=== PATIENT | male | born 1950 | race Two or more races ===

== ENCOUNTER 2020-08-13 15:10 | Inpatient (IN) | payer MEDICARE, OTHER ==
[2020-08-13] MEDS ORDERED: ONDANSETRON 4 MG/2 ML VIAL IVP STA (15:32)
[2020-08-13] MEDS ORDERED: MORPHINE SULFATE 4 MG/ML SYRINGE IV STA (15:32)
[2020-08-13] MEDS ORDERED: SODIUM CHLORIDE 0.9% 500 ML 500 ML IV STA (15:32)
[2020-08-13] MEDS ORDERED: LABETALOL 5 MG/ML VIAL MDV IVP STA ×2 (15:38→17:25)
--- NOTE | 2020-08-13 15:39 | ED ---
General Adult HPI - General Chief complaint: Weakness Stated complaint: WEAKNESS Time Seen by Provider: 08/13/20 15:15 Source: patient, EMS Mode of arrival: EMS Limitations: no limitations - History of Present Illness Initial comments: Patient presents to the ED by ambulance for evaluation. Patient reports that he has felt generally weak and somewhat dyspneic for the past week or so. Patient states that he been nauseated and has had multiple bouts of emesis today. Patient states that he was helped to the ground a couple of times today secondary to his weakness, but he denies sustaining any injuries. Patient admits to having a diffuse headache since this morning. Patient also admits to having an episode of chest pain at about 9 AM this morning, which he states resolved after a couple of minutes. Patient denies having any chest pain curren tly. Patient also admits to having urinary frequency today. Patient denies fever or chills, head injury, sudden onset of headache, LOC/syncope, neck pain or stiffness, focal numbness/weakness/neuro deficit, visual changes, speech difficulty, neck/back/extremity pain, cough or cold symptoms, palpitations, abdominal pain, diarrhea or constipation (patient states that he had a normal bowel movement earlier today), hematemesis/melena/bloody stools, dysuria, hematuria, leg or calf swelling or pain, or any other symptoms or complaints. Patient's blood glucose was 289 per EMS. Patient states that he does not have a primary care doctor, and he states that he does not see doctors. - Related Data Home Medications Medication Instructions Recorded Confirmed No Known Home Medications 08/13/20 08/13/20 Allergies Allergy/AdvReac Type Severity Reaction Status Date / Time No Known Allergies Allergy Verified 08/13/20 17:13 Review of Systems ROS Statement: Those systems with pertinent positive or pertinent negative responses have been documented in the HPI. ROS Other: All systems not noted in ROS Statement are negative. Past Medical History Past Medical History: No Reported History History of Any Multi-Drug Resistant Organisms: None Reported Past Surgical History: No Surgical Hx Reported Past Psychological History: No Psychological Hx Reported Smoking Status: Current every day smoker Past Alcohol Use History: None Reported Past Drug Use History: Marijuana General Exam Limitations: no limitations General appearance: alert, in no apparent distress Head exam: Present: atraumatic, normocephalic Eye exam: Present: normal appearance, PERRL, EOMI ENT exam: Present: mucous membranes moist Neck exam: Present: other (Trachea is in midline). Absent: tenderness, meningismus Respiratory exam: Present: normal lung sounds bilaterally. Absent: respiratory distress, wheezes, rales, rhonchi, stridor, chest wall tenderness Cardiovascular Exam: Present: normal rhythm, tachycardia, normal heart sounds, other (Normal radial pulses bilaterally) GI/Abdominal exam: Present: soft, normal bowel sounds. Absent: distended, tenderness, guarding Extremities exam: Present: full ROM, other (Pelvis is stable and nontender; negative Homans sign bilaterally). Absent: tenderness, pedal edema, calf tenderness Back exam: Absent: tenderness, CVA tenderness (R), CVA tenderness (L) Neurological exam: Present: alert, oriented X3, CN II-XII intact. Absent: motor sensory deficit Psychiatric exam: Present: normal affect, normal mood Skin exam: Present: warm, dry, intact, normal color Course Vital Signs 08/13/20 08/13/20 08/13/20 15:12 15:54 15:59 Temperature 97.7 F Pulse Rate 103 H 90 Respiratory 18 18 Rate Blood Pressure 233/136 236/155 189/119 O2 Sat by Pulse 97 97 Oximetry 08/13/20 08/13/20 08/13/20 16:22 17:12 17:52 Temperature 98.2 F Pulse Rate 78 81 Respiratory 18 18 Rate Blood Pressure 176/110 211/133 219/139 O2 Sat by Pulse 96 97 Oximetry 08/13/20 08/13/20 18:01 18:17 Temperature 98.2 F Pulse Rate 80 Respiratory 18 Rate Blood Pressure 192/117 162/104 O2 Sat by Pulse 96 Oximetry - Reevaluation(s) Reevaluation #1: 08/13/20 17:30 Case, H&P, test results and ED management thus far were discussed with Dr. Vanegas. He accepts hospital admission. He recommends starting the patient on a Cardene IV drip for blood pressure management. He recommends against heparin anticoagulation at this time. He has no further recommendations at this time. 08/13/20 17:53 Patient denies development of any new symptoms while in the ED. Patient continues to deny having any chest pain while in the ED. Patient has not had any vomiting while in the ED. Patient remains alert and breathing comfortably. Patient is aware of his test results, and he agrees with hospital admission this time. 08/13/20 18:07 Case and ED management were discussed with Dr. Melton (commercial trailer truck driver). He is aware that the patient will be admitted to the ICU. 08/13/20 18:22 Patient's blood pressure has now improved to 162/104. EKG Findings - EKG Comments: EKG Findings:: Sinus tachycardia, ventricular rate of 104 bpm, no ectopy, normal [place] and QRS intervals, QTc interval of 518 ms, normal axis, LVH, nonspecific ST abnormality Medical Decision Making - Medical Decision Making I suspect the patient's symptoms are likely secondary to hypertensive urgency. Patient's troponin is minimally elevated, but he denies having any chest pain since this morning, and his EKG is nonspecific. Patient's head CT shows no acute intracranial abnormality. Patient's CT angiography chest is negative for PE. Patient is afebrile and has no evidence of infection. Patient has been started on a Cardene IV drip for blood pressure management. Dr. Vanegas has seen the patient in the ED and has accepted hospital admission. Patient will be admitted to the ICU given that he is on a Cardene IV drip. Dr. Melton (commercial trailer truck driver) was notified. - Lab Data Result diagrams: 08/13/20 15:44 08/13/20 15:44 Lab Results 08/13/20 08/13/20 08/13/20 Range/Units 15:44 15:44 15:44 WBC 14.5 H (3.8-10.6) k/uL RBC 5.33 (4.30-5.90) m/uL Hgb 17.7 H (13.0-17.5) gm/dL Hct 46.7 (39.0-53.0) % MCV 87.6 (80.0-100.0) fL MCH 33.3 (25.0-35.0) pg MCHC 38.0 H (31.0-37.0) g/dL RDW 13.4 (11.5-15.5) % Plt Count 233 (150-450) k/uL MPV 7.7 Neutrophils % 91 % Lymphocytes % 5 % Monocytes % 3 % Eosinophils % 1 % Basophils % 0 % Neutrophils # 13.3 H (1.3-7.7) k/uL Lymphocytes # 0.7 L (1.0-4.8) k/uL Monocytes # 0.4 (0-1.0) k/uL Eosinophils # 0.1 (0-0.7) k/uL Basophils # 0.0 (0-0.2) k/uL PT 10.6 (9.0-12.0) sec INR 1.0 (<1.2) APTT 22.1 (22.0-30.0) sec D-Dimer 1.45 H (<0.60) mg/L FEU Sodium (137-145) mmol/L Potassium (3.5-5.1) mmol/L Chloride (98-107) mmol/L Carbon Dioxide (22-30) mmol/L Anion Gap mmol/L BUN (9-20) mg/dL Creatinine (0.66-1.25) mg/dL Est GFR (CKD-EPI)AfAm (>60 ml/min/1.73 sqM) Est GFR (CKD-EPI)NonAf (>60 ml/min/1.73 sqM) Glucose (74-99) mg/dL Lactic Ac Sepsis Rflx Plasma Lactic Acid Andrea (0.7-2.0) mmol/L Calcium (8.4-10.2) mg/dL Magnesium (1.6-2.3) mg/dL Total Bilirubin (0.2-1.3) mg/dL AST (17-59) U/L ALT (4-49) U/L Alkaline Phosphatase (38-126) U/L Creatine Kinase (55-170) U/L Troponin I (0.000-0.034) ng/mL NT-Pro-B Natriuret Pep pg/mL Total Protein (6.3-8.2) g/dL Albumin (3.5-5.0) g/dL Urine Color Light Yellow Urine Appearance Clear (Clear) Urine pH 7.5 (5.0-8.0) Ur Specific Garland 1.016 (1.001-1.035) Urine Protein 3+ H (Negative) Urine Glucose (UA) 4+ H (Negative) Urine Ketones Trace H (Negative) Urine Blood Large H (Negative) Urine Nitrite Negative (Negative) Urine Bilirubin Negative (Negative) Urine Urobilinogen <2.0 (<2.0) mg/dL Ur Leukocyte Esterase Negative (Negative) Urine RBC 5 (0-5) /hpf Urine WBC 1 (0-5) /hpf Ur Squamous Epith Cells <1 (0-4) /hpf Hyaline Casts 1 (0-2) /lpf Urine Mucus Rare H (None) /hpf Coronavirus (PCR) (Not Detectd) 08/13/20 08/13/20 08/13/20 Range/Units 15:44 15:44 15:44 WBC (3.8-10.6) k/uL RBC (4.30-5.90) m/uL Hgb (13.0-17.5) gm/dL Hct (39.0-53.0) % MCV (80.0-100.0) fL MCH (25.0-35.0) pg MCHC (31.0-37.0) g/dL RDW (11.5-15.5) % Plt Count (150-450) k/uL MPV Neutrophils % % Lymphocytes % % Monocytes % % Eosinophils % % Basophils % % Neutrophils # (1.3-7.7) k/uL Lymphocytes # (1.0-4.8) k/uL Monocytes # (0-1.0) k/uL Eosinophils # (0-0.7) k/uL Basophils # (0-0.2) k/uL PT (9.0-12.0) sec INR (<1.2) APTT (22.0-30.0) sec D-Dimer (<0.60) mg/L FEU Sodium 137 (137-145) mmol/L Potassium 3.9 (3.5-5.1) mmol/L Chloride 101 (98-107) mmol/L Carbon Dioxide 19 L (22-30) mmol/L Anion Gap 17 mmol/L BUN 17 (9-20) mg/dL Creatinine 1.50 H (0.66-1.25) mg/dL Est GFR (CKD-EPI)AfAm 54 (>60 ml/min/1.73 sqM) Est GFR (CKD-EPI)NonAf 47 (>60 ml/min/1.73 sqM) Glucose 308 H (74-99) mg/dL Lactic Ac Sepsis Rflx Plasma Lactic Acid Andrea 4.8 H* (0.7-2.0) mmol/L Calcium 9.5 (8.4-10.2) mg/dL Magnesium 1.6 (1.6-2.3) mg/dL Total Bilirubin 1.4 H (0.2-1.3) mg/dL AST 41 (17-59) U/L ALT 44 (4-49) U/L Alkaline Phosphatase 130 H (38-126) U/L Creatine Kinase 227 H (55-170) U/L Troponin I 0.105 H* (0.000-0.034) ng/mL NT-Pro-B Natriuret Pep pg/mL Total Protein 9.0 H (6.3-8.2) g/dL Albumin 5.0 (3.5-5.0) g/dL Urine Color Urine Appearance (Clear) Urine pH (5.0-8.0) Ur Specific [place] (1.001-1.035) Urine Protein (Negative) Urine Glucose (UA) (Negative) Urine Ketones (Negative) Urine Blood (Negative) Urine Nitrite (Negative) Urine Bilirubin (Negative) Urine Urobilinogen (<2.0) mg/dL Ur Leukocyte Esterase (Negative) Urine RBC (0-5) /hpf Urine WBC (0-5) /hpf Ur Squamous Epith Cells (0-4) /hpf Hyaline Casts (0-2) /lpf Urine Mucus (None) /hpf Coronavirus (PCR) (Not Detectd) 08/13/20 08/13/20 08/13/20 Range/Units 15:44 15:44 16:14 WBC (3.8-10.6) k/uL RBC (4.30-5.90) m/uL Hgb (13.0-17.5) gm/dL Hct (39.0-53.0) % MCV (80.0-100.0) fL MCH (25.0-35.0) pg MCHC (31.0-37.0) g/dL RDW (11.5-15.5) % Plt Count (150-450) k/uL MPV Neutrophils % % Lymphocytes % % Monocytes % % Eosinophils % % Basophils % % Neutrophils # (1.3-7.7) k/uL Lymphocytes # (1.0-4.8) k/uL Monocytes # (0-1.0) k/uL Eosinophils # (0-0.7) k/uL Basophils # (0-0.2) k/uL PT (9.0-12.0) sec INR (<1.2) APTT (22.0-30.0) sec D-Dimer (<0.60) mg/L FEU Sodium (137-145) mmol/L Potassium (3.5-5.1) mmol/L Chloride (98-107) mmol/L Carbon Dioxide (22-30) mmol/L Anion Gap mmol/L BUN (9-20) mg/dL Creatinine (0.66-1.25) mg/dL Est GFR (CKD-EPI)AfAm (>60 ml/min/1.73 sqM) Est GFR (CKD-EPI)NonAf (>60 ml/min/1.73 sqM) Glucose (74-99) mg/dL Lactic Ac Sepsis Rflx Y Plasma Lactic Acid Andrea (0.7-2.0) mmol/L Calcium (8.4-10.2) mg/dL Magnesium (1.6-2.3) mg/dL Total Bilirubin (0.2-1.3) mg/dL AST (17-59) U/L ALT (4-49) U/L Alkaline Phosphatase (38-126) U/L Creatine Kinase (55-170) U/L Troponin I (0.000-0.034) ng/mL NT-Pro-B Natriuret Pep 9110 pg/mL Total Protein (6.3-8.2) g/dL Albumin (3.5-5.0) g/dL Urine Color Urine Appearance (Clear) Urine pH (5.0-8.0) Ur Specific [place] (1.001-1.035) Urine Protein (Negative) Urine Glucose (UA) (Negative) Urine Ketones (Negative) Urine Blood (Negative) Urine Nitrite (Negative) Urine Bilirubin (Negative) Urine Urobilinogen (<2.0) mg/dL Ur Leukocyte Esterase (Negative) Urine RBC (0-5) /hpf Urine WBC (0-5) /hpf Ur Squamous Epith Cells (0-4) /hpf Hyaline Casts (0-2) /lpf Urine Mucus (None) /hpf Coronavirus (PCR) Not Detected (Not Detectd) - Radiology Data Radiology results: report reviewed (Noncontrast head CT: No acute intracranial abnormality, old left lacunar infarct; chest x-ray: No acute process; CT angiography chest: No acute PE, trace bilateral pleural effusions with minimal atelectasis) Critical Care Time Critical Care Time: Yes Total Critical Care Time: 50 (Hypertensive urgency) Disposition Clinical Impression: Generalized weakness, Vomiting, Dyspnea, Headache, Hypertension, Chest pain, Elevated troponin, Hypertensive urgency Disposition: ADMITTED IP TO THIS [facility] Condition: Stable Is patient prescribed a controlled substance at d/c from ED?: No Referrals: None,Stated [Primary Care Provider] - 1-2 days Time of Disposition: 17:35
[2020-08-13 15:54] LABS: Basophils % (A) 0 %; Eosinophils # (A) 0.1 k/uL (0-0.7); Eosinophils % (A) 1 %; HCT 46.7 % (39.0-53.0); HGB 17.7 gm/dL (13.0-17.5); Lymphocytes # (A) 0.7 k/uL (1.0-4.8); Lymphocytes % (A) 5 %; MCH 33.3 pg (25.0-35.0); MCV 87.6 fL (80.0-100.0); Mean Platelet Volume 7.7; Monocytes # (A) 0.4 k/uL (0-1.0); Monocytes % (A) 3 %; Neutrophils # (A) 13.3 k/uL (1.3-7.7); Neutrophils % (A) 91 %; Platelet Count 233 k/uL (150-450); RBC 5.33 m/uL (4.30-5.90); RDW 13.4 % (11.5-15.5); WBC 14.5 k/uL (3.8-10.6)
[2020-08-13 16:04] LABS: Calcium 9.5 mg/dL (8.4-10.2); Magnesium 1.6 mg/dL (1.6-2.3); Potassium 3.9 mmol/L (3.5-5.1); Total Bilirubin 1.4 mg/dL (0.2-1.3)
[2020-08-13 16:11] LABS: Partial Thromboplastin Time 22.1 sec (22.0-30.0); Prothrombin Time 10.6 sec (9.0-12.0)
[2020-08-13 16:18] LABS: D-Dimer 1.45 mg/L FEU (<0.60)
--- NOTE | 2020-08-13 16:20 | CT ---
EXAMINATION TYPE: CT brain wo con DATE OF EXAM: 08/13/2020 COMPARISON: None available. HISTORY: Weakness, headache and vomiting. CT DLP: 1125.4 mGycm Automated exposure control for dose reduction was used. FINDINGS: There is no acute intracranial hemorrhage, midline shift or hydrocephalus. There is old left lacunar infarct. Otherwise the white matter is grossly preserved. The paranasal sinuses and mastoid air cells are adequately aerated. The calvarium is intact. IMPRESSION: NO ACUTE INTRACRANIAL ABNORMALITY. OLD LEFT LACUNAR INFARCT.
--- NOTE | 2020-08-13 16:23 | XR ---
EXAMINATION TYPE: XR chest 1V portable DATE OF EXAM: 08/13/2020 COMPARISON: NONE HISTORY: Weakness. TECHNIQUE: Single frontal view of the chest is obtained. FINDINGS: There is no focal air space opacity, pleural effusion, or pneumothorax seen. The cardiac silhouette size is borderline enlarged. The osseous structures are intact. IMPRESSION: No acute process.
[2020-08-13] MEDS ORDERED: SODIUM CHLORIDE 0.9% 500 ML 500 ML IV ONE (16:25)
[2020-08-13 16:36] LABS: Appearance,Urine Clear (Clear); Bilirubin,Urine Negative (Negative); Blood,Urine Large (Negative); Color,Urine Light Yellow; Glucose,Urine (UA) 4+ (Negative); Hyaline Casts,Urine 1 /lpf (0-2); Ketones,Urine Trace (Negative); Leukocyte Esterase,Urine Negative (Negative); Mucus,Urine Rare /hpf; Nitrite,Urine Negative (Negative); PH, Urine 7.5 (5.0-8.0); Protein,Urine 3+ (Negative); RBC,Urine 5 /hpf (0-5); Specific Gravity,Urine 1.016 (1.001-1.035); Squamous Epithelial Cell,Urine <1 /hpf (0-4); Urobilinogen,Urine <2.0 mg/dL (<2.0); WBC,Urine 1 /hpf (0-5)
--- NOTE | 2020-08-13 16:57 | CT ---
EXAMINATION TYPE: CT chest angio for PE DATE OF EXAM: 08/13/2020 COMPARISON: Same-day radiograph. HISTORY: elevated d-dimer CT DLP: 525.1 mGycm Automated exposure control for dose reduction was used. CONTRAST: CT Chest for pulmonary embolism performed with with IV Contrast, patient injected with 80cc mL of Iso sierra 370. FINDINGS: LUNGS: There are trace bilateral pleural effusions with adjacent atelectasis. There is mild to modera te centrilobular emphysema. No significant infiltrate, consolidation, pleural effusion or pneumothora x. No suspicious pulmonary nodules. MEDIASTINUM: There is satisfactory enhancement of the pulmonary artery and its branches, there is no CT evidence for pulmonary embolism. There are no greater than 1 cm hilar or mediastinal lymph nodes. No pericardial effusion is seen. OTHER: No additional significant abnormality is seen. IMPRESSION: No acute PE. Trace bilateral pleural effusions with minimal atelectasis.
[2020-08-13] MEDS ORDERED: ASPIRIN 81 MG PO STA (17:25)
[2020-08-13] MEDS: niCARdipine 20 MG in SODIUM CHLORIDE 0.9% 192 ML IV SCH ×2 (17:49→22:22)
[2020-08-13] MEDS ORDERED: NALOXONE 0.4 MG/ML 1 ML VIAL IV PRN (18:43)
[2020-08-13] MEDS ORDERED: IPRATROPIUM-ALBUTEROL 3 ML NEB INHALATION PRN (18:43)
[2020-08-13] MEDS ORDERED: ACETAMINOPHEN TAB 325 MG TAB PO PRN (18:43)
[2020-08-13] MEDS ORDERED: MORPHINE SULFATE 2 MG/ML SYRINGE IV PRN (18:43)
--- NOTE | 2020-08-13 18:50 | P.HPIM ---
History of Present Illness H&P Date: 08/13/20 Chief Complaint: dyspnea, weakness 69 year old man with obesity I, active smoker, who does not see doctors regularly, presented with LE weakness, intermittent chest pain, and dyspnea. Patient is with his who supplements history. They tell me that for the last week, he has developed increased shortness of breath requiring inhalers and updrafts from his 's supply. He also noted episodes of nausea and vomiting, mostly dry heaves. He became so weak that he started to require help to go to the bathroom, and reports he has been urinating more frequently. ROS is positive for pressure like chest pain, dyspnea, LE swelling, nausea, vomiting, headache. Negative for fevers, chills, sick contacts, abd pain, dysuria, dyschezia, loss of appetite, diarrhea, constipation, numbness of extremities. In the ER, patient is noted to be hypertensive to 236/155, 103, afebrile. Labs demonstrate leukocytosis to 14.5, Hgb 17.7. D-Dimer is 1.45. BMP is remarkable for Cr 1.5, LA 4.8, glucose 308. UA shows 3+ protein, 4+ glucose, large blood, 5 RBCs. BNP was elevated to 9110, Troponin was elevated to .105. CXR did not show acute cardiopulmonary pathology. EKG demonstrates sinus tachycardia, LVH, diffuse ST depressions. Review of Systems All Systems reviewed and pertinent positives and negatives noted in HPI, all other symptoms are negative Past Medical History Past Medical History: No Reported History History of Any Multi-Drug Resistant Organisms: None Reported Past Surgical History: No Surgical Hx Reported Past Psychological History: No Psychological Hx Reported Smoking Status: Current every day smoker Past Alcohol Use History: None Reported Past Drug Use History: Marijuana Medications and Allergies Home Medications Medication Instructions Recorded Confirmed Type No Known Home Medications 08/13/20 08/13/20 History Allergies Allergy/AdvReac Type Severity Reaction Status Date / Time No Known Allergies Allergy Verified 08/13/20 17:13 Physical Exam Osteopathic Statement: *. No significant issues noted on an osteopathic structural exam other than those noted in the History and Physical/Consult. Vitals: Vital Signs Temp Pulse Resp BP Pulse Ox 08/13/20 18:01 192/117 08/13/20 17:52 81 18 219/139 97 08/13/20 17:12 98.2 F 78 18 211/133 96 08/13/20 16:22 176/110 08/13/20 15:59 189/119 08/13/20 15:54 90 18 236/155 97 08/13/20 15:12 97.7 F 103 H 18 233/136 97 Intake and Output 08/13/20 08/13/20 08/13/20 06:59 14:59 22:59 Other: Weight 90.718 kg Gen: awake, alert HEENT: normocephalic, atraumatic, good hearing acuity, moist mucous membranes Resp: good air exchange, breathing comfortably with no accessory muscle use, diminished air exchange, posterior crackles CVS: good distal perfusion x 4, RRR, +S4, no murmurs GI: soft, NTTP, ND : no SPT, no CVAT, waldron catheter not present MSK: 2+ pitting edema, no clubbing Neuro: non-focal, moving all extremities Psych: cooperative, euthymic mood Results CBC & Chem 7: 08/13/20 15:44 08/13/20 15:44 Labs: Abnormal Lab Results - Last 24 Hours (Table) 08/13/20 08/13/20 08/13/20 Range/Units 15:44 15:44 15:44 WBC 14.5 H (3.8-10.6) k/uL Hgb 17.7 H (13.0-17.5) gm/dL MCHC 38.0 H (31.0-37.0) g/dL Neutrophils # 13.3 H (1.3-7.7) k/uL Lymphocytes # 0.7 L (1.0-4.8) k/uL D-Dimer 1.45 H (<0.60) mg/L FEU Carbon Dioxide (22-30) mmol/L Creatinine (0.66-1.25) mg/dL Glucose (74-99) mg/dL Plasma Lactic Acid Andrea (0.7-2.0) mmol/L Total Bilirubin (0.2-1.3) mg/dL Alkaline Phosphatase (38-126) U/L Creatine Kinase (55-170) U/L Troponin I (0.000-0.034) ng/mL Total Protein (6.3-8.2) g/dL Urine Protein 3+ H (Negative) Urine Glucose (UA) 4+ H (Negative) Urine Ketones Trace H (Negative) Urine Blood Large H (Negative) Urine Mucus Rare H (None) /hpf 08/13/20 08/13/20 08/13/20 Range/Units 15:44 15:44 15:44 WBC (3.8-10.6) k/uL Hgb (13.0-17.5) gm/dL MCHC (31.0-37.0) g/dL Neutrophils # (1.3-7.7) k/uL Lymphocytes # (1.0-4.8) k/uL D-Dimer (<0.60) mg/L FEU Carbon Dioxide 19 L (22-30) mmol/L Creatinine 1.50 H (0.66-1.25) mg/dL Glucose 308 H (74-99) mg/dL Plasma Lactic Acid Andrea 4.8 H* (0.7-2.0) mmol/L Total Bilirubin 1.4 H (0.2-1.3) mg/dL Alkaline Phosphatase 130 H (38-126) U/L Creatine Kinase 227 H (55-170) U/L Troponin I 0.105 H* (0.000-0.034) ng/mL Total Protein 9.0 H (6.3-8.2) g/dL Urine Protein (Negative) Urine Glucose (UA) (Negative) Urine Ketones (Negative) Urine Blood (Negative) Urine Mucus (None) /hpf Assessment and Plan Assessment: 1. Hypertensive Emergency 2. Elevated Troponin secondary to #1 3. VANIA 4. Acute Heart Failure Exacerbation, unspecified 5. Hyperglycemia 6. Obesity I 7. Nicotine Abuse 69 year old man with obesity, nicotine abuse, who doesnt follow with a doctor presented with dyspnea, weakness, and intermittent chest pain and nausea and was found to have multiple metabolic abnormalities with concern for acute kidney failure and heart failure exacerbation in background of hypertensive emergency. Plan: - admit to telemetry, ICU - trend troponins - EKG PRN for chest pain - pulmonary consult for ICU management - Cardene gtt with goal SBP 160-180 for next 8 hours, then can add oral BP meds and off-titrate gtt - f/u UA microscopy - I/Os, daily weights - lasix 20mg IV daily - echo, pending - A1c pending, aspart low dose SSI - Lipid panel, pending - TSH/FT4, pending - weight loss counseling outpatient - nicotine patch if requested Full Code DVT PPx: heparin 5000U SQ
[2020-08-13 19:00] LABS: Glucose,Whole Blood 246 mg/dL (75-99)
[2020-08-13 20:35] LABS: Appearance,Urine Cloudy (Clear); Bacteria,Urine Rare /hpf; Bilirubin,Urine Negative (Negative); Blood,Urine Moderate (Negative); Color,Urine Light Yellow; Glucose,Urine (UA) 3+ (Negative); Ketones,Urine Negative (Negative); Leukocyte Esterase,Urine Trace (Negative); Mucus,Urine Rare /hpf; Nitrite,Urine Negative (Negative); PH, Urine 5.5 (5.0-8.0); Protein,Urine 2+ (Negative); RBC,Urine 13 /hpf (0-5); Squamous Epithelial Cell,Urine 3 /hpf (0-4); Urobilinogen,Urine <2.0 mg/dL (<2.0); WBC,Urine 9 /hpf (0-5)
[2020-08-13] MEDS: FUROSEMIDE 10 MG/ML 2 ML VIAL IV SCH (20:38)
[2020-08-13 20:55] LABS: Glucose,Whole Blood 228 mg/dL (75-99)
[2020-08-13] MEDS: INSULIN ASPART (NovoLOG) 100 UNIT/ML VIAL SQ SCH (22:21)
[2020-08-14] MEDS: HEPARIN SODIUM,PORCINE 5,000 UNIT/ML 1 ML VIAL SQ SCH ×3 (01:30→17:17)
[2020-08-14] MEDS: niCARdipine 20 MG in SODIUM CHLORIDE 0.9% 192 ML IV SCH ×4 (01:45→17:14)
[2020-08-14] MEDS ORDERED: ONDANSETRON 4 MG/2 ML VIAL IVP PRN (03:25)
[2020-08-14 04:22] LABS: Basophils % (A) 0 %; Eosinophils % (A) 0 %; HCT 47.2 % (39.0-53.0); HGB 16.6 gm/dL (13.0-17.5); Lymphocytes # (A) 1.3 k/uL (1.0-4.8); Lymphocytes % (A) 8 %; MCH 31.2 pg (25.0-35.0); MCHC 35.3 g/dL (31.0-37.0); MCV 88.5 fL (80.0-100.0); Mean Platelet Volume 7.4; Monocytes # (A) 0.8 k/uL (0-1.0); Monocytes % (A) 5 %; Neutrophils # (A) 15.3 k/uL (1.3-7.7); Neutrophils % (A) 87 %; Platelet Count 219 k/uL (150-450); RBC 5.33 m/uL (4.30-5.90); WBC 17.6 k/uL (3.8-10.6)
[2020-08-14 04:28] LABS: Albumin 4.3 g/dL (3.5-5.0); Calcium 9.3 mg/dL (8.4-10.2); Magnesium 1.6 mg/dL (1.6-2.3); Potassium 3.5 mmol/L (3.5-5.1); Total Bilirubin 0.8 mg/dL (0.2-1.3); Total Protein 7.8 g/dL (6.3-8.2)
[2020-08-14] MEDS: POTASSIUM CHLORIDE ER 20 MEQ TAB.ER PO SCH ×2 (06:48→08:31)
[2020-08-14] MEDS: MAGNESIUM SULFATE-D5W PMX 1 GM in DEXTROSE/WATER 1 100ML.BAG IVPB SCH ×2 (06:48→08:31)
[2020-08-14 07:05] LABS: Glucose,Whole Blood 176 mg/dL (75-99)
[2020-08-14] MEDS: INSULIN ASPART (NovoLOG) 100 UNIT/ML VIAL SQ SCH ×4 (07:06→22:16)
[2020-08-14] MEDS ORDERED: INSULIN ASPART (NovoLOG) 100 UNIT/ML VIAL SQ SCH (07:30)
--- NOTE | 2020-08-14 07:40 | XR ---
EXAMINATION TYPE: XR chest 1V portable DATE OF EXAM: 08/14/2020 COMPARISON: 08/13/2020 HISTORY: Shortness of breath TECHNIQUE: Single frontal view of the chest is obtained. FINDINGS: Diffuse or special findings with basilar consolidation and small effusion. Heart is promin ent. No pneumothorax. Osseous structures stable. Arthropathy of the shoulders. IMPRESSION: Diffuse interstitial pattern with bilateral infiltrate and pleural effusion correlate fo r CHF versus interstitial pneumonia.
[2020-08-14] MEDS: FUROSEMIDE 10 MG/ML 2 ML VIAL IV SCH (08:31)
[2020-08-14] MEDS ORDERED: METOPROLOL TARTRATE 25 MG TAB PO SCH (09:00)
[2020-08-14] MEDS ORDERED: amLODIPine 5 MG TAB PO SCH (09:00)
--- NOTE | 2020-08-14 11:00 | CT ---
EXAMINATION TYPE: CT brain wo con DATE OF EXAM: 08/14/2020 COMPARISON: 08/13/2020 HISTORY: falling frequently headache and weakness CT DLP: 1158.4 mGycm Automated exposure control for dose reduction was used. FINDINGS: Mild to moderate generalized degenerative change. Faint low-attenuation white matter bilaterally. Low attenuation left basal ganglia compatible with remote lacunar infarct. No acute hemorrhage or mass effect. No midline shift. Calvarium intact. Orbits are symmetric. Sinuses are clear. Changes of chronic left mastoiditis noted. IMPRESSION: DEGENERATIVE AND REMOTE ISCHEMIC CHANGE.
[2020-08-14 11:15] LABS: Glucose,Whole Blood 169 mg/dL (75-99)
--- NOTE | 2020-08-14 12:08 | P.CNPUL ---
History of Present Illness Consult date: 08/14/20 Requesting physician: Paulino Vanegas Reason for consult: other (Hypertensive emergency) Chief complaint: Weakness and shortness of breath for the past week History of present illness: This is a 69-year-old white male, no previous documented medical history, patient has not been seen by any physician for many years. Patient is on no medications. His was concerned because the patient has been generally weak and somewhat short of breath for the last 1 week. Patient had episodes of na usea and vomiting the day of admission. Patient has also been complaining of intermittent episodes of headaches. And he had 1 episode of chest pain a few hours before he arrived to the ER and it resolved on its own within a few minutes. He also had frequent urinations. Had no fever no chills, no cough, no wheezing. No syncopal episodes. No blurred vision. No dizziness. No melena no hematemesis. No bloody stools. Patient was brought into the ER by EMS because of the concern raised by his regarding his symptoms. And his blood sugar in the ambulance was 289. Blood pressure in the ER was 236/155. His BNP was 9110, and his troponin was a bit elevated. Chest x-ray showed no evidence of acute cardiopulmonary process. EKG was abnormal showing diffuse ST depressions. Considering his hypertensive emergency presentation, and multiple symptoms, patient was admitted to the ICU overnight, and he was placed on Cardene drip. Patient is yet to be seen by cardiology on consultation for his elevated troponin. I did recommend starting the patient on beta blockers and calcium channel blockers, and we'll try to discontinue Cardene sometime later today. CBC showed leukocytosis. WBC count 17.6. Otherwise the CBC was normal. BUN was noted to be 20 creatinine 1.82, consistent with acute kidney injury. No base line creatinine available. Troponin was 0.127, follow-up troponin was 0.126. Review of Systems Constitutional: Denies weight loss, denies fever chills denies any constitutional symptoms. HEENT: Negative. Pulmonary: Minimal shortness of breath prior to presentation, presently asymptomatic, denies shortness of breath denies chest pain, denies any cough or wheezing. Cardiac: As noted in HPI. GI: Negative. Genitourinary: Negative. Musculoskeletal: Weakness for the last 1 week. Endocrine: Frequent urination, polydipsia, no heat or cold intolerance. Hematologic: No clotting bleeding or bruising Psychiatric: No symptoms of active depression. Neurologic: Headache and intermittent episodes of weakness and falling according to his . Skin: No rash Past Medical History Past Medical History: No Reported History History of Any Multi-Drug Resistant Organisms: None Reported Past Surgical History: No Surgical Hx Reported Past Anesthesia/Blood Transfusion Reactions: No Reported Reaction Smoking Status: Current every day smoker, Heavy tobacco smoker - Past Family History Father Family Medical History: Diabetes Mellitus, Myocardial Infarction ([place]) Additional Family Medical History / Comment(s): Had leg amputation Mother History Unknown: Yes Family Medical History: No Reported History Sister(s) Family Medical History: Diabetes Mellitus Additional Family Medical History / Comment(s): 1 sister had arm amputated due to diabetes Medications and Allergies Home Medications Medication Instructions Recorded Confirmed Type No Known Home Medications 08/13/20 08/13/20 History Allergies Allergy/AdvReac Type Severity Reaction Status Date / Time No Known Allergies Allergy Verified 08/13/20 17:13 Physical Exam Vitals: Vital Signs Temp Pulse Resp BP Pulse Ox 08/14/20 11:00 87 23 154/97 94 L 08/14/20 10:30 166/104 08/14/20 10:15 91 18 159/102 94 L 08/14/20 10:00 92 18 169/104 95 08/14/20 09:45 94 21 169/106 95 08/14/20 09:30 96 14 94 L 08/14/20 09:15 98 23 171/107 95 08/14/20 09:00 94 17 160/102 95 08/14/20 08:45 98 16 158/118 94 L 08/14/20 08:30 99 14 136/95 93 L 08/14/20 08:15 93 19 132/91 94 L 08/14/20 08:00 99.1 F 93 18 136/95 94 L 08/14/20 07:45 95 28 H 153/101 95 08/14/20 07:30 93 21 158/96 94 L 08/14/20 07:22 98 08/14/20 07:00 99 15 169/103 95 08/14/20 06:45 94 18 162/94 93 L 08/14/20 06:30 94 17 157/100 93 L 08/14/20 06:15 95 21 159/92 94 L 08/14/20 06:00 92 17 151/98 93 L 08/14/20 05:45 94 16 159/98 93 L 08/14/20 05:30 92 17 163/98 95 08/14/20 05:15 92 20 164/95 94 L 08/14/20 05:00 92 20 157/104 95 08/14/20 04:45 89 14 148/94 94 L 08/14/20 04:30 87 18 145/91 94 L 08/14/20 04:15 87 17 145/93 94 L 08/14/20 04:00 98.5 F 92 17 147/101 93 L 08/14/20 03:45 113 H 22 92 L 08/14/20 03:30 96 15 155/98 94 L 08/14/20 03:15 96 19 148/90 95 08/14/20 03:00 93 19 157/97 94 L 08/14/20 02:45 94 17 154/95 94 L 08/14/20 02:30 91 16 159/101 94 L 08/14/20 02:15 90 19 150/95 93 L 08/14/20 02:00 90 17 142/92 94 L 08/14/20 01:45 92 18 161/100 94 L 08/14/20 01:30 93 18 160/99 95 08/14/20 01:15 88 17 150/91 94 L 08/14/20 01:00 86 14 140/91 94 L 08/14/20 00:45 87 16 146/123 95 08/14/20 00:30 81 12 145/87 93 L 08/14/20 00:15 89 12 140/94 94 L 08/14/20 00:00 98.3 F 86 15 142/87 95 08/13/20 23:45 85 15 144/87 95 08/13/20 23:30 86 14 146/89 95 08/13/20 23:15 87 16 180/106 96 08/13/20 23:00 87 20 138/88 93 L 08/13/20 22:45 86 17 149/91 93 L 08/13/20 22:30 91 20 157/100 93 L 08/13/20 22:15 87 13 151/96 94 L 08/13/20 22:00 87 20 146/99 94 L 08/13/20 21:45 89 22 167/105 94 L 08/13/20 21:30 97 16 153/92 94 L 08/13/20 21:15 81 17 157/99 94 L 08/13/20 21:00 84 20 149/99 94 L 08/13/20 20:45 85 18 160/102 95 08/13/20 20:30 82 16 164/103 95 08/13/20 20:15 81 17 150/93 95 08/13/20 20:00 98.2 F 83 17 158/96 96 08/13/20 19:45 89 19 124/87 96 08/13/20 19:30 80 16 136/92 94 L 08/13/20 19:20 79 17 94 L 08/13/20 19:10 82 14 155/95 94 L 08/13/20 19:00 81 14 175/100 95 08/13/20 18:52 84 14 08/13/20 18:41 156/97 08/13/20 18:27 79 18 166/99 97 08/13/20 18:17 98.2 F 80 18 162/104 96 08/13/20 18:01 192/117 08/13/20 17:52 81 18 219/139 97 08/13/20 17:12 98.2 F 78 18 211/133 96 08/13/20 16:22 176/110 08/13/20 15:59 189/119 08/13/20 15:54 90 18 236/155 97 08/13/20 15:12 97.7 F 103 H 18 233/136 97 Intake and Output 08/13/20 08/14/20 08/14/20 22:59 06:59 14:59 Intake Total 646.000 869.167 353.667 Output Total 550 1210 585 Balance 96.000 -340.833 -231.333 Intake: IV 120 0.9 20 Magnesium Sulfate-D5w Pmx 100 1 gm In Dextrose/Water 1 100ml.bag @ 100 mls/hr IVPB Q1H [facility]CI[facility]O Rx#: [id number] Intake, IV Titration 196.000 369.167 133.667 Amount niCARdipine 20 mg In 196.000 369.167 133.667 Sodium Chloride 0.9% 192 ml @ 5 MG/HR 50 mls/hr IV .Q4H [facility]CI[facility]O Rx#:[id number] Oral 450 500 100 Output: Urine 550 710 585 Emesis 500 Other: Voiding Method Urinal Urinal Urinal # Voids 0 0 0 Weight 96 kg 98.5 kg Physical Exam: Revealed 69-year-old white male in no distress. Head: Atraumatic, normocephalic. HEENT:[Neck is supple.] [No neck masses.] [No thyromegaly.] [No JVD.] Chest: [Clear throughout, no crackles, no rhonchi, no wheezes.] Cardiac Exam: [Normal S1 and S2, no S3 gallop, no murmur.] Abdomen: [Soft, nontender, no megaly, no rebound, no guarding, normal bowel sounds.] Extremities: [No clubbing, no edema, no cyanosis.] Neurological Exam: [No focal neurologic deficit.] Alert and oriented 3. Psychiatric: Normal mood, affect and normal mental status examination. Skin: No rashes. Musculoskeletal: No limitation in range of motion and no deformities. Results - Laboratory Findings CBC and BMP: 08/14/20 03:52 08/14/20 03:52 PT/INR, D-dimer PT 10.6 sec (9.0-12.0) 08/13/20 15:44 INR 1.0 (<1.2) 08/13/20 15:44 D-Dimer 1.45 mg/L FEU (<0.60) H 08/13/20 15:44 Abnormal lab findings: Abnormal Labs 08/13/20 08/13/20 08/13/20 15:44 15:44 15:44 WBC 14.5 H Hgb 17.7 H MCHC 38.0 H Neutrophils # 13.3 H Lymphocytes # 0.7 L D-Dimer 1.45 H Carbon Dioxide Creatinine Glucose POC Glucose (mg/dL) Plasma Lactic Acid Andrea Total Bilirubin Alkaline Phosphatase Creatine Kinase Troponin I Total Protein Triglycerides Cholesterol LDL Cholesterol, Calc Urine Protein 3+ H Urine Glucose (UA) 4+ H Urine Ketones Trace H Urine Blood Large H Ur Leukocyte Esterase Urine RBC Urine WBC Urine Bacteria Urine Mucus Rare H 08/13/20 08/13/20 08/13/20 15:44 15:44 15:44 WBC Hgb MCHC Neutrophils # Lymphocytes # D-Dimer Carbon Dioxide 19 L Creatinine 1.50 H Glucose 308 H POC Glucose (mg/dL) Plasma Lactic Acid Andrea 4.8 H* Total Bilirubin 1.4 H Alkaline Phosphatase 130 H Creatine Kinase 227 H Troponin I 0.105 H* Total Protein 9.0 H Triglycerides Cholesterol LDL Cholesterol, Calc Urine Protein Urine Glucose (UA) Urine Ketones Urine Blood Ur Leukocyte Esterase Urine RBC Urine WBC Urine Bacteria Urine Mucus 08/13/20 08/13/20 08/13/20 18:25 18:25 18:59 WBC Hgb MCHC Neutrophils # Lymphocytes # D-Dimer Carbon Dioxide Creatinine Glucose POC Glucose (mg/dL) 246 H Plasma Lactic Acid Andrea 2.7 H* Total Bilirubin Alkaline Phosphatase Creatine Kinase Troponin I 0.123 H* Total Protein Triglycerides Cholesterol LDL Cholesterol, Calc Urine Protein Urine Glucose (UA) Urine Ketones Urine Blood Ur Leukocyte Esterase Urine RBC Urine WBC Urine Bacteria Urine Mucus 08/13/20 08/13/20 08/13/20 20:15 20:46 21:20 WBC Hgb MCHC Neutrophils # Lymphocytes # D-Dimer Carbon Dioxide Creatinine Glucose POC Glucose (mg/dL) 228 H Plasma Lactic Acid Andrea Total Bilirubin Alkaline Phosphatase Creatine Kinase Troponin I 0.127 H* Total Protein Triglycerides Cholesterol LDL Cholesterol, Calc Urine Protein 2+ H Urine Glucose (UA) 3+ H Urine Ketones Urine Blood Moderate H Ur Leukocyte Esterase Trace H Urine RBC 13 H Urine WBC 9 H Urine Bacteria Rare H Urine Mucus Rare H 08/14/20 08/14/20 08/14/20 03:52 03:52 03:52 WBC 17.6 H Hgb MCHC Neutrophils # 15.3 H Lymphocytes # D-Dimer Carbon Dioxide Creatinine 1.82 H Glucose 178 H POC Glucose (mg/dL) Plasma Lactic Acid Andrea Total Bilirubin Alkaline Phosphatase Creatine Kinase Troponin I 0.126 H* Total Protein Triglycerides 161 H Cholesterol 260 H LDL Cholesterol, Calc 176 H Urine Protein Urine Glucose (UA) Urine Ketones Urine Blood Ur Leukocyte Esterase Urine RBC Urine WBC Urine Bacteria Urine Mucus 08/14/20 08/14/20 07:03 11:13 WBC Hgb MCHC Neutrophils # Lymphocytes # D-Dimer Carbon Dioxide Creatinine Glucose POC Glucose (mg/dL) 176 H 169 H Plasma Lactic Acid Andrea Total Bilirubin Alkaline Phosphatase Creatine Kinase Troponin I Total Protein Triglycerides Cholesterol LDL Cholesterol, Calc Urine Protein Urine Glucose (UA) Urine Ketones Urine Blood Ur Leukocyte Esterase Urine RBC Urine WBC Urine Bacteria Urine Mucus - Diagnostic Findings Chest x-ray: image reviewed (Chest x-ray this morning showed evidence of mild interstitial edema.) CT scan - chest: image reviewed (Chest x-ray on admission showed no evidence of active disease. Follow-up chest x-ray this morning is suggestive of mild interstitial edema.), other Additional studies: Brain CT is unremarkable. Assessment and Plan Assessment: Impression: Acute hypertensive emergency. Acute diastolic congestive heart failure secondary to hypertensive emergency. Acute kidney injury secondary to hypertensive emergency. Type 2 diabetes is strongly suspected. Nicotine dependence syndrome. Suspect non-ST elevation myocardial infarction. Recommendation: Continue present supportive care measures in the ICU. Start patient on oral blood pressure medications and titrate Cardene down until discontinued. Cardiology to see the patient on consultation. Gentle diuresis would be recommended at this point considering the patient is developing mild interstitial edema. Echocardiogram is pending. Nicotine patch is recommended. Continue GI and DVT prophylaxis. We'll start the patient on metoprolol and on amlodipine. We'll continue to follow closely while in the ICU. Time with Patient: Greater than 30
[2020-08-14] MEDS: ASPIRIN 81 MG PO SCH (12:18)
[2020-08-14] MEDS ORDERED: hydrALAZINE HCL 25 MG TAB PO PRN (12:43)
[2020-08-14] MEDS ORDERED: ISOSORBIDE MONONITRATE ER 30 MG TAB.ER.24H PO SCH (12:45)
--- NOTE | 2020-08-14 12:57 | P.PN ---
Subjective Progress Note Date: 08/14/20 No new complaints. Pt reports resolution of nausea, vomiting, headache, chest pain, and improvement in dyspnea. Still reports LE weakness. Objective - Vital Signs Vital signs: Vital Signs Temp 99.8 F H 08/14/20 12:00 Pulse 78 08/14/20 12:15 Resp 19 08/14/20 12:15 BP 139/103 08/14/20 12:15 Pulse Ox 94 L 08/14/20 12:15 Intake & Output 08/13/20 08/14/20 08/14/20 18:59 06:59 18:59 Intake Total 1515.167 432.834 Output Total 1760 585 Balance -244.833 -152.166 Weight 90.718 kg 98.5 kg Intake: IV 130 0.9 30 Magnesium Sulfate-D5w Pmx 100 1 gm In Dextrose/Water 1 100ml.bag @ 100 mls/hr IVPB Q1H [facility] Rx#: [id number] Intake, IV Titration 565.167 202.834 Amount niCARdipine 20 mg In 565.167 202.834 Sodium Chloride 0.9% 192 ml @ 5 MG/HR 50 mls/hr IV .Q4H [facility] Rx#:[id number] Oral 950 100 Output: Urine 1260 585 Emesis 500 Other: Voiding Method Urinal Urinal # Voids 0 0 - Exam Gen: awake, alert HEENT: normocephalic, atraumatic, good hearing acuity, moist mucous membranes Resp: good air exchange, breathing comfortably with no accessory muscle use, diminished air exchange, posterior crackles CVS: good distal perfusion x 4, RRR, +S4, no murmurs GI: soft, NTTP, ND : no SPT, no CVAT, waldron catheter not present MSK: trace pitting edema, no clubbing Neuro: non-focal, moving all extremities Psych: cooperative, euthymic mood - Labs CBC & Chem 7: 08/14/20 03:52 08/14/20 03:52 Labs: Abnormal Lab Results - Last 24 Hours (Table) 08/13/20 08/13/20 08/13/20 Range/Units 15:44 15:44 15:44 WBC 14.5 H (3.8-10.6) k/uL Hgb 17.7 H (13.0-17.5) gm/dL MCHC 38.0 H (31.0-37.0) g/dL Neutrophils # 13.3 H (1.3-7.7) k/uL Lymphocytes # 0.7 L (1.0-4.8) k/uL D-Dimer 1.45 H (<0.60) mg/L FEU Carbon Dioxide (22-30) mmol/L Creatinine (0.66-1.25) mg/dL Glucose (74-99) mg/dL POC Glucose (mg/dL) (75-99) mg/dL Plasma Lactic Acid Andrea (0.7-2.0) mmol/L Total Bilirubin (0.2-1.3) mg/dL Alkaline Phosphatase (38-126) U/L Creatine Kinase (55-170) U/L Troponin I (0.000-0.034) ng/mL Total Protein (6.3-8.2) g/dL Triglycerides (<150) mg/dL Cholesterol (<200) mg/dL LDL Cholesterol, Calc (0-99) mg/dL Urine Protein 3+ H (Negative) Urine Glucose (UA) 4+ H (Negative) Urine Ketones Trace H (Negative) Urine Blood Large H (Negative) Ur Leukocyte Esterase (Negative) Urine RBC (0-5) /hpf Urine WBC (0-5) /hpf Urine Bacteria (None) /hpf Urine Mucus Rare H (None) /hpf 08/13/20 08/13/20 08/13/20 Range/Units 15:44 15:44 15:44 WBC (3.8-10.6) k/uL Hgb (13.0-17.5) gm/dL MCHC (31.0-37.0) g/dL Neutrophils # (1.3-7.7) k/uL Lymphocytes # (1.0-4.8) k/uL D-Dimer (<0.60) mg/L FEU Carbon Dioxide 19 L (22-30) mmol/L Creatinine 1.50 H (0.66-1.25) mg/dL Glucose 308 H (74-99) mg/dL POC Glucose (mg/dL) (75-99) mg/dL Plasma Lactic Acid Andrea 4.8 H* (0.7-2.0) mmol/L Total Bilirubin 1.4 H (0.2-1.3) mg/dL Alkaline Phosphatase 130 H (38-126) U/L Creatine Kinase 227 H (55-170) U/L Troponin I 0.105 H* (0.000-0.034) ng/mL Total Protein 9.0 H (6.3-8.2) g/dL Triglycerides (<150) mg/dL Cholesterol (<200) mg/dL LDL Cholesterol, Calc (0-99) mg/dL Urine Protein (Negative) Urine Glucose (UA) (Negative) Urine Ketones (Negative) Urine Blood (Negative) Ur Leukocyte Esterase (Negative) Urine RBC (0-5) /hpf Urine WBC (0-5) /hpf Urine Bacteria (None) /hpf Urine Mucus (None) /hpf 08/13/20 08/13/20 08/13/20 Range/Units 18:25 18:25 18:59 WBC (3.8-10.6) k/uL Hgb (13.0-17.5) gm/dL MCHC (31.0-37.0) g/dL Neutrophils # (1.3-7.7) k/uL Lymphocytes # (1.0-4.8) k/uL D-Dimer (<0.60) mg/L FEU Carbon Dioxide (22-30) mmol/L Creatinine (0.66-1.25) mg/dL Glucose (74-99) mg/dL POC Glucose (mg/dL) 246 H (75-99) mg/dL Plasma Lactic Acid Andrea 2.7 H* (0.7-2.0) mmol/L Total Bilirubin (0.2-1.3) mg/dL Alkaline Phosphatase (38-126) U/L Creatine Kinase (55-170) U/L Troponin I 0.123 H* (0.000-0.034) ng/mL Total Protein (6.3-8.2) g/dL Triglycerides (<150) mg/dL Cholesterol (<200) mg/dL LDL Cholesterol, Calc (0-99) mg/dL Urine Protein (Negative) Urine Glucose (UA) (Negative) Urine Ketones (Negative) Urine Blood (Negative) Ur Leukocyte Esterase (Negative) Urine RBC (0-5) /hpf Urine WBC (0-5) /hpf Urine Bacteria (None) /hpf Urine Mucus (None) /hpf 08/13/20 08/13/20 08/13/20 Range/Units 20:15 20:46 21:20 WBC (3.8-10.6) k/uL Hgb (13.0-17.5) gm/dL MCHC (31.0-37.0) g/dL Neutrophils # (1.3-7.7) k/uL Lymphocytes # (1.0-4.8) k/uL D-Dimer (<0.60) mg/L FEU Carbon Dioxide (22-30) mmol/L Creatinine (0.66-1.25) mg/dL Glucose (74-99) mg/dL POC Glucose (mg/dL) 228 H (75-99) mg/dL Plasma Lactic Acid Andrea (0.7-2.0) mmol/L Total Bilirubin (0.2-1.3) mg/dL Alkaline Phosphatase (38-126) U/L Creatine Kinase (55-170) U/L Troponin I 0.127 H* (0.000-0.034) ng/mL Total Protein (6.3-8.2) g/dL Triglycerides (<150) mg/dL Cholesterol (<200) mg/dL LDL Cholesterol, Calc (0-99) mg/dL Urine Protein 2+ H (Negative) Urine Glucose (UA) 3+ H (Negative) Urine Ketones (Negative) Urine Blood Moderate H (Negative) Ur Leukocyte Esterase Trace H (Negative) Urine RBC 13 H (0-5) /hpf Urine WBC 9 H (0-5) /hpf Urine Bacteria Rare H (None) /hpf Urine Mucus Rare H (None) /hpf 08/14/20 08/14/20 08/14/20 Range/Units 03:52 03:52 03:52 WBC 17.6 H (3.8-10.6) k/uL Hgb (13.0-17.5) gm/dL MCHC (31.0-37.0) g/dL Neutrophils # 15.3 H (1.3-7.7) k/uL Lymphocytes # (1.0-4.8) k/uL D-Dimer (<0.60) mg/L FEU Carbon Dioxide (22-30) mmol/L Creatinine 1.82 H (0.66-1.25) mg/dL Glucose 178 H (74-99) mg/dL POC Glucose (mg/dL) (75-99) mg/dL Plasma Lactic Acid Andrea (0.7-2.0) mmol/L Total Bilirubin (0.2-1.3) mg/dL Alkaline Phosphatase (38-126) U/L Creatine Kinase (55-170) U/L Troponin I 0.126 H* (0.000-0.034) ng/mL Total Protein (6.3-8.2) g/dL Triglycerides 161 H (<150) mg/dL Cholesterol 260 H (<200) mg/dL LDL Cholesterol, Calc 176 H (0-99) mg/dL Urine Protein (Negative) Urine Glucose (UA) (Negative) Urine Ketones (Negative) Urine Blood (Negative) Ur Leukocyte Esterase (Negative) Urine RBC (0-5) /hpf Urine WBC (0-5) /hpf Urine Bacteria (None) /hpf Urine Mucus (None) /hpf 08/14/20 08/14/20 Range/Units 07:03 11:13 WBC (3.8-10.6) k/uL Hgb (13.0-17.5) gm/dL MCHC (31.0-37.0) g/dL Neutrophils # (1.3-7.7) k/uL Lymphocytes # (1.0-4.8) k/uL D-Dimer (<0.60) mg/L FEU Carbon Dioxide (22-30) mmol/L Creatinine (0.66-1.25) mg/dL Glucose (74-99) mg/dL POC Glucose (mg/dL) 176 H 169 H (75-99) mg/dL Plasma Lactic Acid Andrea (0.7-2.0) mmol/L Total Bilirubin (0.2-1.3) mg/dL Alkaline Phosphatase (38-126) U/L Creatine Kinase (55-170) U/L Troponin I (0.000-0.034) ng/mL Total Protein (6.3-8.2) g/dL Triglycerides (<150) mg/dL Cholesterol (<200) mg/dL LDL Cholesterol, Calc (0-99) mg/dL Urine Protein (Negative) Urine Glucose (UA) (Negative) Urine Ketones (Negative) Urine Blood (Negative) Ur Leukocyte Esterase (Negative) Urine RBC (0-5) /hpf Urine WBC (0-5) /hpf Urine Bacteria (None) /hpf Urine Mucus (None) /hpf Assessment and Plan Assessment: 1. Hypertensive Emergency 2. Elevated Troponin secondary to #1 3. VANIA 4. Acute Heart Failure Exacerbation, unspecified 5. Hyperglycemia 6. Obesity I 7. Nicotine Abuse 69 year old man with obesity, nicotine abuse, who doesnt follow with a doctor presented with dyspnea, weakness, and intermittent chest pain and nausea and was found to have multiple metabolic abnormalities with concern for acute kidney failure and heart failure exacerbation in background of hypertensive emergency. Plan: - admit to telemetry, ICU - trend troponins - EKG PRN for chest pain - pulmonary consult for ICU management - cardiology consult, pending - Cardene gtt, wean as tolerated - amlodipine 5mg + metoprolol 25mg BID + imdur 30mg daily - hydralazine 25mg QID PRN for BP > 150/95 - I/Os, daily weights - lasix 20mg IV daily - echo, pending - A1c pending - aspart low dose SSI - Lipid panel = LDL 176, HDL 52 - started ASA 81mg daily - started atorvastatin 40mg qHS - TSH = 1.62 - f/u UA microscopy = 1 hyaline casts, 13 RBCs, 9 WBCs - weight loss counseling outpatient - nicotine patch if requested Full Code DVT PPx: heparin 5000U SQ
[2020-08-14] MEDS ORDERED: METOPROLOL TARTRATE 25 MG TAB PO STA (13:21)
[2020-08-14] MEDS ORDERED: amLODIPine 5 MG TAB PO STA (13:22)
--- NOTE | 2020-08-14 13:58 | US ---
EXAMINATION TYPE: US venous doppler duplex LE BI DATE OF EXAM: 08/14/2020 1:37 PM COMPARISON: NONE CLINICAL HISTORY: r/o DVT. Pulmonary embolism SIDE PERFORMED: Bilateral TECHNIQUE: The lower extremity deep venous system is examined utilizing real time linear array sonog joana with graded compression, doppler sonography and color-flow sonography. VESSELS IMAGED: Common Femoral Vein Deep Femoral Vein Greater Saphenous Vein * Femoral Vein Popliteal Vein Small Saphenous Vein * Proximal Calf Veins (* superficial vessels) Right Leg: Negative for DVT Left Leg: Negative for DVT IMPRESSION: No evidence of bilateral lower extremity DVT.
[2020-08-14] MEDS: NICOTINE 21MG/24HR PATCH TRANSDERM SCH (14:57)
[2020-08-14 15:29] LABS: Hemoglobin A1C 6.2 % (4.0-6.0)
[2020-08-14 17:04] LABS: Glucose,Whole Blood 176 mg/dL (75-99)
--- NOTE | 2020-08-14 18:23 | CONS ---
WHITNEY Silver is a 69-year-old gentleman with no significant past medical history who has never seen a physician, came into hospital with symptoms of lower extremity weakness, intermittent chest pain and shortness of breath. He had severely elevated blood pressures with systolic of 236 and diastolic of 155 and had evidence of renal insufficiency and there was 3+ proteinuria. The troponin was mildly elevated and BNP was elevated. EKG showed sinus tachycardia with changes of left ventricular hypertrophy. Cardiology has been consulted because of elevated troponin. At the time of my evaluation, patient appears comfortable at rest. Chest pain has resolved. Blood pressure is better controlled on nicardipine drip. The plan at this stage is to put him on amlodipine 10 mg daily, increase the dose of metoprolol to 50 b.i.d., taper and stop the IV medication and start hydralazine if necessary. I will obtain a 2D echo tomorrow to assess his LV function. The patient had elevated D-dimer and went on to have a CT scan of the chest that was negative for pulmonary embolism. BNP is elevated at 11,800. The cholesterol was 260 with an LDL of 176. TSH was normal. The patient has hypertensive heart disease and hypertensive emergency. The troponin elevation is related to severe uncontrolled hypertension. The BNP elevation is also probably related to the same. The patient could have acute diastolic heart failure. I expect him to get better once the blood pressures are better controlled. PAST MEDICAL HISTORY: Negative for hypertension, diabetes, dyslipidemia. MEDICATIONS: None. ALLERGIES: None. FAMILY HISTORY: Negative for premature coronary artery disease. SOCIAL HISTORY: Negative for current smoking, ETOH abuse or drug abuse. REVIEW OF SYSTEMS: HEENT: Unremarkable. CARDIAC: As described above. RESPIRATORY: Negative. GI: Negative. : Negative. ALLERGY/IMMUNOLOGY: Negative. SKIN: Negative. MUSCULOSKELETAL: Significant for arthritis. PSYCHOSOCIAL: Negative. ENDOCRINE: Negative. CONSTITUTIONAL: Negative. ONCOLOGICAL: Negative. Rest of the system review is not relevant. EXAM: Heart rate is 78 beats per minute, blood pressure is 145/97, respiratory rate is 18. Chest exam reveals good air entry bilaterally. Heart exam reveals first and second heart sounds. An S4 is heard. Abdomen is soft, nontender. Examination of the extremities did not reveal any edema. Peripheral pulses are felt. LABS: Show a hemoglobin of 16.6, platelet count is 219, potassium is 3.5, creatinine is elevated at 1.8. Troponins are elevated. ASSESSMENT: 1. Severe uncontrolled hypertension with hypertensive urgency. 2. Acute renal insufficiency, probably related to severe uncontrolled hypertension. 3. Elevated troponin related to hypertensive heart disease. 4. Acute diastolic heart failure. PLAN: I will obtain a 2D echo, optimize his blood pressure control and if he remains asymptomatic after discharge I will consider an outpatient stress test on him. [id number] / IJN: [id number] /
[2020-08-14 20:50] LABS: Glucose,Whole Blood 155 mg/dL (75-99)
[2020-08-14] MEDS: ATORVASTATIN 40 MG TAB PO SCH (22:14)
[2020-08-14] MEDS: METOPROLOL TARTRATE 50 MG TAB PO SCH (22:14)
[2020-08-15] MEDS: HEPARIN SODIUM,PORCINE 5,000 UNIT/ML 1 ML VIAL SQ SCH ×3 (00:32→17:48)
[2020-08-15 03:59] LABS: Basophils % (A) 0 %; Eosinophils # (A) 0.1 k/uL (0-0.7); Eosinophils % (A) 1 %; HCT 40.7 % (39.0-53.0); HGB 13.7 gm/dL (13.0-17.5); Lymphocytes # (A) 3.1 k/uL (1.0-4.8); Lymphocytes % (A) 21 %; MCH 29.7 pg (25.0-35.0); MCHC 33.7 g/dL (31.0-37.0); MCV 87.9 fL (80.0-100.0); Monocytes # (A) 0.8 k/uL (0-1.0); Monocytes % (A) 5 %; Neutrophils # (A) 10.5 k/uL (1.3-7.7); Neutrophils % (A) 72 %; Platelet Count 224 k/uL (150-450); RBC 4.63 m/uL (4.30-5.90); RDW 13.6 % (11.5-15.5); WBC 14.6 k/uL (3.8-10.6)
[2020-08-15 04:18] LABS: Calcium 8.9 mg/dL (8.4-10.2); Potassium 3.4 mmol/L (3.5-5.1)
[2020-08-15 07:00] LABS: Glucose,Whole Blood 151 mg/dL (75-99)
[2020-08-15] MEDS: INSULIN ASPART (NovoLOG) 100 UNIT/ML VIAL SQ SCH ×4 (07:12→21:04)
--- NOTE | 2020-08-15 08:31 | P.PN ---
Subjective Progress Note Date: 08/15/20 Principal diagnosis: Hypertension urgency This is a pleasant 69-year-old gentleman with no significant past medical history who was admitted to the hospital initially with a change in mental status and uncontrolled blood pressure. The patient was seen today August 152020. Unfortunately the pressure continues to be not well-controlled on the current medical regimen including Norvasc at 10 mg by mouth daily and isosorbide mononitrate 30 mg by mouth daily. He is also on metoprolol but the heart rate has been in the 60s. I'm going to increase the dose of isosorbide mononitrate to 60 mg by mouth daily and also add hydralazine at 25 mg by mouth 3 times a day to the current medical regimen. His urine output has been marginal and I advise obtaining a nephrology consult. He is also on Lasix at 20 mg by mouth daily. On examination he does have a systolic murmur and an echocardiogram is in process to be done Objective - Vital Signs Vital signs: Vital Signs Temp 97.5 F L 08/15/20 04:00 Pulse 75 08/15/20 07:00 Resp 14 08/15/20 07:00 BP 141/89 08/15/20 07:00 Pulse Ox 95 08/15/20 07:00 Intake & Output 08/14/20 08/15/20 08/15/20 18:59 06:59 18:59 Intake Total 555.834 440 Output Total 985 350 100 Balance -429.166 90 -100 Weight 96.6 kg Intake: IV 190 40 0.9 90 40 Magnesium Sulfate-D5w Pmx 100 1 gm In Dextrose/Water 1 100ml.bag @ 100 mls/hr IVPB Q1H [facility] Rx#: [id number] Intake, IV Titration 265.834 Amount niCARdipine 20 mg In 265.834 Sodium Chloride 0.9% 192 ml @ 5 MG/HR 50 mls/hr IV .Q4H [facility] Rx#:[id number] Oral 100 400 Output: Urine 985 350 100 Other: Voiding Method Urinal Urinal # Voids 0 0 - Constitutional General appearance: Present: no acute distress - Respiratory Respiratory: bilateral: diminished - Cardiovascular Rhythm: regular Heart sounds: normal: S1, S2 Abnormal Heart Sounds: Present: systolic murmur - Labs CBC & Chem 7: 08/15/20 03:33 08/15/20 03:33 Labs: Abnormal Lab Results - Last 24 Hours (Table) 08/14/20 08/14/20 08/14/20 Range/Units 03:52 11:13 17:03 WBC (3.8-10.6) k/uL Neutrophils # (1.3-7.7) k/uL Sodium (137-145) mmol/L Potassium (3.5-5.1) mmol/L BUN (9-20) mg/dL Creatinine (0.66-1.25) mg/dL Glucose (74-99) mg/dL POC Glucose (mg/dL) 169 H 176 H (75-99) mg/dL Hemoglobin A1c 6.2 H (4.0-6.0) % 08/14/20 08/15/20 08/15/20 Range/Units 20:48 03:33 03:33 WBC 14.6 H (3.8-10.6) k/uL Neutrophils # 10.5 H (1.3-7.7) k/uL Sodium 134 L (137-145) mmol/L Potassium 3.4 L (3.5-5.1) mmol/L BUN 26 H (9-20) mg/dL Creatinine 1.95 H (0.66-1.25) mg/dL Glucose 129 H (74-99) mg/dL POC Glucose (mg/dL) 155 H (75-99) mg/dL Hemoglobin A1c (4.0-6.0) % 08/15/20 Range/Units 06:59 WBC (3.8-10.6) k/uL Neutrophils # (1.3-7.7) k/uL Sodium (137-145) mmol/L Potassium (3.5-5.1) mmol/L BUN (9-20) mg/dL Creatinine (0.66-1.25) mg/dL Glucose (74-99) mg/dL POC Glucose (mg/dL) 151 H (75-99) mg/dL Hemoglobin A1c (4.0-6.0) % Microbiology - Last 24 Hours (Table) 08/13/20 16:38 Blood Culture - Preliminary Blood No Growth after 24 hours 08/13/20 16:38 Blood Culture - Preliminary Blood No Growth after 24 hours Assessment and Plan Assessment: Assessment #1 hypertension urgency #2 chronic renal failure #3 mildly increased troponin #4 multiple comorbid condition Plan #1 increase the dose of isosorbide mononitrate #2 start the patient on hydralazine by mouth #3 continue metoprolol and continue Lasix #4 consider switching the patient from metoprolol to Coreg if the pressure continues to be not well-controlled #5 follow-up on the echocardiogram
[2020-08-15] MEDS: FUROSEMIDE 10 MG/ML 2 ML VIAL IV SCH (08:41)
[2020-08-15] MEDS: ASPIRIN 81 MG PO SCH (08:42)
[2020-08-15] MEDS: METOPROLOL TARTRATE 50 MG TAB PO SCH ×2 (08:42→21:03)
[2020-08-15] MEDS: amLODIPine 10 MG TAB PO SCH (08:42)
[2020-08-15] MEDS: hydrALAZINE HCL 25 MG TAB PO SCH ×3 (08:42→21:03)
[2020-08-15] MEDS: ISOSORBIDE MONONITRATE ER 60 MG TAB.ER.24H PO SCH (08:42)
[2020-08-15] MEDS: NICOTINE 21MG/24HR PATCH TRANSDERM SCH (08:42)
--- NOTE | 2020-08-15 09:02 | XR ---
EXAMINATION TYPE: XR chest 1V portable DATE OF EXAM: 08/15/2020 COMPARISON: 08/14/2020 HISTORY: Pain FINDINGS: There are bilateral pleural effusions with cardiomegaly and bibasilar infiltrate. There is a diffuse interstitial pattern. Arthropathy of the shoulders. IMPRESSION: 1. Correlate for CHF otherwise consider pneumonia
[2020-08-15] MEDS ORDERED: FUROSEMIDE 10 MG/ML 10 ML VIAL IV STA (09:53)
[2020-08-15] MEDS ORDERED: FUROSEMIDE 10 MG/ML 4 ML VIAL IV STA (09:55)
--- NOTE | 2020-08-15 10:16 | P.PN ---
Subjective Progress Note Date: 08/15/20 No new complaints. Chest pain, headache, nausea, dyspnea have resolved. Improving strength. Objective - Vital Signs Vital signs: Vital Signs Temp 97.5 F L 08/15/20 04:00 Pulse 76 08/15/20 09:00 Resp 21 08/15/20 09:00 BP 162/102 08/15/20 09:00 Pulse Ox 95 08/15/20 09:00 Intake & Output 08/14/20 08/15/20 08/15/20 18:59 06:59 18:59 Intake Total 555.834 440 500 Output Total 985 350 200 Balance -429.166 90 300 Weight 96.6 kg Intake: IV 190 40 0.9 90 40 Magnesium Sulfate-D5w Pmx 100 1 gm In Dextrose/Water 1 100ml.bag @ 100 mls/hr IVPB Q1H [facility] Rx#: [id number] Intake, IV Titration 265.834 Amount niCARdipine 20 mg In 265.834 Sodium Chloride 0.9% 192 ml @ 5 MG/HR 50 mls/hr IV .Q4H [facility] Rx#:[id number] Oral 100 400 500 Output: Urine 985 350 200 Other: Voiding Method Urinal Urinal # Voids 0 0 - Exam Gen: awake, alert HEENT: normocephalic, atraumatic, good hearing acuity, moist mucous membranes Resp: good air exchange, breathing comfortably with no accessory muscle use, diminished air exchange, posterior crackles CVS: good distal perfusion x 4, RRR, +S4, no murmurs GI: soft, NTTP, ND : no SPT, no CVAT, waldron catheter not present MSK: trace pitting edema, no clubbing Neuro: non-focal, moving all extremities Psych: cooperative, euthymic mood - Labs CBC & Chem 7: 08/15/20 03:33 08/15/20 03:33 Labs: Abnormal Lab Results - Last 24 Hours (Table) 08/14/20 08/14/20 08/14/20 Range/Units 03:52 11:13 17:03 WBC (3.8-10.6) k/uL Neutrophils # (1.3-7.7) k/uL Sodium (137-145) mmol/L Potassium (3.5-5.1) mmol/L BUN (9-20) mg/dL Creatinine (0.66-1.25) mg/dL Glucose (74-99) mg/dL POC Glucose (mg/dL) 169 H 176 H (75-99) mg/dL Hemoglobin A1c 6.2 H (4.0-6.0) % 08/14/20 08/15/20 08/15/20 Range/Units 20:48 03:33 03:33 WBC 14.6 H (3.8-10.6) k/uL Neutrophils # 10.5 H (1.3-7.7) k/uL Sodium 134 L (137-145) mmol/L Potassium 3.4 L (3.5-5.1) mmol/L BUN 26 H (9-20) mg/dL Creatinine 1.95 H (0.66-1.25) mg/dL Glucose 129 H (74-99) mg/dL POC Glucose (mg/dL) 155 H (75-99) mg/dL Hemoglobin A1c (4.0-6.0) % 08/15/20 Range/Units 06:59 WBC (3.8-10.6) k/uL Neutrophils # (1.3-7.7) k/uL Sodium (137-145) mmol/L Potassium (3.5-5.1) mmol/L BUN (9-20) mg/dL Creatinine (0.66-1.25) mg/dL Glucose (74-99) mg/dL POC Glucose (mg/dL) 151 H (75-99) mg/dL Hemoglobin A1c (4.0-6.0) % Microbiology - Last 24 Hours (Table) 08/13/20 16:38 Blood Culture - Preliminary Blood No Growth after 24 hours 08/13/20 16:38 Blood Culture - Preliminary Blood No Growth after 24 hours Assessment and Plan Assessment: 1. Hypertensive Emergency 2. Elevated Troponin secondary to #1 3. VANIA 4. Acute Heart Failure Exacerbation, unspecified 5. Hyperglycemia 6. Obesity I 7. Nicotine Abuse 69 year old man with obesity, nicotine abuse, who doesnt follow with a doctor presented with dyspnea, weakness, and intermittent chest pain and nausea and was found to have multiple metabolic abnormalities with concern for acute kidney failure and heart failure exacerbation in background of hypertensive emergency. Plan: - admit to telemetry, ICU --> okay to be stepped down to floor - trend troponins - EKG PRN for chest pain - pulmonary consult for ICU management - cardiology consult, pending - Cardene gtt, wean as tolerated - amlodipine 10mg + metoprolol 50mg BID + imdur 60mg daily + hydralazine 25mg PO TID - hydralazine 25mg QID PRN for BP > 150/95 - I/Os, daily weights - lasix 20mg IV daily - echo, pending - A1c 6.2% - aspart low dose SSI - pre-DM + obesity = indication for metformin outpatient if kidney function recovers - Lipid panel = LDL 176, HDL 52 - started ASA 81mg daily - started atorvastatin 40mg qHS - TSH = 1.62 - f/u UA microscopy = 1 hyaline casts, 13 RBCs, 9 WBCs - weight loss counseling outpatient - nicotine patch if requested Full Code DVT PPx: heparin 5000U SQ
--- NOTE | 2020-08-15 10:23 | P.NPCON ---
History of Present Illness - Reason for Consult acute renal failure, accelerated hypertension - History of Present Illness Reason for consultation: Acute kidney injury and hypertension History of present illness: Patient is a 69-year-old male seen in renal consultation for acute kidney injury and hypertension. Patient presented to the hospital on 08/13/2020 with generalized weakness as well as shortness of breath. He was also having episodes of vomiting prior to admission. He was also having and headache as well as chest discomfort prior to admission. Patient's blood pressure was 236/155 initially in the ER. Patient states he had not seen a physician all his life. His brain CT revealed no acute abnormality. He also underwent CTA on 08/13/2020 which revealed no evidence of PE. Patient's creatinine was 1.5 on admission and is 1.95 today. Again no prior records available as he has never seen a physician. He does have long-standing history of diabetes mellitus. He denies any family history of renal disease but states several members in his family have been diabetics requiring amputations. His blood pressure has mostly been in the range of systolic 120s to 150s over the last 24 hours. He denies regular use of nonsteroidals. He is currently on 2 L nasal cannula. Hydralazine was added this morning by cardiology. No hematuria or dysuria. Vital signs are stable. General: The patient appeared well nourished and normally developed. HEENT: Head exam is unremarkable. Neck is without jugular venous distension. LUNGS: Breath sounds decreased. HEART: Rate and Rhythm are regular. ABDOMEN: Breast sounds decreased. EXTREMITITES: No edema. Past Medical History Past Medical History: No Reported History History of Any Multi-Drug Resistant Organisms: None Reported Past Surgical History: No Surgical Hx Reported Past Anesthesia/Blood Transfusion Reactions: No Reported Reaction Smoking Status: Current every day smoker, Heavy tobacco smoker - Past Family History Father Family Medical History: Diabetes Mellitus, Myocardial Infarction (PR) Additional Family Medical History / Comment(s): Had leg amputation Mother History Unknown: Yes Family Medical History: No Reported History Sister(s) Family Medical History: Diabetes Mellitus Additional Family Medical History / Comment(s): 1 sister had arm amputated due to diabetes Medications and Allergies Home Medications Medication Instructions Recorded Confirmed Type No Known Home Medications 08/13/20 08/13/20 History Allergies Allergy/AdvReac Type Severity Reaction Status Date / Time No Known Allergies Allergy Verified 08/13/20 17:13 Physical Exam Vitals: Vital Signs Temp Pulse Resp BP Pulse Ox 08/15/20 09:00 76 21 162/102 95 08/15/20 08:00 71 11 L 151/90 95 08/15/20 07:00 75 14 141/89 95 08/15/20 06:00 63 17 145/96 94 L 08/15/20 05:00 64 18 148/97 95 08/15/20 04:00 97.5 F L 66 15 147/91 94 L 08/15/20 03:00 72 20 123/79 94 L 08/15/20 02:00 67 20 130/91 92 L 08/15/20 01:00 60 19 132/86 95 08/15/20 00:00 97.8 F 64 17 161/101 97 08/14/20 23:00 73 20 153/103 94 L 08/14/20 22:00 80 16 155/102 95 08/14/20 21:00 76 23 138/92 94 L 08/14/20 20:00 97.9 F 78 20 131/86 95 08/14/20 19:00 75 18 149/92 94 L 08/14/20 18:00 75 19 143/97 96 08/14/20 17:00 80 15 95 08/14/20 16:15 71 17 142/101 96 08/14/20 16:00 98.3 F 76 18 147/98 95 08/14/20 15:45 75 14 97 08/14/20 15:30 73 16 147/98 97 08/14/20 15:15 74 16 128/96 96 08/14/20 15:00 73 18 142/95 96 08/14/20 14:45 75 24 138/96 94 L 08/14/20 14:30 74 15 138/95 96 08/14/20 14:15 80 11 L 141/119 95 08/14/20 14:00 82 21 141/101 96 08/14/20 13:45 80 20 143/97 96 08/14/20 13:30 80 24 149/99 97 08/14/20 13:15 79 19 144/95 96 08/14/20 13:00 81 16 145/97 95 08/14/20 12:45 79 14 144/92 95 08/14/20 12:30 80 19 142/95 94 L 08/14/20 12:15 78 19 139/103 94 L 08/14/20 12:00 99.8 F H 84 23 147/90 94 L 08/14/20 11:45 79 18 147/91 95 08/14/20 11:30 81 19 148/96 95 08/14/20 11:15 85 14 156/98 95 08/14/20 11:00 87 23 154/97 94 L 08/14/20 10:30 166/104 08/14/20 10:15 91 18 159/102 94 L 08/14/20 10:00 92 18 169/104 95 Intake and Output 08/14/20 08/15/20 08/15/20 22:59 06:59 14:59 Intake Total 112 400 500 Output Total 425 225 200 Balance -313 175 300 Intake: IV 80 0.9 80 Intake, IV Titration 32 Amount niCARdipine 20 mg In 32 Sodium Chloride 0.9% 192 ml @ 5 MG/HR 50 mls/hr IV .Q4H [facility] Rx#:[id number] Oral 400 500 Output: Urine 425 225 200 Other: Voiding Method Urinal Urinal # Voids 0 Weight 96.6 kg Results - Lab Results Most recent lab results Calcium 8.9 mg/dL (8.4-10.2) 08/15/20 03:33 Magnesium 2.2 mg/dL (1.6-2.3) 08/15/20 03:33 08/15/20 03:33 08/15/20 03:33 Assessment and Plan Plan: Assessment: 1. Acute kidney injury secondary to ATN secondary to hemodynamic instability as well as contrast-induced acute kidney injury. Patient received IV contrast dye for CT on 08/13/2020. Creatinine was 1.5 on admission and is 1.95 today. No prior records available. 2. Hypertensive urgency. Now better controlled. Hydralazine was added today. 3. Hypokalemia secondary to diuresis. 4. Mild volume overload. 5. Proteinuria. This is most likely secondary to the acute kidney injury and possibly underlying diabetic kidney disease. Rule out GN. Plan: Maintain current antihypertensives. Add hydralazine 10 mg IV every 4-6 hours as needed for systolic blood pressure greater than 160/90. Potassium being replaced. Follow-up echocardiogram. Check renal ultrasound. Check serologies. Quantify proteinuria. Avoid nephrotoxins. Continue to monitor renal function and urine output. Will benefit from STEPH inhibition once GFR stabilizes. Thank you for the consultation. I will continue to follow the patient with you during his hospital stay.
[2020-08-15] MEDS: POTASSIUM CHLORIDE ER 20 MEQ TAB.ER PO SCH ×2 (10:37→12:08)
[2020-08-15 12:00] LABS: Creatinine,Urine Random 58.3 mg/dL; Protein/Creatinine Ratio,Urine 0.823
[2020-08-15 12:02] LABS: Glucose,Whole Blood 125 mg/dL (75-99)
--- NOTE | 2020-08-15 14:53 | US ---
EXAMINATION TYPE: US kidneys/renal and bladder DATE OF EXAM: 08/15/2020 COMPARISON: NONE CLINICAL HISTORY: vania. VANIA EXAM MEASUREMENTS: Right Kidney: 12.5 x 6.0 x 5.1 cm Left Kidney: 10.3 x 5.5 x 4.5 cm Right Kidney: Indeterminate hypoechoic nodule upper pole= 0.6 cm/ Otherwise appeared wnl Left Kidney: Lobulated contour, otherwise appeared wnl Bladder: wnl Bilateral Jets seen: Yes No hydronephrosis or nephrolithiasis. IMPRESSION: 1. No hydronephrosis or nephrolithiasis. Hypoechoic nodule involving the upper pole the right kidney too small to characterize but statistically most likely related to a cyst.
--- NOTE | 2020-08-15 15:56 | P.PN ---
Subjective Progress Note Date: 08/15/20 Principal diagnosis: Hypertensive emergency This is a 69-year-old white male, no previous documented medical history, patient has not been seen by any physician for many years. Patient is on no medications. His was concerned because the patient has been generally weak and somewhat short of breath for the last 1 week. Patient had episodes of nausea and vomiting the day of admission. Patient has also been complaining of intermittent episodes of headaches. And he had 1 episode of chest pain a few hours before he arrived to the ER and it resolved on its own within a few minutes. He also had frequent urinations. Had no fever no chills, no cough, no wheezing. No syncopal episodes. No blurred vision. No dizziness. No melena no hematemesis. No bloody stools. Patient was brought into the ER by EMS because of the concern raised by his regarding his symptoms. And his blood sugar in the ambulance was 289. Blood pressure in the ER was 236/155. His BNP was 9110, and his troponin was a bit elevated. Chest x-ray showed no evidence of acute cardiopulmonary process. EKG was abnormal showing diffuse ST depressions. Considering his hypertensive emergency presentation, and multiple symptoms, patient was admitted to the ICU overnight, and he was placed on Cardene drip. Patient is yet to be seen by cardiology on consultation for his elevated troponin. I did recommend starting the patient on beta blockers and calcium channel blockers, and we'll try to discontinue Cardene sometime later today. CBC showed leukocytosis. WBC count 17.6. Otherwise the CBC was normal. BUN was noted to be 20 creatinine 1.82, consistent with acute kidney injury. N o base line creatinine available. Troponin was 0.127, follow-up troponin was 0.126. Patient was reevaluated today on 08/15/2020, patient is feeling better, blood pressure seems to be a bit better controlled, hydralazine was added by cardiology, he is now on metoprolol, Norvasc at 10 mg daily, and he seems to be very comfortable, blood pressure is 160 systolic. Denies any cough wheezing or shortness of breath, chest x-ray showed mild interstitial edema. BUN today is 26 creatinine is on the rise at 1.95, patient obviously developed acute kidney injury. Objective - Vital Signs Vital signs: Vital Signs Temp 97.6 F 08/15/20 12:00 Pulse 69 08/15/20 12:00 Resp 14 08/15/20 12:00 BP 115/84 08/15/20 12:00 Pulse Ox 96 08/15/20 12:00 Intake & Output 08/14/20 08/15/20 08/15/20 18:59 06:59 18:59 Intake Total 555.581 205 7523 Output Total 985 350 500 Balance -429.166 90 640 Weight 96.6 kg Intake: IV 190 40 0 0.9 90 40 0 Magnesium Sulfate-D5w Pmx 100 1 gm In Dextrose/Water 1 100ml.bag @ 100 mls/hr IVPB Q1H [facility] Rx#: [id number] Intake, IV Titration 265.834 Amount niCARdipine 20 mg In 265.834 Sodium Chloride 0.9% 192 ml @ 5 MG/HR 50 mls/hr IV .Q4H [facility] Rx#:[id number] Oral [id number] Output: Urine 985 350 500 Other: Voiding Method Urinal Urinal Urinal # Voids 0 0 1 # Bowel Movements 1 - Exam Physical Exam: Revealed 69-year-old white male in no distress. Head: Atraumatic, normocephalic. HEENT:[Neck is supple.] [No neck masses.] [No thyromegaly.] [No JVD.] Chest: [Clear throughout, no crackles, no rhonchi, no wheezes.] Cardiac Exam: [Normal S1 and S2, no S3 gallop, no murmur.] Abdomen: [Soft, nontender, no megaly, no rebound, no guarding, normal bowel sounds.] Extremities: [No clubbing, no edema, no cyanosis.] Neurological Exam: [No focal neurologic deficit.] Alert and oriented 3. Psychiatric: Normal mood, affect and normal mental status examination. Skin: No rashes. Musculoskeletal: No limitation in range of motion and no deformities. - Labs CBC & Chem 7: 08/15/20 03:33 08/15/20 03:33 Labs: Abnormal Lab Results - Last 24 Hours (Table) 08/14/20 08/14/20 08/15/20 Range/Units 17:03 20:48 03:33 WBC 14.6 H (3.8-10.6) k/uL Neutrophils # 10.5 H (1.3-7.7) k/uL Sodium (137-145) mmol/L Potassium (3.5-5.1) mmol/L BUN (9-20) mg/dL Creatinine (0.66-1.25) mg/dL Glucose (74-99) mg/dL POC Glucose (mg/dL) 176 H 155 H (75-99) mg/dL 08/15/20 08/15/20 08/15/20 Range/Units 03:33 06:59 12:01 WBC (3.8-10.6) k/uL Neutrophils # (1.3-7.7) k/uL Sodium 134 L (137-145) mmol/L Potassium 3.4 L (3.5-5.1) mmol/L BUN 26 H (9-20) mg/dL Creatinine 1.95 H (0.66-1.25) mg/dL Glucose 129 H (74-99) mg/dL POC Glucose (mg/dL) 151 H 125 H (75-99) mg/dL Microbiology - Last 24 Hours (Table) 08/13/20 16:38 Blood Culture - Preliminary Blood No Growth after 24 hours 08/13/20 16:38 Blood Culture - Preliminary Blood No Growth after 24 hours Assessment and Plan Assessment: Impression: hypertensive emergency. Acute diastolic congestive heart failure secondary to hypertensive emergency. Acute kidney injury secondary to hypertensive emergency. Type 2 diabetes is strongly suspected. Nicotine dependence syndrome. Suspect non-ST elevation myocardial infarction. Recommendation : adjust oral medications and maintain adequate blood pressure. Discontinue Cardene drip. Diurese the patient because of his abnormal chest x-ray today. Continue GI and DVT prophylaxis. Transfer patient out of the ICU to a monitored bed on selective. We'll continue to follow. Time with Patient: Less than 30
[2020-08-15 16:53] LABS: Glucose,Whole Blood 140 mg/dL (75-99)
--- NOTE | 2020-08-15 17:00 | ECHOF ---
Referral Reason:Elevated BNP, LE swelling MEASUREMENTS -------- HEIGHT: 172.7 cm WEIGHT: 96.2 kg BP: 141/89 IVSd: 1.8 cm (0.6 - 1.1) LVIDd: 4.1 cm (3.9 - 5.3) LVPWd: 1.6 cm (0.6 - 1.1) IVSs: 2.1 cm LVIDs: 2.8 cm LVPWs: 2.0 cm LA Diam: 3.8 cm (2.7 - 3.8) RVIDd: 3.0 cm (< 3.3) Ao Diam: 3.2 cm (2.0 - 3.7) AV Cusp: 1.9 cm (1.5 - 2.6) EPSS: 1.0 cm MV E Alexis: 1.28 m/s MV DecT: 165 ms MV A Alexis: 0.43 m/s MV E/A Ratio: 2.99 AV maxP.83 mmHg AV meanP.56 mmHg RAP: 5.00 mmHg RVSP: 34.94 mmHg MV EF SLOPE: 51.38 mm/s (70 - 150) MV EXCURSION: 14.58 mm (> 18.000) FINDINGS -------- Sinus rhythm. This was a technically difficult study with suboptimal apical views. The left ventricular size is normal. There is severe concentric left ventricular hypertrophy. Ove rall left ventricular systolic function is mildly impaired with, an EF between 45 - 50 %. Basal inf erior LV wall motion is hypokinetic. The right ventricle is normal in size. The left atrial size is normal. The right atrium is normal in size. 3 ml of Lumason was utilized for enhancement of images. Interatrial and interventricular septum intact. There is mild aortic valve sclerosis. There is mild aortic stenosis present. Peak/mean gradient a cross the Aortic Valve is 15.83mmHg / 8.56mmHg. Mild mitral annular calcification present. Mild tricuspid regurgitation present. There is mild pulmonary hypertension. The right ventricular systolic pressure, as measured by Doppler, is 34.94mmHg. Trace/mild (physiologic) pulmonic regurgitation. The aortic root size is normal. Normal inferior vena cava with normal inspiratory collapse consistent with estimated right atrial pre ssure of 5 mmHg. There is no pericardial effusion. CONCLUSIONS -------- 1. The left ventricular size is normal. 2. There is severe concentric left ventricular hypertrophy. 3. Overall left ventricular systolic function is mildly impaired with, an EF between 45 - 50 %. 4. Basal inferior LV wall motion is hypokinetic. 5. 3 ml of Lumason was utilized for enhancement of images. 6. There is mild aortic valve sclerosis. 7. There is mild aortic stenosis present. 8. Peak/mean gradient across the Aortic Valve is 15.83mmHg / 8.56mmHg. 9. Mild mitral annular calcification present. 10. Mild tricuspid regurgitation present. 11. There is mild pulmonary hypertension. 12. The right ventricular systolic pressure, as measured by Doppler, is 34.94mmHg. 13. Trace/mild (physiologic) pulmonic regurgitation. 14. There is no pericardial effusion. [employer]IOPE PLAYER: Mara Mullen RDCS
[2020-08-15 20:58] LABS: Glucose,Whole Blood 172 mg/dL (75-99)
[2020-08-15] MEDS: ATORVASTATIN 40 MG TAB PO SCH (21:03)
[2020-08-15 22:48] LABS: Protein, Total 6.1 g/dL (6.2-8.2)
[2020-08-16] MEDS: HEPARIN SODIUM,PORCINE 5,000 UNIT/ML 1 ML VIAL SQ SCH ×4 (01:31→23:18)
[2020-08-16 02:10] LABS: Anti-DNA, DS unit <1.0 IU/mL; DNA Double-Stranded NEGATIVE (NEGATIVE)
[2020-08-16 02:11] LABS: Hepatitis A Antibody IgM Non-Reactive (Non-Reactive); Hepatitis B Core IgM Non-Reactive (Non-Reactive); Hepatitis B Surface Antigen Non-Reactive (Non-Reactive); Hepatitis C IgG Antibody Non-Reactive (Non-Reactive)
[2020-08-16] MEDS: INSULIN ASPART (NovoLOG) 100 UNIT/ML VIAL SQ SCH ×4 (06:14→21:07)
[2020-08-16 06:15] LABS: Glucose,Whole Blood 130 mg/dL (75-99)
[2020-08-16] MEDS: amLODIPine 10 MG TAB PO SCH (09:05)
[2020-08-16] MEDS: ASPIRIN 81 MG PO SCH (09:05)
[2020-08-16] MEDS: METOPROLOL TARTRATE 50 MG TAB PO SCH ×2 (09:05→19:57)
[2020-08-16] MEDS: ISOSORBIDE MONONITRATE ER 60 MG TAB.ER.24H PO SCH (09:05)
[2020-08-16] MEDS: hydrALAZINE HCL 25 MG TAB PO SCH (09:05)
[2020-08-16] MEDS: NICOTINE 21MG/24HR PATCH TRANSDERM SCH ×2 (09:05→09:12)
[2020-08-16] MEDS: FUROSEMIDE 10 MG/ML 2 ML VIAL IV SCH (09:06)
[2020-08-16 11:08] LABS: Potassium 3.4 mmol/L (3.5-5.1)
--- NOTE | 2020-08-16 11:35 | P.PN ---
Subjective Progress Note Date: 08/16/20 No new complaints. Pt was off of oxygen when I spoke with him. He feels more energetic, has more strength in his legs. Symptoms have resolved, BPs are still elevated. Objective - Vital Signs Vital signs: Vital Signs Temp 97.4 F L 08/16/20 08:50 Pulse 78 08/16/20 08:50 Resp 16 08/16/20 08:50 BP 168/95 08/16/20 08:50 Pulse Ox 96 08/16/20 08:50 Intake & Output 08/15/20 08/16/20 08/16/20 18:59 06:59 18:59 Intake Total 1380 540 Output Total 650 700 Balance 730 -700 540 Weight 98.2 kg Intake: IV 0 0.9 0 Oral 1380 540 Output: Urine 650 700 Other: Voiding Method Urinal Urinal # Voids 1 # Bowel Movements 1 - Exam Gen: awake, alert HEENT: normocephalic, atraumatic, good hearing acuity, moist mucous membranes Resp: good air exchange, breathing comfortably with no accessory muscle use, diminished air exchange, posterior crackles CVS: good distal perfusion x 4, RRR, +S4, no murmurs GI: soft, NTTP, ND : no SPT, no CVAT, waldron catheter not present MSK: trace pitting edema, no clubbing Neuro: non-focal, moving all extremities Psych: cooperative, euthymic mood - Labs CBC & Chem 7: 08/15/20 03:33 08/16/20 10:06 Labs: Abnormal Lab Results - Last 24 Hours (Table) 08/15/20 08/15/20 08/15/20 Range/Units 11:56 12:01 16:52 Sodium (137-145) mmol/L Potassium (3.5-5.1) mmol/L BUN (9-20) mg/dL Creatinine (0.66-1.25) mg/dL Glucose (74-99) mg/dL POC Glucose (mg/dL) 125 H 140 H (75-99) mg/dL Total Protein (PEP) 6.1 L (6.2-8.2) g/dL 08/15/20 08/16/20 08/16/20 Range/Units 20:57 06:13 10:06 Sodium 135 L (137-145) mmol/L Potassium 3.4 L (3.5-5.1) mmol/L BUN 33 H (9-20) mg/dL Creatinine 1.81 H (0.66-1.25) mg/dL Glucose 159 H (74-99) mg/dL POC Glucose (mg/dL) 172 H 130 H (75-99) mg/dL Total Protein (PEP) (6.2-8.2) g/dL Microbiology - Last 24 Hours (Table) 08/13/20 16:38 Blood Culture - Preliminary Blood No Growth after 48 hours 08/13/20 16:38 Blood Culture - Preliminary Blood No Growth after 48 hours Assessment and Plan Assessment: 1. Hypertensive Emergency 2. Elevated Troponin secondary to #1 3. VANIA 4. Acute Heart Failure Exacerbation, unspecified 5. Hyperglycemia 6. Obesity I 7. Nicotine Abuse 69 year old man with obesity, nicotine abuse, who doesnt follow with a doctor presented with dyspnea, weakness, and intermittent chest pain and nausea and was found to have multiple metabolic abnormalities with concern for acute kidney failure and heart failure exacerbation in background of hypertensive emergency. Plan: - admit to telemetry, ICU --> stepped down to floor on 08/15 - trend troponins, 0.127-->0.126 - EKG PRN for chest pain - pulmonary consult for ICU management - cardiology consult, appreciate recs - Santiago gtt, off-titrated on 08/15 - amlodipine 10mg + metoprolol 50mg BID + imdur 60mg daily + hydralazine 50mg PO TID - options for BP med escalation include: - changing amlodipine to 90mg nifedipine - changing metoprolol to carvedilol - waiting for stabilization of kidney function before adding losartan - I/Os, daily weights - lasix 20mg IV daily - echo, shows EF 45-50%, basal inferior WMA, mildly elevated RVSP - patient will require LHC for ischemic workup: inpt vs outpt, defer to cardiology - nephrology consulted, appreciate recs - UA microscopy = 1 hyaline casts, 13 RBCs, 9 WBCs - urine protein:creatinine = 48:58 = 0.8 - C3/C4/CH50, pending - SPEP/UPEP with IFA, pending - ANCA, pending - Risk Factor Evaluation - A1c 6.2% - aspart low dose SSI - pre-DM + obesity = indication for metformin outpatient if kidney function recovers - Lipid panel = LDL 176, HDL 52 - started ASA 81mg daily - started atorvastatin 40mg qHS - TSH = 1.62 - weight loss counseling outpatient - nicotine patch 21mg/24hr Full Code DVT PPx: heparin 5000U SQ
[2020-08-16 11:39] LABS: Glucose,Whole Blood 139 mg/dL (75-99)
[2020-08-16] MEDS ORDERED: POTASSIUM CHLORIDE ER 20 MEQ TAB.ER PO STA (12:16)
--- NOTE | 2020-08-16 13:36 | P.PN ---
Subjective Progress Note Date: 08/16/20 HISTORY OF PRESENT ILLNESS: Patient examined this morning at the bedside. He denies chest pain or pressure. Denies shortness of breath. Echocardiogram completed reveals ejection fraction 45-50% with basal inferior LV wall hypokinesis. Patient's blood pressure remains elevated this morning at 168/95. PHYSICAL EXAM: VITAL SIGNS: Reviewed. GENERAL: Well-developed in no acute distress. NECK: Supple. No JVD or thyromegaly LUNGS: Respirations even and unlabored. Lungs diminished bilaterally. HEART: Regular rate and rhythm. S1 and S2 heard. Systolic murmur noted. EXTREMITIES: Normal range of motion. No clubbing or cyanosis. Peripheral pulses intact. trace bilateral lower extremity edema ASSESSMENT: Hypertensive urgency Acute kidney injury Acute systolic heart failure, EF 45% Cardiomyopathy, EF 45%, unclear if ischemic or nonischemic at this time Nicotine dependence PLAN: Continue current cardiac medications Increase hydralazine to 50 mg 3 times a day Patient will require heart catheterization in the future when he is medically stable. Still to be determined if this will be completed and inpatient or outpatient. Further recommendations pending patient course Nurse practitioner note has been reviewed by physician. Signing provider agrees with the documented findings, assessment, and plan of care. Objective - Vital Signs Vital signs: Vital Signs Temp 97.4 F L 08/16/20 08:50 Pulse 68 08/16/20 12:19 Resp 16 08/16/20 12:19 BP 150/89 08/16/20 12:19 Pulse Ox 97 08/16/20 12:19 Intake & Output 08/15/20 08/16/20 08/16/20 18:59 06:59 18:59 Intake Total 1380 540 Output Total 650 700 800 Balance 730 -700 -260 Weight 98.2 kg Intake: IV 0 0.9 0 Oral 1380 540 Output: Urine 650 700 800 Other: Voiding Method Urinal Urinal Urinal # Voids 1 # Bowel Movements 1 - Labs CBC & Chem 7: 08/15/20 03:33 08/16/20 10:06 Labs: Abnormal Lab Results - Last 24 Hours (Table) 08/15/20 08/15/20 08/15/20 Range/Units 11:56 16:52 20:57 Sodium (137-145) mmol/L Potassium (3.5-5.1) mmol/L BUN (9-20) mg/dL Creatinine (0.66-1.25) mg/dL Glucose (74-99) mg/dL POC Glucose (mg/dL) 140 H 172 H (75-99) mg/dL Total Protein (PEP) 6.1 L (6.2-8.2) g/dL 08/16/20 08/16/20 08/16/20 Range/Units 06:13 10:06 11:36 Sodium 135 L (137-145) mmol/L Potassium 3.4 L (3.5-5.1) mmol/L BUN 33 H (9-20) mg/dL Creatinine 1.81 H (0.66-1.25) mg/dL Glucose 159 H (74-99) mg/dL POC Glucose (mg/dL) 130 H 139 H (75-99) mg/dL Total Protein (PEP) (6.2-8.2) g/dL Microbiology - Last 24 Hours (Table) 08/13/20 16:38 Blood Culture - Preliminary Blood No Growth after 48 hours 08/13/20 16:38 Blood Culture - Preliminary Blood No Growth after 48 hours
--- NOTE | 2020-08-16 13:46 | P.PN ---
Subjective Patient is seen in follow-up for acute kidney injury and hypertension. Renal function stable. No edema. Good urine output. Blood pressure 150/89 this afternoon. No chest pain or shortness of breath. Currently on room air. Vital signs are stable. General: The patient appeared well nourished and normally developed. HEENT: Head exam is unremarkable. Neck is without jugular venous distension. LUNGS: Breath sounds decreased. HEART: Rate and Rhythm are regular. ABDOMEN: Soft, nontender. EXTREMITITES: No edema. Objective - Vital Signs Vital signs: Vital Signs Temp 97.4 F L 08/16/20 08:50 Pulse 68 08/16/20 12:19 Resp 16 08/16/20 12:19 BP 150/89 08/16/20 12:19 Pulse Ox 97 08/16/20 12:19 Intake & Output 08/15/20 08/16/20 08/16/20 18:59 06:59 18:59 Intake Total 1380 540 Output Total 650 700 800 Balance 730 -700 -260 Weight 98.2 kg Intake: IV 0 0.9 0 Oral 1380 540 Output: Urine 650 700 800 Other: Voiding Method Urinal Urinal Urinal # Voids 1 # Bowel Movements 1 - Labs CBC & Chem 7: 08/15/20 03:33 08/16/20 10:06 Labs: Abnormal Lab Results - Last 24 Hours (Table) 08/15/20 08/15/20 08/15/20 Range/Units 11:56 16:52 20:57 Sodium (137-145) mmol/L Potassium (3.5-5.1) mmol/L BUN (9-20) mg/dL Creatinine (0.66-1.25) mg/dL Glucose (74-99) mg/dL POC Glucose (mg/dL) 140 H 172 H (75-99) mg/dL Total Protein (PEP) 6.1 L (6.2-8.2) g/dL 08/16/20 08/16/20 08/16/20 Range/Units 06:13 10:06 11:36 Sodium 135 L (137-145) mmol/L Potassium 3.4 L (3.5-5.1) mmol/L BUN 33 H (9-20) mg/dL Creatinine 1.81 H (0.66-1.25) mg/dL Glucose 159 H (74-99) mg/dL POC Glucose (mg/dL) 130 H 139 H (75-99) mg/dL Total Protein (PEP) (6.2-8.2) g/dL Microbiology - Last 24 Hours (Table) 08/13/20 16:38 Blood Culture - Preliminary Blood No Growth after 48 hours 08/13/20 16:38 Blood Culture - Preliminary Blood No Growth after 48 hours Assessment and Plan Plan: Assessment: 1. Acute kidney injury secondary to ATN secondary to hemodynamic instability as well as contrast-induced acute kidney injury. Patient received IV contrast dye for CT on 08/13/2020. Creatinine was 1.5 on admission and is stable at 1.81 today. No prior records available. No hydronephrosis noted on kidney ultrasound. 2. Hypertensive urgency. Stable. 3. Hypokalemia secondary to diuresis. 4. Mild volume overload. 5. Proteinuria. UPC 0.8 g. This is most likely secondary to the acute kidney injury and possibly underlying diabetic kidney disease. Rule out GN. 6. Acute systolic CHF with ejection fraction of 45-50%. Plan: Maintain current antihypertensives. Hydralazine dose was increased today. Potassium being replaced. Follow-up serologies. Negative so far. Avoid nephrotoxins. Continue to monitor renal function and urine output. Will benefit from STEPH inhibition once GFR stabilizes. I will change Lasix to oral torsemide 20 mg once daily starting tomorrow.
[2020-08-16 14:03] LABS: C-ANCA <1:20 Titer (<1:20)
[2020-08-16] MEDS: hydrALAZINE HCL 50 MG TAB PO SCH ×2 (16:51→19:57)
[2020-08-16 17:10] LABS: Glucose,Whole Blood 143 mg/dL (75-99)
[2020-08-16] MEDS: ATORVASTATIN 40 MG TAB PO SCH (19:57)
[2020-08-16 20:54] LABS: Glucose,Whole Blood 149 mg/dL (75-99)
[2020-08-17 05:01] VITALS: PULSE 74
[2020-08-17 05:47] LABS: Glucose,Whole Blood 136 mg/dL (75-99)
[2020-08-17] MEDS: INSULIN ASPART (NovoLOG) 100 UNIT/ML VIAL SQ SCH ×2 (06:23→12:34)
[2020-08-17 08:41] LABS: Calcium 9.2 mg/dL (8.4-10.2); Potassium 3.8 mmol/L (3.5-5.1)
[2020-08-17 08:58] VITALS: BP 149/93; RESP 16; TEMP 97.6
[2020-08-17] MEDS: METOPROLOL TARTRATE 50 MG TAB PO SCH (08:59)
[2020-08-17] MEDS: ISOSORBIDE MONONITRATE ER 60 MG TAB.ER.24H PO SCH (08:59)
[2020-08-17] MEDS: hydrALAZINE HCL 50 MG TAB PO SCH (08:59)
[2020-08-17] MEDS: amLODIPine 10 MG TAB PO SCH (08:59)
[2020-08-17] MEDS: ASPIRIN 81 MG PO SCH (08:59)
--- NOTE | 2020-08-17 08:59 | P.DS ---
Providers Date of admission: 08/13/20 17:35 Expected date of discharge: 08/17/20 Attending physician: Paulino Vanegas MD Consults: 08/13/20 18:08 Consult Physician Urgent Consulting Provider: Mary Melton Consult Reason/Comments: Hypertensive urgency Do you want consulting provider notified?: Already Contacted 08/14/20 00:25 Consult Physician Routine Consulting Provider: [facility] Consult Reason/Comments: Positive troponins & HTN Crisis Do you want consulting provider notified?: Yes, Notify in am 08/15/20 07:41 Consult Physician Routine Consulting Provider: Ericka Sheehan Consult Reason/Comments: acute renal insufficiency Do you want consulting provider notified?: Yes Primary care physician: Stated None Hospital Course: Discharge Diagnosis: Hypertensive urgency Acute exacerbation of systolic congestive heart failure with ejection fraction 45%, cardiomyopathy Acute kidney injury secondary to ATN as well as contrast-induced acute kidney injury. Chronic kidney disease not ruled out. Nicotine dependence Elevated troponin without evidence of acute coronary syndrome Prediabetes A 1C 6.2 Obesity with BMI 32.2 Hospital Course: Patient is a 69-year-old male with obesity, tobacco abuse, and no other medical history who does not regularly see doctors and presented to the emergency department secondary to intermittent chest pain, dyspnea, and lower extremity weakness. In the ER he was noted to be hypertensive with a blood pressure of 236/155. He was noted to have a mild leukocytosis of 14.5, d-dimer 4.45, and a creatinine of 1.5. Lactic acid was elevated at 4.8 and glucose was 308. BNP was elevated at 9110 and troponin was elevated at 0.105. Chest x-ray was without acute pathology. EKG showed diffuse ST segment depression with left ventricular hypertrophy. He was subsequently admitted to ICU and placed on a Cardene drip. Cardiology was consulted. He was started on Norvasc, hydralazine, aspirin, Lipitor, Lopressor, Imdur, Demadex. He had a slow improvement in his symptoms. His blood pressure began to improve. He was also followed by nephrology who felt this could be acute kidney injury versus chronic kidney disease. His renal function continued to improve. He was subsequently determined stable for discharge home. He was given explicit instructions to check his weight daily and may come off, take his medications as prescribed, and reduce his salt intake. He will also have home care. He will establish with Dr. Bro for primary care physician. We will also establish with Dr. Hillman for cardiology in the outpatient setting. Ideally once this has been established he should follow with nephrology in the outpatient setting. He was not started on an KARIS inhibitor or an arm secondary to his renal dysfunction. Imaging: CT head: No acute intracranial abnormality, old left lacunar infarct CT of the chest: No acute PE, trace bilateral pleural effusions CT head: Degenerative and remote ischemic changes Lower extremity venous Doppler: Negative for DVT bilateral Echocardiogram: Ejection fraction 45-50%, LV hypokinetic, mild pulmonary hype rtension Abdominal ultrasound: No hydronephrosis or nephrolithiasis, hypoechoic nodule too small to characterize but most likely related to cyst Patient seen and examined at bedside. He denies any chest pain, shortness breath, nausea, or vomiting. We went over her ex-explicit discharge instructions and the importance of staying away from salt, taking all medications as prescribed, and weighing himself daily with instructions on when to notify cardiology. All questions answered. Vital signs reviewed and stable. General: non toxic, no distress, appears at stated age Derm: warm, dry Head: atraumatic, normocephalic, symmetric Eyes: EOMI, no lid lag, anicteric sclera Mouth: no lip lesion, mucus membranes moist Cardiovascular: S1S2 reg, no murmur, positive posterior tibial pulse bilateral, Lungs: Decreased breath sounds bilateral, no rhonchi, no rales , no accessory muscle use Abdominal: soft, nontender to palpation, no guarding, no appreciable organomegaly Ext: no gross muscle atrophy, trace edema, no contractures Neuro: CN II-XI grossly intact, no focal neuro deficits Psych: Alert, oriented, appropriate affect A total of 35 minutes of time were spent preparing this complex discharge summary . Patient Condition at Discharge: Stable Plan - Discharge Summary Discharge Rx Participant: Yes New Discharge Prescriptions: New hydrALAZINE HCL [Apresoline] 50 mg PO TID #90 tab Aspirin 81 mg PO DAILY #30 chew Torsemide [Demadex] 20 mg PO DAILY #30 tab Isosorbide Mononitrate ER [Imdur] 60 mg PO DAILY #30 tab.er.24h Atorvastatin [Lipitor] 40 mg PO HS #30 tab Metoprolol Tartrate [Lopressor] 50 mg PO BID #60 tab amLODIPine [Norvasc] 10 mg PO DAILY #30 tab Discharge Medication List Aspirin 81 mg PO DAILY #30 chew 08/17/20 [Rx] Atorvastatin [Lipitor] 40 mg PO HS #30 tab 08/17/20 [Rx] Isosorbide Mononitrate ER [Imdur] 60 mg PO DAILY #30 tab.er.24h 08/17/20 [Rx] Metoprolol Tartrate [Lopressor] 50 mg PO BID #60 tab 08/17/20 [Rx] Torsemide [Demadex] 20 mg PO DAILY #30 tab 08/17/20 [Rx] amLODIPine [Norvasc] 10 mg PO DAILY #30 tab 08/17/20 [Rx] hydrALAZINE HCL [Apresoline] 50 mg PO TID #90 tab 08/17/20 [Rx] Follow up Appointment(s)/Referral(s): Royer Hillman MD [STAFF PHYSICIAN] - 10 Days (office will call you with your appointment date and time) [facility], [NON-STAFF] - Martir Bro [STAFF PHYSICIAN] - 08/23/20 9:30 am (New PCP appointment also) Patient Instructions/Handouts: Heart Failure (DC), Seasoning Without Salt (DC), Low-Sodium Diet (DC) Activity/Diet/Wound Care/Special Instructions: Activity: as tolerated Diet: low salt, heart healthy Special Instructions: Take your weight every morning and make a list of the date and weight, call cardiology (Dr. Hillman) if you gain more than 3 pounds in 1 day or more than 5 pounds in 3 days Take all medications as prescribed Discharge Disposition: HOME SELF-CARE
[2020-08-17] MEDS ORDERED: TORSEMIDE 20 MG TAB PO SCH (09:00)
[2020-08-17] MEDS: NICOTINE 21MG/24HR PATCH TRANSDERM SCH (09:03)
[2020-08-17] MEDS: HEPARIN SODIUM,PORCINE 5,000 UNIT/ML 1 ML VIAL SQ SCH (09:03)
--- NOTE | 2020-08-17 09:54 | P.PN ---
Subjective Patient is seen in follow-up for acute kidney injury and hypertension. Renal function stable. No edema. Good urine output. Blood pressure fairly stable. No chest pain or shortness of breath. Currently on room air. Vital signs are stable. General: The patient appeared well nourished and normally developed. HEENT: Head exam is unremarkable. Neck is without jugular venous distension. LUNGS: Breath sounds decreased. HEART: Rate and Rhythm are regular. ABDOMEN: Soft, nontender. EXTREMITITES: No edema. Objective - Vital Signs Vital signs: Vital Signs Temp 97.6 F 08/17/20 08:56 Pulse 74 08/17/20 08:56 Resp 16 08/17/20 08:56 BP 149/93 08/17/20 08:56 Pulse Ox 98 08/17/20 08:56 Intake & Output 08/16/20 08/17/20 08/17/20 18:59 06:59 18:59 Intake Total 780 480 Output Total 1125 700 Balance -345 -220 Weight 96.2 kg Intake: Oral 780 480 Output: Urine 1125 700 Other: Voiding Method Urinal Urinal # Voids 3 - Labs CBC & Chem 7: 08/15/20 03:33 08/17/20 07:45 Labs: Abnormal Lab Results - Last 24 Hours (Table) 08/16/20 08/16/20 08/16/20 Range/Units 10:06 11:36 17:08 Sodium 135 L (137-145) mmol/L Potassium 3.4 L (3.5-5.1) mmol/L BUN 33 H (9-20) mg/dL Creatinine 1.81 H (0.66-1.25) mg/dL Glucose 159 H (74-99) mg/dL POC Glucose (mg/dL) 139 H 143 H (75-99) mg/dL 08/16/20 08/17/20 08/17/20 Range/Units 20:51 05:45 07:45 Sodium 135 L (137-145) mmol/L Potassium (3.5-5.1) mmol/L BUN 28 H (9-20) mg/dL Creatinine 1.69 H (0.66-1.25) mg/dL Glucose 160 H (74-99) mg/dL POC Glucose (mg/dL) 149 H 136 H (75-99) mg/dL Microbiology - Last 24 Hours (Table) 08/13/20 16:38 Blood Culture - Preliminary Blood No Growth after 72 hours 08/13/20 16:38 Blood Culture - Preliminary Blood No Growth after 72 hours Assessment and Plan Plan: Assessment: 1. Acute kidney injury secondary to ATN secondary to hemodynamic instability as well as contrast-induced acute kidney injury. Patient received IV contrast dye for CT on 08/13/2020. Creatinine was 1.5 on admission and is stable at 1.69 today. No prior records available. No hydronephrosis noted on kidney ultrasound. 2. Hypertensive urgency. Stable. 3. Hypokalemia secondary to diuresis. Status post placement. Better. 4. Mild volume overload. Maintained on oral 5. Proteinuria. UPC 0.8 g. This is most likely secondary to the acute kidney injury and possibly underlying diabetic kidney disease. Rule out GN. 6. Acute systolic CHF with ejection fraction of 45-50%. Plan: Increase hydralazine to 75 mg 3 times daily. Follow-up serologies. Negative so far. Avoid nephrotoxins. Continue to monitor renal function and urine output. Will benefit from STEPH inhibition once GFR stabilizes. Patient was advised to follow a low-salt diet and 40-45 oz fluid restriction per day. He was also advised to weigh himself daily and to call if edema worsens his gains more than 3 pounds.
--- NOTE | 2020-08-17 09:56 | P.PN ---
Subjective Progress Note Date: 08/17/20 Principal diagnosis: Hypertension urgency This is a very pleasant 69-year-old gentleman who was admitted to the hospital was hypertension urgency and he was found to have cardiomyopathy. The patient was seen this morning. He is asymptomatic from a cardiac vascular standpoint of view. The blood pressure seems to be much better. The patient requested to go home. The echocardiogram showed cardiomyopathy and he to have a heart catheterization but he would rather have it done as an outpatient. The patient can be discharged home. Objective - Vital Signs Vital signs: Vital Signs Temp 97.6 F 08/17/20 08:56 Pulse 74 08/17/20 08:56 Resp 16 08/17/20 08:56 BP 149/93 08/17/20 08:56 Pulse Ox 98 08/17/20 08:56 Intake & Output 08/16/20 08/17/20 08/17/20 18:59 06:59 18:59 Intake Total 780 480 Output Total 1125 700 Balance -345 -220 Weight 96.2 kg Intake: Oral 780 480 Output: Urine 1125 700 Other: Voiding Method Urinal Urinal # Voids 3 - Constitutional General appearance: Present: no acute distress - Respiratory Respiratory: bilateral: CTA - Cardiovascular Rhythm: regular Heart sounds: normal: S1, S2 - Labs CBC & Chem 7: 08/15/20 03:33 08/17/20 07:45 Labs: Abnormal Lab Results - Last 24 Hours (Table) 08/16/20 08/16/20 08/16/20 Range/Units 10:06 11:36 17:08 Sodium 135 L (137-145) mmol/L Potassium 3.4 L (3.5-5.1) mmol/L BUN 33 H (9-20) mg/dL Creatinine 1.81 H (0.66-1.25) mg/dL Glucose 159 H (74-99) mg/dL POC Glucose (mg/dL) 139 H 143 H (75-99) mg/dL 08/16/20 08/17/20 08/17/20 Range/Units 20:51 05:45 07:45 Sodium 135 L (137-145) mmol/L Potassium (3.5-5.1) mmol/L BUN 28 H (9-20) mg/dL Creatinine 1.69 H (0.66-1.25) mg/dL Glucose 160 H (74-99) mg/dL POC Glucose (mg/dL) 149 H 136 H (75-99) mg/dL Microbiology - Last 24 Hours (Table) 08/13/20 16:38 Blood Culture - Preliminary Blood No Growth after 72 hours 08/13/20 16:38 Blood Culture - Preliminary Blood No Growth after 72 hours Assessment and Plan Assessment: Assessment #1 hypertension urgency #2 chronic renal failure #3 mildly increased troponin #4 cardiomyopathy Plan #1 continue the current medical regimen #2 the patient can be discharged home
[2020-08-17 14:08] LABS: Albumin 3.35 g/dL (3.80-4.90); Gamma Globulin 1.06 g/dL (0.70-1.50)
[2020-08-17] MEDS ORDERED: hydrALAZINE HCL 25 MG TAB PO SCH (16:00)
== END 2020-08-17 13:47 | disposition home or self-care (01) | DRG 291 ==
LOC: EC 15:10 → 2SICU 17:35 → 3SCARD 08-15 20:42
PROVIDERS: ADMIT Internal Medicine; ATTEND Internal Medicine
DX: I13.0 Hypertensive heart and chronic kidney disease with heart failure and stage 1 through stage 4 chronic kidney disease, or unspecified chronic kidney disease (principal); N17.0 Acute kidney failure with tubular necrosis; I50.43 Acute on chronic combined systolic (congestive) and diastolic (congestive) heart failure; I16.1 Hypertensive emergency; K92.0 Hematemesis; I42.9 Cardiomyopathy, unspecified; E11.65 Type 2 diabetes mellitus with hyperglycemia; E11.22 Type 2 diabetes mellitus with diabetic chronic kidney disease; R80.9 Proteinuria, unspecified; E87.6 Hypokalemia; T50.2X5A Adverse effect of carbonic-anhydrase inhibitors, benzothiadiazides and other diuretics, initial encounter; Z20.822 Contact with and (suspected) exposure to COVID-19; N18.9 Chronic kidney disease, unspecified; I27.20 Pulmonary hypertension, unspecified; E66.9 Obesity, unspecified; F17.200 Nicotine dependence, unspecified, uncomplicated; Z68.32 Body mass index [BMI] 32.0-32.9, adult; Z82.49 Family history of ischemic heart disease and other diseases of the circulatory system; Z83.3 Family history of diabetes mellitus
CPT/HCPCS: 36415; 70450; 71045; 71275; 76770; 80048; 80053; 80061; 80074; 81001; 82550; 82570; 83036; 83605; 83735; 83880; 84132; 84156; 84165; 84443; 84484; 85025; 85379; 85610; 85730; 86038; 86160; 86162; 86225; 86255; 86334; 86335; 87040; 87635; 93005; 93306; 93970; 96361; 96374; 96375; 99291

== ENCOUNTER → 2020-09-21 | Outpatient (CLI) | payer MEDICARE ==
[2020-09-22 01:44] LABS: African American GFR (CKD) 33.9 (60.0-200.0); Anion Gap 10.3 mmol/L (4.00-12.00); BUN/Creat Ratio 20.91 Ratio (12.00-20.00); Calcium 9.7 mg/dL (8.7-10.3); Carbon Dioxide 25.7 mmol/L (21.6-31.8); Magnesium 1.9 mg/dL (1.5-2.4); Non-African American GFR(CKD) 29.3 (60.0-200.0); Phosphorus 4.1 mg/dL (2.4-5.1); Potassium 4.2 mmol/L (3.5-5.5)
== END | disposition home or self-care (01) ==
LOC: LABWHC1 14:37
PROVIDERS: ATTEND Family Medicine
DX: N17.9 Acute kidney failure, unspecified (principal)
CPT/HCPCS: 36415; 80048; 83735; 84100

== ENCOUNTER 2020-09-27 10:41 | Emergency (ER) | payer MEDICARE ==
--- NOTE | 2020-09-27 12:13 | ED ---
General Adult HPI - General Chief complaint: Extremity Problem,Nontraumatic Stated complaint: bilat leg swelling Time Seen by Provider: 09/27/20 12:02 Source: patient Mode of arrival: wheelchair Limitations: no limitations - History of Present Illness Initial comments: 69-year-old male presents to emergency Department with chief complaint of lower extremity swelling. Patient reports she was discharged about 3 weeks ago from this hospital after being diagnosed with a cardiomyopathy is started on multiple medications including eliquis. Patient states since he was discharged, he developed gradually increasing bilateral lower extremity edema. States today he noticed it was more than usual after she got out of the shower. States the swelling is in bilateral lower extremities. Denies any calf pain chest pain or shortness of breath. She has been taking his medication as advised. He denies any back pain abdominal pain headaches lightheadedness or dizziness. - Related Data Previous Rx's Medication Instructions Recorded Aspirin 81 mg PO DAILY #30 chew 08/17/20 Atorvastatin [Lipitor] 40 mg PO HS #30 tab 08/17/20 Isosorbide Mononitrate ER [Imdur] 60 mg PO DAILY #30 tab.er.24h 08/17/20 Metoprolol Tartrate [Lopressor] 50 mg PO BID #60 tab 08/17/20 Torsemide [Demadex] 20 mg PO DAILY #30 tab 08/17/20 amLODIPine [Norvasc] 10 mg PO DAILY #30 tab 08/17/20 hydrALAZINE HCL [Apresoline] 50 mg PO TID #90 tab 08/17/20 Allergies Allergy/AdvReac Type Severity Reaction Status Date / Time No Known Allergies Allergy Verified 09/27/20 13:17 Review of Systems ROS Statement: Those systems with pertinent positive or pertinent negative responses have been documented in the HPI. ROS Other: All systems not noted in ROS Statement are negative. Past Medical History Past Medical History: Hyperlipidemia, Hypertension, Myocardial Infarction ([place]) History of Any Multi-Drug Resistant Organisms: None Reported Past Surgical History: No Surgical Hx Reported Past Anesthesia/Blood Transfusion Reactions: No Reported Reaction Past Psychological History: No Psychological Hx Reported Smoking Status: Current every day smoker, Heavy tobacco smoker Past Alcohol Use History: Rare Past Drug Use History: Marijuana - Past Family History Father Family Medical History: Diabetes Mellitus, Myocardial Infarction ([place]) Additional Family Medical History / Comment(s): Had leg amputation Mother History Unknown: Yes Family Medical History: No Reported History Sister(s) Family Medical History: Diabetes Mellitus Additional Family Medical History / Comment(s): 1 sister had arm amputated due to diabetes General Exam Limitations: no limitations General appearance: alert, in no apparent distress, obese Head exam: Present: atraumatic, normocephalic, normal inspection Eye exam: Present: normal appearance, PERRL, EOMI Pupils: Present: normal accommodation ENT exam: Present: normal exam, normal oropharynx, mucous membranes moist Neck exam: Present: normal inspection, full ROM. Absent: tenderness Respiratory exam: Present: normal lung sounds bilaterally. Absent: respiratory distress, wheezes, rales, rhonchi, stridor, chest wall tenderness, accessory muscle use Cardiovascular Exam: Present: regular rate, normal rhythm, normal heart sounds GI/Abdominal exam: Present: soft. Absent: distended, tenderness, guarding, rebound Extremities exam: Present: normal inspection, full ROM, normal capillary refill, pedal edema (+1 pitting edema bilaterally), other (Palpable DP and PT bilaterally sensation intact in bilateral lower extremities.). Absent: tenderness, joint swelling, calf tenderness Back exam: Present: normal inspection, full ROM. Absent: tenderness Neurological exam: Present: alert, oriented X3 Psychiatric exam: Present: normal affect, normal mood Skin exam: Present: warm, dry, intact, normal color Course Vital Signs 09/27/20 09/27/20 11:16 12:18 Temperature 98.1 F Pulse Rate 58 L 57 L Respiratory 20 18 Rate Blood Pressure 113/74 156/89 O2 Sat by Pulse 99 95 Oximetry Medical Decision Making - Medical Decision Making 69-year-old male presents to emergency department with a chief complaint of leg swelling. On physical examination, she has +1 bilateral lower extremity edema. No calf tenderness. CBC CMP unremarkable. Elevated BUNs and creatinines at 40 and 2.0, respectively. However, this appears to be his baseline. Chest x-ray unremarkable. Initial and repeat troponins unremarkable. He has no chest pain or shortness of breath throughout the whole ED stay. BNP is 755 which appears to have him proved significantly compared to his most recent draw which was 11,000. Initial EKG showed sinus bradycardia with small ST elevations in V1 through V3. Repeat EKG showed similar findings. Patient continues to experience no chest pain or shortness of breath. Vital signs within normal limits. I gave the option for admission to the patient, he declined. States he would rather follow-up with his tiler's assistant in outpatient setting. Strict return parameters were thoroughly discussed the patient was understanding and agreeable. Case discussed with Dr. Toribio. - Lab Data Result diagrams: 09/27/20 12:13 09/27/20 12:13 Lab Results 09/27/20 09/27/20 09/27/20 Range/Units 12:13 12:13 12:13 WBC 10.2 (3.8-10.6) k/uL RBC 4.71 (4.30-5.90) m/uL Hgb 14.5 (13.0-17.5) gm/dL Hct 40.4 (39.0-53.0) % MCV 85.6 (80.0-100.0) fL MCH 30.8 (25.0-35.0) pg MCHC 35.9 (31.0-37.0) g/dL RDW 12.3 (11.5-15.5) % Plt Count 230 (150-450) k/uL MPV 6.9 Neutrophils % 69 % Lymphocytes % 22 % Monocytes % 5 % Eosinophils % 2 % Basophils % 0 % Neutrophils # 7.0 (1.3-7.7) k/uL Lymphocytes # 2.3 (1.0-4.8) k/uL Monocytes # 0.5 (0-1.0) k/uL Eosinophils # 0.2 (0-0.7) k/uL Basophils # 0.0 (0-0.2) k/uL PT 10.4 (9.0-12.0) sec INR 1.0 (<1.2) APTT 22.7 (22.0-30.0) sec Sodium 139 (137-145) mmol/L Potassium 4.0 (3.5-5.1) mmol/L Chloride 103 (98-107) mmol/L Carbon Dioxide 27 (22-30) mmol/L Anion Gap 9 mmol/L BUN 40 H (9-20) mg/dL Creatinine 2.01 H (0.66-1.25) mg/dL Est GFR (CKD-EPI)AfAm 38 (>60 ml/min/1.73 sqM) Est GFR (CKD-EPI)NonAf 33 (>60 ml/min/1.73 sqM) Glucose 163 H (74-99) mg/dL Calcium 9.7 (8.4-10.2) mg/dL Magnesium 1.8 (1.6-2.3) mg/dL Total Bilirubin 0.6 (0.2-1.3) mg/dL AST 25 (17-59) U/L ALT 19 (4-49) U/L Alkaline Phosphatase 95 (38-126) U/L Troponin I (0.000-0.034) ng/mL NT-Pro-B Natriuret Pep pg/mL Total Protein 7.6 (6.3-8.2) g/dL Albumin 4.2 (3.5-5.0) g/dL 09/27/20 09/27/20 09/27/20 Range/Units 12:13 12:13 13:33 WBC (3.8-10.6) k/uL RBC (4.30-5.90) m/uL Hgb (13.0-17.5) gm/dL Hct (39.0-53.0) % MCV (80.0-100.0) fL MCH (25.0-35.0) pg MCHC (31.0-37.0) g/dL RDW (11.5-15.5) % Plt Count (150-450) k/uL MPV Neutrophils % % Lymphocytes % % Monocytes % % Eosinophils % % Basophils % % Neutrophils # (1.3-7.7) k/uL Lymphocytes # (1.0-4.8) k/uL Monocytes # (0-1.0) k/uL Eosinophils # (0-0.7) k/uL Basophils # (0-0.2) k/uL PT (9.0-12.0) sec INR (<1.2) APTT (22.0-30.0) sec Sodium (137-145) mmol/L Potassium (3.5-5.1) mmol/L Chloride (98-107) mmol/L Carbon Dioxide (22-30) mmol/L Anion Gap mmol/L BUN (9-20) mg/dL Creatinine (0.66-1.25) mg/dL Est GFR (CKD-EPI)AfAm (>60 ml/min/1.73 sqM) Est GFR (CKD-EPI)NonAf (>60 ml/min/1.73 sqM) Glucose (74-99) mg/dL Calcium (8.4-10.2) mg/dL Magnesium (1.6-2.3) mg/dL Total Bilirubin (0.2-1.3) mg/dL AST (17-59) U/L ALT (4-49) U/L Alkaline Phosphatase (38-126) U/L Troponin I 0.014 <0.012 (0.000-0.034) ng/mL NT-Pro-B Natriuret Pep 755 pg/mL Total Protein (6.3-8.2) g/dL Albumin (3.5-5.0) g/dL Disposition Clinical Impression: Bilateral leg edema Disposition: HOME SELF-CARE Condition: Stable Instructions (If sedation given, give patient instructions): Leg Edema (ED) Additional Instructions: Keep your legs elevated above heart level. Follow-up with your tiler's assistant. Return to emergency department if symptoms worsen. Is patient prescribed a controlled substance at d/c from ED?: No Referrals: Martir Bro [Primary Care Provider] - 1-2 days Time of Disposition: 14:47
[2020-09-27 12:21] VITALS: RESP 18
[2020-09-27 12:23] LABS: Basophils % (A) 0 %; Eosinophils # (A) 0.2 k/uL (0-0.7); Eosinophils % (A) 2 %; HCT 40.4 % (39.0-53.0); HGB 14.5 gm/dL (13.0-17.5); Lymphocytes # (A) 2.3 k/uL (1.0-4.8); Lymphocytes % (A) 22 %; MCH 30.8 pg (25.0-35.0); MCHC 35.9 g/dL (31.0-37.0); MCV 85.6 fL (80.0-100.0); Mean Platelet Volume 6.9; Monocytes # (A) 0.5 k/uL (0-1.0); Monocytes % (A) 5 %; Neutrophils % (A) 69 %; Platelet Count 230 k/uL (150-450); RBC 4.71 m/uL (4.30-5.90); RDW 12.3 % (11.5-15.5); WBC 10.2 k/uL (3.8-10.6)
[2020-09-27 12:43] LABS: Partial Thromboplastin Time 22.7 sec (22.0-30.0); Prothrombin Time 10.4 sec (9.0-12.0)
--- NOTE | 2020-09-27 12:50 | XR ---
EXAMINATION TYPE: XR chest 2V DATE OF EXAM: 09/27/2020 COMPARISON: Chest x-ray dated 08/15/2020 HISTORY: Chest pain TECHNIQUE: Frontal and lateral views of the chest are obtained. FINDINGS: There is improvement in aeration, improvement in interstitium as compared to previous exam . There is no evident pneumothorax or sizable effusion. Interstitium only mildly increased. Cardiac m ediastinal silhouette is within normal limits. Aorta is dense. Patient is rotated. IMPRESSION: Improvement in patient's volume status, aeration within the lungs, follow-up as indicate d.
[2020-09-27 13:05] LABS: Albumin 4.2 g/dL (3.5-5.0); Calcium 9.7 mg/dL (8.4-10.2); Magnesium 1.8 mg/dL (1.6-2.3); Total Bilirubin 0.6 mg/dL (0.2-1.3); Total Protein 7.6 g/dL (6.3-8.2)
[2020-09-27 14:58] VITALS: BP 169/91; PULSE 59; TEMP 97.6
== END 2020-09-27 14:53 | disposition home or self-care (01) ==
LOC: EC 10:41
DX: R60.0 Localized edema (principal); R00.1 Bradycardia, unspecified; R79.89 Other specified abnormal findings of blood chemistry; I25.2 Old myocardial infarction; F17.200 Nicotine dependence, unspecified, uncomplicated
CPT/HCPCS: 36415; 71046; 80053; 83735; 83880; 84484; 85025; 85610; 85730; 93005; 99284

== ENCOUNTER → 2020-11-04 | Outpatient (CLI) | payer MEDICARE ==
--- NOTE | 2020-11-04 08:41 | US ---
EXAMINATION TYPE: US duplex aorta DATE OF EXAM: 11/04/2020 COMPARISON: NONE CLINICAL HISTORY: Z13.6 screening for cardiovascular disorders. unsure of family history, no symptom s, smoker . Medicare screening. EXAM MEASUREMENTS: Abdominal Aorta: Proximal: not seen due to bowel gas and large habitus Mid: 2.5 x 2.4cm Distal: 1.6 x 2.0cm Bifurcation: Rt=1.1cm Lt=1.2cm Difficult to visualize due to large habitus and bowel gas Proximal abdominal aorta not well seen. Mid to distal aorta seen through the bifurcation. IMPRESSION: No ultrasound evidence for greater than 3.0 cm AAA within the mid to distal abdominal aor ta.
== END | disposition home or self-care (01) ==
LOC: RADUSWWP 07:53
PROVIDERS: ATTEND Family Medicine
DX: Z13.6 Encounter for screening for cardiovascular disorders (principal)
CPT/HCPCS: 93979

== ENCOUNTER 2021-06-26 10:56 | Observation (INO) | payer MEDICARE ==
[2021-06-26 11:09] VITALS: RESP 18
[2021-06-26] MEDS ORDERED: ASPIRIN 81 MG PO STA (11:17)
--- NOTE | 2021-06-26 11:19 | ED ---
General Adult HPI - General Chief complaint: Chest Pain Stated complaint: Chest Pain Time Seen by Provider: 06/26/21 11:12 Source: patient, EMS, RN notes reviewed Mode of arrival: EMS Limitations: no limitations - History of Present Illness Initial comments: Patient is a pleasant 70-year-old male presenting to the emergency Department with chest discomfort. Onset was prior to arrival. Discomfort is gone at this time. Patient was at rest. Patient has sharp left-sided chest discomfort that lasted just a few minutes. Discomfort was somewhat mild. Patient does have history of heart attack just over a year ago however did not feel similar to this. No associated dyspnea, nausea, or diaphoresis. At this point patient is symptom-free. No radiation of symptoms. - Related Data Home Medications Medication Instructions Recorded Confirmed Aspirin EC [Ecotrin Low Dose] 81 mg PO DAILY 06/26/21 06/26/21 Previous Rx's Medication Instructions Recorded Atorvastatin [Lipitor] 40 mg PO HS #30 tab 08/17/20 Isosorbide Mononitrate ER [Imdur] 60 mg PO DAILY #30 tab.er.24h 08/17/20 Metoprolol Tartrate [Lopressor] 50 mg PO BID #60 tab 08/17/20 Torsemide [Demadex] 20 mg PO DAILY #30 tab 08/17/20 amLODIPine [Norvasc] 10 mg PO DAILY #30 tab 08/17/20 hydrALAZINE HCL [Apresoline] 50 mg PO TID #90 tab 08/17/20 Allergies Allergy/AdvReac Type Severity Reaction Status Date / Time No Known Allergies Allergy Verified 06/26/21 12:03 Review of Systems ROS Statement: Those systems with pertinent positive or pertinent negative responses have been documented in the HPI. ROS Other: All systems not noted in ROS Statement are negative. Constitutional: Denies: fever Eyes: Denies: eye pain ENT: Denies: ear pain Respiratory: Denies: cough, dyspnea Cardiovascular: Reports: as per HPI, chest pain Endocrine: Denies: fatigue Gastrointestinal: Denies: abdominal pain Genitourinary: Denies: dysuria Musculoskeletal: Denies: back pain Skin: Denies: rash Neurological: Denies: weakness Past Medical History Past Medical History: Hyperlipidemia, Hypertension, Myocardial Infarction ([place]) History of Any Multi-Drug Resistant Organisms: None Reported Past Surgical History: No Surgical Hx Reported Past Anesthesia/Blood Transfusion Reactions: No Reported Reaction Past Psychological History: No Psychological Hx Reported Smoking Status: Current every day smoker, Heavy tobacco smoker Past Alcohol Use History: Rare Past Drug Use History: Marijuana - Past Family History Father Family Medical History: Diabetes Mellitus, Myocardial Infarction ([place]) Additional Family Medical History / Comment(s): Had leg amputation Mother History Unknown: Yes Family Medical History: No Reported History Sister(s) Family Medical History: Diabetes Mellitus Additional Family Medical History / Comment(s): 1 sister had arm amputated due to diabetes General Exam Limitations: no limitations General appearance: alert, in no apparent distress Head exam: Present: normocephalic Eye exam: Present: normal appearance Neck exam: Present: normal inspection Respiratory exam: Present: normal lung sounds bilaterally. Absent: chest wall tenderness Cardiovascular Exam: Present: regular rate, normal rhythm Expanded Peripheral pulses: 2+: Radial (R), Radial (L), Posterior Tibialis (R), Posterior Tibialis (L) GI/Abdominal exam: Present: soft. Absent: tenderness Extremities exam: Present: normal inspection. Absent: pedal edema, calf tenderness Neurological exam: Present: alert Psychiatric exam: Present: normal affect, normal mood Skin exam: Present: normal color Course Vital Signs 06/26/21 11:05 Temperature 98.3 F Pulse Rate 78 Respiratory 18 Rate Blood Pressure 145/97 O2 Sat by Pulse 98 Oximetry EKG Findings - EKG Comments: EKG Findings:: Sinus rhythm with a rate of 76. VA 166. QRS 82. QT 406. QTc 456. Normal axis. Normal QRS. Nonspecific ST-T. Medical Decision Making - Medical Decision Making Patient evaluated and resting comfortably in bed. Patient updated on results and plan. Case was discussed with Dr. Pate, who will admit covering Dr. Suarez. - Lab Data Result diagrams: 06/26/21 11:34 06/26/21 11:34 Lab Results 06/26/21 06/26/21 06/26/21 Range/Units 11:34 11:34 11:34 WBC 11.0 H (3.8-10.6) k/uL RBC 4.78 (4.30-5.90) m/uL Hgb 15.2 (13.0-17.5) gm/dL Hct 43.6 (39.0-53.0) % MCV 91.2 (80.0-100.0) fL MCH 31.9 (25.0-35.0) pg MCHC 35.0 (31.0-37.0) g/dL RDW 13.2 (11.5-15.5) % Plt Count 226 (150-450) k/uL MPV 7.4 Sodium 138 (137-145) mmol/L Potassium 3.8 (3.5-5.1) mmol/L Chloride 106 (98-107) mmol/L Carbon Dioxide 23 (22-30) mmol/L Anion Gap 9 mmol/L BUN 25 H (9-20) mg/dL Creatinine 1.54 H (0.66-1.25) mg/dL Est GFR (CKD-EPI)AfAm 52 (>60 ml/min/1.73 sqM) Est GFR (CKD-EPI)NonAf 45 (>60 ml/min/1.73 sqM) Glucose 126 H (74-99) mg/dL Calcium 9.3 (8.4-10.2) mg/dL Magnesium 1.8 (1.6-2.3) mg/dL Total Bilirubin 0.7 (0.2-1.3) mg/dL AST 27 (17-59) U/L ALT 22 (4-49) U/L Alkaline Phosphatase 109 (38-126) U/L Troponin I 0.013 (0.000-0.034) ng/mL Total Protein 7.7 (6.3-8.2) g/dL Albumin 4.1 (3.5-5.0) g/dL - Radiology Data Radiology results: image reviewed (Chest x-ray shows no acute process) Disposition Clinical Impression: Chest pain Disposition: ADMITTED IP TO THIS HOSP Is patient prescribed a controlled substance at d/c from ED?: No Referrals: Martir Bro [Primary Care Provider] - 1-2 days Decision Time: 12:43
--- NOTE | 2021-06-26 11:52 | XR ---
EXAMINATION TYPE: XR chest 2V DATE OF EXAM: 06/26/2021 COMPARISON: NONE HISTORY: Shortness of breath TECHNIQUE: Frontal and lateral views of the chest are obtained. FINDINGS: Scattered senescent parenchymal changes noted. Hyperinflation compatible with COPD. No evidence for infiltrate. No evidence for atelectasis. Heart size is stable. Mediastinal structures are stable and grossly unremarkable. No evidence for hilar prominence. Degenerative changes dorsal spine. IMPRESSION: 1. No evidence for acute pulmonary disease.
[2021-06-26 11:59] LABS: Basophils % (A) 0 %; Eosinophils # (A) 0.1 k/uL (0-0.7); Eosinophils % (A) 1 %; HCT 43.6 % (39.0-53.0); HGB 15.2 gm/dL (13.0-17.5); Lymphocytes # (A) 1.8 k/uL (1.0-4.8); Lymphocytes % (A) 16 %; MCH 31.9 pg (25.0-35.0); MCV 91.2 fL (80.0-100.0); Mean Platelet Volume 7.4; Monocytes # (A) 0.7 k/uL (0-1.0); Monocytes % (A) 6 %; Neutrophils # (A) 8.3 k/uL (1.3-7.7); Neutrophils % (A) 76 %; Platelet Count 226 k/uL (150-450); RBC 4.78 m/uL (4.30-5.90); RDW 13.2 % (11.5-15.5)
[2021-06-26 12:04] LABS: INR 0.9 (<1.2); Partial Thromboplastin Time 24.3 sec (22.0-30.0); Prothrombin Time 10.1 sec (9.0-12.0)
[2021-06-26 12:11] LABS: Albumin 4.1 g/dL (3.5-5.0); Calcium 9.3 mg/dL (8.4-10.2); Total Bilirubin 0.7 mg/dL (0.2-1.3); Total Protein 7.7 g/dL (6.3-8.2)
[2021-06-26 12:27] LABS: Magnesium 1.8 mg/dL (1.6-2.3); Potassium 3.8 mmol/L (3.5-5.1)
[2021-06-26] MEDS ORDERED: NITROGLYCERIN SL TABS 0.4 MG TAB SUBLINGUAL PRN (12:43)
[2021-06-26] MEDS ORDERED: NICOTINE GUM (POLACRILEX) 2 MG GUM BUCCAL PRN (18:07)
--- NOTE | 2021-06-26 18:20 | P.HPIM ---
<Martin Toney - Last Filed: 06/26/21 18:11> History of Present Illness H&P Date: 06/26/21 History of Presenting Illness: Patient is a very pleasant 70-year-old male with a past medical history of CAD with previous DC hypertension, hyperlipidemia, CKD stage III and prediabetes. He presented to the emergency department with a chief complaint of chest discomfort. Patient reports this morning while sitting down he began feeling pain to his left anterior chest described as a pressure. Patient reports this lasted approximately 2-3 minutes and spontaneously resolved. Patient denies feeling any headache, lightheadedness, dizziness, diaphoresis, palpitations, shortness of breath, nausea, or experiencing any numbness/tingling/weakness during this event. In the emergency department, patient underwent full evaluation. CBC revealed mild leukocytosis with WBC count of 11.0 otherwise normal findings, CMP consistent with stage III CKD with BUN 25, creatinine 1.54, and GFR 45. Covid PCR was negative. Troponin 0.013, 0.013, and d-dimer elevated at 0.66. Chest x-ray negative for acute cardiopulmonary process. EKG showing normal sinus rhythm with slight ST elevation and septal anterior leads V1, V2 and V3 unchanged from previous EKG completed on 09/27/20. Patient admit adriana under our services with consultation to cardiology. Review of systems: Pertinent positives and negatives as discussed in HPI, a complete review of syst ems was performed and all other systems are negative. Physical exam: Vital signs reviewed and stable. General: Nontoxic, no distress and appears stated age. Derm: Skin warm and dry, normal coloration for ethnicity. Head: Atraumatic, normocephalic and symmetric. Eyes: EOMs intact, no lid lag, and anicteric sclera Mouth: no lip lesions, mucus membranes moist Cardiovascular: regular rate and rhythm with normal S1S2, no murmur, positive posterior tibial pulses bilaterally, and cap refill < 2 seconds. Lungs: Respirations even, regular, and unlabored on room air. Lungs diminished, soft expiratory wheezes present. No rhonchi, no rales, and no accessory muscle usage. Abdominal: soft, nontender to palpation, no guarding, no appreciable organomeg dieudonne Ext: ROM intact. No gross muscle atrophy, no edema, no contractures Neuro: Speech clear, face symmetrical and CN II-XII grossly intact with no noted focal neuro deficits Psych: Alert and oriented to person, place, time, and situation. Appropriate and pleasant affect. Assessment and Plan of Care: Chest pain/pressure, rule out acute coronary event -Cardiology consult -Telemetry monitoring -Trend troponins -Echocardiogram -Cardiac diet -Aspirin, atorvastatin, and metoprolol -Continuation of daily medications including: Torsemide, isosorbide mononitrate, hydralazine, and amlodipine -Lipid profile and Hgb A1c with a.m. labs. -Continued close monitoring of electrolytes while diuresing. Elevated d-dimer -VQ scan to be completed secondary to stage III CKD. Hypertension -Monitor vital signs and continue daily medication regimen with amlodipine, hydralazine, metoprolol, and isosorbide mononitrate. Hyperlipidemia -Continue daily medication regimen with atorvastatin 40 mg nightly -Lipid profile with a.m. labs Prediabetes -Hemoglobin A1c with a.m. labs. Nicotine dependence -Patient reports smoking 1.25 packs of cigarettes daily for greater than 60 years. -Continue to encourage and educate patient on the benefits of smoking cessation and risks of continued use. -Nicotine patch and nicotine gum. The patient is admitted with an anticipated less than 2 midnight stay for evaluation of chest pain . CODE STATUS: Full code DVT prophylaxis: Heparin Discussed with: Patient, RN, and patient's . Anticipated discharge date: 1-[address]: Home A total of 45 minutes was spent on the care of this complex patient more than 50% of the time was spent in counseling and care coordination. Past Medical History Past Medical History: Heart Failure, Hyperlipidemia, Hypertension, Renal Disease Additional Past Medical History / Comment(s): Cardiomyopathy, History of Any Multi-Drug Resistant Organisms: None Reported Past Surgical History: No Surgical Hx Reported Past Anesthesia/Blood Transfusion Reactions: Unable to Obtain Additional Past Anesthesia/Blood Transfusion Reaction / Comment(s): Pt states he has never had surgery. Smoking Status: Current every day smoker - Past Family History Father Family Medical History: Diabetes Mellitus, Myocardial Infarction ([place]) Additional Family Medical History / Comment(s): Had leg amputation Mother History Unknown: Yes Family Medical History: No Reported History Sister(s) Family Medical History: Diabetes Mellitus Additional Family Medical History / Comment(s): 1 sister had arm amputated due to diabetes Medications and Allergies Home Medications Medication Instructions Recorded Confirmed Type Atorvastatin [Lipitor] 40 mg PO HS #30 tab 08/17/20 06/26/21 Rx Isosorbide Mononitrate ER [Imdur] 60 mg PO DAILY #30 tab.er.24h 08/17/20 06/26/21 Rx Metoprolol Tartrate [Lopressor] 50 mg PO BID #60 tab 08/17/20 06/26/21 Rx Torsemide [Demadex] 20 mg PO DAILY #30 tab 08/17/20 06/26/21 Rx amLODIPine [Norvasc] 10 mg PO DAILY #30 tab 08/17/20 06/26/21 Rx hydrALAZINE HCL [Apresoline] 50 mg PO TID #90 tab 08/17/20 06/26/21 Rx Aspirin EC [Ecotrin Low Dose] 81 mg PO DAILY 06/26/21 06/26/21 History Allergies Allergy/AdvReac Type Severity Reaction Status Date / Time No Known Allergies Allergy Verified 06/26/21 12:03 Physical Exam Vitals: Vital Signs Temp Pulse Pulse Resp BP BP Pulse Ox 06/26/21 14:29 98.1 F 78 18 180/91 97 06/26/21 13:09 73 18 141/91 96 06/26/21 11:05 98.3 F 78 18 145/97 98 Intake and Output 06/26/21 06/26/21 06/26/21 06:59 14:59 22:59 Other: # Voids 1 Weight 96.615 kg Results CBC & Chem 7: 06/26/21 11:34 06/26/21 11:34 Labs: Abnormal Lab Results - Last 24 Hours (Table) 06/26/21 06/26/21 06/26/21 Range/Units 11:34 11:34 11:34 WBC 11.0 H (3.8-10.6) k/uL Neutrophils # 8.3 H (1.3-7.7) k/uL D-Dimer 0.66 H (<0.60) mg/L FEU BUN 25 H (9-20) mg/dL Creatinine 1.54 H (0.66-1.25) mg/dL Glucose 126 H (74-99) mg/dL Thrombosis Risk Factor Assmnt - Choose All That Apply Any of the Below Risk Factors Present?: Yes Each Factor Represents 1 point: Obesity (BMI >25) Other Risk Factors: Yes Each Risk Factor Represents 2 Points: Age 61-74 years Other congenital or acquired thrombophilia - If yes, enter type in comment: No Thrombosis Risk Factor Assessment Total Risk Factor Score: 3 Thrombosis Risk Factor Assessment Level: Moderate Risk <Fartun Pate - Last Filed: 06/26/21 18:55> History of Present Illness Patient seen and examined independently. Patient was also seen by Martin Toney NP and case was discussed. I am in agreement with subjective, physical exam, assessment and plan as written above and amended below. Patient seen and examined at bedside. He is currently chest pain-free. He reports that he follows [facility] ( Dr. Haddad). He had a stress test in May, he states this ias chemical and negative. Chest x-ray clinically doubt acute coronary syndrome. Will await VQ scan and continue to monitor on telemetry for signs of arrhythmia. General: non toxic, no distress, appears at stated age Derm: warm, dry Head: atraumatic, normocephalic, symmetric Eyes: EOMI, no lid lag, anicteric sclera Mouth: no lip lesion, mucus membranes moist Cardiovascular: S1S2 reg, no murmur, positive posterior tibial pulse bilateral, Lungs: CTA bilateral, no rhonchi, no rales , no accessory muscle use Neuro: CN II-XI grossly intact, no focal neuro deficits Psych: Alert, oriented, appropriate affect Physical Exam Osteopathic Statement: *. No significant issues noted on an osteopathic structural exam other than those noted in the History and Physical/Consult. Vitals: Vital Signs Temp Pulse Pulse Resp BP BP Pulse Ox 06/26/21 14:29 98.1 F 78 18 180/91 97 06/26/21 13:09 73 18 141/91 96 06/26/21 11:05 98.3 F 78 18 145/97 98 Intake and Output 06/26/21 06/26/21 06/26/21 06:59 14:59 22:59 Intake Total 120 Balance 120 Intake: Oral 120 Other: # Voids 1 Weight 96.615 kg Results CBC & Chem 7: 06/26/21 11:34 06/26/21 11:34 Labs: Abnormal Lab Results - Last 24 Hours (Table) 06/26/21 06/26/21 06/26/21 Range/Units 11:34 11:34 11:34 WBC 11.0 H (3.8-10.6) k/uL Neutrophils # 8.3 H (1.3-7.7) k/uL D-Dimer 0.66 H (<0.60) mg/L FEU BUN 25 H (9-20) mg/dL Creatinine 1.54 H (0.66-1.25) mg/dL Glucose 126 H (74-99) mg/dL
[2021-06-26] MEDS: NICOTINE 21MG/24HR PATCH TRANSDERM SCH (18:28)
[2021-06-26] MEDS ORDERED: ATORVASTATIN 40 MG TAB PO SCH (21:00)
[2021-06-26] MEDS: METOPROLOL TARTRATE 50 MG TAB PO SCH (21:19)
[2021-06-26] MEDS: hydrALAZINE HCL 50 MG TAB PO SCH (21:20)
[2021-06-27] MEDS: HEPARIN SODIUM,PORCINE/PF 5,000 UNIT/0.5 ML SYRINGE SQ SCH ×2 (01:03→09:29)
[2021-06-27 07:28] VITALS: BP 175/100; PULSE 67; TEMP 97.7
--- NOTE | 2021-06-27 08:41 | NM ---
EXAMINATION TYPE: NM pul vent and perfuse DATE OF EXAM: 06/27/2021 COMPARISON: NONE HISTORY: Shortness of breath elevated d-dimer TECHNIQUE: Utilizing inhalation of 36.1 mCi Tc 99m DTPA aerosol and intravenous injection of 4.9 mCi of Tc 99m MAA, ventilation and perfusion images are acquired post injection in multiple projections. FINDINGS: Normal radiotracer distribution is noted in the lungs. There is no evidence of mismatched defects. IMPRESSION: Very low probability for pulmonary embolism.
[2021-06-27] MEDS ORDERED: ISOSORBIDE MONONITRATE ER 60 MG TAB.ER.24H PO SCH (09:00)
[2021-06-27] MEDS ORDERED: ASPIRIN 81 MG PO SCH (09:00)
[2021-06-27] MEDS ORDERED: TORSEMIDE 20 MG TAB PO SCH (09:00)
[2021-06-27] MEDS ORDERED: ASPIRIN 325 MG TAB PO SCH (09:00)
[2021-06-27] MEDS ORDERED: amLODIPine 10 MG TAB PO SCH (09:00)
[2021-06-27] MEDS: NICOTINE 21MG/24HR PATCH TRANSDERM SCH (09:30)
[2021-06-27] MEDS: METOPROLOL TARTRATE 50 MG TAB PO SCH (09:30)
[2021-06-27] MEDS: hydrALAZINE HCL 50 MG TAB PO SCH (09:30)
[2021-06-27 09:59] LABS: HCT 39.7 % (39.6-50.0); HGB 13.8 g/dL (13.0-17.0); MCH 31.2 pg (27.0-32.0); MCHC 34.8 g/dL (32.0-37.0); MCV 89.8 fL (80.0-97.0); Mean Platelet Volume 10.1 fL (9.5-12.2); Platelet Count 225 X 10*3/uL (140-440); RBC 4.42 X 10*6/uL (4.40-5.60); RDW 13.3 % (11.5-14.5); WBC 9.23 X 10*3/uL (4.50-10.00)
[2021-06-27 10:56] LABS: ALT 19 U/L (10-49); AST 17 U/L (14-35); African American GFR (CKD) 53.5 (60.0-200.0); Albumin 3.8 g/dL (3.8-4.9); Albumin/Globulin Ratio 1.58 (1.60-3.17); Alkaline Phosphatase 105 U/L (41-126); BUN/Creat Ratio 14.87 Ratio (12.00-20.00); Blood Urea Nitrogen 22.3 mg/dL (9.0-27.0); Carbon Dioxide 22.2 mmol/L (20.0-27.5); Chloride 105 mmol/L (96-109); Chol/HDL Ratio 3.46 Ratio; Globulin 2.4 g/dL (1.6-3.3); Glucose 122 mg/dL (70-110); LDL Cholesterol,Calculated 40.6 mg/dL (0.0-131.0); Magnesium 1.9 mg/dL (1.5-2.4); Non-African American GFR(CKD) 46.2 (60.0-200.0); Potassium 3.4 mmol/L (3.5-5.5); Sodium 140 mmol/L (135-145); Total Protein 6.2 g/dL (6.2-8.2)
--- NOTE | 2021-06-27 11:50 | CONS ---
CONSULTATION This is a 70-year-old gentleman with a history of hypertension, hyperlipidemia and mild aortic stenosis. He sees Dr. Haddad on a regular basis in the office. He also had a recent stress test in September of this year, which was a Lexiscan stress test, which did not reveal ischemia and ejection fraction was normal. He presents here with a complaint of having had an episode of what he describes as a pain in his left lower lateral chest. This seemed to occur at rest. He never has chest pain with activity. In fact, this pain resolves with activity. The pain is almost reproducible sometimes. It seems very focal. It hurts when he lies down on the left side. There is some pleuritic quality to the pain as well. His D-dimer was elevated and his V/Q scan revealed low probability. He is resting comfortably and his symptoms have now resolved. His blood pressure is under good control. His troponins are normal. He is resting comfortably without symptoms. PAST MEDICAL HISTORY: 1. Hypertension. 2. Hyperlipidemia. 3. Negative Lexiscan stress test in September of this year. 4. History of smoking, and he continues to smoke on a regular basis. MEDICATIONS: Medications at home include amlodipine, Demadex, metoprolol tartrate, Imdur, atorvastatin and aspirin. ALLERGIES: NONE. REVIEW OF SYSTEMS: Unremarkable other than above-mentioned facts. PHYSICAL EXAMINATION: On examination, blood pressure is 150/80, pulse rate is about 70 per minute, regular. HEENT unremarkable. Fundus was not examined by me. Neck is supple. There is no JVD. I do not hear a carotid bruit. Heart exam reveals S1, S2 with ejection systolic murmur at the base. Second heart sound is preserved. Lungs are clear. Abdomen is soft, nontender. There is some tenderness in the left lateral chest wall. Lower extremities reveal normal pulses; no edema. Central nervous system is normal. IMPRESSION: 1. Atypical chest pain. 2. Hypertension. 3. Hyperlipidemia. 4. Patient may have mild aortic stenosis. 5. No evidence to suggest any significant myocardial ischemia. Stress test was negative in September of this year. RECOMMENDATIONS: I am recommending that we can increase activity, discharge the patient. He already has an appointment to see Dr. Haddad on July 06. Advised to continue current medications and to call for any question, concern or problem. MMODL / IJN: [id number] /
[2021-06-27] MEDS ORDERED: POTASSIUM CHLORIDE ER 20 MEQ TAB.ER PO STA (13:04)
--- NOTE | 2021-06-27 13:12 | P.DS ---
<Martin Toney - Last Filed: 06/27/21 13:18> Providers Expected date of discharge: 06/27/21 Hospital Course: Discharge Diagnosis: Chest pain/pressure, rule out acute coronary event Elevated d-dimer, VQ scan showing very low probability for PE Mild aortic stenosis Hypertension Hyperlipidemia Hypokalemia Prediabetes, follow-up with PCP for hemoglobin A1c results Nicotine dependence, encourage smoking cessation Hospital Course: Patient is a very pleasant 70-year-old male with a past medical history of CAD with previous DE, mild aortic stenosis, hypertension, hyperlipidemia, CKD stage III and prediabetes. He presented to the emergency department with a chief complaint of chest discomfort. Patient reports this morning while sitting down he began feeling pain to his left anterior chest described as a pressure. Patient reports this lasted approximately 2-3 minutes and spontaneously resolved. Patient denies feeling any headache, lightheadedness, dizziness, diaphoresis, palpitations, shortness of breath, nausea, or experiencing any numbness/tingling/weakness during this event. In the emergency department, patient underwent full evaluation. CBC revealed mild leukocytosis with WBC count of 11.0 otherwise normal findings, CMP consistent with stage III CKD with BUN 25, creatinine 1.54, and GFR 45. Covid PCR was negative. Troponin 0.013, 0.013, and d-dimer elevated at 0.66. Chest x-ray negative for acute cardiopulmonary process. EKG showing normal sinus rhythm with slight ST elevation and septal anterior leads V1, V2 and V3 unchanged from previous EKG completed on 09/27/20. Patient admitted to rule out ACS and was admitted to observation unit under our services with consultation to cardiology. Troponins were trended 0.013, 0.013, less than 0.012. Lipid profile drawn and was unremarkable. VQ scan showing very low probability for pulmonary emboli. Patient underwent full evaluation by black ash burner operator. Acute coronary event has been ruled out. Cardiology recommending follow-up as scheduled with Dr. Haddad on July 06 and to continue current cardiac medication regimen. Patient has been free of chest pain since arrival to our facility, again acute coronary event has been ruled out. Patient is medically stable for discharge at this time. Patient to follow-up as directed with cardiology as well as PCP. No medication changes made at this time. Hemoglobin A1c was drawn and pending results, patient will need to follow up outpatient with primary care provider for results as they are not available at time of discharge. Physical exam: Vital signs reviewed and stable. General: Nontoxic, no distress and appears stated age. Derm: Skin warm and dry, normal coloration for ethnicity. Head: Atraumatic, normocephalic and symmetric. Eyes: EOMs intact, no lid lag, and anicteric sclera Mouth: no lip lesions, mucus membranes moist Cardiovascular: regular rate and rhythm with normal S1S2, murmur, positive posterior tibial pulses bilaterally, and cap refill < 2 seconds. Lungs: Respirations even, regular, and unlabored on room air. Lungs diminished, soft expiratory wheezes present. No rhonchi, no rales, and no accessory muscle usage. Abdominal: soft, nontender to palpation, no guarding, no appreciable organomegaly Ext: ROM intact. No gross muscle atrophy, no edema, no contractures Neuro: Speech clear, face symmetrical and CN II-XII grossly intact with no noted focal neuro deficits Psych: Alert and oriented to person, place, time, and situation. Appropriate and pleasant affect. A total of 45 minutes of time were spent preparing this complex discharge summary. Patient Condition at Discharge: Stable Plan - Discharge Summary Discharge Rx Participant: No New Discharge Prescriptions: Continue hydrALAZINE HCL [Apresoline] 50 mg PO TID #90 tab Torsemide [Demadex] 20 mg PO DAILY #30 tab Isosorbide Mononitrate ER [Imdur] 60 mg PO DAILY #30 tab.er.24h Atorvastatin [Lipitor] 40 mg PO HS #30 tab Metoprolol Tartrate [Lopressor] 50 mg PO BID #60 tab amLODIPine [Norvasc] 10 mg PO DAILY #30 tab Aspirin EC [Ecotrin Low Dose] 81 mg PO DAILY Discharge Medication List Atorvastatin [Lipitor] 40 mg PO HS #30 tab 08/17/20 [Rx] Isosorbide Mononitrate ER [Imdur] 60 mg PO DAILY #30 tab.er.24h 08/17/20 [Rx] Metoprolol Tartrate [Lopressor] 50 mg PO BID #60 tab 08/17/20 [Rx] Torsemide [Demadex] 20 mg PO DAILY #30 tab 08/17/20 [Rx] amLODIPine [Norvasc] 10 mg PO DAILY #30 tab 08/17/20 [Rx] hydrALAZINE HCL [Apresoline] 50 mg PO TID #90 tab 08/17/20 [Rx] Aspirin EC [Ecotrin Low Dose] 81 mg PO DAILY 06/26/21 [History] Follow up Appointment(s)/Referral(s): Connor Haddad MD [STAFF PHYSICIAN] - 1 Week Martir Bro [Primary Care Provider] - 1-2 days Patient Instructions/Handouts: Chest Pain (DC), How to Stop Smoking (DC) Activity/Diet/Wound Care/Special Instructions: Activity: As tolerated. Take breaks as needed. Diet: Heart healthy and carb consistent diet. Avoid salts, or foods with hidden salts such as canned or boxed foods and frozen dinners. Extra salt makes your heart work harder and traps the fluid in your body for longer. Special Instructions: Take all of your medications as directed and remember to keep all of your doctor 's appointments and follow-up as needed. Wishing you very happy, healthy, and prosperous new year!!!! Thank you for allowing us to participate in your care, it was truly a pleasure having you for our patient!!! Discharge Disposition: HOME SELF-CARE <Fartun Pate - Last Filed: 06/27/21 20:02> Providers Date of admission: 06/26/21 12:44 Attending physician: Fartun Pate DO Consults: 06/26/21 12:44 Consult Physician Urgent Consulting Provider: Royer Hillman Reason/Comments: cp Do you want consulting provider notified?: Yes Primary care physician: Martir Bro [place] [facility] Course: Martin Toney NP rendered care for this patient independently, reviewed the findings and plan as documented in the note above. I did not physically speak with or examine the patient on this date.
== END 2021-06-27 14:05 | disposition home or self-care (01) ==
LOC: EC 10:56 → 6NMEDSUR 12:44
PROVIDERS: ADMIT Internal Medicine; ATTEND Internal Medicine
DX: R07.89 Other chest pain (principal); R79.89 Other specified abnormal findings of blood chemistry; I35.0 Nonrheumatic aortic (valve) stenosis; I13.0 Hypertensive heart and chronic kidney disease with heart failure and stage 1 through stage 4 chronic kidney disease, or unspecified chronic kidney disease; I50.9 Heart failure, unspecified; N18.30 Chronic kidney disease, stage 3 unspecified; R73.03 Prediabetes; I25.2 Old myocardial infarction; E87.6 Hypokalemia; E78.5 Hyperlipidemia, unspecified; F17.210 Nicotine dependence, cigarettes, uncomplicated; I25.10 Atherosclerotic heart disease of native coronary artery without angina pectoris; D72.829 Elevated white blood cell count, unspecified; I42.9 Cardiomyopathy, unspecified; E66.9 Obesity, unspecified; Z68.33 Body mass index [BMI] 33.0-33.9, adult; Z20.822 Contact with and (suspected) exposure to COVID-19; Z71.6 Tobacco abuse counseling; Z79.82 Long term (current) use of aspirin; Z79.899 Other long term (current) drug therapy; Z83.3 Family history of diabetes mellitus; Z82.49 Family history of ischemic heart disease and other diseases of the circulatory system
CPT/HCPCS: 96372; 99285; 36415; 93005; 85379; 80061; 80053 ×2; 83735 ×2; 84484; 85025; 85027; 85610; 85730; 83036; 87635; 71046; 78582; G0378 ×2; A9540; A9567; S4990 ×2; J1644

== ENCOUNTER 2023-05-06 20:23 | Inpatient (IN) | payer MEDICARE ==
[2023-05-06] MEDS ORDERED: ONDANSETRON 4 MG/2 ML VIAL IVP STA (20:46)
[2023-05-06] MEDS ORDERED: SODIUM CHLORIDE 0.9% 500 ML 500 ML IV STA (20:46)
--- NOTE | 2023-05-06 20:59 | ED ---
Abdominal Pain HPI - General Chief Complaint: Abdominal Pain Stated Complaint: Vomiting, Sent by Dr Haddad Time Seen by Provider: 05/06/23 20:31 Source: patient, family, RN notes reviewed Mode of arrival: ambulatory Limitations: no limitations - History of Present Illness Initial Comments: 72-year-old male presents emergency Department chief complaint left-sided abdominal, chest pain. Patient states that pain is not for last few days. He states he also has nausea vomiting states he feels extremely dehydrated. Patient was noted of fever upon arrival. He denies any severe diarrhea. Patient states that he does have a productive cough, hurts to cough. Patient denies any sick contacts denies any back pain no headache no dizziness. - Related Data Home Medications Medication Instructions Recorded Confirmed Aspirin EC [Ecotrin Low Dose] 81 mg PO DAILY 06/26/21 06/26/21 Previous Rx's Medication Instructions Recorded Atorvastatin [Lipitor] 40 mg PO HS #30 tab 08/17/20 Isosorbide Mononitrate ER [Imdur] 60 mg PO DAILY #30 tab.er.24h 08/17/20 Metoprolol Tartrate [Lopressor] 50 mg PO BID #60 tab 08/17/20 Torsemide [Demadex] 20 mg PO DAILY #30 tab 08/17/20 amLODIPine [Norvasc] 10 mg PO DAILY #30 tab 08/17/20 hydrALAZINE HCL [Apresoline] 50 mg PO TID #90 tab 08/17/20 Allergies Allergy/AdvReac Type Severity Reaction Status Date / Time No Known Allergies Allergy Verified 05/06/23 20:29 Review of Systems ROS Statement: Those systems with pertinent positive or pertinent negative responses have been documented in the HPI. ROS Other: All systems not noted in ROS Statement are negative. Past Medical History Past Medical History: Heart Failure, Hyperlipidemia, Hypertension, Renal Disease Additional Past Medical History / Comment(s): Cardiomyopathy, History of Any Multi-Drug Resistant Organisms: None Reported Past Surgical History: No Surgical Hx Reported Past Anesthesia/Blood Transfusion Reactions: Unable to Obtain Additional Past Anesthesia/Blood Transfusion Reaction / Comment(s): Pt states he has never had surgery. Past Psychological History: No Psychological Hx Reported Smoking Status: Current every day smoker Past Alcohol Use History: None Reported Past Drug Use History: None Reported - Past Family History Father Family Medical History: Diabetes Mellitus, Myocardial Infarction (HI) Additional Family Medical History / Comment(s): Had leg amputation Mother History Unknown: Yes Family Medical History: No Reported History Sister(s) Family Medical History: Diabetes Mellitus Additional Family Medical History / Comment(s): 1 sister had arm amputated due to diabetes General Exam Limitations: no limitations General appearance: alert, in no apparent distress Head exam: Present: atraumatic, normocephalic, normal inspection Neck exam: Present: normal inspection, full ROM. Absent: tenderness, meningismus, lymphadenopathy Respiratory exam: Present: normal lung sounds bilaterally. Absent: respiratory distress, wheezes, rales, rhonchi, stridor Cardiovascular Exam: Present: regular rate, normal rhythm, normal heart sounds. Absent: systolic murmur, diastolic murmur, rubs, gallop, clicks GI/Abdominal exam: Present: soft, tenderness, normal bowel sounds. Absent: distended, guarding, rebound, rigid Back exam: Absent: CVA tenderness (R), CVA tenderness (L) Neurological exam: Present: alert Skin exam: Present: warm, dry, intact, normal color. Absent: rash Course Vital Signs 05/06/23 20:25 Temperature 100.1 F H Pulse Rate 73 Respiratory 17 Rate Blood Pressure 104/60 O2 Sat by Pulse 95 Oximetry Medical Decision Making - Medical Decision Making Was pt. sent in by a medical professional or institution (RAPHAEL Tubbs, DATABASE TECHNICIAN, urgent care, hospital, or snf...) When possible be specific @ -No Did you speak to anyone other than the patient for history (EMS, parent, family, police, friend...)? What history was obtained from this source @ -No Did you review nursing and triage notes (agree or disagree)? Why? @ -I reviewed and agree with nursing and triage notes Were old charts reviewed (outside hosp., previous admission, EMS record, old EKG, old radiological studies, urgent care reports/EKG's, snf records)? Report findings @ -No old charts were reviewed Differential Diagnosis (chest pain, altered mental status, abdominal pain women, abdominal pain men, vaginal bleeding, weakness, fever, dyspnea, syncope, headache, dizziness, GI bleed, back pain, seizure, CVA, palpatations, mental health, musculoskeletal)? @ -nDifferential Dyspnea: Coronary syndrome, arrhythmia, tamponade, asthma, COPD, pulmonary embolism, pneumonia, pneumothorax, pulmonary effusion, anaphylaxis, diabetic ketoacidosis, flailed chest, pulmonary contusion, diaphragmatic rupture, anemia, neuromuscular, this is not meant to be an all-inclusive list. le EKG interpreted by me (3pts min.). @ -As above X-rays interpreted by me (1pt min.). @ -Chest x-ray shows left-sided infiltrate along with right-sided infiltrate CT interpreted by me (1pt min.). @ -None done U/S interpreted by me (1pt. min.). @ -None done What testing was considered but not performed or refused? (CT, X-rays, U/S, labs)? Why? @ -None What meds were considered but not given or refused? Why? @ -None Did you discuss the management of the patient with other professionals (professionals i.e. , PA, DATABASE TECHNICIAN, lab, RT, psych nurse, marriage and family social worker, parole agent, teacher, staff antisubmarine officer, case filler)? Give summary @ -Dr. Gibbons for admission secondary to acute kidney injury, pneumonia, dehydration, hypokalemia Was smoking cessation discussed for >3mins.? @ -No Was critical care preformed (if so, how long)? @ -No Were there social determinants of health that impacted care today? How? (Homelessness, low income, unemployed, alcoholism, drug addiction, transportation, low edu. Level, literacy, decrease access to med. care, longterm, rehab)? @ -No Was there de-escalation of care discussed even if they declined (Discuss DNR or withdrawal of care, Hospice)? DNR status @ -No What co-morbidities impacted this encounter? (DM, HTN, Smoking, COPD, CAD, Cancer, CVA, ARF, Chemo, Hep., AIDS, mental health diagnosis, sleep apnea, morbid obesity)? @ -Hypertension, hyperlipidemia Was patient admitted / discharged? Hospital course, mention meds given and route, prescriptions, significant lab abnormalities, going to OR and other pertinent info. @ -Admitted patient's found to have evidence of bilateral pneumonia with acute kidney injury with creatinine 3.21, patient was given normal saline bolus complaint is fluids. Patient is anemic, has evidence of hypokalemia hypomagnesemia. Patient does have some notable anemia. The patient was given Rocephin, azithromycin along with potassium, magnesium. Undiagnosed new problem with uncertain prognosis? @ -No Drug Therapy requiring intensive monitoring for toxicity (Heparin, Nitro, Insulin, Cardizem)? @ -No Were any procedures done? @ -No Diagnosis/symptom? @ -Bilateral pneumonia, hypokalemia, hypomagnesemia, acute kidney injury, anemia Acute, or Chronic, or Acute on Chronic? @ -Acute Uncomplicated (without systemic symptoms) or Complicated (systemic symptoms)? @ -Complicated Side effects of treatment? @ -No Exacerbation, Progression, or Severe Exacerbation? @ -No Poses a threat to life or bodily function? How? (Chest pain, [place], HI, pneumonia, PE, COPD, DKA, ARF, appy, cholecystitis, CVA, Diverticulitis, Homicidal, Suicidal, threat to staff... and all critical care pts) @ -Yes patient has bilateral pneumonia - Lab Data Result diagrams: 05/06/23 21:01 05/06/23 21:01 Lab Results 05/06/23 05/06/23 05/06/23 Range/Units 21:01 21:01 21:01 WBC 7.7 (3.8-10.6) k/uL RBC 2.89 L (4.30-5.90) m/uL Hgb 9.3 L (13.0-17.5) gm/dL Hct 25.3 L (39.0-53.0) % MCV 87.7 (80.0-100.0) fL MCH 32.3 (25.0-35.0) pg MCHC 36.9 (31.0-37.0) g/dL RDW 12.3 (11.5-15.5) % Plt Count 219 (150-450) k/uL MPV 7.8 Neutrophils % 90 % Lymphocytes % 4 % Monocytes % 5 % Eosinophils % 0 % Basophils % 0 % Neutrophils # 6.9 (1.3-7.7) k/uL Lymphocytes # 0.3 L (1.0-4.8) k/uL Monocytes # 0.4 (0-1.0) k/uL Eosinophils # 0.0 (0-0.7) k/uL Basophils # 0.0 (0-0.2) k/uL PT 11.8 (10.0-12.5) sec INR 1.1 (<1.2) APTT 36.3 H (22.0-30.0) sec Sodium (137-145) mmol/L Potassium (3.5-5.1) mmol/L Chloride (98-107) mmol/L Carbon Dioxide (22-30) mmol/L Anion Gap mmol/L BUN (9-20) mg/dL Creatinine (0.66-1.25) mg/dL Est GFR (CKD-EPI)AfAm (>60 ml/min/1.73 sqM) Est GFR (CKD-EPI)NonAf (>60 ml/min/1.73 sqM) Glucose (74-99) mg/dL Calcium (8.4-10.2) mg/dL Magnesium (1.6-2.3) mg/dL Total Bilirubin (0.2-1.3) mg/dL AST (17-59) U/L ALT (4-49) U/L Alkaline Phosphatase (38-126) U/L Troponin I (0.000-0.034) ng/mL Total Protein (6.3-8.2) g/dL Albumin (3.5-5.0) g/dL Lipase (23-300) U/L Influenza Type A (PCR) Not Detected (Not Detectd) Influenza Type B (PCR) Not Detected (Not Detectd) RSV (PCR) Not Detected (Not Detectd) SARS-CoV-2 (PCR) Not Detected (Not Detectd) 05/06/23 05/06/23 Range/Units 21:01 21:01 WBC (3.8-10.6) k/uL RBC (4.30-5.90) m/uL Hgb (13.0-17.5) gm/dL Hct (39.0-53.0) % MCV (80.0-100.0) fL MCH (25.0-35.0) pg MCHC (31.0-37.0) g/dL RDW (11.5-15.5) % Plt Count (150-450) k/uL MPV Neutrophils % % Lymphocytes % % Monocytes % % Eosinophils % % Basophils % % Neutrophils # (1.3-7.7) k/uL Lymphocytes # (1.0-4.8) k/uL Monocytes # (0-1.0) k/uL Eosinophils # (0-0.7) k/uL Basophils # (0-0.2) k/uL PT (10.0-12.5) sec INR (<1.2) APTT (22.0-30.0) sec Sodium 134 L (137-145) mmol/L Potassium 3.0 L (3.5-5.1) mmol/L Chloride 102 (98-107) mmol/L Carbon Dioxide 19 L (22-30) mmol/L Anion Gap 13 mmol/L BUN 59 H (9-20) mg/dL Creatinine 3.21 H (0.66-1.25) mg/dL Est GFR (CKD-EPI)AfAm 21 (>60 ml/min/1.73 sqM) Est GFR (CKD-EPI)NonAf 18 (>60 ml/min/1.73 sqM) Glucose 168 H (74-99) mg/dL Calcium 8.5 (8.4-10.2) mg/dL Magnesium 1.5 L (1.6-2.3) mg/dL Total Bilirubin 1.0 (0.2-1.3) mg/dL AST 23 (17-59) U/L ALT 15 (4-49) U/L Alkaline Phosphatase 75 (38-126) U/L Troponin I 0.061 H* (0.000-0.034) ng/mL Total Protein 6.5 (6.3-8.2) g/dL Albumin 3.1 L (3.5-5.0) g/dL Lipase 30 (23-300) U/L Influenza Type A (PCR) (Not Detectd) Influenza Type B (PCR) (Not Detectd) RSV (PCR) (Not Detectd) SARS-CoV-2 (PCR) (Not Detectd) - EKG Data -: EKG Interpreted by [facility] EKG Comments: EKG performed at 22:04 sinus rhythm rate of 79 DC 151/86 QT /QTC 388/423 Disposition Clinical Impression: Vomiting, Bilateral pneumonia, Acute kidney injury, Hypokalemia, Hypomagnesemia, Elevated troponin, Anemia Disposition: ADMITTED IP TO THIS HOSP Condition: Poor Referrals: Martir Bro MD [REFERRING] - 1-2 days Time of Disposition: 22:33
[2023-05-06 21:31] LABS: Basophils % (A) 0 %; Eosinophils % (A) 0 %; HCT 25.3 % (39.0-53.0); HGB 9.3 gm/dL (13.0-17.5); Lymphocytes # (A) 0.3 k/uL (1.0-4.8); Lymphocytes % (A) 4 %; MCH 32.3 pg (25.0-35.0); MCHC 36.9 g/dL (31.0-37.0); MCV 87.7 fL (80.0-100.0); Mean Platelet Volume 7.8; Monocytes # (A) 0.4 k/uL (0-1.0); Monocytes % (A) 5 %; Neutrophils # (A) 6.9 k/uL (1.3-7.7); Neutrophils % (A) 90 %; Platelet Count 219 k/uL (150-450); RBC 2.89 m/uL (4.30-5.90); RDW 12.3 % (11.5-15.5); WBC 7.7 k/uL (3.8-10.6)
[2023-05-06 21:39] LABS: ALT 15 U/L (4-49); AST 23 U/L (17-59); African American GFR (CKD) 21 (>60 ml/min/1.73 sqM); Albumin 3.1 g/dL (3.5-5.0); Alkaline Phosphatase 75 U/L (38-126); Anion Gap 13 mmol/L; Blood Urea Nitrogen 59 mg/dL (9-20); Calcium 8.5 mg/dL (8.4-10.2); Carbon Dioxide 19 mmol/L (22-30); Chloride 102 mmol/L (98-107); Glucose 168 mg/dL (74-99); Lipase 30 U/L (23-300); Magnesium 1.5 mg/dL (1.6-2.3); Non-African American GFR(CKD) 18 (>60 ml/min/1.73 sqM); Sodium 134 mmol/L (137-145); Total Protein 6.5 g/dL (6.3-8.2)
[2023-05-06] MEDS ORDERED: ACETAMINOPHEN TAB 325 MG TAB PO STA (21:41)
[2023-05-06 21:45] LABS: INR 1.1 (<1.2); Partial Thromboplastin Time 36.3 sec (22.0-30.0); Prothrombin Time 11.8 sec (10.0-12.5)
--- NOTE | 2023-05-06 21:57 | XR ---
EXAMINATION TYPE: XR chest 2V DATE OF EXAM: 05/06/2023 COMPARISON: 06/26/2021 INDICATION: Left upper quadrant pain with vomiting TECHNIQUE: Frontal and lateral views of the chest are obtained. FINDINGS: The heart size is normal. The pulmonary vasculature is normal. There is a infiltrate in the periphery of the left upper lung field. Correlate for pneumonia. Follow- up is recommended. Mild infiltrate may be at the right base.. IMPRESSION: 1. Left upper lobe infiltrate. Correlate for pneumonia. Follow-up is recommended. 2. Small right lower lobe infiltrate may be present.
[2023-05-06] MEDS ORDERED: AZITHROMYCIN 500 MG in SODIUM CHLORIDE 0.9% 250 ML IVPB STA (22:08)
[2023-05-06] MEDS: SODIUM CHLORIDE 0.9% 1,000 ML IV SCH (22:15)
[2023-05-06] MEDS ORDERED: MAGNESIUM OXIDE 400 MG TAB PO STA (22:28)
[2023-05-06] MEDS ORDERED: POTASSIUM CHLORIDE ER 20 MEQ TAB.ER PO STA (22:28)
[2023-05-06] MEDS ORDERED: IPRATROPIUM-ALBUTEROL 3 ML NEB INHALATION PRN (22:33)
[2023-05-06] MEDS ORDERED: ACETAMINOPHEN TAB 325 MG TAB PO PRN (22:33)
[2023-05-06] MEDS ORDERED: PNEUMONIA PROTOCOL UTILIZED 1 EACH MISC PO PRN (22:33)
[2023-05-07 01:15] LABS: Amorphous Sediment,Urine Occasional /hpf; Appearance,Urine Cloudy (Clear); Bilirubin,Urine Negative (Negative); Blood,Urine Moderate (Negative); Color,Urine Yellow; Glucose,Urine (UA) Negative (Negative); Hyaline Casts,Urine 5 /lpf (0-2); Ketones,Urine Negative (Negative); Leukocyte Esterase,Urine Small (Negative); Mucus,Urine Rare /hpf; Nitrite,Urine Negative (Negative); PH, Urine 5.5 (5.0-8.0); Protein,Urine 1+ (Negative); RBC,Urine 6 /hpf (0-5); Specific Gravity,Urine 1.012 (1.001-1.035); Squamous Epithelial Cell,Urine <1 /hpf (0-4); Urobilinogen,Urine <2.0 mg/dL (<2.0); WBC,Urine 15 /hpf (0-5)
--- NOTE | 2023-05-07 03:04 | P.HPIM ---
History of Present Illness H&P Date: 05/07/23 Patient is a 72-year-old male with a PMH of systolic CHF (EF 45-50% on echo on 08/21), hypertension, hyperlipidemia who presents to the emergency room with complaints of fever, productive cough, and left-sided chest pain. Patient reports her symptoms started 2 days ago. Reports the chest discomfort is left- sided and nonpleuritic, constant, with no alleviating or exacerbating features. Denied nausea, vomiting, abdominal pain, diarrhea. In the emergency room, chest x-ray revealed a left upper lobe infiltrate concerning for pneumonia with a small right lower lobe infiltrate as well. EKG revealed sinus rhythm at [address]/T-wave changes are as reviewed by me. Laboratory evaluation was remarkable for hemoglobin 9.3 (previously 13 in 2020), sodium 134, potassium 3.0, BUN 59, creatinine 3.21 (baseline 1.5), troponin 0.061, with negative influenza, COVID 19, and RSV testing. T-max in the emergency room was 100.1F. ED documentation reviewed and case discussed with ED provider. Review of systems: Pertinent positives and negatives as discussed in HPI, a complete review of systems was performed and all other systems are negative. Physical examination: Vital signs reviewed General: non toxic, no distress, appears at stated age, normal weight Derm: no unusual rashes/lesions, warm Head: atraumatic, normocephalic, symmetric Eyes: EOMI, no lid lag, anicteric sclera, pupils equal round reactive to light ENT: Nose and ears atraumatic Neck: No cervical lymphadenopathy, trachea midline, supple Mouth: no lip lesion, mucus membranes moist Cardiovascular: S1S2 reg, no murmur, positive dorsalis pedis pulse bilateral, no edema Lungs: CTA bilateral, no rhonchi, no rales, no accessory muscle use Abdominal: soft, nontender to palpation, no guarding Ext: muscle strength 5 out of 5 in all 4 extremities grossly, no gross muscle atrophy, no contractures, Neuro: CN II-XI grossly intact, no gross focal neuro deficits Psych: Alert, oriented, appropriate affect Assessment: Community acquired pneumonia Normocytic anemia Acute kidney injury on chronic kidney disease, suspect to dehydration Elevated troponin Hypokalemia Hyponatremia Imaging: In the emergency room, chest x-ray revealed a left upper lobe infiltrate concerning for pneumonia with a small right lower lobe infiltrate as well. EKG revealed sinus rhythm at [address]/T-wave changes are as reviewed by me. Data Review: Laboratory evaluation was remarkable for hemoglobin 9.3 (previously 13 in 2020), sodium 134, potassium 3.0, BUN 59, creatinine 3.21 (baseline 1.5), troponin 0.061, with negative influenza, COVID 19, and RSV testing. T-max in the emergency room was 100.1F. Plan: Continue ceftriaxone and azithromycin Suspect elevated troponin due to ongoing pneumonia, trend for now Cardiac monitoring Replace potassium Continue with IV fluids for ongoing acute kidney injury DVT prophylaxis: Lovenox subcu The patient is admitted with an anticipated greater than 2 midnight stay for evaluation of community acquired pneumonia CODE STATUS: Full Code Discussed with: Patient Anticipated discharge place: Home Past Medical History Past Medical History: Heart Failure, Hyperlipidemia, Hypertension, Renal Disease Additional Past Medical History / Comment(s): Cardiomyopathy, History of Any Multi-Drug Resistant Organisms: None Reported Past Surgical History: No Surgical Hx Reported Past Anesthesia/Blood Transfusion Reactions: Unable to Obtain Additional Past Anesthesia/Blood Transfusion Reaction / Comment(s): Pt states he has never had surgery. Past Psychological History: No Psychological Hx Reported Smoking Status: Current every day smoker Past Alcohol Use History: None Reported Past Drug Use History: None Reported - Past Family History Father Family Medical History: Diabetes Mellitus, Myocardial Infarction ([place]) Additional Family Medical History / Comment(s): Had leg amputation Mother History Unknown: Yes Family Medical History: No Reported History Sister(s) Family Medical History: Diabetes Mellitus Additional Family Medical History / Comment(s): 1 sister had arm amputated due to diabetes Medications and Allergies Home Medications Medication Instructions Recorded Confirmed Type Atorvastatin [Lipitor] 40 mg PO HS #30 tab 08/17/20 05/06/23 Rx Isosorbide Mononitrate ER [Imdur] 60 mg PO DAILY #30 tab.er.24h 08/17/20 05/06/23 Rx Metoprolol Tartrate [Lopressor] 50 mg PO BID #60 tab 08/17/20 05/06/23 Rx amLODIPine [Norvasc] 10 mg PO DAILY #30 tab 08/17/20 05/06/23 Rx Aspirin EC [Ecotrin Low Dose] 81 mg PO DAILY 06/26/21 05/06/23 History Torsemide [Demadex] 20 mg PO BID 05/06/23 05/06/23 History hydrALAZINE HCL [Apresoline] 100 mg PO TID 05/06/23 05/06/23 History Allergies Allergy/AdvReac Type Severity Reaction Status Date / Time No Known Allergies Allergy Verified 05/06/23 20:29 Physical Exam Vitals: Vital Signs Temp Pulse Resp BP Pulse Ox 05/06/23 23:46 98.6 F 67 18 100/53 98 05/06/23 20:25 100.1 F H 73 17 104/60 95 Intake and Output 05/06/23 05/06/23 05/07/23 14:59 22:59 06:59 Other: Weight 85.729 kg Results CBC & Chem 7: 05/06/23 21:01 05/06/23 21:01 Labs: Abnormal Lab Results - Last 24 Hours (Table) 05/06/23 05/06/23 05/06/23 Range/Units 21:01 21:01 21:01 RBC 2.89 L (4.30-5.90) m/uL Hgb 9.3 L (13.0-17.5) gm/dL Hct 25.3 L (39.0-53.0) % Lymphocytes # 0.3 L (1.0-4.8) k/uL APTT 36.3 H (22.0-30.0) sec Sodium 134 L (137-145) mmol/L Potassium 3.0 L (3.5-5.1) mmol/L Carbon Dioxide 19 L (22-30) mmol/L BUN 59 H (9-20) mg/dL Creatinine 3.21 H (0.66-1.25) mg/dL Glucose 168 H (74-99) mg/dL Magnesium 1.5 L (1.6-2.3) mg/dL Troponin I (0.000-0.034) ng/mL Albumin 3.1 L (3.5-5.0) g/dL Urine Protein (Negative) Urine Blood (Negative) Ur Leukocyte Esterase (Negative) Urine RBC (0-5) /hpf Urine WBC (0-5) /hpf Amorphous Sediment (None) /hpf Hyaline Casts (0-2) /lpf Urine Mucus (None) /hpf 05/06/23 05/07/23 Range/Units 21:01 00:45 RBC (4.30-5.90) m/uL Hgb (13.0-17.5) gm/dL Hct (39.0-53.0) % Lymphocytes # (1.0-4.8) k/uL APTT (22.0-30.0) sec Sodium (137-145) mmol/L Potassium (3.5-5.1) mmol/L Carbon Dioxide (22-30) mmol/L BUN (9-20) mg/dL Creatinine (0.66-1.25) mg/dL Glucose (74-99) mg/dL Magnesium (1.6-2.3) mg/dL Troponin I 0.061 H* (0.000-0.034) ng/mL Albumin (3.5-5.0) g/dL Urine Protein 1+ H (Negative) Urine Blood Moderate H (Negative) Ur Leukocyte Esterase Small H (Negative) Urine RBC 6 H (0-5) /hpf Urine WBC 15 H (0-5) /hpf Amorphous Sediment Occasional H (None) /hpf Hyaline Casts 5 H (0-2) /lpf Urine Mucus Rare H (None) /hpf
[2023-05-07 03:29] LABS: HCT 23.6 % (39.0-53.0); HGB 8.5 gm/dL (13.0-17.5); MCHC 35.8 g/dL (31.0-37.0); MCV 89.2 fL (80.0-100.0); Platelet Count 210 k/uL (150-450); RBC 2.65 m/uL (4.30-5.90); RDW 12.9 % (11.5-15.5)
[2023-05-07 03:41] LABS: African American GFR (CKD) 22 (>60 ml/min/1.73 sqM); Anion Gap 13 mmol/L; Blood Urea Nitrogen 60 mg/dL (9-20); Calcium 8.4 mg/dL (8.4-10.2); Carbon Dioxide 20 mmol/L (22-30); Chloride 102 mmol/L (98-107); Glucose 160 mg/dL (74-99); Non-African American GFR(CKD) 19 (>60 ml/min/1.73 sqM); Potassium 3.7 mmol/L (3.5-5.1); Sodium 135 mmol/L (137-145)
--- NOTE | 2023-05-07 08:55 | XR ---
EXAMINATION TYPE: XR chest 2V DATE OF EXAM: 05/07/2023 COMPARISON: 05/06/2023 TECHNIQUE: PA and lateral views submitted. HISTORY: Cough FINDINGS: A left upper lobe area of consolidation. Heart size normal. Underlying COPD. Arthropathy of the shoul ders. Hypertrophic and degenerative change of the spine. IMPRESSION: 1. Left upper lobe pneumonia. Follow to resolution to exclude other etiologies.
[2023-05-07] MEDS ORDERED: ENOXAPARIN 40 MG/0.4 ML SYRINGE SQ SCH (09:00)
--- NOTE | 2023-05-07 09:07 | CONS ---
CONSULTATION CHIEF COMPLAINT: Nausea, vomiting, cough, and left-sided chest discomfort. HISTORY OF PRESENT ILLNESS: The patient has history of chronic systolic heart failure, valvular heart disease, hypertension, and dyslipidemia, who presented to hospital with 2 days' history of recurrent bouts of vomiting, low-grade fever, and not feeling well and along the way also complained of chest discomfort. I have been consulted for the same. The patient is currently being treated for possible pneumonia. An EKG shows sinus rhythm with nonspecific ST-T wave changes. His chest discomfort seems musculoskeletal. He has mild troponin elevation, which could be due to underlying renal failure. The patient's creatinine is 3, BUN is 60. The patient has history of chronic renal insufficiency and there is definitely an acute exacerbation of the same. He is negative for coronavirus and he is also negative for influenza, T-max on this admission was 100.1. PAST MEDICAL HISTORY: Significant for congestive heart failure and hypertension. MEDICATIONS: At home include, 1. Apresoline 100 t.i.d. 2. Norvasc 10 daily. 3. Demadex 20 b.i.d. 4. Lopressor 50 b.i.d. 5. Imdur 60 daily. 6. Aspirin. 7. Lipitor. ALLERGIES: There are no known drug allergies. FAMILY HISTORY: Negative for premature coronary artery disease. SOCIAL HISTORY: Denies current smoking, EtOH abuse, or drug abuse. REVIEW OF SYSTEMS: A review of systems has been performed, pertinents are as documented. PHYSICAL EXAMINATION: VITAL SIGNS: Heart rate is 77 beats per minute, afebrile, blood pressure is 140/70, respiratory rate is 18, and O2 saturation is 96% on room air. NECK: There is no jugular venous distention. Carotid upstroke is normal. There is no bruit. CHEST: Reveals occasional rhonchi bilaterally. HEART: Reveals first and second heart sounds. There is 4/6 ejection systolic murmur in the aortic area. ABDOMEN: Soft. EXTREMITIES: Bilateral moderate edema and peripheral pulses are palpable. LABORATORY DATA: Labs show a hemoglobin of 8.5, platelet count is 210, potassium is 3.7, BUN is 60, creatinine is 3. Troponins are mildly elevated at of 0.06 and 0.05. ASSESSMENT: 1. Elevated troponin probably related to underlying renal failure. 2. Atypical chest pain, probably musculoskeletal. 3. Acute on chronic renal failure. 4. Valvular heart disease. 5. Hypertension. 6. History of congestive heart failure. PLAN: The patient is currently being treated with antibiotics for possible pneumonia diagnosed by the primary care physician. From cardiac standpoint, I will obtain a 2D echo for further evaluation of his valvular heart disease and to reassess his LV function. We will resume his home medications including aspirin, Lipitor, Imdur, and metoprolol. We will consult Nephrology given the renal failure and further recommendations to follow based on how his symptoms evolve. MMODL / IJN: [id number] /
[2023-05-07 09:15] LABS: % Iron Saturation 5.81 (15.00-50.00)
[2023-05-07] MEDS ORDERED: hydrALAZINE HCL 50 MG TAB PO SCH (09:15)
[2023-05-07] MEDS: ISOSORBIDE MONONITRATE ER 60 MG TAB.ER.24H PO SCH (09:16)
[2023-05-07] MEDS: ASPIRIN 81 MG PO SCH (09:16)
[2023-05-07] MEDS: METOPROLOL TARTRATE 50 MG TAB PO SCH ×2 (09:17→20:17)
[2023-05-07] MEDS: HEPARIN SODIUM,PORCINE 5,000 UNIT/ML 1 ML VIAL SQ SCH ×2 (09:17→15:55)
[2023-05-07] MEDS: amLODIPine 10 MG TAB PO SCH (09:17)
[2023-05-07] MEDS: SODIUM CHLORIDE 0.9% 1,000 ML IV SCH ×2 (09:19→17:14)
--- NOTE | 2023-05-07 10:04 | P.PN ---
Subjective Progress Note Date: 05/07/23 Objective - Vital Signs Vital signs: Vital Signs Temp 98.7 F 05/07/23 06:00 Pulse 77 05/07/23 06:00 Resp 20 05/07/23 06:00 BP 141/71 05/07/23 06:00 Pulse Ox 94 L 05/07/23 08:44 FiO2 Intake & Output 05/06/23 05/07/23 05/07/23 18:59 06:59 18:59 Weight 85.729 kg - Labs CBC & Chem 7: 05/07/23 03:15 05/07/23 03:15 Labs: Abnormal Lab Results - Last 24 Hours (Table) 05/06/23 05/06/23 05/06/23 Range/Units 21:01 21:01 21:01 RBC 2.89 L (4.30-5.90) m/uL Hgb 9.3 L (13.0-17.5) gm/dL Hct 25.3 L (39.0-53.0) % Lymphocytes # 0.3 L (1.0-4.8) k/uL APTT 36.3 H (22.0-30.0) sec Sodium 134 L (137-145) mmol/L Potassium 3.0 L (3.5-5.1) mmol/L Carbon Dioxide 19 L (22-30) mmol/L BUN 59 H (9-20) mg/dL Creatinine 3.21 H (0.66-1.25) mg/dL Glucose 168 H (74-99) mg/dL Magnesium 1.5 L (1.6-2.3) mg/dL Troponin I (0.000-0.034) ng/mL Albumin 3.1 L (3.5-5.0) g/dL Urine Protein (Negative) Urine Blood (Negative) Ur Leukocyte Esterase (Negative) Urine RBC (0-5) /hpf Urine WBC (0-5) /hpf Amorphous Sediment (None) /hpf Hyaline Casts (0-2) /lpf Urine Mucus (None) /hpf 05/06/23 05/07/23 05/07/23 Range/Units 21:01 00:45 03:15 RBC 2.65 L (4.30-5.90) m/uL Hgb 8.5 L (13.0-17.5) gm/dL Hct 23.6 L (39.0-53.0) % Lymphocytes # (1.0-4.8) k/uL APTT (22.0-30.0) sec Sodium (137-145) mmol/L Potassium (3.5-5.1) mmol/L Carbon Dioxide (22-30) mmol/L BUN (9-20) mg/dL Creatinine (0.66-1.25) mg/dL Glucose (74-99) mg/dL Magnesium (1.6-2.3) mg/dL Troponin I 0.061 H* (0.000-0.034) ng/mL Albumin (3.5-5.0) g/dL Urine Protein 1+ H (Negative) Urine Blood Moderate H (Negative) Ur Leukocyte Esterase Small H (Negative) Urine RBC 6 H (0-5) /hpf Urine WBC 15 H (0-5) /hpf Amorphous Sediment Occasional H (None) /hpf Hyaline Casts 5 H (0-2) /lpf Urine Mucus Rare H (None) /hpf 05/07/23 05/07/23 Range/Units 03:15 03:23 RBC (4.30-5.90) m/uL Hgb (13.0-17.5) gm/dL Hct (39.0-53.0) % Lymphocytes # (1.0-4.8) k/uL APTT (22.0-30.0) sec Sodium 135 L (137-145) mmol/L Potassium (3.5-5.1) mmol/L Carbon Dioxide 20 L (22-30) mmol/L BUN 60 H (9-20) mg/dL Creatinine 3.04 H (0.66-1.25) mg/dL Glucose 160 H (74-99) mg/dL Magnesium (1.6-2.3) mg/dL Troponin I 0.055 H* (0.000-0.034) ng/mL Albumin (3.5-5.0) g/dL Urine Protein (Negative) Urine Blood (Negative) Ur Leukocyte Esterase (Negative) Urine RBC (0-5) /hpf Urine WBC (0-5) /hpf Amorphous Sediment (None) /hpf Hyaline Casts (0-2) /lpf Urine Mucus (None) /hpf
--- NOTE | 2023-05-07 10:18 | US ---
EXAMINATION TYPE: US kidneys/renal and bladder DATE OF EXAM: 05/07/2023 COMPARISON: Renal ultrasound 08/15/2020 CLINICAL INDICATION: Male, 72 years old with history of VANIA; vania EXAM MEASUREMENTS: Right Kidney: 11.5 x 5.3 x 4.1 cm Left Kidney: 9.5 x 4.6 x 2.5 cm Right Kidney: No hydronephrosis or masses seen Left Kidney: Hypoechoic area lower pole 2.1 x 3.7 x 3.5 cm with blood flow. Bladder: Anechoic Bilateral Jets seen: Yes No hydronephrosis or nephrolithiasis. No solid right renal mass. Questionable left renal lower pole m ass versus parenchyma. Corticomedullary differentiation is maintained bilaterally. The bladder is ane choic. Bilateral ureteral jets identified. IMPRESSION: 1. No hydronephrosis or nephrolithiasis. 2. Questionable left renal lower pole mass versus parenchyma. Consider further evaluation with CT or MR abdomen renal mass protocol.
--- NOTE | 2023-05-07 12:48 | CA ---
Transthoracic Echo Report Name: Nadeem Moreno Age: 72 Gender: M : 1950 Exam Date: 05/07/2023 10:22 Exam Location: [place] [facility] Ht (in): 66 Wt (lb): 189 Ordering Physician: Connor Haddad MD ([id number]) Attending/Referring Phys: Boo RANDHAWA Staff Internist Office Based Only Debby Blily RDCS Procedure CPT: Indications: CP Cardiac Hx: Technical Quality: Technically difficult study Contrast 1: Definity Total Dose (mL): 2 Contrast 2: Total Dose (mL): MEASUREMENTS (Male / Female) Normal Values 2D ECHO LV Diastolic Diameter PLAX 3.5 cm 4.2 - 5.9 / 3.9 - 5.3 cm LV Systolic Diameter PLAX 2.1 cm IVS Diastolic Thickness 1.5 cm 0.6 - 1.0 / 0.6 - 0.9 cm LVPW Diastolic Thickness 1.5 cm 0.6 - 1.0 / 0.6 - 0.9 cm LV Relative Wall Thickness 0.9 RV Internal Dim ED PLAX 4.1 cm LA Volume 72.2 cm??? 18 - 58 / 22 - 52 cm??? LA Volume Index 35.7 cm???/m??? 16 - 28 cm???/m??? M-MODE Aortic Root Diameter MM 3.2 cm LA Systolic Diameter MM 3.9 cm LA Ao Ratio MM 1.2 AV Cusp Separation MM 1.5 cm DOPPLER AV Peak Velocity 259.9 cm/s AV Peak Gradient 27.0 mmHg AV Mean Velocity 182.6 cm/s AV Mean Gradient 15.3 mmHg AV Velocity Time Integral 59.4 cm LVOT Peak Velocity 129.2 cm/s LVOT Peak Gradient 6.7 mmHg LVOT Velocity Time Integral 34.5 cm MV Area PHT 3.5 cm??? Mitral E Point Velocity 110.7 cm/s Mitral A Point Velocity 100.2 cm/s Mitral E to A Ratio 1.1 MV Deceleration Time 218.7 ms MV E' Velocity 9.8 cm/s Mitral E to MV E' Ratio 11.3 FINDINGS Left Ventricle Moderately increased left ventricular wall thickness. Left ventricular cavity size normal. Normal left ventricular systolic function with no obvious regional wall motion abnormalities. Left ventricular ejection fraction is estimated at 55-60 %. Right Ventricle Right ventricular dilatation. Right Atrium Right atrium not well visualized. Left Atrium Moderately increased left atrial volume. Mildly increased left atrial area. Mitral Valve Mitral valve thickened. Mild mitral annular calcification. [id number] mitral regurgitation. Aortic Valve Mild aortic stenosis with a peak gradient of 27 mmHg and a mean gradient of 15 mmHg.aortic valve not well visualized. Tricuspid Valve Mild tricuspid regurgitation.structurally normal tricuspid valve. Pulmonic Valve Pulmonic valve not well visualized. Pericardium No pericardial effusion. Aorta Normal size aortic root and proximal ascending aorta. CONCLUSIONS Technically difficult study. Definity ECHO contrast used for improved visualization of the endocardial borders (inadequate visualization of two or more contiguous segments). 1. Normal left ventricle size and systolic function 2. Mild to moderate mitral with mild tricuspid regurgitation 3. Mild aortic stenosis Previewed by: Dr. Emmie Garber MD (Electronically Signed) Final Date: 07 May 2023 12:48
--- NOTE | 2023-05-07 12:53 | P.NPCON ---
History of Present Illness - Reason for Consult acute renal failure - History of Present Illness Patient is a 72-year-old male with history of hypertension, CHF with EF 45-50%. He is admitted to the hospital with complaints of fever cough and left-sided chest pain. Temperature was 100.1F here. Chest x-ray shows left upper lobe pneumonia. Patient states that he was informed a few years ago that he had week kidney function but has not seen a sprinkler tender previously. Serum creatinine 3.2 on admission and decreased to 3.0 today. Previous creatinine 1.5 in 2020. Receiving IV fluids Patient states that he has been voiding. Ultrasound shows no evidence of obstruction. Blood pressure has been on the lower side with systolic 100-10 4 mmHg. Not maintained on KARIS inhibitor's or ARBs or NSAIDs Review of Systems As per HPI Past Medical History Past Medical History: Heart Failure, Hyperlipidemia, Hypertension, Renal Disease Additional Past Medical History / Comment(s): Cardiomyopathy, History of Any Multi-Drug Resistant Organisms: None Reported Past Surgical History: No Surgical Hx Reported Past Anesthesia/Blood Transfusion Reactions: Unable to Obtain Additional Past Anesthesia/Blood Transfusion Reaction / Comment(s): Pt states he has never had surgery. Past Psychological History: No Psychological Hx Reported Smoking Status: Current every day smoker Past Alcohol Use History: None Reported Past Drug Use History: None Reported - Past Family History Father Family Medical History: Diabetes Mellitus, Myocardial Infarction ([place]) Additional Family Medical History / Comment(s): Had leg amputation Mother History Unknown: Yes Family Medical History: No Reported History Sister(s) Family Medical History: Diabetes Mellitus Additional Family Medical History / Comment(s): 1 sister had arm amputated due to diabetes Medications and Allergies Home Medications Medication Instructions Recorded Confirmed Type Atorvastatin [Lipitor] 40 mg PO HS #30 tab 08/17/20 05/06/23 Rx Isosorbide Mononitrate ER [Imdur] 60 mg PO DAILY #30 tab.er.24h 08/17/20 05/06/23 Rx Metoprolol Tartrate [Lopressor] 50 mg PO BID #60 tab 08/17/20 05/06/23 Rx amLODIPine [Norvasc] 10 mg PO DAILY #30 tab 08/17/20 05/06/23 Rx Aspirin EC [Ecotrin Low Dose] 81 mg PO DAILY 06/26/21 05/06/23 History Torsemide [Demadex] 20 mg PO BID 05/06/23 05/06/23 History hydrALAZINE HCL [Apresoline] 100 mg PO TID 05/06/23 05/06/23 History Allergies Allergy/AdvReac Type Severity Reaction Status Date / Time No Known Allergies Allergy Verified 05/06/23 20:29 Physical Exam Vitals: Vital Signs Temp Pulse Resp BP Pulse Ox 05/07/23 12:00 70 18 119/65 97 05/07/23 09:59 75 16 131/74 98 05/07/23 09:00 98.6 F 86 16 131/74 98 05/07/23 08:44 94 L 05/07/23 06:00 98.7 F 77 20 141/71 96 05/07/23 05:00 80 19 146/77 97 05/07/23 04:30 76 17 146/77 98 05/07/23 03:30 72 16 119/65 97 05/07/23 03:00 70 17 116/66 99 05/07/23 01:30 66 18 108/66 97 05/07/23 00:30 64 16 102/56 98 05/07/23 00:00 66 16 100/53 98 05/06/23 23:46 98.6 F 67 18 100/53 98 05/06/23 20:25 100.1 F H 73 17 104/60 95 Intake and Output 05/06/23 05/07/23 05/07/23 22:59 06:59 14:59 Other: Weight 85.729 kg Patient is awake, comfortable, no acute distress Examination of the heart S1 and S2 Examination the lungs decreased breath sounds at the bases Abdomen is soft nontender Examination of lower extremities shows no significant edema QUALITY AND RELIABILITY ENGINEER exam grossly intact Results - Lab Results Most recent lab results Calcium 8.4 mg/dL (8.4-10.2) 05/07/23 03:15 Magnesium 1.5 mg/dL (1.6-2.3) L 05/06/23 21:01 05/07/23 03:15 05/07/23 03:15 Assessment and Plan Assessment: 1. Acute kidney injury mostly ATN currently nonoliguric. No evidence of obstruction on ultrasound. UA shows 1+ protein and moderate blood WBCs 15 2. Chronic kidney disease NKF stage III a with previous creatinine around 1.5 mg/dL on 06/27/2021. Etiology is likely nephrosclerosis 3. Community-acquired pneumonia maintained on ceftriaxone and azithromycin 4. Hypertension with CK D stage III 5. Possible left renal lower pole mass noted on ultrasound. Will need further evaluation on CT. This can be done as outpatient Plan: Continue IV fluids Decrease dose of hydralazine Continue antibiotics Repeat labs in a.m. Avoid nephrotoxic agents Avoid hypotension Patient will need follow-up as outpatient for C daily. Thank you for the consultation. We will continue to follow the patient with you during his hospitalization.
--- NOTE | 2023-05-07 14:13 | P.PN ---
Subjective Progress Note Date: 05/07/23 Hospital course: Patient is a very pleasant 72-year-old male with a past medical history of nonischemic cardiomyopathy, HFrEF with previously known EF of 45-50%, hypertension, hyperlipidemia, nicotine dependence, and chronic kidney disease. He presented to the emergency department on 05/06/23 secondary to complaints of fever, cough, and left-sided chest pain. Patient underwent full evaluation in the emergency department. Labs completed and reviewed. CBC showing normocytic anemia with hemoglobin 9.3. Coagulation profile showing slightly elevated PTT of 36.3. BMP revealing hypernatremia with sodium 134, hypokalemia with potassium of 3.0, and hypocarbia with bicarb of 19. BMP showing an acute kidney injury with BUN of 59, creatinine 3.21, and GFR of 18 with baseline creatinine of 1.5. Troponin was elevated at 0.061. Urinalysis positive for ketones, protein, 6 RBCs, and 15 WBCs. Influenza A, influenza B, RSV, and Covid PCR were negative. EKG was completed showing normal sinus rhythm at 79 bpm. Chest x-ray revealing left upper lobe infiltrate concerning for pneumonia. Patient was started on IV antibiotics for treatment of community-acquired pneumonia with azithromycin and Rocephin. He was also placed on gentle IV fluid hydration for treatment of his acute kidney injury. Physical exam: Vital signs reviewed and stable. General: Nontoxic, no distress and appears stated age. Derm: Skin warm and dry, normal coloration for ethnicity. Head: Atraumatic, normocephalic and symmetric. Eyes: EOMs intact, no lid lag, and anicteric sclera Mouth: no lip lesions, mucus membranes moist Cardiovascular: regular rate and rhythm with normal S1S2, systolic murmur, positive posterior tibial pulses bilaterally, and cap refill < 2 seconds. Lungs: Respirations even, regular, and unlabored on room air. Lungs diminished. Abdominal: soft, nontender to palpation, no guarding, no appreciable organomegaly Ext: ROM intact. No gross muscle atrophy, trace bilateral lower extremity edema, no contractures Neuro: Speech clear, face symmetrical and CN II-XII grossly intact with no noted focal neuro deficits Psych: Alert and oriented to person, place, time, and situation. Appropriate and pleasant affect. Assessment and Plan of Care: Community-acquired pneumonia Acute kidney injury on chronic kidney disease Elevated troponins likely secondary to acute kidney injury Hypokalemia Hyponatremia Normocytic anemia Nonischemic cardiomyopathy HFrEF with previously known EF of 45-50% Hypertension Hyperlipidemia -Hold torsemide secondary to acute kidney injury and continue with gentle IV fluid hydration with 0.9% normal saline at 100 mL per hour. -Continue IV antibiotics with azithromycin and Rocephin day 2 of 5 of antibiotic treatment course. -Order placed for ultrasound kidneys, ureters, and bladder. -Nephrology consulted for acute kidney injury, appreciate recommendations -Patient to continue daily medication regimen with amlodipine 10 mg daily, aspirin 81 mg daily, atorvastatin 40 mg nightly, hydralazine 100 mg 3 times daily, isosorbide mononitrate 60 mg daily, and metoprolol 50 mg twice daily. -Covid, Influenza A, Influenza B, RSV and Legionella Negative. Data reviewed: Vital signs reviewed. Blood pressure 141/71, heart rate 77, respiratory rate 20, and SpO2 96% on room air. Labs completed and reviewed. CBC showing normocytic anemia with Hgb 8.5. BMP showing VANIA on CKD with BUN 60, Creatinine 3.04, and GFR 19. Troponins trended and flat at 0.061, 0.055, and 0.056. CODE STATUS: Full code DVT prophylaxis: Heparin Anticipated discharge date: Clinical course to determine Anticipated discharge place: Clinical course to determine Patient was seen independently by Nurse Pracitioner. This document was prepared using [employer] dictation software. Please allow for errors in fly finisher, while rare they do occur. Objective - Vital Signs Vital signs: Vital Signs Temp 98.6 F 05/07/23 09:00 Pulse 70 05/07/23 12:00 Resp 18 05/07/23 12:00 BP 119/65 05/07/23 12:00 Pulse Ox 97 05/07/23 12:00 FiO2 Intake & Output 05/06/23 05/07/23 05/07/23 18:59 06:59 18:59 Weight 85.729 kg - Labs CBC & Chem 7: 05/07/23 03:15 05/07/23 03:15 Labs: Abnormal Lab Results - Last 24 Hours (Table) 05/06/23 05/06/23 05/06/23 Range/Units 21:01 21:01 21:01 RBC 2.89 L (4.30-5.90) m/uL Hgb 9.3 L (13.0-17.5) gm/dL Hct 25.3 L (39.0-53.0) % Lymphocytes # 0.3 L (1.0-4.8) k/uL APTT 36.3 H (22.0-30.0) sec Sodium 134 L (137-145) mmol/L Potassium 3.0 L (3.5-5.1) mmol/L Carbon Dioxide 19 L (22-30) mmol/L BUN 59 H (9-20) mg/dL Creatinine 3.21 H (0.66-1.25) mg/dL Glucose 168 H (74-99) mg/dL Magnesium 1.5 L (1.6-2.3) mg/dL Iron (65-175) UG/DL TIBC (228-460) UG/DL % Saturation (15.00-50.00) Transferrin (204.0-354.0) mg/dL Ferritin (22.0-322.0) ng/mL Troponin I (0.000-0.034) ng/mL Albumin 3.1 L (3.5-5.0) g/dL Urine Protein (Negative) Urine Blood (Negative) Ur Leukocyte Esterase (Negative) Urine RBC (0-5) /hpf Urine WBC (0-5) /hpf Amorphous Sediment (None) /hpf Hyaline Casts (0-2) /lpf Urine Mucus (None) /hpf 05/06/23 05/07/23 05/07/23 Range/Units 21:01 00:45 03:15 RBC 2.65 L (4.30-5.90) m/uL Hgb 8.5 L (13.0-17.5) gm/dL Hct 23.6 L (39.0-53.0) % Lymphocytes # (1.0-4.8) k/uL APTT (22.0-30.0) sec Sodium (137-145) mmol/L Potassium (3.5-5.1) mmol/L Carbon Dioxide (22-30) mmol/L BUN (9-20) mg/dL Creatinine (0.66-1.25) mg/dL Glucose (74-99) mg/dL Magnesium (1.6-2.3) mg/dL Iron (65-175) UG/DL TIBC (228-460) UG/DL % Saturation (15.00-50.00) Transferrin (204.0-354.0) mg/dL Ferritin (22.0-322.0) ng/mL Troponin I 0.061 H* (0.000-0.034) ng/mL Albumin (3.5-5.0) g/dL Urine Protein 1+ H (Negative) Urine Blood Moderate H (Negative) Ur Leukocyte Esterase Small H (Negative) Urine RBC 6 H (0-5) /hpf Urine WBC 15 H (0-5) /hpf Amorphous Sediment Occasional H (None) /hpf Hyaline Casts 5 H (0-2) /lpf Urine Mucus Rare H (None) /hpf 05/07/23 05/07/23 05/07/23 Range/Units 03:15 03:15 03:23 RBC (4.30-5.90) m/uL Hgb (13.0-17.5) gm/dL Hct (39.0-53.0) % Lymphocytes # (1.0-4.8) k/uL APTT (22.0-30.0) sec Sodium 135 L (137-145) mmol/L Potassium (3.5-5.1) mmol/L Carbon Dioxide 20 L (22-30) mmol/L BUN 60 H (9-20) mg/dL Creatinine 3.04 H (0.66-1.25) mg/dL Glucose 160 H (74-99) mg/dL Magnesium (1.6-2.3) mg/dL Iron 9 L (65-175) UG/DL TIBC 155 L (228-460) UG/DL % Saturation 5.81 L (15.00-50.00) Transferrin 111.0 L (204.0-354.0) mg/dL Ferritin 472.0 H (22.0-322.0) ng/mL Troponin I 0.055 H* (0.000-0.034) ng/mL Albumin (3.5-5.0) g/dL Urine Protein (Negative) Urine Blood (Negative) Ur Leukocyte Esterase (Negative) Urine RBC (0-5) /hpf Urine WBC (0-5) /hpf Amorphous Sediment (None) /hpf Hyaline Casts (0-2) /lpf Urine Mucus (None) /hpf 05/07/23 Range/Units 08:45 RBC (4.30-5.90) m/uL Hgb (13.0-17.5) gm/dL Hct (39.0-53.0) % Lymphocytes # (1.0-4.8) k/uL APTT (22.0-30.0) sec Sodium (137-145) mmol/L Potassium (3.5-5.1) mmol/L Carbon Dioxide (22-30) mmol/L BUN (9-20) mg/dL Creatinine (0.66-1.25) mg/dL Glucose (74-99) mg/dL Magnesium (1.6-2.3) mg/dL Iron (65-175) UG/DL TIBC (228-460) UG/DL % Saturation (15.00-50.00) Transferrin (204.0-354.0) mg/dL Ferritin (22.0-322.0) ng/mL Troponin I 0.056 H* (0.000-0.034) ng/mL Albumin (3.5-5.0) g/dL Urine Protein (Negative) Urine Blood (Negative) Ur Leukocyte Esterase (Negative) Urine RBC (0-5) /hpf Urine WBC (0-5) /hpf Amorphous Sediment (None) /hpf Hyaline Casts (0-2) /lpf Urine Mucus (None) /hpf
[2023-05-07] MEDS: hydrALAZINE HCL 25 MG TAB PO SCH ×2 (15:58→20:18)
[2023-05-07] MEDS: ATORVASTATIN 40 MG TAB PO SCH (20:17)
[2023-05-07] MEDS: AZITHROMYCIN 500 MG in SODIUM CHLORIDE 0.9% 250 ML IVPB SCH (20:18)
[2023-05-08] MEDS: HEPARIN SODIUM,PORCINE 5,000 UNIT/ML 1 ML VIAL SQ SCH ×3 (00:51→17:49)
[2023-05-08] MEDS: SODIUM CHLORIDE 0.9% 1,000 ML IV SCH ×3 (05:16→21:29)
[2023-05-08] MEDS: hydrALAZINE HCL 25 MG TAB PO SCH ×3 (09:15→21:29)
[2023-05-08] MEDS: ISOSORBIDE MONONITRATE ER 60 MG TAB.ER.24H PO SCH (09:15)
[2023-05-08] MEDS: ASPIRIN 81 MG PO SCH (09:16)
[2023-05-08] MEDS: amLODIPine 10 MG TAB PO SCH (09:16)
[2023-05-08] MEDS: METOPROLOL TARTRATE 50 MG TAB PO SCH ×2 (09:16→21:29)
--- NOTE | 2023-05-08 09:43 | PN ---
PROGRESS NOTE HISTORY OF PRESENT ILLNESS: Nadeem is a 72-year-old gentleman with history of hypertension, valvular heart disease, congestive heart failure, hypertension, dyslipidemia. He is admitted to hospital with pneumonia and renal failure. An echocardiogram I performed shows normal LV systolic function, mild to moderate mitral regurgitation and mild aortic stenosis. This morning, the patient is free of chest pain. Shortness of breath has improved. He has cough and episodes of hemoptysis. His troponins are mildly elevated, but he has renal failure with a creatinine of 3. PHYSICAL EXAMINATION: GENERAL: Comfortable at rest. VITAL SIGNS: Stable. CHEST: Exam reveals occasional rhonchi bilaterally. HEART: Exam reveals first and second heart sounds, ejection systolic murmur at the right parasternal border. ABDOMEN: Soft. EXTREMITIES: Exam of extremities did not reveal any edema. Peripheral pulses are felt. LABORATORY DATA: Labs today show that the hemoglobin is 8.5. Potassium is 3.7, creatinine is 3. Three sets of troponins are mildly elevated. ASSESSMENT: 1. Pneumonia. 2. Multivalvular heart disease. 3. Elevated troponin secondary to renal failure. PLAN: The patient will continue antibiotics, aspirin, Lipitor, Norvasc, Apresoline, Imdur, and Lopressor that he is on. Hopefully go home over the next 48 hours if his symptoms improve. MMODL / IJN: [id number] /
--- NOTE | 2023-05-08 10:55 | CDI ---
Documentation Clarification Form Date: 05/08/2023 10:37:19 AM From: Marleny Alan RN CCDS Phone: [phone] Admit Date: 05/06/2023 11:19:00 PM Patient Name: Nadeem Moreno Visit Number: [id number] Discharge Date: ATTENTION: The Clinical Documentation Specialists (CDI) and [facility] Coding Staff appreciate your assistance in clarifying documentation. Please respond to the clarification below the line at the bottom and electronically sign. The CDI & [facility] Coding staff will review the response and follow-up if needed. Please note: Queries are made part of the Legal Health Record. If you have any questions, please contact the author of this message via ITS. Dr. Connor Haddad Elevated troponin secondary to renal failure is documented 05/08, Cardiology note. Additional clarification regarding the elevated troponin is requested. Patient History/Risk Factors: 72-year-old Male presents with fever, cough and left sided chest pain. Medical History: Heart failure, HLD, HTN and Renal Disease. 05/07, H&P. Clinical Indicators: Troponin: 0.061; 0.055; 0.056 EKG Results, 05/06: Sinus rhythm, Moderate ST Depression. Cr, 05/06: 3.21 Nephrology consult, 05/07: Acute kidney injury mostly ATN currently nonoliguric. Chronic kidney disease NKF stage III a with previous creatinine around 1.5mg/dl on 06/27/2021. Treatment: 05/06 0.9ns 500cc IV bolus, 05/06 0.9ns 100cc/hr IV; Decreased dose of hydralazine; Avoid hypotension; Avoid nephrotoxic agents. Nephrology consult see above. Is there an additional diagnosis and/or clinical significance related to the Elevated Troponins? [ ] Type 2 CO due to Renal failure [ ] Type 2 CO due to other (please specify ) [ ] Unable to determine [ ] Other Condition, please specify Reference: [employer] Fourth [employer]year Definition of Myocardial Infraction Elevated Cardiac Troponin >99th percentile with Troponin rise and/or fall * With Acute ischemia * Acute Myocardial Infarction * Atherosclerosis thrombosis * Type I CO * Oxygen supply and demand imbalance * Type II CO (Please indicate etiology) * Without acute ischemia * Acute Myocardial Injury (Template Last Reviewed: December 2022) This patient did not have CO No need to characterize ANY FURTHER MTDD
[2023-05-08 11:27] LABS: African American GFR (CKD) 23 (>60 ml/min/1.73 sqM); Anion Gap 14 mmol/L; Blood Urea Nitrogen 60 mg/dL (9-20); Calcium 8.4 mg/dL (8.4-10.2); Carbon Dioxide 17 mmol/L (22-30); Chloride 103 mmol/L (98-107); Glucose 151 mg/dL (74-99); Non-African American GFR(CKD) 20 (>60 ml/min/1.73 sqM); Potassium 3.5 mmol/L (3.5-5.1); Sodium 134 mmol/L (137-145)
--- NOTE | 2023-05-08 12:33 | P.PN ---
Subjective Patient is seen for follow-up for acute kidney injury. Patient was admitted with weakness fever and cough. Being treated for community-acquired pneumonia. Currently maintained on IV fluids. Serum creatinine has been staying around 3. It is 2.9 today. Patient has been voiding. Ultrasound of the kidneys shows no evidence of hydronephrosis Objective - Vital Signs Vital signs: Vital Signs Temp 99.0 F 05/08/23 12:01 Pulse 75 05/08/23 12:01 Resp 18 05/08/23 12:01 BP 106/65 05/08/23 12:01 Pulse Ox 100 05/08/23 12:01 FiO2 Intake & Output 05/07/23 05/08/23 05/08/23 18:59 06:59 18:59 Intake Total 250 Output Total 1080 Balance -1080 250 Weight 85.729 kg Intake: IV 10 Invasive Line 1 10 Oral 240 Output: Urine 1080 Other: Voiding Method Urinal Urinal # Voids 3 - Exam Patient is awake, comfortable, no acute distress Alert oriented 3 Examination of the heart S1 and S2 Examination the lungs decreased breath sounds at the bases Abdomen is soft nontender Examination of lower extremities shows no significant edema LEGAL EXECUTIVE exam grossly intact - Labs CBC & Chem 7: 05/07/23 03:15 05/08/23 10:15 Labs: Abnormal Lab Results - Last 24 Hours (Table) 05/08/23 Range/Units 10:15 Sodium 134 L (137-145) mmol/L Carbon Dioxide 17 L (22-30) mmol/L BUN 60 H (9-20) mg/dL Creatinine 2.93 H (0.66-1.25) mg/dL Glucose 151 H (74-99) mg/dL Microbiology - Last 24 Hours (Table) 05/06/23 23:30 Blood Culture - Preliminary Blood 05/06/23 23:15 Blood Culture - Preliminary Blood Assessment and Plan Assessment: 1. Acute kidney injury mostly ATN currently nonoliguric. Rule out acute GN. No evidence of obstruction on ultrasound. UA shows 1+ protein and moderate blood WBCs 15. Since renal function has not improved much with hydration I will proceed with serology can workup for GN 2. Chronic kidney disease NKF stage III a with previous creatinine around 1.5 mg/dL on 06/27/2021. Etiology is likely nephrosclerosis 3. Community-acquired pneumonia maintained on ceftriaxone and azithromycin 4. Hypertension with CK D stage III 5. Possible left renal lower pole mass noted on ultrasound. Will need further evaluation on CT. This can be done as outpatient Plan: Continue IV fluids Check baseline serologies for workup of GN Repeat labs in a.m. Continue to avoid nephrotoxic agents Decrease hydralazine further as blood pressure remains on the lower side.
--- NOTE | 2023-05-08 15:22 | P.PN ---
Subjective Progress Note Date: 05/08/23 Hospital course: Patient is a very pleasant 72-year-old male with a past medical history of nonischemic cardiomyopathy, HFrEF with previously known EF of 45-50%, hypertension, hyperlipidemia, nicotine dependence, and chronic kidney disease. He presented to the emergency department on 05/06/23 secondary to complaints of fever, cough, and left-sided chest pain. Patient underwent full evaluation in the emergency department. Labs completed and reviewed. CBC showing normocytic anemia with hemoglobin 9.3. Coagulation profile showing slightly elevated PTT of 36.3. BMP revealing hypernatremia with sodium 134, hypokalemia with potassium of 3.0, and hypocarbia with bicarb of 19. BMP showing an acute kidney injury with BUN of 59, creatinine 3.21, and GFR of 18 with baseline creatinine of 1.5. Troponin was elevated at 0.061. Urinalysis positive for ketones, protein, 6 RBCs, and 15 WBCs. Influenza A, influenza B, RSV, and Covid PCR were negative. EKG was completed showing normal sinus rhythm at 79 bpm. Chest x-ray revealing left upper lobe infiltrate concerning for pneumonia. Patient was started on IV antibiotics for treatment of community-acquired pneumonia with azithromycin and Rocephin. He was also placed on gentle IV fluid hydration for treatment of his acute kidney injury. Physical exam: Patient seen and fully evaluated at bedside this morning. Patient was sitting up at bedside visiting with family. Patient does report feeling better since arrival to our facility stating cough has improved. Currently he denies having any headache, lightheadedness, dizziness, chest pain, palpitations, shortness of breath, or any other complaints at this time. Vital signs reviewed and stable. General: Nontoxic, no distress and appears stated age. Derm: Skin warm and dry, normal coloration for ethnicity. Head: Atraumatic, normocephalic and symmetric. Eyes: EOMs intact, no lid lag, and anicteric sclera Mouth: no lip lesions, mucus membranes moist Cardiovascular: regular rate and rhythm with normal S1S2, systolic murmur, positive posterior tibial pulses bilaterally, and cap refill < 2 seconds. Lungs: Respirations even, regular, and unlabored on room air. Lungs diminished. Abdominal: soft, nontender to palpation, no guarding, no appreciable organome lc Ext: ROM intact. No gross muscle atrophy, trace bilateral lower extremity edema, no contractures Neuro: Speech clear, face symmetrical and CN II-XII grossly intact with no noted focal neuro deficits Psych: Alert and oriented to person, place, time, and situation. Appropriate and pleasant affect. Assessment and Plan of Care: Community-acquired pneumonia Acute kidney injury on chronic kidney disease Elevated troponins likely secondary to acute kidney injury Hypokalemia Hyponatremia Normocytic anemia Nonischemic cardiomyopathy HFrEF with previously known EF of 45-50% Hypertension Hyperlipidemia -Continue to Hold torsemide secondary to acute kidney injury and continue with gentle IV fluid hydration with 0.9% normal saline at 100 mL per hour. -Continue IV antibiotics with azithromycin and Rocephin day 3 of 5 of antibiotic treatment course. -Reviewed renal ultrasound results, radiology report stating no hydronephrosis or nephrolithiasis with questionable left renal lower pole mass versus parenchyma -Discussed with radiologist, patient is unable to receive IV contrast will obtain an MR abdomen without contrast for further evaluation to further evaluate concerns of renal mass. -Nephrology following, therapist phys recommending continuation of IV fluids and further decreased hydralazine from 75 mg 3 times daily down to 25 mg 3 times daily -Patient to continue daily medication regimen with amlodipine 10 mg daily, aspirin 81 mg daily, atorvastatin 40 mg nightly, hydralazine 25 mg 3 times daily, isosorbide mononitrate 60 mg daily, and metoprolol 50 mg twice daily. -Covid, Influenza A, Influenza B, RSV and Legionella Negative. Data reviewed: Vital signs reviewed. Blood pressure 134/59, heart rate 85, respiratory rate 18, temp 99.2F, SpO2 of 96% on room air. Labs completed and reviewed. BMP showing mild hyponatremia with sodium 134, hypocarbia with bicarb of 17, and then continued elevated renal function with BUN of 60, creatinine 2.93, and GFR of 20. Reviewed renal ultrasound results, radiology report stating no hydronephrosis or nephrolithiasis with questionable left renal lower pole mass versus parenchyma CODE STATUS: Full code DVT prophylaxis: Heparin Anticipated discharge date: Clinical course to determine Anticipated discharge place: Clinical course to determine Patient was seen independently by Nurse Pracitioner. This document was prepared using [employer] dictation software. Please allow for errors in kidney puller, while rare they do occur. Objective - Vital Signs Vital signs: Vital Signs Temp 98.2 F 05/08/23 04:00 Pulse 81 05/08/23 04:00 Resp 18 05/08/23 04:00 BP 116/61 05/08/23 04:00 Pulse Ox 97 05/08/23 04:00 FiO2 Intake & Output 05/07/23 05/08/23 05/08/23 18:59 06:59 18:59 Output Total 1080 Balance -1080 Weight 85.729 kg Output: Urine 1080 Other: Voiding Method Urinal # Voids 3 - Labs CBC & Chem 7: 05/07/23 03:15 05/08/23 10:15 Labs: Abnormal Lab Results - Last 24 Hours (Table) 05/07/23 05/07/23 Range/Units 03:15 08:45 Iron 9 L (65-175) UG/DL TIBC 155 L (228-460) UG/DL % Saturation 5.81 L (15.00-50.00) Transferrin 111.0 L (204.0-354.0) mg/dL Ferritin 472.0 H (22.0-322.0) ng/mL Troponin I 0.056 H* (0.000-0.034) ng/mL Microbiology - Last 24 Hours (Table) 05/06/23 23:30 Blood Culture - Preliminary Blood 05/06/23 23:15 Blood Culture - Preliminary Blood
[2023-05-08] MEDS: AZITHROMYCIN 500 MG in SODIUM CHLORIDE 0.9% 250 ML IVPB SCH (21:28)
[2023-05-08] MEDS: ATORVASTATIN 40 MG TAB PO SCH (21:29)
[2023-05-09] MEDS: HEPARIN SODIUM,PORCINE 5,000 UNIT/ML 1 ML VIAL SQ SCH ×3 (01:06→16:20)
[2023-05-09 02:34] LABS: Complement C3 97.6 mg/dL (80.0-207.0)
[2023-05-09 03:35] LABS: DNA Double-Stranded Indetermin (Negative)
[2023-05-09 04:05] LABS: Hepatitis B Surface AB- Quant 3.5 mIU/mL; Hepatitis B Surface Antigen Nonreactive; Hepatitis C IgG Antibody Nonreactive
[2023-05-09] MEDS: ASPIRIN 81 MG PO SCH (08:47)
[2023-05-09] MEDS: ISOSORBIDE MONONITRATE ER 60 MG TAB.ER.24H PO SCH (08:47)
[2023-05-09] MEDS: hydrALAZINE HCL 25 MG TAB PO SCH ×3 (08:47→21:07)
[2023-05-09] MEDS: amLODIPine 10 MG TAB PO SCH (08:47)
[2023-05-09] MEDS: METOPROLOL TARTRATE 50 MG TAB PO SCH ×2 (08:47→21:07)
[2023-05-09 09:00] LABS: ALT 27 U/L (10-49); AST 52 U/L (14-35); Albumin 2.7 g/dL (3.8-4.9); Albumin/Globulin Ratio 0.87 Ratio (1.60-3.17); Alkaline Phosphatase 66 U/L (41-126); BUN/Creat Ratio 18.56 Ratio (12.00-20.00); Blood Urea Nitrogen 59.4 mg/dL (9.0-27.0); Calcium 8.5 mg/dL (8.7-10.3); Carbon Dioxide 18.2 mmol/L (21.6-31.8); Chloride 103 mmol/L (96-109); Globulin 3.1 g/dL (1.6-3.3); Glucose 119 mg/dL (70-110); Magnesium 1.9 mg/dL (1.5-2.4); Potassium 3.4 mmol/L (3.5-5.5); Sodium 137 mmol/L (135-145); Total Bilirubin 0.5 mg/dL (0.3-1.2); Total Protein 5.8 g/dL (6.2-8.2)
[2023-05-09 09:16] LABS: HCT 20.5 % (39.6-50.0); MCH 30.4 pg (27.0-32.0); MCHC 34.1 g/dL (32.0-37.0); MCV 89.1 FL (80.0-97.0); Mean Platelet Volume 11.4 FL (9.5-12.2); NRBC Per 100 WBC 0 X 10*3/uL (0.00-0.01); Platelet Count 244 X 10*3/uL (140-440); RDW 12.9 % (11.5-14.5)
[2023-05-09] MEDS ORDERED: MORPHINE SULFATE 4 MG/ML SYRINGE IV PRN (10:42)
[2023-05-09] MEDS: SODIUM CHLORIDE 0.9% 1,000 ML IV SCH ×2 (11:12→20:04)
[2023-05-09] MEDS: HYDROcodone/APAP 5-325MG 1 EACH TAB PO PRN (11:12)
[2023-05-09] MEDS ORDERED: POTASSIUM CHLORIDE ER 20 MEQ TAB.ER PO STA (11:46)
--- NOTE | 2023-05-09 12:05 | MR ---
EXAMINATION TYPE: MR abdomen wo con DATE OF EXAM: 05/09/2023 10:55 AM CLINICAL INDICATION:Male, 72 years old with history of rule out renal mass left lower pole.; PHH, Abn ormal US, VANIA, evaluate for left renal mass. COMPARISON: CT scan abdomen from 08/13/2020. Ultrasound 05/07/2023 TECHNIQUE: Multiplanar multi-sequence imaging was performed without contrast. IV Contrast: None FINDINGS: LOWER CHEST: No gross irregularity. ABDOMEN Liver: No evidence for hepatic steatosis or cirrhosis. There are at least 2 high T2 signal probable h epatic cysts in the left hepatic lobe. Gallbladder and Bile ducts: No evidence for ductal dilation, or biliary stricture or evidence of chol edocholithiasis. The gallbladder is within normal limits. Pancreas: No ductal dilation. No evidence for solid mass. Spleen: Normal for size. Adrenal glands: Unremarkable. Kidneys: No evidence for obstructive uropathy. No suspicious renal masses. No obvious mass. There is cortical thinning of the mid left kidney with relative sparing of the superior and inferior aspect of the kidney. The minimally visualized superior pole of the left kidney on CT on 08/13/2020 appears sim ilar involving the superior left renal pole. Stomach and Bowel: No evidence for bowel wall thickening or evidence for obstruction.. Scattered col onic diverticula are seen throughout the colon. Peritoneum: No evidence of pneumoperitoneum or free fluid. Vasculature: No aortic aneurysm. Musculoskeletal: The osseous structures appear intact. Lymph Nodes: No gross evidence for lymphadenopathy. Abdominal wall: Unremarkable. IMPRESSION: 1. Limited noncontrast exam of the kidneys. There is some atrophy changes of the mid portion of the left kidney with suspected relative sparing of the superior and inferior renal poles. No definitive s uspicious mass visualized. Consider short-term follow-up MRI with contrast. 2. Colonic diverticulosis. 3. Simple appearing hepatic cyst.
[2023-05-09 14:19] LABS: HCT 23.2 % (39.0-53.0); HGB 7.7 gm/dL (13.0-17.5); MCH 30.2 pg (25.0-35.0); MCHC 33.2 g/dL (31.0-37.0); Mean Platelet Volume 8.4; Platelet Count 231 k/uL (150-450); RBC 2.54 m/uL (4.30-5.90); RDW 13.1 % (11.5-15.5); WBC 8.1 k/uL (3.8-10.6)
--- NOTE | 2023-05-09 14:36 | P.PN ---
Subjective Patient is seen for follow-up for acute kidney injury. Patient was admitted with weakness fever and cough. Being treated for community-acquired pneumonia. Currently maintained on IV fluids. Serum creatinine has been staying around 3 with no improvement in renal function. Patient has been voiding. Ultrasound of the kidneys shows no evidence of hydronephrosis Serologies were ordered to rule out underlying acute GN. C4 is low and frgt-nbxsmk-jvysnnws DNA is borderline positive. I discussed kidney biopsy with the patient however he is maintained on aspirin so this will be done as outpatient. She will need to hold aspirin for 7 days. Objective - Vital Signs Vital signs: Vital Signs Temp 98.2 F 05/09/23 13:02 Pulse 94 05/09/23 13:02 Resp 18 05/09/23 13:02 BP 117/66 05/09/23 13:02 Pulse Ox 94 L 05/09/23 13:02 FiO2 Intake & Output 05/08/23 05/09/23 05/09/23 18:59 06:59 18:59 Intake Total 250 Output Total 100 Balance 250 -100 Intake: IV 10 Invasive Line 1 10 Oral 240 Output: Urine 100 Other: Voiding Method Urinal Urinal Urinal # Voids 1 # Bowel Movements 1 - Exam Patient is awake, comfortable, no acute distress Alert oriented 3 Examination of the heart S1 and S2 Examination the lungs decreased breath sounds at the bases Abdomen is soft nontender Examination of lower extremities shows no significant edema 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 exam grossly intact - Labs CBC & Chem 7: 05/09/23 14:02 05/09/23 05:53 Labs: Abnormal Lab Results - Last 24 Hours (Table) 05/08/23 05/08/23 05/08/23 Range/Units 13:56 13:56 13:56 RBC (4.40-5.60) X 10*6/uL Hgb (13.0-17.0) g/dL Hct (39.6-50.0) % Potassium (3.5-5.5) mmol/L Carbon Dioxide (21.6-31.8) mmol/L Anion Gap (4.00-12.00) mmol/L BUN (9.0-27.0) mg/dL Creatinine (0.6-1.5) mg/dL Est GFR (CKD-EPI) (>=60) Glucose (70-110) mg/dL Calcium (8.7-10.3) mg/dL AST (14-35) U/L Total Protein (6.2-8.2) g/dL Albumin (3.8-4.9) g/dL Albumin/Globulin Ratio (1.60-3.17) Ratio Myeloperoxidase Ab >134.0 H (<3.5) U/mL Double Strand DNA Ab Indetermin A (Negative) Complement C4 9.7 L (10.0-53.0) mg/dL 05/09/23 05/09/23 05/09/23 Range/Units 05:53 05:53 14:02 RBC 2.30 L 2.54 L (4.40-5.60) X 10*6/uL Hgb 7.0 L 7.7 L (13.0-17.0) g/dL Hct 20.5 L 23.2 L (39.6-50.0) % Potassium 3.4 L (3.5-5.5) mmol/L Carbon Dioxide 18.2 L (21.6-31.8) mmol/L Anion Gap 15.80 H (4.00-12.00) mmol/L BUN 59.4 H (9.0-27.0) mg/dL Creatinine 3.2 H (0.6-1.5) mg/dL Est GFR (CKD-EPI) 20 L (>=60) Glucose 119 H (70-110) mg/dL Calcium 8.5 L (8.7-10.3) mg/dL AST 52 H (14-35) U/L Total Protein 5.8 L (6.2-8.2) g/dL Albumin 2.7 L (3.8-4.9) g/dL Albumin/Globulin Ratio 0.87 L (1.60-3.17) Ratio Myeloperoxidase Ab (<3.5) U/mL Double Strand DNA Ab (Negative) Complement C4 (10.0-53.0) mg/dL Microbiology - Last 24 Hours (Table) 05/08/23 03:15 Gram Stain - Preliminary Sputum 05/06/23 23:30 Blood Culture - Preliminary Blood 05/06/23 23:15 Blood Culture - Preliminary Blood Assessment and Plan Assessment: 1. Acute kidney injury, ATN versus acute GN. No evidence of obstruction on ultrasound. UA shows 1+ protein and moderate blood WBCs 15. Serologies reveal low C4 and borderline positive piin-mdespu-rihntwba DNA. Other serologies are pending. Patient will need a kidney biopsy however he was maintained on aspirin therefore this will be done as outpatient after he has been off of aspirin for 7 days. 2. Chronic kidney disease NKF stage III a with previous creatinine around 1.5 mg/dL on 06/27/2021. Etiology is likely nephrosclerosis 3. Community-acquired pneumonia maintained on ceftriaxone and azithromycin 4. Hypertension with CK D stage III 5. Possible left renal lower pole mass noted on ultrasound. Abdominal MRI does not show a definite of suspicious mass. Plan: Patient will need kidney biopsy however he has been on aspirin therefore this will be done as outpatient. Patient will need to stay off of aspirin for 7 days. Follow-up in the office in one week
--- NOTE | 2023-05-09 16:47 | P.PN ---
Subjective Progress Note Date: 05/09/23 Hospital course: Patient is a very pleasant 72-year-old male with a past medical history of nonischemic cardiomyopathy, HFrEF with previously known EF of 45-50%, hypertension, hyperlipidemia, nicotine dependence, and chronic kidney disease. He presented to the emergency department on 05/06/23 secondary to complaints of fever, cough, and left-sided chest pain. Patient underwent full evaluation in the emergency department. Labs completed and reviewed. CBC showing normocytic anemia with hemoglobin 9.3. Coagulation profile showing slightly elevated PTT of 36.3. BMP revealing hypernatremia with sodium 134, hypokalemia with potassium of 3.0, and hypocarbia with bicarb of 19. BMP showing an acute kidney injury with BUN of 59, creatinine 3.21, and GFR of 18 with baseline creatinine of 1.5. Troponin was elevated at 0.061. Urinalysis positive for ketones, protein, 6 RBCs, and 15 WBCs. Influenza A, influenza B, RSV, and Covid PCR were negative. EKG was completed showing normal sinus rhythm at 79 bpm. Chest x-ray revealing left upper lobe infiltrate concerning for pneumonia. Patient was started on IV antibiotics for treatment of community-acquired pneumonia with azithromycin and Rocephin. He was also placed on gentle IV fluid hydration for treatment of his acute kidney injury. Physical exam: Patient seen and fully evaluated at bedside this morning. Patient reporting pain to lower back this morning. Reports had a rough night sleeping on stretcher in the emergency department because the mattress was very uncomfortable causing him to have lower back pain. Goals for today is weaning patient off of oxygen and encouraging increased ambulation to prepare for discharge. Vital signs reviewed and stable. General: Nontoxic, no distress and appears stated age. Derm: Skin warm and dry, normal coloration for ethnicity. Head: Atraumatic, normocephalic and symmetric. Eyes: EOMs intact, no lid lag, and anicteric sclera Mouth: no lip lesions, mucus membranes moist Cardiovascular: regular rate and rhythm with normal S1S2, systolic murmur, positive posterior tibial pulses bilaterally, and cap refill < 2 seconds. Lungs: Respirations even, regular, and unlabored on room air. Lungs diminished. Abdominal: soft, nontender to palpation, no guarding, no appreciable organomegaly Ext: ROM intact. No gross muscle atrophy, trace bilateral lower extremity edema, no contractures Neuro: Speech clear, face symmetrical and CN II-XII grossly intact with no noted focal neuro deficits Psych: Alert and oriented to person, place, time, and situation. Appropriate and pleasant affect. Assessment and Plan of Care: Community-acquired pneumonia Acute kidney injury on chronic kidney disease, ATN versus acute GN Elevated troponins likely secondary to acute kidney injury Hypokalemia Hyponatremia Normocytic anemia Nonischemic cardiomyopathy HFrEF with previously known EF of 45-50% Hypertension Hyperlipidemia -Nephrology following and worked pt up for ATN versus acute GN and serologies revealed low C4 and borderline positive ufhz-pznkbu-medzqell DNA, mushroom grower recommending patient will need to undergo a kidney biopsy. Patient does take daily aspirin and therefore kidney biopsy will need to scheduled outpatient as patient will need to hold aspirin for 7 days prior to renal biopsy being completed. -Continue to Hold torsemide secondary to acute kidney injury and continue with gentle IV fluid hydration with 0.9% normal saline at 100 mL per hour. -Completed three-day course of azithromycin and on 05/08/23 and is currently on day 4 of 5 of Rocephin. -MR abdomen without contrast is scheduled for later this morning for further evaluation to further evaluate concerns of renal mass. -Patient to continue daily medication regimen with amlodipine 10 mg daily, aspirin 81 mg daily, atorvastatin 40 mg nightly, hydralazine 25 mg 3 times daily, isosorbide mononitrate 60 mg daily, and metoprolol 50 mg twice daily. -Covid, Influenza A, Influenza B, RSV and Legionella Negative. Data reviewed: Vital signs reviewed. Blood pressure 126/75, heart rate 96, respiratory rate 17, temp 98.2F, SpO2 of 93% on 2L O2 via nasal cannula. Labs completed and reviewed. CBC showing normocytic anemia with hemoglobin of 7.0. BMP revealing potassium of 3.4, BUN of 59.4 and creatinine of 3.2. Serologies showing low complement C4 of 9.7 and indeterminant/borderline pos itive anti-double stranded DNA and positive Myeloperoxidase anti-body of greater than 134. CODE STATUS: Full code DVT prophylaxis: Heparin Anticipated discharge date: Likely tomorrow morning after completion of MRI and patient receives final dose of antibiotics for community-acquired pneumonia. G oals for today is weaning patient off of oxygen and encouraging increased ambulation to prepare for discharge. Anticipated discharge place: Home, patient will need to follow up outpatient for renal biopsy after holding aspirin for 7 days. Patient was seen independently by Nurse Pracitioner. This document was prepared using [employer] dictation software. Please allow for errors in switch coupler, while rare they do occur. Objective - Vital Signs Vital signs: Vital Signs Temp 98.2 F 05/09/23 07:45 Pulse 96 05/09/23 07:45 Resp 17 05/09/23 07:45 BP 126/75 05/09/23 07:45 Pulse Ox 93 L 05/09/23 07:45 FiO2 Intake & Output 05/08/23 05/09/23 05/09/23 18:59 06:59 18:59 Intake Total 250 Output Total 100 Balance 250 -100 Intake: IV 10 Invasive Line 1 10 Oral 240 Output: Urine 100 Other: Voiding Method Urinal Urinal # Voids 1 # Bowel Movements 1 - Labs CBC & Chem 7: 05/09/23 14:02 05/09/23 05:53 Labs: Abnormal Lab Results - Last 24 Hours (Table) 05/08/23 05/08/23 05/08/23 Range/Units 10:15 13:56 13:56 Sodium 134 L (137-145) mmol/L Carbon Dioxide 17 L (22-30) mmol/L BUN 60 H (9-20) mg/dL Creatinine 2.93 H (0.66-1.25) mg/dL Glucose 151 H (74-99) mg/dL Double Strand DNA Ab Indetermin A (Negative) Complement C4 9.7 L (10.0-53.0) mg/dL Microbiology - Last 24 Hours (Table) 05/08/23 03:15 Gram Stain - Preliminary Sputum 05/06/23 23:30 Blood Culture - Preliminary Blood 05/06/23 23:15 Blood Culture - Preliminary Blood
[2023-05-09] MEDS: AZITHROMYCIN 500 MG in SODIUM CHLORIDE 0.9% 250 ML IVPB SCH (20:03)
[2023-05-09 20:23] VITALS: RESP 16
[2023-05-09] MEDS: ATORVASTATIN 40 MG TAB PO SCH (21:07)
[2023-05-10] MEDS: HEPARIN SODIUM,PORCINE 5,000 UNIT/ML 1 ML VIAL SQ SCH ×2 (01:39→09:10)
[2023-05-10] MEDS: SODIUM CHLORIDE 0.9% 1,000 ML IV SCH (07:50)
[2023-05-10 09:08] LABS: BUN/Creat Ratio 19.23 Ratio (12.00-20.00); Blood Urea Nitrogen 59.6 mg/dL (9.0-27.0); Calcium 8.4 mg/dL (8.7-10.3); Carbon Dioxide 16.5 mmol/L (21.6-31.8); Chloride 101 mmol/L (96-109); Glucose 118 mg/dL (70-110); Magnesium 1.8 mg/dL (1.5-2.4); Potassium 3.7 mmol/L (3.5-5.5); Sodium 134 mmol/L (135-145)
[2023-05-10] MEDS: ISOSORBIDE MONONITRATE ER 60 MG TAB.ER.24H PO SCH (09:08)
[2023-05-10] MEDS: METOPROLOL TARTRATE 50 MG TAB PO SCH (09:08)
[2023-05-10] MEDS: hydrALAZINE HCL 25 MG TAB PO SCH (09:08)
[2023-05-10] MEDS: amLODIPine 10 MG TAB PO SCH (09:08)
[2023-05-10] MEDS: ASPIRIN 81 MG PO SCH (09:08)
[2023-05-10] MEDS: HYDROcodone/APAP 5-325MG 1 EACH TAB PO PRN (09:24)
[2023-05-10 09:51] LABS: HCT 20.2 % (39.6-50.0); MCH 30.8 pg (27.0-32.0); MCHC 34.7 g/dL (32.0-37.0); Mean Platelet Volume 11.2 FL (9.5-12.2); NRBC Per 100 WBC 0 X 10*3/uL (0.00-0.01); Platelet Count 248 X 10*3/uL (140-440); RBC 2.27 X 10*6/uL (4.40-5.60); WBC 6.63 X 10*3/uL (4.50-10.00)
--- NOTE | 2023-05-10 10:57 | P.DS ---
Providers Date of admission: 05/06/23 23:19 Expected date of discharge: 05/10/23 Attending physician: Gregorio Gibbons MD Consults: 05/06/23 22:33 Consult Physician Routine Consulting Provider: Ericka Sheehan Consult Reason/Comments: Acute kidney injury Do you want consulting provider notified?: Yes Primary care physician: Stated None Hospital Course: Discharge Diagnosis: Acute kidney injury on chronic kidney disease, ATN versus acute GN. Renal function remains elevated with BUN of 59.6, creatinine 3.1, and GFR of 20. Patient will require renal biopsy next week. It was discussed with patient that he must remain free from taking aspirin for a minimum of 7 days prior to completion a renal biopsy. Patient to follow-up with Dr. Sheehan and office next week for repeat CBC to monitor normocytic anemia resulting from chronic kidney disease and BMP to continue to follow renal function. Patient will need renal biopsy scheduled for next or Saturday. Arrangements being made by Dr. Sheehan's office and this was confirmed by Dr. Sheehan via telephone. Community-acquired pneumonia. Completed 5 day course of antibiotics. Elevated troponins, flat secondary to chronic kidney disease. Hypokalemia, resolved. Potassium 3.7 upon discharge. Hyponatremia, stable with sodium 134 on day of discharge. Normocytic anemia secondary to anemia of chronic disease resulting from chronic kidney disease. Patient to follow-up in nephrology office next week for repeat BMP and CBC as stated above. Nonischemic cardiomyopathy HFrEF with previously known EF of 45-50% Hypertension Hyperlipidemia Hospital Course: Patient is a very pleasant 72-year-old male with a past medical history of non ischemic cardiomyopathy, HFrEF with previously known EF of 45-50%, hypertension, hyperlipidemia, nicotine dependence, and chronic kidney disease. He presented to the emergency department on 05/06/23 secondary to complaints of fever, cough, and left-sided chest pain. Patient underwent full evaluation in the emergency department. Labs completed and reviewed. CBC showing normocytic anemia with hemoglobin 9.3. Coagulation profile showing slightly elevated PTT of 36.3. BMP revealing hypernatremia with sodium 134, hypokalemia with potassium of 3.0, and hypocarbia with bicarb of 19. BMP showing an acute kidney injury with BUN of 59, creatinine 3.21, and GFR of 18 with baseline creatinine of 1.5. Troponin was elevated at 0.061. Urinalysis positive for ketones, protein, 6 RBCs, and 15 WBCs. Influenza A, influenza B, RSV, and Covid PCR were negative. EKG was completed showing normal sinus rhythm at 79 bpm. Chest x-ray revealing left upper lobe infiltrate concerning for pneumonia. Patient was started on IV antibiotics for treatment of community-acquired pneumonia with azithromycin and Rocephin. He was also placed on gentle IV fluid hydration for treatment of his acute kidney injury. He underwent evaluation by autopsy pathologist. Nephrology worked pt up for ATN versus acute GN and serologies revealed low C4 and borderline positive lulw-feguxg-ljyyyflw DNA, autopsy pathologist recommending patient will need to undergo a kidney biopsy. Patient does take daily aspirin and therefore kidney biopsy will need to scheduled outpatient as patient will need to hold aspirin for 7 days prior to renal biopsy being completed. Renal function remains elevated with BUN of 59.6, creatinine 3.1, and GFR of 20. Patient will require renal biopsy next week. It was discussed with patient that he must remain free from taking aspirin for a minimum of 7 days prior to completion a renal biopsy. Patient to follow-up with Dr. Sheehan and office next week for repeat CBC to monitor normocytic anemia resulting from chronic kidney disease and BMP to continue to follow renal function. Patient will need renal biopsy scheduled for next or Saturday. Arrangements being made by Dr. Sheehan's office and this was confirmed by Dr. Sheehan via telephone. Patient completed 5 day course of antibiotics for treatment of community-acquired pneumonia and is free from any complaints at this time. Medically, patient is stable for discharge and will need to follow up with his PCP in 3 days and with autopsy pathologist next week. Patient given strict instructions to avoid any and all use of aspirin or any other NSAIDs for at least 7 days after completion of renal biopsy and instructed to resume by autopsy pathologist. Patient discharged home on prednisone 50 mg daily and resumption of torsemide 20 mg twice a day per recommendations of autopsy pathologist and will be following up with repeat BMP and CBC next week prior to renal biopsy. Patient was provided with a 2 week prescription and if need for prolonged prescription this will be provided at follow-up appointment with nephrology. Physical exam: Vital signs reviewed and stable. General: Nontoxic, no distress and appears stated age. Derm: Skin warm and dry, normal coloration for ethnicity. Head: Atraumatic, normocephalic and symmetric. Eyes: EOMs intact, no lid lag, and anicteric sclera Mouth: no lip lesions, mucus membranes moist Cardiovascular: regular rate and rhythm with normal S1S2, systolic murmur, positive posterior tibial pulses bilaterally, and cap refill < 2 seconds. Lungs: Respirations even, regular, and unlabored on room air. Lungs diminished. Abdominal: soft, nontender to palpation, no guarding, no appreciable organomegaly Ext: ROM intact. No gross muscle atrophy, 1+ pitting bilateral lower extremity edema, no contractures Neuro: Speech clear, face symmetrical and CN II-XII grossly intact with no noted focal neuro deficits Psych: Alert and oriented to person, place, time, and situation. Appropriate and pleasant affect. A total of 39 minutes of time were spent preparing this complex discharge summary. Pt was discharged on 05/10/23 at 10:48 AM. Patient was seen independently by Nurse Practitioner. This document was prepared using [employer] dictation software. Please allow for errors in shampoo assistant while rare they do occur. Martin Toney NP rendered care for this patient independently, reviewed the findings and plan as documented in the note above. I did not physically speak with or examine the patient on this date. Patient Condition at Discharge: Stable Plan - Discharge Summary Discharge Rx Participant: Yes New Discharge Prescriptions: New predniSONE 50 mg PO DAILY 14 Days #14 tab Pantoprazole [Protonix] 40 mg PO DAILY 30 Days #30 tab Continue Isosorbide Mononitrate ER [Imdur] 60 mg PO DAILY #30 tab.er.24h Atorvastatin [Lipitor] 40 mg PO HS #30 tab Metoprolol Tartrate [Lopressor] 50 mg PO BID #60 tab amLODIPine [Norvasc] 10 mg PO DAILY #30 tab Torsemide [Demadex] 20 mg PO BID hydrALAZINE HCL [Apresoline] 100 mg PO TID Discontinued Aspirin EC [Ecotrin Low Dose] 81 mg PO DAILY Discharge Medication List Atorvastatin [Lipitor] 40 mg PO HS #30 tab 08/17/20 [Rx] Isosorbide Mononitrate ER [Imdur] 60 mg PO DAILY #30 tab.er.24h 08/17/20 [Rx] Metoprolol Tartrate [Lopressor] 50 mg PO BID #60 tab 08/17/20 [Rx] amLODIPine [Norvasc] 10 mg PO DAILY #30 tab 08/17/20 [Rx] Torsemide [Demadex] 20 mg PO BID 05/06/23 [History] hydrALAZINE HCL [Apresoline] 100 mg PO TID 05/06/23 [History] Pantoprazole [Protonix] 40 mg PO DAILY 30 Days #30 tab 05/10/23 [Rx] predniSONE 50 mg PO DAILY 14 Days #14 tab 05/10/23 [Rx] Follow up Appointment(s)/Referral(s): Ericka Sheehan MD [STAFF PHYSICIAN] - 05/14/23 1:20 pm (At the [place] office w/ Mike QUINTERO per Dr. Sheehan. address: [address] [place] [address] [facility] [place] [address] The office will call with the appointment for renal biopsy. ) Jim Anderson MD [STAFF PHYSICIAN] - 1 Week Connor Haddad MD [STAFF PHYSICIAN] - 05/20/23 8:30 am Activity/Diet/Wound Care/Special Instructions: Activity: As tolerated. Take breaks as needed. Diet: Renal diet Special Instructions: Take all of your medications as directed and remember to keep all of your doctor's appointments and follow-up as needed. AVOID any and all use of Aspirin or any other NSAIDS until completion of your Kidney Biopsy next week and further instructed by your autopsy pathologist, Dr. Sheehan. Thank you for allowing us to participate in your care, it was truly a pleasure having you for our patient!!! Discharge Disposition: HOME SELF-CARE
--- NOTE | 2023-05-10 11:14 | P.PN ---
Subjective Patient is seen for follow-up for acute kidney injury. Patient was admitted with weakness fever and cough. Being treated for community-acquired pneumonia. Currently maintained on IV fluids. Serum creatinine has been staying around 3 with no improvement in renal function. Patient has been voiding. Ultrasound of the kidneys shows no evidence of hydronephrosis Serologies were ordered to rule out underlying acute GN. C4 is low and ftdc-lityva-[id number] DNA is borderline positive. I discussed kidney biopsy with the patient however he is maintained on aspirin so this will be done as outpatient. Aspirin will be held for 7 days. C-ANCA, anti-MPO is positive as well more than 134. Objective - Vital Signs Vital signs: Vital Signs Temp 98.2 F 05/10/23 07:58 Pulse 87 05/10/23 07:58 Resp 16 05/10/23 02:00 BP 122/68 05/10/23 07:58 Pulse Ox 95 05/10/23 07:58 FiO2 Intake & Output 05/09/23 05/10/23 05/10/23 18:59 06:59 18:59 Intake Total 590 Output Total 700 Balance -110 Intake: Oral 590 Output: Urine 700 Other: Voiding Method Urinal Urinal Urinal # Voids 1 - Exam Patient is awake, comfortable, no acute distress Alert oriented 3 Examination of the heart S1 and S2 Examination the lungs decreased breath sounds at the bases Abdomen is soft nontender Examination of lower extremities 1+ edema 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0) % Sodium 134 L (135-145) mmol/L Carbon Dioxide 16.5 L (21.6-31.8) mmol/L Anion Gap 16.50 H (4.00-12.00) mmol/L BUN 59.6 H (9.0-27.0) mg/dL Creatinine 3.1 H (0.6-1.5) mg/dL Est GFR (CKD-EPI) 20 L (>=60) Glucose 118 H (70-110) mg/dL Calcium 8.4 L (8.7-10.3) mg/dL Myeloperoxidase Ab (<3.5) U/mL Microbiology - Last 24 Hours (Table) 05/08/23 03:15 Gram Stain - Final Sputum Sputum Culture - Final 05/06/23 23:30 Blood Culture - Preliminary Blood 05/06/23 23:15 Blood Culture - Preliminary Blood Assessment and Plan Assessment: 1. Acute kidney injury, acute GN. No evidence of obstruction on ultrasound. UA shows 1+ protein and moderate blood WBCs 15. Serologies reveal low C4 and borderline positive etkm-jkxchq-cgqosdhl DNA. Antimyeloperoxidase antibody more than 134 . Patient will need a kidney biopsy however he was maintained on aspirin therefore this will be done as outpatient after he has been off of aspirin for 7 days. Start steroids and we will schedule dose of Rituxan as outpatient. 2. Chronic kidney disease NKF stage III a with previous creatinine around 1.5 mg/dL on 06/27/2021. Etiology is likely nephrosclerosis 3. Community-acquired pneumonia maintained on ceftriaxone and azithromycin 4. Hypertension with CK D stage III 5. Possible left renal lower pole mass noted on ultrasound. Abdominal MRI does not show a definite of suspicious mass. Plan: Patient will need kidney biopsy however he has been on aspirin therefore this will be done as outpatient. Patient will need to stay off of aspirin for 7 days. Start prednisone with GI prophylaxis Resume diuretics We will schedule rituxan as outpatient. Follow-up in the office in one week
[2023-05-10 15:16] VITALS: BP 107/63; PULSE 75; TEMP 97.3
== END 2023-05-10 15:15 | disposition home or self-care (01) | DRG 193 ==
LOC: EC 20:23 → 3SCARD 23:19 → 5NMEDONC 05-08 10:58
PROVIDERS: ADMIT Internal Medicine; ATTEND Internal Medicine
DX: J18.9 Pneumonia, unspecified organism (principal); N17.0 Acute kidney failure with tubular necrosis; I50.22 Chronic systolic (congestive) heart failure; I42.8 Other cardiomyopathies; I13.0 Hypertensive heart and chronic kidney disease with heart failure and stage 1 through stage 4 chronic kidney disease, or unspecified chronic kidney disease; E87.1 Hypo-osmolality and hyponatremia; N18.30 Chronic kidney disease, stage 3 unspecified; R79.1 Abnormal coagulation profile; F17.200 Nicotine dependence, unspecified, uncomplicated; E86.0 Dehydration; E83.42 Hypomagnesemia; E78.5 Hyperlipidemia, unspecified; E11.22 Type 2 diabetes mellitus with diabetic chronic kidney disease; D63.1 Anemia in chronic kidney disease; E87.6 Hypokalemia; Z79.82 Long term (current) use of aspirin; Z79.899 Other long term (current) drug therapy; Z82.49 Family history of ischemic heart disease and other diseases of the circulatory system; Z83.3 Family history of diabetes mellitus
CPT/HCPCS: 36415; 71046; 74181; 76770; 80048; 80053; 81001; 82607; 82728; 82747; 83516; 83540; 83550; 83690; 83735; 84484; 85025; 85027; 85610; 85730; 86038; 86160; 86162; 86225; 86255; 86334; 86335; 86706; 86803; 87040; 87070; 87205; 87340; 87449; 87636; 93005; 93306; 94760; 96361; 96365; 96366; 96367; 96368; 96372; 96375; 99285

== ENCOUNTER 2023-09-26 08:43 | Inpatient (IN) | payer MEDICARE ==
[2023-09-26] MEDS: SODIUM CHLORIDE 0.9% 500 ML 500 ML IV STA (09:16)
[2023-09-26] MEDS: ASPIRIN 81 MG PO STA (09:17)
[2023-09-26] MEDS: ONDANSETRON 4 MG/2 ML VIAL IVP STA (09:17)
[2023-09-26] MEDS: NITROGLYCERIN SL TABS 0.4 MG TAB SUBLINGUAL STA ×2 (09:17→11:23)
--- NOTE | 2023-09-26 09:27 | ED ---
General Adult HPI - General Chief complaint: Chest Pain Stated complaint: cough, weakness Time Seen by Provider: 09/26/23 09:01 Source: patient, RN notes reviewed, old records reviewed Mode of arrival: wheelchair Limitations: no limitations - History of Present Illness Initial comments: Patient is a 72-year-old male who presents emergency department with 1 week of chest wall pain as well as cough, congestion, mild shortness of breath. States he is receiving some form of infusion for his kidneys. Symptoms have been ongoing for a week. Prior tobacco user. No history of COPD per patient. Endorses a productive cough. Denies any worsening lower extremity edema. Denies orthopnea or PND. Endorses intermittent lower abdominal discomfort but denies constipation or diarrhea. Denies nausea or vomiting. Presents for further evaluation at this time. - Related Data Home Medications Medication Instructions Recorded Confirmed hydrALAZINE HCL [Apresoline] 50 mg PO TID-W/MEALS 05/06/23 09/26/23 metOLazone [Zaroxolyn] 5 mg PO Q2D 09/26/23 09/26/23 Previous Rx's Medication Instructions Recorded Atorvastatin [Lipitor] 40 mg PO HS #30 tab 08/17/20 Isosorbide Mononitrate ER [Imdur] 60 mg PO DAILY #30 tab.er.24h 08/17/20 amLODIPine [Norvasc] 10 mg PO DAILY #30 tab 08/17/20 Pantoprazole [Protonix] 40 mg PO DAILY 30 Days #30 tab 05/10/23 predniSONE 50 mg PO DAILY 14 Days #14 tab 05/10/23 Allergies Allergy/AdvReac Type Severity Reaction Status Date / Time No Known Allergies Allergy Verified 09/26/23 08:49 Review of Systems ROS Statement: Those systems with pertinent positive or pertinent negative responses have been documented in the HPI. Review of Systems: CONST: Denies fever EYES: Denies blurry vision ENT: Endorses cough, congestion C/V: Endorses chest pain RESP: Endorses shortness of breath due to cough, congestion GI: Denies abdominal pain : Denies dysuria SKIN: Denies rash. MSK: Denies joint pain. NEURO: Denies headache ROS Other: All systems not noted in ROS Statement are negative. Past Medical History Past Medical History: Heart Failure, Hyperlipidemia, Hypertension, Renal Disease Additional Past Medical History / Comment(s): Cardiomyopathy, History of Any Multi-Drug Resistant Organisms: None Reported Past Surgical History: No Surgical Hx Reported Past Anesthesia/Blood Transfusion Reactions: Unable to Obtain Additional Past Anesthesia/Blood Transfusion Reaction / Comment(s): Pt states he has never had surgery. Past Psychological History: No Psychological Hx Reported Smoking Status: Current every day smoker Past Alcohol Use History: Rare Past Drug Use History: Marijuana - Past Family History Father Family Medical History: Diabetes Mellitus, Myocardial Infarction ([place]) Additional Family Medical History / Comment(s): Had leg amputation Mother History Unknown: Yes Family Medical History: No Reported History Sister(s) Family Medical History: Diabetes Mellitus Additional Family Medical History / Comment(s): 1 sister had arm amputated due to diabetes General Exam - General Exam Comments Initial Comments: General: Appears in no acute distress. HEAD: Normal with no signs of head trauma. EYES: PERRLA, EOMI, conjunctiva normal, no discharge. ENT: Hearing grossly intact, normal oropharynx. RESPIRATORY: Mild wheezing bilaterally. No significant increased work of breathing. No hypoxia. C/V: Regular rate and rhythm. S1 and S2 auscultated, no edema, peripheral pulses 2+ and intact throughout ABD: Abd is soft, nontender, nondistended EXT: Normal range of motion, no obvious deformity SKIN: No rashes or lesions observed on exposed skin. NEURO: Alert and oriented x 4. Limitations: no limitations Course Vital Signs 09/26/23 09/26/23 09/26/23 08:44 08:49 09:49 Temperature 98.1 F Pulse Rate 100 92 105 H Respiratory 18 18 18 Rate Blood Pressure 90/49 132/93 132/93 O2 Sat by Pulse 98 97 96 Oximetry 09/26/23 09/26/23 12:37 14:12 Temperature 98.2 F Pulse Rate 72 Respiratory 18 18 Rate Blood Pressure 117/73 O2 Sat by Pulse 97 Oximetry Medical Decision Making - Medical Decision Making Was pt. sent in by a medical professional or institution (RPAHAEL Tubbs, [employer]IPMENT RENTAL MANAGER, urgent care, hospital, or [facility]...) When possible be specific @ -No Did you speak to anyone other than the patient for history (EMS, parent, family, police, friend...)? What history was obtained from this source @ -No Did you review nursing and triage notes (agree or disagree)? Why? @ -I reviewed and agree with nursing and triage notes Were old charts reviewed (outside hosp., previous admission, EMS record, old EKG, old radiological studies, urgent care reports/EKG's, [facility] records)? Report findings @ -Old charts reviewed Differential Diagnosis (chest pain, altered mental status, abdominal pain women, abdominal pain men, vaginal bleeding, weakness, fever, dyspnea, syncope, headache, dizziness, GI bleed, back pain, seizure, CVA, palpatations, mental health, musculoskeletal)? @ -Differential Chest Pain: Stable Angina, Unstable Angina, STEMI, NSTEMI Aortic Dissection, Pneumothorax, Musculoskeletal, Esophageal Spasm GERD, Cholecystitis, Pancreatitis, Zoster, this is not meant to be an all-inclusive list. EKG interpreted by me (3pts min.). @ -As above X-rays interpreted by me (1pt min.). @ -Chest x-ray reveals no obvious acute cardiopulmonary process. CT interpreted by me (1pt min.). @ -None done U/S interpreted by me (1pt. min.). @ -None done What testing was considered but not performed or refused? (CT, X-rays, U/S, labs)? Why? @ -None What meds were considered but not given or refused? Why? @ -None Did you discuss the management of the patient with other professionals (professionals i.e. , PA, HE[employer] EQUIPMENT RENTAL MANAGER, lab, RT, psych nurse, social economist, residential sales consultant, teacher, credit compliance officer, manager of case management)? Give summary @ -Discussed with on-call nephrology, Dr. De Leon who recommended 100 mEq total potassium replenishment as well as placing the patient on 75 cc an hour of normal 0.9% saline. Requested Cadena catheter initiation for strict output monit oring. Requested ICU admission. I spoke with the on-call head stock operator Dr. Rajan who was in agreement with plan for ICU admission. I spoke with the ED call [facility] Dr. Frias who accepted the admission. Was smoking cessation discussed for >3mins.? @ -No Was critical care preformed (if so, how long)? @ -Yes, 41 minutes Were there social determinants of health that impacted care today? How? (Homeles sness, low income, unemployed, alcoholism, drug addiction, transportation, low edu. Level, literacy, decrease access to med. care, long-term, rehab)? @ -No Was there de-escalation of care discussed even if they declined (Discuss DNR or withdrawal of care, Hospice)? DNR status @ -No What co-morbidities impacted this encounter? (DM, HTN, Smoking, COPD, CAD, Cancer, CVA, ARF, Chemo, Hep., AIDS, mental health diagnosis, sleep apnea, morbid obesity)? @ -Kidney disease Was patient admitted / discharged? Hospital course, mention meds given and route, prescriptions, significant lab abnormalities, going to OR and other pertinent info. @ -I discussed with the patient, presents with chest pain and shortness of breath for the last week. Has a history of heart failure, hypertension. Also cardiomyopathy. Chest pain seems to be more chest wall pain as it is reproducible on palpation. Will obtain cardiopulmonary workup. He was in agreement this plan. Vital signs within acceptable limits at this time. No obvious respiratory distress. EKG shows no signs of acute ischemia. Chest x-ray reveals no obvious acute cardiopulmonary process. Patient's laboratory studies remarkable for leukocytosis of 20.1. Patient is hyponatremic with a sodium of 118, hypokalemia with a potassium of 1.8, hypochloremic with a chloride of 74. Patient has CKD and appears to be at baseline with BUN of 75 and creatinine of 2.42. This is similar to prior lab studies. Patient is hypomagnesemic at 1.5 which was re plenished. Troponin is elevated at 0.315 likely secondary to underlying renal etiology. BNP is 14,000. Patient is COVID-positive. Urinalysis unremarkable. Patient received aspirin and we will not initiate heparin at this time as I have low suspicion for cardiac etiology for his elevated troponin but we will obtain repeat and initiate as needed. At this time, patient already received aspirin, I updated him. We did repeat labs as I was concerned for possible inaccurate results for the electrolytes however repeat labs were sent and were identical. Therefore we will replenish the potassium with 100 mEq total after discussion with on-call nephrology Dr. De Leon. Patient will be started on 0.75 cc an hour of normal saline. Patient will be admitted to ICU. I spoke with the ICU attending Dr. Rajan who accepted the admission. Blood cultures and urine cultures will be sent, and I did d iscuss antibiotic initiation with Dr. Rajan who was in agreement with the plan for holding off as elevated white count could be secondary to the COVID infection with patient having no obvious source of infection. Will trend the troponins. Cardiology will be consulted. Patient was in agreement this plan. I spoke with the accepting physician [place], Dr. Frias who accepted the admission. Undiagnosed new problem with uncertain prognosis? @ -No Drug Therapy requiring intensive monitoring for toxicity (Heparin, Nitro, Insulin, Cardizem)? @ -No Were any procedures done? @ -No Diagnosis/symptom? @ -Hyponatremia, hypokalemia the setting of CKD. Elevated troponin. Hypomagnesemia. COVID-19 infection. Acute, or Chronic, or Acute on Chronic? @ -Acute Uncomplicated (without systemic symptoms) or Complicated (systemic symptoms)? @ -Complicated Side effects of treatment? @ -None Exacerbation, Progression, or Severe Exacerbation] @ -No Poses a threat to life or bodily function? @ -Yes - Lab Data Result diagrams: 09/26/23 09:12 09/26/23 10:05 Lab Results 09/26/23 09/26/23 09/26/23 Range/Units 09:12 09:12 09:12 WBC 20.1 H (3.8-10.6) k/uL RBC 4.30 (4.30-5.90) m/uL Hgb 13.1 (13.0-17.5) gm/dL Hct 36.4 L (39.0-53.0) % MCV 84.6 (80.0-100.0) fL MCH 30.5 (25.0-35.0) pg MCHC 36.1 (31.0-37.0) g/dL RDW 13.5 (11.5-15.5) % Plt Count 279 (150-450) k/uL MPV 8.4 Neutrophils % 89 % Lymphocytes % 5 % Monocytes % 6 % Eosinophils % 0 % Basophils % 0 % Neutrophils # 17.9 H (1.3-7.7) k/uL Lymphocytes # 0.9 L (1.0-4.8) k/uL Monocytes # 1.2 H (0-1.0) k/uL Eosinophils # 0.0 (0-0.7) k/uL Basophils # 0.0 (0-0.2) k/uL Hyperchromasia Marked PT 10.6 (10.0-12.5) sec INR 1.0 (<1.2) APTT 23.0 (22.0-30.0) sec Sodium (137-145) mmol/L Potassium (3.5-5.1) mmol/L Chloride (98-107) mmol/L Carbon Dioxide (22-30) mmol/L Anion Gap mmol/L BUN (9-20) mg/dL Creatinine (0.66-1.25) mg/dL Est GFR (CKD-EPI)AfAm (>60 ml/min/1.73 sqM) Est GFR (CKD-EPI)NonAf (>60 ml/min/1.73 sqM) Glucose (74-99) mg/dL Calcium (8.4-10.2) mg/dL Magnesium (1.6-2.3) mg/dL Total Bilirubin (0.2-1.3) mg/dL AST (17-59) U/L ALT (4-49) U/L Alkaline Phosphatase (38-126) U/L Troponin I (0.000-0.034) ng/mL NT-Pro-B Natriuret Pep pg/mL Total Protein (6.3-8.2) g/dL Albumin (3.5-5.0) g/dL Lipase (23-300) U/L Urine Color Colorless Urine Appearance Clear (Clear) Urine pH 7.0 (5.0-8.0) Ur Specific [place] 1.009 (1.001-1.035) Urine Protein Trace H (Negative) Urine Glucose (UA) Negative (Negative) Urine Ketones Negative (Negative) Urine Blood Negative (Negative) Urine Nitrite Negative (Negative) Urine Bilirubin Negative (Negative) Urine Urobilinogen <2.0 (<2.0) mg/dL Ur Leukocyte Esterase Negative (Negative) Influenza Type A (PCR) (Not Detectd) Influenza Type B (PCR) (Not Detectd) RSV (PCR) (Not Detectd) SARS-CoV-2 (PCR) (Not Detectd) 09/26/23 09/26/23 09/26/23 Range/Units 09:12 09:12 09:12 WBC (3.8-10.6) k/uL RBC (4.30-5.90) m/uL Hgb (13.0-17.5) gm/dL Hct (39.0-53.0) % MCV (80.0-100.0) fL MCH (25.0-35.0) pg MCHC (31.0-37.0) g/dL RDW (11.5-15.5) % Plt Count (150-450) k/uL MPV Neutrophils % % Lymphocytes % % Monocytes % % Eosinophils % % Basophils % % Neutrophils # (1.3-7.7) k/uL Lymphocytes # (1.0-4.8) k/uL Monocytes # (0-1.0) k/uL Eosinophils # (0-0.7) k/uL Basophils # (0-0.2) k/uL Hyperchromasia PT (10.0-12.5) sec INR (<1.2) APTT (22.0-30.0) sec Sodium 117 L* (137-145) mmol/L Potassium 1.8 L* (3.5-5.1) mmol/L Chloride 71 L* (98-107) mmol/L Carbon Dioxide 24 (22-30) mmol/L Anion Gap 22 mmol/L BUN 74 H (9-20) mg/dL Creatinine 2.68 H (0.66-1.25) mg/dL Est GFR (CKD-EPI)AfAm 26 (>60 ml/min/1.73 sqM) Est GFR (CKD-EPI)NonAf 23 (>60 ml/min/1.73 sqM) Glucose 254 H (74-99) mg/dL Calcium 8.3 L (8.4-10.2) mg/dL Magnesium 1.5 L (1.6-2.3) mg/dL Total Bilirubin 1.7 H (0.2-1.3) mg/dL AST 79 H (17-59) U/L ALT 51 H (4-49) U/L Alkaline Phosphatase 106 (38-126) U/L Troponin I 0.315 H* (0.000-0.034) ng/mL NT-Pro-B Natriuret Pep 81301 pg/mL Total Protein 6.6 (6.3-8.2) g/dL Albumin 4.2 (3.5-5.0) g/dL Lipase 211 (23-300) U/L Urine Color Urine Appearance (Clear) Urine pH (5.0-8.0) Ur Specific [place] (1.001-1.035) Urine Protein (Negative) Urine Glucose (UA) (Negative) Urine Ketones (Negative) Urine Blood (Negative) Urine Nitrite (Negative) Urine Bilirubin (Negative) Urine Urobilinogen (<2.0) mg/dL Ur Leukocyte Esterase (Negative) Influenza Type A (PCR) Not Detected (Not Detectd) Influenza Type B (PCR) Not Detected (Not Detectd) RSV (PCR) Not Detected (Not Detectd) SARS-CoV-2 (PCR) Detected A (Not Detectd) 09/26/23 Range/Units 10:05 WBC (3.8-10.6) k/uL RBC (4.30-5.90) m/uL Hgb (13.0-17.5) gm/dL Hct (39.0-53.0) % MCV (80.0-100.0) fL MCH (25.0-35.0) pg MCHC (31.0-37.0) g/dL RDW (11.5-15.5) % Plt Count (150-450) k/uL MPV Neutrophils % % Lymphocytes % % Monocytes % % Eosinophils % % Basophils % % Neutrophils # (1.3-7.7) k/uL Lymphocytes # (1.0-4.8) k/uL Monocytes # (0-1.0) k/uL Eosinophils # (0-0.7) k/uL Basophils # (0-0.2) k/uL Hyperchromasia PT (10.0-12.5) sec INR (<1.2) APTT (22.0-30.0) sec Sodium 118 L* (137-145) mmol/L Potassium 1.8 L* (3.5-5.1) mmol/L Chloride 74 L* (98-107) mmol/L Carbon Dioxide 28 (22-30) mmol/L Anion Gap 16 mmol/L BUN 75 H (9-20) mg/dL Creatinine 2.42 H (0.66-1.25) mg/dL Est GFR (CKD-EPI)AfAm 30 (>60 ml/min/1.73 sqM) Est GFR (CKD-EPI)NonAf 26 (>60 ml/min/1.73 sqM) Glucose 215 H (74-99) mg/dL Calcium 7.7 L (8.4-10.2) mg/dL Magnesium (1.6-2.3) mg/dL Total Bilirubin 1.6 H (0.2-1.3) mg/dL AST 71 H (17-59) U/L ALT 37 (4-49) U/L Alkaline Phosphatase 92 (38-126) U/L Troponin I (0.000-0.034) ng/mL NT-Pro-B Natriuret Pep pg/mL Total Protein 6.2 L (6.3-8.2) g/dL Albumin 3.8 (3.5-5.0) g/dL Lipase (23-300) U/L Urine Color Urine Appearance (Clear) Urine pH (5.0-8.0) Ur Specific [place] (1.001-1.035) Urine Protein (Negative) Urine Glucose (UA) (Negative) Urine Ketones (Negative) Urine Blood (Negative) Urine Nitrite (Negative) Urine Bilirubin (Negative) Urine Urobilinogen (<2.0) mg/dL Ur Leukocyte Esterase (Negative) Influenza Type A (PCR) (Not Detectd) Influenza Type B (PCR) (Not Detectd) RSV (PCR) (Not Detectd) SARS-CoV-2 (PCR) (Not Detectd) - EKG Data -: EKG Interpreted by Me EKG Comments: 12-lead Electrocardiogram Interpretation Note EKG was reviewed and interpreted by myself. 12-lead ECG performed at 0855 is interpreted by me as revealing normal sinus rhythm with PACs and PVCs at a rate of 93 beats per minute. [place] is normal. [place] interval is 156 ms, QRS duration is 93 ms, QTc is 391 ms.. There were no ST or T wave abnormalities to suggest myocardial ischemia or injury. R wave progression across the precordium was satisfactory. By my interpretation this EKG is non-diagnostic for acute ischemia. Critical Care Time Critical Care Time: Yes Critical Care Time: 41 Disposition Clinical Impression: Hyponatremia, Hypokalemia, Elevated troponin, CKD (chronic kidney disease), COVID-19, Hypomagnesemia Disposition: ADMITTED IP TO THIS HOSP Condition: Serious Time of Disposition: 12:08
[2023-09-26 09:47] LABS: Prothrombin Time 10.6 sec (10.0-12.5)
[2023-09-26 09:53] LABS: AST 79 U/L (17-59); African American GFR (CKD) 26 (>60 ml/min/1.73 sqM); Albumin 4.2 g/dL (3.5-5.0); Alkaline Phosphatase 106 U/L (38-126); Anion Gap 22 mmol/L; Blood Urea Nitrogen 74 mg/dL (9-20); Calcium 8.3 mg/dL (8.4-10.2); Carbon Dioxide 24 mmol/L (22-30); Glucose 254 mg/dL (74-99); Lipase 211 U/L (23-300); Magnesium 1.5 mg/dL (1.6-2.3); Non-African American GFR(CKD) 23 (>60 ml/min/1.73 sqM); Total Bilirubin 1.7 mg/dL (0.2-1.3); Total Protein 6.6 g/dL (6.3-8.2)
[2023-09-26 09:55] LABS: Basophils % (A) 0 %; Eosinophils % (A) 0 %; HCT 36.4 % (39.0-53.0); HGB 13.1 gm/dL (13.0-17.5); Hyperchromasia Marked; Lymphocytes # (A) 0.9 k/uL (1.0-4.8); Lymphocytes % (A) 5 %; MCH 30.5 pg (25.0-35.0); MCHC 36.1 g/dL (31.0-37.0); MCV 84.6 fL (80.0-100.0); Mean Platelet Volume 8.4; Monocytes # (A) 1.2 k/uL (0-1.0); Monocytes % (A) 6 %; Neutrophils # (A) 17.9 k/uL (1.3-7.7); Neutrophils % (A) 89 %; Platelet Count 279 k/uL (150-450); RDW 13.5 % (11.5-15.5); WBC 20.1 k/uL (3.8-10.6)
[2023-09-26 10:00] LABS: ALT 51 U/L (4-49); Sodium 117 mmol/L (137-145)
[2023-09-26 10:01] LABS: Chloride 71 mmol/L (98-107); NT-Pro-B-Type Natriuretic Pept 14100 pg/mL; Potassium 1.8 mmol/L (3.5-5.1)
--- NOTE | 2023-09-26 10:01 | XR ---
EXAMINATION TYPE: XR chest 2V DATE OF EXAM: 09/26/2023 COMPARISON: 05/07/2023 TECHNIQUE: PA and lateral views submitted. HISTORY: Chest pain FINDINGS: The lungs are clear and there is no pneumothorax, pleural effusion, or focal pneumonia. Heart size normal and no overt failure. Osseous structures demonstrate hypertrophic and degenerative changes of the spine. Underlying emphysematous changes. Diffuse osteopenia with AC joint arthropathy. Biapical p leural thickening. IMPRESSION: 1. No acute process.
[2023-09-26 10:39] LABS: AST 71 U/L (17-59); African American GFR (CKD) 30 (>60 ml/min/1.73 sqM); Albumin 3.8 g/dL (3.5-5.0); Alkaline Phosphatase 92 U/L (38-126); Anion Gap 16 mmol/L; Blood Urea Nitrogen 75 mg/dL (9-20); Calcium 7.7 mg/dL (8.4-10.2); Carbon Dioxide 28 mmol/L (22-30); Glucose 215 mg/dL (74-99); Non-African American GFR(CKD) 26 (>60 ml/min/1.73 sqM); Total Bilirubin 1.6 mg/dL (0.2-1.3); Total Protein 6.2 g/dL (6.3-8.2)
[2023-09-26 10:44] LABS: ALT 37 U/L (4-49)
[2023-09-26 10:48] LABS: Chloride 74 mmol/L (98-107); Potassium 1.8 mmol/L (3.5-5.1); Sodium 118 mmol/L (137-145)
[2023-09-26] MEDS ORDERED: Potassium Replacement Protocol 1 EACH MISC MISCELLANE PRN ×2 (10:54→11:18)
[2023-09-26] MEDS: POTASSIUM CHLORIDE ER 20 MEQ TAB.ER PO ONE ×2 (11:22→18:36)
[2023-09-26] MEDS: POTASSIUM CHLORIDE ER 20 MEQ TAB.ER PO STA ×2 (11:34→17:52)
[2023-09-26] MEDS: POTASSIUM CHLORIDE 10 MEQ in WATER FOR INJECTION 1 100ML.BAG IVPB SCH ×2 (11:36→14:34)
[2023-09-26] MEDS: MAGNESIUM SULFATE-D5W PMX 1 GM in DEXTROSE/WATER 1 100ML.BAG IVPB SCH (11:40)
[2023-09-26] MEDS: SODIUM CHLORIDE 0.9% 1,000 ML IV STA (11:43)
[2023-09-26] MEDS ORDERED: NALOXONE 0.4 MG/ML 1 ML VIAL IV PRN ×2 (12:13→12:21)
[2023-09-26] MEDS ORDERED: CALCIUM CARBONATE 500 MG CHEWABLE PO PRN (12:33)
[2023-09-26] MEDS ORDERED: ACETAMINOPHEN TAB 325 MG TAB PO PRN (12:33)
[2023-09-26] MEDS ORDERED: ONDANSETRON 4 MG/2 ML VIAL IVP PRN (12:33)
[2023-09-26] MEDS ORDERED: MAG HYDROX/AL HYDROX/SIMETH 30 ML CUP PO PRN (12:33)
[2023-09-26] MEDS: MORPHINE SULFATE 2 MG/ML SYRINGE IVP STA (12:48)
--- NOTE | 2023-09-26 12:50 | P.NPCON ---
History of Present Illness - Reason for Consult chronic renal failure - History of Present Illness Reason for consultation: Chronic kidney disease History of present illness: Patient is a 72-year-old male seen in renal consultation for chronic kidney disease. Patient has chronic kidney disease stage IV. Patient has had multiple episodes of acute kidney injury in the past. Patient's creatinine in May 2023 was near 3 and is 2.42 today. Patient has history of GI bleed and also history of aortic valve endocarditis for which she has completed antibiotics. 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 Patient states he was on prednisone but stopped it about a month ago. Patient states he also received first dose of rituximab last week and was due to get second dose today. However when he went for his dose he was complaining of shortness of breath and chest discomfort and was sent to the ER. Patient tested positive for COVID-19. Patient states since he received rituximab his oral intake has been poor and has been having vomiting. He denies diarrhea. Patient states he has been drinking quite a bit of fluids including 3 bottles of water, couple coffee, cup of orange juice. Patient states he has not been taking any diuretics. He denies history of malignancy. Denies edema. Denies gross hematuria or dysuria. Denies use of nonsteroidals. Denies fever. Patient was noted to be hyponatremic with sodium level of 117 and also hypokalemic with potassium level of 1.8. He received a 500 cc bolus of normal saline. Vital signs are stable. General: No acute distress. HEENT: Head exam is unremarkable. LUNGS: No audible rhonchi or wheezes. HEART: Rate and Rhythm are regular. ABDOMEN: Nontender. EXTREMITITES: No edema. Past Medical History Past Medical History: Heart Failure, Hyperlipidemia, Hypertension, Renal Disease Additional Past Medical History / Comment(s): Cardiomyopathy, History of Any Multi-Drug Resistant Organisms: None Reported Past Surgical History: No Surgical Hx Reported Past Anesthesia/Blood Transfusion Reactions: Unable to Obtain Additional Past Anesthesia/Blood Transfusion Reaction / Comment(s): Pt states he has never had surgery. Past Psychological History: No Psychological Hx Reported Smoking Status: Current every day smoker Past Alcohol Use History: Rare Past Drug Use History: Marijuana - Past Family History Father Family Medical History: Diabetes Mellitus, Myocardial Infarction ([place]) Additional Family Medical History / Comment(s): Had leg amputation Mother History Unknown: Yes Family Medical History: No Reported History Sister(s) Family Medical History: Diabetes Mellitus Additional Family Medical History / Comment(s): 1 sister had arm amputated due to diabetes Medications and Allergies Home Medications Medication Instructions Recorded Confirmed Type Atorvastatin [Lipitor] 40 mg PO HS #30 tab 08/17/20 09/26/23 Rx Isosorbide Mononitrate ER [Imdur] 60 mg PO DAILY #30 tab.er.24h 08/17/20 09/26/23 Rx amLODIPine [Norvasc] 10 mg PO DAILY #30 tab 08/17/20 09/26/23 Rx hydrALAZINE HCL [Apresoline] 50 mg PO TID-W/MEALS 05/06/23 09/26/23 History Pantoprazole [Protonix] 40 mg PO DAILY 30 Days #30 tab 05/10/23 09/26/23 Rx predniSONE 50 mg PO DAILY 14 Days #14 tab 05/10/23 09/26/23 Rx metOLazone [Zaroxolyn] 5 mg PO Q2D 09/26/23 09/26/23 History Allergies Allergy/AdvReac Type Severity Reaction Status Date / Time No Known Allergies Allergy Verified 09/26/23 08:49 Physical Exam Vitals: Vital Signs Temp Pulse Resp BP Pulse Ox 09/26/23 09:49 105 H 18 132/93 96 09/26/23 08:49 92 18 132/93 97 09/26/23 08:44 98.1 F 100 18 90/49 98 Intake and Output 09/25/23 09/26/23 09/26/23 22:59 06:59 14:59 Other: Weight 83.461 kg Results - Lab Results Most recent lab results Calcium 7.7 mg/dL (8.4-10.2) L 09/26/23 10:05 Magnesium 1.5 mg/dL (1.6-2.3) L 09/26/23 09:12 09/26/23 09:12 09/26/23 10:05 Assessment and Plan Plan: Assessment: 1. Acute kidney injury secondary to ATN. Multiple acute kidney injury episodes in the last 4 to 5 months related to GI bleed as well as aortic valve endocarditis. Creatinine was as high as above 4. This admission creatinine is 2.42. 2. Biopsy-proven crescentic glomerulonephritis. Patient received first dose of rituximab a week prior to admission. Has not been taking prednisone for over a month now. 3. 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 Sodium level 117 on admission. 4. Hypokalemia from poor intake. Magnesium also slightly low. Patient states he has not been taking any diuretics recently. 5. Hypomagnesemia from poor intake. 6. Chronic diastolic CHF with mild to moderate mitral regurgitation. 7. Acute COVID-19 infection. 8. Hypertension with chronic kidney disease. 9. Chronic kidney disease stage IIIb with creatinine near 1.5 in May 2021. Plan: Start normal saline at 75 cc an hour. Replace potassium and magnesium. Repeat BMP at 3 PM today. Resume prednisone once acute infection resolves. Patient to resume rituximab outpatient once acute infection resolves. Check renal ultrasound. Check urinalysis. Continue to monitor renal function and urine output. Recommend admission to ICU. Discussed with ER physician. Thank you for the consultation. I will continue to follow the patient with you during his hospital stay.
--- NOTE | 2023-09-26 12:57 | P.HPIM ---
History of Present Illness H&P Date: 09/26/23 Chief Complaint: Chest pain * 72-year-old gentleman with past medical history significant for chronic kidney disease, acute kidney injury, history of chronically elevated troponin, chronic hyponatremia, electrolyte abnormality hypokalemia, nonischemic cardiomyopathy, ejection fraction of 45% , hypertension, hyperlipidemia, anemia of chronic kidney disease who had hospitalization in May 2023 for renal failure and was seen by nephrology and plan for kidney biopsy outpatient * Patient presents back to the emergency department with complaints of cough, shortness of breath, chest pain. Patient said he is refusing infusions with nephrology outpatient patient has been complaining of abdominal pain as well * Workup obtained in ER showed critical labs including sodium of 117, potassium of 1.8, chloride of 71, BUN 74 creatinine 2.68 calcium of 8.3, magnesium of 1.5, AST 79 ALT 51 troponin of 0.315 N-terminal proBNP 73293 lipase of 211. Patient tested negative for influenza RSV however tested positive for COVID. Serum blood work include WBC 20.1 hemoglobin 13.1 platelet count of 279 INR of 1 * While in ER patient was given IV fluid bolus, potassium replacement, magnesium replacement started on maintenance fluid and admitted to medical floor with consultation from cardiology, medical ICU as well as nephrology * EKG obtained in ER showed sinus rhythm, ST segment depression in lead V2 and V3 was noted * Patient to be admitted to medical ICU, for further management REVIEW OF SYSTEMS: Fatigue, shortness of breath, chest pain CONSTITUTIONAL: Fatigue, shortness of breath, chest pain HEENT: No recent visual problems or hearing problems. Denied any sore throat. CARDIOVASCULAR: No chest pain, orthopnea, PND, no palpitations, no syncope. PULMONARY: No shortness of breath, no cough, no hemoptysis. GASTROINTESTINAL: No diarrhea, no nausea, no vomiting, no abdominal pain. NEUROLOGICAL: No headaches, no weakness, no numbness. HEMATOLOGICAL: Denies any bleeding or petechiae. GENITOURINARY: Denies any burning micturition, frequency, or urgency. MUSCULOSKELETAL/RHEUMATOLOGICAL:Fatigue, shortness of breath, chest pain ENDOCRINE: Denies any polyuria or polydipsia. PHYSICAL EXAMINATION: GENERAL: The patient is alert and oriented x3, ill appearance, pale apperance HEENT: Pupils are round and equally reacting to light. EOMI. CARDIOVASCULAR: S1 and S2 present. No murmurs, rubs, or gallops. PULMONARY: Chest is clear to auscultation, no wheezing or crackles. ABDOMEN: Soft, nontender, nondistended, normoactive bowel sounds. MUSCULOSKELETAL: No joint swelling or deformity. EXTREMITIES: No cyanosis, clubbing, or pedal edema. NEUROLOGICAL: Gross neurological examination did not reveal any focal deficits. SKIN: No rashes. Assessment and plan * Acute severe hyponatremia on chronic hyponatremia * Acute renal failure on chronic kidney disease stage IV * Severe hypokalemia * Hypomagnesemia * Elevated troponin rule out ACS * COVID-19 infection * History of hypertension * In regards to critical electrolyte abnormality nephrology consulted, continue to follow-up on electrolyte panel/patient resuscitated with fluids/to be m onitored in medical ICU * In regards to renal failure continue to monitor intake and output appreciate input from nephrology * In regards to severe hypokalemia potassium replaced follow-up lab work ordered * Regards to low magnesium magnesium replaced * In regards to elevated troponin follow-up on troponin ordered cardiology consulted * In regards to COVID-19 positive status, patient remains on room air will monitor * In regards to hypertension continue amlodipine * CODE STATUS is full code Past Medical History Past Medical History: Heart Failure, Hyperlipidemia, Hypertension, Renal Disease Additional Past Medical History / Comment(s): Cardiomyopathy, History of Any Multi-Drug Resistant Organisms: None Reported Past Surgical History: No Surgical Hx Reported Past Anesthesia/Blood Transfusion Reactions: Unable to Obtain Additional Past Anesthesia/Blood Transfusion Reaction / Comment(s): Pt states he has never had surgery. Past Psychological History: No Psychological Hx Reported Smoking Status: Current every day smoker Past Alcohol Use History: Rare Past Drug Use History: Marijuana - Past Family History Father Family Medical History: Diabetes Mellitus, Myocardial Infarction ([place]) Additional Family Medical History / Comment(s): Had leg amputation Mother History Unknown: Yes Family Medical History: No Reported History Sister(s) Family Medical History: Diabetes Mellitus Additional Family Medical History / Comment(s): 1 sister had arm amputated due to diabetes Medications and Allergies Home Medications Medication Instructions Recorded Confirmed Type Atorvastatin [Lipitor] 40 mg PO HS #30 tab 08/17/20 09/26/23 Rx Isosorbide Mononitrate ER [Imdur] 60 mg PO DAILY #30 tab.er.24h 08/17/20 09/26/23 Rx amLODIPine [Norvasc] 10 mg PO DAILY #30 tab 08/17/20 09/26/23 Rx hydrALAZINE HCL [Apresoline] 50 mg PO TID-W/MEALS 05/06/23 09/26/23 History Pantoprazole [Protonix] 40 mg PO DAILY 30 Days #30 tab 05/10/23 09/26/23 Rx predniSONE 50 mg PO DAILY 14 Days #14 tab 05/10/23 09/26/23 Rx metOLazone [Zaroxolyn] 5 mg PO Q2D 09/26/23 09/26/23 History Allergies Allergy/AdvReac Type Severity Reaction Status Date / Time No Known Allergies Allergy Verified 09/26/23 08:49 Physical Exam Vitals: Vital Signs Temp Pulse Resp BP Pulse Ox 09/26/23 09:49 105 H 18 132/93 96 09/26/23 08:49 92 18 132/93 97 09/26/23 08:44 98.1 F 100 18 90/49 98 Intake and Output 09/25/23 09/26/23 09/26/23 22:59 06:59 14:59 Other: Weight 83.461 kg Results CBC & Chem 7: 09/26/23 09:12 09/26/23 10:05 Labs: Abnormal Lab Results - Last 24 Hours (Table) 09/26/23 09/26/23 09/26/23 Range/Units 09:12 09:12 09:12 WBC 20.1 H (3.8-10.6) k/uL Hct 36.4 L (39.0-53.0) % Neutrophils # 17.9 H (1.3-7.7) k/uL Lymphocytes # 0.9 L (1.0-4.8) k/uL Monocytes # 1.2 H (0-1.0) k/uL Sodium 117 L* (137-145) mmol/L Potassium 1.8 L* (3.5-5.1) mmol/L Chloride 71 L* (98-107) mmol/L BUN 74 H (9-20) mg/dL Creatinine 2.68 H (0.66-1.25) mg/dL Glucose 254 H (74-99) mg/dL Calcium 8.3 L (8.4-10.2) mg/dL Magnesium 1.5 L (1.6-2.3) mg/dL Total Bilirubin 1.7 H (0.2-1.3) mg/dL AST 79 H (17-59) U/L ALT 51 H (4-49) U/L Troponin I 0.315 H* (0.000-0.034) ng/mL Total Protein (6.3-8.2) g/dL SARS-CoV-2 (PCR) (Not Detectd) 09/26/23 09/26/23 Range/Units 09:12 10:05 WBC (3.8-10.6) k/uL Hct (39.0-53.0) % Neutrophils # (1.3-7.7) k/uL Lymphocytes # (1.0-4.8) k/uL Monocytes # (0-1.0) k/uL Sodium 118 L* (137-145) mmol/L Potassium 1.8 L* (3.5-5.1) mmol/L Chloride 74 L* (98-107) mmol/L BUN 75 H (9-20) mg/dL Creatinine 2.42 H (0.66-1.25) mg/dL Glucose 215 H (74-99) mg/dL Calcium 7.7 L (8.4-10.2) mg/dL Magnesium (1.6-2.3) mg/dL Total Bilirubin 1.6 H (0.2-1.3) mg/dL AST 71 H (17-59) U/L ALT (4-49) U/L Troponin I (0.000-0.034) ng/mL Total Protein 6.2 L (6.3-8.2) g/dL SARS-CoV-2 (PCR) Detected A (Not Detectd)
[2023-09-26] MEDS ORDERED: metOLazone 5 MG TAB PO SCH (13:00)
--- NOTE | 2023-09-26 13:45 | P.CNPUL ---
History of Present Illness Consult date: 09/26/23 Requesting physician: Kishore Frias Reason for consult: other (Reviewed electrolytes imbalance) Chief complaint: Nausea vomiting and chest pain History of present illness: This is a 72-year-old white male with history of chronic kidney disease, presented to the ER today with 1 week history of chest pain, nausea vomiting, but no diarrhea. He is known to have history of nonischemic cardiomyopathy with ejection fraction of 45%, hypertension, chronic kidney disease and chronic anemia secondary to chronic disease. Workup in the ER showed evidence of severe hyponatremia with sodium as low as 117, low potassium of 1.8, elevated BUN of 74 and creatinine 2.68 in the meantime patient tested positive for COVID-19 infection troponin was also elevated at 0.315 and elevated BNP of over 14,000. Chest x-ray showed no evidence of acute process, no evidence of congestive heart failure and no evidence of pneumonia. EKG showed sinus rhythm, ST segment depression in lead V2 and V3, considering his critical labs and the presentation of chest pain, I was asked to see the patient in the ER, and I recommended ICU admission. Patient will receive IV fluids in the form of .9 normal saline, will correct his hypokalemia patient may or may not require 3% saline, in the meantime are also concerned about his elevated troponin, and rule out acute coronary syndrome. Review of Systems REVIEW OF SYSTEMS: CONSTITUTIONAL: Weakness and fatigue, no fever no chills. HEENT: Negative CARDIOVASCULAR: Chest pain as noted in HPI PULMONARY: No cough no wheezing or shortness of breath but he does have chest pain GASTROINTESTINAL: 1 week history of nausea and vomiting but no diarrhea no melena no hematemesis NEUROLOGICAL: No headaches, no weakness, no numbness. HEMATOLOGICAL: Negative GENITOURINARY: No dysuria frequency or urgency MUSCULOSKELETAL/RHEUMATOLOGICAL as noted in HPI mostly fatigue. ENDOCRINE: Denies any polyuria or polydipsia. Past Medical History Past Medical History: Heart Failure, Hyperlipidemia, Hypertension, Renal Disease Additional Past Medical History / Comment(s): Cardiomyopathy, History of Any Multi-Drug Resistant Organisms: None Reported Past Surgical History: No Surgical Hx Reported Past Anesthesia/Blood Transfusion Reactions: Unable to Obtain Additional Past Anesthesia/Blood Transfusion Reaction / Comment(s): Pt states he has never had surgery. Past Psychological History: No Psychological Hx Reported Smoking Status: Current every day smoker Past Alcohol Use History: Rare Past Drug Use History: Marijuana - Past Family History Father Family Medical History: Diabetes Mellitus, Myocardial Infarction ([place]) Additional Family Medical History / Comment(s): Had leg amputation Mother History Unknown: Yes Family Medical History: No Reported History Sister(s) Family Medical History: Diabetes Mellitus Additional Family Medical History / Comment(s): 1 sister had arm amputated due to diabetes Medications and Allergies Home Medications Medication Instructions Recorded Confirmed Type Atorvastatin [Lipitor] 40 mg PO HS #30 tab 08/17/20 09/26/23 Rx Isosorbide Mononitrate ER [Imdur] 60 mg PO DAILY #30 tab.er.24h 08/17/20 09/26/23 Rx amLODIPine [Norvasc] 10 mg PO DAILY #30 tab 08/17/20 09/26/23 Rx hydrALAZINE HCL [Apresoline] 50 mg PO TID-W/MEALS 05/06/23 09/26/23 History Pantoprazole [Protonix] 40 mg PO DAILY 30 Days #30 tab 05/10/23 09/26/23 Rx predniSONE 50 mg PO DAILY 14 Days #14 tab 05/10/23 09/26/23 Rx metOLazone [Zaroxolyn] 5 mg PO Q2D 09/26/23 09/26/23 History Allergies Allergy/AdvReac Type Severity Reaction Status Date / Time No Known Allergies Allergy Verified 09/26/23 08:49 Physical Exam Vitals: Vital Signs Temp Pulse Resp BP Pulse Ox 09/26/23 09:49 105 H 18 132/93 96 09/26/23 08:49 92 18 132/93 97 09/26/23 08:44 98.1 F 100 18 90/49 98 Intake and Output 09/25/23 09/26/23 09/26/23 22:59 06:59 14:59 Other: Weight 83.461 kg General: Reveals a 72-year-old white male in no distress Head: Atraumatic, normocephalic Skin: Skin is warm and dry and no rashes or lesions are noted. Eye: Pupils are equal, round and reactive to light, extra-ocular movements are intact; there is normal conjunctiva bilaterally. Ears, nose, mouth and throat: There are moist mucous membranes and no oral lesions. Neck: The neck is supple, there is no tenderness or JVD. Cardiovascular: There is a regular rate and rhythm. No murmur, rub or gallop is appreciated. Respiratory: Clear bilaterally no crackles rhonchi or wheezes Gastrointestinal: Soft nontender no megaly no rebound no guarding Musculoskeletal: Normal ROM, no tenderness, There is no pedal edema. There is no calf tenderness or swelling. No cords were appreciated. Neurological: CN II-XII intact, Cranial nerves III through XII are intact. There are no obvious motor or sensory deficits. Coordination appears grossly intact. Speech is normal. Psychiatric: Cooperative, appropriate mood & affect, normal judgment. Results - Laboratory Findings CBC and BMP: 09/26/23 09:12 09/26/23 10:05 PT/INR, D-dimer PT 10.6 sec (10.0-12.5) 09/26/23 09:12 INR 1.0 (<1.2) 09/26/23 09:12 Abnormal lab findings: Abnormal Labs 09/26/23 09/26/23 09/26/23 09:12 09:12 09:12 WBC 20.1 H Hct 36.4 L Neutrophils # 17.9 H Lymphocytes # 0.9 L Monocytes # 1.2 H Sodium 117 L* Potassium 1.8 L* Chloride 71 L* BUN 74 H Creatinine 2.68 H Glucose 254 H Calcium 8.3 L Magnesium 1.5 L Total Bilirubin 1.7 H AST 79 H ALT 51 H Troponin I 0.315 H* Total Protein SARS-CoV-2 (PCR) 09/26/23 09/26/23 09:12 10:05 WBC Hct Neutrophils # Lymphocytes # Monocytes # Sodium 118 L* Potassium 1.8 L* Chloride 74 L* BUN 75 H Creatinine 2.42 H Glucose 215 H Calcium 7.7 L Magnesium Total Bilirubin 1.6 H AST 71 H ALT Troponin I Total Protein 6.2 L SARS-CoV-2 (PCR) Detected A - Diagnostic Findings Chest x-ray: image reviewed (As noted in HPI) Assessment and Plan Assessment: Impression: Severe hyponatremia and hypokalemia most likely secondary to nausea and vomiting and dehydration. 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 Drew, patient is also known to have history of chronic diastolic congestive heart failure and moderate mitral regurgitation Recommendation: Admit to ICU Nephrology and cardiology to see on consultation Patient does not require any steroids or any remdesivir at this point for his COVID-19 infection Address abnormal electrolytes including low sodium low potassium and low magnesium and correct as per protocol. IV fluid presently in the form of 0.9 normal saline, may consider 3% saline if no significant improvement Close correction of his hyponatremia Close monitoring of electrolytes Renal ultrasound is pending Check urinary sodium, osmolality and serum osmolality. Will continue to follow. Time with Patient: Greater than 30
[2023-09-26] MEDS: MAG HYDROX/AL HYDROX/SIMETH 30 ML, HYOSCYAMINE ELIXIR 10 ML, LIDOCAINE VISCOUS 2% 10 ML PO STA (13:56)
[2023-09-26 13:58] LABS: Appearance,Urine Clear (Clear); Bilirubin,Urine Negative (Negative); Blood,Urine Negative (Negative); Color,Urine Colorless; Glucose,Urine (UA) Negative (Negative); Ketones,Urine Negative (Negative); Leukocyte Esterase,Urine Negative (Negative); Nitrite,Urine Negative (Negative); Protein,Urine Trace (Negative); Specific Gravity,Urine 1.009 (1.001-1.035); Urobilinogen,Urine <2.0 mg/dL (<2.0)
[2023-09-26] MEDS: hydrALAZINE HCL 50 MG TAB PO SCH (14:28)
--- NOTE | 2023-09-26 17:35 | US ---
EXAMINATION TYPE: US kidneys/renal and bladder DATE OF EXAM: 09/26/2023 Exam done portable in ICU COMPARISON: NONE CLINICAL INDICATION: Male, 72 years old with history of adryan; EXAM MEASUREMENTS: Right Kidney: 11.9 x 5.7 x 5.4 cm Left Kidney: 10.7 x 4.5 x 4.1 cm Right Kidney: No hydronephrosis or masses seen Left Kidney: limited visualization due to rib shadowing and overlying bowel gas, limiting evaluation of suspected inferior pole cyst. Bladder: not distended, waldron catheter Gallbladder sludge There is no evidence for hydronephrosis at this point in time. No nephrolithiasis is seen. No james s are identified. The urinary bladder is anechoic. Bilateral ureteral jets are seen. IMPRESSION: 1. No evidence of obstructive uropathy. 2. Biliary sludge.
[2023-09-26] MEDS: SODIUM CHLORIDE 3%(HYPERTONIC) 500 ML IV ONE (18:13)
[2023-09-26 20:35] LABS: African American GFR (CKD) 30 (>60 ml/min/1.73 sqM); Anion Gap 11 mmol/L; Blood Urea Nitrogen 67 mg/dL (9-20); Calcium 7.5 mg/dL (8.4-10.2); Carbon Dioxide 28 mmol/L (22-30); Chloride 79 mmol/L (98-107); Glucose 266 mg/dL (74-99); Non-African American GFR(CKD) 26 (>60 ml/min/1.73 sqM)
[2023-09-26 20:36] LABS: Sodium 118 mmol/L (137-145)
[2023-09-26 20:38] LABS: Potassium 2.3 mmol/L (3.5-5.1)
[2023-09-26] MEDS: ATORVASTATIN 40 MG TAB PO SCH (21:37)
[2023-09-26] MEDS: POTASSIUM CHLORIDE ER 10 MEQ TAB.ER.PRT PO STA (21:38)
[2023-09-26] MEDS: POTASSIUM CHLORIDE ER 10 MEQ TAB.ER.PRT PO ONE (22:37)
[2023-09-27 00:35] LABS: African American GFR (CKD) 33 (>60 ml/min/1.73 sqM); Anion Gap 7 mmol/L; Blood Urea Nitrogen 63 mg/dL (9-20); Calcium 7.6 mg/dL (8.4-10.2); Carbon Dioxide 30 mmol/L (22-30); Chloride 85 mmol/L (98-107); Glucose 199 mg/dL (74-99); Non-African American GFR(CKD) 28 (>60 ml/min/1.73 sqM); Potassium 2.8 mmol/L (3.5-5.1); Sodium 122 mmol/L (137-145)
[2023-09-27] MEDS: POTASSIUM CHLORIDE ER 20 MEQ TAB.ER PO ONE (01:33)
[2023-09-27 04:53] LABS: Basophils % (A) 0 %; Eosinophils % (A) 0 %; HCT 33.8 % (39.0-53.0); HGB 11.9 gm/dL (13.0-17.5); Lymphocytes % (A) 6 %; MCH 30.7 pg (25.0-35.0); MCHC 35.1 g/dL (31.0-37.0); MCV 87.5 fL (80.0-100.0); Mean Platelet Volume 8.1; Monocytes % (A) 6 %; Neutrophils # (A) 14.1 k/uL (1.3-7.7); Neutrophils % (A) 87 %; Platelet Count 220 k/uL (150-450); RBC 3.87 m/uL (4.30-5.90); RDW 13.8 % (11.5-15.5); WBC 16.3 k/uL (3.8-10.6)
[2023-09-27 05:07] LABS: ALT 37 U/L (4-49); AST 63 U/L (17-59); African American GFR (CKD) 35 (>60 ml/min/1.73 sqM); Albumin 3.7 g/dL (3.5-5.0); Alkaline Phosphatase 108 U/L (38-126); Anion Gap 8 mmol/L; Blood Urea Nitrogen 61 mg/dL (9-20); Calcium 8.1 mg/dL (8.4-10.2); Carbon Dioxide 29 mmol/L (22-30); Chloride 89 mmol/L (98-107); Glucose 173 mg/dL (74-99); Non-African American GFR(CKD) 30 (>60 ml/min/1.73 sqM); Potassium 3.4 mmol/L (3.5-5.1); Sodium 126 mmol/L (137-145); Total Bilirubin 1.4 mg/dL (0.2-1.3); Total Protein 6.1 g/dL (6.3-8.2)
[2023-09-27 05:09] LABS: African American GFR (CKD) 35 (>60 ml/min/1.73 sqM); Anion Gap 9 mmol/L; Blood Urea Nitrogen 61 mg/dL (9-20); Calcium 8.1 mg/dL (8.4-10.2); Carbon Dioxide 28 mmol/L (22-30); Chloride 89 mmol/L (98-107); Glucose 173 mg/dL (74-99); Non-African American GFR(CKD) 31 (>60 ml/min/1.73 sqM); Potassium 3.5 mmol/L (3.5-5.1); Sodium 126 mmol/L (137-145)
[2023-09-27] MEDS: PANTOPRAZOLE 40 MG TABLET PO SCH (06:08)
[2023-09-27] MEDS: POTASSIUM CHLORIDE ER 20 MEQ TAB.ER PO STA ×2 (06:08→10:26)
[2023-09-27] MEDS: DEXTROSE 5% IN WATER 1,000 ML IV ONE (08:09)
[2023-09-27] MEDS: ISOSORBIDE MONONITRATE ER 60 MG TAB.ER.24H PO SCH (08:10)
[2023-09-27] MEDS: ENOXAPARIN 30 MG/0.3 ML SYRINGE SQ SCH (08:10)
[2023-09-27] MEDS: NITROGLYCERIN OINT 1 INCH/GM PACKET TOPICAL SCH (08:10)
[2023-09-27] MEDS: DESMOPRESSIN ACETATE 4 MCG/ML VIAL (MDV) IV ONE (08:10)
[2023-09-27] MEDS: amLODIPine 10 MG TAB PO SCH (08:12)
[2023-09-27 08:28] LABS: African American GFR (CKD) 36 (>60 ml/min/1.73 sqM); Anion Gap 11 mmol/L; Blood Urea Nitrogen 56 mg/dL (9-20); Calcium 8.3 mg/dL (8.4-10.2); Carbon Dioxide 25 mmol/L (22-30); Chloride 90 mmol/L (98-107); Glucose 281 mg/dL (74-99); Non-African American GFR(CKD) 31 (>60 ml/min/1.73 sqM); Potassium 3.7 mmol/L (3.5-5.1); Sodium 126 mmol/L (137-145)
[2023-09-27] MEDS ORDERED: predniSONE 50 MG TAB PO SCH (09:00)
--- NOTE | 2023-09-27 09:00 | CONS ---
CONSULTATION HISTORY OF PRESENT ILLNESS: This is a 72-year-old gentleman with a known history of hypertension and hyperlipidemia, also has a chronic kidney disease. He came into the hospital because of nausea, vomiting, and also had a feverish feeling with body aches and also complained of some chest pain, very sharp in nature, seem more like a chest wall pain. His main concern was coughing and also he has what seems to be an underlying kidney disorder with chronic kidney disease. He sees Nephrology, Dr. Claudio apparently on a regular basis. He has chronic kidney disease stage 4 with multiple episodes of acute kidney injury in the past. Creatinine is around 3.0 to 2.5. He also has history of GI bleed, aortic valve endocarditis, for which he completed antibiotics. He had a kidney biopsy in May 2023, which revealed glomerulonephritis with elevated MPO titers. He was on prednisone, which was stopped a month ago. After arrival, he was found to be quite dehydrated with hyponatremia, sodium level of 117 and potassium of 1.8. He received a bolus and also electrolytes were corrected. Potassium this morning is 3.5. I was asked to see him mainly because of elevated troponins. His last echocardiogram was performed in March of last year, which revealed a normal systolic function. At the time of my evaluation, he is resting comfortably, feels better than what he did when he came in. He is afebrile. White count is however elevated. He denies any chest pain. His cough is also better. He has mild aortic stenosis, normal LV systolic function by echo. PAST MEDICAL HISTORY: 1. Chronic kidney disease with glomerulonephritis, has been on steroids in the past. 2. History of aortic valve endocarditis seen in the chart, details unclear and unavailable. 3. History of hypertension. 4. Hyperlipidemia. 5. The patient currently has tobacco abuse and also marijuana abuse. MEDICATIONS: Medications at home include, 1. Atorvastatin 40 mg daily. 2. Imdur 30 mg daily. 3. Amlodipine 10 mg daily. 4. Hydralazine 50 mg t.i.d. 5. Prednisone which he stopped taking. 6. Metolazone 5 mg every other day. LABORATORY DATA: Suggest a potassium of 1.8, sodium of 117. He also has acute COVID infection with chest x-ray that seems unremarkable so far. Please refer to the detailed note of Dr. Claudio for other information. Laboratory profile and troponin profile specifically does not suggest any acute myocardial injury. His troponin on arrival was 0.2 and repeat one was 0.2 and another one yesterday morning was 0.3. This profile does not represent a myocardial injury, could be related to his chronic kidney disease [place] [id number], could also be related to some volume overload type picture. PHYSICAL EXAMINATION: VITAL SIGNS: Blood pressure is 118/70, pulse rate 80 per minute. NECK: JVD 1 cm. No carotid bruit. CARDIOVASCULAR: S1, S2 heard normally. Short systolic murmur at the base. LUNGS: Revealed bilateral scattered rhonchi. ABDOMEN: Soft. LOWER EXTREMITIES: Revealed diminished pulses. CENTRAL NERVOUS SYSTEM: Grossly within normal limits. EKG revealed sinus mechanism with nonspecific ST and T-wave changes and isolated PACs. IMPRESSION: 1. Acute COVID infection. 2. Chronic kidney disease. 3. Elevated troponin, not suggestive of myocardial injury. 4. History of smoking and probably some chronic obstructive pulmonary disease. RECOMMENDATIONS: Cardiac-benavides, no intervention. I would recommend that we do a limited echo to assess LV function. The patient's clinical picture does not suggest a [id number] UT. I will continue. Electrolyte imbalance has been corrected to some extent. Hyponatremia improved and hypokalemia has improved. I agree with electrolyte homeostasis efforts. I will see the patient as needed. MMODL / IJN: [id number] /
--- NOTE | 2023-09-27 11:10 | P.PN ---
Subjective Patient is seen in follow-up for hyponatremia and chronic kidney disease. Patient received 3% saline overnight. Sodium level is up to 126 755 this morning and repeat at 10:30 AM was 124. He received a dose of DDAVP this morning to slow the correction of hyponatremia. Nonoliguric. Renal function stable. Denies chest pain or shortness of breath. States he feels well. Vital signs are stable. General: No acute distress. HEENT: Head exam is unremarkable. LUNGS: No audible rhonchi or wheezes. HEART: Rate and Rhythm are regular. ABDOMEN: Nontender. EXTREMITITES: No edema. Chronic changes noted. Objective - Vital Signs Vital signs: Vital Signs Temp 98 F 09/27/23 08:00 Pulse 86 09/27/23 08:00 Resp 21 09/27/23 08:00 BP 119/79 09/27/23 08:00 Pulse Ox 95 09/27/23 08:00 FiO2 Intake & Output 09/26/23 09/27/23 09/27/23 18:59 06:59 18:59 Intake Total 375 740 100 Output Total 1230 2550 725 Balance -855 -1810 -625 Weight 83.6 kg 84.8 kg Intake: Intake, IV Titration 375 150 0 Amount Potassium Chloride 10 meq 200 In Water For Injection 1 100ml.bag @ 100 mls/hr IVPB Q1H [facility] Rx#: [id number] Sodium Chloride 0.9% 1, 150 000 ml @ 75 mls/hr IV . [id number] STA Rx#:[id number] Sodium Chloride 3%( 25 150 0 Hypertonic) 500 ml @ 25 mls/hr IV .Q20H ONE Rx#: [id number] Oral 590 100 Output: Urine 1230 2550 725 Other: Voiding Method Indwelling Catheter Indwelling Catheter Indwelling Catheter # Bowel Movements 0 - Labs CBC & Chem 7: 09/27/23 03:52 09/27/23 10:30 Labs: Abnormal Lab Results - Last 24 Hours (Table) 09/26/23 09/26/23 09/26/23 Range/Units 09:12 15:02 16:25 WBC (3.8-10.6) k/uL RBC (4.30-5.90) m/uL Hgb (13.0-17.5) gm/dL Hct (39.0-53.0) % Neutrophils # (1.3-7.7) k/uL Sodium (137-145) mmol/L Potassium (3.5-5.1) mmol/L Chloride (98-107) mmol/L BUN (9-20) mg/dL Creatinine (0.66-1.25) mg/dL Glucose (74-99) mg/dL Calcium (8.4-10.2) mg/dL Total Bilirubin (0.2-1.3) mg/dL AST (17-59) U/L Troponin I 0.230 H* 0.231 H* (0.000-0.034) ng/mL Total Protein (6.3-8.2) g/dL Urine Protein Trace H (Negative) 09/26/23 09/26/23 09/26/23 Range/Units 16:25 20:01 23:50 WBC (3.8-10.6) k/uL RBC (4.30-5.90) m/uL Hgb (13.0-17.5) gm/dL Hct (39.0-53.0) % Neutrophils # (1.3-7.7) k/uL Sodium 118 L* 118 L* 122 L (137-145) mmol/L Potassium 2.0 L* 2.3 L* 2.8 L (3.5-5.1) mmol/L Chloride 78 L 79 L 85 L (98-107) mmol/L BUN 67 H 63 H (9-20) mg/dL Creatinine 2.38 H 2.22 H (0.66-1.25) mg/dL Glucose 266 H 199 H (74-99) mg/dL Calcium 7.5 L 7.6 L (8.4-10.2) mg/dL Total Bilirubin (0.2-1.3) mg/dL AST (17-59) U/L Troponin I (0.000-0.034) ng/mL Total Protein (6.3-8.2) g/dL Urine Protein (Negative) 09/27/23 09/27/23 09/27/23 Range/Units 03:52 03:52 03:52 WBC 16.3 H (3.8-10.6) k/uL RBC 3.87 L (4.30-5.90) m/uL Hgb 11.9 L (13.0-17.5) gm/dL Hct 33.8 L (39.0-53.0) % Neutrophils # 14.1 H (1.3-7.7) k/uL Sodium 126 L 126 L (137-145) mmol/L Potassium 3.4 L (3.5-5.1) mmol/L Chloride 89 L 89 L (98-107) mmol/L BUN 61 H 61 H (9-20) mg/dL Creatinine 2.11 H 2.09 H (0.66-1.25) mg/dL Glucose 173 H 173 H (74-99) mg/dL Calcium 8.1 L 8.1 L (8.4-10.2) mg/dL Total Bilirubin 1.4 H (0.2-1.3) mg/dL AST 63 H (17-59) U/L Troponin I (0.000-0.034) ng/mL Total Protein 6.1 L (6.3-8.2) g/dL Urine Protein (Negative) 09/27/23 09/27/23 Range/Units 07:55 10:30 WBC (3.8-10.6) k/uL RBC (4.30-5.90) m/uL Hgb (13.0-17.5) gm/dL Hct (39.0-53.0) % Neutrophils # (1.3-7.7) k/uL Sodium 126 L 124 L (137-145) mmol/L Potassium (3.5-5.1) mmol/L Chloride 90 L (98-107) mmol/L BUN 56 H (9-20) mg/dL Creatinine 2.05 H (0.66-1.25) mg/dL Glucose 281 H (74-99) mg/dL Calcium 8.3 L (8.4-10.2) mg/dL Total Bilirubin (0.2-1.3) mg/dL AST (17-59) U/L Troponin I (0.000-0.034) ng/mL Total Protein (6.3-8.2) g/dL Urine Protein (Negative) Assessment and Plan Plan: Assessment: 1. Acute kidney injury secondary to ATN. Multiple acute kidney injury episodes in the last 4 to 5 months related to GI bleed as well as aortic valve endocarditis. Creatinine was as high as above 4. Renal function fairly stable this admission. Creatinine 2.05 today. No hydronephrosis noted on kidney ultrasound. UA fairly benign. 2. Biopsy-proven crescentic glomerulonephritis. Patient received first dose of rituximab a week prior to admission. Has not been taking prednisone for over a month now. 3. 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 Sodium level 117 on admission September 25 9:12 AM and was 124 this morning. Status post 3% saline and also dose of DDAVP given this morning. Afternoon cortisol level 15.7. A.m. cortisol level pending. 4. Hypokalemia from poor intake. Magnesium also slightly low. Patient states he has not been taking any diuretics recently. Replaced. Better. 5. Hypomagnesemia from poor intake. Replaced. Better. 6. Chronic diastolic CHF with mild to moderate mitral regurgitation. 7. Acute COVID-19 infection. 8. Hypertension with chronic kidney disease. Controlled. 9. Chronic kidney disease stage IIIb with creatinine near 1.5 in May 2021. Plan: Currently off fluids. Encouraged oral intake. Repeat BMP this afternoon. Follow-up a.m. cortisol level. Check TSH. Echocardiogram pending. Resume prednisone once acute infection resolves. Patient to resume rituximab outpatient once acute infection resolves.
--- NOTE | 2023-09-27 11:52 | CA ---
Transthoracic Echo Report Name: Nadeem Moreno Age: 72 Gender: M : 1950 Exam Date: 09/27/2023 07:40 Exam Location: [facility] Ht (in): 68 Wt (lb): 186 Ordering Physician: Elda Rider MD Attending/Referring Phys: [employer] Machine Operator Debby Billy RDCS Procedure CPT: Indications: Chest Pain Cardiac Hx: Technical Quality: Technically difficult study Contrast 1: Definity Total Dose (mL): 2 Contrast 2: Total Dose (mL): MEASUREMENTS (Male / Female) Normal Values FINDINGS Left Ventricle Limited study. Normal left ventricular systolic function with no obvious regional wall motion abnormalities. Left ventricular ejection fraction is estimated at 55-60 %. Right Ventricle Right Atrium Left Atrium Mitral Valve Aortic Valve Tricuspid Valve Pulmonic Valve Pericardium No pericardial effusion. Aorta CONCLUSIONS Limited study. Left ventricular ejection fraction is estimated at 55-60 %. Normal left ventricular systolic function with no obvious regional wall motion abnormalities. No pericardial effusion. Previewed by: Dr Sourav Adler (Electronically Signed) Final Date: 27 September 2023 11:51
--- NOTE | 2023-09-27 12:43 | P.PN ---
Subjective Progress Note Date: 09/27/23 Principal diagnosis: Severe hypovolemic hyponatremia and hypokalemia This is a 72-year-old white male with history of chronic kidney disease, presented to the ER today with 1 week history of chest pain, nausea vomiting, but no diarrhea. He is known to have history of nonischemic cardiomyopathy with ejection fraction of 45%, hypertension, chronic kidney disease and chronic a nemia secondary to chronic disease. Workup in the ER showed evidence of severe hyponatremia with sodium as low as 117, low potassium of 1.8, elevated BUN of 74 and creatinine 2.68 in the meantime patient tested positive for COVID-19 infection troponin was also elevated at 0.315 and elevated BNP of over 14,000. Chest x-ray showed no evidence of acute process, no evidence of congestive heart failure and no evidence of pneumonia. EKG showed sinus rhythm, ST segment depression in lead V2 and V3, considering his critical labs and the presentation of chest pain, I was asked to see the patient in the ER, and I recommended ICU admission. Patient will receive IV fluids in the form of .9 normal saline, will correct his hypokalemia patient may or may not require 3% saline, in the meantime are also concerned about his elevated troponin, and rule out acute coronary syndrome. Patient was reevaluated today on 09/27/2023, patient is doing better today, he is now on room air, potassium is 3.7, sodium is up to 126, BUN is 56 creatinine 2.05. Patient did receive 3% saline overnight, and his sodium went as high as 126. He also received a dose of DDAVP this morning, clinically the patient is doing great, does not seem to be in any distress, on physical examination he does have rhonchi and wheezes bilaterally, patient does have underlying COPD in addition to this the patient has acute on chronic kidney injury secondary to acute tubular necrosis, he had biopsy-proven crescentic glomerulonephritis. And has been receiving rituximab on outpatient basis. Looking back at the history, patient has been experiencing 1 week history of nausea and vomiting. And I believe that could easily explain his severe hyponatremia and hypokalemia although in addition to this the patient does have acute COVID-19 infection. She is also on another contributing factor to all of the above at any rate considering the improvement and considering the patient is not developing any neurological symptoms, I believe it is safe to transfer the patient out of the ICU to a monitored bed and selective or monitored bed on the medical surgical floor for his COPD, will continue bronchodilators and updrafts, will also add Solu-Medrol for his bronchospasm noted on physical examination today Objective - Vital Signs Vital signs: Vital Signs Temp 98.2 F 09/27/23 12:00 Pulse 95 09/27/23 12:00 Resp 17 09/27/23 12:00 BP 113/79 09/27/23 12:00 Pulse Ox 996 H 09/27/23 12:00 FiO2 Intake & Output 09/26/23 09/27/23 09/27/23 18:59 06:59 18:59 Intake Total 375 740 100 Output Total 1230 2550 875 Balance -855 -1810 -775 Weight 83.6 kg 84.8 kg Intake: Intake, IV Titration 375 150 0 Amount Potassium Chloride 10 meq 200 In Water For Injection 1 100ml.bag @ 100 mls/hr IVPB Q1H [facility] Rx#: [id number] Sodium Chloride 0.9% 1, 150 000 ml @ 75 mls/hr IV . [id number] STA Rx#:[id number] Sodium Chloride 3%( 25 150 0 Hypertonic) 500 ml @ 25 mls/hr IV .Q20H ONE Rx#: [id number] Oral 590 100 Output: Urine 1230 2550 875 Other: Voiding Method Indwelling Catheter Indwelling Catheter Indwelling Catheter # Bowel Movements 0 - Exam General: Reveals a 72-year-old white male in no distress, on room air Head: Atraumatic, normocephalic Skin: Skin is warm and dry and no rashes or lesions are noted. Eye: Pupils are equal, round and reactive to light, extra-ocular movements are intact; there is normal conjunctiva bilaterally. Ears, nose, mouth and throat: There are moist mucous membranes and no oral lesions. Neck: The neck is supple, there is no tenderness or JVD. Cardiovascular: There is a regular rate and rhythm. No murmur, rub or gallop is appreciated. Respiratory: Rhonchi and wheezes noted bilaterally today Gastrointestinal: Soft nontender no megaly no rebound no guarding Musculoskeletal: Normal ROM, no tenderness, There is no pedal edema. There is no calf tenderness or swelling. No cords were appreciated. Neurological: CN II-XII intact, Cranial nerves III through XII are intact. There are no obvious motor or sensory deficits. Coordination appears grossly intact. Speech is normal. Psychiatric: Cooperative, appropriate mood & affect, normal judgment. - Labs CBC & Chem 7: 09/27/23 03:52 09/27/23 10:30 Labs: Abnormal Lab Results - Last 24 Hours (Table) 09/26/23 09/26/23 09/26/23 Range/Units 09:12 15:02 16:25 WBC (3.8-10.6) k/uL RBC (4.30-5.90) m/uL Hgb (13.0-17.5) gm/dL Hct (39.0-53.0) % Neutrophils # (1.3-7.7) k/uL Sodium (137-145) mmol/L Potassium (3.5-5.1) mmol/L Chloride (98-107) mmol/L BUN (9-20) mg/dL Creatinine (0.66-1.25) mg/dL Glucose (74-99) mg/dL Calcium (8.4-10.2) mg/dL Total Bilirubin (0.2-1.3) mg/dL AST (17-59) U/L Troponin I 0.230 H* 0.231 H* (0.000-0.034) ng/mL Total Protein (6.3-8.2) g/dL Cortisol (3.1-22.4) UG/DL Urine Protein Trace H (Negative) 09/26/23 09/26/23 09/26/23 Range/Units 16:25 20:01 23:50 WBC (3.8-10.6) k/uL RBC (4.30-5.90) m/uL Hgb (13.0-17.5) gm/dL Hct (39.0-53.0) % Neutrophils # (1.3-7.7) k/uL Sodium 118 L* 118 L* 122 L (137-145) mmol/L Potassium 2.0 L* 2.3 L* 2.8 L (3.5-5.1) mmol/L Chloride 78 L 79 L 85 L (98-107) mmol/L BUN 67 H 63 H (9-20) mg/dL Creatinine 2.38 H 2.22 H (0.66-1.25) mg/dL Glucose 266 H 199 H (74-99) mg/dL Calcium 7.5 L 7.6 L (8.4-10.2) mg/dL Total Bilirubin (0.2-1.3) mg/dL AST (17-59) U/L Troponin I (0.000-0.034) ng/mL Total Protein (6.3-8.2) g/dL Cortisol (3.1-22.4) UG/DL Urine Protein (Negative) 09/27/23 09/27/23 09/27/23 Range/Units 03:52 03:52 03:52 WBC 16.3 H (3.8-10.6) k/uL RBC 3.87 L (4.30-5.90) m/uL Hgb 11.9 L (13.0-17.5) gm/dL Hct 33.8 L (39.0-53.0) % Neutrophils # 14.1 H (1.3-7.7) k/uL Sodium 126 L 126 L (137-145) mmol/L Potassium 3.4 L (3.5-5.1) mmol/L Chloride 89 L 89 L (98-107) mmol/L BUN 61 H 61 H (9-20) mg/dL Creatinine 2.11 H 2.09 H (0.66-1.25) mg/dL Glucose 173 H 173 H (74-99) mg/dL Calcium 8.1 L 8.1 L (8.4-10.2) mg/dL Total Bilirubin 1.4 H (0.2-1.3) mg/dL AST 63 H (17-59) U/L Troponin I (0.000-0.034) ng/mL Total Protein 6.1 L (6.3-8.2) g/dL Cortisol 22.5 H (3.1-22.4) UG/DL Urine Protein (Negative) 09/27/23 09/27/23 Range/Units 07:55 10:30 WBC (3.8-10.6) k/uL RBC (4.30-5.90) m/uL Hgb (13.0-17.5) gm/dL Hct (39.0-53.0) % Neutrophils # (1.3-7.7) k/uL Sodium 126 L 124 L (137-145) mmol/L Potassium (3.5-5.1) mmol/L Chloride 90 L (98-107) mmol/L BUN 56 H (9-20) mg/dL Creatinine 2.05 H (0.66-1.25) mg/dL Glucose 281 H (74-99) mg/dL Calcium 8.3 L (8.4-10.2) mg/dL Total Bilirubin (0.2-1.3) mg/dL AST (17-59) U/L Troponin I (0.000-0.034) ng/mL Total Protein (6.3-8.2) g/dL Cortisol (3.1-22.4) UG/DL Urine Protein (Negative) Assessment and Plan Assessment: Impression: Severe hypovolemic hyponatremia and hypokalemia most likely secondary to nausea and vomiting and dehydration. Acute on chronic kidney disease stage IV, patient is biopsy-proven crescentic glomerulonephritis has been on rituximab, on outpatient basis. Elevated troponin with chest pain, rule out acute coronary syndrome Acute COVID-19 infection but no evidence of acute COVID-19 pneumonia History of benign essential hypertension Hypomagnesemia History of cardiomyopathy and LV dysfunction, normally sees Dr. Drew, patient is also known to have history of chronic diastolic congestive heart failure and moderate mitral regurgitation Suspect underlying COPD with acute exacerbation based on physical examination today Recommendation: Transfer to [facility]. or [facility] with telemetry Continue treatment of hyponatremia as per nephrology on the case patient does not need anymore 3% saline at this point, hence could be transferred out of the ICU Continue bronchodilators and add Solu-Medrol Patient is presently off IV fluid Close correction of his hyponatremia Close monitoring of electrolytes Will continue to follow. Time with Patient: Less than 30
[2023-09-27 14:06] LABS: African American GFR (CKD) 38 (>60 ml/min/1.73 sqM); Anion Gap 10 mmol/L; Blood Urea Nitrogen 55 mg/dL (9-20); Calcium 8.4 mg/dL (8.4-10.2); Carbon Dioxide 24 mmol/L (22-30); Chloride 91 mmol/L (98-107); Glucose 293 mg/dL (74-99); Non-African American GFR(CKD) 33 (>60 ml/min/1.73 sqM); Sodium 125 mmol/L (137-145)
--- NOTE | 2023-09-27 16:08 | P.PN ---
Subjective Progress Note Date: 09/27/23 * 72-year-old gentleman with past medical history significant for chronic kidney disease, acute kidney injury, history of chronically elevated troponin, chronic hyponatremia, electrolyte abnormality hypokalemia, nonischemic cardiomyopathy, ejection fraction of 45% , hypertension, hyperlipidemia, anemia of chronic kidney disease who had hospitalization in May 2023 for renal failure and was seen by nephrology and plan for kidney biopsy outpatient * Patient presents back to the emergency department with complaints of cough, shortness of breath, chest pain. Patient said he is refusing infusions with nephrology outpatient patient has been complaining of abdominal pain as well * Workup obtained in ER showed critical labs including sodium of 117, potassium of 1.8, chloride of 71, BUN 74 creatinine 2.68 calcium of 8.3, magnesium of 1.5, AST 79 ALT 51 troponin of 0.315 N-terminal proBNP 57403 lipase of 211. Patient tested negative for influenza RSV however tested positive for COVID. Serum blood work include WBC 20.1 hemoglobin 13.1 platelet count of 279 INR of 1 * While in ER patient was given IV fluid bolus, potassium replacement, magnesium replacement started on maintenance fluid and admitted to medical floor with consultation from cardiology, medical ICU as well as nephrology * EKG obtained in ER showed sinus rhythm, ST segment depression in lead V2 and V3 was noted * Patient to be admitted to medical ICU, for further management Objective - Vital Signs Vital signs: Vital Signs Temp 98 F 09/27/23 08:00 Pulse 86 09/27/23 08:00 Resp 21 09/27/23 08:00 BP 119/79 09/27/23 08:00 Pulse Ox 95 09/27/23 08:00 FiO2 Intake & Output 09/26/23 09/27/23 09/27/23 18:59 06:59 18:59 Intake Total 375 740 100 Output Total 1230 2550 725 Balance -855 -1810 -211 Weight 83.6 kg 84.8 kg Intake: Intake, IV Titration 375 150 0 Amount Potassium Chloride 10 meq 200 In Water For Injection 1 100ml.bag @ 100 mls/hr IVPB Q1H [facility] Rx#: [id number] Sodium Chloride 0.9% 1, 150 000 ml @ 75 mls/hr IV . [id number] STA Rx#:[id number] Sodium Chloride 3%( 25 150 0 Hypertonic) 500 ml @ 25 mls/hr IV .Q20H ONE Rx#: [id number] Oral 590 100 Output: Urine 1230 2550 725 Other: Voiding Method Indwelling Catheter Indwelling Catheter Indwelling Catheter # Bowel Movements 0 - Exam GENERAL: The patient is alert and oriented x3, ill appearance, pale apperance HEENT: Pupils are round and equally reacting to light. EOMI. CARDIOVASCULAR: S1 and S2 present. No murmurs, rubs, or gallops. PULMONARY: Chest is clear to auscultation, no wheezing or crackles. ABDOMEN: Soft, nontender, nondistended, normoactive bowel sounds. MUSCULOSKELETAL: No joint swelling or deformity. EXTREMITIES: No cyanosis, clubbing, or pedal edema. NEUROLOGICAL: Gross neurological examination did not reveal any focal deficits. SKIN: No rashes. - Labs CBC & Chem 7: 09/27/23 03:52 09/27/23 13:07 Labs: Abnormal Lab Results - Last 24 Hours (Table) 09/26/23 09/26/23 09/26/23 Range/Units 09:12 09:12 10:05 WBC (3.8-10.6) k/uL RBC (4.30-5.90) m/uL Hgb (13.0-17.5) gm/dL Hct (39.0-53.0) % Neutrophils # (1.3-7.7) k/uL Sodium 118 L* (137-145) mmol/L Potassium 1.8 L* (3.5-5.1) mmol/L Chloride 74 L* (98-107) mmol/L BUN 75 H (9-20) mg/dL Creatinine 2.42 H (0.66-1.25) mg/dL Glucose 215 H (74-99) mg/dL Calcium 7.7 L (8.4-10.2) mg/dL Total Bilirubin 1.6 H (0.2-1.3) mg/dL AST 71 H (17-59) U/L Troponin I 0.315 H* (0.000-0.034) ng/mL Total Protein 6.2 L (6.3-8.2) g/dL Urine Protein Trace H (Negative) 09/26/23 09/26/23 09/26/23 Range/Units 15:02 16:25 16:25 WBC (3.8-10.6) k/uL RBC (4.30-5.90) m/uL Hgb (13.0-17.5) gm/dL Hct (39.0-53.0) % Neutrophils # (1.3-7.7) k/uL Sodium 118 L* (137-145) mmol/L Potassium 2.0 L* (3.5-5.1) mmol/L Chloride 78 L (98-107) mmol/L BUN (9-20) mg/dL Creatinine (0.66-1.25) mg/dL Glucose (74-99) mg/dL Calcium (8.4-10.2) mg/dL Total Bilirubin (0.2-1.3) mg/dL AST (17-59) U/L Troponin I 0.230 H* 0.231 H* (0.000-0.034) ng/mL Total Protein (6.3-8.2) g/dL Urine Protein (Negative) 09/26/23 09/26/23 09/27/23 Range/Units 20:01 23:50 03:52 WBC 16.3 H (3.8-10.6) k/uL RBC 3.87 L (4.30-5.90) m/uL Hgb 11.9 L (13.0-17.5) gm/dL Hct 33.8 L (39.0-53.0) % Neutrophils # 14.1 H (1.3-7.7) k/uL Sodium 118 L* 122 L (137-145) mmol/L Potassium 2.3 L* 2.8 L (3.5-5.1) mmol/L Chloride 79 L 85 L (98-107) mmol/L BUN 67 H 63 H (9-20) mg/dL Creatinine 2.38 H 2.22 H (0.66-1.25) mg/dL Glucose 266 H 199 H (74-99) mg/dL Calcium 7.5 L 7.6 L (8.4-10.2) mg/dL Total Bilirubin (0.2-1.3) mg/dL AST (17-59) U/L Troponin I (0.000-0.034) ng/mL Total Protein (6.3-8.2) g/dL Urine Protein (Negative) 09/27/23 09/27/23 09/27/23 Range/Units 03:52 03:52 07:55 WBC (3.8-10.6) k/uL RBC (4.30-5.90) m/uL Hgb (13.0-17.5) gm/dL Hct (39.0-53.0) % Neutrophils # (1.3-7.7) k/uL Sodium 126 L 126 L 126 L (137-145) mmol/L Potassium 3.4 L (3.5-5.1) mmol/L Chloride 89 L 89 L 90 L (98-107) mmol/L BUN 61 H 61 H 56 H (9-20) mg/dL Creatinine 2.11 H 2.09 H 2.05 H (0.66-1.25) mg/dL Glucose 173 H 173 H 281 H (74-99) mg/dL Calcium 8.1 L 8.1 L 8.3 L (8.4-10.2) mg/dL Total Bilirubin 1.4 H (0.2-1.3) mg/dL AST 63 H (17-59) U/L Troponin I (0.000-0.034) ng/mL Total Protein 6.1 L (6.3-8.2) g/dL Urine Protein (Negative) Assessment and Plan Assessment: * Acute severe hyponatremia on chronic hyponatremia * Acute renal failure on chronic kidney disease stage IV * Severe hypokalemia * Hypomagnesemia * Elevated troponin rule out ACS * COVID-19 infection * History of hypertension * In regards to critical electrolyte abnormality nephrology consulted, continue to follow-up on electrolyte panel/patient resuscitated with fluids/to be monitored in medical ICU * In regards to renal failure continue to monitor intake and output appreciate input from nephrology * In regards to severe hypokalemia potassium replaced follow-up lab work ordered * Regards to low magnesium magnesium replaced * In regards to elevated troponin follow-up on troponin ordered cardiology consulted * In regards to COVID-19 positive status, patient remains on room air will monitor * In regards to hypertension continue amlodipine * CODE STATUS is full code
[2023-09-27] MEDS: methylPREDNISolone SOD SUCCI 40 MG/ML 1 ML VIAL IV SCH (17:13)
[2023-09-28 11:52] LABS: Sodium 124 mmol/L (137-145)
--- NOTE | 2023-09-28 12:47 | P.PN ---
Subjective patient is seen for follow-up for hyponatremia and chronic kidney disease with acute kidney injury. Sodium at 124 today. Serum creatinine down to 1.9 yesterday. No significant complaints today. Tolerating oral intake. status post 3% saline. Objective - Vital Signs Vital signs: Vital Signs Temp 97.6 F 09/28/23 07:09 Pulse 84 09/28/23 07:09 Resp 17 09/28/23 07:09 BP 151/82 09/28/23 07:09 Pulse Ox 97 09/28/23 07:09 FiO2 Intake & Output 09/27/23 09/28/23 09/28/23 18:59 06:59 18:59 Intake Total 100 Output Total 875 Balance -775 Weight 81.9 kg Intake: Intake, IV Titration 0 Amount Sodium Chloride 3%( 0 Hypertonic) 500 ml @ 25 mls/hr IV .Q20H ONE Rx#: [id number] Oral 100 Output: Urine 875 Other: Voiding Method Indwelling Catheter # Voids 2 4 # Bowel Movements 1 - Exam patient is awake, comfortable, no acute distress Examination of the heart S1 and S2 Examination of the lungs bilateral breath sounds are heard Abdomen is soft nontender Examination of lower extremity shows no significant edema DISK SANDER exam grossly intact - Labs CBC & Chem 7: 09/27/23 03:52 09/28/23 08:25 Labs: Abnormal Lab Results - Last 24 Hours (Table) 09/27/23 09/27/23 09/28/23 Range/Units 13:07 19:31 08:25 Sodium 125 L 123 L 124 L (137-145) mmol/L Chloride 91 L (98-107) mmol/L BUN 55 H (9-20) mg/dL Creatinine 1.98 H (0.66-1.25) mg/dL Glucose 293 H (74-99) mg/dL Microbiology - Last 24 Hours (Table) 09/26/23 16:30 Blood Culture - Preliminary Blood 09/26/23 16:25 Blood Culture - Preliminary Blood Assessment and Plan Assessment: 1. Acute kidney injury secondary to ATN. Multiple acute kidney injury episodes in the last 4 to 5 months related to GI bleed as well as aortic valve endocarditis. Creatinine was as high as above 4. Renal function fairly stable this admission. Creatinine 2.05 today. No hydronephrosis noted on kidney ultrasound. UA fairly benign. 2. Biopsy-proven crescentic glomerulonephritis. Patient received first dose of rituximab a week prior to admission. Has not been taking prednisone for over a month now. 3. 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 urine osmolality and sodium not available. It will be inaccurate now due to recent DDAVP. 4. Hypokalemia from poor intake. Magnesium also slightly low. Patient states he has not been taking any diuretics recently. Replaced. Better. 5. Hypomagnesemia from poor intake. Replaced. Better. 6. Chronic diastolic CHF with mild to moderate mitral regurgitation. 7. Acute COVID-19 infection. 8. Hypertension with chronic kidney disease. Controlled. 9. Chronic kidney disease stage IIIb with creatinine near 1.5 in May 2021. Plan: continue off of IV fluids Sodium chloride tab 1 now Encourage increase oral intake, particularly protein Repeat sodium this afternoon
[2023-09-28 13:15] LABS: Glucose,Whole Blood 517 mg/dL (70-110)
[2023-09-28 13:25] LABS: African American GFR (CKD) 42 (>60 ml/min/1.73 sqM); Anion Gap 13 mmol/L; Blood Urea Nitrogen 49 mg/dL (9-20); Calcium 8.5 mg/dL (8.4-10.2); Carbon Dioxide 23 mmol/L (22-30); Chloride 88 mmol/L (98-107); Glucose 280 mg/dL (74-99); Non-African American GFR(CKD) 37 (>60 ml/min/1.73 sqM); Potassium 3.1 mmol/L (3.5-5.1)
[2023-09-28] MEDS: SODIUM CHLORIDE TAB 1 GM TAB PO STA (13:27)
[2023-09-28] MEDS: INSULIN ASPART (NovoLOG) 100 UNIT/ML VIAL SQ SCH ×2 (13:27→17:03)
--- NOTE | 2023-09-28 14:14 | P.PN ---
Subjective Progress Note Date: 09/28/23 This is a 72-year-old white male with history of chronic kidney disease, presented to the ER today with 1 week history of chest pain, nausea vomiting, but no diarrhea. He is known to have history of nonischemic cardiomyopathy with ejection fraction of 45%, hypertension, chronic kidney disease and chronic anemia secondary to chronic disease. Workup in the ER showed evidence of severe hyponatremia with sodium as low as 117, low potassium of 1.8, elevated BUN of 74 and creatinine 2.68 in the meantime patient tested positive for COVID-19 infection troponin was also elevated at 0.315 and elevated BNP of over 14,000. Chest x-ray showed no evidence of acute process, no evidence of congestive heart failure and no evidence of pneumonia. EKG showed sinus rhythm, ST segment depression in lead V2 and V3, considering his critical labs and the presentation of chest pain, I was asked to see the patient in the ER, and I recommended ICU admission. Patient will receive IV fluids in the form of .9 normal saline, will correct his hypokalemia patient may or may not require 3% saline, in the meantime are also concerned about his elevated troponin, and rule out acute coronary syndrome. Patient was reevaluated today on 09/27/2023, patient is doing better today, he is now on room air, potassium is 3.7, sodium is up to 126, BUN is 56 creatinine 2.05. Patient did receive 3% saline overnight, and his sodium went as high as 126. He also received a dose of DDAVP this morning, clinically the patient is doing great, does not seem to be in any distress, on physical examination he does have rhonchi and wheezes bilaterally, patient does have underlying COPD in addition to this the patient has acute on chronic kidney injury secondary to acute tubular necrosis, he had biopsy-proven crescentic glomerulonephritis. And has been receiving rituximab on outpatient basis. Looking back at the history, patient has been experiencing 1 week history of nausea and vomiting. And I believe that could easily explain his severe hyponatremia and hypokalemia although in addition to this the patient does have acute COVID-19 infection. She is also on another contributing factor to all of the above at any rate cons idering the improvement and considering the patient is not developing any neurological symptoms, I believe it is safe to transfer the patient out of the ICU to a monitored bed and selective or monitored bed on the medical surgical floor for his COPD, will continue bronchodilators and updrafts, will also add Solu-Medrol for his bronchospasm noted on physical examination today The patient is seen today September 28, 2023 in follow-up on the regular medical floor. He is currently sitting up at the bedside. Awake and alert in no acute distress. He is maintaining good O2 saturations in the 90s on room air. Current sodium 124. Potassium 3.1. Bicarb 23. BUN 49. Creatinine 1.80. Glucose 280. TSH 0.233. Free T41.99. Cultures reveal no growth. He remains on Solu-Medrol. Objective - Vital Signs Vital signs: Vital Signs Temp 97.7 F 09/28/23 12:09 Pulse 91 09/28/23 12:09 Resp 17 09/28/23 12:09 BP 137/78 09/28/23 12:09 Pulse Ox 98 09/28/23 12:09 FiO2 Intake & Output 09/27/23 09/28/23 09/28/23 18:59 06:59 18:59 Intake Total 100 Output Total 875 Balance -775 Weight 81.9 kg Intake: Intake, IV Titration 0 Amount Sodium Chloride 3%( 0 Hypertonic) 500 ml @ 25 mls/hr IV .Q20H ONE Rx#: [id number] Oral 100 Output: Urine 875 Other: Voiding Method Indwelling Catheter # Voids 2 4 # Bowel Movements 1 - Exam GENERAL EXAM: Alert, 72-year-old male, sitting up at the bedside, on room air, comfortable in no apparent distress. HEAD: Normocephalic. EYES: Normal reaction of pupils, equal size. NOSE: Clear with pink turbinates. THROAT: No erythema or exudates. NECK: No masses, no JVD. CHEST: No chest wall deformity. LUNGS: Equal air entry with few scattered rhonchi. CVS: S1 and S2 normal with no audible murmur, regular rhythm. ABDOMEN: No hepatosplenomegaly, normal bowel sounds, no guarding or rigidity. SPINE: No scoliosis or deformity SKIN: No rashes CENTRAL NERVOUS SYSTEM: No focal deficits, tone is normal in all 4 extremities. EXTREMITIES: There is no peripheral edema. No clubbing, no cyanosis. Peripheral pulses are intact. - Labs CBC & Chem 7: 09/27/23 03:52 09/28/23 08:25 Labs: Abnormal Lab Results - Last 24 Hours (Table) 09/27/23 09/28/23 09/28/23 Range/Units 19:31 08:25 08:25 Sodium 123 L 124 L (137-145) mmol/L Potassium 3.1 L (3.5-5.1) mmol/L Chloride 88 L (98-107) mmol/L BUN 49 H (9-20) mg/dL Creatinine 1.80 H (0.66-1.25) mg/dL Glucose 280 H (74-99) mg/dL POC Glucose (mg/dL) (70-110) mg/dL TSH 0.233 L (0.350-5.500) UIU/ML Free (T4) Reflex I 1.99 H (0.80-1.80) ng/dL 09/28/23 Range/Units 13:13 Sodium (137-145) mmol/L Potassium (3.5-5.1) mmol/L Chloride (98-107) mmol/L BUN (9-20) mg/dL Creatinine (0.66-1.25) mg/dL Glucose (74-99) mg/dL POC Glucose (mg/dL) 517 H (70-110) mg/dL TSH (0.350-5.500) UIU/ML Free (T4) Reflex I (0.80-1.80) ng/dL Microbiology - Last 24 Hours (Table) 09/26/23 16:30 Blood Culture - Preliminary Blood 09/26/23 16:25 Blood Culture - Preliminary Blood Assessment and Plan Assessment: Severe hypovolemic hyponatremia and hypokalemia most likely secondary to nausea and vomiting and dehydration. Acute on chronic kidney disease stage IV, patient is biopsy-proven crescentic glomerulonephritis has been on rituximab, on outpatient basis. Elevated troponin with chest pain, rule out acute coronary syndrome Acute COVID-19 infection but no evidence of acute COVID-19 pneumonia History of benign essential hypertension Hypomagnesemia History of cardiomyopathy and LV dysfunction, normally sees Dr. Haddad, patient is also known to have history of chronic diastolic congestive heart failure and moderate mitral regurgitation Suspect underlying COPD with acute exacerbation Plan: The patient was seen and evaluated Labs and medications reviewed Continued on steroids Continue electrolyte replacement Sodium chloride tablets added Encouraged increase oral intake Follow-up sodium pending Nephrology is following I have personally seen and examined the patient, performed the documentation and the assessment and plan as written. Number of minutes spent on the visit: 10.
[2023-09-28] MEDS: POTASSIUM CHLORIDE ER 20 MEQ TAB.ER PO SCH (15:09)
[2023-09-28 16:22] LABS: Glucose,Whole Blood 285 mg/dL (70-110)
--- NOTE | 2023-09-28 17:43 | P.PN ---
Subjective Progress Note Date: 09/28/23 * 72-year-old gentleman with past medical history significant for chronic kidney disease, acute kidney injury, history of chronically elevated troponin, chronic hyponatremia, electrolyte abnormality hypokalemia, nonischemic cardiomyopathy, ejection fraction of 45% , hypertension, hyperlipidemia, anemia of chronic kidney disease who had hospitalization in May 2023 for renal failure and was seen by nephrology and plan for kidney biopsy outpatient * Patient presents back to the emergency department with complaints of cough, shortness of breath, chest pain. Patient said he is refusing infusions with nephrology outpatient patient has been complaining of abdominal pain as well * Workup obtained in ER showed critical labs including sodium of 117, potassium of 1.8, chloride of 71, BUN 74 creatinine 2.68 calcium of 8.3, magnesium of 1.5, AST 79 ALT 51 troponin of 0.315 N-terminal proBNP 18342 lipase of 211. Patient tested negative for influenza RSV however tested positive for COVID. Serum blood work include WBC 20.1 hemoglobin 13.1 platelet count of 279 INR of 1 * While in ER patient was given IV fluid bolus, potassium replacement, magnesium replacement started on maintenance fluid and admitted to medical floor with consultation from cardiology, medical ICU as well as nephrology * EKG obtained in ER showed sinus rhythm, ST segment depression in lead V2 and V3 was noted * Patient to be admitted to medical ICU, for further management 09/28/2023 Patient is seen and evaluated in follow-up on the regular medical floor. He is currently sitting up at the bedside. Awake and alert in no acute distress. He is maintaining good O2 saturations in the 90s on room air. Current sodium 124. Potassium 3.1. Bicarb 23. BUN 49. Creatinine 1.80. Glucose 280. TSH 0.233. Free T41.99. Cultures reveal no growth. He remains on Solu-Medrol. -- Patient remains on IV steroids; continue with electrolyte replacement; sodium chloride tablet added Nephrology on board Objective - Vital Signs Vital signs: Vital Signs Temp 97.7 F 09/28/23 12:09 Pulse 91 09/28/23 12:09 Resp 17 09/28/23 12:09 BP 132/76 09/28/23 16:23 Pulse Ox 98 09/28/23 12:09 FiO2 Intake & Output 09/27/23 09/28/23 09/28/23 18:59 06:59 18:59 Intake Total 100 Output Total 875 Balance -775 Weight 81.9 kg Intake: Intake, IV Titration 0 Amount Sodium Chloride 3%( 0 Hypertonic) 500 ml @ 25 mls/hr IV .Q20H ONE Rx#: [id number] Oral 100 Output: Urine 875 Other: Voiding Method Indwelling Catheter # Voids 2 4 2 # Bowel Movements 1 - Exam GENERAL: The patient is alert and oriented x3, ill appearance, pale apperance HEENT: Pupils are round and equally reacting to light. EOMI. CARDIOVASCULAR: S1 and S2 present. No murmurs, rubs, or gallops. PULMONARY: Chest is clear to auscultation, no wheezing or crackles. ABDOMEN: Soft, nontender, nondistended, normoactive bowel sounds. MUSCULOSKELETAL: No joint swelling or deformity. EXTREMITIES: No cyanosis, clubbing, or pedal edema. NEUROLOGICAL: Gross neurological examination did not reveal any focal deficits. SKIN: No rashes. - Labs CBC & Chem 7: 09/27/23 03:52 09/28/23 16:46 Labs: Abnormal Lab Results - Last 24 Hours (Table) 09/27/23 09/28/23 09/28/23 Range/Units 19:31 08:25 08:25 Sodium 123 L 124 L (137-145) mmol/L Potassium 3.1 L (3.5-5.1) mmol/L Chloride 88 L (98-107) mmol/L BUN 49 H (9-20) mg/dL Creatinine 1.80 H (0.66-1.25) mg/dL Glucose 280 H (74-99) mg/dL POC Glucose (mg/dL) (70-110) mg/dL TSH 0.233 L (0.350-5.500) UIU/ML Free (T4) Reflex I 1.99 H (0.80-1.80) ng/dL 09/28/23 09/28/23 09/28/23 Range/Units 13:13 16:21 16:46 Sodium 123 L (137-145) mmol/L Potassium (3.5-5.1) mmol/L Chloride (98-107) mmol/L BUN (9-20) mg/dL Creatinine (0.66-1.25) mg/dL Glucose (74-99) mg/dL POC Glucose (mg/dL) 517 H 285 H (70-110) mg/dL TSH (0.350-5.500) UIU/ML Free (T4) Reflex I (0.80-1.80) ng/dL Microbiology - Last 24 Hours (Table) 09/26/23 16:30 Blood Culture - Preliminary Blood 09/26/23 16:25 Blood Culture - Preliminary Blood Assessment and Plan Assessment: * Acute severe hyponatremia on chronic hyponatremia * Acute renal failure on chronic kidney disease stage IV * Severe hypokalemia * Hypomagnesemia * Elevated troponin rule out ACS * COVID-19 infection * History of hypertension * In regards to critical electrolyte abnormality nephrology consulted, continue to follow-up on electrolyte panel/patient resuscitated with fluids/to be monitored in medical ICU * In regards to renal failure continue to monitor intake and output appreciate input from nephrology * In regards to severe hypokalemia potassium replaced follow-up lab work ordered * Regards to low magnesium magnesium replaced * In regards to elevated troponin follow-up on troponin ordered cardiology consulted * In regards to COVID-19 positive status, patient remains on room air will monitor * In regards to hypertension continue amlodipine * CODE STATUS is full code
[2023-09-28 20:08] LABS: Glucose,Whole Blood 215 mg/dL (70-110)
[2023-09-29] MEDS: TOLVAPTAN 15 MG TABLET PO ONE ×2 (00:12→12:15)
[2023-09-29] MEDS: BENZOCAINE/MENTHOL LOZENG 1 EACH LOZENGE MUCOUS MEM PRN (00:39)
[2023-09-29 05:44] LABS: Glucose,Whole Blood 427 mg/dL (70-110)
[2023-09-29] MEDS: ENOXAPARIN 40 MG/0.4 ML SYRINGE SQ SCH (08:52)
[2023-09-29 09:34] LABS: HCT 30.7 % (39.6-50.0); HGB 11.3 g/dL (13.0-17.0); MCH 31.1 pg (27.0-32.0); MCHC 36.8 g/dL (32.0-37.0); MCV 84.6 FL (80.0-97.0); Mean Platelet Volume 10.7 FL (9.5-12.2); NRBC Per 100 WBC 0 X 10*3/uL (0.00-0.01); Platelet Count 272 X 10*3/uL (140-440); RBC 3.63 X 10*6/uL (4.40-5.60); RDW 13.6 % (11.5-14.5); WBC 21.75 X 10*3/uL (4.50-10.00)
[2023-09-29 09:43] LABS: BUN/Creat Ratio 22.55 Ratio (12.00-20.00); Blood Urea Nitrogen 49.6 mg/dL (9.0-27.0); Calcium 8.9 mg/dL (8.7-10.3); Carbon Dioxide 24.7 mmol/L (21.6-31.8); Chloride 88 mmol/L (96-109); Glucose 382 mg/dL (70-110); Potassium 3.9 mmol/L (3.5-5.5); Sodium 127 mmol/L (135-145)
[2023-09-29 11:16] LABS: Basophils # (A) 0.06 X 10*3/uL (0.00-0.10); Basophils % (A) 0.3 %; Eosinophils # (A) 0 X 10*3/uL (0.04-0.35); Eosinophils % (A) 0 %; Lymphocytes # (A) 0.68 X 10*3/uL (0.90-5.00); Lymphocytes % (A) 3.1 %; Monocytes # (A) 0.39 X 10*3/uL (0.20-1.00); Monocytes % (A) 1.8 %; Neutrophils # (A) 20.25 X 10*3/uL (1.80-7.70); Neutrophils % (A) 93.1 %
--- NOTE | 2023-09-29 11:33 | P.PN ---
Subjective patient is seen for follow-up for hyponatremia and chronic kidney disease with acute kidney injury. sodium improved after Samsca last night. Sodium is up to 127 today. No significant complaints today. patient wants to go home. Tolerating oral intake. Objective - Vital Signs Vital signs: Vital Signs Temp 97.8 F 09/29/23 07:24 Pulse 87 09/29/23 07:24 Resp 17 09/29/23 07:24 BP 119/68 09/29/23 07:24 Pulse Ox 99 09/29/23 07:24 FiO2 Intake & Output 09/28/23 09/29/23 09/29/23 18:59 06:59 18:59 Intake Total 20 20 Balance 20 20 Weight 83.1 kg Intake: IV 20 20 Invasive Line 1 10 10 Invasive Line 2 10 10 Other: Voiding Method Toilet # Voids 2 # Bowel Movements 3 - Exam patient is awake, comfortable, no acute distress Examination of the heart S1 and S2 Examination of the lungs bilateral breath sounds are heard Abdomen is soft nontender Examination of lower extremity shows no significant edema D[employer] exam grossly intact - Labs CBC & Chem 7: 09/29/23 06:37 09/29/23 06:37 Labs: Abnormal Lab Results - Last 24 Hours (Table) 09/28/23 09/28/23 09/28/23 Range/Units 08:25 08:25 13:13 WBC (4.50-10.00) X 10*3/uL RBC (4.40-5.60) X 10*6/uL Hgb (13.0-17.0) g/dL Hct (39.6-50.0) % Immature Gran # (0.00-0.04) X 10*3/uL Neutrophils # (1.80-7.70) X 10*3/uL Lymphocytes # (0.90-5.00) X 10*3/uL Eosinophils # (0.04-0.35) X 10*3/uL Sodium 124 L (137-145) mmol/L Potassium 3.1 L (3.5-5.1) mmol/L Chloride 88 L (98-107) mmol/L Anion Gap (4.00-12.00) mmol/L BUN 49 H (9-20) mg/dL Creatinine 1.80 H (0.66-1.25) mg/dL Est GFR (CKD-EPI) (>=60) BUN/Creatinine Ratio (12.00-20.00) Ratio Glucose 280 H (74-99) mg/dL POC Glucose (mg/dL) 517 H (70-110) mg/dL TSH 0.233 L (0.350-5.500) UIU/ML Free (T4) Reflex I 1.99 H (0.80-1.80) ng/dL 09/28/23 09/28/23 09/28/23 Range/Units 16:21 16:46 20:06 WBC (4.50-10.00) X 10*3/uL RBC (4.40-5.60) X 10*6/uL Hgb (13.0-17.0) g/dL Hct (39.6-50.0) % Immature Gran # (0.00-0.04) X 10*3/uL Neutrophils # (1.80-7.70) X 10*3/uL Lymphocytes # (0.90-5.00) X 10*3/uL Eosinophils # (0.04-0.35) X 10*3/uL Sodium 123 L (137-145) mmol/L Potassium (3.5-5.1) mmol/L Chloride (98-107) mmol/L Anion Gap (4.00-12.00) mmol/L BUN (9-20) mg/dL Creatinine (0.66-1.25) mg/dL Est GFR (CKD-EPI) (>=60) BUN/Creatinine Ratio (12.00-20.00) Ratio Glucose (74-99) mg/dL POC Glucose (mg/dL) 285 H 215 H (70-110) mg/dL TSH (0.350-5.500) UIU/ML Free (T4) Reflex I (0.80-1.80) ng/dL 09/29/23 09/29/23 09/29/23 Range/Units 05:43 06:37 06:37 WBC 21.75 H (4.50-10.00) X 10*3/uL RBC 3.63 L (4.40-5.60) X 10*6/uL Hgb 11.3 L (13.0-17.0) g/dL Hct 30.7 L (39.6-50.0) % Immature Gran # 0.37 H (0.00-0.04) X 10*3/uL Neutrophils # 20.25 H (1.80-7.70) X 10*3/uL Lymphocytes # 0.68 L (0.90-5.00) X 10*3/uL Eosinophils # 0 L (0.04-0.35) X 10*3/uL Sodium 127 L (137-145) mmol/L Potassium (3.5-5.1) mmol/L Chloride 88 L (98-107) mmol/L Anion Gap 14.30 H (4.00-12.00) mmol/L BUN 49.6 H (9-20) mg/dL Creatinine 2.2 H (0.66-1.25) mg/dL Est GFR (CKD-EPI) 31 L (>=60) BUN/Creatinine Ratio 22.55 H (12.00-20.00) Ratio Glucose 382 H (74-99) mg/dL POC Glucose (mg/dL) 427 H (70-110) mg/dL TSH (0.350-5.500) UIU/ML Free (T4) Reflex I (0.80-1.80) ng/dL Microbiology - Last 24 Hours (Table) 09/26/23 16:30 Blood Culture - Preliminary Blood 09/26/23 16:25 Blood Culture - Preliminary Blood Assessment and Plan Assessment: 1. Acute kidney injury secondary to ATN. Multiple acute kidney injury episodes in the last 4 to 5 months related to GI bleed as well as aortic valve endocarditis. Creatinine was as high as above 4. Renal function fairly stable this admission. Creatinine 2.05 today. No hydronephrosis noted on kidney ultrasound. UA fairly benign. 2. Biopsy-proven crescentic glomerulonephritis. Patient received first dose of rituximab a week prior to admission. Has not been taking prednisone for over a month now. 3. 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 urine osmolality and sodium not available. It will be inaccurate now due to recent DDAVP. improved after Samsca yesterday. 4. Hypokalemia from poor intake. Magnesium also slightly low. Patient states he has not been taking any diuretics recently. Replaced. Better. 5. Hypomagnesemia from poor intake. Replaced. Better. 6. Chronic diastolic CHF with mild to moderate mitral regurgitation. 7. Acute COVID-19 infection. 8. Hypertension with chronic kidney disease. Controlled. 9. Chronic kidney disease stage IIIb with creatinine near 1.5 in May 2021. Plan: repeat [facility] today. Patient can be discharged from nephrology standpoint with labs to be done in 3-4 days post discharge. Follow-up as outpatient in 1-2 weeks.
[2023-09-29 11:45] LABS: Glucose,Whole Blood 298 mg/dL (70-110)
--- NOTE | 2023-09-29 11:49 | P.PN ---
Subjective Progress Note Date: 09/29/23 This is a 72-year-old white male with history of chronic kidney disease, presented to the ER today with 1 week history of chest pain, nausea vomiting, but no diarrhea. He is known to have history of nonischemic cardiomyopathy with ejection fraction of 45%, hypertension, chronic kidney disease and chronic anemia secondary to chronic disease. Workup in the ER showed evidence of severe hyponatremia with sodium as low as 117, low potassium of 1.8, elevated BUN of 74 and creatinine 2.68 in the meantime patient tested positive for COVID-19 infection troponin was also elevated at 0.315 and elevated BNP of over 14,000. Chest x-ray showed no evidence of acute process, no evidence of congestive heart failure and no evidence of pneumonia. EKG showed sinus rhythm, ST segment depression in lead V2 and V3, considering his critical labs and the presentation of chest pain, I was asked to see the patient in the ER, and I recommended ICU admission. Patient will receive IV fluids in the form of .9 normal saline, will correct his hypokalemia patient may or may not require 3% saline, in the meantime are also concerned about his elevated troponin, and rule out acute coronary syndrome. Patient was reevaluated today on 09/27/2023, patient is doing better today, he is now on room air, potassium is 3.7, sodium is up to 126, BUN is 56 creatinine 2.05. Patient did receive 3% saline overnight, and his sodium went as high as 126. He also received a dose of DDAVP this morning, clinically the patient is doing great, does not seem to be in any distress, on physical examination he does have rhonchi and wheezes bilaterally, patient does have underlying COPD in addition to this the patient has acute on chronic kidney injury secondary to acute tubular necrosis, he had biopsy-proven crescentic glomerulonephritis. And has been receiving rituximab on outpatient basis. Looking back at the history, patient has been experiencing 1 week history of nausea and vomiting. And I believe that could easily explain his severe hyponatremia and hypokalemia although in addition to this the patient does have acute COVID-19 infection. She is also on another contributing factor to all of the above at any rate cons idering the improvement and considering the patient is not developing any neurological symptoms, I believe it is safe to transfer the patient out of the ICU to a monitored bed and selective or monitored bed on the medical surgical floor for his COPD, will continue bronchodilators and updrafts, will also add Solu-Medrol for his bronchospasm noted on physical examination today The patient is seen today September 28, 2023 in follow-up on the regular medical floor. He is currently sitting up at the bedside. Awake and alert in no acute distress. He is maintaining good O2 saturations in the 90s on room air. Current sodium 124. Potassium 3.1. Bicarb 23. BUN 49. Creatinine 1.80. Glucose 280. TSH 0.233. Free T41.99. Cultures reveal no growth. He remains on Solu-Medrol. The patient is seen today September 29, 2023 in follow-up on the regular medical floor. He is up ambulating in his room. Awake and alert in no acute distress. Maintaining good O2 saturations in the 90s on room air. He is afebrile. Hemodynamically stable. Cultures revealed no growth. White count 21.7. Hemoglobin 11.3. Sodium 127. Potassium 3.9. Bicarb 25. BUN 50. Creatinine 2.2. Glucose 382. He is scheduled for a dose of tolvaptan today for nephrology. Remains on Solu-Medrol. Lovenox for DVT prophylaxis. Objective - Vital Signs Vital signs: Vital Signs Temp 97.8 F 09/29/23 07:24 Pulse 87 09/29/23 07:24 Resp 17 09/29/23 07:24 BP 119/68 09/29/23 07:24 Pulse Ox 99 09/29/23 07:24 FiO2 Intake & Output 09/28/23 09/29/23 09/29/23 18:59 06:59 18:59 Intake Total 20 20 Balance 20 20 Weight 83.1 kg Intake: IV 20 20 Invasive Line 1 10 10 Invasive Line 2 10 10 Other: Voiding Method Toilet # Voids 2 # Bowel Movements 3 - Exam GENERAL EXAM: Alert, 72-year-old male, ambulating in his room, on room air, comfortable in no apparent distress. HEAD: Normocephalic. EYES: Normal reaction of pupils, equal size. NOSE: Clear with pink turbinates. THROAT: No erythema or exudates. NECK: No masses, no JVD. CHEST: No chest wall deformity. LUNGS: Equal air entry with few scattered rhonchi. CVS: S1 and S2 normal with no audible murmur, regular rhythm. ABDOMEN: No hepatosplenomegaly, normal bowel sounds, no guarding or rigidity. SPINE: No scoliosis or deformity SKIN: No rashes CENTRAL NERVOUS SYSTEM: No focal deficits, tone is normal in all 4 extremities. EXTREMITIES: There is no peripheral edema. No clubbing, no cyanosis. Peripheral pulses are intact. - Labs CBC & Chem 7: 09/29/23 06:37 09/29/23 06:37 Labs: Abnormal Lab Results - Last 24 Hours (Table) 09/28/23 09/28/23 09/28/23 Range/Units 08:25 08:25 13:13 WBC (4.50-10.00) X 10*3/uL RBC (4.40-5.60) X 10*6/uL Hgb (13.0-17.0) g/dL Hct (39.6-50.0) % Immature Gran # (0.00-0.04) X 10*3/uL Neutrophils # (1.80-7.70) X 10*3/uL Lymphocytes # (0.90-5.00) X 10*3/uL Eosinophils # (0.04-0.35) X 10*3/uL Sodium 124 L (137-145) mmol/L Potassium 3.1 L (3.5-5.1) mmol/L Chloride 88 L (98-107) mmol/L Anion Gap (4.00-12.00) mmol/L BUN 49 H (9-20) mg/dL Creatinine 1.80 H (0.66-1.25) mg/dL Est GFR (CKD-EPI) (>=60) BUN/Creatinine Ratio (12.00-20.00) Ratio Glucose 280 H (74-99) mg/dL POC Glucose (mg/dL) 517 H (70-110) mg/dL TSH 0.233 L (0.350-5.500) UIU/ML Free (T4) Reflex I 1.99 H (0.80-1.80) ng/dL 09/28/23 09/28/23 09/28/23 Range/Units 16:21 16:46 20:06 WBC (4.50-10.00) X 10*3/uL RBC (4.40-5.60) X 10*6/uL Hgb (13.0-17.0) g/dL Hct (39.6-50.0) % Immature Gran # (0.00-0.04) X 10*3/uL Neutrophils # (1.80-7.70) X 10*3/uL Lymphocytes # (0.90-5.00) X 10*3/uL Eosinophils # (0.04-0.35) X 10*3/uL Sodium 123 L (137-145) mmol/L Potassium (3.5-5.1) mmol/L Chloride (98-107) mmol/L Anion Gap (4.00-12.00) mmol/L BUN (9-20) mg/dL Creatinine (0.66-1.25) mg/dL Est GFR (CKD-EPI) (>=60) BUN/Creatinine Ratio (12.00-20.00) Ratio Glucose (74-99) mg/dL POC Glucose (mg/dL) 285 H 215 H (70-110) mg/dL TSH (0.350-5.500) UIU/ML Free (T4) Reflex I (0.80-1.80) ng/dL 09/29/23 09/29/23 09/29/23 Range/Units 05:43 06:37 06:37 WBC 21.75 H (4.50-10.00) X 10*3/uL RBC 3.63 L (4.40-5.60) X 10*6/uL Hgb 11.3 L (13.0-17.0) g/dL Hct 30.7 L (39.6-50.0) % Immature Gran # 0.37 H (0.00-0.04) X 10*3/uL Neutrophils # 20.25 H (1.80-7.70) X 10*3/uL Lymphocytes # 0.68 L (0.90-5.00) X 10*3/uL Eosinophils # 0 L (0.04-0.35) X 10*3/uL Sodium 127 L (137-145) mmol/L Potassium (3.5-5.1) mmol/L Chloride 88 L (98-107) mmol/L Anion Gap 14.30 H (4.00-12.00) mmol/L BUN 49.6 H (9-20) mg/dL Creatinine 2.2 H (0.66-1.25) mg/dL Est GFR (CKD-EPI) 31 L (>=60) BUN/Creatinine Ratio 22.55 H (12.00-20.00) Ratio Glucose 382 H (74-99) mg/dL POC Glucose (mg/dL) 427 H (70-110) mg/dL TSH (0.350-5.500) UIU/ML Free (T4) Reflex I (0.80-1.80) ng/dL Microbiology - Last 24 Hours (Table) 09/26/23 16:30 Blood Culture - Preliminary Blood 09/26/23 16:25 Blood Culture - Preliminary Blood Assessment and Plan Assessment: Severe hypovolemic hyponatremia and hypokalemia most likely secondary to nausea and vomiting and dehydration, improving Acute on chronic kidney disease stage IV, patient is biopsy-proven crescentic glomerulonephritis has been on rituximab, on outpatient basis Elevated troponin with chest pain, rule out acute coronary syndrome Acute COVID-19 infection but no evidence of acute COVID-19 pneumonia History of benign essential hypertension Hypomagnesemia History of cardiomyopathy and LV dysfunction, normally sees Dr. Haddad, patient is also known to have history of chronic diastolic congestive heart failure and moderate mitral regurgitation Suspect underlying COPD with acute exacerbation Plan: The patient was seen and evaluated Labs and medications reviewed Current sodium 127 Receiving tolvaptan again today Nephrology is following He remains stable and on room air Discontinue Solu-Medrol Initiate a prednisone taper Home once cleared by nephrology This patient was seen independently by the pulmonary nurse practitioner addressing pulmonary issues I have personally seen and examined the patient, performed the documentation and the assessment and plan as written. Number of minutes spent on the visit: 24.
[2023-09-29] MEDS: INSULIN ASPART (NovoLOG) 100 UNIT/ML VIAL SQ SCH (12:15)
[2023-09-29 13:41] VITALS: BP 140/82; PULSE 96; RESP 16; TEMP 97.9
[2023-09-30] MEDS ORDERED: predniSONE 10 MG TAB PO SCH (09:00)
== END 2023-09-29 14:11 | disposition home or self-care (01) | DRG 177 ==
LOC: EC 08:43 → 2SICU 12:13 → 4SSUR 09-27 14:18
PROVIDERS: ADMIT Internal Medicine; ATTEND Internal Medicine
DX: U07.1 COVID-19 (principal); N17.0 Acute kidney failure with tubular necrosis; J44.1 Chronic obstructive pulmonary disease with (acute) exacerbation; N18.4 Chronic kidney disease, stage 4 (severe); I50.32 Chronic diastolic (congestive) heart failure; I42.8 Other cardiomyopathies; I13.0 Hypertensive heart and chronic kidney disease with heart failure and stage 1 through stage 4 chronic kidney disease, or unspecified chronic kidney disease; E22.2 Syndrome of inappropriate secretion of antidiuretic hormone; R06.00 Dyspnea, unspecified; E87.6 Hypokalemia; E83.42 Hypomagnesemia; D63.1 Anemia in chronic kidney disease; F12.10 Cannabis abuse, uncomplicated; E86.1 Hypovolemia; E86.0 Dehydration; I34.0 Nonrheumatic mitral (valve) insufficiency; N05.7 Unspecified nephritic syndrome with diffuse crescentic glomerulonephritis; R79.89 Other specified abnormal findings of blood chemistry; F17.200 Nicotine dependence, unspecified, uncomplicated; E87.8 Other disorders of electrolyte and fluid balance, not elsewhere classified; E78.5 Hyperlipidemia, unspecified; Z28.310 Unvaccinated for COVID-19; Z79.899 Other long term (current) drug therapy
CPT/HCPCS: 36415; 71046; 76770; 80048; 80051; 80053; 81003; 82533; 83690; 83735; 83880; 84295; 84439; 84443; 84484; 85025; 85610; 85730; 87040; 87636; 93005; 93308; 96361; 96365; 96366; 96367; 96368; 96375; 99291

== ENCOUNTER 2023-11-17 16:16 | Inpatient (IN) | payer MEDICARE ==
[2023-11-17] MEDS: HYDROcodone/APAP 5-325MG 1 EACH TAB PO STA (17:35)
[2023-11-17 18:00] LABS: Basophils # (A) 0.1 k/uL (0-0.2); Basophils % (A) 0 %; Eosinophils # (A) 0.1 k/uL (0-0.7); Eosinophils % (A) 0 %; HCT 38.5 % (39.0-53.0); HGB 12.9 gm/dL (13.0-17.5); Lymphocytes # (A) 0.6 k/uL (1.0-4.8); Lymphocytes % (A) 2 %; MCH 30.5 pg (25.0-35.0); MCHC 33.6 g/dL (31.0-37.0); MCV 90.6 fL (80.0-100.0); Mean Platelet Volume 9.5; Monocytes # (A) 0.9 k/uL (0-1.0); Monocytes % (A) 3 %; Neutrophils # (A) 23.2 k/uL (1.3-7.7); Neutrophils % (A) 93 %; Platelet Count 255 k/uL (150-450); RBC 4.25 m/uL (4.30-5.90); RDW 14.2 % (11.5-15.5); WBC 24.8 k/uL (3.8-10.6)
--- NOTE | 2023-11-17 18:11 | XR ---
EXAMINATION TYPE: XR chest 2V DATE OF EXAM: 11/17/2023 5:41 PM CLINICAL INDICATION:Male, 73 years old with history of Weakness; COMPARISON: Chest radiographs from 09/26/2023 TECHNIQUE: XR chest 2V Frontal and lateral views of the chest. FINDINGS: Lungs/Pleura: There is no evidence of pleural effusion, focal consolidation, or pneumothorax. Pulmonary vascularity: Unremarkable. Heart/mediastinum: Cardiomediastinal silhouette is unremarkable. Musculoskeletal: No acute osseous pathology. IMPRESSION: No acute cardiopulmonary disease/process.
[2023-11-17 18:20] LABS: ALT 28 U/L (4-49); AST 35 U/L (17-59); African American GFR (CKD) 37 (>60 ml/min/1.73 sqM); Albumin 3.2 g/dL (3.5-5.0); Alkaline Phosphatase 189 U/L (38-126); Anion Gap 17 mmol/L; Calcium 8.5 mg/dL (8.4-10.2); Carbon Dioxide 27 mmol/L (22-30); Chloride 79 mmol/L (98-107); Non-African American GFR(CKD) 32 (>60 ml/min/1.73 sqM); Sodium 123 mmol/L (137-145); Total Bilirubin 0.8 mg/dL (0.2-1.3); Total Protein 6.2 g/dL (6.3-8.2)
[2023-11-17 18:27] LABS: Blood Urea Nitrogen 110 mg/dL (9-20); Potassium 3.7 mmol/L (3.5-5.1)
[2023-11-17 18:28] LABS: Glucose 750 mg/dL (74-99)
[2023-11-17] MEDS ORDERED: Magnesium Replacement Protocol 1 EACH MISC MISCELLANE PRN (18:45)
[2023-11-17] MEDS ORDERED: DEXTROSE 50% SYRINGE 50 ML IVP PRN ×2 (18:45)
[2023-11-17] MEDS ORDERED: Potassium Replacement Protocol 1 EACH MISC MISCELLANE PRN (18:45)
[2023-11-17] MEDS: MAGNESIUM SULFATE-D5W PMX 1 GM in DEXTROSE/WATER 1 100ML.BAG IVPB SCH (19:11)
[2023-11-17] MEDS: SODIUM CHLORIDE 0.9% 1,000 ML IV SCH (19:11)
[2023-11-17] MEDS: INSULIN REGULAR 100 UNIT in SODIUM CHLORIDE 0.9% 100 ML IV SCH (19:12)
[2023-11-17] MEDS ORDERED: VANCOMYCIN IV PER PHARMACY 1 EACH MISC MISCELLANE PRN (19:25)
[2023-11-17 19:37] LABS: African American GFR (CKD) 37 (>60 ml/min/1.73 sqM); Anion Gap 14 mmol/L; Carbon Dioxide 27 mmol/L (22-30); Chloride 83 mmol/L (98-107); Non-African American GFR(CKD) 32 (>60 ml/min/1.73 sqM); Sodium 124 mmol/L (137-145)
--- NOTE | 2023-11-17 19:43 | ED ---
General Adult HPI - General Chief complaint: Skin/Abscess/Foreign Body Stated complaint: Fall Time Seen by Provider: 11/17/23 16:21 Source: patient, EMS Mode of arrival: EMS Limitations: no limitations - History of Present Illness Initial comments: 73-year-old male presents emergency department complaining of an abrasion to his left chest wall. Patient reports that he lost his balance at home and fell hitting his left chest against an entertainment center. He denies hitting his head. No loss of consciousness. No neck or back pain. Patient has his bilateral lower extremities wrapped with redness extending up the left leg. States that he is being treated by Dr. Castro. States the dressings were last changed last Saturday. He does admit to bilateral lower extremity pain but this is chronic. Denies any new pain since the fall. He denies passing out. No chest pain or shortness of breath. Denies any hip pain. does present. States that the patient is a diabetic and takes insulin twice daily. She has been unable to check his sugars as she does not know how to use the new glucose monitor. - Related Data Home Medications Medication Instructions Recorded Confirmed Acetaminophen Tab [Tylenol] 650 mg PO Q8H PRN 11/17/23 11/17/23 Calcium Acetate [PhosLo] 667 mg PO TID-W/MEALS 11/17/23 11/17/23 Magnesium Oxide [Mag-Ox] 400 mg PO DAILY 11/17/23 11/17/23 Metoprolol Tartrate [Lopressor] 50 mg PO BID-W/MEALS 11/17/23 11/17/23 Previous Rx's Medication Instructions Recorded Atorvastatin [Lipitor] 40 mg PO HS #30 tab 08/17/20 Isosorbide Mononitrate ER [Imdur] 60 mg PO DAILY #30 tab.er.24h 08/17/20 Pantoprazole [Protonix] 40 mg PO DAILY 30 Days #30 tab 05/10/23 Aspirin 81 mg PO DAILY #60 tab 11/23/23 Ciprofloxacin HCl [Cipro] 500 mg PO Q12HR 10 Days #20 tab 11/23/23 Insulin NPH Hum/Reg Insulin Hm 20 unit SQ AC-SUPPER #7 each 11/23/23 [humuLIN 70/30 Kwikpen] Insulin NPH Hum/Reg Insulin Hm 30 unit SQ AC-BRKFST #7 each 11/23/23 [humuLIN 70/30 Kwikpen] Potassium Chloride ER [K-Dur 20] 20 meq PO DAILY #60 tab 11/23/23 Torsemide [Demadex] 40 mg PO DAILY #60 tab 11/23/23 predniSONE [Deltasone] 20 mg PO DAILY #60 tab 11/23/23 Allergies Allergy/AdvReac Type Severity Reaction Status Date / Time No Known Allergies Allergy Verified 11/17/23 19:23 Review of Systems ROS Statement: Those systems with pertinent positive or pertinent negative responses have been documented in the HPI. ROS Other: All systems not noted in ROS Statement are negative. Past Medical History Past Medical History: Heart Failure, Hyperlipidemia, Hypertension, Renal Disease Additional Past Medical History / Comment(s): Cardiomyopathy, Last Myocardial Infarction Date:: 2022 History of Any Multi-Drug Resistant Organisms: None Reported Past Surgical History: No Surgical Hx Reported Past Anesthesia/Blood Transfusion Reactions: Unable to Obtain Additional Past Anesthesia/Blood Transfusion Reaction / Comment(s): Pt states he has never had surgery. Past Psychological History: No Psychological Hx Reported Smoking Status: Current every day smoker - Past Family History Father Family Medical History: Diabetes Mellitus, Myocardial Infarction ([place]) Additional Family Medical History / Comment(s): Had leg amputation Mother History Unknown: Yes Family Medical History: No Reported History Sister(s) Family Medical History: Diabetes Mellitus Additional Family Medical History / Comment(s): 1 sister had arm amputated due to diabetes General Exam Limitations: no limitations General appearance: alert Head exam: Present: atraumatic, normocephalic, normal inspection Eye exam: Present: normal appearance, PERRL, EOMI. Absent: scleral icterus, conjunctival injection, periorbital swelling Respiratory exam: Present: normal lung sounds bilaterally. Absent: respiratory distress, wheezes, rales, rhonchi, stridor Cardiovascular Exam: Present: bradycardia GI/Abdominal exam: Present: soft, normal bowel sounds. Absent: distended, tenderness, guarding, rebound, rigid Extremities exam: Present: other (Patient has brawny edema to the bilateral lower extremities which are wrapped in Unna boot. He does have some ascending redness to the left thigh) Neurological exam: Present: alert, oriented X3, CN II-XII intact Psychiatric exam: Present: normal mood, flat affect Course Vital Signs 11/17/23 11/17/23 11/17/23 16:19 20:00 21:00 Temperature Pulse Rate 53 L 96 103 H Respiratory 18 18 20 Rate Blood Pressure 136/73 116/72 115/71 O2 Sat by Pulse 100 96 97 Oximetry 11/17/23 11/17/23 11/18/23 22:00 23:00 04:00 Temperature Pulse Rate 97 96 87 Respiratory 20 20 18 Rate Blood Pressure 137/92 129/87 116/81 O2 Sat by Pulse 97 94 L 97 Oximetry 11/18/23 11/18/23 11/18/23 06:00 07:48 08:00 Temperature Pulse Rate 94 96 99 Respiratory 18 22 20 Rate Blood Pressure 134/85 123/83 O2 Sat by Pulse 98 99 99 Oximetry 11/18/23 11/18/23 11/18/23 10:00 12:00 14:00 Temperature Pulse Rate 106 H 95 65 Respiratory 18 20 14 Rate Blood Pressure 113/82 134/79 107/79 O2 Sat by Pulse 98 97 100 Oximetry 11/18/23 11/18/23 11/18/23 14:04 16:00 17:18 Temperature 97.7 F 97.9 F Pulse Rate 68 68 Respiratory 20 18 Rate Blood Pressure 107/79 108/68 O2 Sat by Pulse 97 98 Oximetry Medical Decision Making - Medical Decision Making Was pt. sent in by a medical professional or institution (RAPHAEL Tubbs, FOOD PROCESSING SCIENTIST, urgent care, hospital, or snf...) When possible be specific @ -No Did you speak to anyone other than the patient for history (EMS, parent, family, police, friend...)? What history was obtained from this source @ -I spoke with EMS and the patient's for history Did you review nursing and triage notes (agree or disagree)? Why? @ -I reviewed and agree with nursing and triage notes Were old charts reviewed (outside hosp., previous admission, EMS record, old EKG, old radiological studies, urgent care reports/EKG's, snf records)? Report findings @ -I reviewed multiple notes from the patient's August 2019 for admission including his discharge summary and echo Differential Diagnosis (chest pain, altered mental status, abdominal pain women, abdominal pain men, vaginal bleeding, weakness, fever, dyspnea, syncope, headache, dizziness, GI bleed, back pain, seizure, CVA, palpatations, mental health, musculoskeletal)? @ -Differential Weakness: Hypoglycemia, shock, sepsis, hyponatremia, anemia, infection, [place], ETOH, adverse medicine reaction, overdose, stroke, this is not meant to be an all-inclusive list. EKG interpreted by me (3pts min.). @ -Yes and demonstrates sinus tachycardia with a rate of 106. NJ interval 159. QRS 90. QTc of 397. No acute ST segment elevations or depressions X-rays interpreted by me (1pt min.). @ -Yes and demonstrates no acute injuries to the chest wall CT interpreted by me (1pt min.). @ -None done U/S interpreted by me (1pt. min.). @ -None done What testing was considered but not performed or refused? (CT, X-rays, U/S, labs)? Why? @ -None What meds were considered but not given or refused? Why? @ -None Did you discuss the management of the patient with other professionals (professionals i.e. , PA, FOOD PROCESSING SCIENTIST, lab, RT, psych nurse, social work supervisor, pneumatic hoist operator, teacher, product safety officer, comp field case manager)? Give summary @ -Spoke with Dr. Gibbons who will admit the patient Was smoking cessation discussed for >3mins.? @ -No Was critical care preformed (if so, how long)? @ -Yes, 35 minutes for insulin drip management Were there social determinants of health that impacted care today? How? (Homelessness, low income, unemployed, alcoholism, drug addiction, transportation, low edu. Level, literacy, decrease access to med. care, care home, rehab)? @ -No Was there de-escalation of care discussed even if they declined (Discuss DNR or withdrawal of care, Hospice)? DNR status @ -No What co-morbidities impacted this encounter? (DM, HTN, Smoking, COPD, CAD, Cancer, CVA, ARF, Chemo, Hep., AIDS, mental health diagnosis, sleep apnea, morbid obesity)? @ -Diabetes mellitus, chronic edema Was patient admitted / discharged? Hospital course, mention meds given and route, prescriptions, significant lab abnormalities, going to OR and other pertinent info. @ -Upon arrival patient seen and evaluated in room 6. Thorough history and physical exam was performed. Patient presents for follow-up and denies any significant injuries other than the left-sided chest wall trauma. Patient does appear to be fatigued and a poor historian. Patient believes that he tripped however due to weakened appearance I did decide to complete laboratory studies. They returned with marked lab abnormalities including hyperglycemia. I did start patient on an insulin drip as I do not want to provide him with too much intravenous fluids. Recommended admission. Patient is covered with a dose of antibiotics due to his lower extremity cellulitis. Patient was agreeable to admission. Spoke with Dr. Gibbons in regards to the patient's case Undiagnosed new problem with uncertain prognosis? @ -No Drug Therapy requiring intensive monitoring for toxicity (Heparin, Nitro, Ins ulin, Cardizem)? @ -IV insulin Were any procedures done? @ -No Diagnosis/symptom? @ -Acute fall, left chest wall trauma, acute hyperglycemia, acute cellulitis Acute, or Chronic, or Acute on Chronic? @ -Acute Uncomplicated (without systemic symptoms) or Complicated (systemic symptoms)? @ -Complicated Side effects of treatment? @ -No Exacerbation, Progression, or Severe Exacerbation? @ -No Poses a threat to life or bodily function? How? (Chest pain, [place], [place], pneumonia, PE, COPD, DKA, ARF, appy, cholecystitis, CVA, Diverticulitis, Homicidal, Suicidal, threat to staff... and all critical care pts) @ -No - Lab Data Result diagrams: 11/23/23 07:59 11/23/23 07:59 Lab Results 11/17/23 11/17/23 11/17/23 Range/Units 17:45 17:45 17:45 WBC 24.8 H (3.8-10.6) k/uL RBC 4.25 L (4.30-5.90) m/uL Hgb 12.9 L (13.0-17.5) gm/dL Hct 38.5 L (39.0-53.0) % MCV 90.6 (80.0-100.0) fL MCH 30.5 (25.0-35.0) pg MCHC 33.6 (31.0-37.0) g/dL RDW 14.2 (11.5-15.5) % Plt Count 255 (150-450) k/uL MPV 9.5 Neutrophils % 93 % Lymphocytes % 2 % Monocytes % 3 % Eosinophils % 0 % Basophils % 0 % Neutrophils # 23.2 H (1.3-7.7) k/uL Lymphocytes # 0.6 L (1.0-4.8) k/uL Monocytes # 0.9 (0-1.0) k/uL Eosinophils # 0.1 (0-0.7) k/uL Basophils # 0.1 (0-0.2) k/uL Sodium 123 L (137-145) mmol/L Potassium 3.7 (3.5-5.1) mmol/L Chloride 79 L (98-107) mmol/L Carbon Dioxide 27 (22-30) mmol/L Anion Gap 17 mmol/L BUN 110 H* (9-20) mg/dL Creatinine 2.01 H (0.66-1.25) mg/dL Est GFR (CKD-EPI)AfAm 37 (>60 ml/min/1.73 sqM) Est GFR (CKD-EPI)NonAf 32 (>60 ml/min/1.73 sqM) Glucose 750 H* (74-99) mg/dL Calcium 8.5 (8.4-10.2) mg/dL Phosphorus (2.5-4.5) mg/dL Magnesium 1.0 L (1.6-2.3) mg/dL Total Bilirubin 0.8 (0.2-1.3) mg/dL AST 35 (17-59) U/L ALT 28 (4-49) U/L Alkaline Phosphatase 189 H (38-126) U/L Troponin I 0.334 H* (0.000-0.034) ng/mL Total Protein 6.2 L (6.3-8.2) g/dL Albumin 3.2 L (3.5-5.0) g/dL Acetone, Qual (Negative) 11/17/23 11/17/23 Range/Units 19:16 19:16 WBC (3.8-10.6) k/uL RBC (4.30-5.90) m/uL Hgb (13.0-17.5) gm/dL Hct (39.0-53.0) % MCV (80.0-100.0) fL MCH (25.0-35.0) pg MCHC (31.0-37.0) g/dL RDW (11.5-15.5) % Plt Count (150-450) k/uL MPV Neutrophils % % Lymphocytes % % Monocytes % % Eosinophils % % Basophils % % Neutrophils # (1.3-7.7) k/uL Lymphocytes # (1.0-4.8) k/uL Monocytes # (0-1.0) k/uL Eosinophils # (0-0.7) k/uL Basophils # (0-0.2) k/uL Sodium 124 L (137-145) mmol/L Potassium 2.7 L* (3.5-5.1) mmol/L Chloride 83 L (98-107) mmol/L Carbon Dioxide 27 (22-30) mmol/L Anion Gap 14 mmol/L BUN 112 H* (9-20) mg/dL Creatinine 2.01 H (0.66-1.25) mg/dL Est GFR (CKD-EPI)AfAm 37 (>60 ml/min/1.73 sqM) Est GFR (CKD-EPI)NonAf 32 (>60 ml/min/1.73 sqM) Glucose 648 H* (74-99) mg/dL Calcium (8.4-10.2) mg/dL Phosphorus 3.0 (2.5-4.5) mg/dL Magnesium (1.6-2.3) mg/dL Total Bilirubin (0.2-1.3) mg/dL AST (17-59) U/L ALT (4-49) U/L Alkaline Phosphatase (38-126) U/L Troponin I (0.000-0.034) ng/mL Total Protein (6.3-8.2) g/dL Albumin (3.5-5.0) g/dL Acetone, Qual Negative (Negative) Disposition Clinical Impression: Hypomagnesemia, Hyponatremia, Leukocytosis, Cellulitis, leg, Hyperglycemia, Fall, Abrasion of chest wall Disposition: ADMITTED IP TO THIS [facility] Condition: Stable Is patient prescribed a controlled substance at d/c from ED?: No Time of Disposition: 19:45 Decision to Admit Reason: Admit from EC Decision Date: 11/17/23 Decision Time: 19:45
[2023-11-17 19:44] LABS: Blood Urea Nitrogen 112 mg/dL (9-20); Glucose 648 mg/dL (74-99); Potassium 2.7 mmol/L (3.5-5.1)
[2023-11-17] MEDS ORDERED: NALOXONE 0.4 MG/ML 1 ML VIAL IV PRN (19:47)
[2023-11-17] MEDS: SODIUM CHLORIDE 0.9% 500 ML 500 ML IV STA (19:55)
[2023-11-17] MEDS: AMPICILLIN-SULBACTAM 3 GM in SODIUM CHLORIDE 0.9% 100 ML IVPB STA (19:58)
[2023-11-17] MEDS: VANCOMYCIN 2,000 MG in SODIUM CHLORIDE 0.9% 500 ML 500 ML IVPB STA (20:53)
[2023-11-17] MEDS: POTASSIUM CHLORIDE 10 MEQ in WATER FOR INJECTION 1 100ML.BAG IVPB SCH (21:05)
[2023-11-17] MEDS: POTASSIUM CHLORIDE ER 20 MEQ TAB.ER PO STA (21:08)
[2023-11-17 22:41] LABS: Glucose,Whole Blood 174 mg/dL (70-110)
[2023-11-17 22:46] LABS: Glucose,Whole Blood 330 mg/dL (70-110)
[2023-11-17 23:59] LABS: Glucose,Whole Blood 337 mg/dL (70-110)
[2023-11-18 00:25] LABS: Appearance,Urine Clear (Clear); Bilirubin,Urine Negative (Negative); Blood,Urine Trace (Negative); Color,Urine Colorless; Glucose,Urine (UA) 4+ (Negative); Hyaline Casts,Urine 1 /lpf (0-2); Ketones,Urine Negative (Negative); Leukocyte Esterase,Urine Negative (Negative); Nitrite,Urine Negative (Negative); PH, Urine 6.5 (5.0-8.0); Protein,Urine 1+ (Negative); RBC,Urine <1 /hpf (0-5); Specific Gravity,Urine 1.014 (1.001-1.035); Squamous Epithelial Cell,Urine <1 /hpf (0-4); Urobilinogen,Urine <2.0 mg/dL (<2.0); WBC,Urine 1 /hpf (0-5)
[2023-11-18 00:34] LABS: African American GFR (CKD) 39 (>60 ml/min/1.73 sqM); Anion Gap 11 mmol/L; Calcium 8.3 mg/dL (8.4-10.2); Carbon Dioxide 25 mmol/L (22-30); Chloride 92 mmol/L (98-107); Glucose 287 mg/dL (74-99); Non-African American GFR(CKD) 34 (>60 ml/min/1.73 sqM); Potassium 3.1 mmol/L (3.5-5.1); Sodium 128 mmol/L (137-145)
[2023-11-18 00:36] LABS: Blood Urea Nitrogen 105 mg/dL (9-20)
[2023-11-18 01:00] LABS: Glucose,Whole Blood 341 mg/dL (70-110)
[2023-11-18] MEDS: VANCOMYCIN 2,000 MG in SODIUM CHLORIDE 0.9% 500 ML 500 ML IVPB ONE (01:00)
[2023-11-18] MEDS: HYDROcodone/APAP 5-325MG 1 EACH TAB PO PRN (01:29)
--- NOTE | 2023-11-18 01:29 | P.HPIM ---
History of Present Illness H&P Date: 11/17/23 Patient is a 73-year-old male with a PMH of insulin-dependent type II DM hypertension, CKD stage III, hyperlipidemia, who was brought into the emergency room accompanied by his after a fall at home. The patient was somewhat confused at the time of interview and history thereby supplemented from the chart and from the ED provider. The patient had reportedly been feeling weak at home over the past few days and had lost his balance earlier today, leading to a fall where he hit the left side of his chest against an entertainment center. The patient had denied experiencing head trauma or loss of consciousness. He has been feeling progressively weaker throughout the day today which led to his fall as per patient. He also reported bilateral shoulder achiness ongoing for the past several days. States that he has been following with Dr. Castro for his mild bilateral lower extremity edema and redness, with both of his legs being wrapped by the above provider this past Saturday. Patient notes that his manages his insulin and injects them daily as needed. He does not recall his medication name or the dosage. He denied experiencing shortness of breath, fever, chills, nausea, vomiting, abdominal pain, diarrhea. Chest x-ray in the emergency room was unremarkable with EKG showing sinus tachycardia with PVCs at 106 bpm as reviewed by me. Laboratory evaluation revealed a glucose of 750, BUN 110, creatinine 2.01 (at baseline), troponin 0.334, with sodium 123, magnesium 1.0, WBC count 24.8, and hemoglobin 12.9 with an unremarkable UA and a negative acetone. ED documentation reviewed and case discussed with ED provider. Review of systems: Pertinent positives and negatives as discussed in HPI, a complete review of systems was performed and all other systems are negative. Physical examination: Vital signs reviewed General: non toxic, no distress, appears at stated age, normal weight Derm: bilateral lower extremity trace edema with venous stasis dermatitis noted, warm Head: atraumatic, normocephalic, symmetric Eyes: EOMI, no lid lag, anicteric sclera, pupils equal round reactive to light ENT: Nose and ears atraumatic Neck: No cervical lymphadenopathy, trachea midline, supple Mouth: no lip lesion, mucus membranes moist Cardiovascular: S1S2 reg, no murmur, positive dorsalis pedis pulse bilateral, no edema Lungs: CTA bilateral, no rhonchi, no rales, no accessory muscle use Abdominal: soft, nontender to palpation, no guarding Ext: muscle strength 4 out of 5 in all 4 extremities grossly, no gross muscle atrophy, no contractures, Neuro: CN II-XI grossly intact, no gross focal neuro deficits Psych: Alert, oriented only to person and place, not fully oriented to time Assessment: Uncontrolled type 2 diabetes mellitus Elevated troponin, suspect type II CO in setting of acute illness, patient denying chest discomfort or shortness of breath Hypomagnesemia Hypochloremic hyponatremia Imaging: Chest x-ray in the emergency room was unremarkable with EKG showing sinus tachycardia with PVCs at 106 bpm as reviewed by me. Data Review: Laboratory evaluation revealed a glucose of 750, BUN 110, creatinine 2.01 (at baseline), troponin 0.334, with sodium 123, magnesium 1.0, WBC count 24.8, and hemoglobin 12.9 with an unremarkable UA and a negative acetone. Plan: Patient was initially placed on insulin infusion which was halted in light of significant hypokalemia Start patient on insulin sliding scale Replace potassium and magnesium Trend troponin for now Cardiac monitoring Low suspicion for active infection at this time Follow-up blood cultures Continue IV fluids with normal saline 130 ml/h DVT prophylaxis: Lovenox subcu The patient is admitted with an anticipated greater th next an 2 midnight stay for evaluation of hyperglycemia CODE STATUS: Full Code Discussed with: Patient Anticipated discharge place: Home Past Medical History Past Medical History: Heart Failure, Hyperlipidemia, Hypertension, Renal Disease Additional Past Medical History / Comment(s): Cardiomyopathy, Last Myocardial Infarction Date:: 2022 History of Any Multi-Drug Resistant Organisms: None Reported Past Surgical History: No Surgical Hx Reported Past Anesthesia/Blood Transfusion Reactions: Unable to Obtain Additional Past Anesthesia/Blood Transfusion Reaction / Comment(s): Pt states he has never had surgery. Past Psychological History: No Psychological Hx Reported Smoking Status: Current every day smoker - Past Family History Father Family Medical History: Diabetes Mellitus, Myocardial Infarction ([place]) Additional Family Medical History / Comment(s): Had leg amputation Mother History Unknown: Yes Family Medical History: No Reported History Sister(s) Family Medical History: Diabetes Mellitus Additional Family Medical History / Comment(s): 1 sister had arm amputated due to diabetes Medications and Allergies Home Medications Medication Instructions Recorded Confirmed Type Atorvastatin [Lipitor] 40 mg PO HS #30 tab 08/17/20 11/17/23 Rx Isosorbide Mononitrate ER [Imdur] 60 mg PO DAILY #30 tab.er.24h 08/17/20 11/17/23 Rx amLODIPine [Norvasc] 10 mg PO DAILY #30 tab 08/17/20 11/17/23 Rx hydrALAZINE HCL [Apresoline] 100 mg PO TID-W/MEALS 05/06/23 11/17/23 History Pantoprazole [Protonix] 40 mg PO DAILY 30 Days #30 tab 05/10/23 11/17/23 Rx metOLazone [Zaroxolyn] 5 mg PO Q2D 09/26/23 11/17/23 History Acetaminophen Tab [Tylenol] 650 mg PO Q8H PRN 11/17/23 11/17/23 History Calcium Acetate [Phoslo] 667 mg PO TID-W/MEALS 11/17/23 11/17/23 History Cefuroxime [Ceftin] 250 mg PO Q12H 11/17/23 11/17/23 History Insulin NPH Hum/Reg Insulin Hm 10 unit SQ AC-SUPPER 11/17/23 11/17/23 History [humuLIN 70/30 Kwikpen] Insulin NPH Hum/Reg Insulin Hm 20 unit SQ AC-BRKFST 11/17/23 11/17/23 History [humuLIN 70/30 Kwikpen] Magnesium Oxide [Mag-Ox] 400 mg PO DAILY 11/17/23 11/17/23 History Metoprolol Tartrate [Lopressor] 50 mg PO BID-W/MEALS 11/17/23 11/17/23 History Potassium Chloride ER [K-Dur 20] 40 meq PO BID 11/17/23 11/17/23 History Torsemide [Demadex] 20 mg PO DAILY 11/17/23 11/17/23 History predniSONE 40 mg PO DAILY 11/17/23 11/17/23 History Allergies Allergy/AdvReac Type Severity Reaction Status Date / Time No Known Allergies Allergy Verified 11/17/23 19:23 Physical Exam Vitals: Vital Signs Pulse Resp BP Pulse Ox 11/17/23 20:00 96 18 116/72 96 11/17/23 16:19 53 L 18 136/73 100 Intake and Output 11/17/23 11/17/23 11/18/23 14:59 22:59 06:59 Other: Weight 124.738 kg Results CBC & Chem 7: 11/17/23 17:45 11/17/23 23:47 Labs: Abnormal Lab Results - Last 24 Hours (Table) 11/17/23 11/17/23 11/17/23 Range/Units 17:45 17:45 17:45 WBC 24.8 H (3.8-10.6) k/uL RBC 4.25 L (4.30-5.90) m/uL Hgb 12.9 L (13.0-17.5) gm/dL Hct 38.5 L (39.0-53.0) % Neutrophils # 23.2 H (1.3-7.7) k/uL Lymphocytes # 0.6 L (1.0-4.8) k/uL Sodium 123 L (137-145) mmol/L Potassium (3.5-5.1) mmol/L Chloride 79 L (98-107) mmol/L BUN 110 H* (9-20) mg/dL Creatinine 2.01 H (0.66-1.25) mg/dL Glucose 750 H* (74-99) mg/dL POC Glucose (mg/dL) (70-110) mg/dL Magnesium 1.0 L (1.6-2.3) mg/dL Alkaline Phosphatase 189 H (38-126) U/L Troponin I 0.334 H* (0.000-0.034) ng/mL Total Protein 6.2 L (6.3-8.2) g/dL Albumin 3.2 L (3.5-5.0) g/dL 11/17/23 11/17/23 11/17/23 Range/Units 19:16 22:37 22:45 WBC (3.8-10.6) k/uL RBC (4.30-5.90) m/uL Hgb (13.0-17.5) gm/dL Hct (39.0-53.0) % Neutrophils # (1.3-7.7) k/uL Lymphocytes # (1.0-4.8) k/uL Sodium 124 L (137-145) mmol/L Potassium 2.7 L* (3.5-5.1) mmol/L Chloride 83 L (98-107) mmol/L BUN 112 H* (9-20) mg/dL Creatinine 2.01 H (0.66-1.25) mg/dL Glucose 648 H* (74-99) mg/dL POC Glucose (mg/dL) 174 H 330 H (70-110) mg/dL Magnesium (1.6-2.3) mg/dL Alkaline Phosphatase (38-126) U/L Troponin I (0.000-0.034) ng/mL Total Protein (6.3-8.2) g/dL Albumin (3.5-5.0) g/dL
[2023-11-18] MEDS: MAGNESIUM SULFATE-D5W PMX 1 GM in DEXTROSE/WATER 1 100ML.BAG IVPB ONE (01:42)
[2023-11-18] MEDS ORDERED: Potassium Replacement Protocol 1 EACH MISC MISCELLANE PRN (03:22)
[2023-11-18] MEDS: POTASSIUM CHLORIDE 10 MEQ in WATER FOR INJECTION 1 100ML.BAG IVPB SCH ×2 (03:34→05:15)
[2023-11-18 04:24] LABS: ALT 23 U/L (4-49); AST 23 U/L (17-59); African American GFR (CKD) 39 (>60 ml/min/1.73 sqM); Albumin 2.6 g/dL (3.5-5.0); Alkaline Phosphatase 159 U/L (38-126); Anion Gap 7 mmol/L; Blood Urea Nitrogen 94 mg/dL (9-20); Calcium 8.1 mg/dL (8.4-10.2); Carbon Dioxide 29 mmol/L (22-30); Chloride 92 mmol/L (98-107); Glucose 315 mg/dL (74-99); Non-African American GFR(CKD) 34 (>60 ml/min/1.73 sqM); Potassium 2.9 mmol/L (3.5-5.1); Sodium 128 mmol/L (137-145); Total Bilirubin 0.5 mg/dL (0.2-1.3); Total Protein 5.4 g/dL (6.3-8.2)
[2023-11-18 04:48] LABS: Basophils % (A) 0 %; Eosinophils # (A) 0.1 k/uL (0-0.7); Eosinophils % (A) 0 %; HCT 32.9 % (39.0-53.0); HGB 11.8 gm/dL (13.0-17.5); Lymphocytes # (A) 0.5 k/uL (1.0-4.8); Lymphocytes % (A) 3 %; MCH 31.6 pg (25.0-35.0); MCHC 35.9 g/dL (31.0-37.0); Mean Platelet Volume 9.4; Monocytes # (A) 0.8 k/uL (0-1.0); Monocytes % (A) 4 %; Neutrophils # (A) 16.5 k/uL (1.3-7.7); Neutrophils % (A) 92 %; Platelet Count 205 k/uL (150-450); RBC 3.74 m/uL (4.30-5.90); RDW 14.4 % (11.5-15.5); WBC 17.9 k/uL (3.8-10.6)
[2023-11-18] MEDS: MAGNESIUM SULFATE-D5W PMX 1 GM in DEXTROSE/WATER 1 100ML.BAG IVPB SCH (05:09)
[2023-11-18] MEDS: POTASSIUM CHLORIDE ER 20 MEQ TAB.ER PO SCH ×2 (05:12→12:49)
[2023-11-18 07:47] LABS: Glucose,Whole Blood 302 mg/dL (70-110)
[2023-11-18] MEDS: INSULIN ASPART (NovoLOG) 100 UNIT/ML VIAL SQ SCH (08:01)
[2023-11-18] MEDS: ENOXAPARIN 40 MG/0.4 ML SYRINGE SQ SCH (08:06)
[2023-11-18 10:09] LABS: Glucose,Whole Blood 225 mg/dL (70-110)
[2023-11-18 10:32] LABS: African American GFR (CKD) 44 (>60 ml/min/1.73 sqM); Anion Gap 8 mmol/L; Blood Urea Nitrogen 86 mg/dL (9-20); Calcium 8.2 mg/dL (8.4-10.2); Carbon Dioxide 26 mmol/L (22-30); Chloride 94 mmol/L (98-107); Glucose 246 mg/dL (74-99); Non-African American GFR(CKD) 38 (>60 ml/min/1.73 sqM); Potassium 3.6 mmol/L (3.5-5.1); Sodium 128 mmol/L (137-145)
--- NOTE | 2023-11-18 11:54 | P.CRDCN ---
History of Present Illness Consult date: 11/18/23 Reason for Consult (text): Elevated troponin History of present illness: History of present illness: This is a 73-year-old male patient of Dr. Curtis Haddad with past medical history of coronary artery disease status post angioplasty, chronic kidney disease, hypertension, dyslipidemia, mild aortic stenosis. We have been asked to evaluate the patient for elevated troponins. Patient is significantly confused and unable to give any reliable history but he is complaining of abdominal pain. No chest pain. No fever or chills. According to the ER documentation, patient presented to the hospital due to an abrasion on his chest after a fall where he lost his balance at home. He did not hit his head and there was no loss of consciousness apparently. Patient has chronic lower extremity edema and redness. Patient is seen today in the emergency center waiting for a bed on the cardiac stepdown unit. EKG sinus tachycardia with nonspecific ST changes. Chest x-ray: No acute process WBC initially 24.8. Hemoglobin is 11.8. Initial sodium 123 and now 128. Potassium 3.6 after replacement, BUN 86 creatinine 1.73. Glucose 246. Troponins 0.334, 0.327, 0.3. Alkaline phosphatase 159. Urinalysis negative for infection. Acetone negative. Home cardiac medications: Amlodipine 10 mg daily, atorvastatin 40 mg at bedtime, hydralazine 100 mg 3 times daily, Imdur 60 mg daily, magnesium oxide 400 mg daily, metolazone 5 mg every 2 days, Lopressor 50 mg twice daily, potassium chloride 40 mill equivalents twice daily, Demadex 20 mg daily. Echocardiogram performed on 09/27/2023 revealed EF of 55 to 60%. No pericardial effusion. Limited study. Lexiscan Cardiolite stress test performed in the office on 06/12/2023 revealed a negative stress test by EKG criteria. Probably normal myocardial perfusion and function. Review Of Systems: At the time of my exam: Unable to obtain due to patient's confusion Physical examination: Gen: This is a 73-year-old male in no acute distress. VS: reviewed, blood pressure 123/83, heart rate 96, pulse ox 99% on room air. HEENT: Head is atraumatic, normocephalic. Pupils equal, round. Sclerae is anicteric. NECK: Supple. No JVD. LUNGS: Clear to auscultation. No wheezes or rhonchi. No intercostal retracti ons. HEART: Regular rate and rhythm. Systolic ejection murmur at the aortic area.. ABDOMEN: Soft No tenderness. EXTREMITIES: Severe bilateral pedal edema. No calf tenderness. NEUROLOGICAL: Patient is awake, alert. Assessment: Elevated troponin, possibly due to chronic kidney disease, cannot rule out coronary artery disease Metabolic encephalopathy Leukocytosis Hyponatremia Chronic kidney disease Plan: Resume patient's home cardiac medications Obtain 2-D echocardiogram and Doppler study to assess cardiac structure and function Add consult for nephrology Plan for medical treatment of possible coronary artery disease and absence of EKG changes and absence of chest pain. Further recommendations to follow based upon clinical course Thank you kindly for this consultation. Nurse practitioner note has been reviewed, I agree with documented findings and plan of care. Patient was seen and examined. Past Medical History Past Medical History: Heart Failure, Hyperlipidemia, Hypertension, Renal Disease Additional Past Medical History / Comment(s): Cardiomyopathy, Last Myocardial Infarction Date:: 2022 History of Any Multi-Drug Resistant Organisms: None Reported Past Surgical History: No Surgical Hx Reported Past Anesthesia/Blood Transfusion Reactions: Unable to Obtain Additional Past Anesthesia/Blood Transfusion Reaction / Comment(s): Pt states he has never had surgery. Past Psychological History: No Psychological Hx Reported Smoking Status: Current every day smoker - Past Family History Father Family Medical History: Diabetes Mellitus, Myocardial Infarction ([place]) Additional Family Medical History / Comment(s): Had leg amputation Mother History Unknown: Yes Family Medical History: No Reported History Sister(s) Family Medical History: Diabetes Mellitus Additional Family Medical History / Comment(s): 1 sister had arm amputated due to diabetes Medications and Allergies Home Medications Medication Instructions Recorded Confirmed Type Atorvastatin [Lipitor] 40 mg PO HS #30 tab 08/17/20 11/17/23 Rx Isosorbide Mononitrate ER [Imdur] 60 mg PO DAILY #30 tab.er.24h 08/17/20 11/17/23 Rx amLODIPine [Norvasc] 10 mg PO DAILY #30 tab 08/17/20 11/17/23 Rx hydrALAZINE HCL [Apresoline] 100 mg PO TID-W/MEALS 05/06/23 11/17/23 History Pantoprazole [Protonix] 40 mg PO DAILY 30 Days #30 tab 05/10/23 11/17/23 Rx metOLazone [Zaroxolyn] 5 mg PO Q2D 09/26/23 11/17/23 History Acetaminophen Tab [Tylenol] 650 mg PO Q8H PRN 11/17/23 11/17/23 History Calcium Acetate [Phoslo] 667 mg PO TID-W/MEALS 11/17/23 11/17/23 History Cefuroxime [Ceftin] 250 mg PO Q12H 11/17/23 11/17/23 History Insulin NPH Hum/Reg Insulin Hm 10 unit SQ AC-SUPPER 11/17/23 11/17/23 History [humuLIN 70/30 Kwikpen] Insulin NPH Hum/Reg Insulin Hm 20 unit SQ AC-BRKFST 11/17/23 11/17/23 History [humuLIN 70/30 Kwikpen] Magnesium Oxide [Mag-Ox] 400 mg PO DAILY 11/17/23 11/17/23 History Metoprolol Tartrate [Lopressor] 50 mg PO BID-W/MEALS 11/17/23 11/17/23 History Potassium Chloride ER [K-Dur 20] 40 meq PO BID 11/17/23 11/17/23 History Torsemide [Demadex] 20 mg PO DAILY 11/17/23 11/17/23 History predniSONE 40 mg PO DAILY 11/17/23 11/17/23 History Allergies Allergy/AdvReac Type Severity Reaction Status Date / Time No Known Allergies Allergy Verified 11/17/23 19:23 Physical Exam Vitals: Vital Signs Pulse Resp BP Pulse Ox 11/18/23 06:00 94 18 134/85 98 11/18/23 04:00 87 18 116/81 97 11/17/23 23:00 96 20 129/87 94 L 11/17/23 22:00 97 20 137/92 97 11/17/23 21:00 103 H 20 115/71 97 11/17/23 20:00 96 18 116/72 96 11/17/23 16:19 53 L 18 136/73 100 Intake and Output 11/17/23 11/18/23 11/18/23 22:59 06:59 14:59 Output Total 800 Balance -800 Output: Urine 800 Other: Weight 124.738 kg Results 11/18/23 03:14 11/18/23 09:16 Cardiac Enzymes 0511/17/23 11/18/23 Range/Units 17:45 17:45 01:39 AST 35 (17-59) U/L Troponin I 0.334 H* 0.327 H* (0.000-0.034) ng/mL 11/18/23 11/18/23 Range/Units 03:14 03:14 AST 23 (17-59) U/L Troponin I 0.300 H* (0.000-0.034) ng/mL CBC 11/17/23 11/18/23 Range/Units 17:45 03:14 WBC 24.8 H 17.9 H (3.8-10.6) k/uL RBC 4.25 L 3.74 L (4.30-5.90) m/uL Hgb 12.9 L 11.8 L (13.0-17.5) gm/dL Hct 38.5 L 32.9 L (39.0-53.0) % Plt Count 255 205 (150-450) k/uL Comprehensive Metabolic Panel 11/17/23 11/17/23 11/17/23 Range/Units 17:45 19:16 23:47 Sodium 123 L 124 L 128 L (137-145) mmol/L Potassium 3.7 2.7 L* 3.1 L (3.5-5.1) mmol/L Chloride 79 L 83 L 92 L (98-107) mmol/L Carbon Dioxide 27 27 25 (22-30) mmol/L BUN 110 H* 112 H* 105 H* (9-20) mg/dL Creatinine 2.01 H 2.01 H 1.90 H (0.66-1.25) mg/dL Glucose 750 H* 648 H* 287 H (74-99) mg/dL Calcium 8.5 8.3 L (8.4-10.2) mg/dL AST 35 (17-59) U/L ALT 28 (4-49) U/L Alkaline Phosphatase 189 H (38-126) U/L Total Protein 6.2 L (6.3-8.2) g/dL Albumin 3.2 L (3.5-5.0) g/dL 11/18/23 Range/Units 03:14 Sodium 128 L (137-145) mmol/L Potassium 2.9 L (3.5-5.1) mmol/L Chloride 92 L (98-107) mmol/L Carbon Dioxide 29 (22-30) mmol/L BUN 94 H (9-20) mg/dL Creatinine 1.92 H (0.66-1.25) mg/dL Glucose 315 H (74-99) mg/dL Calcium 8.1 L (8.4-10.2) mg/dL AST 23 (17-59) U/L ALT 23 (4-49) U/L Alkaline Phosphatase 159 H (38-126) U/L Total Protein 5.4 L (6.3-8.2) g/dL Albumin 2.6 L (3.5-5.0) g/dL Current Medications Generic Name Dose Route Start Last Admin Trade Name Freq PRN Reason Stop Dose Admin Hydrocodone Bitart/Acetaminophen 1 each 11/17/23 19:47 11/18/23 01:29 Hydrocodone/Apap 5-325mg 1 Each Tab PO 1 each Q4HR PRN Administration Moderate Pain (Scale 4 to 6) Dextrose/Water 25 ml 11/17/23 18:45 Dextrose 50% Syringe 50 Ml IVP PER PROTOCOL PRN Hypoglycemia Protocol Dextrose/Water 50 ml 11/17/23 18:45 Dextrose 50% Syringe 50 Ml IVP PER PROTOCOL PRN Hypoglycemia Protocol Enoxaparin Sodium 40 mg 11/18/23 09:00 Enoxaparin 40 Mg/0.4 Ml Syringe SQ DAILY LUCIANO Sodium Chloride 1,000 mls @ 130 mls/hr 11/17/23 18:45 11/18/23 05:58 Saline 0.9% IV 130 mls/hr .[id number] LUCIANO Administration Vancomycin HCl 2,000 mg/ 500 mls @ 167 mls/hr 11/18/23 12:00 Sodium Chloride IVPB 11/18/23 14:59 ONCE ONE Potassium Chloride 10 meq/ IV 100 mls @ 100 mls/hr 11/18/23 04:00 11/18/23 06:56 Solution IVPB 11/18/23 07:59 100 mls/hr Q1HR LUCIANO Administration Protocol Potassium Chloride 10 meq/ IV 100 mls @ 100 mls/hr 11/18/23 05:00 11/18/23 05:16 Solution IVPB 11/18/23 08:59 Not Given Q1HR LUCIANO Insulin Aspart 0 unit 11/18/23 07:30 Insulin Aspart (Novolog) 100 Unit/Ml Vial SQ ACHS LUCIANO Protocol Miscellaneous Information 1 each 11/17/23 18:45 Magnesium Replacement Protocol 1 Each Misc MISCELLANE DAILY PRN Per Protocol Protocol Miscellaneous Information 1 each 11/17/23 18:45 Potassium Replacement Protocol 1 Each Misc MISCELLANE DAILY PRN Per Protocol Naloxone HCl 0.2 mg 11/17/23 19:47 Naloxone 0.4 Mg/Ml 1 Ml Vial IV Q2M PRN Opioid Reversal Potassium Chloride 40 meq 11/18/23 06:00 11/18/23 05:12 Potassium Chloride Er 20 Meq Tab.Er PO 11/18/23 08:01 40 meq Q2HR [facility] Administration Intake and Output 11/17/23 11/18/23 11/18/23 22:59 06:59 14:59 Output Total 800 Balance -800 Output: Urine 800 Other: Weight 124.738 kg 11/18/23 03:14 11/18/23 03:14
[2023-11-18 12:24] LABS: Glucose,Whole Blood 212 mg/dL (70-110)
[2023-11-18] MEDS: MAGNESIUM OXIDE 400 MG TAB PO SCH (12:49)
[2023-11-18] MEDS: ISOSORBIDE MONONITRATE ER 60 MG TAB.ER.24H PO SCH (12:49)
[2023-11-18] MEDS: METOPROLOL TARTRATE 50 MG TAB PO SCH (12:49)
--- NOTE | 2023-11-18 14:56 | P.PN ---
Subjective Progress Note Date: 11/18/23 Hospital Course: 73-year-old male with a history of insulin-dependent type 2 diabetes, hyperten suly, CKD stage III, dyslipidemia, CAD status post angioplasty, mild aortic stenosis presenting after a fall at home. Patient has also been slightly encephalopathic. Unclear if he has been taking his medications at home. Chest x-ray in the emergency room was unremarkable with EKG showing sinus tachycardia with PVCs at 106 bpm. Laboratory evaluation revealed a glucose of 750, BUN 110, creatinine 2.01 (at baseline), troponin 0.334, with sodium 123, magnesium 1.0, WBC count 24.8, and hemoglobin 12.9 with an unremarkable UA and a negative acetone. Patient was initially started on insulin drip, but due to persistent hypokalemia, discontinued, now on sliding scale insulin. Cardiology and neph rology consulted. Subjective: Seen and examined at bedside. No acute events overnight. Denies any chest pain, shortness of breath, abdominal pain, nausea, vomiting, urinary or bowel complaints. Pertinent positives and negatives as discussed above, a complete review of systems was performed and all other systems are negative. Vitals Signs Reviewed. General: Nontoxic, no distress, appears at stated age, generally unkempt, morbidly obese Derm: Warm, dry, bilateral lower extremity edema and erythema Head: Atraumatic, normocephalic, symmetric Eyes: EOMI, no lid lag, anicteric sclera Mouth: No lip lesion, mucus membranes moist Cardiovascular: S1S2 reg, no murmur Lungs: CTA bilateral, no rhonchi, no rales, no accessory muscle use Abdominal: Soft, nontender to palpation, no guarding, no appreciable organomegaly Ext: No gross muscle atrophy, no edema, no contractures Neuro: CN II-XI grossly intact, no focal neuro deficits Psych: Alert, oriented, appropriate affect Data Reviewed Today: Pertinent Labs: WBC 17. 9, hemoglobin 11.8, sodium 128, potassium 3.6, creatinine 1.73, blood sugars range between 212 08/03/2001 Imaging: No new imaging Assessment and Plan: Patient was severely ill, needs close monitoring, prognosis guarded Active: Sepsis secondary to Serratia bacteremia, unknown source Acute metabolic encephalopathy Uncontrolled type 2 diabetes Elevated troponin, downtrending, unlikely to be ACS Chronic kidney disease stage III Mild hyponatremia History of hypertension History of dyslipidemia dyslipidemia History of CAD status post angioplasty -Repeat blood cultures ordered -Also started on IV cefepime 2 g every 8 hours, continue on IV vancomycin, monitor for renal toxicity -ID consulted -Urine clear, possibly abdominal source for gram-negative bacteremia -Patient has also been on Ceftin outpatient, presumably for lower extremity edema -Patient is also on normal saline at 130 cc an hour -Potassium now improved, magnesium also improved. -Currently holding diuretics and antihypertensives -Continue sliding scale insulin, monitor for hypoglycemia -Also started on Levemir 10 -Nephrology consulted by cardiology -Cardiology note reviewed, echocardiogram ordered, continue metoprolol twice daily 50 daily, Imdur 60 daily, atorvastatin 40 daily -Unclear why patient was taking prednisone at home. DVT ppx: Subcu heparin Code status: Full code Anticipated discharge place: Pending clinical course Anticipated discharge time: Pending clinical course Objective - Vital Signs Vital signs: Vital Signs Temp 97.7 F 11/18/23 14:04 Pulse 68 11/18/23 14:04 Resp 20 11/18/23 14:04 BP 107/79 11/18/23 14:04 Pulse Ox 97 11/18/23 14:04 FiO2 Intake & Output 11/17/23 11/18/23 11/18/23 18:59 06:59 18:59 Output Total 800 Balance -800 Weight 124.738 kg Output: Urine 800 - Labs CBC & Chem 7: 11/18/23 03:14 11/18/23 09:16 Labs: Abnormal Lab Results - Last 24 Hours (Table) 11/17/23 11/17/23 11/17/23 Range/Units 17:45 17:45 17:45 WBC 24.8 H (3.8-10.6) k/uL RBC 4.25 L (4.30-5.90) m/uL Hgb 12.9 L (13.0-17.5) gm/dL Hct 38.5 L (39.0-53.0) % Neutrophils # 23.2 H (1.3-7.7) k/uL Lymphocytes # 0.6 L (1.0-4.8) k/uL Sodium 123 L (137-145) mmol/L Potassium (3.5-5.1) mmol/L Chloride 79 L (98-107) mmol/L BUN 110 H* (9-20) mg/dL Creatinine 2.01 H (0.66-1.25) mg/dL Glucose 750 H* (74-99) mg/dL POC Glucose (mg/dL) (70-110) mg/dL Hemoglobin A1c (<=6.0) % Calcium (8.4-10.2) mg/dL Magnesium 1.0 L (1.6-2.3) mg/dL Alkaline Phosphatase 189 H (38-126) U/L Troponin I 0.334 H* (0.000-0.034) ng/mL Total Protein 6.2 L (6.3-8.2) g/dL Albumin 3.2 L (3.5-5.0) g/dL Urine Protein (Negative) Urine Glucose (UA) (Negative) Urine Blood (Negative) 11/17/23 11/17/23 11/17/23 Range/Units 19:16 22:37 22:45 WBC (3.8-10.6) k/uL RBC (4.30-5.90) m/uL Hgb (13.0-17.5) gm/dL Hct (39.0-53.0) % Neutrophils # (1.3-7.7) k/uL Lymphocytes # (1.0-4.8) k/uL Sodium 124 L (137-145) mmol/L Potassium 2.7 L* (3.5-5.1) mmol/L Chloride 83 L (98-107) mmol/L BUN 112 H* (9-20) mg/dL Creatinine 2.01 H (0.66-1.25) mg/dL Glucose 648 H* (74-99) mg/dL POC Glucose (mg/dL) 174 H 330 H (70-110) mg/dL Hemoglobin A1c (<=6.0) % Calcium (8.4-10.2) mg/dL Magnesium (1.6-2.3) mg/dL Alkaline Phosphatase (38-126) U/L Troponin I (0.000-0.034) ng/mL Total Protein (6.3-8.2) g/dL Albumin (3.5-5.0) g/dL Urine Protein (Negative) Urine Glucose (UA) (Negative) Urine Blood (Negative) 11/17/23 11/17/23 11/18/23 Range/Units 23:47 23:58 00:00 WBC (3.8-10.6) k/uL RBC (4.30-5.90) m/uL Hgb (13.0-17.5) gm/dL Hct (39.0-53.0) % Neutrophils # (1.3-7.7) k/uL Lymphocytes # (1.0-4.8) k/uL Sodium 128 L (137-145) mmol/L Potassium 3.1 L (3.5-5.1) mmol/L Chloride 92 L (98-107) mmol/L BUN 105 H* (9-20) mg/dL Creatinine 1.90 H (0.66-1.25) mg/dL Glucose 287 H (74-99) mg/dL POC Glucose (mg/dL) 337 H (70-110) mg/dL Hemoglobin A1c (<=6.0) % Calcium 8.3 L (8.4-10.2) mg/dL Magnesium (1.6-2.3) mg/dL Alkaline Phosphatase (38-126) U/L Troponin I (0.000-0.034) ng/mL Total Protein (6.3-8.2) g/dL Albumin (3.5-5.0) g/dL Urine Protein 1+ H (Negative) Urine Glucose (UA) 4+ H (Negative) Urine Blood Trace H (Negative) 11/18/23 11/18/23 11/18/23 Range/Units 00:58 01:39 03:14 WBC (3.8-10.6) k/uL RBC (4.30-5.90) m/uL Hgb (13.0-17.5) gm/dL Hct (39.0-53.0) % Neutrophils # (1.3-7.7) k/uL Lymphocytes # (1.0-4.8) k/uL Sodium (137-145) mmol/L Potassium (3.5-5.1) mmol/L Chloride (98-107) mmol/L BUN (9-20) mg/dL Creatinine (0.66-1.25) mg/dL Glucose (74-99) mg/dL POC Glucose (mg/dL) 341 H (70-110) mg/dL Hemoglobin A1c 14.4 H (<=6.0) % Calcium (8.4-10.2) mg/dL Magnesium (1.6-2.3) mg/dL Alkaline Phosphatase (38-126) U/L Troponin I 0.327 H* (0.000-0.034) ng/mL Total Protein (6.3-8.2) g/dL Albumin (3.5-5.0) g/dL Urine Protein (Negative) Urine Glucose (UA) (Negative) Urine Blood (Negative) 11/18/23 11/18/23 11/18/23 Range/Units 03:14 03:14 03:14 WBC 17.9 H (3.8-10.6) k/uL RBC 3.74 L (4.30-5.90) m/uL Hgb 11.8 L (13.0-17.5) gm/dL Hct 32.9 L (39.0-53.0) % Neutrophils # 16.5 H (1.3-7.7) k/uL Lymphocytes # 0.5 L (1.0-4.8) k/uL Sodium 128 L (137-145) mmol/L Potassium 2.9 L (3.5-5.1) mmol/L Chloride 92 L (98-107) mmol/L BUN 94 H (9-20) mg/dL Creatinine 1.92 H (0.66-1.25) mg/dL Glucose 315 H (74-99) mg/dL POC Glucose (mg/dL) (70-110) mg/dL Hemoglobin A1c (<=6.0) % Calcium 8.1 L (8.4-10.2) mg/dL Magnesium (1.6-2.3) mg/dL Alkaline Phosphatase 159 H (38-126) U/L Troponin I 0.300 H* (0.000-0.034) ng/mL Total Protein 5.4 L (6.3-8.2) g/dL Albumin 2.6 L (3.5-5.0) g/dL Urine Protein (Negative) Urine Glucose (UA) (Negative) Urine Blood (Negative) 11/18/23 11/18/23 11/18/23 Range/Units 07:45 09:16 10:07 WBC (3.8-10.6) k/uL RBC (4.30-5.90) m/uL Hgb (13.0-17.5) gm/dL Hct (39.0-53.0) % Neutrophils # (1.3-7.7) k/uL Lymphocytes # (1.0-4.8) k/uL Sodium 128 L (137-145) mmol/L Potassium (3.5-5.1) mmol/L Chloride 94 L (98-107) mmol/L BUN 86 H (9-20) mg/dL Creatinine 1.73 H (0.66-1.25) mg/dL Glucose 246 H (74-99) mg/dL POC Glucose (mg/dL) 302 H 225 H (70-110) mg/dL Hemoglobin A1c (<=6.0) % Calcium 8.2 L (8.4-10.2) mg/dL Magnesium (1.6-2.3) mg/dL Alkaline Phosphatase (38-126) U/L Troponin I (0.000-0.034) ng/mL Total Protein (6.3-8.2) g/dL Albumin (3.5-5.0) g/dL Urine Protein (Negative) Urine Glucose (UA) (Negative) Urine Blood (Negative) 11/18/23 Range/Units 12:22 WBC (3.8-10.6) k/uL RBC (4.30-5.90) m/uL Hgb (13.0-17.5) gm/dL Hct (39.0-53.0) % Neutrophils # (1.3-7.7) k/uL Lymphocytes # (1.0-4.8) k/uL Sodium (137-145) mmol/L Potassium (3.5-5.1) mmol/L Chloride (98-107) mmol/L BUN (9-20) mg/dL Creatinine (0.66-1.25) mg/dL Glucose (74-99) mg/dL POC Glucose (mg/dL) 212 H (70-110) mg/dL Hemoglobin A1c (<=6.0) % Calcium (8.4-10.2) mg/dL Magnesium (1.6-2.3) mg/dL Alkaline Phosphatase (38-126) U/L Troponin I (0.000-0.034) ng/mL Total Protein (6.3-8.2) g/dL Albumin (3.5-5.0) g/dL Urine Protein (Negative) Urine Glucose (UA) (Negative) Urine Blood (Negative) Microbiology - Last 24 Hours (Table) 11/17/23 19:25 Blood Culture Gram Stain - Preliminary Blood Blood Culture - Preliminary Molecular ID
[2023-11-18] MEDS: CEFEPIME 2 GM in SODIUM CHLORIDE 0.9% 100 ML IVPB SCH (16:17)
[2023-11-18] MEDS: HEPARIN SODIUM,PORCINE 5,000 UNIT/ML 1 ML VIAL SQ SCH (16:18)
[2023-11-18] MEDS: INSULIN DETEMIR (LEVEMIR) 100 UNIT/ML SYR SQ STA (17:10)
[2023-11-18 17:11] LABS: Glucose,Whole Blood 221 mg/dL (70-110)
[2023-11-18 20:55] LABS: Glucose,Whole Blood 259 mg/dL (70-110)
[2023-11-18] MEDS: ATORVASTATIN 40 MG TAB PO SCH (21:36)
--- NOTE | 2023-11-18 22:11 | P.CONS ---
History of Present Illness - Reason for Consult Consult date: 11/18/23 Gram-negative bacteremia Requesting physician: Rohit Pena - Chief Complaint Fall and laceration x 1 day - History of Present Illness Patient is a 73-year-old male with a past medical history significant for hypertension hyperlipidemia heart failure with renal disease, patient was brought into the hospital for evaluation of fall and laceration to the left chest wall. The patient lost his balance at home and felt hitting his left chest wall against entertainment center patient denies hitting his head and no loss of consciousness, patient denies having any headache or URI symptoms no chest pain shortness of occasional cough patient denies any nausea vomiting no abdominal pain and no diarrhea and no urinary symptoms the patient did have a chronic bilateral lower extremity swelling for the patient have compression dressing patient noticed to have increasing swelling. Fluoroscopically and has been complaining of pain to the left leg describing it to be sharp moderate intensity without radiation denies any skin breakdown or any drainage patient on presentation to the hospital was afebrile and no fever have recorded subsequently patient was not tachycardic hypotensive or hypoxic no need for supplemental oxygen patient did have white count 24.8 with a left shift BUN/creatinine has been elevated liver enzymes are normal troponin is elevated urine is negative patient blood cultures came back positive with gram-negative bacilli molecular ID of Serratia marcescens, infectious disease was consulted for further management of antibiotic therapy patient did have a chest x-ray no acute cardiopulmonary disease process Review of Systems Positive point and negatives has been mentioned in the HPI, complete review of systems was performed and all other systems are negative Past Medical History Past Medical History: Heart Failure, Hyperlipidemia, Hypertension, Renal Disease Additional Past Medical History / Comment(s): Cardiomyopathy, Last Myocardial Infarction Date:: 2022 History of Any Multi-Drug Resistant Organisms: None Reported Past Surgical History: No Surgical Hx Reported Past Anesthesia/Blood Transfusion Reactions: Unable to Obtain Additional Past Anesthesia/Blood Transfusion Reaction / Comm: Pt states he has never had surgery. Past Psychological History: No Psychological Hx Reported Smoking Status: Current every day smoker - Past Family History Father Family Medical History: Diabetes Mellitus, Myocardial Infarction ([place]) Additional Family Medical History / Comment(s): Had leg amputation Mother History Unknown: Yes Family Medical History: No Reported History Sister(s) Family Medical History: Diabetes Mellitus Additional Family Medical History / Comment(s): 1 sister had arm amputated due to diabetes Medications and Allergies Home Medications Medication Instructions Recorded Confirmed Type Atorvastatin [Lipitor] 40 mg PO HS #30 tab 08/17/20 11/17/23 Rx Isosorbide Mononitrate ER [Imdur] 60 mg PO DAILY #30 tab.er.24h 08/17/20 11/17/23 Rx Pantoprazole [Protonix] 40 mg PO DAILY 30 Days #30 tab 05/10/23 11/17/23 Rx Acetaminophen Tab [Tylenol] 650 mg PO Q8H PRN 11/17/23 11/17/23 History Calcium Acetate [PhosLo] 667 mg PO TID-W/MEALS 11/17/23 11/17/23 History Magnesium Oxide [Mag-Ox] 400 mg PO DAILY 11/17/23 11/17/23 History Metoprolol Tartrate [Lopressor] 50 mg PO BID-W/MEALS 11/17/23 11/17/23 History Aspirin 81 mg PO DAILY #60 tab 11/23/23 Rx Ciprofloxacin HCl [Cipro] 500 mg PO Q12HR 10 Days #20 tab 11/23/23 Rx Insulin NPH Hum/Reg Insulin Hm 20 unit SQ AC-SUPPER #7 each 11/23/23 Rx [humuLIN 70/30 Kwikpen] Insulin NPH Hum/Reg Insulin Hm 30 unit SQ AC-BRKFST #7 each 11/23/23 Rx [humuLIN 70/30 Kwikpen] Potassium Chloride ER [K-Dur 20] 20 meq PO DAILY #60 tab 11/23/23 Rx Torsemide [Demadex] 40 mg PO DAILY #60 tab 11/23/23 Rx predniSONE [Deltasone] 20 mg PO DAILY #60 tab 11/23/23 Rx Allergies Allergy/AdvReac Type Severity Reaction Status Date / Time No Known Allergies Allergy Verified 11/17/23 19:23 Physical Exam Vitals: Vital Signs Temp Pulse Resp BP Pulse Ox 11/18/23 14:04 97.7 F 68 20 107/79 97 11/18/23 07:48 96 22 123/83 99 11/18/23 06:00 94 18 134/85 98 11/18/23 04:00 87 18 116/81 97 11/17/23 23:00 96 20 129/87 94 L 11/17/23 22:00 97 20 137/92 97 11/17/23 21:00 103 H 20 115/71 97 11/17/23 20:00 96 18 116/72 96 Intake and Output 11/18/23 11/18/23 11/18/23 06:59 14:59 22:59 Output Total 800 Balance -800 Output: Urine 800 GENERAL DESCRIPTION: Elderly male lying in bed, no distress. No tachypnea or accessory muscle of respiration use. HEENT: Shows Pallor , no scleral icterus. Oral mucous membrane is dry. No pharyngeal erythema or thrush NECK: Trachea central, no thyromegaly. LUNGS: Unlabored breathing. Clear to auscultation anteriorly. No wheeze or crackle. HEART: S1, S2, regular rate and rhythm. No loud murmur ABDOMEN: Soft, no tenderness , guarding or rigidity, no organomegaly EXTREMITIES: Diffuse swelling of bilateral extremity he did have more swelling and redness of the left leg which is warm to touch SKIN: No rash, no masses palpable. NEUROLOGICAL: The patient is awake, alert, oriented x3, mood and affect normal. Results CBC & Chem 7: 11/23/23 07:59 11/23/23 07:59 Labs: Abnormal Lab Results - Last 24 Hours (Table) 11/17/23 11/17/23 11/17/23 Range/Units 17:45 17:45 17:45 WBC 24.8 H (3.8-10.6) k/uL RBC 4.25 L (4.30-5.90) m/uL Hgb 12.9 L (13.0-17.5) gm/dL Hct 38.5 L (39.0-53.0) % Neutrophils # 23.2 H (1.3-7.7) k/uL Lymphocytes # 0.6 L (1.0-4.8) k/uL Sodium 123 L (137-145) mmol/L Potassium (3.5-5.1) mmol/L Chloride 79 L (98-107) mmol/L BUN 110 H* (9-20) mg/dL Creatinine 2.01 H (0.66-1.25) mg/dL Glucose 750 H* (74-99) mg/dL POC Glucose (mg/dL) (70-110) mg/dL Hemoglobin A1c (<=6.0) % Calcium (8.4-10.2) mg/dL Magnesium 1.0 L (1.6-2.3) mg/dL Alkaline Phosphatase 189 H (38-126) U/L Troponin I 0.334 H* (0.000-0.034) ng/mL Total Protein 6.2 L (6.3-8.2) g/dL Albumin 3.2 L (3.5-5.0) g/dL Urine Protein (Negative) Urine Glucose (UA) (Negative) Urine Blood (Negative) 11/17/23 11/17/23 11/17/23 Range/Units 19:16 22:37 22:45 WBC (3.8-10.6) k/uL RBC (4.30-5.90) m/uL Hgb (13.0-17.5) gm/dL Hct (39.0-53.0) % Neutrophils # (1.3-7.7) k/uL Lymphocytes # (1.0-4.8) k/uL Sodium 124 L (137-145) mmol/L Potassium 2.7 L* (3.5-5.1) mmol/L Chloride 83 L (98-107) mmol/L BUN 112 H* (9-20) mg/dL Creatinine 2.01 H (0.66-1.25) mg/dL Glucose 648 H* (74-99) mg/dL POC Glucose (mg/dL) 174 H 330 H (70-110) mg/dL Hemoglobin A1c (<=6.0) % Calcium (8.4-10.2) mg/dL Magnesium (1.6-2.3) mg/dL Alkaline Phosphatase (38-126) U/L Troponin I (0.000-0.034) ng/mL Total Protein (6.3-8.2) g/dL Albumin (3.5-5.0) g/dL Urine Protein (Negative) Urine Glucose (UA) (Negative) Urine Blood (Negative) 11/17/23 11/17/23 11/18/23 Range/Units 23:47 23:58 00:00 WBC (3.8-10.6) k/uL RBC (4.30-5.90) m/uL Hgb (13.0-17.5) gm/dL Hct (39.0-53.0) % Neutrophils # (1.3-7.7) k/uL Lymphocytes # (1.0-4.8) k/uL Sodium 128 L (137-145) mmol/L Potassium 3.1 L (3.5-5.1) mmol/L Chloride 92 L (98-107) mmol/L BUN 105 H* (9-20) mg/dL Creatinine 1.90 H (0.66-1.25) mg/dL Glucose 287 H (74-99) mg/dL POC Glucose (mg/dL) 337 H (70-110) mg/dL Hemoglobin A1c (<=6.0) % Calcium 8.3 L (8.4-10.2) mg/dL Magnesium (1.6-2.3) mg/dL Alkaline Phosphatase (38-126) U/L Troponin I (0.000-0.034) ng/mL Total Protein (6.3-8.2) g/dL Albumin (3.5-5.0) g/dL Urine Protein 1+ H (Negative) Urine Glucose (UA) 4+ H (Negative) Urine Blood Trace H (Negative) 11/18/23 11/18/23 11/18/23 Range/Units 00:58 01:39 03:14 WBC (3.8-10.6) k/uL RBC (4.30-5.90) m/uL Hgb (13.0-17.5) gm/dL Hct (39.0-53.0) % Neutrophils # (1.3-7.7) k/uL Lymphocytes # (1.0-4.8) k/uL Sodium (137-145) mmol/L Potassium (3.5-5.1) mmol/L Chloride (98-107) mmol/L BUN (9-20) mg/dL Creatinine (0.66-1.25) mg/dL Glucose (74-99) mg/dL POC Glucose (mg/dL) 341 H (70-110) mg/dL Hemoglobin A1c 14.4 H (<=6.0) % Calcium (8.4-10.2) mg/dL Magnesium (1.6-2.3) mg/dL Alkaline Phosphatase (38-126) U/L Troponin I 0.327 H* (0.000-0.034) ng/mL Total Protein (6.3-8.2) g/dL Albumin (3.5-5.0) g/dL Urine Protein (Negative) Urine Glucose (UA) (Negative) Urine Blood (Negative) 11/18/23 11/18/23 11/18/23 Range/Units 03:14 03:14 03:14 WBC 17.9 H (3.8-10.6) k/uL RBC 3.74 L (4.30-5.90) m/uL Hgb 11.8 L (13.0-17.5) gm/dL Hct 32.9 L (39.0-53.0) % Neutrophils # 16.5 H (1.3-7.7) k/uL Lymphocytes # 0.5 L (1.0-4.8) k/uL Sodium 128 L (137-145) mmol/L Potassium 2.9 L (3.5-5.1) mmol/L Chloride 92 L (98-107) mmol/L BUN 94 H (9-20) mg/dL Creatinine 1.92 H (0.66-1.25) mg/dL Glucose 315 H (74-99) mg/dL POC Glucose (mg/dL) (70-110) mg/dL Hemoglobin A1c (<=6.0) % Calcium 8.1 L (8.4-10.2) mg/dL Magnesium (1.6-2.3) mg/dL Alkaline Phosphatase 159 H (38-126) U/L Troponin I 0.300 H* (0.000-0.034) ng/mL Total Protein 5.4 L (6.3-8.2) g/dL Albumin 2.6 L (3.5-5.0) g/dL Urine Protein (Negative) Urine Glucose (UA) (Negative) Urine Blood (Negative) 11/18/23 11/18/23 11/18/23 Range/Units 07:45 09:16 10:07 WBC (3.8-10.6) k/uL RBC (4.30-5.90) m/uL Hgb (13.0-17.5) gm/dL Hct (39.0-53.0) % Neutrophils # (1.3-7.7) k/uL Lymphocytes # (1.0-4.8) k/uL Sodium 128 L (137-145) mmol/L Potassium (3.5-5.1) mmol/L Chloride 94 L (98-107) mmol/L BUN 86 H (9-20) mg/dL Creatinine 1.73 H (0.66-1.25) mg/dL Glucose 246 H (74-99) mg/dL POC Glucose (mg/dL) 302 H 225 H (70-110) mg/dL Hemoglobin A1c (<=6.0) % Calcium 8.2 L (8.4-10.2) mg/dL Magnesium (1.6-2.3) mg/dL Alkaline Phosphatase (38-126) U/L Troponin I (0.000-0.034) ng/mL Total Protein (6.3-8.2) g/dL Albumin (3.5-5.0) g/dL Urine Protein (Negative) Urine Glucose (UA) (Negative) Urine Blood (Negative) 11/18/23 Range/Units 12:22 WBC (3.8-10.6) k/uL RBC (4.30-5.90) m/uL Hgb (13.0-17.5) gm/dL Hct (39.0-53.0) % Neutrophils # (1.3-7.7) k/uL Lymphocytes # (1.0-4.8) k/uL Sodium (137-145) mmol/L Potassium (3.5-5.1) mmol/L Chloride (98-107) mmol/L BUN (9-20) mg/dL Creatinine (0.66-1.25) mg/dL Glucose (74-99) mg/dL POC Glucose (mg/dL) 212 H (70-110) mg/dL Hemoglobin A1c (<=6.0) % Calcium (8.4-10.2) mg/dL Magnesium (1.6-2.3) mg/dL Alkaline Phosphatase (38-126) U/L Troponin I (0.000-0.034) ng/mL Total Protein (6.3-8.2) g/dL Albumin (3.5-5.0) g/dL Urine Protein (Negative) Urine Glucose (UA) (Negative) Urine Blood (Negative) Microbiology - Last 24 Hours (Table) 11/17/23 19:25 Blood Culture Gram Stain - Preliminary Blood Blood Culture - Preliminary Molecular ID Assessment and Plan (1) Bacteremia Status: Acute Code(s): R78.81 - BACTEREMIA SNOMED Code(s): 9548789 (2) Bacterial infection due to Serratia Status: Acute Code(s): A49.8 - OTHER BACTERIAL INFECTIONS OF UNSPECIFIED SITE SNOMED Code(s): 95120262 (3) Left leg cellulitis Status: Acute Code(s): L03.116 - CELLULITIS OF LEFT LOWER LIMB SNOMED Code(s): 88133184652657367 Plan: 1patient with Serratia marcescens bacteremia in this patient presented to hospital with weakness fall noticed to have extensive cellulitis left lower extremity likely the source of this bacteremia patient chest x-ray report negative for acute infiltrate improvement soft on clinical examination urine has been negative 2-patient with underlying renal insufficiency and high risk of nephrotoxicity 3-cefepime 2 g every 12 for dose adjusted to the kidney function 4-blood culture repeated document clearance of bacteremia Family at the bedside question concern answered We will follow on clinical condition and cultures to further adjust medication if needed Thank you for this consultation we will follow the patient along with you Dictation was produced using [employer] dictation software. please excuse any grammatical, word or spelling errors. Time with Patient: Greater than 30
[2023-11-19 06:01] LABS: Glucose,Whole Blood 117 mg/dL (70-110)
[2023-11-19] MEDS: INSULIN DETEMIR (LEVEMIR) 100 UNIT/ML SYR SQ SCH (06:54)
[2023-11-19] MEDS: ASPIRIN 81 MG PO SCH (09:58)
[2023-11-19 11:46] LABS: Glucose,Whole Blood 247 mg/dL (70-110)
--- NOTE | 2023-11-19 12:28 | P.PN ---
Subjective Progress Note Date: 11/19/23 Reason for Consult (text): Elevated troponin History of present illness: History of present illness: This is a 73-year-old male patient of Dr. Curtis Haddad with past medical history of coronary artery disease status post angioplasty, chronic kidney disease, hypertension, dyslipidemia, mild aortic stenosis. We have been asked to evaluate the patient for elevated troponins. Patient is significantly confused and unable to give any reliable history but he is complaining of abdominal pain. No chest pain. No fever or chills. According to the ER documentation, patient presented to the hospital due to an abrasion on his chest after a fall where he lost his balance at home. He did not hit his head and there was no loss of consciousness apparently. Patient has chronic lower extremity edema and redness. Patient is seen today in the emergency center waiting for a bed on the cardiac stepdown unit. EKG sinus tachycardia with nonspecific ST changes. Chest x-ray: No acute process WBC initially 24.8. Hemoglobin is 11.8. Initial sodium 123 and now 128. Potassium 3.6 after replacement, BUN 86 creatinine 1.73. Glucose 246. Troponins 0.334, 0.327, 0.3. Alkaline phosphatase 159. Urinalysis negative for infection. Acetone negative. Home cardiac medications: Amlodipine 10 mg daily, atorvastatin 40 mg at bedtime, hydralazine 100 mg 3 times daily, Imdur 60 mg daily, magnesium oxide 400 mg daily, metolazone 5 mg every 2 days, Lopressor 50 mg twice daily, potassium chloride 40 mill equivalents twice daily, Demadex 20 mg daily. Echocardiogram performed on 09/27/2023 revealed EF of 55 to 60%. No pericardial effusion. Limited study. Lexiscan Cardiolite stress test performed in the office on 06/12/2023 revealed a negative stress test by EKG criteria. Probably normal myocardial perfusion and function. 11/18 Patient is seen today on the cardiac stepdown unit. He denies having any chest pain, no shortness of breath. He does have some bilateral lower extremity edema. Patient has been maintained on his home cardiac medications. He has also been started on IV antibiotics for bacteremia secondary to cellulitis of the left lower extremity and is followed by infectious disease. Blood pressure 118/72, heart rate 75, pulse ox 98% on room air. No repeat blood work available this morning. Echocardiogram is pending. Physical examination: Gen: This is a 73-year-old male in no acute distress. VS: reviewed, blood pressure 123/83, heart rate 96, pulse ox 99% on room air. HEENT: Head is atraumatic, normocephalic. Pupils equal, round. Sclerae is anicteric. NECK: Supple. No JVD. LUNGS: Clear to auscultation. No wheezes or rhonchi. No intercostal retractions. HEART: Regular rate and rhythm. Systolic ejection murmur at the aortic area.. ABDOMEN: Soft No tenderness. EXTREMITIES: Severe bilateral pedal edema. No calf tenderness. NEUROLOGICAL: Patient is awake, alert. Assessment: Elevated troponin, possibly due to chronic kidney disease, cannot rule out coronary artery disease Metabolic encephalopathy Sepsis and cellulitis of the left lower extremity Hyponatremia Chronic kidney disease Plan: Continue patient's home cardiac medications Obtain 2-D echocardiogram and Doppler study to assess cardiac structure and function Plan for medical treatment of possible coronary artery disease and absence of EKG changes and absence of chest pain. Further recommendations to follow based upon clinical course Nurse practitioner note has been reviewed, I agree with documented findings and plan of care. Patient was seen and examined. Objective - Vital Signs Vital signs: Vital Signs Temp 97.5 F L 11/19/23 08:14 Pulse 75 11/19/23 08:14 Resp 16 11/19/23 08:14 BP 127/78 11/19/23 08:14 Pulse Ox 97 11/19/23 08:14 FiO2 Intake & Output 11/18/23 11/19/23 11/19/23 18:59 06:59 18:59 Intake Total 0 Output Total 475 Balance -475 Weight 124.738 kg Intake: Oral 0 Output: Urine 475 Other: Voiding Method External Catheter # Bowel Movements 1 - Labs CBC & Chem 7: 11/18/23 03:14 11/18/23 09:16 Labs: Abnormal Lab Results - Last 24 Hours (Table) 11/18/23 11/18/23 11/18/23 Range/Units 09:16 10:07 12:22 Sodium 128 L (137-145) mmol/L Chloride 94 L (98-107) mmol/L BUN 86 H (9-20) mg/dL Creatinine 1.73 H (0.66-1.25) mg/dL Glucose 246 H (74-99) mg/dL POC Glucose (mg/dL) 225 H 212 H (70-110) mg/dL Calcium 8.2 L (8.4-10.2) mg/dL 11/18/23 11/18/23 11/19/23 Range/Units 17:09 20:54 06:00 Sodium (137-145) mmol/L Chloride (98-107) mmol/L BUN (9-20) mg/dL Creatinine (0.66-1.25) mg/dL Glucose (74-99) mg/dL POC Glucose (mg/dL) 221 H 259 H 117 H (70-110) mg/dL Calcium (8.4-10.2) mg/dL Microbiology - Last 24 Hours (Table) 11/17/23 19:40 Blood Culture - Preliminary Blood 11/17/23 19:25 Blood Culture Gram Stain - Preliminary Blood Blood Culture - Preliminary Molecular ID
--- NOTE | 2023-11-19 12:28 | P.NPCON ---
History of Present Illness - Reason for Consult chronic renal failure - History of Present Illness Reason for consultation: Chronic kidney disease History of present illness: Patient is a 73-year-old male seen in renal consultation for chronic kidney disease. 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 Patient is maintained on prednisone outpatient. He has received 2 doses of rituximab and is scheduled to receive third dose of rituximab next week. Patient has history of diabetes. Denies history of coronary artery disease. Patient came to the hospital after he sustained a fall. Denies losing consciousness. Patient's blood glucose was 750 on admission. Patient states he has been having a hard time controlling his blood sugars at home. Denies vomiting or diarrhea. Oral intake has been good. Denies fever or chills. Denies gross hematuria. Hemodynamically stable. Blood cultures positive for Serratia marcescens and is currently receiving IV antibiotics. He is being followed by infectious disease. Vital signs stable. No acute distress. Regular rate and rhythm. No audible rhonchi or wheezes. Abdomen nontender. Lower extremity wound noted. No drainage. 4+ edema. Past Medical History Past Medical History: Heart Failure, Hyperlipidemia, Hypertension, Renal Disease Additional Past Medical History / Comment(s): Cardiomyopathy, Last Myocardial Infarction Date:: 2022 History of Any Multi-Drug Resistant Organisms: None Reported Past Surgical History: No Surgical Hx Reported Past Anesthesia/Blood Transfusion Reactions: Unable to Obtain Additional Past Anesthesia/Blood Transfusion Reaction / Comment(s): Pt states he has never had surgery. Past Psychological History: No Psychological Hx Reported Smoking Status: Current every day smoker - Past Family History Father Family Medical History: Diabetes Mellitus, Myocardial Infarction ([place]) Additional Family Medical History / Comment(s): Had leg amputation Mother History Unknown: Yes Family Medical History: No Reported History Sister(s) Family Medical History: Diabetes Mellitus Additional Family Medical History / Comment(s): 1 sister had arm amputated due to diabetes Medications and Allergies Home Medications Medication Instructions Recorded Confirmed Type Atorvastatin [Lipitor] 40 mg PO HS #30 tab 08/17/20 11/17/23 Rx Isosorbide Mononitrate ER [Imdur] 60 mg PO DAILY #30 tab.er.24h 08/17/20 11/17/23 Rx amLODIPine [Norvasc] 10 mg PO DAILY #30 tab 08/17/20 11/17/23 Rx hydrALAZINE HCL [Apresoline] 100 mg PO TID-W/MEALS 05/06/23 11/17/23 History Pantoprazole [Protonix] 40 mg PO DAILY 30 Days #30 tab 05/10/23 11/17/23 Rx metOLazone [Zaroxolyn] 5 mg PO Q2D 09/26/23 11/17/23 History Acetaminophen Tab [Tylenol] 650 mg PO Q8H PRN 11/17/23 11/17/23 History Calcium Acetate [Phoslo] 667 mg PO TID-W/MEALS 11/17/23 11/17/23 History Cefuroxime [Ceftin] 250 mg PO Q12H 11/17/23 11/17/23 History Insulin NPH Hum/Reg Insulin Hm 10 unit SQ AC-SUPPER 11/17/23 11/17/23 History [humuLIN 70/30 Kwikpen] Insulin NPH Hum/Reg Insulin Hm 20 unit SQ AC-BRKFST 11/17/23 11/17/23 History [humuLIN 70/30 Kwikpen] Magnesium Oxide [Mag-Ox] 400 mg PO DAILY 11/17/23 11/17/23 History Metoprolol Tartrate [Lopressor] 50 mg PO BID-W/MEALS 11/17/23 11/17/23 History Potassium Chloride ER [K-Dur 20] 40 meq PO BID 11/17/23 11/17/23 History Torsemide [Demadex] 20 mg PO DAILY 11/17/23 11/17/23 History predniSONE 40 mg PO DAILY 11/17/23 11/17/23 History Allergies Allergy/AdvReac Type Severity Reaction Status Date / Time No Known Allergies Allergy Verified 11/17/23 19:23 Physical Exam Vitals: Vital Signs Temp Pulse Pulse Resp BP BP Pulse Ox 11/19/23 12:08 75 18 118/72 98 11/19/23 08:14 97.5 F L 75 16 127/78 97 11/19/23 04:00 97.6 F 75 14 118/67 97 11/19/23 00:21 97.6 F 72 14 95/56 98 11/18/23 21:12 97.7 F 70 14 126/67 97 11/18/23 17:18 97.9 F 11/18/23 16:00 68 18 108/68 98 05/20/24 14:04 97.7 F 68 20 107/79 97 11/18/23 14:00 65 14 107/79 100 Intake and Output 11/18/23 11/19/23 11/19/23 22:59 06:59 14:59 Intake Total 0 550 Output Total 275 200 Balance -275 -200 550 Intake: IV 10 Invasive Line 1 10 Oral 0 540 Output: Urine 275 200 Other: Voiding Method External Catheter External Catheter External Catheter # Voids 1 # Bowel Movements 1 1 Weight 124.738 kg Results - Lab Results Most recent lab results Calcium 8.2 mg/dL (8.4-10.2) L 11/18/23 09:16 Phosphorus 3.1 mg/dL (2.5-4.5) 11/17/23 23:47 Magnesium 1.9 mg/dL (1.6-2.3) 11/18/23 03:14 11/18/23 03:14 11/18/23 09:16 Assessment and Plan Plan: Assessment: 1. 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 Patient is maintained on prednisone outpatient. He has received 2 doses of rituximab with last dose being October 16, 2023. He is scheduled to receive third dose of rituximab next week. Baseline creatinine near 2. GFR near baseline. UA shows 1+ protein with no red cells. 2. Diabetes mellitus, uncontrolled. Worsened with steroids. 3. Serratia marcescens bacteremia on antibiotics. ID following. 4. Hyponatremia secondary to hypertonicity from hyperglycemia and hypervolemic. 5. Hypokalemia from diuresis. Replaced. Better. 6. Hypertension with chronic kidney disease. Stable. Plan: Resume torsemide 20 mg once daily. 1500 cc fluid restriction. Encouraged oral intake. Decrease prednisone dose to 20 mg once daily due to active infection. Avoid nephrotoxins. Add PPI. Morning labs pending. Thank you for the consultation. I will continue to follow the patient with you during his hospital stay.
[2023-11-19 12:51] LABS: Basophils % (A) 0 %; Eosinophils # (A) 0.1 k/uL (0-0.7); Eosinophils % (A) 1 %; HCT 30.8 % (39.0-53.0); HGB 10.4 gm/dL (13.0-17.5); Lymphocytes # (A) 0.6 k/uL (1.0-4.8); Lymphocytes % (A) 4 %; MCH 30.8 pg (25.0-35.0); MCHC 33.7 g/dL (31.0-37.0); MCV 91.6 fL (80.0-100.0); Monocytes # (A) 0.5 k/uL (0-1.0); Monocytes % (A) 3 %; Neutrophils # (A) 13.6 k/uL (1.3-7.7); Neutrophils % (A) 92 %; Platelet Count 216 k/uL (150-450); RBC 3.36 m/uL (4.30-5.90); RDW 14.3 % (11.5-15.5); WBC 14.8 k/uL (3.8-10.6)
[2023-11-19] MEDS: predniSONE 20 MG TAB PO SCH (13:01)
[2023-11-19] MEDS: TORSEMIDE 20 MG TAB PO SCH (13:01)
[2023-11-19] MEDS: PANTOPRAZOLE 40 MG TABLET PO SCH (13:01)
[2023-11-19 13:18] LABS: African American GFR (CKD) 43 (>60 ml/min/1.73 sqM); Anion Gap 8 mmol/L; Blood Urea Nitrogen 78 mg/dL (9-20); Carbon Dioxide 22 mmol/L (22-30); Chloride 102 mmol/L (98-107); Glucose 202 mg/dL (74-99); Non-African American GFR(CKD) 37 (>60 ml/min/1.73 sqM); Sodium 132 mmol/L (137-145)
--- NOTE | 2023-11-19 13:58 | P.PN ---
Subjective Progress Note Date: 11/19/23 Hospital Course: 73-year-old male with a history of insulin-dependent type 2 diabetes, hyperten suly, CKD stage III, dyslipidemia, CAD status post angioplasty, mild aortic stenosis presenting after a fall at home. Patient has also been slightly encephalopathic. Unclear if he has been taking his medications at home. Chest x-ray in the emergency room was unremarkable with EKG showing sinus tachycardia with PVCs at 106 bpm. Laboratory evaluation revealed a glucose of 750, BUN 110, creatinine 2.01 (at baseline), troponin 0.334, with sodium 123, magnesium 1.0, WBC count 24.8, and hemoglobin 12.9 with an unremarkable UA and a negative acetone. Patient was initially started on insulin drip, but due to persistent hypokalemia, discontinued, now on sliding scale insulin. Cardiology and neph rology consulted. Blood cultures positive for Serratia, likely source is lower extremity cellulitis. Infectious disease consulted. Subjective: Seen and examined at bedside. No acute events overnight. Denies any chest pain, shortness of breath, abdominal pain, nausea, vomiting, urinary or bowel complaints. Pertinent positives and negatives as discussed above, a complete review of systems was performed and all other systems are negative. Vitals Signs Reviewed. General: Nontoxic, no distress, appears at stated age, generally unkempt, morbidly obese Derm: Warm, dry, bilateral lower extremity edema and erythema Head: Atraumatic, normocephalic, symmetric Eyes: EOMI, no lid lag, anicteric sclera Mouth: No lip lesion, mucus membranes moist Cardiovascular: S1S2 reg, no murmur Lungs: CTA bilateral, no rhonchi, no rales, no accessory muscle use Abdominal: Soft, nontender to palpation, no guarding, no appreciable organomegaly Ext: No gross muscle atrophy, no edema, no contractures Neuro: CN II-XI grossly intact, no focal neuro deficits Psych: Alert, oriented, appropriate affect Data Reviewed Today: Pertinent Labs: WBC 14.8, hemoglobin 10.4, sodium 132, creatinine 1.78, blood sugars range between 1 17-2 47 Imaging: No new imaging Assessment and Plan: Patient was severely ill, needs close monitoring, prognosis guarded Active: Sepsis secondary to Serratia bacteremia, likely secondary to left lower extremity cellulitis Acute metabolic encephalopathy, improved Uncontrolled type 2 diabetes Elevated troponin, unlikely to be ACS Chronic kidney disease stage III secondary to crescentic glomerulonephritis Mild hyponatremia Hypokalemia, resolved Hypomagnesemia, resolved History of hypertension History of dyslipidemia History of CAD status post angioplasty -Repeat blood cultures pending -Continued on IV cefepime 2 g every 12 hours, vancomycin discontinued by ID -ID following -Nephrology note reviewed, patient started on prednisone 20 mg daily, torsemide 20 mg daily, IV fluids discontinued -Levemir increased to 15, continue sliding scale insulin, monitor for hypoglycemia -Nephrology consulted by cardiology -Cardiology note reviewed, echocardiogram ordered, continue metoprolol twice daily 50 daily, Imdur 60 daily, atorvastatin 40 daily DVT ppx: Subcu heparin Code status: Full code Anticipated discharge place: Pending clinical course Anticipated discharge time: Pending clinical course Objective - Vital Signs Vital signs: Vital Signs Temp 97.5 F L 11/19/23 08:14 Pulse 75 11/19/23 12:08 Resp 18 11/19/23 12:08 BP 118/72 11/19/23 12:08 Pulse Ox 98 11/19/23 12:08 FiO2 Intake & Output 11/18/23 11/19/23 11/19/23 18:59 06:59 18:59 Intake Total 0 550 Output Total 475 Balance -475 550 Weight 124.738 kg Intake: IV 10 Invasive Line 1 10 Oral 0 540 Output: Urine 475 Other: Voiding Method External Catheter External Catheter # Voids 1 # Bowel Movements 1 1 - Labs CBC & Chem 7: 11/19/23 12:34 11/19/23 12:34 Labs: Abnormal Lab Results - Last 24 Hours (Table) 11/18/23 11/18/23 11/19/23 Range/Units 17:09 20:54 06:00 WBC (3.8-10.6) k/uL RBC (4.30-5.90) m/uL Hgb (13.0-17.5) gm/dL Hct (39.0-53.0) % Neutrophils # (1.3-7.7) k/uL Lymphocytes # (1.0-4.8) k/uL Sodium (137-145) mmol/L BUN (9-20) mg/dL Creatinine (0.66-1.25) mg/dL Glucose (74-99) mg/dL POC Glucose (mg/dL) 221 H 259 H 117 H (70-110) mg/dL Calcium (8.4-10.2) mg/dL 11/19/23 11/19/23 11/19/23 Range/Units 11:44 12:34 12:34 WBC 14.8 H (3.8-10.6) k/uL RBC 3.36 L (4.30-5.90) m/uL Hgb 10.4 L (13.0-17.5) gm/dL Hct 30.8 L (39.0-53.0) % Neutrophils # 13.6 H (1.3-7.7) k/uL Lymphocytes # 0.6 L (1.0-4.8) k/uL Sodium 132 L (137-145) mmol/L BUN 78 H (9-20) mg/dL Creatinine 1.78 H (0.66-1.25) mg/dL Glucose 202 H (74-99) mg/dL POC Glucose (mg/dL) 247 H (70-110) mg/dL Calcium 8.0 L (8.4-10.2) mg/dL Microbiology - Last 24 Hours (Table) 11/17/23 19:25 Blood Culture Gram Stain - Preliminary Blood Blood Culture - Preliminary Serratia marcescens Molecular ID 11/17/23 19:40 Blood Culture - Preliminary Blood
[2023-11-19] MEDS: INSULIN DETEMIR (LEVEMIR) 100 UNIT/ML SYR SQ STA (14:45)
--- NOTE | 2023-11-19 14:46 | CA ---
Transthoracic Echo Report Name: Nadeem Moreno Age: 73 Gender: M : 1950 Exam Date: 11/19/2023 10:16 Exam Location: [facility] Ht (in): 68 Wt (lb): 275 Ordering Physician: Mariajose Patel Attending/Referring Phys: [id number], Jorge Hair Sample Matcher Muna Palma RDCS Procedure CPT: Indications: cardiac contusion Cardiac Hx: Technical Quality: Very technically difficult study Contrast 1: Definity Total Dose (mL): 2 Contrast 2: Total Dose (mL): MEASUREMENTS (Male / Female) Normal Values 2D ECHO LV Diastolic Diameter PLAX 4.4 cm 4.2 - 5.9 / 3.9 - 5.3 cm LV Systolic Diameter PLAX 2.7 cm IVS Diastolic Thickness 1.0 cm 0.6 - 1.0 / 0.6 - 0.9 cm LVPW Diastolic Thickness 1.2 cm 0.6 - 1.0 / 0.6 - 0.9 cm LV Relative Wall Thickness 0.5 LVOT Diameter 2.1 cm LV Diastolic Volume MOD BP 87.0 cm??? 67 - 155 / 56 - 104 cm??? LV Systolic Volume MOD BP 39.7 cm??? 22 - 58 / 19 - 49 cm??? LV Ejection Fraction MOD BP 54.3 % >= 55 % LV Cardiac Index MOD BP 1621.7 cm???/min???m??? LV Diastolic Volume MOD 4C 101.9 cm??? LV Systolic Volume MOD 4C 45.7 cm??? LV Ejection Fraction MOD 4C 55.2 % LV Cardiac Index MOD 4C 1929.1 cm???/min???m??? LV Diastolic Length 4C 9.0 cm LV Systolic Length 4C 7.9 cm LV Diastolic Volume MOD 2C 71.0 cm??? LV Systolic Volume MOD 2C 31.5 cm??? LV Ejection Fraction MOD 2C 55.6 % LV Cardiac Index MOD 2C 1352.7 cm???/min???m??? LV Diastolic Length 2C 8.5 cm LV Systolic Length 2C 7.2 cm Ascending Aorta Diameter 3.4 cm DOPPLER AV Peak Velocity 231.8 cm/s AV Peak Gradient 21.5 mmHg AV Mean Velocity 155.2 cm/s AV Mean Gradient 11.2 mmHg AV Velocity Time Integral 42.5 cm LVOT Peak Velocity 117.1 cm/s LVOT Peak Gradient 5.5 mmHg LVOT Velocity Time Integral 24.9 cm LVOT Stroke Volume 82.4 cm??? LVOT Stroke Volume Index 35.2 ml/m??? LVOT Cardiac Index 2827.7 cm???/min???m??? AV Area Cont Eq vti 1.9 cm??? AV Area Cont Eq pk 1.7 cm??? MV Area PHT 3.2 cm??? Mitral E Point Velocity 64.6 cm/s Mitral A Point Velocity 89.2 cm/s Mitral E to A Ratio 0.7 MV Deceleration Time 239.2 ms PV Peak Velocity 97.0 cm/s PV Peak Gradient 3.8 mmHg FINDINGS Left Ventricle Left ventricular ejection fraction is estimated at 50-55 %. Left ventricular cavity size normal. Left ventricular wall thickness normal. No obvious regional wall motion abnormalities. Right Ventricle Right ventricle not well visualized. Right Atrium Normal right atrial size. Left Atrium Moderate left atrial dilatation by visual. Mitral Valve Mitral valve thickened. Mitral annular calcification. No evidence for mitral valve prolapse. No mitral stenosis. Trace mitral regurgitation. Aortic Valve Aortic valve not well visualized. Mild aortic stenosis with a peak gradient of 22mmHg and a mean gradient of 11mmHg. Unable to estimate aortic regurgitation. Tricuspid Valve Tricuspid valve not well visualized. No tricuspid stenosis, regurgitation or prolapse. Pulmonic Valve Pulmonic valve not well visualized. No pulmonic stenosis. No pulmonic regurgitation. Pericardium No pericardial effusion. Aorta Normal size aortic root and proximal ascending aorta. CONCLUSIONS Left ventricular ejection fraction 50-55% Moderately dilated left atrium Trace mitral regurgitation Mild aortic stenosis No pericardial effusion Previewed by: Dr. Aris Corbin DO (Electronically Signed) Final Date: 19 Nov 2023 14:45
[2023-11-19 16:17] VITALS: BMI 41.8
--- NOTE | 2023-11-19 16:30 | P.PN ---
Subjective Progress Note Date: 11/19/23 Principal diagnosis: Reason for follow-up is left lower extremity cellulitis and Serratia bacteremia Patient is a 73-year-old male with a past medical history significant for hypertension hyperlipidemia heart failure with renal disease, patient was brought into the hospital for evaluation of fall and laceration to the left chest wall, patient also have a chronic swelling to the left lower extremity more swelling to the left leg noticed to have Serratia marcescens bacteremia prompting this consultation. On today's evaluation that is 11/19/2023, the patient continues to be afebrile, the patient is on room air and breathing comfortably, the Pt denies having any chest pain or cough, the patient denies having any abdominal pain no vomiting or any diarrhea patient denies pain to the left lower extremity mention feeling slightly better. Patient white count is down to 14.8, creatinine is 1.78 Objective - Vital Signs Vital signs: Vital Signs Temp 97.5 F L 11/19/23 08:14 Pulse 75 11/19/23 12:08 Resp 18 11/19/23 12:08 BP 118/72 11/19/23 12:08 Pulse Ox 98 11/19/23 12:08 FiO2 Intake & Output 11/18/23 11/19/23 11/19/23 18:59 06:59 18:59 Intake Total 0 550 Output Total 475 Balance -475 550 Weight 124.738 kg Intake: IV 10 Invasive Line 1 10 Oral 0 540 Output: Urine 475 Other: Voiding Method External Catheter External Catheter # Voids 1 # Bowel Movements 1 1 - Exam GENERAL DESCRIPTION: An elderly male lying in bed in no distress RESPIRATORY SYSTEM: Unlabored breathing , decreased breath sounds at bases HEART: S1 S2 regular rate and rhythm , ABDOMEN: Soft , no tenderness EXTREMITIES: Left leg redness slightly decreased - Labs CBC & Chem 7: 11/19/23 12:34 11/19/23 12:34 Labs: Abnormal Lab Results - Last 24 Hours (Table) 11/18/23 11/18/23 11/19/23 Range/Units 17:09 20:54 06:00 WBC (3.8-10.6) k/uL RBC (4.30-5.90) m/uL Hgb (13.0-17.5) gm/dL Hct (39.0-53.0) % Neutrophils # (1.3-7.7) k/uL Lymphocytes # (1.0-4.8) k/uL Sodium (137-145) mmol/L BUN (9-20) mg/dL Creatinine (0.66-1.25) mg/dL Glucose (74-99) mg/dL POC Glucose (mg/dL) 221 H 259 H 117 H (70-110) mg/dL Calcium (8.4-10.2) mg/dL 11/19/23 11/19/23 11/19/23 Range/Units 11:44 12:34 12:34 WBC 14.8 H (3.8-10.6) k/uL RBC 3.36 L (4.30-5.90) m/uL Hgb 10.4 L (13.0-17.5) gm/dL Hct 30.8 L (39.0-53.0) % Neutrophils # 13.6 H (1.3-7.7) k/uL Lymphocytes # 0.6 L (1.0-4.8) k/uL Sodium 132 L (137-145) mmol/L BUN 78 H (9-20) mg/dL Creatinine 1.78 H (0.66-1.25) mg/dL Glucose 202 H (74-99) mg/dL POC Glucose (mg/dL) 247 H (70-110) mg/dL Calcium 8.0 L (8.4-10.2) mg/dL Microbiology - Last 24 Hours (Table) 11/17/23 19:25 Blood Culture Gram Stain - Preliminary Blood Blood Culture - Preliminary Serratia marcescens Molecular ID 11/17/23 19:40 Blood Culture - Preliminary Blood Assessment and Plan (1) Left leg cellulitis Current Visit: Yes Status: Acute Code(s): L03.116 - CELLULITIS OF LEFT LOWER LIMB SNOMED Code(s): 26726715982599536 (2) Bacterial infection due to Serratia Current Visit: Yes Status: Acute Code(s): A49.8 - OTHER BACTERIAL INFECTIONS OF UNSPECIFIED SITE SNOMED Code(s): 91875472 (3) Bacteremia Current Visit: Yes Status: Acute Code(s): R78.81 - BACTEREMIA SNOMED Code(s): 7244132 Plan: 1patient with Serratia marcescens bacteremia in this patient presented to hospital with weakness fall noticed to have extensive cellulitis left lower extremity likely the source of this bacteremia patient chest x-ray report negative for acute infiltrate improvement soft on clinical examination urine has been negative 2-patient with underlying renal insufficiency and high risk of nephrotoxicity 3--blood culture repeated document clearance of bacteremia 4patient to continue cefepime while waiting for sensitivity on Serratia to be finalized Dictation was produced using [employer] dictation software. please excuse any grammatical, word or spelling errors. Time with Patient: Less than 30
[2023-11-19 16:34] LABS: Glucose,Whole Blood 191 mg/dL (70-110)
[2023-11-19 20:01] LABS: Glucose,Whole Blood 290 mg/dL (70-110)
[2023-11-20] MEDS ORDERED: ZINC OXIDE PASTE (Z-GUARD) 1 APPLIC TOPICAL PRN (03:35)
[2023-11-20 05:14] LABS: Glucose,Whole Blood 248 mg/dL (70-110)
[2023-11-20] MEDS: INSULIN DETEMIR (LEVEMIR) 100 UNIT/ML SYR SQ SCH (06:21)
--- NOTE | 2023-11-20 11:20 | P.PN ---
Subjective Patient is seen in follow-up for chronic kidney disease. Renal function stable as of yesterday. Has been voiding. Denies chest pain or shortness of breath. No vomiting or diarrhea. Vital signs are stable. General: No acute distress. HEENT: Head exam is unremarkable. LUNGS: No audible rhonchi or wheezes. HEART: Rate and Rhythm are regular. ABDOMEN: Nontender. EXTREMITITES: 2+ edema. Objective - Vital Signs Vital signs: Vital Signs Temp 97.6 F 11/20/23 03:32 Pulse 75 11/20/23 07:48 Resp 16 11/20/23 07:48 BP 151/90 11/20/23 07:48 Pulse Ox 98 11/20/23 07:48 FiO2 Intake & Output 11/19/23 11/20/23 11/20/23 18:59 06:59 18:59 Intake Total 918 480 356 Output Total 950 Balance -32 480 356 Weight 124.738 kg 91.9 kg Intake: IV 20 Invasive Line 1 20 Oral 898 480 356 Output: Urine 950 Other: Voiding Method External Catheter Urinal Diaper # Voids 1 2 # Bowel Movements 1 1 - Labs CBC & Chem 7: 11/19/23 12:34 11/19/23 12:34 Labs: Abnormal Lab Results - Last 24 Hours (Table) 11/19/23 11/19/23 11/19/23 Range/Units 11:44 12:34 12:34 WBC 14.8 H (3.8-10.6) k/uL RBC 3.36 L (4.30-5.90) m/uL Hgb 10.4 L (13.0-17.5) gm/dL Hct 30.8 L (39.0-53.0) % Neutrophils # 13.6 H (1.3-7.7) k/uL Lymphocytes # 0.6 L (1.0-4.8) k/uL Sodium 132 L (137-145) mmol/L BUN 78 H (9-20) mg/dL Creatinine 1.78 H (0.66-1.25) mg/dL Glucose 202 H (74-99) mg/dL POC Glucose (mg/dL) 247 H (70-110) mg/dL Calcium 8.0 L (8.4-10.2) mg/dL 11/19/23 11/19/2311/19/24 Range/Units 16:33 19:57 05:13 WBC (3.8-10.6) k/uL RBC (4.30-5.90) m/uL Hgb (13.0-17.5) gm/dL Hct (39.0-53.0) % Neutrophils # (1.3-7.7) k/uL Lymphocytes # (1.0-4.8) k/uL Sodium (137-145) mmol/L BUN (9-20) mg/dL Creatinine (0.66-1.25) mg/dL Glucose (74-99) mg/dL POC Glucose (mg/dL) 191 H 290 H 248 H (70-110) mg/dL Calcium (8.4-10.2) mg/dL Microbiology - Last 24 Hours (Table) 11/17/23 19:25 Blood Culture Gram Stain - Final Blood Blood Culture - Final Serratia marcescens Molecular ID 11/17/23 19:40 Blood Culture - Preliminary Blood 11/18/23 15:50 Blood Culture - Preliminary Blood 11/18/23 16:05 Blood Culture - Preliminary Blood Assessment and Plan Plan: Assessment: 1. 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 Patient is maintained on prednisone outpatient. He has received 2 doses of rituximab with last dose being October 16, 2023. He is scheduled to receive third dose of rituximab next week. Baseline creatinine n ear 2. GFR near baseline. UA shows 1+ protein with no red cells. 2. Diabetes mellitus, uncontrolled. Worsened with steroids. 3. Serratia marcescens bacteremia on antibiotics. ID following. 4. Hyponatremia secondary to hypertonicity from hyperglycemia and hypervolemic. Improved. 5. Hypokalemia from diuresis. Replaced. Better. 6. Hypertension with chronic kidney disease. Stable. 7. Volume overload. Plan: Maintain torsemide. 40 mg IV Lasix once this afternoon. 1500 cc fluid restriction. Encouraged oral intake. Maintain prednisone and PPI. Avoid nephrotoxins. Morning labs pending.
[2023-11-20 11:56] LABS: Basophils % (A) 0 %; Eosinophils # (A) 0.1 k/uL (0-0.7); Eosinophils % (A) 1 %; HCT 34.2 % (39.0-53.0); HGB 11.5 gm/dL (13.0-17.5); Lymphocytes # (A) 0.7 k/uL (1.0-4.8); Lymphocytes % (A) 4 %; MCH 30.3 pg (25.0-35.0); MCHC 33.7 g/dL (31.0-37.0); MCV 90.1 fL (80.0-100.0); Mean Platelet Volume 9.2; Monocytes # (A) 0.6 k/uL (0-1.0); Monocytes % (A) 4 %; Neutrophils # (A) 14.5 k/uL (1.3-7.7); Neutrophils % (A) 90 %; Platelet Count 282 k/uL (150-450); RDW 14.4 % (11.5-15.5); WBC 16.2 k/uL (3.8-10.6)
[2023-11-20 12:06] LABS: African American GFR (CKD) 33 (>60 ml/min/1.73 sqM); Anion Gap 8 mmol/L; Blood Urea Nitrogen 78 mg/dL (9-20); Calcium 8.7 mg/dL (8.4-10.2); Carbon Dioxide 25 mmol/L (22-30); Chloride 99 mmol/L (98-107); Glucose 245 mg/dL (74-99); Magnesium 1.8 mg/dL (1.6-2.3); Non-African American GFR(CKD) 28 (>60 ml/min/1.73 sqM); Potassium 5.3 mmol/L (3.5-5.1); Sodium 132 mmol/L (137-145)
[2023-11-20 12:07] LABS: Glucose,Whole Blood 286 mg/dL (70-110)
--- NOTE | 2023-11-20 14:23 | P.PN ---
Subjective Progress Note Date: 11/20/23 Reason for Consult (text): Elevated troponin History of present illness: This is a 73-year-old male patient of Dr. Curtis Haddad with past medical history of coronary artery disease status post angioplasty, chronic kidney disease, hypertension, dyslipidemia, mild aortic stenosis. We have been asked to evaluate the patient for elevated troponins. Patient is significantly confused and unable to give any reliable history but he is complaining of abdominal pain. No chest pain. No fever or chills. According to the ER documentation, patient presented to the hospital due to an abrasion on his chest after a fall where he lost his balance at home. He did not hit his head and there was no loss of consciousness apparently. Patient has chronic lower extremity edema and redness. Patient is seen today in the emergency center waiting for a bed on the cardiac stepdown unit. EKG sinus tachycardia with nonspecific ST changes. Chest x-ray: No acute process WBC initially 24.8. Hemoglobin is 11.8. Initial sodium 123 and now 128. Potassium 3.6 after replacement, BUN 86 creatinine 1.73. Glucose 246. Troponins 0.334, 0.327, 0.3. Alkaline phosphatase 159. Urinalysis negative for infection. Acetone negative. Home cardiac medications: Amlodipine 10 mg daily, atorvastatin 40 mg at bedtime, hydralazine 100 mg 3 times daily, Imdur 60 mg daily, magnesium oxide 400 mg daily, metolazone 5 mg every 2 days, Lopressor 50 mg twice daily, potassium chloride 40 mill equivalents twice daily, Demadex 20 mg daily. Echocardiogram performed on 09/27/2023 revealed EF of 55 to 60%. No pericardial effusion. Limited study. Lexiscan Cardiolite stress test performed in the office on 06/12/2023 revealed a negative stress test by EKG criteria. Probably normal myocardial perfusion and function. 11/18 Patient is seen today on the cardiac stepdown unit. He denies having any chest pain, no shortness of breath. He does have some bilateral lower extremity edema. Patient has been maintained on his home cardiac medications. He has also been started on IV antibiotics for bacteremia secondary to cellulitis of the left lower extremity and is followed by infectious disease. Blood pressure 118/72, heart rate 75, pulse ox 98% on room air. No repeat blood work available this morning. Echocardiogram is pending. 5/22 Echocardiogram reveals EF of 50 to 55%. Moderately dilated left atrium. Trace mitral regurgitation. Mild aortic stenosis. No pericardial effusion. Blood pressure 151/84, heart rate 75, pulse ox 98% on room air. Repeat blood work reveals hemoglobin 11.5. BUN 78 creatinine 2.22. Sodium 132 and potassium 5.3. Patient denies complaints of chest pain. Physical examination: Gen: This is a 73-year-old male in no acute distress. VS: reviewed HEENT: Head is atraumatic, normocephalic. Pupils equal, round. Sclerae is anicteric. NECK: Supple. No JVD. LUNGS: Clear to auscultation. No wheezes or rhonchi. No intercostal retractions. HEART: Regular rate and rhythm. Systolic ejection murmur at the aortic area.. ABDOMEN: Soft No tenderness. EXTREMITIES: Severe bilateral pedal edema. No calf tenderness. NEUROLOGICAL: Patient is awake, alert. Assessment: Elevated troponin, possibly due to chronic kidney disease, cannot rule out co ronary artery disease Metabolic encephalopathy Sepsis and cellulitis of the left lower extremity Hyponatremia Chronic kidney disease Plan: Continue patient's home cardiac medications Plan for medical treatment of possible coronary artery disease and absence of EKG changes and absence of chest pain. Cardiology will sign off this case and follow on an as-needed basis. Please reconsult for any new concerns. Patient may follow-up in the office in [address] Curtis Haddad. Nurse practitioner note has been reviewed, I agree with documented findings and plan of care. Patient was seen and examined. Objective - Vital Signs Vital signs: Vital Signs Temp 97.6 F 11/20/23 03:32 Pulse 75 11/20/23 07:48 Resp 16 11/20/23 07:48 BP 151/90 11/20/23 07:48 Pulse Ox 98 11/20/23 07:48 FiO2 Intake & Output 11/19/23 11/20/23 11/20/23 18:59 06:59 18:59 Intake Total 918 480 356 Output Total 950 Balance -32 480 356 Weight 124.738 kg 91.9 kg Intake: IV 20 Invasive Line 1 20 Oral 898 480 356 Output: Urine 950 Other: Voiding Method External Catheter Urinal Diaper # Voids 1 2 # Bowel Movements 1 1 - Labs CBC & Chem 7: 11/20/23 11:07 11/20/23 11:07 Labs: Abnormal Lab Results - Last 24 Hours (Table) 11/19/23 11/19/23 11/19/23 Range/Units 11:44 12:34 12:34 WBC 14.8 H (3.8-10.6) k/uL RBC 3.36 L (4.30-5.90) m/uL Hgb 10.4 L (13.0-17.5) gm/dL Hct 30.8 L (39.0-53.0) % Neutrophils # 13.6 H (1.3-7.7) k/uL Lymphocytes # 0.6 L (1.0-4.8) k/uL Sodium 132 L (137-145) mmol/L BUN 78 H (9-20) mg/dL Creatinine 1.78 H (0.66-1.25) mg/dL Glucose 202 H (74-99) mg/dL POC Glucose (mg/dL) 247 H (70-110) mg/dL Calcium 8.0 L (8.4-10.2) mg/dL 11/19/23 11/19/23 11/20/23 Range/Units 16:33 19:57 05:13 WBC (3.8-10.6) k/uL RBC (4.30-5.90) m/uL Hgb (13.0-17.5) gm/dL Hct (39.0-53.0) % Neutrophils # (1.3-7.7) k/uL Lymphocytes # (1.0-4.8) k/uL Sodium (137-145) mmol/L BUN (9-20) mg/dL Creatinine (0.66-1.25) mg/dL Glucose (74-99) mg/dL POC Glucose (mg/dL) 191 H 290 H 248 H (70-110) mg/dL Calcium (8.4-10.2) mg/dL Microbiology - Last 24 Hours (Table) 11/17/23 19:25 Blood Culture Gram Stain - Final Blood Blood Culture - Final Serratia marcescens Molecular ID 11/17/23 19:40 Blood Culture - Preliminary Blood 11/18/23 15:50 Blood Culture - Preliminary Blood 11/18/23 16:05 Blood Culture - Preliminary Blood
--- NOTE | 2023-11-20 14:28 | P.PN ---
Subjective Progress Note Date: 11/20/23 Hospital Course: 73-year-old male with a history of insulin-dependent type 2 diabetes, hyperten suly, CKD stage III secondary to crestenteric glomerulonephritis, dyslipidemia, CAD status post angioplasty, mild aortic stenosis presenting after a fall at home. Patient has also been slightly encephalopathic. Unclear if he has been taking his medications at home. Chest x-ray in the emergency room was unremarkable with EKG showing sinus tachycardia with PVCs at 106 bpm. Laboratory evaluation revealed a glucose of 750, BUN 110, creatinine 2.01 (at baseline), troponin 0.334, with sodium 123, magnesium 1.0, WBC count 24.8, and hemoglobin 12.9 with an unremarkable UA and a negative acetone. Patient was initially started on insulin drip, but due to persistent hypokalemia, discontinued, now on sliding scale insulin. Cardiology and nephrology consulted. Blood cultures positive for Serratia, likely source is lower extremity cellulitis. Infectious disease consulted. Currently on IV antib iotics. Subjective: Seen and examined at bedside. No acute events overnight. Denies any chest pa in, shortness of breath, abdominal pain, nausea, vomiting, urinary or bowel complaints. Pertinent positives and negatives as discussed above, a complete review of systems was performed and all other systems are negative. Vitals Signs Reviewed. General: Nontoxic, no distress, appears at stated age, morbidly obese Derm: Warm, dry, bilateral lower extremity edema and erythema Head: Atraumatic, normocephalic, symmetric Eyes: EOMI, no lid lag, anicteric sclera Mouth: No lip lesion, mucus membranes moist Cardiovascular: S1S2 reg, no murmur Lungs: CTA bilateral, no rhonchi, no rales, no accessory muscle use Abdominal: Soft, nontender to palpation, no guarding, no appreciable organomegaly Ext: No gross muscle atrophy, no edema, no contractures Neuro: CN II-XI grossly intact, no focal neuro deficits Psych: Alert, oriented, appropriate affect Data Reviewed Today: Pertinent Labs: WBC 16.2, hemoglobin 11.5, potassium 5.3, creatinine 2.22, blood glucose range between 2 45-2 86, magnesium 1.8 Imaging: Echocardiogram report reviewed, shows LVEF 50 to 55% Assessment and Plan: Patient was severely ill, needs close monitoring, prognosis guarded Active: Sepsis secondary to Serratia bacteremia, likely secondary to left lower extremity cellulitis Acute metabolic encephalopathy, improved Uncontrolled type 2 diabetes Elevated troponin, unlikely to be ACS Chronic kidney disease stage III secondary to crescentic glomerulonephritis Mild hyponatremia, resolved Hypokalemia Hypokalemia, resolved Hypomagnesemia, resolved History of hypertension History of dyslipidemia History of CAD status post angioplasty -Repeat blood cultures no growth to date -Continued on IV cefepime 2 g every 12 hours, discussed management with ID, continue IV antibiotics for 1 more day, discharged tomorrow on ciprofloxacin for 10 days. -Nephrology note reviewed, continue on prednisone 20 mg daily, torsemide 20 mg daily, 1 dose of 40 IV Lasix given today -Levemir increased to 25 units, continue sliding scale insulin, monitor for hypoglycemia -Cardiology note reviewed, continue metoprolol twice daily 50 daily, Imdur 60 daily, atorvastatin 40 daily, outpatient follow-up in 4 weeks, signed off DVT ppx: Subcu heparin Code status: Full code Anticipated discharge place: Pending clinical course Anticipated discharge time: Pending clinical course Objective - Vital Signs Vital signs: Vital Signs Temp 97.6 F 11/20/23 03:32 Pulse 75 11/20/23 12:33 Resp 16 11/20/23 12:33 BP 151/84 11/20/23 12:33 Pulse Ox 98 11/20/23 12:33 FiO2 Intake & Output 11/19/23 11/20/23 11/20/23 18:59 06:59 18:59 Intake Total 918 480 712 Output Total 950 Balance -32 480 712 Weight 124.738 kg 91.9 kg Intake: IV 20 Invasive Line 1 20 Oral 898 480 712 Output: Urine 950 Other: Voiding Method External Catheter Urinal Diaper # Voids 1 2 3 # Bowel Movements 1 1 1 - Labs CBC & Chem 7: 11/20/23 11:07 11/20/23 11:07 Labs: Abnormal Lab Results - Last 24 Hours (Table) 11/19/23 11/19/23 11/20/23 Range/Units 16:33 19:57 05:13 WBC (3.8-10.6) k/uL RBC (4.30-5.90) m/uL Hgb (13.0-17.5) gm/dL Hct (39.0-53.0) % Neutrophils # (1.3-7.7) k/uL Lymphocytes # (1.0-4.8) k/uL Sodium (137-145) mmol/L Potassium (3.5-5.1) mmol/L BUN (9-20) mg/dL Creatinine (0.66-1.25) mg/dL Glucose (74-99) mg/dL POC Glucose (mg/dL) 191 H 290 H 248 H (70-110) mg/dL 11/20/23 11/20/23 11/20/23 Range/Units 11:07 11:07 12:03 WBC 16.2 H (3.8-10.6) k/uL RBC 3.80 L (4.30-5.90) m/uL Hgb 11.5 L (13.0-17.5) gm/dL Hct 34.2 L (39.0-53.0) % Neutrophils # 14.5 H (1.3-7.7) k/uL Lymphocytes # 0.7 L (1.0-4.8) k/uL Sodium 132 L (137-145) mmol/L Potassium 5.3 H (3.5-5.1) mmol/L BUN 78 H (9-20) mg/dL Creatinine 2.22 H (0.66-1.25) mg/dL Glucose 245 H (74-99) mg/dL POC Glucose (mg/dL) 286 H (70-110) mg/dL Microbiology - Last 24 Hours (Table) 11/17/23 19:25 Blood Culture Gram Stain - Final Blood Blood Culture - Final Serratia marcescens Molecular ID 11/17/23 19:40 Blood Culture - Preliminary Blood 11/18/23 15:50 Blood Culture - Preliminary Blood 11/18/23 16:05 Blood Culture - Preliminary Blood
[2023-11-20] MEDS: FUROSEMIDE 10 MG/ML 4 ML VIAL IV ONE (15:31)
[2023-11-20] MEDS: INSULIN DETEMIR (LEVEMIR) 100 UNIT/ML SYR SQ STA (15:32)
[2023-11-20 17:03] LABS: Glucose,Whole Blood 178 mg/dL (70-110)
[2023-11-20 20:20] LABS: Glucose,Whole Blood 243 mg/dL (70-110)
[2023-11-21 06:06] LABS: Glucose,Whole Blood 359 mg/dL (70-110)
[2023-11-21] MEDS: INSULIN DETEMIR (LEVEMIR) 100 UNIT/ML SYR SQ SCH (06:38)
[2023-11-21 11:28] LABS: Glucose,Whole Blood 158 mg/dL (70-110)
[2023-11-21] MEDS: INSULIN DETEMIR (LEVEMIR) 100 UNIT/ML SYR SQ STA (11:55)
[2023-11-21] MEDS: INSULIN ASPART (NovoLOG) 100 UNIT/ML VIAL SQ SCH (11:56)
[2023-11-21 12:02] LABS: African American GFR (CKD) 32 (>60 ml/min/1.73 sqM); Anion Gap 8 mmol/L; Blood Urea Nitrogen 82 mg/dL (9-20); Calcium 8.5 mg/dL (8.4-10.2); Carbon Dioxide 26 mmol/L (22-30); Chloride 100 mmol/L (98-107); Glucose 100 mg/dL (74-99); Magnesium 1.5 mg/dL (1.6-2.3); Non-African American GFR(CKD) 27 (>60 ml/min/1.73 sqM); Potassium 3.7 mmol/L (3.5-5.1); Sodium 134 mmol/L (137-145)
[2023-11-21 12:13] LABS: Basophils % (A) 0 %; Eosinophils # (A) 0.1 k/uL (0-0.7); Eosinophils % (A) 1 %; HGB 10.5 gm/dL (13.0-17.5); Lymphocytes # (A) 0.8 k/uL (1.0-4.8); Lymphocytes % (A) 6 %; MCHC 36.2 g/dL (31.0-37.0); MCV 88.4 fL (80.0-100.0); Mean Platelet Volume 9.4; Monocytes # (A) 0.6 k/uL (0-1.0); Monocytes % (A) 5 %; Neutrophils # (A) 11.8 k/uL (1.3-7.7); Neutrophils % (A) 88 %; Platelet Count 239 k/uL (150-450); RBC 3.28 m/uL (4.30-5.90); RDW 14.2 % (11.5-15.5); WBC 13.5 k/uL (3.8-10.6)
[2023-11-21] MEDS ORDERED: Magnesium Replacement Protocol 1 EACH MISC MISCELLANE PRN (12:13)
--- NOTE | 2023-11-21 12:41 | P.PN ---
Subjective Patient is seen in follow-up for chronic kidney disease. Renal function fairly stable. Has been voiding. Denies chest pain or shortness of breath. No vomiting or diarrhea. Vital signs are stable. General: No acute distress. HEENT: Head exam is unremarkable. LUNGS: No audible rhonchi or wheezes. HEART: Rate and Rhythm are regular. ABDOMEN: Nontender. EXTREMITITES: 2+ edema. Objective - Vital Signs Vital signs: Vital Signs Temp 98.2 F 11/21/23 11:59 Pulse 77 11/21/23 11:59 Resp 16 11/21/23 11:59 BP 94/60 11/21/23 11:59 Pulse Ox 99 11/21/23 11:59 FiO2 Intake & Output 11/20/23 11/21/23 11/21/23 18:59 06:59 18:59 Intake Total 1068 240 Output Total 400 Balance 1068 -400 240 Weight 91.7 kg Intake: Oral 1068 240 Output: Urine 400 Other: Voiding Method Diaper External Catheter External Catheter # Voids 3 3 # Bowel Movements 1 - Labs CBC & Chem 7: 11/21/23 09:36 11/21/23 09:36 Labs: Abnormal Lab Results - Last 24 Hours (Table) 11/20/23 11/20/23 11/21/23 Range/Units 17:02 20:18 06:04 WBC (3.8-10.6) k/uL RBC (4.30-5.90) m/uL Hgb (13.0-17.5) gm/dL Hct (39.0-53.0) % Neutrophils # (1.3-7.7) k/uL Lymphocytes # (1.0-4.8) k/uL Sodium (137-145) mmol/L BUN (9-20) mg/dL Creatinine (0.66-1.25) mg/dL Glucose (74-99) mg/dL POC Glucose (mg/dL) 178 H 243 H 359 H (70-110) mg/dL Magnesium (1.6-2.3) mg/dL 11/21/23 11/21/23 11/21/23 Range/Units 09:36 09:36 11:26 WBC 13.5 H (3.8-10.6) k/uL RBC 3.28 L (4.30-5.90) m/uL Hgb 10.5 L (13.0-17.5) gm/dL Hct 29.0 L (39.0-53.0) % Neutrophils # 11.8 H (1.3-7.7) k/uL Lymphocytes # 0.8 L (1.0-4.8) k/uL Sodium 134 L (137-145) mmol/L BUN 82 H (9-20) mg/dL Creatinine 2.28 H (0.66-1.25) mg/dL Glucose 100 H (74-99) mg/dL POC Glucose (mg/dL) 158 H (70-110) mg/dL Magnesium 1.5 L (1.6-2.3) mg/dL Microbiology - Last 24 Hours (Table) 11/17/23 19:40 Blood Culture - Preliminary Blood 11/18/23 15:50 Blood Culture - Preliminary Blood 11/18/23 16:05 Blood Culture - Preliminary Blood 11/17/23 19:25 Blood Culture Gram Stain - Final Blood Blood Culture - Final Serratia marcescens Molecular ID Assessment and Plan Plan: Assessment: 1. 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 Patient is maintained on prednisone outpatient. He has r eceived 2 doses of rituximab with last dose being October 16, 2023. He is scheduled to receive third dose of rituximab next week. Baseline creatinine near 2. GFR near baseline. UA shows 1+ protein with no red cells. 2. Diabetes mellitus, uncontrolled. Worsened with steroids. 3. Serratia marcescens bacteremia on antibiotics. ID following. 4. Hyponatremia secondary to hypertonicity from hyperglycemia and hypervolemic. Improved. 5. Hypokalemia from diuresis. Replaced. Better. Potassium level got up to 5.3 in maintenance supplementation was discontinued. 6. Hypertension with chronic kidney disease. Stable. 7. Volume overload. 8. Hypomagnesemia from diuresis. Being replaced. Also on oral magnesium oxide. Plan: Add IV Lasix 40 mg twice daily. Replace potassium. 1500 cc fluid restriction. Encouraged oral intake. Maintain prednisone and PPI. Avoid nephrotoxins. Continue to monitor renal function and urine output.
[2023-11-21] MEDS ORDERED: FUROSEMIDE 10 MG/ML 4 ML VIAL IV SCH (12:45)
[2023-11-21] MEDS: POTASSIUM CHLORIDE ER 20 MEQ TAB.ER PO STA (13:44)
[2023-11-21] MEDS: MAGNESIUM SULFATE-D5W PMX 1 GM in DEXTROSE/WATER 1 100ML.BAG IVPB SCH (13:44)
--- NOTE | 2023-11-21 14:11 | P.PN ---
Subjective Progress Note Date: 11/21/23 Hospital Course: 73-year-old male with a history of insulin-dependent type 2 diabetes, hyperten suly, CKD stage III secondary to crestenteric glomerulonephritis, dyslipidemia, CAD status post angioplasty, mild aortic stenosis presenting after a fall at home. Patient has also been slightly encephalopathic. Unclear if he has been taking his medications at home. Chest x-ray in the emergency room was unremarkable with EKG showing sinus tachycardia with PVCs at 106 bpm. Laboratory evaluation revealed a glucose of 750, BUN 110, creatinine 2.01 (at baseline), troponin 0.334, with sodium 123, magnesium 1.0, WBC count 24.8, and hemoglobin 12.9 with an unremarkable UA and a negative acetone. Patient was initially started on insulin drip, but due to persistent hypokalemia, discontinued, now on sliding scale insulin. Cardiology and nephrology consulted. Blood cultures positive for Serratia, likely source is lower extremity cellulitis. Infectious disease consulted. Currently on IV antib iotics. Nephrology started IV Lasix for volume overload. Echocardiogram report reviewed, shows LVEF 50 to 55%. Subjective: Seen and examined at bedside. No acute events overnight. Claims that lower extremity pain is improved. Denies any chest pain, shortness of breath, abdominal pain. Pertinent positives and negatives as discussed above, a complete review of systems was performed and all other systems are negative. Vitals Signs Reviewed. General: Nontoxic, no distress, appears at stated age, morbidly obese Derm: Warm, dry, bilateral lower extremity edema and erythema Head: Atraumatic, normocephalic, symmetric Eyes: EOMI, no lid lag, anicteric sclera Mouth: No lip lesion, mucus membranes moist Cardiovascular: S1S2 reg, no murmur Lungs: CTA bilateral, no rhonchi, no rales, no accessory muscle use Abdominal: Soft, nontender to palpation, no guarding, no appreciable organomegaly Ext: No gross muscle atrophy, 2+ pitting edema, no contractures Neuro: CN II-XI grossly intact, no focal neuro deficits Psych: Alert, oriented x 2, appropriate affect Data Reviewed Today: Pertinent Labs: WBC 13.5, hemoglobin 10.5, sodium 134, potassium 3.7, creatinine 2.28, magnesium 1.5, blood sugars range between 1 58-3 59. Imaging: Imaging Assessment and Plan: Patient was severely ill, needs close monitoring, prognosis guarded Active: Sepsis with Serratia bacteremia, likely secondary to left lower extremity cellulitis Acute metabolic encephalopathy, improved Uncontrolled type 2 diabetes with hyperglycemia Elevated troponin, unlikely to be ACS Chronic kidney disease stage III secondary to crescentic glomerulonephritis Hypervolemia Mild hyponatremia Hypokalemia, resolved Hypomagnesemia History of hypertension History of dyslipidemia History of CAD status post angioplasty -Repeat blood cultures no growth to date -Continued on IV cefepime 2 g every 12 hours, discussed management with ID, continue IV antibiotics as inpatient, discharged on ciprofloxacin for 10 days. -Nephrology note reviewed, continue on prednisone 20 mg daily, started on IV Lasix 40 mg twice daily, IV magnesium to be replaced today -Levemir increased to 35 units, also added 5 units 3 times daily AC aspart, sl iding scale insulin, monitor for hypoglycemia -Cardiology signed off: Continue metoprolol twice daily 50 daily, Imdur 60 daily, atorvastatin 40 daily, outpatient follow-up in 4 weeks DVT ppx: Subcu heparin Code status: Full code Anticipated discharge place: Pending clinical course Anticipated discharge time: Pending clinical course Objective - Vital Signs Vital signs: Vital Signs Temp 98.2 F 11/21/23 11:59 Pulse 77 11/21/23 13:05 Resp 16 11/21/23 13:05 BP 94/60 11/21/23 11:59 Pulse Ox 99 11/21/23 11:59 FiO2 Intake & Output 11/20/23 11/21/23 11/21/23 18:59 06:59 18:59 Intake Total 1068 240 Output Total 400 Balance 1068 -400 240 Weight 91.7 kg Intake: Oral 1068 240 Output: Urine 400 Other: Voiding Method Diaper External Catheter External Catheter # Voids 3 3 # Bowel Movements 1 - Labs CBC & Chem 7: 11/21/23 09:36 11/21/23 09:36 Labs: Abnormal Lab Results - Last 24 Hours (Table) 11/20/23 11/20/23 11/21/23 Range/Units 17:02 20:18 06:04 WBC (3.8-10.6) k/uL RBC (4.30-5.90) m/uL Hgb (13.0-17.5) gm/dL Hct (39.0-53.0) % Neutrophils # (1.3-7.7) k/uL Lymphocytes # (1.0-4.8) k/uL Sodium (137-145) mmol/L BUN (9-20) mg/dL Creatinine (0.66-1.25) mg/dL Glucose (74-99) mg/dL POC Glucose (mg/dL) 178 H 243 H 359 H (70-110) mg/dL Magnesium (1.6-2.3) mg/dL 11/21/23 11/21/23 11/21/23 Range/Units 09:36 09:36 11:26 WBC 13.5 H (3.8-10.6) k/uL RBC 3.28 L (4.30-5.90) m/uL Hgb 10.5 L (13.0-17.5) gm/dL Hct 29.0 L (39.0-53.0) % Neutrophils # 11.8 H (1.3-7.7) k/uL Lymphocytes # 0.8 L (1.0-4.8) k/uL Sodium 134 L (137-145) mmol/L BUN 82 H (9-20) mg/dL Creatinine 2.28 H (0.66-1.25) mg/dL Glucose 100 H (74-99) mg/dL POC Glucose (mg/dL) 158 H (70-110) mg/dL Magnesium 1.5 L (1.6-2.3) mg/dL Microbiology - Last 24 Hours (Table) 11/17/23 19:40 Blood Culture - Preliminary Blood 11/18/23 15:50 Blood Culture - Preliminary Blood 11/18/23 16:05 Blood Culture - Preliminary Blood
--- NOTE | 2023-11-21 14:51 | P.PN ---
Subjective Progress Note Date: 11/20/23 Principal diagnosis: Reason for follow-up is left lower extremity cellulitis and Serratia bacteremia Patient is a 73-year-old male with a past medical history significant for hypertension hyperlipidemia heart failure with renal disease, patient was brought into the hospital for evaluation of fall and laceration to the left chest wall, patient also have a chronic swelling to the left lower extremity more swelling to the left leg noticed to have Serratia marcescens bacteremia prompting this consultation. On today's evaluation that is 11/20/2023, Patient is afebrile patient is currently on room air and denies having any shortness of breath, the patient denies any chest pain or cough, the patient denies any nausea vomiting did not have any abdominal pain and no diarrhea, the patient has been to the left lower extremity and has been insisting on going home Patient white count slightly up to 16.2 today, creatinine is 2.22. Objective - Vital Signs Vital signs: Vital Signs Temp 97.6 F 11/20/23 03:32 Pulse 75 11/20/23 12:33 Resp 16 11/20/23 12:33 BP 151/84 11/20/23 12:33 Pulse Ox 98 11/20/23 12:33 FiO2 Intake & Output 11/19/23 11/20/23 11/20/23 18:59 06:59 18:59 Intake Total 918 480 712 Output Total 950 Balance -32 480 712 Weight 124.738 kg 91.9 kg Intake: IV 20 Invasive Line 1 20 Oral 898 480 712 Output: Urine 950 Other: Voiding Method External Catheter Urinal Diaper # Voids 1 2 3 # Bowel Movements 1 1 1 - Exam GENERAL DESCRIPTION: An elderly male lying in bed in no distress RESPIRATORY SYSTEM: Unlabored breathing , decreased breath sounds at bases HEART: S1 S2 regular rate and rhythm , ABDOMEN: Soft , no tenderness EXTREMITIES: Left leg redness slightly decreased - Labs CBC & Chem 7: 11/21/23 09:36 11/21/23 09:36 Labs: Abnormal Lab Results - Last 24 Hours (Table) 11/19/23 11/19/23 11/19/23 Range/Units 12:34 16:33 19:57 WBC (3.8-10.6) k/uL RBC (4.30-5.90) m/uL Hgb (13.0-17.5) gm/dL Hct (39.0-53.0) % Neutrophils # (1.3-7.7) k/uL Lymphocytes # (1.0-4.8) k/uL Sodium 132 L (137-145) mmol/L Potassium (3.5-5.1) mmol/L BUN 78 H (9-20) mg/dL Creatinine 1.78 H (0.66-1.25) mg/dL Glucose 202 H (74-99) mg/dL POC Glucose (mg/dL) 191 H 290 H (70-110) mg/dL Calcium 8.0 L (8.4-10.2) mg/dL 11/20/23 11/20/23 11/20/23 Range/Units 05:13 11:07 11:07 WBC 16.2 H (3.8-10.6) k/uL RBC 3.80 L (4.30-5.90) m/uL Hgb 11.5 L (13.0-17.5) gm/dL Hct 34.2 L (39.0-53.0) % Neutrophils # 14.5 H (1.3-7.7) k/uL Lymphocytes # 0.7 L (1.0-4.8) k/uL Sodium 132 L (137-145) mmol/L Potassium 5.3 H (3.5-5.1) mmol/L BUN 78 H (9-20) mg/dL Creatinine 2.22 H (0.66-1.25) mg/dL Glucose 245 H (74-99) mg/dL POC Glucose (mg/dL) 248 H (70-110) mg/dL Calcium (8.4-10.2) mg/dL 11/20/23 Range/Units 12:03 WBC (3.8-10.6) k/uL RBC (4.30-5.90) m/uL Hgb (13.0-17.5) gm/dL Hct (39.0-53.0) % Neutrophils # (1.3-7.7) k/uL Lymphocytes # (1.0-4.8) k/uL Sodium (137-145) mmol/L Potassium (3.5-5.1) mmol/L BUN (9-20) mg/dL Creatinine (0.66-1.25) mg/dL Glucose (74-99) mg/dL POC Glucose (mg/dL) 286 H (70-110) mg/dL Calcium (8.4-10.2) mg/dL Microbiology - Last 24 Hours (Table) 11/17/23 19:25 Blood Culture Gram Stain - Final Blood Blood Culture - Final Serratia marcescens Molecular ID 11/17/23 19:40 Blood Culture - Preliminary Blood 11/18/23 15:50 Blood Culture - Preliminary Blood 11/18/23 16:05 Blood Culture - Preliminary Blood Assessment and Plan (1) Left leg cellulitis Current Visit: Yes Status: Acute Code(s): L03.116 - CELLULITIS OF LEFT LOWER LIMB SNOMED Code(s): 18761729351525202 (2) Bacterial infection due to Serratia Current Visit: Yes Status: Acute Code(s): A49.8 - OTHER BACTERIAL INFECTIONS OF UNSPECIFIED SITE SNOMED Code(s): 29311869 (3) Bacteremia Current Visit: Yes Status: Acute Code(s): R78.81 - BACTEREMIA SNOMED Code(s): 7001485 Plan: 1patient with Serratia marcescens bacteremia in this patient presented to hospital with weakness fall noticed to have extensive cellulitis left lower extremity likely the source of this bacteremia patient chest x-ray report negative for acute infiltrate improvement soft on clinical examination urine has been negative 2-patient with underlying renal insufficiency and high risk of nephrotoxicity 3--blood culture repeated has been negative so far 4patient white count slightly up today recommend to continue cefepime for another 24 to 48 hours before transition to oral antibiotics discussed with admitting team Dictation was produced using [employer] dictation software. please excuse any grammatical, word or spelling errors. Time with Patient: Less than 30
--- NOTE | 2023-11-21 14:51 | P.PN ---
Subjective Progress Note Date: 11/21/23 Principal diagnosis: Reason for follow-up is left lower extremity cellulitis and Serratia bacteremia Patient is a 73-year-old male with a past medical history significant for hypertension hyperlipidemia heart failure with renal disease, patient was brought into the hospital for evaluation of fall and laceration to the left chest wall, patient also have a chronic swelling to the left lower extremity more swelling to the left leg noticed to have Serratia marcescens bacteremia prompting this consultation. On today's evaluation that is 11/21/2023, patient has been afebrile, patient is breathing comfortably and is currently on room air, patient denies having any significant cough no chest pain shortness of breath, patient denies nausea vomiting or diarrhea and no abdominal pain, feeling better denies pain to lower extremity Patient white count is down to 13.5 and creatinine is 2.28 blood culture repeat has been negative so far Objective - Vital Signs Vital signs: Vital Signs Temp 98.2 F 11/21/23 11:59 Pulse 77 11/21/23 13:05 Resp 16 11/21/23 13:05 BP 94/60 11/21/23 11:59 Pulse Ox 99 11/21/23 11:59 FiO2 Intake & Output 11/20/23 11/21/23 11/21/23 18:59 06:59 18:59 Intake Total 1068 240 Output Total 400 Balance 1068 -400 240 Weight 91.7 kg Intake: Oral 1068 240 Output: Urine 400 Other: Voiding Method Diaper External Catheter External Catheter # Voids 3 3 # Bowel Movements 1 - Exam GENERAL DESCRIPTION: An elderly male lying in bed in no distress RESPIRATORY SYSTEM: Unlabored breathing , decreased breath sounds at bases HEART: S1 S2 regular rate and rhythm , ABDOMEN: Soft , no tenderness EXTREMITIES: Left leg redness slightly decreased - Labs CBC & Chem 7: 11/21/23 09:36 11/21/23 09:36 Labs: Abnormal Lab Results - Last 24 Hours (Table) 11/20/23 11/20/23 11/21/23 Range/Units 17:02 20:18 06:04 WBC (3.8-10.6) k/uL RBC (4.30-5.90) m/uL Hgb (13.0-17.5) gm/dL Hct (39.0-53.0) % Neutrophils # (1.3-7.7) k/uL Lymphocytes # (1.0-4.8) k/uL Sodium (137-145) mmol/L BUN (9-20) mg/dL Creatinine (0.66-1.25) mg/dL Glucose (74-99) mg/dL POC Glucose (mg/dL) 178 H 243 H 359 H (70-110) mg/dL Magnesium (1.6-2.3) mg/dL 11/21/23 11/21/23 11/21/23 Range/Units 09:36 09:36 11:26 WBC 13.5 H (3.8-10.6) k/uL RBC 3.28 L (4.30-5.90) m/uL Hgb 10.5 L (13.0-17.5) gm/dL Hct 29.0 L (39.0-53.0) % Neutrophils # 11.8 H (1.3-7.7) k/uL Lymphocytes # 0.8 L (1.0-4.8) k/uL Sodium 134 L (137-145) mmol/L BUN 82 H (9-20) mg/dL Creatinine 2.28 H (0.66-1.25) mg/dL Glucose 100 H (74-99) mg/dL POC Glucose (mg/dL) 158 H (70-110) mg/dL Magnesium 1.5 L (1.6-2.3) mg/dL Microbiology - Last 24 Hours (Table) 11/17/23 19:40 Blood Culture - Preliminary Blood 11/18/23 15:50 Blood Culture - Preliminary Blood 11/18/23 16:05 Blood Culture - Preliminary Blood Assessment and Plan (1) Left leg cellulitis Current Visit: Yes Status: Acute Code(s): L03.116 - CELLULITIS OF LEFT LOWER LIMB SNOMED Code(s): 67072722444811460 (2) Bacterial infection due to Serratia Current Visit: Yes Status: Acute Code(s): A49.8 - OTHER BACTERIAL INFECTIONS OF UNSPECIFIED SITE SNOMED Code(s): 09867630 (3) Bacteremia Current Visit: Yes Status: Acute Code(s): R78.81 - BACTEREMIA SNOMED Code(s): 6589899 Plan: 1patient with Serratia marcescens bacteremia in this patient presented to hospital with weakness fall noticed to have extensive cellulitis left lower extremity likely the source of this bacteremia patient chest x-ray report negative for acute infiltrate improvement soft on clinical examination urine has been negative 2-patient with underlying renal insufficiency and high risk of nephrotoxicity 3--blood culture repeated has been negative so far, the patient white count is down to 13,000 4patient to continue cefepime while inpatient finishing therapy with oral Cipro x 10 days on discharge Dictation was produced using [employer] dictation software. please excuse any grammatical, word or spelling errors. Time with Patient: Less than 30
[2023-11-21 16:30] LABS: Glucose,Whole Blood 288 mg/dL (70-110)
[2023-11-21] MEDS: FUROSEMIDE 10 MG/ML 4 ML VIAL IV SCH (16:45)
[2023-11-21 20:11] LABS: Glucose,Whole Blood 174 mg/dL (70-110)
[2023-11-22 06:10] LABS: Glucose,Whole Blood 113 mg/dL (70-110)
[2023-11-22] MEDS: INSULIN DETEMIR (LEVEMIR) 100 UNIT/ML SYR SQ SCH (06:30)
[2023-11-22 08:47] LABS: African American GFR (CKD) 30 (>60 ml/min/1.73 sqM); Anion Gap 9 mmol/L; Blood Urea Nitrogen 89 mg/dL (9-20); Calcium 8.9 mg/dL (8.4-10.2); Carbon Dioxide 29 mmol/L (22-30); Chloride 98 mmol/L (98-107); Glucose 92 mg/dL (74-99); Magnesium 1.8 mg/dL (1.6-2.3); Non-African American GFR(CKD) 26 (>60 ml/min/1.73 sqM); Potassium 3.3 mmol/L (3.5-5.1); Sodium 136 mmol/L (137-145)
[2023-11-22 09:01] LABS: Basophils # (A) 0.1 k/uL (0-0.2); Basophils % (A) 0 %; Eosinophils # (A) 0.1 k/uL (0-0.7); Eosinophils % (A) 1 %; HCT 33.4 % (39.0-53.0); HGB 11.2 gm/dL (13.0-17.5); Lymphocytes % (A) 7 %; MCH 29.8 pg (25.0-35.0); MCHC 33.6 g/dL (31.0-37.0); MCV 88.8 fL (80.0-100.0); Mean Platelet Volume 9.5; Monocytes # (A) 0.7 k/uL (0-1.0); Monocytes % (A) 5 %; Neutrophils # (A) 13.3 k/uL (1.3-7.7); Neutrophils % (A) 87 %; Platelet Count 282 k/uL (150-450); RBC 3.76 m/uL (4.30-5.90); RDW 14.3 % (11.5-15.5); WBC 15.3 k/uL (3.8-10.6)
--- NOTE | 2023-11-22 11:06 | P.PN ---
Subjective Patient is seen in follow-up for chronic kidney disease. Renal function fairly stable. Has been voiding. Denies chest pain or shortness of breath. No vomiting or diarrhea. On IV Lasix. Vital signs are stable. General: No acute distress. HEENT: Head exam is unremarkable. LUNGS: No audible rhonchi or wheezes. HEART: Rate and Rhythm are regular. ABDOMEN: Nontender. EXTREMITITES: 2+ edema. Objective - Vital Signs Vital signs: Vital Signs Temp 98.0 F 11/22/23 08:00 Pulse 76 11/22/23 08:00 Resp 18 11/22/23 08:00 BP 102/64 11/22/23 08:00 Pulse Ox 99 11/22/23 08:00 FiO2 Intake & Output 11/21/23 11/22/23 11/22/23 18:59 06:59 18:59 Intake Total 240 240 118 Output Total 1000 2650 Balance -760 -2410 118 Weight 89.2 kg Intake: Oral 240 240 118 Output: Urine 1000 2650 Other: Voiding Method External Catheter External Catheter External Catheter # Bowel Movements 1 - Labs CBC & Chem 7: 11/22/23 07:27 11/22/23 07:27 Labs: Abnormal Lab Results - Last 24 Hours (Table) 11/21/23 11/21/23 11/21/23 Range/Units 09:36 09:36 11:26 WBC 13.5 H (3.8-10.6) k/uL RBC 3.28 L (4.30-5.90) m/uL Hgb 10.5 L (13.0-17.5) gm/dL Hct 29.0 L (39.0-53.0) % Neutrophils # 11.8 H (1.3-7.7) k/uL Lymphocytes # 0.8 L (1.0-4.8) k/uL Sodium 134 L (137-145) mmol/L Potassium (3.5-5.1) mmol/L BUN 82 H (9-20) mg/dL Creatinine 2.28 H (0.66-1.25) mg/dL Glucose 100 H (74-99) mg/dL POC Glucose (mg/dL) 158 H (70-110) mg/dL Magnesium 1.5 L (1.6-2.3) mg/dL 05/11/21/23 11/22/23 Range/Units 16:28 20:09 06:08 WBC (3.8-10.6) k/uL RBC (4.30-5.90) m/uL Hgb (13.0-17.5) gm/dL Hct (39.0-53.0) % Neutrophils # (1.3-7.7) k/uL Lymphocytes # (1.0-4.8) k/uL Sodium (137-145) mmol/L Potassium (3.5-5.1) mmol/L BUN (9-20) mg/dL Creatinine (0.66-1.25) mg/dL Glucose (74-99) mg/dL POC Glucose (mg/dL) 288 H 174 H 113 H (70-110) mg/dL Magnesium (1.6-2.3) mg/dL 11/22/23 11/22/23 Range/Units 07:27 07:27 WBC 15.3 H (3.8-10.6) k/uL RBC 3.76 L (4.30-5.90) m/uL Hgb 11.2 L (13.0-17.5) gm/dL Hct 33.4 L (39.0-53.0) % Neutrophils # (1.3-7.7) k/uL Lymphocytes # (1.0-4.8) k/uL Sodium 136 L (137-145) mmol/L Potassium 3.3 L (3.5-5.1) mmol/L BUN 89 H (9-20) mg/dL Creatinine 2.39 H (0.66-1.25) mg/dL Glucose (74-99) mg/dL POC Glucose (mg/dL) (70-110) mg/dL Magnesium (1.6-2.3) mg/dL Microbiology - Last 24 Hours (Table) 11/18/23 15:50 Blood Culture - Preliminary Blood 11/18/23 16:05 Blood Culture - Preliminary Blood Assessment and Plan Plan: Assessment: 1. 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 Patient is maintained on prednisone outpatient. He has received 2 doses of rituximab with last dose being October 16, 2023. He is scheduled to receive third dose of rituximab next week. Baseline creatinine near 2. UA shows 1+ protein with no red cells. 2. Diabetes mellitus, uncontrolled. Worsened with steroids. 3. Serratia marcescens bacteremia on antibiotics. ID following. 4. Hyponatremia secondary to hypertonicity from hyperglycemia and hypervolemic. Improved. 5. Hypokalemia from diuresis. 6. Hypertension with chronic kidney disease. Stable. 7. Volume overload. 8. Hypomagnesemia from diuresis. On oral magnesium oxide. Better. Plan: Stop IV Lasix tonight. Add torsemide 40 mg once daily. Resume maintenance potassium supplementation. 1500 cc fluid restriction. Encouraged oral intake. Maintain prednisone and PPI. Avoid nephrotoxins. Continue to monitor renal function and urine output.
[2023-11-22 11:26] LABS: Glucose,Whole Blood 212 mg/dL (70-110)
[2023-11-22 11:42] LABS: RBC Morphology Normal
[2023-11-22] MEDS: POTASSIUM CHLORIDE ER 20 MEQ TAB.ER PO STA (11:59)
--- NOTE | 2023-11-22 14:25 | P.PN ---
Subjective Progress Note Date: 11/22/23 Hospital Course: 73-year-old male with a history of insulin-dependent type 2 diabetes, hyperten suly, CKD stage III secondary to crestenteric glomerulonephritis, dyslipidemia, CAD status post angioplasty, mild aortic stenosis presenting after a fall at home. Patient has also been slightly encephalopathic. Unclear if he has been taking his medications at home. Chest x-ray in the emergency room was unremarkable with EKG showing sinus tachycardia with PVCs at 106 bpm. Laboratory evaluation revealed a glucose of 750, BUN 110, creatinine 2.01 (at baseline), troponin 0.334, with sodium 123, magnesium 1.0, WBC count 24.8, and hemoglobin 12.9 with an unremarkable UA and a negative acetone. Patient was initially started on insulin drip, but due to persistent hypokalemia, discontinued, now on sliding scale insulin. Cardiology and nephrology consulted. Blood cultures positive for Serratia, likely source is lower extremity cellulitis. Infectious disease consulted. Currently on IV antib iotics. Nephrology started IV Lasix for volume overload. Echocardiogram report reviewed, shows LVEF 50 to 55%. Subjective: Seen and examined at bedside. No acute events overnight. Claims that lower extremity pain is improved. Denies any chest pain, shortness of breath, abdominal pain. Pertinent positives and negatives as discussed above, a complete review of systems was performed and all other systems are negative. Vitals Signs Reviewed. General: Nontoxic, no distress, appears at stated age, morbidly obese Derm: Warm, dry, bilateral lower extremity edema and erythema Head: Atraumatic, normocephalic, symmetric Eyes: EOMI, no lid lag, anicteric sclera Mouth: No lip lesion, mucus membranes moist Cardiovascular: S1S2 reg, no murmur Lungs: CTA bilateral, no rhonchi, no rales, no accessory muscle use Abdominal: Soft, nontender to palpation, no guarding, no appreciable organomegaly Ext: No gross muscle atrophy, 2+ pitting edema, no contractures Neuro: CN II-XI grossly intact, no focal neuro deficits Psych: Alert, oriented x 2, appropriate affect Data Reviewed Today: Pertinent Labs: WBC 15.3, hemoglobin 11.2, potassium 3.3, creatinine 2.39, blood sugars range between 92-1 74, magnesium 1.8 Imaging: No new imaging Assessment and Plan: Patient was severely ill, needs close monitoring, prognosis guarded Active: Sepsis with Serratia bacteremia, likely secondary to left lower extremity cellulitis Acute metabolic encephalopathy, improved Uncontrolled type 2 diabetes with hyperglycemia Elevated troponin, unlikely to be ACS Nonoliguric acute kidney injury on chronic kidney disease stage III secondary to crescentic glomerulonephritis Hypervolemia Mild hyponatremia Hypokalemia Hypomagnesemia, resolved History of hypertension History of dyslipidemia History of CAD status post angioplasty -Repeat blood cultures no growth to date -Continued on IV cefepime 2 g every 12 hours, ID following, continue IV antibiotics as inpatient, discharged on ciprofloxacin for 10 days. -Nephrology note reviewed, continue on prednisone 20 mg daily, finished IV Lasix today, started on oral torsemide 40 mg daily, continue fluid restriction IV magnesium to be replaced today -Continue Levemir 35 units, and 5 units 3 times daily AC aspart, sliding scale insulin, monitor for hypoglycemia -Cardiology signed off: Continue metoprolol twice daily 50 daily, Imdur 60 daily, atorvastatin 40 daily, outpatient follow-up in 4 weeks DVT ppx: Subcu heparin Code status: Full code Anticipated discharge place: Home with home care Anticipated discharge time: Likely tomorrow Objective - Vital Signs Vital signs: Vital Signs Temp 97.8 F 11/22/23 12:00 Pulse 80 11/22/23 12:58 Resp 16 11/22/23 12:58 BP 110/69 11/22/23 12:00 Pulse Ox 98 11/22/23 12:00 FiO2 Intake & Output 11/21/23 11/22/23 11/22/23 18:59 06:59 18:59 Intake Total 240 240 118 Output Total 1000 2650 Balance -760 -2410 118 Weight 89.2 kg Intake: Oral 240 240 118 Output: Urine 1000 2650 Other: Voiding Method External Catheter External Catheter External Catheter # Bowel Movements 1 - Labs CBC & Chem 7: 11/22/23 07:27 11/22/23 07:27 Labs: Abnormal Lab Results - Last 24 Hours (Table) 11/21/23 11/21/23 11/22/23 Range/Units 16:28 20:09 06:08 WBC (3.8-10.6) k/uL RBC (4.30-5.90) m/uL Hgb (13.0-17.5) gm/dL Hct (39.0-53.0) % Neutrophils # (1.3-7.7) k/uL Sodium (137-145) mmol/L Potassium (3.5-5.1) mmol/L BUN (9-20) mg/dL Creatinine (0.66-1.25) mg/dL POC Glucose (mg/dL) 288 H 174 H 113 H (70-110) mg/dL 11/22/23 11/22/23 11/22/23 Range/Units 07:27 07:27 11:25 WBC 15.3 H (3.8-10.6) k/uL RBC 3.76 L (4.30-5.90) m/uL Hgb 11.2 L (13.0-17.5) gm/dL Hct 33.4 L (39.0-53.0) % Neutrophils # 13.3 H (1.3-7.7) k/uL Sodium 136 L (137-145) mmol/L Potassium 3.3 L (3.5-5.1) mmol/L BUN 89 H (9-20) mg/dL Creatinine 2.39 H (0.66-1.25) mg/dL POC Glucose (mg/dL) 212 H (70-110) mg/dL Microbiology - Last 24 Hours (Table) 11/18/23 15:50 Blood Culture - Preliminary Blood 11/18/23 16:05 Blood Culture - Preliminary Blood
--- NOTE | 2023-11-22 15:29 | P.PN ---
Subjective Progress Note Date: 11/22/23 Principal diagnosis: Reason for follow-up is left lower extremity cellulitis and Serratia bacteremia Patient is a 73-year-old male with a past medical history significant for hypertension hyperlipidemia heart failure with renal disease, patient was brought into the hospital for evaluation of fall and laceration to the left chest wall, patient also have a chronic swelling to the left lower extremity more swelling to the left leg noticed to have Serratia marcescens bacteremia prompting this consultation. On today's evaluation that is 11/22/2023,the patient denies any fever or any chills, patient is breathing comfortably on room air, the patient denies chest pain shortness of breath and no significant cough, patient denies abdominal pain, no nausea vomiting or diarrhea. Patient denies pain to the lower extremity feeling better wants to go home. Patient white count is slightly up to 15.3 today, creatinine is 2.39 blood culture repeat has been negative Objective - Vital Signs Vital signs: Vital Signs Temp 98.0 F 11/22/23 08:00 Pulse 76 11/22/23 08:00 Resp 18 11/22/23 08:00 BP 102/64 11/22/23 08:00 Pulse Ox 99 11/22/23 08:00 FiO2 Intake & Output 11/21/23 11/22/23 11/22/23 18:59 06:59 18:59 Intake Total 240 240 118 Output Total 1000 2650 Balance -760 -2410 118 Weight 89.2 kg Intake: Oral 240 240 118 Output: Urine 1000 2650 Other: Voiding Method External Catheter External Catheter External Catheter # Bowel Movements 1 - Exam GENERAL DESCRIPTION: An elderly male lying in bed in no distress RESPIRATORY SYSTEM: Unlabored breathing , decreased breath sounds at bases HEART: S1 S2 regular rate and rhythm , ABDOMEN: Soft , no tenderness EXTREMITIES: Left leg redness slightly decreased - Labs CBC & Chem 7: 11/22/23 07:27 11/22/23 07:27 Labs: Abnormal Lab Results - Last 24 Hours (Table) 11/21/23 11/21/23 11/21/23 Range/Units 09:36 09:36 16:28 WBC 13.5 H (3.8-10.6) k/uL RBC 3.28 L (4.30-5.90) m/uL Hgb 10.5 L (13.0-17.5) gm/dL Hct 29.0 L (39.0-53.0) % Neutrophils # 11.8 H (1.3-7.7) k/uL Lymphocytes # 0.8 L (1.0-4.8) k/uL Sodium 134 L (137-145) mmol/L Potassium (3.5-5.1) mmol/L BUN 82 H (9-20) mg/dL Creatinine 2.28 H (0.66-1.25) mg/dL Glucose 100 H (74-99) mg/dL POC Glucose (mg/dL) 288 H (70-110) mg/dL Magnesium 1.5 L (1.6-2.3) mg/dL 11/21/23 11/22/23 11/22/23 Range/Units 20:09 06:08 07:27 WBC 15.3 H (3.8-10.6) k/uL RBC 3.76 L (4.30-5.90) m/uL Hgb 11.2 L (13.0-17.5) gm/dL Hct 33.4 L (39.0-53.0) % Neutrophils # 13.3 H (1.3-7.7) k/uL Lymphocytes # (1.0-4.8) k/uL Sodium (137-145) mmol/L Potassium (3.5-5.1) mmol/L BUN (9-20) mg/dL Creatinine (0.66-1.25) mg/dL Glucose (74-99) mg/dL POC Glucose (mg/dL) 174 H 113 H (70-110) mg/dL Magnesium (1.6-2.3) mg/dL 11/22/23 11/22/23 Range/Units 07:27 11:25 WBC (3.8-10.6) k/uL RBC (4.30-5.90) m/uL Hgb (13.0-17.5) gm/dL Hct (39.0-53.0) % Neutrophils # (1.3-7.7) k/uL Lymphocytes # (1.0-4.8) k/uL Sodium 136 L (137-145) mmol/L Potassium 3.3 L (3.5-5.1) mmol/L BUN 89 H (9-20) mg/dL Creatinine 2.39 H (0.66-1.25) mg/dL Glucose (74-99) mg/dL POC Glucose (mg/dL) 212 H (70-110) mg/dL Magnesium (1.6-2.3) mg/dL Microbiology - Last 24 Hours (Table) 11/18/23 15:50 Blood Culture - Preliminary Blood 11/18/23 16:05 Blood Culture - Preliminary Blood Assessment and Plan (1) Left leg cellulitis Current Visit: Yes Status: Acute Code(s): L03.116 - CELLULITIS OF LEFT LOWER LIMB SNOMED Code(s): 64985978425514295 (2) Bacterial infection due to Serratia Current Visit: Yes Status: Acute Code(s): A49.8 - OTHER BACTERIAL INFECTIONS OF UNSPECIFIED SITE SNOMED Code(s): 32425043 (3) Bacteremia Current Visit: Yes Status: Acute Code(s): R78.81 - BACTEREMIA SNOMED Code(s): 0737949 Plan: 1patient with Serratia marcescens bacteremia in this patient presented to hospital with weakness fall noticed to have extensive cellulitis left lower extremity likely the source of this bacteremia patient chest x-ray report neg ative for acute infiltrate improvement soft on clinical examination urine has been negative 2-patient with underlying renal insufficiency and high risk of nephrotoxicity 3--blood culture repeated has been negative so far, the patient white count is slightly up today however overall improvement clinically to the left lower extremity cellulitis we will keep the patient on cefepime repeat CBC and CRP with a.m. lab and monitor clinical course closely Dictation was produced using [employer] dictation software. please excuse any grammatical, word or spelling errors. Time with Patient: Less than 30
[2023-11-22] MEDS: FUROSEMIDE 10 MG/ML 4 ML VIAL IV ONE (15:36)
[2023-11-22 16:44] LABS: Glucose,Whole Blood 380 mg/dL (70-110)
[2023-11-22 20:11] LABS: Glucose,Whole Blood 345 mg/dL (70-110)
[2023-11-22] MEDS: CEFEPIME 1 GM in SODIUM CHLORIDE 0.9% 50 ML IVPB SCH (20:17)
[2023-11-23 06:26] LABS: Glucose,Whole Blood 263 mg/dL (70-110)
[2023-11-23 08:48] LABS: Basophils # (A) 0.1 k/uL (0-0.2); Basophils % (A) 1 %; Eosinophils # (A) 0.1 k/uL (0-0.7); Eosinophils % (A) 1 %; HCT 33.9 % (39.0-53.0); HGB 10.9 gm/dL (13.0-17.5); Lymphocytes # (A) 1.1 k/uL (1.0-4.8); Lymphocytes % (A) 7 %; MCH 29.6 pg (25.0-35.0); MCHC 32.3 g/dL (31.0-37.0); MCV 91.6 fL (80.0-100.0); Mean Platelet Volume 8.7; Monocytes # (A) 0.7 k/uL (0-1.0); Monocytes % (A) 4 %; Neutrophils # (A) 13.5 k/uL (1.3-7.7); Neutrophils % (A) 86 %; Platelet Count 283 k/uL (150-450); RDW 14.5 % (11.5-15.5); WBC 15.7 k/uL (3.8-10.6)
[2023-11-23 09:00] LABS: African American GFR (CKD) 27 (>60 ml/min/1.73 sqM); Anion Gap 9 mmol/L; Blood Urea Nitrogen 96 mg/dL (9-20); Calcium 8.8 mg/dL (8.4-10.2); Carbon Dioxide 29 mmol/L (22-30); Chloride 100 mmol/L (98-107); Glucose 139 mg/dL (74-99); Magnesium 1.6 mg/dL (1.6-2.3); Non-African American GFR(CKD) 24 (>60 ml/min/1.73 sqM); Potassium 3.7 mmol/L (3.5-5.1); Sodium 138 mmol/L (137-145)
[2023-11-23] MEDS: TORSEMIDE 20 MG TAB PO SCH (09:22)
[2023-11-23] MEDS: POTASSIUM CHLORIDE ER 20 MEQ TAB.ER PO SCH (09:23)
--- NOTE | 2023-11-23 11:14 | P.PN ---
Subjective Patient is seen in follow-up for chronic kidney disease. Renal function slightly worse from diuresis. Has been voiding. Denies chest pain or shortness of breath. No vomiting or diarrhea. On torsemide. Vital signs are stable. General: No acute distress. HEENT: Head exam is unremarkable. LUNGS: No audible rhonchi or wheezes. HEART: Rate and Rhythm are regular. ABDOMEN: Nontender. EXTREMITITES: 1+ edema. Objective - Vital Signs Vital signs: Vital Signs Temp 97.6 F 11/23/23 08:40 Pulse 72 11/23/23 08:40 Resp 18 11/23/23 08:40 BP 117/72 11/23/23 08:40 Pulse Ox 96 11/23/23 08:40 FiO2 Intake & Output 11/22/23 11/23/23 11/23/23 18:59 06:59 18:59 Intake Total 218 Output Total 500 500 Balance -282 -500 Weight 88.9 kg Intake: Intake, IV Titration 100 Amount Cefepime 1 gm In Sodium 100 Chloride 0.9% 50 ml @ 12. 5 mls/hr IVPB Q12HR [facility] Rx#:[id number] Oral 118 Output: Urine 500 500 Other: Voiding Method External Catheter External Catheter External Catheter - Labs CBC & Chem 7: 11/23/23 07:59 11/23/23 07:59 Labs: Abnormal Lab Results - Last 24 Hours (Table) 11/22/23 11/22/23 11/22/23 Range/Units 07:27 11:25 16:43 WBC (3.8-10.6) k/uL RBC (4.30-5.90) m/uL Hgb (13.0-17.5) gm/dL Hct (39.0-53.0) % Neutrophils # 13.3 H (1.3-7.7) k/uL BUN (9-20) mg/dL Creatinine (0.66-1.25) mg/dL Glucose (74-99) mg/dL POC Glucose (mg/dL) 212 H 380 H (70-110) mg/dL 11/22/23 11/23/23 11/23/23 Range/Units 20:09 06:24 07:59 WBC 15.7 H (3.8-10.6) k/uL RBC 3.70 L (4.30-5.90) m/uL Hgb 10.9 L (13.0-17.5) gm/dL Hct 33.9 L (39.0-53.0) % Neutrophils # 13.5 H (1.3-7.7) k/uL BUN (9-20) mg/dL Creatinine (0.66-1.25) mg/dL Glucose (74-99) mg/dL POC Glucose (mg/dL) 345 H 263 H (70-110) mg/dL 11/23/23 Range/Units 07:59 WBC (3.8-10.6) k/uL RBC (4.30-5.90) m/uL Hgb (13.0-17.5) gm/dL Hct (39.0-53.0) % Neutrophils # (1.3-7.7) k/uL BUN 96 H (9-20) mg/dL Creatinine 2.56 H (0.66-1.25) mg/dL Glucose 139 H (74-99) mg/dL POC Glucose (mg/dL) (70-110) mg/dL Microbiology - Last 24 Hours (Table) 11/17/23 19:40 Blood Culture - Final Blood Assessment and Plan Plan: Assessment: 1. 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 Patient is maintained on prednisone outpatient. He has received 2 doses of rituximab with last dose being October 16, 2023. He is scheduled to receive third dose of rituximab next week. Baseline creatinine near 2. UA shows 1+ protein with no red cells. 2. Diabetes mellitus, uncontrolled. Worsened with steroids. 3. Serratia marcescens bacteremia on antibiotics. ID following. 4. Hyponatremia secondary to hypertonicity from hyperglycemia and hypervolemic. Improved. 5. Hypokalemia from diuresis. Replaced. Better. 6. Hypertension with chronic kidney disease. Controlled. 7. Volume overload. Improved with diuresis. 8. Hypomagnesemia from diuresis. On oral magnesium oxide. Better. Plan: Maintain torsemide. Maintain potassium supplementation. 1500 cc fluid restriction. Encouraged oral intake. Maintain prednisone and PPI. Avoid nephrotoxins. Continue to monitor renal function and urine output. Repeat BMP and magnesium level 2 to 3 days postdischarge. Follow-up outpatient in 1 week.
[2023-11-23 11:58] LABS: Glucose,Whole Blood 352 mg/dL (70-110)
--- NOTE | 2023-11-23 12:25 | P.DS ---
Providers Date of admission: 11/17/23 19:49 Expected date of discharge: 11/23/23 Attending physician: Rohit Pena MD Consults: 11/17/23 19:47 Consult Physician Urgent Consulting Provider: [facility] Consult Reason/Comments: elevated trop Do you want consulting provider notified?: Yes 11/18/23 09:32 Consult Physician Routine Consulting Provider: Ericka Sheehan Consult Reason/Comments: hyponat, CKD Do you want consulting provider notified?: Yes 11/18/23 14:56 Consult Physician Routine Consulting Provider: Robert Loomis Consult Reason/Comments: GNB bacteremia Do you want consulting provider notified?: Yes Primary care physician: [facility] Course: Discharge Diagnosis: Sepsis with Serratia bacteremia Left lower extremity cellulitis Acute metabolic encephalopathy Uncontrolled type 2 diabetes with hyperglycemia Elevated troponin, ACS ruled out Nonoliguric acute kidney injury on chronic kidney disease stage III secondary to crescentic glomerulonephritis Hypervolemia Mild hyponatremia Hypokalemia Hypomagnesemia History of hypertension History of dyslipidemia History of CAD status post angioplasty Hospital Course: 73-year-old male with a history of insulin-dependent type 2 diabetes, hypertension, CKD stage III secondary to crestenteric glomerulonephritis, dyslipidemia, CAD status post angioplasty, mild aortic stenosis presenting after a fall at home. Patient has also been slightly encephalopathic. Unclear if he has been taking his medications at home. Chest x-ray in the emergency room was unremarkable with EKG showing sinus tachycardia with PVCs at 106 bpm. Laboratory evaluation revealed a glucose of 750, BUN 110, creatinine 2.01 (at baseline), troponin 0.334, with sodium 123, magnesium 1.0, WBC count 24.8, and hemoglobin 12.9 with an unremarkable UA and a negative acetone. Patient was initially started on insulin drip, but due to persistent hypokalemia, discontinued, now on sliding scale insulin. Cardiology and nephrology consulted. Blood cultures positive for Serratia, likely source is lower extremity cellulitis. Infectious disease consulted. Was started on IV cefepime. Nephrology started IV Lasix for volume overload. Transition to oral torsemide. Patient also started on prednisone 20 mg daily. Echocardiogram report reviewed, shows LVEF 50 to 55%. Patient has a long history of medication noncompliance. His A1c was 14.4. His girlfriend is usually the one that gives him insulin, and was not managing it appropriately. He was advised multiple times to go to subacute rehab, however he refused. Home care was arranged. Patient was discharged with oral antibiotics, follow-up with nephrology, and repeat BMP and magnesium in 3 days. Patient seen and examined at bedside. Vital signs reviewed and stable. General: Nontoxic, no distress, appears at stated age, morbidly obese Derm: Warm, dry, bilateral lower extremity edema and erythema slightly improved Head: Atraumatic, normocephalic, symmetric Eyes: EOMI, no lid lag, anicteric sclera Mouth: No lip lesion, mucus membranes moist Cardiovascular: S1S2 reg, no murmur Lungs: CTA bilateral, no rhonchi, no rales, no accessory muscle use Abdominal: Soft, nontender to palpation, no guarding, no appreciable organomegaly Ext: No gross muscle atrophy, 2+ pitting edema, no contractures Neuro: CN II-XI grossly intact, no focal neuro deficits Psych: Alert, oriented x 3, appropriate affect A total of 45 minutes of time were spent preparing this complex discharge summary. Patient was discharged on 11/23/2023 at 1059. Patient Condition at Discharge: Stable Plan - Discharge Summary New Discharge Prescriptions: New Torsemide [Demadex] 40 mg PO DAILY #60 tab Aspirin 81 mg PO DAILY #60 tab predniSONE [Deltasone] 20 mg PO DAILY #60 tab Potassium Chloride ER [K-Dur 20] 20 meq PO DAILY #60 tab Ciprofloxacin HCl [Cipro] 500 mg PO Q12HR 10 Days #20 tab Continue Isosorbide Mononitrate ER [Imdur] 60 mg PO DAILY #30 tab.er.24h Atorvastatin [Lipitor] 40 mg PO HS #30 tab Metoprolol Tartrate [Lopressor] 50 mg PO BID-W/MEALS Magnesium Oxide [Mag-Ox] 400 mg PO DAILY Calcium Acetate [PhosLo] 667 mg PO TID-W/MEALS Acetaminophen Tab [Tylenol] 650 mg PO Q8H PRN PRN Reason: Pain Pantoprazole [Protonix] 40 mg PO DAILY 30 Days #30 tab Changed Insulin NPH Hum/Reg Insulin Hm [humuLIN 70/30 Kwikpen] 30 unit SQ AC-BRKFST #7 each Insulin NPH Hum/Reg Insulin Hm [humuLIN 70/30 Kwikpen] 20 unit SQ AC-SUPPER #7 each Discontinued amLODIPine [Norvasc] 10 mg PO DAILY #30 tab Torsemide [Demadex] 20 mg PO DAILY Cefuroxime [Ceftin] 250 mg PO Q12H hydrALAZINE HCL [Apresoline] 100 mg PO TID-W/MEALS metOLazone [Zaroxolyn] 5 mg PO Q2D predniSONE 40 mg PO DAILY Potassium Chloride ER [K-Dur 20] 40 meq PO BID Discharge Medication List Atorvastatin [Lipitor] 40 mg PO HS #30 tab 08/17/20 [Rx] Isosorbide Mononitrate ER [Imdur] 60 mg PO DAILY #30 tab.er.24h 08/17/20 [Rx] Pantoprazole [Protonix] 40 mg PO DAILY 30 Days #30 tab 05/10/23 [Rx] Acetaminophen Tab [Tylenol] 650 mg PO Q8H PRN 11/17/23 [History] Calcium Acetate [PhosLo] 667 mg PO TID-W/MEALS 11/17/23 [History] Magnesium Oxide [Mag-Ox] 400 mg PO DAILY 11/17/23 [History] Metoprolol Tartrate [Lopressor] 50 mg PO BID-W/MEALS 11/17/23 [History] Aspirin 81 mg PO DAILY #60 tab 11/23/23 [Rx] Ciprofloxacin HCl [Cipro] 500 mg PO Q12HR 10 Days #20 tab 11/23/23 [Rx] Insulin NPH Hum/Reg Insulin Hm [humuLIN 70/30 Kwikpen] 20 unit SQ AC-SUPPER #7 each 11/23/23 [Rx] Insulin NPH Hum/Reg Insulin Hm [humuLIN 70/30 Kwikpen] 30 unit SQ AC-BRKFST #7 each 11/23/23 [Rx] Potassium Chloride ER [K-Dur 20] 20 meq PO DAILY #60 tab 11/23/23 [Rx] Torsemide [Demadex] 40 mg PO DAILY #60 tab 11/23/23 [Rx] predniSONE [Deltasone] 20 mg PO DAILY #60 tab 11/23/23 [Rx] Follow up Appointment(s)/Referral(s): Jim Anderson MD [Primary Care Provider] - 1-2 days (Office is closed, please call to make follow up. ) [facility] [NON-STAFF] - Claudio,Macho, DO [STAFF PHYSICIAN] - 1 Week (Office is closed, please call to make follow up. ) Ambulatory/Diagnostic Orders: Basic Metabolic Panel [LAB.AMB] Time Frame: 3 Days, Location: None Selected Magnesium [LAB.AMB] Time Frame: 3 Days, Location: None Selected Patient Instructions/Handouts: Chronic Kidney Disease (DC), Hypoglycemia in a Person with Diabetes (DC), Diabetic Hyperglycemia (DC), Bacteremia (DC), Type 2 Diabetes in the Older Adult (DC), Diabetes and Nutrition (DC) Activity/Diet/Wound Care/Special Instructions: Please see your PCP and client service executive. Please get blood work completed in 3 days. Discharge/Stand Alone Forms: Who Do I Call?, Help In The Home, Personal Paper Inserter Discharge Disposition: HOME WITH HOME HEALTH SERVICES
[2023-11-23] MEDS: INSULIN ASPART (NovoLOG) 100 UNIT/ML VIAL SQ SCH (13:03)
[2023-11-23] MEDS: POTASSIUM CHLORIDE ER 20 MEQ TAB.ER PO STA (13:03)
[2023-11-23] MEDS: INSULIN DETEMIR (LEVEMIR) 100 UNIT/ML SYR SQ STA (13:04)
--- NOTE | 2023-11-23 13:42 | P.PN ---
Subjective Progress Note Date: 11/23/23 Principal diagnosis: Reason for follow-up is left lower extremity cellulitis and Serratia bacteremia Patient is a 73-year-old male with a past medical history significant for hypertension hyperlipidemia heart failure with renal disease, patient was brought into the hospital for evaluation of fall and laceration to the left chest wall, patient also have a chronic swelling to the left lower extremity more swelling to the left leg noticed to have Serratia marcescens bacteremia prompting this consultation. On today's evaluation that is 11/23/2023,the patient remains to be afebrile, patient is on room air not requiring supplemental oxygen and denies any shortness of breath no chest pain or cough.Patient denies having any nausea or vomiting, no abdominal pain and no diarrhea has been reported, denies pain to the left lower extremity mention feeling better wants to go home. Patient white count is 13.7, creatinine is 2.56 Objective - Vital Signs Vital signs: Vital Signs Temp 97.8 F 11/22/23 20:30 Pulse 95 11/23/23 04:30 Resp 16 11/23/23 04:30 BP 111/70 11/23/23 04:30 Pulse Ox 97 11/23/23 04:30 FiO2 Intake & Output 11/22/23 11/23/23 11/23/23 18:59 06:59 18:59 Intake Total 218 Output Total 500 500 Balance -282 -500 Weight 88.9 kg Intake: Intake, IV Titration 100 Amount Cefepime 1 gm In Sodium 100 Chloride 0.9% 50 ml @ 12. 5 mls/hr IVPB Q12HR [facility] Rx#:[id number] Oral 118 Output: Urine 500 500 Other: Voiding Method External Catheter External Catheter - Exam GENERAL DESCRIPTION: An elderly male lying in bed in no distress RESPIRATORY SYSTEM: Unlabored breathing , decreased breath sounds at bases HEART: S1 S2 regular rate and rhythm , ABDOMEN: Soft , no tenderness EXTREMITIES: Left leg redness has decreased in intensity no drainage Exam completed with the help of STAFF ENGINEER - Labs CBC & Chem 7: 11/23/23 07:59 11/23/23 07:59 Labs: Abnormal Lab Results - Last 24 Hours (Table) 11/22/23 11/22/23 11/22/23 Range/Units 07:27 07:27 11:25 WBC 15.3 H (3.8-10.6) k/uL RBC 3.76 L (4.30-5.90) m/uL Hgb 11.2 L (13.0-17.5) gm/dL Hct 33.4 L (39.0-53.0) % Neutrophils # 13.3 H (1.3-7.7) k/uL Sodium 136 L (137-145) mmol/L Potassium 3.3 L (3.5-5.1) mmol/L BUN 89 H (9-20) mg/dL Creatinine 2.39 H (0.66-1.25) mg/dL POC Glucose (mg/dL) 212 H (70-110) mg/dL 11/22/23 11/22/23 11/23/23 Range/Units 16:43 20:09 06:24 WBC (3.8-10.6) k/uL RBC (4.30-5.90) m/uL Hgb (13.0-17.5) gm/dL Hct (39.0-53.0) % Neutrophils # (1.3-7.7) k/uL Sodium (137-145) mmol/L Potassium (3.5-5.1) mmol/L BUN (9-20) mg/dL Creatinine (0.66-1.25) mg/dL POC Glucose (mg/dL) 380 H 345 H 263 H (70-110) mg/dL Microbiology - Last 24 Hours (Table) 11/17/23 19:40 Blood Culture - Final Blood Assessment and Plan (1) Left leg cellulitis Current Visit: Yes Status: Acute Code(s): L03.116 - CELLULITIS OF LEFT LOWER LIMB SNOMED Code(s): 42099755593292024 (2) Bacterial infection due to Serratia Current Visit: Yes Status: Acute Code(s): A49.8 - OTHER BACTERIAL INFECTIONS OF UNSPECIFIED SITE SNOMED Code(s): 53084623 (3) Bacteremia Current Visit: Yes Status: Acute Code(s): R78.81 - BACTEREMIA SNOMED Code(s): 5327695 Plan: 1patient with Serratia marcescens bacteremia in this patient presented to hospital with weakness fall noticed to have extensive cellulitis left lower extremity likely the source of this bacteremia patient chest x-ray report negative for acute infiltrate improvement soft on clinical examination urine has been negative 2-patient with underlying renal insufficiency and high risk of nephrotoxicity 3--blood culture repeat has been negative some of the elevated white count more likely related to the steroids as the patient has shown clinical improvement and will be able to finish therapy with oral Cipro discussed with the admitting team Dictation was produced using Etop[employer] software. please excuse any grammatical, word or spelling errors. Time with Patient: Less than 30
[2023-11-23 15:50] VITALS: RESP 16
[2023-11-23 16:38] VITALS: BP 126/72; PULSE 80; TEMP 97.8
[2023-11-23] MEDS ORDERED: MAGNESIUM OXIDE 400 MG TAB PO SCH (21:00)
[2023-11-24] MEDS ORDERED: INSULIN DETEMIR (LEVEMIR) 100 UNIT/ML SYR SQ SCH (07:00)
--- NOTE | 2023-11-27 14:00 | CDI ---
Documentation Clarification Form Date: 11/27/2023 01:50:11 PM From: Nicole Casey Phone: Admit Date: 11/17/2023 07:49:00 PM Patient Name: Nadeem Moreno Visit Number: [id number] Discharge Date: 11/23/2023 04:40:00 PM ATTENTION: The Clinical Documentation Specialists (CDI) and [facility] Coding Staff appreciate your assistance in clarifying documentation. Please respond to the clarification below the line at the bottom and electronically sign. The CDI & [facility] Coding staff will review the response and follow-up if needed. Please note: Queries are made part of the Legal Health Record. If you have any questions, please contact the author of this message via ITS. Dr. Rohit Pena Your patient has the documented diagnosis of unspecified CHF per ED Note. Additional information regarding the type of CHF is requested. History/Risk Factors: 73yo M, Sepsis w Serratia, LLE cellulitis, acutemetabolic encephalopathy, IDDMIIhyperglycemia, VANIA on CKD IIIB d/t crescenticglomerulonephritis, hypervolemia, hyponatremia, hypokalemia, hypomagnesemia, HTN, HLD, CAD Clinical Indicators: VS/Pulse OX: 96-100 Echocardiogram Results: LV ejection fraction 50-55%; moderatelydilatedleft atrium; Trace MR, MildAS, Nopericardial effusion Chest X Ray: No acute cardiopulmonary disease/process. Treatment: Nephrology started IV Lasix forvolume overload. In your professional opinion, can you please clarify the type of CHF if known? [ ] Chronic Systolic Heart Failure (reduced EF) [x ] Chronic Diastolic Heart Failure (preserved EF) [ ] Chronic Systolic & Diastolic Heart Failure [ ] Other, please specify [ ] Unable to determine (Template Last Revised: August 2020) MTDD
== END 2023-11-23 16:40 | disposition home health service (06) | DRG 871 ==
LOC: EC 16:16 → 3SCARD 19:49
PROVIDERS: ADMIT Student in an Organized Health Care Education/Training Program; ATTEND Student in an Organized Health Care Education/Training Program
DX: A41.53 Sepsis due to Serratia (principal); G93.41 Metabolic encephalopathy; N17.9 Acute kidney failure, unspecified; I42.9 Cardiomyopathy, unspecified; S21.112A Laceration without foreign body of left front wall of thorax without penetration into thoracic cavity, initial encounter; L03.116 Cellulitis of left lower limb; E87.1 Hypo-osmolality and hyponatremia; I50.32 Chronic diastolic (congestive) heart failure; E11.22 Type 2 diabetes mellitus with diabetic chronic kidney disease; I11.0 Hypertensive heart disease with heart failure; E11.65 Type 2 diabetes mellitus with hyperglycemia; Z79.4 Long term (current) use of insulin; N18.32 Chronic kidney disease, stage 3b; E87.8 Other disorders of electrolyte and fluid balance, not elsewhere classified; E78.5 Hyperlipidemia, unspecified; I25.10 Atherosclerotic heart disease of native coronary artery without angina pectoris; N05.7 Unspecified nephritic syndrome with diffuse crescentic glomerulonephritis; F17.210 Nicotine dependence, cigarettes, uncomplicated; E83.42 Hypomagnesemia; I49.3 Ventricular premature depolarization; I87.2 Venous insufficiency (chronic) (peripheral); M79.89 Other specified soft tissue disorders; T38.0X5A Adverse effect of glucocorticoids and synthetic analogues, initial encounter; E87.6 Hypokalemia; I35.0 Nonrheumatic aortic (valve) stenosis; R79.89 Other specified abnormal findings of blood chemistry; Z91.148 Patient's other noncompliance with medication regimen for other reason; T50.2X5A Adverse effect of carbonic-anhydrase inhibitors, benzothiadiazides and other diuretics, initial encounter; T50.916A Underdosing of multiple unspecified drugs, medicaments and biological substances, initial encounter; B96.89 Other specified bacterial agents as the cause of diseases classified elsewhere; W01.190A Fall on same level from slipping, tripping and stumbling with subsequent striking against furniture, initial encounter; Y92.008 Other place in unspecified non-institutional (private) residence as the place of occurrence of the external cause; Z79.82 Long term (current) use of aspirin; Z98.61 Coronary angioplasty status; Z79.899 Other long term (current) drug therapy; Z79.52 Long term (current) use of systemic steroids; I25.2 Old myocardial infarction
CPT/HCPCS: 36415; 71046; 80048; 80051; 80053; 81001; 82009; 82565; 82947; 83036; 83735; 84100; 84484; 84520; 85025; 87040; 87077; 87186; 93005; 93306; 96365; 96366; 96367; 96368; 96372; 99291

== ENCOUNTER 2023-12-17 14:02 | Inpatient (IN) | payer MEDICARE ==
[2023-12-17 14:08] LABS: Glucose,Whole Blood 259 mg/dL (70-110)
--- NOTE | 2023-12-17 15:25 | ED ---
General Adult HPI - General Chief complaint: Shortness of Breath Stated complaint: HTN Time Seen by Provider: 12/17/23 14:05 Source: patient, RN notes reviewed, old records reviewed Mode of arrival: wheelchair Limitations: no limitations - History of Present Illness Initial comments: This is a 73-year-old male with a past medical history significant for heart disease as well as kidney disease. Patient states his home health worker came over and saw him yesterday his sugar was elevated and so was his blood pressure so his primary medical care doctor today called him and told him to come to the emergency department. Patient denies any symptoms currently. Patient denies difficulty breathing shortness of breath. Patient has any chest pain. Patient has any recent fever chills or cough or patient has abdominal pain patient has nausea vomiting diarrhea. Patient states the edema bilateral his legs and though it looks bad he states is better than it has been. Patient states he does not feel as though he needs to be here. - Related Data Home Medications Medication Instructions Recorded Confirmed Acetaminophen Tab [Tylenol] 650 mg PO Q8H PRN 11/17/23 12/17/23 Calcium Acetate [PhosLo] 667 mg PO TID-W/MEALS 11/17/23 12/17/23 Magnesium Oxide [Mag-Ox] 400 mg PO DAILY 11/17/23 12/17/23 Metoprolol Tartrate [Lopressor] 50 mg PO BID-W/MEALS 11/17/23 12/17/23 Insulin NPH Hum/Reg Insulin Hm 10 unit SQ AC-SUPPER 12/17/23 12/17/23 [humuLIN 70/30 Kwikpen] Insulin NPH Hum/Reg Insulin Hm 20 unit SQ AC-BRKFST 12/17/23 12/17/23 [humuLIN 70/30 Kwikpen] Potassium Chloride ER [K-Dur 20] 40 meq PO DAILY 12/17/23 12/17/23 Torsemide [Demadex] 20 mg PO DAILY 12/17/23 12/17/23 predniSONE 50 mg PO DAILY 12/17/23 12/17/23 Previous Rx's Medication Instructions Recorded Atorvastatin [Lipitor] 40 mg PO HS #30 tab 08/17/20 Isosorbide Mononitrate ER [Imdur] 60 mg PO DAILY #30 tab.er.24h 08/17/20 Pantoprazole [Protonix] 40 mg PO DAILY 30 Days #30 tab 11/10/23 Aspirin 81 mg PO DAILY #60 tab 11/23/23 Ciprofloxacin HCl [Cipro] 500 mg PO Q12HR 10 Days #20 tab 11/23/23 Allergies Allergy/AdvReac Type Severity Reaction Status Date / Time No Known Allergies Allergy Verified 12/17/23 16:01 Review of Systems ROS Statement: Those systems with pertinent positive or pertinent negative responses have been documented in the HPI. ROS Other: All systems not noted in ROS Statement are negative. Past Medical History Past Medical History: Heart Failure, Hyperlipidemia, Hypertension, Renal Disease Additional Past Medical History / Comment(s): Cardiomyopathy, Last Myocardial Infarction Date:: 2022 History of Any Multi-Drug Resistant Organisms: None Reported Past Surgical History: No Surgical Hx Reported Past Anesthesia/Blood Transfusion Reactions: Unable to Obtain Additional Past Anesthesia/Blood Transfusion Reaction / Comment(s): Pt states he has never had surgery. Past Psychological History: No Psychological Hx Reported Smoking Status: Current every day smoker - Past Family History Father Family Medical History: Diabetes Mellitus, Myocardial Infarction (NM) Additional Family Medical History / Comment(s): Had leg amputation Mother History Unknown: Yes Family Medical History: No Reported History Sister(s) Family Medical History: Diabetes Mellitus Additional Family Medical History / Comment(s): 1 sister had arm amputated due to diabetes General Exam - General Exam Comments Initial Comments: GENERAL: Patient is well-developed and well-nourished. Patient is nontoxic and well- hydrated and is in no acute distress. ENT: Neck is soft and supple. No significant lymphadenopathy is noted. Oropharynx is clear. Moist mucous membranes. Neck has full range of motion without eliciting any pain. EYES: The sclera were anicteric and conjunctiva were pink and moist. Extraocular movements were intact and pupils were equal round and reactive to light. Eyelids were unremarkable. PULMONARY: Unlabored respirations. Good breath sounds bilaterally. No audible rales rhonchi or wheezing was noted. CARDIOVASCULAR: There is a regular rate and rhythm without any murmurs gallops or rubs. ABDOMEN: Soft and nontender with normal bowel sounds. SKIN: Skin is clear with no lesions or rashes and otherwise unremarkable. NEUROLOGIC: Patient is alert and oriented x3. Cranial nerves II through XII are grossly intact. Motor and sensory are also intact. Normal speech, volume and content. Symmetrical smile. MUSCULOSKELETAL: Normal extremities with adequate strength and full range of motion. 2+ edema bilaterally LYMPHATICS: No significant lymphadenopathy is noted PSYCHIATRIC: Normal psychiatric evaluation. Limitations: no limitations Course Vital Signs 12/17/23 12/17/23 12/17/23 14:03 15:10 18:25 Temperature 98.1 F Pulse Rate 103 H 70 84 Respiratory 16 18 18 Rate Blood Pressure 142/88 116/95 159/108 O2 Sat by Pulse 97 96 Oximetry Medical Decision Making - Medical Decision Making EKG is interpreted by myself. EKG shows a sinus rhythm at 102 bpm parables 120 ms. QRS is 77 QT interval is 342 QTc is 4 1. Patient's EKG shows no ST segment ovation or depression Was pt. sent in by a medical professional or institution (, [facility], SOFTLINES SUPERVISOR, urgent care, hospital, or fpc...) When possible be specific @ -Patient's primary medical care doctor sent the patient to the emergency department Did you speak to anyone other than the patient for history (EMS, parent, family, police, friend...)? What history was obtained from this source @ -No Did you review nursing and triage notes (agree or disagree)? Why? @ -I reviewed and agree with nursing and triage notes Were old charts reviewed (outside hosp., previous admission, EMS record, old EKG, old radiological studies, urgent care reports/EKG's, fpc records)? Report findings @ -No old charts were reviewed Differential Diagnosis (chest pain, altered mental status, abdominal pain women, abdominal pain men, vaginal bleeding, weakness, fever, dyspnea, syncope, headache, dizziness, GI bleed, back pain, seizure, CVA, palpatations, mental health, musculoskeletal)? @ -Not applicable EKG interpreted by me (3pts min.). @ -As above X-rays interpreted by me (1pt min.). @ -None done CT interpreted by me (1pt min.). @ -None done U/S interpreted by me (1pt. min.). @ -None done What testing was considered but not performed or refused? (CT, X-rays, U/S, labs)? Why? @ -None What meds were considered but not given or refused? Why? @ -None Did you discuss the management of the patient with other professionals (paula medeiros ilupe Tubbs, PA, SOFTLINES SUPERVISOR, lab, RT, psych nurse, family welfare social work professor, electrical technician, teacher, facilities officer, case briefer)? Give summary @ -I spoke with sound physicians he agreed admit the patient Was smoking cessation discussed for >3mins.? @ -No Was critical care preformed (if so, how long)? @ -No Were there social determinants of health that impacted care today? How? (Homelessness, low income, unemployed, alcoholism, drug addiction, transportation, low edu. Level, literacy, decrease access to med. care, [facility], rehab)? @ -No Was there de-escalation of care discussed even if they declined (Discuss DNR or withdrawal of care, Hospice)? DNR status @ -No What co-morbidities impacted this encounter? (DM, HTN, Smoking, COPD, CAD, Cancer, CVA, ARF, Chemo, Hep., AIDS, mental health diagnosis, sleep apnea, mor bid obesity)? @ -None Was patient admitted / discharged? Hospital course, mention meds given and rou te, prescriptions, significant lab abnormalities, going to OR and other pertinent info. @ -Patient remained asymptomatic during emergency department. Patient had a magnesium 1.9 I gave the patient 2 g of magnesium sulfate. Patient's troponin was also mildly elevated BNP was elevated and white count was elevated. Some of which she has been similar in the past when I compare to previous visits. Patient's legs are edematous and they need to be diuresed. Undiagnosed new problem with uncertain prognosis? @ -No Drug Therapy requiring intensive monitoring for toxicity (Heparin, Nitro, Insulin, Cardizem)? @ -No Were any procedures done? @ -No Diagnosis/symptom? @ -Elevated troponin Acute, or Chronic, or Acute on Chronic? @ -Acute Uncomplicated (without systemic symptoms) or Complicated (systemic symptoms)? @ -Complicated Side effects of treatment? @ -No Exacerbation, Progression, or Severe Exacerbation? @ -No Poses a threat to life or bodily function? How? (Chest pain, USA, NM, pneumonia, PE, COPD, DKA, ARF, appy, cholecystitis, CVA, Diverticulitis, Homicidal, Suicidal, threat to staff... and all critical care pts) @ -Yes this could lead to an NM and endorgan dysfunction Diagnosis/symptom? @ -Hypomagnesemia Acute, or Chronic, or Acute on Chronic? @ -Acute Uncomplicated (without systemic symptoms) or Complicated (systemic symptoms)? @ -Complicated Side effects of treatment? @ -None Exacerbation, Progression, or Severe Exacerbation] @ -No Poses a threat to life or bodily function? @ -No Diagnosis/symptom? @ -Peripheral edema Acute, or Chronic, or Acute on Chronic? @ -Acute Uncomplicated (without systemic symptoms) or Complicated (systemic symptoms)? @ -Complicated Side effects of treatment? @ -None Exacerbation, Progression, or Severe Exacerbation] @ -No Poses a threat to life or bodily function? @ -No - Lab Data Result diagrams: 12/17/23 15:27 12/17/23 15:27 Lab Results 12/17/23 12/17/23 12/17/23 Range/Units 14:05 15:27 15:27 WBC 18.2 H (3.8-10.6) k/uL RBC 3.66 L (4.30-5.90) m/uL Hgb 11.2 L (13.0-17.5) gm/dL Hct 33.1 L (39.0-53.0) % MCV 90.3 (80.0-100.0) fL MCH 30.7 (25.0-35.0) pg MCHC 34.0 (31.0-37.0) g/dL RDW 15.3 (11.5-15.5) % Plt Count 231 (150-450) k/uL MPV 8.5 Neutrophils % 86 % Lymphocytes % 6 % Monocytes % 7 % Eosinophils % 1 % Basophils % 0 % Neutrophils # 15.6 H (1.3-7.7) k/uL Lymphocytes # 1.1 (1.0-4.8) k/uL Monocytes # 1.2 H (0-1.0) k/uL Eosinophils # 0.1 (0-0.7) k/uL Basophils # 0.1 (0-0.2) k/uL PT 10.6 (10.0-12.5) sec INR 1.0 (<1.2) APTT 19.9 L (22.0-30.0) sec Sodium (137-145) mmol/L Potassium (3.5-5.1) mmol/L Chloride (98-107) mmol/L Carbon Dioxide (22-30) mmol/L Anion Gap mmol/L BUN (9-20) mg/dL Creatinine (0.66-1.25) mg/dL Est GFR (CKD-EPI)AfAm (>60 ml/min/1.73 sqM) Est GFR (CKD-EPI)NonAf (>60 ml/min/1.73 sqM) Glucose (74-99) mg/dL POC Glucose (mg/dL) 259 H (70-110) mg/dL POC Glu Chemistry Quality Control Analyst ID Shannan Eubanks Lactic Ac Sepsis Rflx Plasma Lactic Acid Andrea (0.7-2.0) mmol/L Calcium (8.4-10.2) mg/dL Magnesium (1.6-2.3) mg/dL Total Bilirubin (0.2-1.3) mg/dL AST (17-59) U/L ALT (4-49) U/L Alkaline Phosphatase (38-126) U/L Troponin I (0.000-0.034) ng/mL NT-Pro-B Natriuret Pep pg/mL Total Protein (6.3-8.2) g/dL Albumin (3.5-5.0) g/dL 12/17/23 12/17/23 12/17/23 Range/Units 15:27 15:27 15:27 WBC (3.8-10.6) k/uL RBC (4.30-5.90) m/uL Hgb (13.0-17.5) gm/dL Hct (39.0-53.0) % MCV (80.0-100.0) fL MCH (25.0-35.0) pg MCHC (31.0-37.0) g/dL RDW (11.5-15.5) % Plt Count (150-450) k/uL MPV Neutrophils % % Lymphocytes % % Monocytes % % Eosinophils % % Basophils % % Neutrophils # (1.3-7.7) k/uL Lymphocytes # (1.0-4.8) k/uL Monocytes # (0-1.0) k/uL Eosinophils # (0-0.7) k/uL Basophils # (0-0.2) k/uL PT (10.0-12.5) sec INR (<1.2) APTT (22.0-30.0) sec Sodium 135 L (137-145) mmol/L Potassium 4.3 (3.5-5.1) mmol/L Chloride 102 (98-107) mmol/L Carbon Dioxide 23 (22-30) mmol/L Anion Gap 10 mmol/L BUN 100 H (9-20) mg/dL Creatinine 2.38 H (0.66-1.25) mg/dL Est GFR (CKD-EPI)AfAm 30 (>60 ml/min/1.73 sqM) Est GFR (CKD-EPI)NonAf 26 (>60 ml/min/1.73 sqM) Glucose 244 H (74-99) mg/dL POC Glucose (mg/dL) (70-110) mg/dL POC Glu Chemistry Quality Control Analyst ID Lactic Ac Sepsis Rflx Plasma Lactic Acid Andrea 2.6 H* (0.7-2.0) mmol/L Calcium 7.0 L (8.4-10.2) mg/dL Magnesium 0.9 L* (1.6-2.3) mg/dL Total Bilirubin 0.4 (0.2-1.3) mg/dL AST 31 (17-59) U/L ALT 37 (4-49) U/L Alkaline Phosphatase 106 (38-126) U/L Troponin I 0.113 H* (0.000-0.034) ng/mL NT-Pro-B Natriuret Pep 6940 pg/mL Total Protein 5.8 L (6.3-8.2) g/dL Albumin 3.3 L (3.5-5.0) g/dL 12/17/23 Range/Units 16:31 WBC (3.8-10.6) k/uL RBC (4.30-5.90) m/uL Hgb (13.0-17.5) gm/dL Hct (39.0-53.0) % MCV (80.0-100.0) fL MCH (25.0-35.0) pg MCHC (31.0-37.0) g/dL RDW (11.5-15.5) % Plt Count (150-450) k/uL MPV Neutrophils % % Lymphocytes % % Monocytes % % Eosinophils % % Basophils % % Neutrophils # (1.3-7.7) k/uL Lymphocytes # (1.0-4.8) k/uL Monocytes # (0-1.0) k/uL Eosinophils # (0-0.7) k/uL Basophils # (0-0.2) k/uL PT (10.0-12.5) sec INR (<1.2) APTT (22.0-30.0) sec Sodium (137-145) mmol/L Potassium (3.5-5.1) mmol/L Chloride (98-107) mmol/L Carbon Dioxide (22-30) mmol/L Anion Gap mmol/L BUN (9-20) mg/dL Creatinine (0.66-1.25) mg/dL Est GFR (CKD-EPI)AfAm (>60 ml/min/1.73 sqM) Est GFR (CKD-EPI)NonAf (>60 ml/min/1.73 sqM) Glucose (74-99) mg/dL POC Glucose (mg/dL) (70-110) mg/dL POC Glu Chemistry Quality Control Analyst ID Lactic Ac Sepsis Rflx Y Plasma Lactic Acid Andrea (0.7-2.0) mmol/L Calcium (8.4-10.2) mg/dL Magnesium (1.6-2.3) mg/dL Total Bilirubin (0.2-1.3) mg/dL AST (17-59) U/L ALT (4-49) U/L Alkaline Phosphatase (38-126) U/L Troponin I (0.000-0.034) ng/mL NT-Pro-B Natriuret Pep pg/mL Total Protein (6.3-8.2) g/dL Albumin (3.5-5.0) g/dL Disposition Clinical Impression: Peripheral edema, Elevated troponin, Hypomagnesemia, Leukocytosis Disposition: ADMITTED IP TO THIS HOSP Referrals: Jim Anderson MD [Primary Care Provider] - 1-2 days Time of Disposition: 19:01
[2023-12-17 15:41] LABS: Basophils # (A) 0.1 k/uL (0-0.2); Basophils % (A) 0 %; Eosinophils # (A) 0.1 k/uL (0-0.7); Eosinophils % (A) 1 %; HCT 33.1 % (39.0-53.0); HGB 11.2 gm/dL (13.0-17.5); Lymphocytes # (A) 1.1 k/uL (1.0-4.8); Lymphocytes % (A) 6 %; MCH 30.7 pg (25.0-35.0); MCV 90.3 fL (80.0-100.0); Mean Platelet Volume 8.5; Monocytes # (A) 1.2 k/uL (0-1.0); Monocytes % (A) 7 %; Neutrophils # (A) 15.6 k/uL (1.3-7.7); Neutrophils % (A) 86 %; Platelet Count 231 k/uL (150-450); RBC 3.66 m/uL (4.30-5.90); RDW 15.3 % (11.5-15.5); WBC 18.2 k/uL (3.8-10.6)
[2023-12-17 15:54] LABS: ALT 37 U/L (4-49); AST 31 U/L (17-59); African American GFR (CKD) 30 (>60 ml/min/1.73 sqM); Albumin 3.3 g/dL (3.5-5.0); Alkaline Phosphatase 106 U/L (38-126); Anion Gap 10 mmol/L; Blood Urea Nitrogen 100 mg/dL (9-20); Carbon Dioxide 23 mmol/L (22-30); Chloride 102 mmol/L (98-107); Glucose 244 mg/dL (74-99); Non-African American GFR(CKD) 26 (>60 ml/min/1.73 sqM); Potassium 4.3 mmol/L (3.5-5.1); Sodium 135 mmol/L (137-145); Total Bilirubin 0.4 mg/dL (0.2-1.3); Total Protein 5.8 g/dL (6.3-8.2)
[2023-12-17 15:59] LABS: Prothrombin Time 10.6 sec (10.0-12.5)
[2023-12-17 16:00] LABS: NT-Pro-B-Type Natriuretic Pept 6940 pg/mL
[2023-12-17 16:15] LABS: Partial Thromboplastin Time 19.9 sec (22.0-30.0)
[2023-12-17 16:31] LABS: Magnesium 0.9 mg/dL (1.6-2.3)
[2023-12-17] MEDS: MAGNESIUM SULFATE-D5W PMX 1 GM in DEXTROSE/WATER 1 100ML.BAG IVPB SCH (18:21)
--- NOTE | 2023-12-17 18:41 | XR ---
EXAMINATION TYPE: XR chest 2V DATE OF EXAM: 12/17/2023 COMPARISON: 11/17/2023 INDICATION: Difficulty breathing TECHNIQUE: Frontal and lateral views of the chest are obtained. FINDINGS: The heart size is normal. The pulmonary vasculature is normal. The lungs are clear. IMPRESSION: 1. No acute pulmonary process.
[2023-12-18] MEDS: hydrALAZINE HCL 25 MG TAB PO STA (01:33)
--- NOTE | 2023-12-18 05:13 | P.HPIM ---
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 The patient had no active complaints at the time of interview and states that he was advised to go to the hospital after he was noted to have blood glucose in the 200s by the visiting nurse and that he was not acting quite like himself. Patient reports chronic lower extremity edema which has been unchanged for the past several months. Patient denied experiencing chest discomfort, shortness of breath, fever, chills, cough, hina sea, vomiting, abdominal pain, diarrhea Chest x-ray in the emergency room was unremarkable. EKG revealed sinus rhythm at [address]/T wave changes noted as reviewed by me. Laboratory evalua tion was remarkable for lactic acid 3.2, magnesium 0.9, troponin 0.115, WBC count 18.2, hemoglobin 11.2, sodium 135, BUN 100 with creatinine 2.38 (at baseline). ED documentation reviewed and case discussed with ED provider. Review of systems: Pertinent positives and negatives as discussed in HPI, a complete review of systems was performed and all other systems are negative. Physical examination: Vital signs reviewed General: non toxic, no distress, appears at stated age, overweight Derm: Scrotal candidiasis with surrounding erythema noted, warm Head: atraumatic, normocephalic, symmetric Eyes: EOMI, no lid lag, anicteric sclera, pupils equal round reactive to light ENT: Nose and ears atraumatic Neck: No cervical lymphadenopathy, trachea midline, supple Mouth: no lip lesion, mucus membranes moist Cardiovascular: S1S2 reg, no murmur, positive dorsalis pedis pulse bilateral, 2+ bilateral lower extremity pitting edema Lungs: CTA bilateral, no rhonchi, no rales, no accessory muscle use Abdominal: soft, nontender to palpation, no guarding Ext: muscle strength 5 out of 5 in all 4 extremities grossly, no gross muscle atrophy, no contractures, Neuro: CN II-XI grossly intact, no gross focal neuro deficits Psych: Alert, oriented, appropriate affect Assessment: Lactic acidosis Elevated troponin, similar to baseline Hypomagnesemia Fluid overload CKD stage III with crescentic glomerulonephritis Chronic conditions: Type II DM, hypertension, hyperlipidemia, CAD Imaging: Chest x-ray in the emergency room was unremarkable. EKG revealed sinus rhythm at [address]/T wave changes noted as reviewed by me. Data Review: Laboratory evaluation was remarkable for lactic acid 3.2, magnesium 0.9, troponin 0.115, WBC count 18.2, hemoglobin 11.2, sodium 135, BUN 100 with creatinine 2.38 (at baseline). Plan: Monitor lactic acid levels for resolution Nephrology consulted in light of fluid overload with CKD Continue with home diuretic dose Status post 500 mL bolus Replace magnesium and monitor for resolution Blood glucose monitoring Resume home medications once reconciled Nystatin ointment for scrotal candidiasis DVT prophylaxis: Lovenox subcu The patient is admitted with an anticipated greater than 2 midnight stay for evaluation of fluid overload CODE STATUS: Full Code Discussed with: Patient Anticipated discharge place: Home Past Medical History Past Medical History: Heart Failure, Diabetes Mellitus, Hyperlipidemia, Hyper tension, Renal Disease Additional Past Medical History / Comment(s): Cardiomyopathy, 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 Past Psychological History: No Psychological Hx Reported Additional Psychological History / Comment(s): Pt resides with his significant other. He is independent. Smoking Status: Former smoker Past Alcohol Use History: Rare Past Drug Use History: Marijuana Additional Drug Use History / Comment(s): Pt states he smokes 5-6 marijuana joints per day. - Past Family History Father Family Medical History: Diabetes Mellitus, Myocardial Infarction (ID) Additional Family Medical History / Comment(s): Had leg amputation Mother History Unknown: Yes Family Medical History: No Reported History Sister(s) Family Medical History: Diabetes Mellitus Additional Family Medical History / Comment(s): 1 sister had arm amputated due to diabetes Medications and Allergies Home Medications Medication Instructions Recorded Confirmed Type Atorvastatin [Lipitor] 40 mg PO HS #30 tab 08/17/20 12/17/23 Rx Isosorbide Mononitrate ER [Imdur] 60 mg PO DAILY #30 tab.er.24h 08/17/20 12/17/23 Rx Pantoprazole [Protonix] 40 mg PO DAILY 30 Days #30 tab 05/10/23 12/17/23 Rx Acetaminophen Tab [Tylenol] 650 mg PO Q8H PRN 11/17/23 12/17/23 History Calcium Acetate [PhosLo] 667 mg PO TID-W/MEALS 11/17/23 12/17/23 History Magnesium Oxide [Mag-Ox] 400 mg PO DAILY 11/17/23 12/17/23 History Metoprolol Tartrate [Lopressor] 50 mg PO BID-W/MEALS 11/17/23 12/17/23 History Aspirin 81 mg PO DAILY #60 tab 11/23/23 12/17/23 Rx Ciprofloxacin HCl [Cipro] 500 mg PO Q12HR 10 Days #20 tab 11/23/23 12/17/23 Rx Insulin NPH Hum/Reg Insulin Hm 10 unit SQ AC-SUPPER 12/17/23 12/17/23 History [humuLIN 70/30 Kwikpen] Insulin NPH Hum/Reg Insulin Hm 20 unit SQ AC-BRKFST 12/17/23 12/17/23 History [humuLIN 70/30 Kwikpen] Potassium Chloride ER [K-Dur 20] 40 meq PO DAILY 12/17/23 12/17/23 History Torsemide [Demadex] 20 mg PO DAILY 12/17/23 12/17/23 History predniSONE 50 mg PO DAILY 12/17/23 12/17/23 History Allergies Allergy/AdvReac Type Severity Reaction Status Date / Time No Known Allergies Allergy Verified 12/17/23 16:01 Physical Exam Vitals: Vital Signs Temp Pulse Resp BP Pulse Ox 12/18/23 01:51 78 18 172/98 95 12/18/23 00:39 65 18 187/112 96 12/17/23 18:25 84 18 159/108 12/17/23 15:10 70 18 116/95 96 12/17/23 14:03 98.1 F 103 H 16 142/88 97 Intake and Output 12/17/23 12/17/23 12/18/23 14:59 22:59 06:59 Other: Weight 86.183 kg 86.183 kg Results CBC & Chem 7: 12/17/23 15:27 12/17/23 15:27 Labs: Abnormal Lab Results - Last 24 Hours (Table) 12/17/23 12/17/23 12/17/23 Range/Units 14:05 15:27 15:27 WBC 18.2 H (3.8-10.6) k/uL RBC 3.66 L (4.30-5.90) m/uL Hgb 11.2 L (13.0-17.5) gm/dL Hct 33.1 L (39.0-53.0) % Neutrophils # 15.6 H (1.3-7.7) k/uL Monocytes # 1.2 H (0-1.0) k/uL APTT 19.9 L (22.0-30.0) sec Sodium (137-145) mmol/L BUN (9-20) mg/dL Creatinine (0.66-1.25) mg/dL Glucose (74-99) mg/dL POC Glucose (mg/dL) 259 H (70-110) mg/dL Plasma Lactic Acid Andrea (0.7-2.0) mmol/L Calcium (8.4-10.2) mg/dL Magnesium (1.6-2.3) mg/dL Troponin I (0.000-0.034) ng/mL Total Protein (6.3-8.2) g/dL Albumin (3.5-5.0) g/dL 12/17/23 12/17/23 12/17/23 Range/Units 15:27 15:27 15:27 WBC (3.8-10.6) k/uL RBC (4.30-5.90) m/uL Hgb (13.0-17.5) gm/dL Hct (39.0-53.0) % Neutrophils # (1.3-7.7) k/uL Monocytes # (0-1.0) k/uL APTT (22.0-30.0) sec Sodium 135 L (137-145) mmol/L BUN 100 H (9-20) mg/dL Creatinine 2.38 H (0.66-1.25) mg/dL Glucose 244 H (74-99) mg/dL POC Glucose (mg/dL) (70-110) mg/dL Plasma Lactic Acid Andrea 2.6 H* (0.7-2.0) mmol/L Calcium 7.0 L (8.4-10.2) mg/dL Magnesium 0.9 L* (1.6-2.3) mg/dL Troponin I 0.113 H* (0.000-0.034) ng/mL Total Protein 5.8 L (6.3-8.2) g/dL Albumin 3.3 L (3.5-5.0) g/dL 12/17/23 12/17/23 12/17/23 Range/Units 19:25 19:25 22:27 WBC (3.8-10.6) k/uL RBC (4.30-5.90) m/uL Hgb (13.0-17.5) gm/dL Hct (39.0-53.0) % Neutrophils # (1.3-7.7) k/uL Monocytes # (0-1.0) k/uL APTT (22.0-30.0) sec Sodium (137-145) mmol/L BUN (9-20) mg/dL Creatinine (0.66-1.25) mg/dL Glucose (74-99) mg/dL POC Glucose (mg/dL) (70-110) mg/dL Plasma Lactic Acid Andrea 3.3 H* 3.2 H* (0.7-2.0) mmol/L Calcium (8.4-10.2) mg/dL Magnesium (1.6-2.3) mg/dL Troponin I 0.115 H* (0.000-0.034) ng/mL Total Protein (6.3-8.2) g/dL Albumin (3.5-5.0) g/dL 12/18/23 12/18/23 Range/Units 01:54 01:54 WBC (3.8-10.6) k/uL RBC (4.30-5.90) m/uL Hgb (13.0-17.5) gm/dL Hct (39.0-53.0) % Neutrophils # (1.3-7.7) k/uL Monocytes # (0-1.0) k/uL APTT (22.0-30.0) sec Sodium (137-145) mmol/L BUN (9-20) mg/dL Creatinine (0.66-1.25) mg/dL Glucose (74-99) mg/dL POC Glucose (mg/dL) (70-110) mg/dL Plasma Lactic Acid Andrea 3.4 H* (0.7-2.0) mmol/L Calcium (8.4-10.2) mg/dL Magnesium (1.6-2.3) mg/dL Troponin I 0.134 H* (0.000-0.034) ng/mL Total Protein (6.3-8.2) g/dL Albumin (3.5-5.0) g/dL Thrombosis Risk Factor Assmnt - Choose All That Apply Any of the Below Risk Factors Present?: Yes Each Factor Represents 1 point: Obesity (BMI >25), Swollen legs (current) Each Risk Factor Represents 2 Points: Age 61-74 years Thrombosis Risk Factor Assessment Total Risk Factor Score: 4 Thrombosis Risk Factor Assessment Level: Moderate Risk
[2023-12-18] MEDS: MAGNESIUM SULFATE-D5W PMX 1 GM in DEXTROSE/WATER 1 100ML.BAG IVPB SCH (05:58)
[2023-12-18] MEDS: SODIUM CHLORIDE 0.9% 500 ML 500 ML IV ONE (06:06)
[2023-12-18 06:19] LABS: Glucose,Whole Blood 290 mg/dL (70-110)
[2023-12-18 08:42] LABS: Glucose,Whole Blood 287 mg/dL (70-110)
[2023-12-18] MEDS: predniSONE 50 MG TAB PO SCH (08:54)
[2023-12-18] MEDS: PANTOPRAZOLE 40 MG TABLET PO SCH (08:54)
[2023-12-18] MEDS: INSULIN ASPART (NovoLOG) 100 UNIT/ML VIAL SQ SCH (08:54)
[2023-12-18] MEDS: CALCIUM ACETATE 667 MG TAB PO SCH (08:55)
[2023-12-18] MEDS: ASPIRIN 81 MG PO SCH (08:55)
[2023-12-18] MEDS: HEPARIN SODIUM,PORCINE 5,000 UNIT/ML 1 ML VIAL SQ SCH (08:55)
[2023-12-18] MEDS: TORSEMIDE 20 MG TAB PO SCH (08:55)
[2023-12-18] MEDS: METOPROLOL TARTRATE 50 MG TAB PO SCH (08:55)
[2023-12-18] MEDS: MAGNESIUM OXIDE 400 MG TAB PO SCH ×2 (08:55→20:51)
[2023-12-18] MEDS: POTASSIUM CHLORIDE ER 20 MEQ TAB.ER PO SCH (08:56)
[2023-12-18] MEDS ORDERED: ENOXAPARIN 40 MG/0.4 ML SYRINGE SQ SCH (09:00)
[2023-12-18] MEDS: INSULIN DETEMIR (LEVEMIR) 100 UNIT/ML SYR SQ STA (09:07)
[2023-12-18] MEDS: ISOSORBIDE MONONITRATE ER 60 MG TAB.ER.24H PO SCH (09:07)
[2023-12-18] MEDS: NYSTATIN 100,000 UNIT/GM OINT 30 GM TUBE TOPICAL SCH (09:08)
[2023-12-18 10:02] LABS: HGB 12.2 gm/dL (13.0-17.5); MCH 30.4 pg (25.0-35.0); MCHC 32.9 g/dL (31.0-37.0); MCV 92.4 fL (80.0-100.0); Mean Platelet Volume 8.3; Platelet Count 247 k/uL (150-450); RBC 4.01 m/uL (4.30-5.90); WBC 13.8 k/uL (3.8-10.6)
[2023-12-18 10:24] LABS: African American GFR (CKD) 30 (>60 ml/min/1.73 sqM); Anion Gap 10 mmol/L; Blood Urea Nitrogen 94 mg/dL (9-20); Calcium 7.7 mg/dL (8.4-10.2); Carbon Dioxide 28 mmol/L (22-30); Chloride 100 mmol/L (98-107); Glucose 232 mg/dL (74-99); Magnesium 1.8 mg/dL (1.6-2.3); Non-African American GFR(CKD) 26 (>60 ml/min/1.73 sqM); Potassium 4.1 mmol/L (3.5-5.1); Sodium 138 mmol/L (137-145)
[2023-12-18 11:34] LABS: Glucose,Whole Blood 379 mg/dL (70-110)
--- NOTE | 2023-12-18 12:12 | P.NPCON ---
History of Present Illness - Reason for Consult chronic renal failure - History of Present Illness Reason for consultation: Chronic kidney disease History of present illness: Patient is a 73-year-old male seen in renal consultation for chronic kidney disease. Patient was seen and examined in the emergency room. Patient has history of chronic kidney disease stage IIIb/IV with baseline creatinine 2-2.5 secondary to biopsy-proven concentric glomerulonephritis. Patient has received 2 doses of rituximab with second dose given October 16, 2023. He is also been maintained on prednisone for a few months now. The dose of prednisone was cut to 20 mg but patient continues to take 50 mg daily at home. Patient states he was advised to go to the hospital because his primary care physician told him to. Patient was noted to have elevated blood pressures and high blood sugars in the 200s at home. He denies chest pain or shortness of breath. No vomiting or diarrhea. No gross hematuria or dysuria. Patient does have longstanding history of diabetes. Patient has history of diastolic CHF and is maintained on torsemide outpatient. Patient has also had multiple infections recently including cellulitis and bacteremia. Denies fever or chills. Vital signs are stable. General: No acute distress. HEENT: Head exam is unremarkable. LUNGS: No audible rhonchi or wheezes. HEART: Rate and Rhythm are regular. ABDOMEN: Nontender. EXTREMITITES: 1+ edema. 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 Past Psychological History: No Psychological Hx Reported Additional Psychological History / Comment(s): Pt resides with his significant other. He is independent. Smoking Status: Former smoker Past Alcohol Use History: Rare Past Drug Use History: Marijuana Additional Drug Use History / Comment(s): Pt states he smokes 5-6 marijuana joints per day. - Past Family History Father Family Medical History: Diabetes Mellitus, Myocardial Infarction ([place]) Additional Family Medical History / Comment(s): Had leg amputation Mother History Unknown: Yes Family Medical History: No Reported History Sister(s) Family Medical History: Diabetes Mellitus Additional Family Medical History / Comment(s): 1 sister had arm amputated due to diabetes Medications and Allergies Home Medications Medication Instructions Recorded Confirmed Type Atorvastatin [Lipitor] 40 mg PO HS #30 tab 08/17/20 12/17/23 Rx Isosorbide Mononitrate ER [Imdur] 60 mg PO DAILY #30 tab.er.24h 08/17/20 12/17/23 Rx Pantoprazole [Protonix] 40 mg PO DAILY 30 Days #30 tab 05/10/23 12/17/23 Rx Acetaminophen Tab [Tylenol] 650 mg PO Q8H PRN 11/17/23 12/17/23 History Calcium Acetate [PhosLo] 667 mg PO TID-W/MEALS 11/17/23 12/17/23 History Magnesium Oxide [Mag-Ox] 400 mg PO DAILY 11/17/23 12/17/23 History Metoprolol Tartrate [Lopressor] 50 mg PO BID-W/MEALS 11/17/23 12/17/23 History Aspirin 81 mg PO DAILY #60 tab 11/23/23 12/17/23 Rx Ciprofloxacin HCl [Cipro] 500 mg PO Q12HR 10 Days #20 tab 11/23/23 12/17/23 Rx Insulin NPH Hum/Reg Insulin Hm 10 unit SQ AC-SUPPER 12/17/23 12/17/23 History [humuLIN 70/30 Kwikpen] Insulin NPH Hum/Reg Insulin Hm 20 unit SQ AC-BRKFST 12/17/23 12/17/23 History [humuLIN 70/30 Kwikpen] Potassium Chloride ER [K-Dur 20] 40 meq PO DAILY 12/17/23 12/17/23 History Torsemide [Demadex] 20 mg PO DAILY 12/17/23 12/17/23 History predniSONE 50 mg PO DAILY 12/17/23 12/17/23 History Allergies Allergy/AdvReac Type Severity Reaction Status Date / Time No Known Allergies Allergy Verified 12/17/23 16:01 Physical Exam Vitals: Vital Signs Temp Pulse Resp BP Pulse Ox 12/18/23 05:52 85 16 182/116 99 12/18/23 01:51 78 18 172/98 95 12/18/23 00:39 65 18 187/112 96 12/17/23 18:25 84 18 159/108 12/17/23 15:10 70 18 116/95 96 12/17/23 14:03 98.1 F 103 H 16 142/88 97 Intake and Output 12/17/23 12/18/23 12/18/23 22:59 06:59 14:59 Other: Weight 86.183 kg Results - Lab Results Most recent lab results Calcium 7.7 mg/dL (8.4-10.2) L 12/18/23 09:24 Magnesium 1.8 mg/dL (1.6-2.3) 12/18/23 09:24 12/18/23 09:24 12/18/23 09:24 Assessment and Plan Plan: Assessment: 1. 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 Patient has received 2 doses of rituximab with last dose being October 16, 2023. Further doses have been held due to recurrent infections. He is also maintained on prednisone. 2. Hypertension with chronic kidney disease. Exacerbated by steroids. 3. Diabetes mellitus. Exacerbated by steroids. 4. Chronic diastolic CHF. 5. Hypomagnesemia secondary to diuretic use. Replaced. Improved. Plan: Maintain torsemide. Encouraged oral intake. Decrease dose of prednisone to 20 mg daily. It was again stressed with the patient and also discussed with his to cut the dose down to 20 mg once daily. Patient will finish the course of rituximab outpatient once infection free. Avoid nephrotoxins. Continue to monitor renal function and urine output. Maintain PPI. Increase oral magnesium oxide frequency to twice daily. Add amlodipine. Patient had an appointment to see us in the office today. This will be rescheduled. Thank you for the consultation. I will continue to follow the patient with you during his hospital stay.
[2023-12-18] MEDS: amLODIPine 5 MG TAB PO SCH (13:03)
--- NOTE | 2023-12-18 13:07 | P.PN ---
Subjective Progress Note Date: 12/18/23 Hospital Course: 73-year-old male with history of CKD stage III secondary to crescentic glomeru lonephritis, type II DM, hypertension, hyperlipidemia, CAD, presenting after told by his PCP that his blood pressure was elevated in the 200s. Chest x-ray in the emergency room was unremarkable. EKG revealed sinus rhythm at [address]/T wave changes noted. Vital signs significant for hypertension. Patient was on room air. Laboratory evaluation was remarkable for lactic acid 3.2, magnesium 0.9, troponin 0.115, WBC count 18.2, hemoglobin 11.2, sodium 135, BUN 100 with creatinine 2.38 (at baseline). Nephrology and cardiology consulted. Subjective: Patient seen and examined at bedside. No acute events overnight. Pertinent positives and negatives as discussed above, a complete review of systems was performed and all other systems are negative. Vitals Signs Reviewed. General: Nontoxic, no distress, appears at stated age Derm: Warm, dry Head: Atraumatic, normocephalic, symmetric Eyes: EOMI, no lid lag, anicteric sclera Mouth: No lip lesion, mucus membranes moist Cardiovascular: S1S2 reg, systolic murmur Lungs: CTA bilateral, no rhonchi, no rales, no accessory muscle use Abdominal: Soft, nontender to palpation, no guarding, no appreciable organomegaly Ext: No gross muscle atrophy, plus pitting edema, no contractures Neuro: CN II-XI grossly intact, no focal neuro deficits Psych: Alert, oriented, appropriate affect Data Reviewed Today: Pertinent Labs: WBC 13.8, hemoglobin 12.2, creatinine 2.41, blood sugars range between 3 32-3 79, lactate 3.1, magnesium 1.8 Imaging: No new imaging Assessment and Plan: Active: CKD stage III with mesenteric glomerulonephritis Hypertension Elevated troponin Hypervolemia Lactic acidosis -Nephrology note reviewed, maintain home torsemide at 20 mg daily, prednisone decreased to 20 mg daily, hydralazine 10 IV every 6 hours as needed for high blood pressure, added amlodipine 5 mg daily, continue metoprolol 50 twice daily, Imdur 60 daily -Troponin elevated in the setting of chronic kidney disease -Lactic acidosis likely type II Insulin-dependent diabetes -Continue Levemir 20 units daily -Sliding scale insulin, monitor for hypoglycemia Chronic: Dyslipidemia CAD DVT ppx: Subcu heparin Code status: full code Anticipated discharge place: pending clinical course Anticipated discharge time: pending clinical course Objective - Vital Signs Vital signs: Vital Signs Temp 98.1 F 12/17/23 14:03 Pulse 85 12/18/23 05:52 Resp 16 12/18/23 05:52 BP 182/116 12/18/23 05:52 Pulse Ox 99 12/18/23 05:52 FiO2 Intake & Output 12/17/23 12/18/23 12/18/23 18:59 06:59 18:59 Weight 86.183 kg 86.183 kg - Labs CBC & Chem 7: 12/18/23 09:24 12/18/23 09:24 Labs: Abnormal Lab Results - Last 24 Hours (Table) 12/17/23 12/17/23 12/17/23 Range/Units 14:05 15:27 15:27 WBC 18.2 H (3.8-10.6) k/uL RBC 3.66 L (4.30-5.90) m/uL Hgb 11.2 L (13.0-17.5) gm/dL Hct 33.1 L (39.0-53.0) % Neutrophils # 15.6 H (1.3-7.7) k/uL Monocytes # 1.2 H (0-1.0) k/uL APTT 19.9 L (22.0-30.0) sec Sodium (137-145) mmol/L BUN (9-20) mg/dL Creatinine (0.66-1.25) mg/dL Glucose (74-99) mg/dL POC Glucose (mg/dL) 259 H (70-110) mg/dL Plasma Lactic Acid Andrea (0.7-2.0) mmol/L Calcium (8.4-10.2) mg/dL Magnesium (1.6-2.3) mg/dL Troponin I (0.000-0.034) ng/mL Total Protein (6.3-8.2) g/dL Albumin (3.5-5.0) g/dL 12/17/23 12/17/23 12/17/23 Range/Units 15:27 15:27 15:27 WBC (3.8-10.6) k/uL RBC (4.30-5.90) m/uL Hgb (13.0-17.5) gm/dL Hct (39.0-53.0) % Neutrophils # (1.3-7.7) k/uL Monocytes # (0-1.0) k/uL APTT (22.0-30.0) sec Sodium 135 L (137-145) mmol/L BUN 100 H (9-20) mg/dL Creatinine 2.38 H (0.66-1.25) mg/dL Glucose 244 H (74-99) mg/dL POC Glucose (mg/dL) (70-110) mg/dL Plasma Lactic Acid Andrea 2.6 H* (0.7-2.0) mmol/L Calcium 7.0 L (8.4-10.2) mg/dL Magnesium 0.9 L* (1.6-2.3) mg/dL Troponin I 0.113 H* (0.000-0.034) ng/mL Total Protein 5.8 L (6.3-8.2) g/dL Albumin 3.3 L (3.5-5.0) g/dL 12/17/23 12/17/23 12/17/23 Range/Units 19:25 19:25 22:27 WBC (3.8-10.6) k/uL RBC (4.30-5.90) m/uL Hgb (13.0-17.5) gm/dL Hct (39.0-53.0) % Neutrophils # (1.3-7.7) k/uL Monocytes # (0-1.0) k/uL APTT (22.0-30.0) sec Sodium (137-145) mmol/L BUN (9-20) mg/dL Creatinine (0.66-1.25) mg/dL Glucose (74-99) mg/dL POC Glucose (mg/dL) (70-110) mg/dL Plasma Lactic Acid Andrea 3.3 H* 3.2 H* (0.7-2.0) mmol/L Calcium (8.4-10.2) mg/dL Magnesium (1.6-2.3) mg/dL Troponin I 0.115 H* (0.000-0.034) ng/mL Total Protein (6.3-8.2) g/dL Albumin (3.5-5.0) g/dL 12/18/23 12/18/23 12/18/23 Range/Units 01:54 01:54 06:17 WBC (3.8-10.6) k/uL RBC (4.30-5.90) m/uL Hgb (13.0-17.5) gm/dL Hct (39.0-53.0) % Neutrophils # (1.3-7.7) k/uL Monocytes # (0-1.0) k/uL APTT (22.0-30.0) sec Sodium (137-145) mmol/L BUN (9-20) mg/dL Creatinine (0.66-1.25) mg/dL Glucose (74-99) mg/dL POC Glucose (mg/dL) 290 H (70-110) mg/dL Plasma Lactic Acid Andrea 3.4 H* (0.7-2.0) mmol/L Calcium (8.4-10.2) mg/dL Magnesium (1.6-2.3) mg/dL Troponin I 0.134 H* (0.000-0.034) ng/mL Total Protein (6.3-8.2) g/dL Albumin (3.5-5.0) g/dL 12/18/23 12/18/23 12/18/23 Range/Units 08:41 09:24 09:24 WBC 13.8 H (3.8-10.6) k/uL RBC 4.01 L (4.30-5.90) m/uL Hgb 12.2 L (13.0-17.5) gm/dL Hct 37.0 L (39.0-53.0) % Neutrophils # (1.3-7.7) k/uL Monocytes # (0-1.0) k/uL APTT (22.0-30.0) sec Sodium (137-145) mmol/L BUN 94 H (9-20) mg/dL Creatinine 2.41 H (0.66-1.25) mg/dL Glucose 232 H (74-99) mg/dL POC Glucose (mg/dL) 287 H (70-110) mg/dL Plasma Lactic Acid Andrea (0.7-2.0) mmol/L Calcium 7.7 L (8.4-10.2) mg/dL Magnesium (1.6-2.3) mg/dL Troponin I (0.000-0.034) ng/mL Total Protein (6.3-8.2) g/dL Albumin (3.5-5.0) g/dL 12/18/23 12/18/23 12/18/23 Range/Units 09:24 11:33 12:22 WBC (3.8-10.6) k/uL RBC (4.30-5.90) m/uL Hgb (13.0-17.5) gm/dL Hct (39.0-53.0) % Neutrophils # (1.3-7.7) k/uL Monocytes # (0-1.0) k/uL APTT (22.0-30.0) sec Sodium (137-145) mmol/L BUN (9-20) mg/dL Creatinine (0.66-1.25) mg/dL Glucose (74-99) mg/dL POC Glucose (mg/dL) 379 H (70-110) mg/dL Plasma Lactic Acid Andrea 3.1 H* 4.2 H* (0.7-2.0) mmol/L Calcium (8.4-10.2) mg/dL Magnesium (1.6-2.3) mg/dL Troponin I (0.000-0.034) ng/mL Total Protein (6.3-8.2) g/dL Albumin (3.5-5.0) g/dL
--- NOTE | 2023-12-18 15:05 | P.CRDCN ---
History of Present Illness Consult date: 12/18/23 Reason for Consult (text): Elevated troponin, hypomagnesemia History of present illness: This is a 73-year-old male patient of Dr. Curtis Haddad with past medical history of coronary artery disease status post angioplasty, chronic kidney disease, hy pertension, dyslipidemia, mild aortic stenosis. We have been asked to evaluate the patient for elevated troponins and hypomagnesemia. Patient states that his family doctor told him to come into the hospital due to abnormal lab test. He denies having any chest pain, shortness of breath, dizziness, palpitations. He states his lower extremity edema which is chronic is improved. He denies any cough no fever. No nausea or vomiting. No blood in his urine or stool. He states he has been diagnosed with chronic kidney disease about 6 months ago and also with diabetes within the last year or so. Patient is seen today in the emergency center waiting for a bed on the cardiac stepdown unit. EKG sinus rhythm with nonspecific ST changes. Chest x-ray: No acute process Laboratory studies: WBC 13.8, hemoglobin 12.2, platelet count 247. Sodium 138, potassium 4.1, BUN 94, creatinine 2.41. Lactic acid 3.1 and repeat 4.2. Magnesium 0.9 and repeat 1.8. Troponins 0.113, 0.115, 0.134. Home cardiac medications: Aspirin 81 mg daily, atorvastatin 40 mg at bedtime, Imdur 60 mg daily, magnesium oxide 400 mg daily, metoprolol tartrate 50 mg twice daily, K-Veronica 40 mill equivalents daily, Demadex 20 mg daily. Echocardiogram performed on 11/18/2023 revealed EF of 55 to 60%. Moderately dilated left atrium. Trace mitral regurgitation. Mild aortic stenosis. No pericardial effusion. Lexiscan Cardiolite stress test performed in the office on 06/12/2023 revealed a negative stress test by EKG criteria. Probably normal myocardial perfusion and function. Review Of Systems: At the time of my exam: CONSTITUTIONAL: Denies fever or chills. HEENT: Denies blurred vision, vision changes, or eye pain. Denies hemoptysis CARDIOVASCULAR: Denies chest pain. Denies orthopnea. Denies PND. Denies palpitations RESPIRATORY: Denies shortness of breath. GASTROINTESTINAL: Denies abdominal pain. Denies nausea or vomiting. HEMATOLOGIC: Denies bleeding disorders. GENITOURINARY: Denies any blood in urine. SKIN: Denies puritis. Denies rash. Physical examination: Gen: This is a 73-year-old male in no acute distress. VS: reviewed, blood pressure 182/116, heart rate 85, pulse ox 99% on room air. HEENT: Head is atraumatic, normocephalic. Pupils equal, round. Sclerae is anicteric. NECK: Supple. No JVD. LUNGS: Clear to auscultation. No wheezes or rhonchi. No intercostal retractions. HEART: Regular rate and rhythm. 2/6 systolic ejection murmur at the aortic area. ABDOMEN: Soft No tenderness. EXTREMITIES: Severe bilateral pedal edema. No calf tenderness. NEUROLOGICAL: Patient is awake, alert. Assessment: Chronically elevated troponin secondary to chronic kidney disease, no cardiac ischemia/injury. Chronic kidney disease IIIB/IV Lactic acidosis Leukocytosis History of coronary artery disease with previous angioplasty Hypertension Dyslipidemia Mild aortic stenosis Plan: Resume patient's home cardiac medications No need to repeat echocardiogram as this was done in October No plan for cardiac workup at this time Patient is cleared for discharge from cardiology and may follow-up in the office with Dr. Curtis Haddad in 1 to 2 weeks. Cardiology will sign off this case and follow on an as-needed basis. Please reconsult for any new concerns. Thank you kindly for this consultation. Nurse practitioner note has been reviewed, I agree with documented findings and plan of care. Patient was seen and examined. 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 Past Psychological History: No Psychological Hx Reported Additional Psychological History / Comment(s): Pt resides with his significant other. He is independent. Smoking Status: Former smoker Past Alcohol Use History: Rare Past Drug Use History: Marijuana Additional Drug Use History / Comment(s): Pt states he smokes 5-6 marijuana joints per day. - Past Family History Father Family Medical History: Diabetes Mellitus, Myocardial Infarction ([place]) Additional Family Medical History / Comment(s): Had leg amputation Mother History Unknown: Yes Family Medical History: No Reported History Sister(s) Family Medical History: Diabetes Mellitus Additional Family Medical History / Comment(s): 1 sister had arm amputated due to diabetes Medications and Allergies Home Medications Medication Instructions Recorded Confirmed Type Atorvastatin [Lipitor] 40 mg PO HS #30 tab 08/17/20 12/17/23 Rx Isosorbide Mononitrate ER [Imdur] 60 mg PO DAILY #30 tab.er.24h 08/17/20 4 Rx Pantoprazole [Protonix] 40 mg PO DAILY 30 Days #30 tab 05/10/23 12/17/23 Rx Acetaminophen Tab [Tylenol] 650 mg PO Q8H PRN 11/17/23 12/17/23 History Calcium Acetate [PhosLo] 667 mg PO TID-W/MEALS 11/17/23 12/17/23 History Magnesium Oxide [Mag-Ox] 400 mg PO DAILY 11/17/23 12/17/23 History Metoprolol Tartrate [Lopressor] 50 mg PO BID-W/MEALS 11/17/23 12/17/23 History Aspirin 81 mg PO DAILY #60 tab 11/23/23 12/17/23 Rx Ciprofloxacin HCl [Cipro] 500 mg PO Q12HR 10 Days #20 tab 11/23/23 12/17/23 Rx Insulin NPH Hum/Reg Insulin Hm 10 unit SQ AC-SUPPER 12/17/23 12/17/23 History [humuLIN 70/30 Kwikpen] Insulin NPH Hum/Reg Insulin Hm 20 unit SQ AC-BRKFST 12/17/23 12/17/23 History [humuLIN 70/30 Kwikpen] Potassium Chloride ER [K-Dur 20] 40 meq PO DAILY 12/17/23 12/17/23 History Torsemide [Demadex] 20 mg PO DAILY 12/17/23 12/17/23 History predniSONE 50 mg PO DAILY 12/17/23 12/17/23 History Allergies Allergy/AdvReac Type Severity Reaction Status Date / Time No Known Allergies Allergy Verified 12/17/23 16:01 Physical Exam Vitals: Vital Signs Temp Pulse Resp BP Pulse Ox 12/18/23 05:52 85 16 182/116 99 12/18/23 01:51 78 18 172/98 95 12/18/23 00:39 65 18 187/112 96 12/17/23 18:25 84 18 159/108 12/17/23 15:10 70 18 116/95 96 12/17/23 14:03 98.1 F 103 H 16 142/88 97 Intake and Output 12/17/23 12/18/23 12/18/23 22:59 06:59 14:59 Other: Weight 86.183 kg Results 12/18/23 09:24 12/18/23 09:24 Cardiac Enzymes 12/17/23 12/17/23 12/17/23 Range/Units 15:27 15:27 19:25 AST 31 (17-59) U/L Troponin I 0.113 H* 0.115 H* (0.000-0.034) ng/mL 12/18/23 Range/Units 01:54 AST (17-59) U/L Troponin I 0.134 H* (0.000-0.034) ng/mL Coagulation 12/17/23 Range/Units 15:27 PT 10.6 (10.0-12.5) sec APTT 19.9 L (22.0-30.0) sec CBC 12/17/23 Range/Units 15:27 WBC 18.2 H (3.8-10.6) k/uL RBC 3.66 L (4.30-5.90) m/uL Hgb 11.2 L (13.0-17.5) gm/dL Hct 33.1 L (39.0-53.0) % Plt Count 231 (150-450) k/uL Comprehensive Metabolic Panel 12/17/23 Range/Units 15:27 Sodium 135 L (137-145) mmol/L Potassium 4.3 (3.5-5.1) mmol/L Chloride 102 (98-107) mmol/L Carbon Dioxide 23 (22-30) mmol/L BUN 100 H (9-20) mg/dL Creatinine 2.38 H (0.66-1.25) mg/dL Glucose 244 H (74-99) mg/dL Calcium 7.0 L (8.4-10.2) mg/dL AST 31 (17-59) U/L ALT 37 (4-49) U/L Alkaline Phosphatase 106 (38-126) U/L Total Protein 5.8 L (6.3-8.2) g/dL Albumin 3.3 L (3.5-5.0) g/dL Current Medications Generic Name Dose Route Start Last Admin Trade Name Jose Rafaelq PRN Reason Stop Dose Admin Aspirin 81 mg 12/18/23 09:00 Aspirin 81 Mg PO DAILY [facility] Atorvastatin Calcium 40 mg 12/18/23 21:00 Atorvastatin 40 Mg Tab PO HS [facility] Calcium Acetate 667 mg 12/18/23 07:30 Calcium Acetate 667 Mg Tab PO TID-W/MEALS [facility] Heparin Sodium (Porcine) 5,000 unit 12/18/23 16:00 Heparin Sodium,Porcine 5,000 Unit/Ml 1 Ml Vial SQ Q8HR [facility] Insulin Aspart 0 unit 12/18/23 07:30 Insulin Aspart (Novolog) 100 Unit/Ml Vial SQ ACHS [facility] Protocol Insulin Detemir 20 unit 12/19/23 07:00 Insulin Detemir (Levemir) 100 Unit/Ml Syr SQ DAILY@0700 [facility] Isosorbide Mononitrate 60 mg 12/18/23 09:00 Isosorbide Mononitrate Er 60 Mg Tab.Er.24h PO DAILY [facility] Magnesium Oxide 400 mg 12/18/23 09:00 Magnesium Oxide 400 Mg Tab PO DAILY [facility] Metoprolol Tartrate 50 mg 12/18/23 07:30 Metoprolol Tartrate 50 Mg Tab PO BID-W/MEALS [facility] Nystatin 1 applic 12/18/23 09:00 Nystatin 100,000 Unit/Gm Oint 30 Gm Tube TOPICAL BID [facility] Protocol Pantoprazole Sodium 40 mg 12/18/23 09:00 Pantoprazole 40 Mg Tablet PO DAILY [facility] Potassium Chloride 40 meq 12/18/23 09:00 Potassium Chloride Er 20 Meq Tab.Er PO DAILY [facility] Prednisone 50 mg 12/18/23 09:00 Prednisone 50 Mg Tab PO DAILY [facility] Torsemide 20 mg 12/18/23 09:00 Torsemide 20 Mg Tab PO DAILY [facility] Intake and Output 12/17/23 12/18/23 12/18/23 22:59 06:59 14:59 Other: Weight 86.183 kg 12/17/23 15:27 12/17/23 15:27
--- NOTE | 2023-12-18 16:14 | CT ---
EXAMINATION TYPE: CT abdomen pelvis wo con DATE OF EXAM: 12/18/2023 COMPARISON: None INDICATION: abd pain, lactic acidosis DLP: 875.3 mGycm, Automated exposure control for dose reduction was used. CONTRAST: 0 mL of Isovue 300. Study performed without Oral Contrast TECHNIQUE: Axial images were obtained from above the diaphragm to the pubic rami in the axial plane a t 5 mm thick sections. Reconstructed images are reviewed on the computer in the coronal plane. FINDINGS: Limited CT sections are obtained the lung bases. The lung bases are clear. CT ABDOMEN: Liver: Normal Spleen: Normal Pancreas: Normal Adrenal glands: The adrenal glands are normal. Gallbladder: Normal Kidneys: No masses are evident. Left kidney may have some atrophic change. No hydronephrosis is prese nt. 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 Bilateral ureters appear p rominent. No obstructing renal or ureteral stones evident. Urinary bladder is distended. No cysts a re present. Aorta: Vascular calcification is within the aorta. 3.5 cm abdominal fusiform prominence extending to the bifurcation and beginning below the level of the renal arteries Inferior vena cava: Normal. CT PELVIS: Loops of bowel within the abdomen and pelvis are normal. Study is without oral contrast limiting bow el evaluation. Some fecal debris without obstruction is through the colon. Appendix: Normal as visualized. Urinary bladder: Distended. Genitourinary structures: Mildly prominent with calcification. Osseous structures: No suspicious lytic or sclerotic lesions are evident. IMPRESSION: 1. There is prominence of the bilateral ureters to the distended urinary bladder revealed no obstruc ting etiology otherwise apparent. No renal or ureteral stones.
[2023-12-18 16:46] LABS: Glucose,Whole Blood 453 mg/dL (70-110)
[2023-12-18 20:10] LABS: Glucose,Whole Blood 338 mg/dL (70-110)
[2023-12-18] MEDS: ATORVASTATIN 40 MG TAB PO SCH (20:51)
[2023-12-18 23:57] LABS: Appearance,Urine Clear (Clear); Bacteria,Urine Rare /hpf; Bilirubin,Urine Negative (Negative); Blood,Urine Small (Negative); Budding Yeast,Urine Many /hpf; Color,Urine Colorless; Glucose,Urine (UA) 3+ (Negative); Hyphae Yeast, Urine Rare /hpf; Ketones,Urine Negative (Negative); Leukocyte Esterase,Urine Large (Negative); Mucus,Urine Rare /hpf; Nitrite,Urine Negative (Negative); PH, Urine 5.5 (5.0-8.0); Protein,Urine Trace (Negative); RBC,Urine 17 /hpf (0-5); Specific Gravity,Urine 1.007 (1.001-1.035); Squamous Epithelial Cell,Urine <1 /hpf (0-4); Urobilinogen,Urine <2.0 mg/dL (<2.0); WBC,Urine 14 /hpf (0-5)
[2023-12-19] MEDS: hydrALAZINE HCL 20 MG/ML 1 ML VIAL IVP PRN (03:23)
[2023-12-19 05:16] LABS: Basophils # (A) 0.1 k/uL (0-0.2); Basophils % (A) 0 %; Eosinophils # (A) 0.1 k/uL (0-0.7); Eosinophils % (A) 1 %; HCT 40.2 % (39.0-53.0); Lymphocytes # (A) 1.2 k/uL (1.0-4.8); Lymphocytes % (A) 8 %; MCH 30.3 pg (25.0-35.0); MCHC 32.3 g/dL (31.0-37.0); MCV 93.8 fL (80.0-100.0); Mean Platelet Volume 8.7; Monocytes % (A) 6 %; Neutrophils # (A) 13.6 k/uL (1.3-7.7); Neutrophils % (A) 84 %; Platelet Count 309 k/uL (150-450); RBC 4.29 m/uL (4.30-5.90); RDW 15.5 % (11.5-15.5); WBC 16.1 k/uL (3.8-10.6)
[2023-12-19 05:33] LABS: African American GFR (CKD) 30 (>60 ml/min/1.73 sqM); Anion Gap 11 mmol/L; Blood Urea Nitrogen 88 mg/dL (9-20); Carbon Dioxide 24 mmol/L (22-30); Chloride 101 mmol/L (98-107); Glucose 216 mg/dL (74-99); Magnesium 1.8 mg/dL (1.6-2.3); Non-African American GFR(CKD) 26 (>60 ml/min/1.73 sqM); Potassium 4.2 mmol/L (3.5-5.1); Sodium 136 mmol/L (137-145)
[2023-12-19 06:14] LABS: Glucose,Whole Blood 255 mg/dL (70-110)
[2023-12-19] MEDS: INSULIN DETEMIR (LEVEMIR) 100 UNIT/ML SYR SQ SCH (06:44)
[2023-12-19] MEDS: predniSONE 20 MG TAB PO SCH (08:19)
--- NOTE | 2023-12-19 10:37 | P.PN ---
Subjective Patient is seen in follow-up for chronic kidney disease. Renal function stable. No vomiting or diarrhea. Blood pressure on the higher side this morning. Vital signs are stable. General: No acute distress. HEENT: Head exam is unremarkable. LUNGS: No audible rhonchi or wheezes. HEART: Rate and Rhythm are regular. ABDOMEN: Nontender. EXTREMITITES: 2+ edema. Objective - Vital Signs Vital signs: Vital Signs Temp 97.5 F L 12/19/23 08:00 Pulse 74 12/19/23 08:00 Resp 20 12/19/23 08:00 BP 167/93 12/19/23 08:00 Pulse Ox 99 12/19/23 08:00 FiO2 Intake & Output 12/18/23 12/19/23 12/19/23 18:59 06:59 18:59 Intake Total 128 500 Output Total 150 500 Balance 128 350 -500 Intake: IV 10 20 Invasive Line 1 10 20 Oral 118 480 Output: Urine 150 500 Other: Voiding Method Bedside Commode Urinal Urinal Diaper Diaper Diaper # Voids 1 1 # Bowel Movements 1 - Labs CBC & Chem 7: 12/19/23 04:41 12/19/23 04:41 Labs: Abnormal Lab Results - Last 24 Hours (Table) 12/18/23 12/18/23 12/18/23 Range/Units 11:33 12:22 15:46 WBC (3.8-10.6) k/uL RBC (4.30-5.90) m/uL Neutrophils # (1.3-7.7) k/uL Sodium (137-145) mmol/L BUN (9-20) mg/dL Creatinine (0.66-1.25) mg/dL Glucose (74-99) mg/dL POC Glucose (mg/dL) 379 H (70-110) mg/dL Plasma Lactic Acid Adnrea 4.2 H* 4.2 H* (0.7-2.0) mmol/L Calcium (8.4-10.2) mg/dL Urine Protein (Negative) Urine Glucose (UA) (Negative) Urine Blood (Negative) Ur Leukocyte Esterase (Negative) Urine RBC (0-5) /hpf Urine WBC (0-5) /hpf Urine Bacteria (None) /hpf Urine Mucus (None) /hpf Urine Yeast (Budding) (None) /hpf 0612/18/23 12/18/23 Range/Units 16:44 19:12 20:09 WBC (3.8-10.6) k/uL RBC (4.30-5.90) m/uL Neutrophils # (1.3-7.7) k/uL Sodium (137-145) mmol/L BUN (9-20) mg/dL Creatinine (0.66-1.25) mg/dL Glucose (74-99) mg/dL POC Glucose (mg/dL) 453 H 338 H (70-110) mg/dL Plasma Lactic Acid Andrea 4.4 H* (0.7-2.0) mmol/L Calcium (8.4-10.2) mg/dL Urine Protein (Negative) Urine Glucose (UA) (Negative) Urine Blood (Negative) Ur Leukocyte Esterase (Negative) Urine RBC (0-5) /hpf Urine WBC (0-5) /hpf Urine Bacteria (None) /hpf Urine Mucus (None) /hpf Urine Yeast (Budding) (None) /hpf 12/18/23 12/18/23 12/19/23 Range/Units 22:03 23:40 01:07 WBC (3.8-10.6) k/uL RBC (4.30-5.90) m/uL Neutrophils # (1.3-7.7) k/uL Sodium (137-145) mmol/L BUN (9-20) mg/dL Creatinine (0.66-1.25) mg/dL Glucose (74-99) mg/dL POC Glucose (mg/dL) (70-110) mg/dL Plasma Lactic Acid Andrea 3.2 H* 2.5 H* (0.7-2.0) mmol/L Calcium (8.4-10.2) mg/dL Urine Protein Trace H (Negative) Urine Glucose (UA) 3+ H (Negative) Urine Blood Small H (Negative) Ur Leukocyte Esterase Large H (Negative) Urine RBC 17 H (0-5) /hpf Urine WBC 14 H (0-5) /hpf Urine Bacteria Rare H (None) /hpf Urine Mucus Rare H (None) /hpf Urine Yeast (Budding) Many H (None) /hpf 12/19/23 12/19/23 12/19/23 Range/Units 04:41 04:41 06:12 WBC 16.1 H (3.8-10.6) k/uL RBC 4.29 L (4.30-5.90) m/uL Neutrophils # 13.6 H (1.3-7.7) k/uL Sodium 136 L (137-145) mmol/L BUN 88 H (9-20) mg/dL Creatinine 2.41 H (0.66-1.25) mg/dL Glucose 216 H (74-99) mg/dL POC Glucose (mg/dL) 255 H (70-110) mg/dL Plasma Lactic Acid Andrea (0.7-2.0) mmol/L Calcium 8.0 L (8.4-10.2) mg/dL Urine Protein (Negative) Urine Glucose (UA) (Negative) Urine Blood (Negative) Ur Leukocyte Esterase (Negative) Urine RBC (0-5) /hpf Urine WBC (0-5) /hpf Urine Bacteria (None) /hpf Urine Mucus (None) /hpf Urine Yeast (Budding) (None) /hpf Assessment and Plan Plan: Assessment: 1. 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 Patient has received 2 doses of rituximab with last dose being October 16, 2023. Further doses have been held due to recurrent infections. He is also maintained on prednisone. 2. Hypertension with chronic kidney disease. Exacerbated by steroids. 3. Diabetes mellitus. Exacerbated by steroids. 4. Chronic diastolic CHF. 5. Hypomagnesemia secondary to diuretic use. Replaced. Improved. On oral magnesium oxide. 6. Lactic acidosis. This is likely type a lactic acidosis from hypoperfusion due to underlying cardiomyopathy. Plan: Stop torsemide. Add IV Lasix 40 mg twice daily. Encouraged oral intake. Maintain prednisone 20 mg once daily. It was again stressed with the patient and also discussed with his to cut the dose down to 20 mg once daily. Patient will finish the course of rituximab outpatient once infection free. Avoid nephrotoxins. Continue to monitor renal function and urine output. Maintain PPI. Patient to follow-up outpatient 1 week postdischarge. Case discussed with primary team.
[2023-12-19 11:57] LABS: Glucose,Whole Blood 231 mg/dL (70-110)
[2023-12-19] MEDS: FUROSEMIDE 10 MG/ML 4 ML VIAL IV SCH (12:12)
--- NOTE | 2023-12-19 12:15 | P.PN ---
Subjective Progress Note Date: 12/19/23 Hospital Course: 73-year-old male with history of CKD stage III secondary to crescentic glomeru lonephritis, type II DM, hypertension, hyperlipidemia, CAD, presenting after told by his PCP that his blood pressure was elevated in the 200s. Chest x-ray in the emergency room was unremarkable. EKG revealed sinus rhythm at [address]/T wave changes noted. Vital signs significant for hypertension. Patient was on room air. Laboratory evaluation was remarkable for lactic acid 3.2, magnesium 0.9, troponin 0.115, WBC count 18.2, hemoglobin 11.2, sodium 135, BUN 100 with creatinine 2.38 (at baseline). Nephrology and cardiology consulted. Subjective: Patient seen and examined at bedside. No acute events overnight. Pertinent positives and negatives as discussed above, a complete review of systems was performed and all other systems are negative. Vitals Signs Reviewed. General: Nontoxic, no distress, appears at stated age Derm: Warm, dry Head: Atraumatic, normocephalic, symmetric Eyes: EOMI, no lid lag, anicteric sclera Mouth: No lip lesion, mucus membranes moist Cardiovascular: S1S2 reg, systolic murmur Lungs: CTA bilateral, no rhonchi, no rales, no accessory muscle use Abdominal: Soft, nontender to palpation, no guarding, no appreciable organomegaly Ext: No gross muscle atrophy, plus pitting edema, no contractures Neuro: CN II-XI grossly intact, no focal neuro deficits Psych: Alert, oriented, appropriate affect Data Reviewed Today: Pertinent Labs: WBC 16.1, hemoglobin 13, sodium 136, creatinine 2.41, blood sugars range between 2 31-2 55, magnesium 1.8 Imaging: No new imaging Assessment and Plan: Active: CKD stage III with mesenteric glomerulonephritis Hypertension Elevated troponin Hypervolemia Lactic acidosis -Discussed management with nephrology, torsemide discontinued, patient started on IV Lasix 40 every 12 hours, monitor electrolytes and renal function -Continue prednisone 20 mg daily, hydralazine 10 IV every 6 hours as needed, amlodipine 5 mg daily, Imdur 60 mg daily, metoprolol 50 twice daily -Troponin elevated in the setting of chronic kidney disease -Lactic acidosis likely type II Insulin-dependent diabetes -Increase Levemir to 30 units daily -Sliding scale insulin, monitor for hypoglycemia Left lower extremity medial wound, present on admission Lower extremity stasis dermatitis -Wound care consulted Chronic: Dyslipidemia CAD DVT ppx: Subcu heparin Code status: full code Anticipated discharge place: pending clinical course Anticipated discharge time: pending clinical course Objective - Vital Signs Vital signs: Vital Signs Temp 97.5 F L 12/19/23 11:44 Pulse 76 12/19/23 11:44 Resp 20 12/19/23 11:44 BP 99/67 12/19/23 11:44 Pulse Ox 98 12/19/23 11:44 FiO2 Intake & Output 12/18/23 12/19/23 12/19/23 18:59 06:59 18:59 Intake Total 128 500 Output Total 150 500 Balance 128 350 -500 Intake: IV 10 20 Invasive Line 1 10 20 Oral 118 480 Output: Urine 150 500 Other: Voiding Method Bedside Commode Urinal Urinal Diaper Diaper Diaper # Voids 1 1 # Bowel Movements 1 - Labs CBC & Chem 7: 12/19/23 04:41 12/19/23 04:41 Labs: Abnormal Lab Results - Last 24 Hours (Table) 12/18/23 12/18/23 12/18/23 Range/Units 12:22 15:46 16:44 WBC (3.8-10.6) k/uL RBC (4.30-5.90) m/uL Neutrophils # (1.3-7.7) k/uL Sodium (137-145) mmol/L BUN (9-20) mg/dL Creatinine (0.66-1.25) mg/dL Glucose (74-99) mg/dL POC Glucose (mg/dL) 453 H (70-110) mg/dL Plasma Lactic Acid Andrea 4.2 H* 4.2 H* (0.7-2.0) mmol/L Calcium (8.4-10.2) mg/dL Urine Protein (Negative) Urine Glucose (UA) (Negative) Urine Blood (Negative) Ur Leukocyte Esterase (Negative) Urine RBC (0-5) /hpf Urine WBC (0-5) /hpf Urine Bacteria (None) /hpf Urine Mucus (None) /hpf Urine Yeast (Budding) (None) /hpf 12/18/23 12/18/23 12/18/23 Range/Units 19:12 20:09 22:03 WBC (3.8-10.6) k/uL RBC (4.30-5.90) m/uL Neutrophils # (1.3-7.7) k/uL Sodium (137-145) mmol/L BUN (9-20) mg/dL Creatinine (0.66-1.25) mg/dL Glucose (74-99) mg/dL POC Glucose (mg/dL) 338 H (70-110) mg/dL Plasma Lactic Acid Andrea 4.4 H* 3.2 H* (0.7-2.0) mmol/L Calcium (8.4-10.2) mg/dL Urine Protein (Negative) Urine Glucose (UA) (Negative) Urine Blood (Negative) Ur Leukocyte Esterase (Negative) Urine RBC (0-5) /hpf Urine WBC (0-5) /hpf Urine Bacteria (None) /hpf Urine Mucus (None) /hpf Urine Yeast (Budding) (None) /hpf 12/18/23 12/19/23 12/19/23 Range/Units 23:40 01:07 04:41 WBC 16.1 H (3.8-10.6) k/uL RBC 4.29 L (4.30-5.90) m/uL Neutrophils # 13.6 H (1.3-7.7) k/uL Sodium (137-145) mmol/L BUN (9-20) mg/dL Creatinine (0.66-1.25) mg/dL Glucose (74-99) mg/dL POC Glucose (mg/dL) (70-110) mg/dL Plasma Lactic Acid Andrea 2.5 H* (0.7-2.0) mmol/L Calcium (8.4-10.2) mg/dL Urine Protein Trace H (Negative) Urine Glucose (UA) 3+ H (Negative) Urine Blood Small H (Negative) Ur Leukocyte Esterase Large H (Negative) Urine RBC 17 H (0-5) /hpf Urine WBC 14 H (0-5) /hpf Urine Bacteria Rare H (None) /hpf Urine Mucus Rare H (None) /hpf Urine Yeast (Budding) Many H (None) /hpf 12/19/23 12/19/23 12/19/23 Range/Units 04:41 06:12 11:56 WBC (3.8-10.6) k/uL RBC (4.30-5.90) m/uL Neutrophils # (1.3-7.7) k/uL Sodium 136 L (137-145) mmol/L BUN 88 H (9-20) mg/dL Creatinine 2.41 H (0.66-1.25) mg/dL Glucose 216 H (74-99) mg/dL POC Glucose (mg/dL) 255 H 231 H (70-110) mg/dL Plasma Lactic Acid Andrea (0.7-2.0) mmol/L Calcium 8.0 L (8.4-10.2) mg/dL Urine Protein (Negative) Urine Glucose (UA) (Negative) Urine Blood (Negative) Ur Leukocyte Esterase (Negative) Urine RBC (0-5) /hpf Urine WBC (0-5) /hpf Urine Bacteria (None) /hpf Urine Mucus (None) /hpf Urine Yeast (Budding) (None) /hpf
[2023-12-19] MEDS: INSULIN DETEMIR (LEVEMIR) 100 UNIT/ML SYR SQ STA (12:49)
[2023-12-19] MEDS ORDERED: ZINC OXIDE PASTE (Z-GUARD) 1 APPLIC TOPICAL PRN (16:28)
[2023-12-19 16:37] LABS: Glucose,Whole Blood 374 mg/dL (70-110)
[2023-12-19 20:13] LABS: Glucose,Whole Blood 341 mg/dL (70-110)
[2023-12-20 06:16] LABS: Glucose,Whole Blood 144 mg/dL (70-110)
[2023-12-20] MEDS: INSULIN DETEMIR (LEVEMIR) 100 UNIT/ML SYR SQ SCH (06:31)
[2023-12-20 09:00] VITALS: RESP 18; TEMP 97.6
[2023-12-20 09:47] LABS: African American GFR (CKD) 29 (>60 ml/min/1.73 sqM); Anion Gap 7 mmol/L; Blood Urea Nitrogen 81 mg/dL (9-20); Calcium 8.4 mg/dL (8.4-10.2); Carbon Dioxide 26 mmol/L (22-30); Chloride 103 mmol/L (98-107); Glucose 169 mg/dL (74-99); Magnesium 1.6 mg/dL (1.6-2.3); Non-African American GFR(CKD) 25 (>60 ml/min/1.73 sqM); Potassium 4.2 mmol/L (3.5-5.1); Sodium 136 mmol/L (137-145)
[2023-12-20 10:44] LABS: Basophils # (A) 0.1 k/uL (0-0.2); Basophils % (A) 0 %; Eosinophils # (A) 0.1 k/uL (0-0.7); Eosinophils % (A) 1 %; HCT 35.2 % (39.0-53.0); HGB 11.8 gm/dL (13.0-17.5); Lymphocytes % (A) 8 %; MCH 30.2 pg (25.0-35.0); MCHC 33.4 g/dL (31.0-37.0); MCV 90.5 fL (80.0-100.0); Mean Platelet Volume 9.2; Monocytes % (A) 8 %; Neutrophils # (A) 9.9 k/uL (1.3-7.7); Neutrophils % (A) 82 %; Platelet Count 244 k/uL (150-450); RBC 3.89 m/uL (4.30-5.90); RDW 15.2 % (11.5-15.5); WBC 12.1 k/uL (3.8-10.6)
--- NOTE | 2023-12-20 11:05 | P.CONS ---
History of Present Illness - Reason for Consult Consult date: 12/20/23 wound care - History of Present Illness This is a 73-year-old patient being seen on 3 S. for nonhealing ulceration to the left lower extremity medial aspect measuring approximately 0.3 x 0.3 x 0.1 cm with slough and nonviable tissue present minimal granulation wound edges are attached to the wound base no tunneling or undermining noted. Patient does have excoriation noted to the left lower extremity. Patient also has a skin tear to the left forearm measuring approximately 1 x 1 x 0.1 cm limited to skin breakdown. Patient's past medical history significant for heart failure, diabetes, hyperlipidemia, hypertension, renal disease. Review Of Systems: Constitutional: No fever, no chills, no night sweats. No weight change. No weakness, fatigue or lethargy. No daytime sleepiness. Integumentary:reports wounds, no lesions. No rash or pruritus. No unusual bruising. No change in hair or nails. Physical exam: General Appearance: Alert, cooperative, no distress, appears stated age. Skin: See HPI all other Skin color, texture, tugor normal, no rashes or lesions. Neurologic: Alert oriented x3 Assessment: 1. Nonhealing ulceration with fat layer exposure left lower extremity 2. Nonpressure ulcer limited to skin breakdown left arm 3. Diabetic with skin ulceration Plan: 1. Left lower extremity apply honey gel and bordered foam change Saturday. Left forearm apply zinc barrier cream and cover with dressing as appropriate. Change daily. Thank you for the consultation any questions please contact the wound care center DNP note has been reviewed and discussed with Dr. Castañeda and the impression and plan of care has been directed as dictated. Past Medical History Past Medical History: Heart Failure, Diabetes Mellitus, Hyperlipidemia, Hypertension, Renal Disease Additional Past Medical History / Comment(s): Cardiomyopathy, tumor in front of heart being monitored Last Myocardial Infarction Date:: 2022 History of Any Multi-Drug Resistant Organisms: None Reported Past Surgical History: No Surgical Hx Reported Past Anesthesia/Blood Transfusion Reactions: Unable to Obtain Additional Past Anesthesia/Blood Transfusion Reaction / Comm: Pt states he has never had surgery. Past Psychological History: No Psychological Hx Reported Additional Psychological History / Comment(s): Pt resides with his significant other. He is independent. Smoking Status: Former smoker Past Alcohol Use History: Rare Past Drug Use History: Marijuana Additional Drug Use History / Comment(s): Pt states he smokes 5-6 marijuana joints per day. - Past Family History Father Family Medical History: Diabetes Mellitus, Myocardial Infarction ([place]) Additional Family Medical History / Comment(s): Had leg amputation Mother History Unknown: Yes Family Medical History: No Reported History Sister(s) Family Medical History: Diabetes Mellitus Additional Family Medical History / Comment(s): 1 sister had arm amputated due to diabetes Medications and Allergies Home Medications Medication Instructions Recorded Confirmed Type Atorvastatin [Lipitor] 40 mg PO HS #30 tab 08/17/20 12/17/23 Rx Isosorbide Mononitrate ER [Imdur] 60 mg PO DAILY #30 tab.er.24h 08/17/20 12/17/23 Rx Pantoprazole [Protonix] 40 mg PO DAILY 30 Days #30 tab 05/10/23 12/17/23 Rx Acetaminophen Tab [Tylenol] 650 mg PO Q8H PRN 11/17/23 12/17/23 History Calcium Acetate [PhosLo] 667 mg PO TID-W/MEALS 11/17/23 12/17/23 History Magnesium Oxide [Mag-Ox] 400 mg PO DAILY 11/17/23 12/17/23 History Metoprolol Tartrate [Lopressor] 50 mg PO BID-W/MEALS 11/17/23 12/17/23 History Aspirin 81 mg PO DAILY #60 tab 11/23/23 12/17/23 Rx Ciprofloxacin HCl [Cipro] 500 mg PO Q12HR 10 Days #20 tab 11/23/23 12/17/23 Rx Insulin NPH Hum/Reg Insulin Hm 10 unit SQ AC-SUPPER 12/17/23 12/17/23 History [humuLIN 70/30 Kwikpen] Insulin NPH Hum/Reg Insulin Hm 20 unit SQ AC-BRKFST 12/17/23 12/17/23 History [humuLIN 70/30 Kwikpen] Potassium Chloride ER [K-Dur 20] 40 meq PO DAILY 12/17/23 12/17/23 History Torsemide [Demadex] 20 mg PO DAILY 12/17/23 12/17/23 History predniSONE 50 mg PO DAILY 12/17/23 12/17/23 History Allergies Allergy/AdvReac Type Severity Reaction Status Date / Time No Known Allergies Allergy Verified 12/17/23 16:01 Physical Exam Vitals: Vital Signs Temp Pulse Resp BP Pulse Ox 12/20/23 10:15 74 18 12/20/23 08:51 97.6 F 74 18 127/79 97 12/20/23 03:06 97.2 F L 82 20 127/83 99 12/19/23 23:17 89 20 127/82 96 12/19/23 19:50 97.9 F 83 20 150/87 94 L 12/19/23 16:28 98.1 F 86 20 131/87 94 L 12/19/23 11:44 97.5 F L 76 20 99/67 98 12/19/23 11:17 89 20 150/82 96 Intake and Output 12/19/23 12/20/23 12/20/23 22:59 06:59 14:59 Intake Total 770 Output Total 450 700 Balance -450 70 Intake: IV 10 Invasive Line 2 10 Oral 760 Output: Urine 450 700 Other: Voiding Method Urinal Urinal Urinal Diaper Diaper Diaper Results CBC & Chem 7: 12/20/23 08:57 12/20/23 08:57 Labs: Abnormal Lab Results - Last 24 Hours (Table) 12/19/23 12/19/23 12/19/23 Range/Units 11:56 16:35 20:12 WBC (3.8-10.6) k/uL RBC (4.30-5.90) m/uL Hgb (13.0-17.5) gm/dL Hct (39.0-53.0) % Neutrophils # (1.3-7.7) k/uL Sodium (137-145) mmol/L BUN (9-20) mg/dL Creatinine (0.66-1.25) mg/dL Glucose (74-99) mg/dL POC Glucose (mg/dL) 231 H 374 H 341 H (70-110) mg/dL 12/20/23 12/20/23 12/20/23 Range/Units 06:15 08:57 08:57 WBC 12.1 H (3.8-10.6) k/uL RBC 3.89 L (4.30-5.90) m/uL Hgb 11.8 L (13.0-17.5) gm/dL Hct 35.2 L (39.0-53.0) % Neutrophils # 9.9 H (1.3-7.7) k/uL Sodium 136 L (137-145) mmol/L BUN 81 H (9-20) mg/dL Creatinine 2.46 H (0.66-1.25) mg/dL Glucose 169 H (74-99) mg/dL POC Glucose (mg/dL) 144 H (70-110) mg/dL Assessment and Plan (1) Non-pressure chronic ulcer of other part of left lower leg with fat layer exposed Current Visit: Yes Status: Acute Code(s): L97.822 - NON-PRS CHRONIC ULCER OTH PRT L LOW LEG W FAT LAYER EXPOSED SNOMED Code(s): 84699936323395631 (2) Non-pressure chronic ulcer of skin of other sites limited to breakdown of skin Current Visit: Yes Status: Acute Code(s): L98.491 - NON-PRS CHRONIC ULCER SKIN/ SITES LIMITED TO BRKDWN SKIN SNOMED Code(s): 60291179 (3) Type 2 diabetes mellitus with other skin ulcer Current Visit: Yes Status: Acute Code(s): E11.622 - TYPE 2 DIABETES MELLITUS WITH OTHER SKIN ULCER; L98.499 - NON-PRESSURE CHRONIC ULCER OF SKIN OF SITES W UNSP SEVERITY SNOMED Code(s): 621241203
--- NOTE | 2023-12-20 11:28 | P.PN ---
Subjective Patient is seen in follow-up for chronic kidney disease. Renal function stable. No vomiting or diarrhea. On IV Lasix. Admits to good urine output. Wants to go home. Vital signs are stable. General: No acute distress. HEENT: Head exam is unremarkable. LUNGS: No audible rhonchi or wheezes. HEART: Rate and Rhythm are regular. ABDOMEN: Nontender. EXTREMITITES: 2+ edema. Objective - Vital Signs Vital signs: Vital Signs Temp 97.6 F 12/20/23 08:51 Pulse 74 12/20/23 10:15 Resp 18 12/20/23 10:15 BP 127/79 12/20/23 08:51 Pulse Ox 97 12/20/23 08:51 FiO2 Intake & Output 12/19/23 12/20/23 12/20/23 18:59 06:59 18:59 Intake Total 770 Output Total 825 1000 Balance -825 -230 Intake: IV 10 Invasive Line 2 10 Oral 760 Output: Urine 825 1000 Other: Voiding Method Urinal Urinal Urinal Diaper Diaper Diaper - Labs CBC & Chem 7: 12/20/23 08:57 12/20/23 08:57 Labs: Abnormal Lab Results - Last 24 Hours (Table) 12/19/23 12/19/23 12/19/23 Range/Units 11:56 16:35 20:12 WBC (3.8-10.6) k/uL RBC (4.30-5.90) m/uL Hgb (13.0-17.5) gm/dL Hct (39.0-53.0) % Neutrophils # (1.3-7.7) k/uL Sodium (137-145) mmol/L BUN (9-20) mg/dL Creatinine (0.66-1.25) mg/dL Glucose (74-99) mg/dL POC Glucose (mg/dL) 231 H 374 H 341 H (70-110) mg/dL 12/20/23 12/20/23 12/20/23 Range/Units 06:15 08:57 08:57 WBC 12.1 H (3.8-10.6) k/uL RBC 3.89 L (4.30-5.90) m/uL Hgb 11.8 L (13.0-17.5) gm/dL Hct 35.2 L (39.0-53.0) % Neutrophils # 9.9 H (1.3-7.7) k/uL Sodium 136 L (137-145) mmol/L BUN 81 H (9-20) mg/dL Creatinine 2.46 H (0.66-1.25) mg/dL Glucose 169 H (74-99) mg/dL POC Glucose (mg/dL) 144 H (70-110) mg/dL Assessment and Plan Plan: Assessment: 1. 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 Patient has received 2 doses of rituximab with last dose being October 16, 2023. Further doses have been held due to recurrent infections. He is also maintained on prednisone. 2. Hypertension with chronic kidney disease. Exacerbated by steroids. 3. Diabetes mellitus. Exacerbated by steroids. 4. Chronic diastolic CHF. 5. Hypomagnesemia secondary to diuretic use. On oral magnesium oxide. 6. Lactic acidosis. This is likely type a lactic acidosis from hypoperfusion due to underlying cardiomyopathy. Plan: Stop torsemide. Maintain IV Lasix. Encouraged oral intake. Maintain prednisone 20 mg once daily. It was again stressed with the patient and also discussed with his to cut the dose down to 20 mg once daily. Patient will finish the course of rituximab outpatient once infection free. Avoid nephrotoxins. Continue to monitor renal function and urine output. Maintain PPI. Patient to follow-up outpatient 1 week postdischarge. Case discussed with primary team. Transition to oral torsemide 40 mg once daily upon discharge. Repeat BMP and magnesium level 2 to 3 days postdischarge. Advised patient to maintain low-salt diet and fluid restriction of less than 50 ounces per day upon discharge.
[2023-12-20 11:55] LABS: Glucose,Whole Blood 164 mg/dL (70-110)
[2023-12-20 12:11] VITALS: BP 126/78; PULSE 76
[2023-12-20] MEDS: ZINC OXIDE PASTE (Z-GUARD) 1 APPLIC TOPICAL SCH (12:12)
--- NOTE | 2023-12-20 13:30 | P.DS ---
Providers Date of admission: 12/17/23 19:06 Expected date of discharge: 12/20/23 Attending physician: Rohit Pena MD Consults: 12/17/23 19:01 Consult Physician Urgent Consulting Provider: [facility] Consult Reason/Comments: Elevated troponin, hypomagnesemia Do you want consulting provider notified?: Yes 12/18/23 02:47 Consult Physician Urgent Consulting Provider: Macho Claudio Consult Reason/Comments: CKD Do you want consulting provider notified?: Yes Primary care physician: Jim Marin 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 Chest x- ray in the emergency room was unremarkable. EKG revealed sinus rhythm at [address]/T wave changes noted. Vital signs significant for hypertension. Patient was on room air. Laboratory evaluation was remarkable for lactic acid 3.2, magnesium 0.9, troponin 0.115, WBC count 18.2, hemoglobin 11.2, sodium 135, BUN 100 with creatinine 2.38 (at baseline). Nephrology and cardiology consulted. Patient was started on IV Lasix. Being discharged home with oral torsemide. Steroids have been decreased to 20 mg daily. Patient recently completed a 10-day course of oral ciprofloxacin. Follow-up outpatient with nephrology in a week, repeat blood work in 3 days. Outpatient follow-up with cardiology in 1 to 2 weeks. Patient seen and examined at bedside. Vital signs reviewed and stable. General: Nontoxic, no distress, appears at stated age Derm: Warm, dry, lateral lower extremity venous dermatitis Head: Atraumatic, normocephalic, symmetric Eyes: EOMI, no lid lag, anicteric sclera Mouth: No lip lesion, mucus membranes moist Cardiovascular: S1S2 reg, systolic murmur Lungs: CTA bilateral, no rhonchi, no rales, no accessory muscle use Abdominal: Soft, nontender to palpation, no guarding, no appreciable organomegaly Ext: No gross muscle atrophy, plus pitting edema, no contractures Neuro: CN II-XI grossly intact, no focal neuro deficits Psych: Alert, oriented, appropriate affect A total of 33 minutes of time were spent preparing this complex discharge summary. Patient was discharged on 12/20/2023 at 1325. Patient Condition at Discharge: Stable Plan - Discharge Summary New Discharge Prescriptions: New predniSONE [Deltasone] 20 mg PO DAILY #30 tab amLODIPine [Norvasc] 5 mg PO DAILY #60 tab Continue Isosorbide Mononitrate ER [Imdur] 60 mg PO DAILY #30 tab.er.24h Atorvastatin [Lipitor] 40 mg PO HS #30 tab Metoprolol Tartrate [Lopressor] 50 mg PO BID-W/MEALS Magnesium Oxide [Mag-Ox] 400 mg PO DAILY Calcium Acetate [PhosLo] 667 mg PO TID-W/MEALS Acetaminophen Tab [Tylenol] 650 mg PO Q8H PRN PRN Reason: Pain Aspirin 81 mg PO DAILY #60 tab Pantoprazole [Protonix] 40 mg PO DAILY 30 Days #30 tab Insulin NPH Hum/Reg Insulin Hm [humuLIN 70/30 Kwikpen] 10 unit SQ AC-SUPPER Insulin NPH Hum/Reg Insulin Hm [humuLIN 70/30 Kwikpen] 20 unit SQ AC-BRKFST Torsemide [Demadex] 40 mg PO DAILY #90 tab Changed Potassium Chloride ER [K-Dur 20] 40 meq PO DAILY #60 tab Discontinued Ciprofloxacin HCl [Cipro] 500 mg PO Q12HR 10 Days #20 tab predniSONE 50 mg PO DAILY Discharge Medication List Atorvastatin [Lipitor] 40 mg PO HS #30 tab 08/17/20 [Rx] Isosorbide Mononitrate ER [Imdur] 60 mg PO DAILY #30 tab.er.24h 08/17/20 [Rx] Pantoprazole [Protonix] 40 mg PO DAILY 30 Days #30 tab 05/10/23 [Rx] Acetaminophen Tab [Tylenol] 650 mg PO Q8H PRN 11/17/23 [History] Calcium Acetate [PhosLo] 667 mg PO TID-W/MEALS 11/17/23 [History] Magnesium Oxide [Mag-Ox] 400 mg PO DAILY 11/17/23 [History] Metoprolol Tartrate [Lopressor] 50 mg PO BID-W/MEALS 11/17/23 [History] Aspirin 81 mg PO DAILY #60 tab 11/23/23 [Rx] Insulin NPH Hum/Reg Insulin Hm [humuLIN 70/30 Kwikpen] 10 unit SQ AC-SUPPER 12/17/23 [History] Insulin NPH Hum/Reg Insulin Hm [humuLIN 70/30 Kwikpen] 20 unit SQ AC-BRKFST 12/17/23 [History] Potassium Chloride ER [K-Dur 20] 40 meq PO DAILY #60 tab 12/20/23 [Rx] Torsemide [Demadex] 40 mg PO DAILY #90 tab 12/20/23 [Rx] amLODIPine [Norvasc] 5 mg PO DAILY #60 tab 12/20/23 [Rx] predniSONE [Deltasone] 20 mg PO DAILY #30 tab 12/20/23 [Rx] Follow up Appointment(s)/Referral(s): Jim Anderson MD [Primary Care Provider] - 1-2 days Residential [facility] [NON-STAFF] - Macho Claudio DO [STAFF PHYSICIAN] - 1 Week Connor Haddad MD [STAFF PHYSICIAN] - 1 Week Ambulatory/Diagnostic Orders: Basic Metabolic Panel [LAB.AMB] Time Frame: 3 Days, Location: None Selected Magnesium [LAB.AMB] Time Frame: 3 Days, Location: None Selected Activity/Diet/Wound Care/Special Instructions: 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 Blood work in 3 days. Discharge Disposition: HOME WITH HOME HEALTH SERVICES
== END 2023-12-20 15:32 | disposition home health service (06) | DRG 641 ==
LOC: EC 14:02 → 3SCARD 19:06
PROVIDERS: ADMIT Student in an Organized Health Care Education/Training Program; ATTEND Student in an Organized Health Care Education/Training Program
DX: E83.42 Hypomagnesemia (principal); B37.49 Other urogenital candidiasis; I13.0 Hypertensive heart and chronic kidney disease with heart failure and stage 1 through stage 4 chronic kidney disease, or unspecified chronic kidney disease; I42.9 Cardiomyopathy, unspecified; I50.32 Chronic diastolic (congestive) heart failure; E87.20 Acidosis, unspecified; L97.822 Non-pressure chronic ulcer of other part of left lower leg with fat layer exposed; E78.5 Hyperlipidemia, unspecified; E11.22 Type 2 diabetes mellitus with diabetic chronic kidney disease; T38.0X5A Adverse effect of glucocorticoids and synthetic analogues, initial encounter; T50.2X5A Adverse effect of carbonic-anhydrase inhibitors, benzothiadiazides and other diuretics, initial encounter; E11.622 Type 2 diabetes mellitus with other skin ulcer; I25.10 Atherosclerotic heart disease of native coronary artery without angina pectoris; R79.89 Other specified abnormal findings of blood chemistry; I25.2 Old myocardial infarction; I87.2 Venous insufficiency (chronic) (peripheral); N18.32 Chronic kidney disease, stage 3b; Z79.4 Long term (current) use of insulin; X58.XXXA Exposure to other specified factors, initial encounter; L98.491 Non-pressure chronic ulcer of skin of other sites limited to breakdown of skin; L98.492 Non-pressure chronic ulcer of skin of other sites with fat layer exposed; S51.812A Laceration without foreign body of left forearm, initial encounter; Z79.52 Long term (current) use of systemic steroids; Z79.82 Long term (current) use of aspirin; Z79.899 Other long term (current) drug therapy; Z82.49 Family history of ischemic heart disease and other diseases of the circulatory system; Z98.61 Coronary angioplasty status; Z87.891 Personal history of nicotine dependence
CPT/HCPCS: 36415; 51702; 71046; 74176; 80048; 80053; 81001; 83605; 83735; 83880; 84484; 85025; 85027; 85610; 85730; 93005; 96361; 96365; 96366; 99285

== ENCOUNTER 2024-03-31 14:54 | Inpatient (IN) | payer MEDICARE ==
--- NOTE | 2024-03-31 17:13 | ED ---
Male Urogenital HPI - General Source: patient, RN notes reviewed Mode of arrival: wheelchair Limitations: no limitations <Shyla Harmon - Last Filed: 03/31/24 17:14> - General Source: patient, RN notes reviewed, old records reviewed Mode of arrival: wheelchair Limitations: no limitations - History of Present Illness MD Complaint: other (Right-sided abdominal pain flank pain groin pain) Location: right inguinal region, abdomen Severity: severe Severity scale (1-10): 8 Quality: sharp Consistency: constant Improves with: none Worsens with: none Reports: denies other symptoms <Kolton Guillermo - Last Filed: 04/04/24 17:34> - General Chief complaint: Urogenital Stated complaint: blood in urine/off of nut Time Seen by Provider: 03/31/24 15:10 - History of Present Illness Initial comments: Quick note- this is a 73 year old male who presents emergency department accompanied by his for chief complaint of right testicular pain. Patient states that approximately 2 days ago he accidentally sat on his right testicle that is been causing him pain. He denies fevers, chills, nausea, vomiting, abdominal pain. Denies urinary symptoms. (Shyla Harmon) This is a 73-year-old male to the ER for evaluation of significant right flank pain right-sided thigh pain right groin pain. Severe (Kolton Guillermo) - Related Data Home Medications Medication Instructions Recorded Confirmed Acetaminophen Tab [Tylenol] 650 mg PO Q8H PRN 11/17/23 04/01/24 Magnesium Oxide [Mag-Ox] 400 mg PO DAILY 11/17/23 04/01/24 Metoprolol Tartrate [Lopressor] 50 mg PO BID-W/MEALS 11/17/23 04/01/24 Insulin NPH Hum/Reg Insulin Hm 10 unit SQ AC-SUPPER 12/17/23 04/01/24 [humuLIN 70/30 Kwikpen] Insulin NPH Hum/Reg Insulin Hm 20 unit SQ AC-BRKFST 12/17/23 04/01/24 [humuLIN 70/30 Kwikpen] amLODIPine [Norvasc] 5 mg PO DAILY 04/01/24 04/01/24 metOLazone [Zaroxolyn] 5 mg PO Q48H 04/01/24 04/01/24 mycophenolate mofetiL [Cellcept] 250 mg PO BID 04/01/24 04/01/24 Previous Rx's Medication Instructions Recorded Atorvastatin [Lipitor] 40 mg PO HS #30 tab 08/17/20 Isosorbide Mononitrate ER [Imdur] 60 mg PO DAILY #30 tab.er.24h 08/17/20 Pantoprazole [Protonix] 40 mg PO DAILY 30 Days #30 tab 05/10/23 Potassium Chloride ER [K-Dur 20] 40 meq PO DAILY #60 tab 12/20/23 Torsemide [Demadex] 40 mg PO DAILY #90 tab 12/20/23 predniSONE [Deltasone] 20 mg PO DAILY #30 tab 12/20/23 Aspirin 81 mg PO DAILY 30 Days #30 tab 04/03/24 DAPTOmycin [Cubicin] 549 mg IVPB Q24HR each 04/03/24 HYDROcodone/APAP 5-325MG [Clever 1 tab PO Q6HR PRN 3 Days #12 tab 04/03/24 5-325] Tamsulosin [Flomax] 0.4 mg PO PC-BRKFST 30 Days #30 cap 04/03/24 Allergies Allergy/AdvReac Type Severity Reaction Status Date / Time No Known Allergies Allergy Verified 04/01/24 09:29 Review of Systems ROS Other: All systems not noted in ROS Statement are negative. <Shyla Harmon - Last Filed: 03/31/24 17:14> ROS Other: All systems not noted in ROS Statement are negative. <Kolton Guillermo - Last Filed: 04/04/24 17:34> ROS Statement: Those systems with pertinent positive or pertinent negative responses have been documented in the HPI. 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 Past Psychological History: No Psychological Hx Reported Smoking Status: Former smoker Past Alcohol Use History: Rare Past Drug Use History: Marijuana - Past Family History Father Family Medical History: Diabetes Mellitus, Myocardial Infarction ([place]) Additional Family Medical History / Comment(s): Had leg amputation Mother History Unknown: Yes Family Medical History: No Reported History Sister(s) Family Medical History: Diabetes Mellitus Additional Family Medical History / Comment(s): 1 sister had arm amputated due to diabetes <Shyla Harmon - Last Filed: 03/31/24 17:14> General Exam Limitations: no limitations <Shyla Harmon - Last Filed: 03/31/24 17:14> General appearance: alert, in no apparent distress, anxious Head exam: Present: atraumatic, normocephalic, normal inspection Eye exam: Present: normal appearance, PERRL, EOMI. Absent: scleral icterus, conjunctival injection, periorbital swelling ENT exam: Present: normal exam, mucous membranes moist Neck exam: Present: normal inspection. Absent: tenderness, meningismus, lymphadenopathy Respiratory exam: Present: normal lung sounds bilaterally. Absent: respiratory distress, wheezes, rales, rhonchi, stridor Cardiovascular Exam: Present: regular rate, normal rhythm, normal heart sounds. Absent: systolic murmur, diastolic murmur, rubs, gallop, clicks GI/Abdominal exam: Present: soft, normal bowel sounds. Absent: distended, tenderness, guarding, rebound, rigid Extremities exam: Present: normal inspection, full ROM, normal capillary refill. Absent: tenderness, pedal edema, joint swelling, calf tenderness Back exam: Present: normal inspection Neurological exam: Present: alert, oriented X3, CN II-XII intact Psychiatric exam: Present: normal affect, normal mood Skin exam: Present: warm, dry, intact, normal color. Absent: rash <Kolton Guillermo - Last Filed: 04/04/24 17:34> - General Exam Comments Initial Comments: Visual Physical Exam Vital signs reviewed General: Well-appearing, nontoxic, no acute distress. Head: Normocephalic, atraumatic Eyes: PERRLA, EOMI ENT: Airway patent Chest: Nonlabored breathing Skin: No visual rash, normal skin tone Neuro: Alert and oriented 3 Musculoskeletal: No gross abnormalities (Stieler,Shyla) Course <Kolton Guillermo - Last Filed: 04/04/24 17:34> Vital Signs 03/31/24 03/31/24 04/01/24 15:27 22:26 00:00 Temperature 97.8 F 98.2 F 98.6 F Pulse Rate 98 99 Pulse Rate [ 99 Cabinet Maker ] Respiratory 18 18 20 Rate Blood Pressure 125/75 136/98 Blood Pressure 136/91 [Right Arm] O2 Sat by Pulse 97 95 98 Oximetry 04/01/24 04/01/24 04/01/24 04:00 08:22 12:43 Temperature Pulse Rate 81 74 Pulse Rate [ 100 Cabinet Maker ] Respiratory 16 18 16 Rate Blood Pressure 121/95 110/74 Blood Pressure 149/94 [Right Arm] O2 Sat by Pulse 98 97 96 Oximetry 04/01/24 13:46 Temperature Pulse Rate 80 Pulse Rate [ Cabinet Maker ] Respiratory 16 Rate Blood Pressure 127/84 Blood Pressure [Right Arm] O2 Sat by Pulse 98 Oximetry - Reevaluation(s) Reevaluation #1: 03/31/24 19:12 Medical records reviewed (Kolton Guillermo) Reevaluation #2: 03/31/24 21:42 Patient symptoms unchanged (Kolton Guillermo) Reevaluation #3: 03/31/24 21:43 Patient informed of results and questions answered (Kolton Guillermo) Reevaluation #4: Was pt. sent in by a medical professional or institution (, PA, SERVICE CASHIER, urgent care, hospital, or residential...) When possible be specific @ -no Did you speak to anyone other than the patient for history (EMS, parent, family, police, friend...)? What history was obtained from this source @ -no Did you review nursing and triage notes (agree or disagree)? Why? @ -agree Are old charts reviewed (outside hosp., previous admission, EMS record, old EKG, old radiological studies, urgent care reports/EKG's, residential records)? Report findings @ -yes Differential Diagnosis (chest pain, altered mental status, abdominal pain women, abdominal pain men, vaginal bleeding, weakness, fever, dyspnea, syncope, headache, dizziness, GI bleed, back pain, seizure, CVA, palpatations, mental health, musculoskeletal)? @ -prior EKG interpreted by me (3pts min.). @ -yes X-rays interpreted by me (1pt min.). @ -yes negative for acute disease CT interpreted by me (1pt min.). @ -Positive for significant cellulitis of the right groin U/S interpreted by me (1pt. min.). @ -no What testing was considered but not performed or refused? (CT, X-rays, U/S, labs)? Why? @ -none What meds were considered but not given or refused? Why? @ -none Did you discuss the management of the patient with other professionals (professionals i.e. , PA, SERVICE CASHIER, lab, RT, psych nurse, social services coordinator, road production general manager, teacher, aviation tactical readiness officer, caser up)? Give summary @ -no Was smoking cessation discussed for >3mins.? @ -no Was critical care preformed (if so, how long)? @ -no Were there social determinants of health that impacted care today? How? (Homelessness, low income, unemployed, alcoholism, drug addiction, transportation, low edu. Level, literacy, decrease access to med. care, fpc, rehab)? @ -none Was there de-escalation of care discussed even if they declined (Discuss DNR or withdrawal of care, Hospice)? DNR status @ -no What co-morbidities impacted this encounter? (DM, HTN, Smoking, COPD, CAD, Cancer, CVA, ARF, Chemo, Hep., AIDS, mental health diagnosis, sleep apnea, morbid obesity)? @ -none Was patient admitted / discharged? Hospital course, mention meds given and route, prescriptions, significant lab abnormalities, going to OR and other pertinent info. @ - 73 male to the ER for evaluation patient presents the emergency room today for for evaluation regards to right groin pain right abdominal pain with significant right groin cellulitis. Patient will be placed on antibiotics and admitted for further evaluation and management Right groin cellulitis significant Undiagnosed new problem with uncertain prognosis? @ -no Drug Therapy requiring intensive monitoring for toxicity (Heparin, Nitro, Insulin, Cardizem)? @ -no Were any procedures done? @ -no Diagnosis/symptom? @ -Right groin cellulitis Acute, or Chronic, or Acute on Chronic? @ -Acute Uncomplicated (without systemic symptoms) or Complicated (systemic symptoms)? @ -Complicated Side effects of treatment? @ -no Exacerbation, Progression, or Severe Exacerbation? @ -exacerbation Poses a threat to life or bodily function? How? (Chest pain, [place], [place], pneumonia, PE, COPD, DKA, ARF, appy, cholecystitis, CVA, Diverticulitis, Homicidal, Suicidal, threat to staff... and all critical care pts) @ -yes extremes of age (Kolton Guillermo) Reevaluation #5: Differential Abdominal Pain Men: Appendicitis, cholecystitis, diverticulosis, ischemic bowel, pancreatitis, hepatitis, UTI, gastroenteritis, AAA, incarcerated hernia, bowel obstruction, constipation, inflammatory bowel, hepatitis, peptic ulcer disease, splenic infarction, perforated viscus, testicular torsion, this is not meant to be an all-inclusive list (Kolton Guillermo) - Consultations Consultation #1: Spoke with sound who agrees to admit this patient (Kolton Guillermo) Medical Decision Making <Shyla Harmon - Last Filed: 03/31/24 17:14> - Lab Data Result diagrams: 04/03/24 06:31 04/03/24 06:31 - EKG Data -: EKG Interpreted by Me (EKG is sinus tachycardia 110 NH 146 QRS 96 QTc 411) - Radiology Data Radiology results: report reviewed (CT abdomen pelvis positive for right inguinal cellulitis and inflammation), image reviewed <Kolton Guillermo - Last Filed: 04/04/24 17:34> - Medical Decision Making I completed the quick note portion of this chart signed Shyla Harmon PA-C (Shyla Harmon) 73 male to the ER for evaluation patient presents the emergency room today for for evaluation regards to right groin pain right abdominal pain with significant right groin cellulitis. Patient will be placed on antibiotics and admitted for further evaluation and management (Kolton Guillermo) - Lab Data Lab Results 03/31/24 03/31/24 03/31/24 Range/Units 19:29 19:29 19:29 WBC 16.5 H (3.8-10.6) k/uL RBC 4.92 (4.30-5.90) m/uL Hgb 14.7 (13.0-17.5) gm/dL Hct 42.8 (39.0-53.0) % MCV 87.0 (80.0-100.0) fL MCH 29.8 (25.0-35.0) pg MCHC 34.3 (31.0-37.0) g/dL RDW 13.9 (11.5-15.5) % Plt Count 303 (150-450) k/uL MPV 8.5 Neutrophils % 92 % Lymphocytes % 3 % Monocytes % 4 % Eosinophils % 0 % Basophils % 0 % Neutrophils # 15.2 H (1.3-7.7) k/uL Lymphocytes # 0.5 L (1.0-4.8) k/uL Monocytes # 0.6 (0-1.0) k/uL Eosinophils # 0.0 (0-0.7) k/uL Basophils # 0.0 (0-0.2) k/uL PT 10.4 (10.0-12.5) sec INR 0.9 (<1.2) APTT 24.8 (22.0-30.0) sec D-Dimer 3.82 H (<0.60) mg/L FEU Sodium 130 L (137-145) mmol/L Potassium 3.9 (3.5-5.1) mmol/L Chloride 83 L (98-107) mmol/L Carbon Dioxide 36 H (22-30) mmol/L Anion Gap 11 mmol/L BUN 100 H (9-20) mg/dL Creatinine 2.31 H (0.66-1.25) mg/dL Est GFR (CKD-EPI)AfAm 31 (>60 ml/min/1.73 sqM) Est GFR (CKD-EPI)NonAf 27 (>60 ml/min/1.73 sqM) Glucose 356 H (74-99) mg/dL Lactic Ac Sepsis Rflx Plasma Lactic Acid Andrea (0.7-2.0) mmol/L Calcium 8.8 (8.4-10.2) mg/dL Phosphorus 3.7 (2.5-4.5) mg/dL Magnesium 1.1 L (1.6-2.3) mg/dL Total Bilirubin 0.9 (0.2-1.3) mg/dL AST 32 (17-59) U/L ALT 30 (4-49) U/L Alkaline Phosphatase 163 H (38-126) U/L Troponin I (0.000-0.034) ng/mL NT-Pro-B Natriuret Pep 07196 pg/mL Total Protein 6.3 (6.3-8.2) g/dL Albumin 3.3 L (3.5-5.0) g/dL 03/31/24 03/31/24 03/31/24 Range/Units 19:29 19:29 20:10 WBC (3.8-10.6) k/uL RBC (4.30-5.90) m/uL Hgb (13.0-17.5) gm/dL Hct (39.0-53.0) % MCV (80.0-100.0) fL MCH (25.0-35.0) pg MCHC (31.0-37.0) g/dL RDW (11.5-15.5) % Plt Count (150-450) k/uL MPV Neutrophils % % Lymphocytes % % Monocytes % % Eosinophils % % Basophils % % Neutrophils # (1.3-7.7) k/uL Lymphocytes # (1.0-4.8) k/uL Monocytes # (0-1.0) k/uL Eosinophils # (0-0.7) k/uL Basophils # (0-0.2) k/uL PT (10.0-12.5) sec INR (<1.2) APTT (22.0-30.0) sec D-Dimer (<0.60) mg/L FEU Sodium (137-145) mmol/L Potassium (3.5-5.1) mmol/L Chloride (98-107) mmol/L Carbon Dioxide (22-30) mmol/L Anion Gap mmol/L BUN (9-20) mg/dL Creatinine (0.66-1.25) mg/dL Est GFR (CKD-EPI)AfAm (>60 ml/min/1.73 sqM) Est GFR (CKD-EPI)NonAf (>60 ml/min/1.73 sqM) Glucose (74-99) mg/dL Lactic Ac Sepsis Rflx Y Plasma Lactic Acid Andrea 4.1 H* (0.7-2.0) mmol/L Calcium (8.4-10.2) mg/dL Phosphorus (2.5-4.5) mg/dL Magnesium (1.6-2.3) mg/dL Total Bilirubin (0.2-1.3) mg/dL AST (17-59) U/L ALT (4-49) U/L Alkaline Phosphatase (38-126) U/L Troponin I 0.175 H* (0.000-0.034) ng/mL NT-Pro-B Natriuret Pep pg/mL Total Protein (6.3-8.2) g/dL Albumin (3.5-5.0) g/dL Disposition <Shyla Harmon - Last Filed: 03/31/24 17:14> Is patient prescribed a controlled substance at d/c from ED?: No Time of Disposition: 21:20 <Kolton Guillermo - Last Filed: 04/04/24 17:34> Clinical Impression: Generalized weakness, Acute kidney injury, CKD (chronic kidney disease), Leukocytosis, Cellulitis of right abdominal wall Disposition: ADMITTED IP TO THIS HOSP Condition: Fair
--- NOTE | 2024-03-31 18:35 | US ---
EXAMINATION TYPE: US scrotum with doppler. Grayscale and color Doppler Duplex imaging performed of stu ortega scrotum. DATE OF EXAM: 03/31/2024 COMPARISON: CT 12/18/2023 CLINICAL INDICATION: Male, 73 years old with history of right testicular pain; Patient states right t esticular pain for a few days. States he also feels a lump. Also has kidney infection. EXAM MEASUREMENTS: TESTICLES: Right Testicle: 4.2 x 1.9 x 2.7 cm Left Testicle: 3.6 x 1.9 x 2.7 cm EPIDIDYMIS HEAD: Right Epididymis: 1.0 x 0.9 x 0.9 cm. The epididymis appears heterogeneous. There is also a 0.6 x 0 .4cm anechoic area seen within. Left Epididymis: 1.0 x 0.8 x 0.7 cm . The epididymis appears heterogeneous. Doppler performed to assess for testicular vascularity; good bilateral color flow and waveforms are s een. There is no evidence of testicular torsion. Presence of hydroceles: Small bilateral. There is also a 1.4cm anechoic fluid collection seen midlin e. Presence of varicoceles: No IMPRESSION: 1. No suspicious ultrasound abnormality testicular ultrasound [facility], Workstation: [facility], 03/31/2024 6:32 PM
[2024-03-31] MEDS: MORPHINE SULFATE 4 MG/ML SYRINGE IV STA (19:37)
[2024-03-31] MEDS: ONDANSETRON 4 MG/2 ML VIAL IVP STA (19:38)
[2024-03-31] MEDS: SODIUM CHLORIDE 0.9% 1,000 ML IV STA (19:38)
[2024-03-31 19:44] LABS: Basophils % (A) 0 %; Eosinophils % (A) 0 %; HCT 42.8 % (39.0-53.0); HGB 14.7 gm/dL (13.0-17.5); Lymphocytes # (A) 0.5 k/uL (1.0-4.8); Lymphocytes % (A) 3 %; MCH 29.8 pg (25.0-35.0); MCHC 34.3 g/dL (31.0-37.0); Mean Platelet Volume 8.5; Monocytes # (A) 0.6 k/uL (0-1.0); Monocytes % (A) 4 %; Neutrophils # (A) 15.2 k/uL (1.3-7.7); Neutrophils % (A) 92 %; Platelet Count 303 k/uL (150-450); RBC 4.92 m/uL (4.30-5.90); RDW 13.9 % (11.5-15.5); WBC 16.5 k/uL (3.8-10.6)
[2024-03-31 19:55] LABS: ALT 30 U/L (4-49); AST 32 U/L (17-59); African American GFR (CKD) 31 (>60 ml/min/1.73 sqM); Albumin 3.3 g/dL (3.5-5.0); Alkaline Phosphatase 163 U/L (38-126); Anion Gap 11 mmol/L; Blood Urea Nitrogen 100 mg/dL (9-20); Calcium 8.8 mg/dL (8.4-10.2); Carbon Dioxide 36 mmol/L (22-30); Chloride 83 mmol/L (98-107); Glucose 356 mg/dL (74-99); Magnesium 1.1 mg/dL (1.6-2.3); Non-African American GFR(CKD) 27 (>60 ml/min/1.73 sqM); Phosphorus 3.7 mg/dL (2.5-4.5); Potassium 3.9 mmol/L (3.5-5.1); Sodium 130 mmol/L (137-145); Total Bilirubin 0.9 mg/dL (0.2-1.3); Total Protein 6.3 g/dL (6.3-8.2)
[2024-03-31 20:03] LABS: NT-Pro-B-Type Natriuretic Pept 10700 pg/mL
[2024-03-31 20:04] LABS: INR 0.9 (<1.2); Partial Thromboplastin Time 24.8 sec (22.0-30.0); Prothrombin Time 10.4 sec (10.0-12.5)
[2024-03-31] MEDS ORDERED: VANCOMYCIN IV PER PHARMACY 1 EACH MISC MISCELLANE PRN (20:20)
--- NOTE | 2024-03-31 20:25 | CT ---
EXAMINATION TYPE: CT abdomen pelvis wo con DATE OF EXAM: 03/31/2024 COMPARISON: 12/18/2023 INDICATION: c/o right testicular bleeding and swelling DLP: 818.6 mGycm, Automated exposure control for dose reduction was used. CONTRAST: 0 mL of Isovue 300. Study performed without Oral Contrast TECHNIQUE: Axial images were obtained from above the diaphragm to the pubic rami in the axial plane a t 5 mm thick sections. Reconstructed images are reviewed on the computer in the coronal plane. FINDINGS: Limited CT sections are obtained the lung bases. The lung bases are clear. CT ABDOMEN: Liver: Normal Spleen: Normal Pancreas: Normal Adrenal glands: Left adrenal gland is mildly prominent 1.5 cm. Right adrenal gland appears unremarkab le Gallbladder: Normal Kidneys: No masses are evident. Bilateral hydronephrosis is present. Hydroureter is evident. Hydroure ter extends to the urinary bladder. No obstructing etiology is identified. No renal or ureteral stone s are evident. 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 Inferior vena cava: Normal. CT PELVIS: Loops of bowel within the abdomen and pelvis are normal. Diverticular changes are within the sigmoid colon. No adjacent inflammatory changes to suggest acute diverticulitis is evident. This study is without oral contrast limiting pelvic evaluation. Appendix: Normal as visualized. Urinary bladder: Distended Genitourinary structures: Slightly prominent prostate. Scrotum appears normal. No large hydrocele is evident. Testicular density appears homogenous. There is a calcification in what appears to be the po sterior left testicle. Osseous structures: No suspicious lytic or sclerotic lesions. Right inguinal region: There is a low density curvilinear collection. This could be hematoma. Strandi ng is present through the right inguinal region. There are scattered prominent lymph nodes present mo re severe at the right inguinal region IMPRESSION: 1. Stranding within the right inguinal region. There are regional lymph nodes present. Curvilinear h ematoma is not excluded. 2. Diverticulosis without acute diverticulitis. 3. Bilateral hydronephrosis and hydroureter extending to the urinary bladder. No etiology for obstruc tion is identified. [facility], , 03/31/2024 8:23 PM
[2024-03-31] MEDS: AMPICILLIN-SULBACTAM 3 GM in SODIUM CHLORIDE 0.9% 100 ML IVPB STA (20:28)
[2024-03-31] MEDS: VANCOMYCIN 1,500 MG in SODIUM CHLORIDE 0.9% 500 ML 500 ML IVPB STA (21:22)
[2024-03-31] MEDS ORDERED: HEPARIN SODIUM 1,000 UN/ML (10ML VL) IV PRN (21:41)
[2024-03-31] MEDS ORDERED: NALOXONE 0.4 MG/ML 1 ML VIAL IV PRN (22:30)
[2024-03-31] MEDS ORDERED: ONDANSETRON 4 MG/2 ML VIAL IVP PRN (22:30)
[2024-03-31] MEDS ORDERED: MORPHINE SULFATE 4 MG/ML SYRINGE IV PRN (22:30)
[2024-03-31] MEDS ORDERED: HEPARIN SOD,PORK IN 0.45% NACL 25,000 UNIT in 0.45% NACL 1 250ML.BAG IV SCH (23:15)
[2024-03-31] MEDS: HEPARIN SOD,PORK IN 0.45% NACL 25,000 UNIT in 0.45% NACL 1 250ML.BAG IV SCH (23:42)
[2024-03-31] MEDS: HEPARIN SODIUM 1,000 UN/ML (10ML VL) IV ONE (23:42)
[2024-03-31] MEDS: SODIUM CHLORIDE 0.9% 1,000 ML IV SCH (23:43)
--- NOTE | 2024-04-01 03:46 | US ---
EXAM: US Duplex Bilateral Lower Extremities Veins CLINICAL HISTORY: ITS.REASON US Reason: DVT TECHNIQUE: Real-time duplex ultrasound scan of the bilateral lower extremity veins integrating B-mode two-dimensional vascular structure, Doppler spectral analysis, color flow Doppler imaging and compression. COMPARISON: None. FINDINGS: Reportedly limited exam due to patient body habitus and swelling of the extremities. Right deep veins: Unremarkable. No DVT in the right common femoral, femoral, proximal deep femoral or popliteal veins. The veins demonstrate normal color flow, are normally compressible, with normal phasic flow and/or augmentation response. Right superficial veins: Unremarkable. No thrombus in the visualized right great saphenous vein. Left deep veins: Unremarkable. No DVT in the left common femoral, femoral, proximal deep femoral or popliteal veins. The veins demonstrate normal color flow, are normally compressible, with normal phasic flow and/or augmentation response. Left superficial veins: Unremarkable. No thrombus in the visualized left great saphenous vein. Soft tissues: No acute findings. No popliteal cyst. Other findings: A 2.9 x 1.2 cm enlarged right groin lymph node identified.. IMPRESSION: No conclusive evidence of DVT demonstrated in the right/left lower extremity. An enlarged 2.9 x 1.2 cm right groin lymph node. .
[2024-04-01 06:07] LABS: Appearance,Urine Clear (Clear); Bilirubin,Urine Negative (Negative); Blood,Urine Small (Negative); Color,Urine Colorless; Glucose,Urine (UA) 3+ (Negative); Ketones,Urine Negative (Negative); Leukocyte Esterase,Urine Negative (Negative); Nitrite,Urine Negative (Negative); PH, Urine 7.5 (5.0-8.0); Protein,Urine 1+ (Negative); RBC,Urine 1 /hpf (0-5); Specific Gravity,Urine 1.011 (1.001-1.035); Squamous Epithelial Cell,Urine <1 /hpf (0-4); Urobilinogen,Urine <2.0 mg/dL (<2.0); WBC,Urine 1 /hpf (0-5)
[2024-04-01 06:48] LABS: Basophils % (A) 0 %; Eosinophils % (A) 0 %; HGB 13.7 gm/dL (13.0-17.5); Lymphocytes # (A) 0.5 k/uL (1.0-4.8); Lymphocytes % (A) 3 %; MCH 29.1 pg (25.0-35.0); MCHC 33.5 g/dL (31.0-37.0); MCV 86.8 fL (80.0-100.0); Mean Platelet Volume 8.5; Monocytes # (A) 0.5 k/uL (0-1.0); Monocytes % (A) 3 %; Neutrophils # (A) 16.7 k/uL (1.3-7.7); Neutrophils % (A) 93 %; Platelet Count 241 k/uL (150-450); RBC 4.72 m/uL (4.30-5.90); RDW 13.7 % (11.5-15.5); WBC 17.9 k/uL (3.8-10.6)
[2024-04-01] MEDS: METOPROLOL TARTRATE 50 MG TAB PO SCH (06:53)
--- NOTE | 2024-04-01 06:58 | P.HPIM ---
History of Present Illness H&P Date: 03/31/24 Chief Complaint: testicular pain 73-year-old with hypertension, CKD DM Patient coming in for right testicular and groin pain he reports that accidentally about 2 days ago he sat on his right testicle while trying to transfer to the toilet seat since then he is having progressive pain that is been getting worse he also reports seeing some blood in the toilet bowl not sure if it is mixed with urine or bowel movements. He denies any fevers chills denies nausea vomiting, denies any urinary changes denies any diarrhea denies any chest pain or trouble breathing Otherwise patient provides very limited history patient not at bedside at this time who brought him to the hospital earlier. Extensive workup done in the ED including some imaging of which nothing was con clusive except for CT of the abdomen revealing bilateral hydronephrosis review of systems Pertinent positives as noted in HPI. All other systems were reviewed and are negative on exam Constitutional: No acute distress Eyes: Anicteric sclerae, moist conjunctiva, Pupils equal round reactive to light ENMT: NC/AT Oropharynx clear, no erythema, or exudates Lungs: Clear to auscultation Clear to percussion Normal respiratory effort, no accessory muscle use Cardiovascular: Heart regular in rate and rhythm, No murmurs, gallops, or rubs +3 bilateral peripheral leg edema Abdominal: Soft Nontender, no guarding, rebound or rigidity Abdomen moving with respiration Normoactive bowel sounds Scrotum exam is unremarkable no tenderness upon palpation of bilateral testicles no active drainage or bleeding from the penis Skin: Chronic dermal stasis bilateral legs, increased redness over the left leg with warmth and tender to palpation. 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 Past Psychological History: No Psychological Hx Reported Additional Psychological History / Comment(s): Pt resides with his significant other. He is independent. Smoking Status: Former smoker Past Alcohol Use History: Rare Additional Past Alcohol Use History / Comment(s): Pt started smoking in 1959 and is over a ppd smoker. He has been cutting down. Past Drug Use History: Marijuana Additional Drug Use History / Comment(s): Pt states he smokes 5-6 marijuana joints per day. - Past Family History Father Family Medical History: Diabetes Mellitus, Myocardial Infarction ([place]) Additional Family Medical History / Comment(s): Had leg amputation Mother History Unknown: Yes Family Medical History: No Reported History Sister(s) Family Medical History: Diabetes Mellitus Additional Family Medical History / Comment(s): 1 sister had arm amputated due to diabetes Medications and Allergies Home Medications Medication Instructions Recorded Confirmed Type Atorvastatin [Lipitor] 40 mg PO HS #30 tab 08/17/20 12/17/23 Rx Isosorbide Mononitrate ER [Imdur] 60 mg PO DAILY #30 tab.er.24h 08/17/20 12/17/23 Rx Pantoprazole [Protonix] 40 mg PO DAILY 30 Days #30 tab 05/10/23 12/17/23 Rx Acetaminophen Tab [Tylenol] 650 mg PO Q8H PRN 11/17/23 12/17/23 History Calcium Acetate [PhosLo] 667 mg PO TID-W/MEALS 11/17/23 12/17/23 History Magnesium Oxide [Mag-Ox] 400 mg PO DAILY 11/17/23 12/17/23 History Metoprolol Tartrate [Lopressor] 50 mg PO BID-W/MEALS 11/17/23 12/17/23 History Aspirin 81 mg PO DAILY #60 tab 11/23/23 12/17/23 Rx Insulin NPH Hum/Reg Insulin Hm 10 unit SQ AC-SUPPER 12/17/23 12/17/23 History [humuLIN 70/30 Kwikpen] Insulin NPH Hum/Reg Insulin Hm 20 unit SQ AC-BRKFST 12/17/23 12/17/23 History [humuLIN 70/30 Kwikpen] Potassium Chloride ER [K-Dur 20] 40 meq PO DAILY #60 tab 12/20/23 Rx Torsemide [Demadex] 40 mg PO DAILY #90 tab 12/20/23 Rx amLODIPine [Norvasc] 5 mg PO DAILY #60 tab 12/20/23 Rx predniSONE [Deltasone] 20 mg PO DAILY #30 tab 12/20/23 Rx Allergies Allergy/AdvReac Type Severity Reaction Status Date / Time No Known Allergies Allergy Verified 03/31/24 15:29 Physical Exam Vitals: Vital Signs Temp Pulse Pulse Resp BP BP Pulse Ox 04/01/24 04:00 100 16 149/94 98 04/01/24 00:00 98.6 F 99 20 136/91 98 03/31/24 22:26 98.2 F 99 18 136/98 95 03/31/24 15:27 97.8 F 98 18 125/75 97 Intake and Output 03/31/24 03/31/24 04/01/24 14:59 22:59 06:59 Intake Total 20 20 Balance 20 20 Intake: IV 20 20 Invasive Line 2 20 20 Other: # Voids 1 Weight 90.718 kg 90.718 kg Results CBC & Chem 7: 03/31/24 19:29 03/31/24 19:29 Labs: Abnormal Lab Results - Last 24 Hours (Table) 03/31/24 03/31/24 03/31/24 Range/Units 19:29 19:29 19:29 WBC 16.5 H (3.8-10.6) k/uL Neutrophils # 15.2 H (1.3-7.7) k/uL Lymphocytes # 0.5 L (1.0-4.8) k/uL D-Dimer 3.82 H (<0.60) mg/L FEU Sodium 130 L (137-145) mmol/L Chloride 83 L (98-107) mmol/L Carbon Dioxide 36 H (22-30) mmol/L BUN 100 H (9-20) mg/dL Creatinine 2.31 H (0.66-1.25) mg/dL Glucose 356 H (74-99) mg/dL Plasma Lactic Acid Andrea (0.7-2.0) mmol/L Magnesium 1.1 L (1.6-2.3) mg/dL Alkaline Phosphatase 163 H (38-126) U/L Troponin I (0.000-0.034) ng/mL Albumin 3.3 L (3.5-5.0) g/dL Urine Protein (Negative) Urine Glucose (UA) (Negative) Urine Blood (Negative) 03/31/24 03/31/24 04/01/24 Range/Units 19:29 19:29 05:20 WBC (3.8-10.6) k/uL Neutrophils # (1.3-7.7) k/uL Lymphocytes # (1.0-4.8) k/uL D-Dimer (<0.60) mg/L FEU Sodium (137-145) mmol/L Chloride (98-107) mmol/L Carbon Dioxide (22-30) mmol/L BUN (9-20) mg/dL Creatinine (0.66-1.25) mg/dL Glucose (74-99) mg/dL Plasma Lactic Acid Andrea 4.1 H* (0.7-2.0) mmol/L Magnesium (1.6-2.3) mg/dL Alkaline Phosphatase (38-126) U/L Troponin I 0.175 H* (0.000-0.034) ng/mL Albumin (3.5-5.0) g/dL Urine Protein 1+ H (Negative) Urine Glucose (UA) 3+ H (Negative) Urine Blood Small H (Negative) Thrombosis Risk Factor Assmnt - Choose All That Apply Any of the Below Risk Factors Present?: No Other Risk Factors: Yes Each Risk Factor Represents 2 Points: Age 61-74 years Thrombosis Risk Factor Assessment Total Risk Factor Score: 2 Thrombosis Risk Factor Assessment Level: Low Risk Assessment and Plan Assessment: 73-year-old male chronic kidney disease, diabetes mellitus, hypertension coming in for right groin and testicular pain claims that he sat on his testicle about 2 days ago when he was transferring to the toilet seated discussed case with ED doctor and accepted the admission for bilateral hydronephrosis and right lower abdomen and groin pain for urology evaluation with anticipated length of stay less than 2 midnights Acute right lower abdominal and testicular pain Ultrasound of the scrotum with Doppler showed no suspicious abnormalities of both testicles Abdominal/pelvis CT scan showed stranding within the right inguinal region with lymphadenopathy with suspected hematoma Diverticulosis without acute diverticulitis Bilateral hydronephrosis and hydroureter extending to the urinary bladder no etiology seen UA showed some positive blood but otherwise not indicative of acute UTI General Surgery consult Monitor hemoglobin, currently unremarkable 14.7 PT 10.4 INR 0.9 unremarkable Sepsis cellulitis of the left lower extremity Follow-up cultures Vancomycin dosing by pharmacy Leukocytosis white count 16.5, tachycardia 98 Lactic acid initially 4.1 resolved with normal saline bolus of 1 L and gentle IV fluid hydration normal saline 75 cc/h Bilateral hydronephrosis Chronic kidney disease Based on CT scan findings Bilateral hydronephrosis and hydroureter extending to the urinary bladder no etiology seen Neurology consult Renal function at baseline BUN 100 creatinine 2.3 Potassium 3.9 unremarkable Hyponatremia Sodium 130 Gentle IV fluid hydration with normal saline 75 cc/h secondary to CHF monitor sodium Elevated D-dimer D-dimer 3.82 Possibly related to the trauma and the suspected hematoma that was found on CT scan Venous Doppler ultrasound of the bilateral lower extremity showed no evidence of DVT Chronic conditions Hypertension, diabetes mellitus, CKD, congestive heart failure Resume home medications for blood pressure and cardiac meds Insulin sliding scale Full code DVT prophylaxis mechanical secondary to concerns regarding possible right inguinal hematoma
[2024-04-01] MEDS ORDERED: DEXTROSE 50% SYRINGE 50 ML IVP PRN ×2 (07:08)
[2024-04-01 07:13] LABS: ALT 27 U/L (4-49); AST 28 U/L (17-59); African American GFR (CKD) 39 (>60 ml/min/1.73 sqM); Albumin 2.9 g/dL (3.5-5.0); Alkaline Phosphatase 144 U/L (38-126); Anion Gap 13 mmol/L; Blood Urea Nitrogen 83 mg/dL (9-20); Calcium 8.2 mg/dL (8.4-10.2); Carbon Dioxide 28 mmol/L (22-30); Chloride 91 mmol/L (98-107); Glucose 291 mg/dL (74-99); Magnesium 1.1 mg/dL (1.6-2.3); Non-African American GFR(CKD) 34 (>60 ml/min/1.73 sqM); Phosphorus 3.7 mg/dL (2.5-4.5); Sodium 132 mmol/L (137-145); Total Bilirubin 0.7 mg/dL (0.2-1.3); Total Protein 5.6 g/dL (6.3-8.2)
[2024-04-01 08:01] LABS: Potassium 2.7 mmol/L (3.5-5.1)
--- NOTE | 2024-04-01 08:02 | P.GSCN ---
History of Present Illness Consult date: 04/01/24 History of present illness: asked to see this 73-year-old gentleman for bilateral hydronephrosis and right testicular pain. He came in with a right testicular pain. He was seen in the emergency room and is admitted to the hospital. He had a CAT scan identifying right groin cellulitis and possible hematoma. He also has bilateral hydronephrosis and apparent full bladder. The patient is a very poor historian. Apparently he has had problems with renal insufficiency. He is not aware of any previous urologic history. He has had problems urinating for a long time. He has incontinence without awareness. He wears a diaper frequently.he has not been on any alpha blockers to help urination. He is unaware whether he empties his bladder. He states that he has had urine infections. His urine does not look infected he does have renal insufficiency. The computed tomography scan is reviewed and there is bilateral hydronephrosis and what looks like a full blad nihtin.white blood cell count is elevated. He is afebrile. He has no other urologic history. Review of Systems All systems: negative - Constitutional Denies fever, Denies weight loss - EENT Eyes: denies blurred vision Ears, nose, mouth and throat: Denies dysphagia - Cardiovascular Denies chest pain, Denies shortness of breath - Respiratory Denies cough, Denies 7 - Gastrointestinal Reports as per HPI - Genitourinary Denies dysuria, Denies hematuria - Integumentary Denies rash, Denies unusual bruising - Neurological Denies headaches, Denies syncope - Hematologic/Lymphatic Denies easy bleeding, Denies easy bruising Past Medical History Past Medical History: Heart Failure, Diabetes Mellitus, Hyperlipidemia, Hypertension, Renal Disease Additional Past Medical History / Comment(s): Cardiomyopathy, 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 Past Psychological History: No Psychological Hx Reported Additional Psychological History / Comment(s): Pt resides with his significant other. He is independent. Smoking Status: Former smoker Past Alcohol Use History: Rare Additional Past Alcohol Use History / Comment(s): Pt started smoking in 8 and is over a ppd smoker. He has been cutting down. Past Drug Use History: Marijuana Additional Drug Use History / Comment(s): Pt states he smokes 5-6 marijuana joints per day. - Past Family History Father Family Medical History: Diabetes Mellitus, Myocardial Infarction ([place]) Additional Family Medical History / Comment(s): Had leg amputation Mother History Unknown: Yes Family Medical History: No Reported History Sister(s) Family Medical History: Diabetes Mellitus Additional Family Medical History / Comment(s): 1 sister had arm amputated due to diabetes Medications and Allergies Home Medications Medication Instructions Recorded Confirmed Type Atorvastatin [Lipitor] 40 mg PO HS #30 tab 08/17/20 12/17/23 Rx Isosorbide Mononitrate ER [Imdur] 60 mg PO DAILY #30 tab.er.24h 08/17/20 12/17/23 Rx Pantoprazole [Protonix] 40 mg PO DAILY 30 Days #30 tab 05/10/23 12/17/23 Rx Acetaminophen Tab [Tylenol] 650 mg PO Q8H PRN 11/17/23 12/17/23 History Calcium Acetate [PhosLo] 667 mg PO TID-W/MEALS 11/17/23 12/17/23 History Magnesium Oxide [Mag-Ox] 400 mg PO DAILY 11/17/23 12/17/23 History Metoprolol Tartrate [Lopressor] 50 mg PO BID-W/MEALS 11/17/23 12/17/23 History Aspirin 81 mg PO DAILY #60 tab 11/23/23 12/17/23 Rx Insulin NPH Hum/Reg Insulin Hm 10 unit SQ AC-SUPPER 12/17/23 12/17/23 History [humuLIN 70/30 Kwikpen] Insulin NPH Hum/Reg Insulin Hm 20 unit SQ AC-BRKFST 12/17/23 12/17/23 History [humuLIN 70/30 Kwikpen] Potassium Chloride ER [K-Dur 20] 40 meq PO DAILY #60 tab 12/20/23 Rx Torsemide [Demadex] 40 mg PO DAILY #90 tab 12/20/23 Rx amLODIPine [Norvasc] 5 mg PO DAILY #60 tab 12/20/23 Rx predniSONE [Deltasone] 20 mg PO DAILY #30 tab 12/20/23 Rx Allergies Allergy/AdvReac Type Severity Reaction Status Date / Time No Known Allergies Allergy Verified 03/31/24 15:29 Surgical - Exam Vital Signs Temp Pulse Resp BP Pulse Ox 97.8 F 98 18 125/75 97 03/31/24 15:27 03/31/24 15:27 03/31/24 15:27 03/31/24 15:27 03/31/24 15:27 - General moderate distress, obese - ENT no hearing loss - Neck trachea midline - Respiratory normal expansion, normal respiratory effort - Cardiovascular Rhythm: regular - Abdomen right groin swelling and tenderness without crepitus. no fluctuance Abdomen: soft, non tender, distended - Genitourinary the patient is wearing an external condom catheter. He has a 30 g benign prostate, testes are descended and normal. - Integumentary no rash - Neurologic normal coordination - Psychiatric oriented to time, oriented to person, oriented to place, speech is normal, memory intact Results - Labs 04/01/24 06:34 03/31/24 19:29 Abnormal Lab Results - Last 24 Hours (Table) 03/31/24 03/31/24 03/31/24 Range/Units 19:29 19:29 19:29 WBC 16.5 H (3.8-10.6) k/uL Neutrophils # 15.2 H (1.3-7.7) k/uL Lymphocytes # 0.5 L (1.0-4.8) k/uL APTT (22.0-30.0) sec D-Dimer 3.82 H (<0.60) mg/L FEU Sodium 130 L (137-145) mmol/L Chloride 83 L (98-107) mmol/L Carbon Dioxide 36 H (22-30) mmol/L BUN 100 H (9-20) mg/dL Creatinine 2.31 H (0.66-1.25) mg/dL Glucose 356 H (74-99) mg/dL Plasma Lactic Acid Andrea (0.7-2.0) mmol/L Magnesium 1.1 L (1.6-2.3) mg/dL Alkaline Phosphatase 163 H (38-126) U/L Troponin I (0.000-0.034) ng/mL Albumin 3.3 L (3.5-5.0) g/dL Urine Protein (Negative) Urine Glucose (UA) (Negative) Urine Blood (Negative) 03/31/24 03/31/24 04/01/24 Range/Units 19:29 19:29 05:20 WBC (3.8-10.6) k/uL Neutrophils # (1.3-7.7) k/uL Lymphocytes # (1.0-4.8) k/uL APTT (22.0-30.0) sec D-Dimer (<0.60) mg/L FEU Sodium (137-145) mmol/L Chloride (98-107) mmol/L Carbon Dioxide (22-30) mmol/L BUN (9-20) mg/dL Creatinine (0.66-1.25) mg/dL Glucose (74-99) mg/dL Plasma Lactic Acid Andrea 4.1 H* (0.7-2.0) mmol/L Magnesium (1.6-2.3) mg/dL Alkaline Phosphatase (38-126) U/L Troponin I 0.175 H* (0.000-0.034) ng/mL Albumin (3.5-5.0) g/dL Urine Protein 1+ H (Negative) Urine Glucose (UA) 3+ H (Negative) Urine Blood Small H (Negative) 04/01/24 04/01/24 Range/Units 06:34 06:34 WBC 17.9 H (3.8-10.6) k/uL Neutrophils # 16.7 H (1.3-7.7) k/uL Lymphocytes # 0.5 L (1.0-4.8) k/uL APTT 33.4 H (22.0-30.0) sec D-Dimer (<0.60) mg/L FEU Sodium (137-145) mmol/L Chloride (98-107) mmol/L Carbon Dioxide (22-30) mmol/L BUN (9-20) mg/dL Creatinine (0.66-1.25) mg/dL Glucose (74-99) mg/dL Plasma Lactic Acid Andrea (0.7-2.0) mmol/L Magnesium (1.6-2.3) mg/dL Alkaline Phosphatase (38-126) U/L Troponin I (0.000-0.034) ng/mL Albumin (3.5-5.0) g/dL Urine Protein (Negative) Urine Glucose (UA) (Negative) Urine Blood (Negative) Diabetes panel 03/31/24 Range/Units 19:29 Sodium 130 L (137-145) mmol/L Potassium 3.9 (3.5-5.1) mmol/L Chloride 83 L (98-107) mmol/L Carbon Dioxide 36 H (22-30) mmol/L BUN 100 H (9-20) mg/dL Creatinine 2.31 H (0.66-1.25) mg/dL Glucose 356 H (74-99) mg/dL Calcium 8.8 (8.4-10.2) mg/dL AST 32 (17-59) U/L ALT 30 (4-49) U/L Alkaline Phosphatase 163 H (38-126) U/L Total Protein 6.3 (6.3-8.2) g/dL Albumin 3.3 L (3.5-5.0) g/dL Calcium panel 03/31/24 Range/Units 19:29 Calcium 8.8 (8.4-10.2) mg/dL Phosphorus 3.7 (2.5-4.5) mg/dL Albumin 3.3 L (3.5-5.0) g/dL Pituitary panel 03/31/24 Range/Units 19:29 Sodium 130 L (137-145) mmol/L Potassium 3.9 (3.5-5.1) mmol/L Chloride 83 L (98-107) mmol/L Carbon Dioxide 36 H (22-30) mmol/L BUN 100 H (9-20) mg/dL Creatinine 2.31 H (0.66-1.25) mg/dL Glucose 356 H (74-99) mg/dL Calcium 8.8 (8.4-10.2) mg/dL Adrenal panel 03/31/24 Range/Units 19:29 Sodium 130 L (137-145) mmol/L Potassium 3.9 (3.5-5.1) mmol/L Chloride 83 L (98-107) mmol/L Carbon Dioxide 36 H (22-30) mmol/L BUN 100 H (9-20) mg/dL Creatinine 2.31 H (0.66-1.25) mg/dL Glucose 356 H (74-99) mg/dL Calcium 8.8 (8.4-10.2) mg/dL Total Bilirubin 0.9 (0.2-1.3) mg/dL AST 32 (17-59) U/L ALT 30 (4-49) U/L Alkaline Phosphatase 163 H (38-126) U/L Total Protein 6.3 (6.3-8.2) g/dL Albumin 3.3 L (3.5-5.0) g/dL - Imaging CT scan - abdomen: report reviewed, image reviewed CT scan - pelvis: report reviewed, image reviewed Assessment and Plan Assessment: impression: Right groin cellulitis. Chronic renal insufficiency. Bilateral hydronephrosis with probable incomplete bladder emptying. We'll medical issues Recommendations: Obtain a postvoid residual. Most likely he will need a catheter. This will probably cause for the bilateral hydronephrosis. General surgical consultation for the groin cellulitis would be in order.
[2024-04-01] MEDS: amLODIPine 5 MG TAB PO SCH (08:25)
[2024-04-01] MEDS ORDERED: ACETAMINOPHEN TAB 325 MG TAB PO PRN (08:26)
[2024-04-01] MEDS: PANTOPRAZOLE 40 MG/10 ML VIAL IV SCH (08:26)
[2024-04-01] MEDS: ASPIRIN 81 MG PO SCH (08:26)
[2024-04-01] MEDS ORDERED: MAGNESIUM SULFATE-D5W PMX 1 GM in DEXTROSE/WATER 1 100ML.BAG IVPB SCH (08:30)
[2024-04-01] MEDS: MAGNESIUM SULFATE-D5W PMX 1 GM in DEXTROSE/WATER 1 100ML.BAG IVPB SCH (08:47)
[2024-04-01] MEDS: POTASSIUM CHLORIDE ER 20 MEQ TAB.ER PO STA (08:47)
[2024-04-01] MEDS: ISOSORBIDE MONONITRATE ER 60 MG TAB.ER.24H PO SCH (08:47)
[2024-04-01] MEDS: INSULIN ASPART (NovoLOG) 100 UNIT/ML VIAL SQ SCH (08:48)
[2024-04-01] MEDS ORDERED: TORSEMIDE 20 MG TAB PO SCH (09:00)
[2024-04-01] MEDS ORDERED: PANTOPRAZOLE 40 MG TABLET PO SCH (09:00)
[2024-04-01] MEDS: POTASSIUM CHLORIDE ER 20 MEQ TAB.ER PO ONE (10:12)
[2024-04-01] MEDS: VANCOMYCIN 1,500 MG in SODIUM CHLORIDE 0.9% 500 ML 500 ML IVPB ONE (12:35)
--- NOTE | 2024-04-01 12:59 | P.PN ---
Subjective Progress Note Date: 04/01/24 Is a 73-year-old male with a past medical history of hypertension, CKD stage III, diabetes mellitus who presents to the ED for right testicular and right groin pain that started 2 days ago and has been progressively getting worse. In the ED patient had a CT abdomen and pelvis that showed bilateral hydronephrosis and stranding within the right inguinal region and hematoma cannot be excluded and also right inguinal lymphadenopathy. Patient testicular ultrasound was negative. Patient does report that he has a difficult time with urination. Patient admitted to the medicine service. Patient was started on vancomycin for bilateral lower extremity cellulitis and also cellulitis in the right inguinal area. Patient seen this morning. He states that he had a positive exam this morning and is complaining of imbalance rectal pain. He is requesting for something stronger for his pain. Patient also states that he has a difficult time with urination. 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 Will give 6 g of magnesium sulfate Severe hypokalemia Will give 60 mill equivalents of oral potassium chloride Will repeat potassium at 3 PM Elevated troponin Likely due to renal failure Unlikely ACS as patient denies any chest pain CKD stage III Patient's creatinine is at baseline Mild hyponatremia Trend BMP Elevated D-dimer Suspect this is due to acute phase reactant Lower extremity venous Dopplers negative for DVT Patient was started on heparin drip in the ED which has now been discontinued Chronic conditions Hypertension, diabetes mellitus, CKD, congestive heart failure Resume home medications for blood pressure and cardiac meds Insulin sliding scale DVT prophylaxis: Will hold off on anticoagulation until hematoma ruled out Objective - Vital Signs Vital signs: Vital Signs Temp 98.6 F 04/01/24 00:00 Pulse 74 04/01/24 12:43 Resp 16 04/01/24 12:43 BP 110/74 04/01/24 12:43 Pulse Ox 96 04/01/24 12:43 FiO2 Intake & Output 03/31/24 04/01/24 04/01/24 18:59 06:59 18:59 Intake Total 40 Balance 40 Weight 90.718 kg 90.718 kg Intake: IV 40 Invasive Line 2 40 Other: # Voids 1 - Labs CBC & Chem 7: 04/01/24 06:34 04/01/24 06:34 Labs: Abnormal Lab Results - Last 24 Hours (Table) 03/31/24 03/31/24 03/31/24 Range/Units 19:29 19:29 19:29 WBC 16.5 H (3.8-10.6) k/uL Neutrophils # 15.2 H (1.3-7.7) k/uL Lymphocytes # 0.5 L (1.0-4.8) k/uL APTT (22.0-30.0) sec D-Dimer 3.82 H (<0.60) mg/L FEU Sodium 130 L (137-145) mmol/L Potassium (3.5-5.1) mmol/L Chloride 83 L (98-107) mmol/L Carbon Dioxide 36 H (22-30) mmol/L BUN 100 H (9-20) mg/dL Creatinine 2.31 H (0.66-1.25) mg/dL Glucose 356 H (74-99) mg/dL Plasma Lactic Acid Andrea (0.7-2.0) mmol/L Calcium (8.4-10.2) mg/dL Magnesium 1.1 L (1.6-2.3) mg/dL Alkaline Phosphatase 163 H (38-126) U/L Troponin I (0.000-0.034) ng/mL Total Protein (6.3-8.2) g/dL Albumin 3.3 L (3.5-5.0) g/dL Urine Protein (Negative) Urine Glucose (UA) (Negative) Urine Blood (Negative) 03/31/24 03/31/24 04/01/24 Range/Units 19:29 19:29 05:20 WBC (3.8-10.6) k/uL Neutrophils # (1.3-7.7) k/uL Lymphocytes # (1.0-4.8) k/uL APTT (22.0-30.0) sec D-Dimer (<0.60) mg/L FEU Sodium (137-145) mmol/L Potassium (3.5-5.1) mmol/L Chloride (98-107) mmol/L Carbon Dioxide (22-30) mmol/L BUN (9-20) mg/dL Creatinine (0.66-1.25) mg/dL Glucose (74-99) mg/dL Plasma Lactic Acid Andrea 4.1 H* (0.7-2.0) mmol/L Calcium (8.4-10.2) mg/dL Magnesium (1.6-2.3) mg/dL Alkaline Phosphatase (38-126) U/L Troponin I 0.175 H* (0.000-0.034) ng/mL Total Protein (6.3-8.2) g/dL Albumin (3.5-5.0) g/dL Urine Protein 1+ H (Negative) Urine Glucose (UA) 3+ H (Negative) Urine Blood Small H (Negative) 04/01/24 04/01/24 04/01/24 Range/Units 06:34 06:34 06:34 WBC 17.9 H (3.8-10.6) k/uL Neutrophils # 16.7 H (1.3-7.7) k/uL Lymphocytes # 0.5 L (1.0-4.8) k/uL APTT 33.4 H (22.0-30.0) sec D-Dimer (<0.60) mg/L FEU Sodium 132 L (137-145) mmol/L Potassium 2.7 L* (3.5-5.1) mmol/L Chloride 91 L (98-107) mmol/L Carbon Dioxide (22-30) mmol/L BUN 83 H (9-20) mg/dL Creatinine 1.90 H (0.66-1.25) mg/dL Glucose 291 H (74-99) mg/dL Plasma Lactic Acid Andrea (0.7-2.0) mmol/L Calcium 8.2 L (8.4-10.2) mg/dL Magnesium 1.1 L (1.6-2.3) mg/dL Alkaline Phosphatase 144 H (38-126) U/L Troponin I (0.000-0.034) ng/mL Total Protein 5.6 L (6.3-8.2) g/dL Albumin 2.9 L (3.5-5.0) g/dL Urine Protein (Negative) Urine Glucose (UA) (Negative) Urine Blood (Negative)
[2024-04-01] MEDS: IV FLUID CONTINUATION 300 ML IV ONE (14:03)
[2024-04-01] MEDS: IV FLUID CONTINUATION 350 ML IV ONE (14:04)
[2024-04-01 14:31] LABS: African American GFR (CKD) 41 (>60 ml/min/1.73 sqM); Anion Gap 6 mmol/L; Blood Urea Nitrogen 79 mg/dL (9-20); Calcium 8.2 mg/dL (8.4-10.2); Carbon Dioxide 29 mmol/L (22-30); Chloride 95 mmol/L (98-107); Glucose 163 mg/dL (74-99); Non-African American GFR(CKD) 36 (>60 ml/min/1.73 sqM); Potassium 3.6 mmol/L (3.5-5.1); Sodium 130 mmol/L (137-145)
[2024-04-01] MEDS: HEPARIN SODIUM,PORCINE 5,000 UNIT/ML 1 ML VIAL SQ ONE (14:41)
[2024-04-01] MEDS ORDERED: ETOMIDATE 2 MG/ML 10 ML VIAL ONE (14:54)
[2024-04-01] MEDS ORDERED: fentaNYL (PF) 50 MCG/ML 2 ML AMP ONE (14:54)
[2024-04-01] MEDS ORDERED: LIDOCAINE 1% INJ 10MG/ML (20 ML MDV) ONE (14:54)
[2024-04-01] MEDS ORDERED: SUCCINYLCHOLINE CHLORIDE 200 MG/10 ML VIAL IV ONE (14:54)
--- NOTE | 2024-04-01 14:55 | P.GSHP ---
History of Present Illness Is a 73-year-old male with a past medical history of hypertension, CKD stage III, diabetes mellitus who presents to the ED for right testicular and right groin pain that started 2 days ago and has been progressively getting worse. In the ED patient had a CT abdomen and pelvis that showed bilateral hydronephrosis and stranding within the right inguinal region and hematoma cannot be excluded and also right inguinal lymphadenopathy. Patient testicular ultrasound was negative. Patient does report that he has a difficult time with urination. Patient admitted to the medicine service. Patient was started on vancomycin for bilateral lower extremity cellulitis and also cellulitis in the right inguinal area. 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 Past Psychological History: No Psychological Hx Reported Additional Psychological History / Comment(s): Pt resides with his significant other. He is independent. Smoking Status: Former smoker Past Alcohol Use History: Rare Additional Past Alcohol Use History / Comment(s): Pt started smoking in 1959 and is over a ppd smoker. He has been cutting down. Past Drug Use History: Marijuana Additional Drug Use History / Comment(s): Pt states he smokes 5-6 marijuana joints per day. - Past Family History Father Family Medical History: Diabetes Mellitus, Myocardial Infarction ([place]) Additional Family Medical History / Comment(s): Had leg amputation Mother History Unknown: Yes Family Medical History: No Reported History Sister(s) Family Medical History: Diabetes Mellitus Additional Family Medical History / Comment(s): 1 sister had arm amputated due to diabetes Medications and Allergies Home Medications Medication Instructions Recorded Confirmed Type Atorvastatin [Lipitor] 40 mg PO HS #30 tab 08/17/20 04/01/24 Rx Isosorbide Mononitrate ER [Imdur] 60 mg PO DAILY #30 tab.er.24h 08/17/20 04/01/24 Rx Pantoprazole [Protonix] 40 mg PO DAILY 30 Days #30 tab 05/10/23 04/01/24 Rx Acetaminophen Tab [Tylenol] 650 mg PO Q8H PRN 11/17/23 04/01/24 History Magnesium Oxide [Mag-Ox] 400 mg PO DAILY 11/17/23 04/01/24 History Metoprolol Tartrate [Lopressor] 50 mg PO BID-W/MEALS 11/17/23 04/01/24 History Insulin NPH Hum/Reg Insulin Hm 10 unit SQ AC-SUPPER 12/17/23 04/01/24 History [humuLIN 70/30 Kwikpen] Insulin NPH Hum/Reg Insulin Hm 20 unit SQ AC-BRKFST 12/17/23 04/01/24 History [humuLIN 70/30 Kwikpen] Potassium Chloride ER [K-Dur 20] 40 meq PO DAILY #60 tab 12/20/23 04/01/24 Rx Torsemide [Demadex] 40 mg PO DAILY #90 tab 12/20/23 04/01/24 Rx predniSONE [Deltasone] 20 mg PO DAILY #30 tab 12/20/23 04/01/24 Rx amLODIPine [Norvasc] 5 mg PO DAILY 04/01/24 04/01/24 History metOLazone [Zaroxolyn] 5 mg PO Q48H 04/01/24 04/01/24 History mycophenolate mofetiL [Cellcept] 250 mg PO BID 04/01/24 04/01/24 History Allergies Allergy/AdvReac Type Severity Reaction Status Date / Time No Known Allergies Allergy Verified 04/01/24 09:29 Surgical - Exam Osteopathic Statement: *. No significant issues noted on an osteopathic structural exam other than those noted in the History and Physical/Consult. Vital Signs Temp Pulse Resp BP Pulse Ox 97.8 F 98 18 125/75 97 03/31/24 15:27 03/31/24 15:27 03/31/24 15:27 03/31/24 15:27 03/31/24 15:27 - General gen: nad cv: rrr pul: non labored breathing abd: soft, rotund, no guarding or rebound tenderness right groin red, swollen w/ obvious inflammation ext: b/l cellulitis Results - Labs 04/01/24 06:34 04/01/24 14:05 Abnormal Lab Results - Last 24 Hours (Table) 03/31/24 03/31/24 03/31/24 Range/Units 19:29 19:29 19:29 WBC 16.5 H (3.8-10.6) k/uL Neutrophils # 15.2 H (1.3-7.7) k/uL Lymphocytes # 0.5 L (1.0-4.8) k/uL APTT (22.0-30.0) sec D-Dimer 3.82 H (<0.60) mg/L FEU Sodium 130 L (137-145) mmol/L Potassium (3.5-5.1) mmol/L Chloride 83 L (98-107) mmol/L Carbon Dioxide 36 H (22-30) mmol/L BUN 100 H (9-20) mg/dL Creatinine 2.31 H (0.66-1.25) mg/dL Glucose 356 H (74-99) mg/dL Plasma Lactic Acid Andrea (0.7-2.0) mmol/L Calcium (8.4-10.2) mg/dL Magnesium 1.1 L (1.6-2.3) mg/dL Alkaline Phosphatase 163 H (38-126) U/L Troponin I (0.000-0.034) ng/mL Total Protein (6.3-8.2) g/dL Albumin 3.3 L (3.5-5.0) g/dL Urine Protein (Negative) Urine Glucose (UA) (Negative) Urine Blood (Negative) 03/31/24 03/31/24 04/01/24 Range/Units 19:29 19:29 05:20 WBC (3.8-10.6) k/uL Neutrophils # (1.3-7.7) k/uL Lymphocytes # (1.0-4.8) k/uL APTT (22.0-30.0) sec D-Dimer (<0.60) mg/L FEU Sodium (137-145) mmol/L Potassium (3.5-5.1) mmol/L Chloride (98-107) mmol/L Carbon Dioxide (22-30) mmol/L BUN (9-20) mg/dL Creatinine (0.66-1.25) mg/dL Glucose (74-99) mg/dL Plasma Lactic Acid Andrea 4.1 H* (0.7-2.0) mmol/L Calcium (8.4-10.2) mg/dL Magnesium (1.6-2.3) mg/dL Alkaline Phosphatase (38-126) U/L Troponin I 0.175 H* (0.000-0.034) ng/mL Total Protein (6.3-8.2) g/dL Albumin (3.5-5.0) g/dL Urine Protein 1+ H (Negative) Urine Glucose (UA) 3+ H (Negative) Urine Blood Small H (Negative) 04/01/24 04/01/24 04/01/24 Range/Units 06:34 06:34 06:34 WBC 17.9 H (3.8-10.6) k/uL Neutrophils # 16.7 H (1.3-7.7) k/uL Lymphocytes # 0.5 L (1.0-4.8) k/uL APTT 33.4 H (22.0-30.0) sec D-Dimer (<0.60) mg/L FEU Sodium 132 L (137-145) mmol/L Potassium 2.7 L* (3.5-5.1) mmol/L Chloride 91 L (98-107) mmol/L Carbon Dioxide (22-30) mmol/L BUN 83 H (9-20) mg/dL Creatinine 1.90 H (0.66-1.25) mg/dL Glucose 291 H (74-99) mg/dL Plasma Lactic Acid Andrea (0.7-2.0) mmol/L Calcium 8.2 L (8.4-10.2) mg/dL Magnesium 1.1 L (1.6-2.3) mg/dL Alkaline Phosphatase 144 H (38-126) U/L Troponin I (0.000-0.034) ng/mL Total Protein 5.6 L (6.3-8.2) g/dL Albumin 2.9 L (3.5-5.0) g/dL Urine Protein (Negative) Urine Glucose (UA) (Negative) Urine Blood (Negative) 04/01/24 Range/Units 14:05 WBC (3.8-10.6) k/uL Neutrophils # (1.3-7.7) k/uL Lymphocytes # (1.0-4.8) k/uL APTT (22.0-30.0) sec D-Dimer (<0.60) mg/L FEU Sodium 130 L (137-145) mmol/L Potassium (3.5-5.1) mmol/L Chloride 95 L (98-107) mmol/L Carbon Dioxide (22-30) mmol/L BUN 79 H (9-20) mg/dL Creatinine 1.82 H (0.66-1.25) mg/dL Glucose 163 H (74-99) mg/dL Plasma Lactic Acid Andrea (0.7-2.0) mmol/L Calcium 8.2 L (8.4-10.2) mg/dL Magnesium (1.6-2.3) mg/dL Alkaline Phosphatase (38-126) U/L Troponin I (0.000-0.034) ng/mL Total Protein (6.3-8.2) g/dL Albumin (3.5-5.0) g/dL Urine Protein (Negative) Urine Glucose (UA) (Negative) Urine Blood (Negative) Diabetes panel 03/31/24 04/01/24 04/01/24 Range/Units 19:29 06:34 14:05 Sodium 130 L 132 L 130 L (137-145) mmol/L Potassium 3.9 2.7 L* 3.6 (3.5-5.1) mmol/L Chloride 83 L 91 L 95 L (98-107) mmol/L Carbon Dioxide 36 H 28 29 (22-30) mmol/L BUN 100 H 83 H 79 H (9-20) mg/dL Creatinine 2.31 H 1.90 H 1.82 H (0.66-1.25) mg/dL Glucose 356 H 291 H 163 H (74-99) mg/dL Calcium 8.8 8.2 L 8.2 L (8.4-10.2) mg/dL AST 32 28 (17-59) U/L ALT 30 27 (4-49) U/L Alkaline Phosphatase 163 H 144 H (38-126) U/L Total Protein 6.3 5.6 L (6.3-8.2) g/dL Albumin 3.3 L 2.9 L (3.5-5.0) g/dL Calcium panel 03/31/24 04/01/24 04/01/24 Range/Units 19:29 06:34 14:05 Calcium 8.8 8.2 L 8.2 L (8.4-10.2) mg/dL Phosphorus 3.7 3.7 (2.5-4.5) mg/dL Albumin 3.3 L 2.9 L (3.5-5.0) g/dL Pituitary panel 03/31/24 04/01/24 04/01/24 Range/Units 19:29 06:34 14:05 Sodium 130 L 132 L 130 L (137-145) mmol/L Potassium 3.9 2.7 L* 3.6 (3.5-5.1) mmol/L Chloride 83 L 91 L 95 L (98-107) mmol/L Carbon Dioxide 36 H 28 29 (22-30) mmol/L BUN 100 H 83 H 79 H (9-20) mg/dL Creatinine 2.31 H 1.90 H 1.82 H (0.66-1.25) mg/dL Glucose 356 H 291 H 163 H (74-99) mg/dL Calcium 8.8 8.2 L 8.2 L (8.4-10.2) mg/dL Adrenal panel 03/31/24 04/01/24 04/01/24 Range/Units 19:29 06:34 14:05 Sodium 130 L 132 L 130 L (137-145) mmol/L Potassium 3.9 2.7 L* 3.6 (3.5-5.1) mmol/L Chloride 83 L 91 L 95 L (98-107) mmol/L Carbon Dioxide 36 H 28 29 (22-30) mmol/L BUN 100 H 83 H 79 H (9-20) mg/dL Creatinine 2.31 H 1.90 H 1.82 H (0.66-1.25) mg/dL Glucose 356 H 291 H 163 H (74-99) mg/dL Calcium 8.8 8.2 L 8.2 L (8.4-10.2) mg/dL Total Bilirubin 0.9 0.7 (0.2-1.3) mg/dL AST 32 28 (17-59) U/L ALT 30 27 (4-49) U/L Alkaline Phosphatase 163 H 144 H (38-126) U/L Total Protein 6.3 5.6 L (6.3-8.2) g/dL Albumin 3.3 L 2.9 L (3.5-5.0) g/dL Assessment and Plan Assessment: 73 yo male w/ right groin cellulitis -increased wbc -ctap demonstrates fat stranding in the right groin, high risk for developing nec fasc -take to OR emergently -iv abx -consult Dr. Loomis Time with Patient: Greater than 30
[2024-04-01] MEDS: MORPHINE SULFATE 2 MG/ML SYRINGE IVP PRN (18:39)
[2024-04-01] MEDS: SILVER NITRATE APPLICATOR 1 EACH STICK..EA. TOPICAL STA (19:47)
[2024-04-01] MEDS: ATORVASTATIN 40 MG TAB PO SCH (20:19)
--- NOTE | 2024-04-01 21:03 | P.OP ---
Date of Procedure: 04/01/24 Preoperative Diagnosis: right groin abscess Postoperative Diagnosis: right groin abscess Procedure(s) Performed: sharp incision and drainage of right groin abscess Anesthesia: local Surgeon: Lion Valerio Pathology: other (cultures) Condition: stable Disposition: floor Indications for Procedure: right groin abscess Operative Findings: right groin abscess Description of Procedure: Patient was brought to the operative suite where he was cleaned and draped in sterile fashion. A timeout was performed and everyone agreed with the information recited. Next an incision was made superomedial the right groin with the most fluctuance and about 50cc of purulent material was encountered and drained. A significant amount was sent for cultures. We then made another incision inferomedial the groin crease and encounter a smaller amount of purulent material. We dissected down to the fascia of the muscle. The is copiously irrigated both incisions measured 2 x 3 x 4cm. Electrocautery was used for hemostasis. Iodoform was gauze to used to pack both sites. The patient was covered and transported to pacu in stable condition.
--- NOTE | 2024-04-01 22:51 | P.CONS ---
History of Present Illness - Reason for Consult Consult date: 04/01/24 Cellulitis Requesting physician: Kolton Guillermo - Chief Complaint Right groin pain x few days - History of Present Illness Patient is a 73-year-old male with a past medical history significant for diabetes mellitus hypertension hyperlipidemia heart failure patient presenting to the hospital concerning for right groin pain along with the swelling in this patient symptom has been going on for about 2 days patient denies having any history of any trauma patient describing pain to the right ring to be mostly sharp throbbing almost 10 out of 10 in severity without any radiation with associated swelling redness and no drainage patient denies high- grade fever did have some chills on presentation to the hospital the patient was afebrile and no fever have been called subsequently patient was not tachycardic hypotensive mildly hypoxic: 2 L current oxygen patient did have a white count of 16.5, BUN and creatinine has been mildly elevated liver isms are normal patient did have a scrotal ultrasound presence of hydrocele did have a CT of abdominal pelvis stranding within the right inguinal region regional lymph nodes present diverticulosis without diverticulitis bilateral hydronephrosis and hydroureter patient started on vancomycin infectious disease was consulted for further management of labile therapy Review of Systems Positive point and negatives has been mentioned in the HPI, complete review of systems was performed and all other systems are negative Past Medical History Past Medical History: Heart Failure, Diabetes Mellitus, Hyperlipidemia, Hypertension, Renal Disease Additional Past Medical History / Comment(s): Cardiomyopathy, 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 Past Psychological History: No Psychological Hx Reported Additional Psychological History / Comment(s): Pt resides with his significant other. He is independent. Smoking Status: Former smoker Past Alcohol Use History: Rare Additional Past Alcohol Use History / Comment(s): Pt started smoking in 1959 and is over a ppd smoker. He has been cutting down. Past Drug Use History: Marijuana Additional Drug Use History / Comment(s): Pt states he smokes 5-6 marijuana joints per day. - Past Family History Father Family Medical History: Diabetes Mellitus, Myocardial Infarction ([place]) Additional Family Medical History / Comment(s): Had leg amputation Mother History Unknown: Yes Family Medical History: No Reported History Sister(s) Family Medical History: Diabetes Mellitus Additional Family Medical History / Comment(s): 1 sister had arm amputated due to diabetes Medications and Allergies Home Medications Medication Instructions Recorded Confirmed Type Atorvastatin [Lipitor] 40 mg PO HS #30 tab 08/17/20 04/01/24 Rx Isosorbide Mononitrate ER [Imdur] 60 mg PO DAILY #30 tab.er.24h 08/17/20 04/01/24 Rx Pantoprazole [Protonix] 40 mg PO DAILY 30 Days #30 tab 05/10/23 04/01/24 Rx Acetaminophen Tab [Tylenol] 650 mg PO Q8H PRN 11/17/23 04/01/24 History Magnesium Oxide [Mag-Ox] 400 mg PO DAILY 11/17/23 04/01/24 History Metoprolol Tartrate [Lopressor] 50 mg PO BID-W/MEALS 11/17/23 04/01/24 History Insulin NPH Hum/Reg Insulin Hm 10 unit SQ AC-SUPPER 12/17/23 04/01/24 History [humuLIN 70/30 Kwikpen] Insulin NPH Hum/Reg Insulin Hm 20 unit SQ AC-BRKFST 12/17/23 04/01/24 History [humuLIN 70/30 Kwikpen] Potassium Chloride ER [K-Dur 20] 40 meq PO DAILY #60 tab 12/20/23 04/01/24 Rx Torsemide [Demadex] 40 mg PO DAILY #90 tab 12/20/23 04/01/24 Rx predniSONE [Deltasone] 20 mg PO DAILY #30 tab 12/20/23 04/01/24 Rx amLODIPine [Norvasc] 5 mg PO DAILY 04/01/24 04/01/24 History metOLazone [Zaroxolyn] 5 mg PO Q48H 04/01/24 04/01/24 History mycophenolate mofetiL [Cellcept] 250 mg PO BID 04/01/24 04/01/24 History Allergies Allergy/AdvReac Type Severity Reaction Status Date / Time No Known Allergies Allergy Verified 04/01/24 09:29 Physical Exam Vitals: Vital Signs Temp Pulse Pulse Resp BP BP Pulse Ox 04/01/24 08:22 81 18 121/95 97 04/01/24 04:00 100 16 149/94 98 04/01/24 00:00 98.6 F 99 20 136/91 98 03/31/24 22:26 98.2 F 99 18 136/98 95 03/31/24 15:27 97.8 F 98 18 125/75 97 Intake and Output 03/31/24 04/01/24 04/01/24 22:59 06:59 14:59 Intake Total 20 20 Balance 20 20 Intake: IV 20 20 Invasive Line 2 20 20 Other: # Voids 1 Weight 90.718 kg 90.718 kg GENERAL DESCRIPTION: Elderly male lying in bed, no distress. No tachypnea or accessory muscle of respiration use. HEENT: Shows Pallor , no scleral icterus. Oral mucous membrane is dry. No pharyngeal erythema or thrush NECK: Trachea central, no thyromegaly. LUNGS: Unlabored breathing. Clear to auscultation anteriorly. No wheeze or crackle. HEART: S1, S2, regular rate and rhythm. No loud murmur ABDOMEN: Soft, no tenderness , guarding or rigidity, no organomegaly EXTREMITIES: Lower extremity did have minimal swelling redness over the swelling and tenderness to the right groin area no drainage SKIN: No rash, no masses palpable. NEUROLOGICAL: The patient is awake, alert, oriented x3, mood and affect normal. Results CBC & Chem 7: 04/01/24 06:34 04/01/24 14:05 Labs: Abnormal Lab Results - Last 24 Hours (Table) 03/31/24 03/31/24 03/31/24 Range/Units 19:29 19:29 19:29 WBC 16.5 H (3.8-10.6) k/uL Neutrophils # 15.2 H (1.3-7.7) k/uL Lymphocytes # 0.5 L (1.0-4.8) k/uL APTT (22.0-30.0) sec D-Dimer 3.82 H (<0.60) mg/L FEU Sodium 130 L (137-145) mmol/L Potassium (3.5-5.1) mmol/L Chloride 83 L (98-107) mmol/L Carbon Dioxide 36 H (22-30) mmol/L BUN 100 H (9-20) mg/dL Creatinine 2.31 H (0.66-1.25) mg/dL Glucose 356 H (74-99) mg/dL Plasma Lactic Acid Andrea (0.7-2.0) mmol/L Calcium (8.4-10.2) mg/dL Magnesium 1.1 L (1.6-2.3) mg/dL Alkaline Phosphatase 163 H (38-126) U/L Troponin I (0.000-0.034) ng/mL Total Protein (6.3-8.2) g/dL Albumin 3.3 L (3.5-5.0) g/dL Urine Protein (Negative) Urine Glucose (UA) (Negative) Urine Blood (Negative) 03/31/24 03/31/24 04/01/24 Range/Units 19:29 19:29 05:20 WBC (3.8-10.6) k/uL Neutrophils # (1.3-7.7) k/uL Lymphocytes # (1.0-4.8) k/uL APTT (22.0-30.0) sec D-Dimer (<0.60) mg/L FEU Sodium (137-145) mmol/L Potassium (3.5-5.1) mmol/L Chloride (98-107) mmol/L Carbon Dioxide (22-30) mmol/L BUN (9-20) mg/dL Creatinine (0.66-1.25) mg/dL Glucose (74-99) mg/dL Plasma Lactic Acid Andrea 4.1 H* (0.7-2.0) mmol/L Calcium (8.4-10.2) mg/dL Magnesium (1.6-2.3) mg/dL Alkaline Phosphatase (38-126) U/L Troponin I 0.175 H* (0.000-0.034) ng/mL Total Protein (6.3-8.2) g/dL Albumin (3.5-5.0) g/dL Urine Protein 1+ H (Negative) Urine Glucose (UA) 3+ H (Negative) Urine Blood Small H (Negative) 04/01/24 04/01/24 04/01/24 Range/Units 06:34 06:34 06:34 WBC 17.9 H (3.8-10.6) k/uL Neutrophils # 16.7 H (1.3-7.7) k/uL Lymphocytes # 0.5 L (1.0-4.8) k/uL APTT 33.4 H (22.0-30.0) sec D-Dimer (<0.60) mg/L FEU Sodium 132 L (137-145) mmol/L Potassium 2.7 L* (3.5-5.1) mmol/L Chloride 91 L (98-107) mmol/L Carbon Dioxide (22-30) mmol/L BUN 83 H (9-20) mg/dL Creatinine 1.90 H (0.66-1.25) mg/dL Glucose 291 H (74-99) mg/dL Plasma Lactic Acid Andrea (0.7-2.0) mmol/L Calcium 8.2 L (8.4-10.2) mg/dL Magnesium 1.1 L (1.6-2.3) mg/dL Alkaline Phosphatase 144 H (38-126) U/L Troponin I (0.000-0.034) ng/mL Total Protein 5.6 L (6.3-8.2) g/dL Albumin 2.9 L (3.5-5.0) g/dL Urine Protein (Negative) Urine Glucose (UA) (Negative) Urine Blood (Negative) Assessment and Plan (1) Abscess of right groin Current Visit: Yes Status: Acute Code(s): L02.214 - CUTANEOUS ABSCESS OF GROIN SNOMED Code(s): 73077792 Plan: 1patient is in the hospital with the pain to the right groin area in this patient who did have evidence of induration swelling redness concerning for the right groin abscess plus minus mild cellulitis to the lower extremity and likely from gram-positive skin rl. 2await surgical evaluation for possible drainage of the abscess and deep culture. 3patient did have renal insufficiency and high risk of nephrotoxicity 4vancomycin pharmacy to dose target trough of 15 while watching kidney function and Vanco trough closely We will follow on clinical condition and cultures to further adjust medication if needed Thank you for this consultation we will follow the patient along with you Dictation was produced using [employer] software. please excuse any grammatical, word or spelling errors. Time with Patient: Greater than 30
[2024-04-02 08:02] LABS: Basophils # (A) 0.1 k/uL (0-0.2); Basophils % (A) 0 %; Eosinophils # (A) 0.1 k/uL (0-0.7); Eosinophils % (A) 1 %; HCT 37.9 % (39.0-53.0); HGB 12.8 gm/dL (13.0-17.5); Lymphocytes # (A) 0.7 k/uL (1.0-4.8); Lymphocytes % (A) 5 %; MCH 29.2 pg (25.0-35.0); MCHC 33.8 g/dL (31.0-37.0); MCV 86.5 fL (80.0-100.0); Mean Platelet Volume 9.2; Monocytes # (A) 0.5 k/uL (0-1.0); Monocytes % (A) 3 %; Neutrophils # (A) 13.4 k/uL (1.3-7.7); Neutrophils % (A) 90 %; Platelet Count 228 k/uL (150-450); RBC 4.38 m/uL (4.30-5.90); RDW 14.2 % (11.5-15.5); WBC 14.9 k/uL (3.8-10.6)
[2024-04-02 08:41] LABS: African American GFR (CKD) 46 (>60 ml/min/1.73 sqM); Anion Gap 9 mmol/L; Blood Urea Nitrogen 64 mg/dL (9-20); Calcium 8.1 mg/dL (8.4-10.2); Carbon Dioxide 28 mmol/L (22-30); Chloride 94 mmol/L (98-107); Glucose 99 mg/dL (74-99); Magnesium 1.9 mg/dL (1.6-2.3); Non-African American GFR(CKD) 40 (>60 ml/min/1.73 sqM); Potassium 3.1 mmol/L (3.5-5.1); Sodium 131 mmol/L (137-145)
[2024-04-02] MEDS: TAMSULOSIN 0.4 MG CAP.ER.24H PO SCH (09:11)
[2024-04-02] MEDS: POTASSIUM CHLORIDE ER 20 MEQ TAB.ER PO STA (10:21)
[2024-04-02] MEDS: VANCOMYCIN 1,500 MG in SODIUM CHLORIDE 0.9% 500 ML 500 ML IVPB SCH (12:51)
--- NOTE | 2024-04-02 12:54 | P.PN ---
Subjective Progress Note Date: 04/02/24 Is a 73-year-old male with a past medical history of hypertension, CKD stage III, diabetes mellitus who presents to the ED for right testicular and right groin pain that started 2 days ago and has been progressively getting worse. In the ED patient had a CT abdomen and pelvis that showed bilateral hydronephrosis and stranding within the right inguinal region and hematoma cannot be excluded and also right inguinal lymphadenopathy. Patient testicular ultrasound was negative. Patient does report that he has a difficult time with urination. Patient admitted to the medicine service. Patient was started on vancomycin for bilateral lower extremity cellulitis and also cellulitis in the right inguinal area. Patient seen this morning. He states that he had a positive exam this morning and is complaining of imbalance rectal pain. He is requesting for something stronger for his pain. Patient also states that he has a difficult time with urination. 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 Creatinine this morning 1.67 which is stable Infectious disease on board General Surgery performed I&D. I reviewed the op note that shows that purulent fluid was drained Follow-up on cultures from I&D WBC this morning is 14.9 which is improving Continue gentle fluids for now at 75 cc an hour IV morphine 2 g as needed every 4 hours. Patient has not required any morphine in the past 24 hours Bilateral hydronephrosis Patient had postvoid residual done that was greater than 500 Straight catheterization was done with 450 cc output Will insert Cadena catheter patient retaining again Urology on board Hypomagnesemia Monitor magnesium Severe hypokalemia Potassium this morning is 3.1 so we will give 40 mill equivalents of potassium chloride Elevated troponin Likely due to renal failure Unlikely ACS as patient denies any chest pain CKD stage III Patient's creatinine is at baseline Mild hyponatremia Trend BMP Elevated D-dimer Suspect this is due to acute phase reactant Lower extremity venous Dopplers negative for DVT Patient was started on heparin drip in the ED which has now been discontinued Chronic conditions Hypertension, diabetes mellitus, CKD, congestive heart failure Resume home medications for blood pressure and cardiac meds Insulin sliding scale DVT prophylaxis: Will start the patient on subcu insulin 5000 units every 12 hours Objective - Vital Signs Vital signs: Vital Signs Temp 97.9 F 04/02/24 12:00 Pulse 75 04/02/24 12:00 Resp 18 04/02/24 12:00 BP 115/79 04/02/24 12:00 Pulse Ox 97 04/02/24 12:00 FiO2 Intake & Output 04/01/24 04/02/24 04/02/24 18:59 06:59 18:59 Intake Total 450 40 540 Output Total 5 450 110 Balance 445 -410 430 Weight 95.5 kg Intake: IV 450 40 Invasive Line 2 40 Oral 540 Output: Urine 450 110 Straight 450 Estimated Blood Loss 5 - Labs CBC & Chem 7: 04/02/24 06:53 04/02/24 06:53 Labs: Abnormal Lab Results - Last 24 Hours (Table) 04/01/24 04/02/24 04/02/24 Range/Units 14:05 06:53 06:53 WBC 14.9 H (3.8-10.6) k/uL Hgb 12.8 L (13.0-17.5) gm/dL Hct 37.9 L (39.0-53.0) % Neutrophils # 13.4 H (1.3-7.7) k/uL Lymphocytes # 0.7 L (1.0-4.8) k/uL Sodium 130 L (137-145) mmol/L Potassium (3.5-5.1) mmol/L Chloride 95 L (98-107) mmol/L BUN 79 H (9-20) mg/dL Creatinine 1.82 H (0.66-1.25) mg/dL Glucose 163 H (74-99) mg/dL Hemoglobin A1c 10.5 H (<=6.0) % Calcium 8.2 L (8.4-10.2) mg/dL 04/02/24 Range/Units 06:53 WBC (3.8-10.6) k/uL Hgb (13.0-17.5) gm/dL Hct (39.0-53.0) % Neutrophils # (1.3-7.7) k/uL Lymphocytes # (1.0-4.8) k/uL Sodium 131 L (137-145) mmol/L Potassium 3.1 L (3.5-5.1) mmol/L Chloride 94 L (98-107) mmol/L BUN 64 H (9-20) mg/dL Creatinine 1.67 H (0.66-1.25) mg/dL Glucose (74-99) mg/dL Hemoglobin A1c (<=6.0) % Calcium 8.1 L (8.4-10.2) mg/dL Microbiology - Last 24 Hours (Table) 03/31/24 19:29 Blood Culture - Preliminary Blood
--- NOTE | 2024-04-02 13:19 | P.PN ---
Subjective Progress Note Date: 04/02/24 Principal diagnosis: Reason for follow-up is right groin abscess Patient is a 73-year-old male with a past medical history significant for diabetes mellitus hypertension hyperlipidemia heart failure patient presenting to the hospital concerning for right groin pain along with the swelling patient has been diagnosed with right groin abscess status post surgical drainage. On today's evaluation that is 04/02/2024, Patient is afebrile patient is currently on room air and denies having any shortness of breath, the patient denies any chest pain or cough, the patient denies any nausea vomiting did not have any abdominal pain and no diarrhea patient pain to the right groin has decreased in intensity. Patient white count is 14.9 creatinine is 1.67 cultures are pending Objective - Vital Signs Vital signs: Vital Signs Temp 97.9 F 04/02/24 12:00 Pulse 75 04/02/24 12:00 Resp 18 04/02/24 12:00 BP 115/79 04/02/24 12:00 Pulse Ox 97 04/02/24 12:00 FiO2 Intake & Output 04/01/24 04/02/24 04/02/24 18:59 06:59 18:59 Intake Total 450 40 540 Output Total 5 450 110 Balance 445 -410 430 Weight 95.5 kg Intake: IV 450 40 Invasive Line 2 40 Oral 540 Output: Urine 450 110 Straight 450 Estimated Blood Loss 5 - Exam GENERAL DESCRIPTION: An elderly male lying in bed in no distress RESPIRATORY SYSTEM: Unlabored breathing , decreased breath sounds at bases HEART: S1 S2 regular rate and rhythm , ABDOMEN: Soft , no tenderness EXTREMITIES: No edema feet - Labs CBC & Chem 7: 04/02/24 06:53 04/02/24 06:53 Labs: Abnormal Lab Results - Last 24 Hours (Table) 04/01/24 04/02/24 04/02/24 Range/Units 14:05 06:53 06:53 WBC 14.9 H (3.8-10.6) k/uL Hgb 12.8 L (13.0-17.5) gm/dL Hct 37.9 L (39.0-53.0) % Neutrophils # 13.4 H (1.3-7.7) k/uL Lymphocytes # 0.7 L (1.0-4.8) k/uL Sodium 130 L (137-145) mmol/L Potassium (3.5-5.1) mmol/L Chloride 95 L (98-107) mmol/L BUN 79 H (9-20) mg/dL Creatinine 1.82 H (0.66-1.25) mg/dL Glucose 163 H (74-99) mg/dL Hemoglobin A1c 10.5 H (<=6.0) % Calcium 8.2 L (8.4-10.2) mg/dL 04/02/24 Range/Units 06:53 WBC (3.8-10.6) k/uL Hgb (13.0-17.5) gm/dL Hct (39.0-53.0) % Neutrophils # (1.3-7.7) k/uL Lymphocytes # (1.0-4.8) k/uL Sodium 131 L (137-145) mmol/L Potassium 3.1 L (3.5-5.1) mmol/L Chloride 94 L (98-107) mmol/L BUN 64 H (9-20) mg/dL Creatinine 1.67 H (0.66-1.25) mg/dL Glucose (74-99) mg/dL Hemoglobin A1c (<=6.0) % Calcium 8.1 L (8.4-10.2) mg/dL Microbiology - Last 24 Hours (Table) 03/31/24 19:29 Blood Culture - Preliminary Blood Assessment and Plan (1) Abscess of right groin Current Visit: Yes Status: Acute Code(s): L02.214 - CUTANEOUS ABSCESS OF GROIN SNOMED Code(s): 32016704 Plan: 1patient is in the hospital with the pain to the right groin area in this patient who did have evidence of induration swelling redness concerning for the right groin abscess plus minus mild cellulitis to the lower extremity and likely from gram-positive skin rl. 2patient is status post drainage of the abscess and deep culture which are currently pending. 3we will continue with the vancomycin watching his kidney function closely pending culture finalization Dictation was produced using [employer] software. please excuse any grammatical, word or spelling errors. Time with Patient: Less than 30
--- NOTE | 2024-04-02 13:32 | US ---
EXAMINATION TYPE: US arterial LE multi level DATE OF EXAM: 04/02/2024 1:19 PM CLINICAL INDICATION: Male, 73 years old with history of right leg cooler than the left; right leg cook helper ler than left unable to obtain doppler in rt groin due to pain. History of: Smoker: Yes Hypertension: Yes Diabetic: Yes Hyperlipidemia: Yes TIA/CVA: No Previous Vascular Surgery: No CAD: No MN: Yes Vascular Ulcers: Yes Claudication: No Gangrene: No Doppler Waveforms: Right: Multiphasic Left: Multiphasic Ankle-Brachial Indices: Right: 1.04 Left: 1.01 (Vessel hardening > 1.4; Normal 0.9 - 1.4, Moderate 0.7 - 0.9, Severe 0.5-0.7) Toe Brachial Indices: Right: 0.44 Left: 0.54 IMPRESSION: Ankle brachial indices within normal limits. [facility], , 04/02/2024 1:30 PM
--- NOTE | 2024-04-02 14:14 | P.PN ---
Subjective Progress Note Date: 04/02/24 CHIEF COMPLAINT: Right groin abscess HISTORY OF PRESENT ILLNESS: Patient postop day #1 status post sharp incision and drainage of right groin abscess. Patient reports the pain in the groin is less. The redness and swelling is also decreased. Nursing staff notified us that they were concerned that there was a coolness noted more in the right leg than the left. Arterial ultrasound was ordered which had reported normal ankle- brachial indices. Patient has had no increase in pain. Denies any sensation loss. Patient had good pulses by Doppler. Afebrile. WBC is down from 17.2- 14.9 Hgb 12.8 sodium 131 potassium 3.1 creatinine 1.62 PHYSICAL EXAM: VITAL SIGNS: Reviewed. GENERAL: no acute distress. ABDOMEN: Soft. Nondistended. Nontender. NEUROLOGIC: Alert and oriented. Cranial nerves II through XII grossly intact. Extremities: Right groin erythema and induration has decreased. Packing is intact. No signs of bleeding. serosanguineous drainage noted on packing. Patient's legs are swollen. Pulses by Doppler intact bilaterally. There is a slight coolness noted in the right upper calf on the right leg. No sensation loss noted ASSESSMENT: 1. Right groin abscess status post incision and drainage PLAN: -Follow-up on culture results -Continue antibiotics per ID service -Packing from groin was removed -Arterial ultrasound notes noted -Continue supportive care -Fillmore added for pain management Physician Processing Mgr note has been reviewed by physician. Signing provider agrees with the documented findings, assessment, and plan of care. Objective - Vital Signs Vital signs: Vital Signs Temp 97.9 F 04/02/24 12:00 Pulse 75 04/02/24 12:00 Resp 18 04/02/24 12:00 BP 115/79 04/02/24 12:00 Pulse Ox 97 04/02/24 12:00 FiO2 Intake & Output 04/01/24 04/02/24 04/02/24 18:59 06:59 18:59 Intake Total 450 40 540 Output Total 5 450 110 Balance 445 -410 430 Weight 95.5 kg Intake: IV 450 40 Invasive Line 2 40 Oral 540 Output: Urine 450 110 Straight 450 Estimated Blood Loss 5 - Labs CBC & Chem 7: 04/02/24 06:53 04/02/24 06:53 Labs: Abnormal Lab Results - Last 24 Hours (Table) 04/01/24 04/02/24 04/02/24 Range/Units 14:05 06:53 06:53 WBC 14.9 H (3.8-10.6) k/uL Hgb 12.8 L (13.0-17.5) gm/dL Hct 37.9 L (39.0-53.0) % Neutrophils # 13.4 H (1.3-7.7) k/uL Lymphocytes # 0.7 L (1.0-4.8) k/uL Sodium 130 L (137-145) mmol/L Potassium (3.5-5.1) mmol/L Chloride 95 L (98-107) mmol/L BUN 79 H (9-20) mg/dL Creatinine 1.82 H (0.66-1.25) mg/dL Glucose 163 H (74-99) mg/dL Hemoglobin A1c 10.5 H (<=6.0) % Calcium 8.2 L (8.4-10.2) mg/dL 04/02/24 Range/Units 06:53 WBC (3.8-10.6) k/uL Hgb (13.0-17.5) gm/dL Hct (39.0-53.0) % Neutrophils # (1.3-7.7) k/uL Lymphocytes # (1.0-4.8) k/uL Sodium 131 L (137-145) mmol/L Potassium 3.1 L (3.5-5.1) mmol/L Chloride 94 L (98-107) mmol/L BUN 64 H (9-20) mg/dL Creatinine 1.67 H (0.66-1.25) mg/dL Glucose (74-99) mg/dL Hemoglobin A1c (<=6.0) % Calcium 8.1 L (8.4-10.2) mg/dL Microbiology - Last 24 Hours (Table) 03/31/24 19:29 Blood Culture - Preliminary Blood
[2024-04-02] MEDS: MORPHINE SULFATE 2 MG/ML SYRINGE IVP PRN (16:17)
[2024-04-02 16:39] LABS: Glucose,Whole Blood 252 mg/dL (70-110)
[2024-04-02] MEDS: HYDROcodone/APAP 5-325MG 1 EACH TAB PO PRN (17:31)
[2024-04-02 20:04] LABS: Glucose,Whole Blood 152 mg/dL (70-110)
[2024-04-02] MEDS: HEPARIN SODIUM,PORCINE 5,000 UNIT/ML 1 ML VIAL SQ SCH (20:20)
[2024-04-03 06:10] LABS: Glucose,Whole Blood 128 mg/dL (70-110)
[2024-04-03 06:46] LABS: Basophils % (A) 0 %; Eosinophils # (A) 0.1 k/uL (0-0.7); Eosinophils % (A) 1 %; HCT 35.4 % (39.0-53.0); HGB 11.6 gm/dL (13.0-17.5); Lymphocytes # (A) 0.8 k/uL (1.0-4.8); Lymphocytes % (A) 6 %; MCHC 32.9 g/dL (31.0-37.0); MCV 88.1 fL (80.0-100.0); Mean Platelet Volume 8.3; Monocytes # (A) 0.4 k/uL (0-1.0); Monocytes % (A) 4 %; Neutrophils # (A) 10.3 k/uL (1.3-7.7); Neutrophils % (A) 88 %; Platelet Count 226 k/uL (150-450); RBC 4.01 m/uL (4.30-5.90); RDW 14.1 % (11.5-15.5); WBC 11.7 k/uL (3.8-10.6)
[2024-04-03 06:57] LABS: African American GFR (CKD) 50 (>60 ml/min/1.73 sqM); Anion Gap 4 mmol/L; Blood Urea Nitrogen 53 mg/dL (9-20); Carbon Dioxide 25 mmol/L (22-30); Chloride 100 mmol/L (98-107); Glucose 116 mg/dL (74-99); Magnesium 1.7 mg/dL (1.6-2.3); Non-African American GFR(CKD) 43 (>60 ml/min/1.73 sqM); Potassium 3.6 mmol/L (3.5-5.1); Sodium 129 mmol/L (137-145)
[2024-04-03 06:59] LABS: Glucose,Whole Blood 221 mg/dL (70-110)
[2024-04-03 06:59] LABS: Glucose,Whole Blood 121 mg/dL (70-110)
[2024-04-03 07:01] LABS: Glucose,Whole Blood 201 mg/dL (70-110)
[2024-04-03 07:01] LABS: Glucose,Whole Blood 165 mg/dL (70-110)
[2024-04-03 07:02] LABS: Glucose,Whole Blood 179 mg/dL (70-110)
[2024-04-03 07:02] LABS: Glucose,Whole Blood 157 mg/dL (70-110)
[2024-04-03 07:03] LABS: Glucose,Whole Blood 216 mg/dL (70-110)
[2024-04-03 07:17] LABS: Glucose,Whole Blood 325 mg/dL (70-110)
[2024-04-03 07:52] VITALS: RESP 16
[2024-04-03 11:07] VITALS: TEMP 98.6
[2024-04-03 11:17] LABS: Glucose,Whole Blood 348 mg/dL (70-110)
--- NOTE | 2024-04-03 12:28 | P.PN ---
Subjective Progress Note Date: 04/03/24 CHIEF COMPLAINT: Right groin abscess HISTORY OF PRESENT ILLNESS: Patient postop day #2 status post sharp incision and drainage of right groin abscess. Patient reports pain in the right groin is improving. Packing was removed yesterday. He continues to have drainage. Afebrile. WBC is down from 14.9-11.7 culture result growing presumptive MRSA PHYSICAL EXAM: VITAL SIGNS: Reviewed. GENERAL: no acute distress. ABDOMEN: Soft. Nondistended. Nontender. NEUROLOGIC: Alert and oriented. Cranial nerves II through XII grossly intact. Extremities: Right groin erythema and induration has decreased. There is some firmness in the area with palpation. Packing is currently out. Purulent drainage noted from proximal incision. ASSESSMENT: 1. Right groin abscess status post incision and drainage PLAN: -Patient can be discharged from surgical standpoint -Discharge antibiotics per infectious disease Physician Electric Motor Assembler And Tester note has been reviewed by physician. Signing provider agrees with the documented findings, assessment, and plan of care. Objective - Vital Signs Vital signs: Vital Signs Temp 98.6 F 04/03/24 11:06 Pulse 58 L 04/03/24 11:06 Resp 16 04/03/24 11:06 BP 92/59 04/03/24 11:06 Pulse Ox 95 04/03/24 11:06 FiO2 Intake & Output 04/02/24 04/03/24 04/03/24 18:59 06:59 18:59 Intake Total 776 236 Output Total 160 450 Balance 616 -450 236 Weight 91.5 kg Intake: Oral 776 236 Output: Urine 160 450 Other: # Voids 1 - Labs CBC & Chem 7: 04/03/24 06:31 04/03/24 06:31 Labs: Abnormal Lab Results - Last 24 Hours (Table) 04/01/24 04/01/24 04/01/24 Range/Units 08:40 12:29 14:19 WBC (3.8-10.6) k/uL RBC (4.30-5.90) m/uL Hgb (13.0-17.5) gm/dL Hct (39.0-53.0) % Neutrophils # (1.3-7.7) k/uL Lymphocytes # (1.0-4.8) k/uL Sodium (137-145) mmol/L BUN (9-20) mg/dL Creatinine (0.66-1.25) mg/dL Glucose (74-99) mg/dL POC Glucose (mg/dL) 325 H 216 H 179 H (70-110) mg/dL Calcium (8.4-10.2) mg/dL 04/01/24 04/01/24 04/01/24 Range/Units 15:56 17:51 20:09 WBC (3.8-10.6) k/uL RBC (4.30-5.90) m/uL Hgb (13.0-17.5) gm/dL Hct (39.0-53.0) % Neutrophils # (1.3-7.7) k/uL Lymphocytes # (1.0-4.8) k/uL Sodium (137-145) mmol/L BUN (9-20) mg/dL Creatinine (0.66-1.25) mg/dL Glucose (74-99) mg/dL POC Glucose (mg/dL) 157 H 165 H 201 H (70-110) mg/dL Calcium (8.4-10.2) mg/dL 04/02/24 04/02/24 04/02/24 Range/Units 06:26 11:08 16:38 WBC (3.8-10.6) k/uL RBC (4.30-5.90) m/uL Hgb (13.0-17.5) gm/dL Hct (39.0-53.0) % Neutrophils # (1.3-7.7) k/uL Lymphocytes # (1.0-4.8) k/uL Sodium (137-145) mmol/L BUN (9-20) mg/dL Creatinine (0.66-1.25) mg/dL Glucose (74-99) mg/dL POC Glucose (mg/dL) 121 H 221 H 252 H (70-110) mg/dL Calcium (8.4-10.2) mg/dL 04/02/24 04/03/24 04/03/24 Range/Units 20:03 06:09 06:31 WBC 11.7 H (3.8-10.6) k/uL RBC 4.01 L (4.30-5.90) m/uL Hgb 11.6 L (13.0-17.5) gm/dL Hct 35.4 L (39.0-53.0) % Neutrophils # 10.3 H (1.3-7.7) k/uL Lymphocytes # 0.8 L (1.0-4.8) k/uL Sodium (137-145) mmol/L BUN (9-20) mg/dL Creatinine (0.66-1.25) mg/dL Glucose (74-99) mg/dL POC Glucose (mg/dL) 152 H 128 H (70-110) mg/dL Calcium (8.4-10.2) mg/dL 04/03/24 04/03/24 Range/Units 06:31 11:14 WBC (3.8-10.6) k/uL RBC (4.30-5.90) m/uL Hgb (13.0-17.5) gm/dL Hct (39.0-53.0) % Neutrophils # (1.3-7.7) k/uL Lymphocytes # (1.0-4.8) k/uL Sodium 129 L (137-145) mmol/L BUN 53 H (9-20) mg/dL Creatinine 1.56 H (0.66-1.25) mg/dL Glucose 116 H (74-99) mg/dL POC Glucose (mg/dL) 348 H (70-110) mg/dL Calcium 8.0 L (8.4-10.2) mg/dL Microbiology - Last 24 Hours (Table) 03/31/24 19:29 Blood Culture - Preliminary Blood 04/01/24 15:30 Gram Stain - Preliminary Groin Wound Culture - Preliminary Presumptive MRSA
--- NOTE | 2024-04-03 13:05 | P.PN ---
Subjective Progress Note Date: 04/03/24 Principal diagnosis: Reason for follow-up is right groin abscess Patient is a 73-year-old male with a past medical history significant for diabetes mellitus hypertension hyperlipidemia heart failure patient presenting to the hospital concerning for right groin pain along with the swelling patient has been diagnosed with right groin abscess status post surgical drainage. On today's evaluation that is 04/03/2024, patient has been afebrile, patient is breathing comfortably and is currently on room air, patient denies having any significant cough no chest pain, patient denies nausea vomiting or diarrhea and no abdominal pain, the patient pain to the right groin has decreased intensity. Patient white count is 11.7, creatinine is 1.56 Objective - Vital Signs Vital signs: Vital Signs Temp 98.6 F 04/03/24 11:06 Pulse 58 L 04/03/24 11:06 Resp 16 04/03/24 11:06 BP 92/59 04/03/24 11:06 Pulse Ox 95 04/03/24 11:06 FiO2 Intake & Output 04/02/24 04/03/24 04/03/24 18:59 06:59 18:59 Intake Total 776 236 Output Total 160 450 Balance 616 -450 236 Weight 91.5 kg Intake: Oral 776 236 Output: Urine 160 450 Other: # Voids 1 - Exam GENERAL DESCRIPTION: An elderly male lying in bed in no distress RESPIRATORY SYSTEM: Unlabored breathing , decreased breath sounds at bases HEART: S1 S2 regular rate and rhythm , ABDOMEN: Soft , no tenderness EXTREMITIES: No edema feet - Labs CBC & Chem 7: 04/03/24 06:31 04/03/24 06:31 Labs: Abnormal Lab Results - Last 24 Hours (Table) 04/01/24 04/01/24 04/01/24 Range/Units 08:40 12:29 14:19 WBC (3.8-10.6) k/uL RBC (4.30-5.90) m/uL Hgb (13.0-17.5) gm/dL Hct (39.0-53.0) % Neutrophils # (1.3-7.7) k/uL Lymphocytes # (1.0-4.8) k/uL Sodium (137-145) mmol/L BUN (9-20) mg/dL Creatinine (0.66-1.25) mg/dL Glucose (74-99) mg/dL POC Glucose (mg/dL) 325 H 216 H 179 H (70-110) mg/dL Calcium (8.4-10.2) mg/dL 04/01/24 04/01/24 04/01/24 Range/Units 15:56 17:51 20:09 WBC (3.8-10.6) k/uL RBC (4.30-5.90) m/uL Hgb (13.0-17.5) gm/dL Hct (39.0-53.0) % Neutrophils # (1.3-7.7) k/uL Lymphocytes # (1.0-4.8) k/uL Sodium (137-145) mmol/L BUN (9-20) mg/dL Creatinine (0.66-1.25) mg/dL Glucose (74-99) mg/dL POC Glucose (mg/dL) 157 H 165 H 201 H (70-110) mg/dL Calcium (8.4-10.2) mg/dL 04/02/24 04/02/24 04/02/24 Range/Units 06:26 11:08 16:38 WBC (3.8-10.6) k/uL RBC (4.30-5.90) m/uL Hgb (13.0-17.5) gm/dL Hct (39.0-53.0) % Neutrophils # (1.3-7.7) k/uL Lymphocytes # (1.0-4.8) k/uL Sodium (137-145) mmol/L BUN (9-20) mg/dL Creatinine (0.66-1.25) mg/dL Glucose (74-99) mg/dL POC Glucose (mg/dL) 121 H 221 H 252 H (70-110) mg/dL Calcium (8.4-10.2) mg/dL 04/02/24 04/03/24 04/03/24 Range/Units 20:03 06:09 06:31 WBC 11.7 H (3.8-10.6) k/uL RBC 4.01 L (4.30-5.90) m/uL Hgb 11.6 L (13.0-17.5) gm/dL Hct 35.4 L (39.0-53.0) % Neutrophils # 10.3 H (1.3-7.7) k/uL Lymphocytes # 0.8 L (1.0-4.8) k/uL Sodium (137-145) mmol/L BUN (9-20) mg/dL Creatinine (0.66-1.25) mg/dL Glucose (74-99) mg/dL POC Glucose (mg/dL) 152 H 128 H (70-110) mg/dL Calcium (8.4-10.2) mg/dL 04/03/24 04/03/24 Range/Units 06:31 11:14 WBC (3.8-10.6) k/uL RBC (4.30-5.90) m/uL Hgb (13.0-17.5) gm/dL Hct (39.0-53.0) % Neutrophils # (1.3-7.7) k/uL Lymphocytes # (1.0-4.8) k/uL Sodium 129 L (137-145) mmol/L BUN 53 H (9-20) mg/dL Creatinine 1.56 H (0.66-1.25) mg/dL Glucose 116 H (74-99) mg/dL POC Glucose (mg/dL) 348 H (70-110) mg/dL Calcium 8.0 L (8.4-10.2) mg/dL Microbiology - Last 24 Hours (Table) 03/31/24 19:29 Blood Culture - Preliminary Blood 04/01/24 15:30 Gram Stain - Preliminary Groin Wound Culture - Preliminary Presumptive MRSA Assessment and Plan (1) Abscess of right groin Current Visit: Yes Status: Acute Code(s): L02.214 - CUTANEOUS ABSCESS OF GROIN SNOMED Code(s): 65872662 Plan: 1patient is in the hospital with the pain to the right groin area in this p atient who did have evidence of induration swelling redness concerning for the right groin abscess plus minus mild cellulitis to the lower extremity and likely from gram-positive skin rl. 2patient is status post drainage of the abscess and deep culture which are currently growing presumptive MRSA 3patient still has significant duration to the right groin area and would likely benefit from IV antibiotics on discharge he will get a PICC line if he going home we will recommend daptomycin however if he is going to the assisted vancomycin should be fine Dictation was produced using [employer] software. please excuse any grammatical, word or spelling errors. Time with Patient: Less than 30
--- NOTE | 2024-04-03 14:53 | P.DS ---
Providers Date of admission: 03/31/24 22:32 Attending physician: Gregorio Gibbons MD Consults: 03/31/24 22:30 Consult Physician Routine Consulting Provider: Robert Loomis Consult Reason/Comments: cellulitis Do you want consulting provider notified?: Yes 04/01/24 06:50 Consult Physician Routine Consulting Provider: Severino Barney Consult Reason/Comments: bilateral hydronephrosis Do you want consulting provider notified?: Yes 04/01/24 10:40 Consult Physician Routine Consulting Provider: Lion Valerio Consult Reason/Comments: right inguinal hematoma Do you want consulting provider notified?: Yes Primary care physician: Jim [employer] Course: Discharge Diagnosis: Right groin cellulitis with abscess Bilateral lower extremity cellulitis Sepsis on admission Bilateral hydronephrosis Hypomagnesemia hypokalemia Elevated troponin CKD stage III Mild hyponatremia Elevated D-dimer Hypertension Diabetes mellitus CKD Congestive heart failure History of glomerulonephritis Hospital Course: Patient s a 73-year-old male with a past medical history of hypertension, CKD stage III, diabetes mellitus and glomerulonephritis on immunosuppressants who presents to the ED for right testicular and right groin pain that started 2 days ago and has been progressively getting worse. In the ED patient had a CT abdomen and pelvis that showed bilateral hydronephrosis and stranding within the right inguinal region and hematoma cannot be excluded and also right inguinal lymphadenopathy. Patient testicular ultrasound was negative. Patient does report that he has a difficult time with urination. Patient admitted to the medicine service. Patient was started on vancomycin for bilateral lower extremity cellulitis and also cellulitis in the right inguinal area. Patient was seen by general surgery who did I&D of the abscess in the right groin area. The cultures grew MRSA. Infectious disease recommended daptomycin or vancomycin. Since patient requesting for outpatient infusion patient will be discharged on daptomycin. Patient also cleared for discharge by general surgery. Patient deemed stable for discharge. He refused to go to long-term facility. Patient started to follow-up with infectious disease and general surgery. Patient seen and examined at bedside.[] Vital signs reviewed and stable. 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 Patient discharged on 04/03/2024 Patient Condition at Discharge: Fair Plan - Discharge Summary New Discharge Prescriptions: New HYDROcodone/APAP 5-325MG [Kenney 5-325] 1 tab PO Q6HR PRN 3 Days #12 tab PRN Reason: Pain Aspirin 81 mg PO DAILY 30 Days #30 tab DAPTOmycin [Cubicin] 549 mg IVPB Q24HR each Tamsulosin [Flomax] 0.4 mg PO PC-BRKFST 30 Days #30 cap Continue Isosorbide Mononitrate ER [Imdur] 60 mg PO DAILY #30 tab.er.24h Atorvastatin [Lipitor] 40 mg PO HS #30 tab Metoprolol Tartrate [Lopressor] 50 mg PO BID-W/MEALS Magnesium Oxide [Mag-Ox] 400 mg PO DAILY Acetaminophen Tab [Tylenol] 650 mg PO Q8H PRN PRN Reason: Pain Pantoprazole [Protonix] 40 mg PO DAILY 30 Days #30 tab Insulin NPH Hum/Reg Insulin Hm [humuLIN 70/30 Kwikpen] 10 unit SQ AC-SUPPER Insulin NPH Hum/Reg Insulin Hm [humuLIN 70/30 Kwikpen] 20 unit SQ AC-BRKFST predniSONE [Deltasone] 20 mg PO DAILY #30 tab Torsemide [Demadex] 40 mg PO DAILY #90 tab Potassium Chloride ER [K-Dur 20] 40 meq PO DAILY #60 tab mycophenolate mofetiL [Cellcept] 250 mg PO BID metOLazone [Zaroxolyn] 5 mg PO Q48H amLODIPine [Norvasc] 5 mg PO DAILY Discharge Medication List Atorvastatin [Lipitor] 40 mg PO HS #30 tab 08/17/20 [Rx] Isosorbide Mononitrate ER [Imdur] 60 mg PO DAILY #30 tab.er.24h 08/17/20 [Rx] Pantoprazole [Protonix] 40 mg PO DAILY 30 Days #30 tab 05/10/23 [Rx] Acetaminophen Tab [Tylenol] 650 mg PO Q8H PRN 11/17/23 [History] Magnesium Oxide [Mag-Ox] 400 mg PO DAILY 11/17/23 [History] Metoprolol Tartrate [Lopressor] 50 mg PO BID-W/MEALS 11/17/23 [History] Insulin NPH Hum/Reg Insulin Hm [humuLIN 70/30 Kwikpen] 10 unit SQ AC-SUPPER 12/17/23 [History] Insulin NPH Hum/Reg Insulin Hm [humuLIN 70/30 Kwikpen] 20 unit SQ AC-BRKFST 12/17/23 [History] Potassium Chloride ER [K-Dur 20] 40 meq PO DAILY #60 tab 12/20/23 [Rx] Torsemide [Demadex] 40 mg PO DAILY #90 tab 12/20/23 [Rx] predniSONE [Deltasone] 20 mg PO DAILY #30 tab 12/20/23 [Rx] amLODIPine [Norvasc] 5 mg PO DAILY 04/01/24 [History] metOLazone [Zaroxolyn] 5 mg PO Q48H 04/01/24 [History] mycophenolate mofetiL [Cellcept] 250 mg PO BID 04/01/24 [History] Aspirin 81 mg PO DAILY 30 Days #30 tab 04/03/24 [Rx] DAPTOmycin [Cubicin] 549 mg IVPB Q24HR each 04/03/24 [Rx] HYDROcodone/APAP 5-325MG [Kenney 5-325] 1 tab PO Q6HR PRN 3 Days #12 tab 04/03/24 [Rx] Tamsulosin [Flomax] 0.4 mg PO PC-BRKFST 30 Days #30 cap 04/03/24 [Rx] Follow up Appointment(s)/Referral(s): Jim Anderson MD [Primary Care Provider] - 1-2 days Lion Valerio DO [Doctor of Osteopathic Medicine] - 1 Week [facility] [NON-STAFF] - [facility] [NON-STAFF] -
[2024-04-03 15:10] VITALS: BMI 31.6
[2024-04-03 16:10] LABS: Glucose,Whole Blood 124 mg/dL (70-110)
[2024-04-03] MEDS: DAPTOmycin 500 MG in SODIUM CHLORIDE 0.9% 50 ML IVPB SCH (17:09)
[2024-04-03 17:17] VITALS: BP 130/73; PULSE 94
[2024-04-04] MEDS ORDERED: VANCOMYCIN TROUGH DUE 1 EACH MISC MISCELLANE ONE (08:00)
== END 2024-04-03 18:49 | disposition home or self-care (01) | DRG 872 ==
LOC: EC 14:54 → 3SCARD 22:32
PROVIDERS: ADMIT Internal Medicine; ATTEND Internal Medicine
PROC: 0J9C0ZZ Drainage of Pelvic Region Subcutaneous Tissue and Fascia, Open Approach (ICD-10-PCS; principal; 2024-04-01 12:10)
DX: A41.02 Sepsis due to Methicillin resistant Staphylococcus aureus (principal); L03.116 Cellulitis of left lower limb; N13.30 Unspecified hydronephrosis; E87.1 Hypo-osmolality and hyponatremia; I13.0 Hypertensive heart and chronic kidney disease with heart failure and stage 1 through stage 4 chronic kidney disease, or unspecified chronic kidney disease; L02.214 Cutaneous abscess of groin; D84.821 Immunodeficiency due to drugs; I42.9 Cardiomyopathy, unspecified; L03.314 Cellulitis of groin; L03.115 Cellulitis of right lower limb; I50.9 Heart failure, unspecified; E11.22 Type 2 diabetes mellitus with diabetic chronic kidney disease; E78.5 Hyperlipidemia, unspecified; E83.42 Hypomagnesemia; E87.6 Hypokalemia; K57.30 Diverticulosis of large intestine without perforation or abscess without bleeding; N18.30 Chronic kidney disease, stage 3 unspecified; N43.3 Hydrocele, unspecified; R32 Unspecified urinary incontinence; I25.2 Old myocardial infarction; Z79.4 Long term (current) use of insulin; Z79.624 Long term (current) use of inhibitors of nucleotide synthesis; Z79.82 Long term (current) use of aspirin; Z79.899 Other long term (current) drug therapy; Z87.448 Personal history of other diseases of urinary system; Z87.891 Personal history of nicotine dependence
CPT/HCPCS: 36410; 36415; 74176; 76870; 76937; 80048; 80053; 80202; 81001; 83036; 83605; 83735; 83880; 84100; 84484; 85025; 85379; 85610; 85730; 87040; 87070; 87075; 87077; 87186; 87205; 93005; 93922; 93923; 93970; 93975; 96361; 96365; 96366; 96367; 96368; 96375; 99285

== ENCOUNTER 2024-09-24 11:48 | Inpatient (IN) | payer MEDICARE ==
--- NOTE | 2024-09-24 12:11 | ED ---
Fall HPI - General Chief Complaint: Fall Stated Complaint: fall Time Seen by Provider: 09/24/24 12:07 Source: EMS, RN notes reviewed Mode of arrival: EMS - History of Present Illness Initial Comments: 73-year-old male with history of congestive heart failure, diabetes, hyperlipid emia, hypertension, renal disease presenting for bilateral leg swelling. States he has become progressively more weak and has become unable to ambulate due to weakness. States he lives with family and they were trying to help him ambulate yesterday when he fell to his knees on the floor. He has several abrasions on his skin from the fall. He does endorse chest pain over the past day. Admits c hronic shortness of breath. Denies chest pain. Denies head injury from the fall. Also has confirmed bedbugs - Related Data Home Medications Medication Instructions Recorded Confirmed Acetaminophen Tab [Tylenol] 650 mg PO Q8H PRN 11/17/23 09/24/24 Magnesium Oxide [Mag-Ox] 400 mg PO DAILY 11/17/23 09/24/24 Metoprolol Tartrate [Lopressor] 50 mg PO BID-W/MEALS 11/17/23 09/24/24 Insulin NPH Hum/Reg Insulin Hm 10 unit SQ BID 12/17/23 09/24/24 [humuLIN 70/30 Kwikpen] mycophenolate mofetiL [Cellcept] 250 mg PO BID 04/01/24 09/24/24 Aspirin EC [Ecotrin Low Dose] 81 mg PO DAILY 09/24/24 09/24/24 Atorvastatin [Lipitor] 40 mg PO DAILY 09/24/24 09/24/24 Azithromycin [Zithromax Z Pack] See Taper PO DIRECTED 09/24/24 09/24/24 Potassium Chloride ER [K-Dur 20] 40 meq PO BID 09/24/24 09/24/24 Torsemide [Demadex] 20 mg PO BID 09/24/24 09/24/24 amLODIPine [Norvasc] 10 mg PO DAILY 09/24/24 09/24/24 Previous Rx's Medication Instructions Recorded Isosorbide Mononitrate ER [Imdur] 60 mg PO DAILY #30 tab.er.24h 08/17/20 predniSONE [Deltasone] 20 mg PO DAILY #30 tab 12/20/23 Tamsulosin [Flomax] 0.4 mg PO PC-BRKFST 30 Days #30 cap 04/03/24 Allergies Allergy/AdvReac Type Severity Reaction Status Date / Time No Known Allergies Allergy Verified 09/24/24 15:50 Review of Systems ROS Statement: Those systems with pertinent positive or pertinent negative responses have been documented in the HPI. ROS Other: All systems not noted in ROS Statement are negative. Past Medical History Past Medical History: Heart Failure, Diabetes Mellitus, Hyperlipidemia, Hypert ension, Renal Disease Additional Past Medical History / Comment(s): Cardiomyopathy, tumor in front of heart being monitored Last Myocardial Infarction Date:: 2022 History of Any Multi-Drug Resistant Organisms: MRSA Date of last positivie culture/infection: 04/01/24 MDRO Source:: GROIN Past Surgical History: No Surgical Hx Reported Past Anesthesia/Blood Transfusion Reactions: No Reported Reaction Additional Past Anesthesia/Blood Transfusion Reaction / Comment(s): . Past Psychological History: No Psychological Hx Reported Smoking Status: Former smoker Past Alcohol Use History: Rare Past Drug Use History: Marijuana - Past Family History Father Family Medical History: Diabetes Mellitus, Myocardial Infarction ([place]) Additional Family Medical History / Comment(s): Had leg amputation Mother History Unknown: Yes Family Medical History: No Reported History Sister(s) Family Medical History: Diabetes Mellitus Additional Family Medical History / Comment(s): 1 sister had arm amputated due to diabetes General Exam General appearance: alert, in no apparent distress Head exam: Present: atraumatic, normocephalic, normal inspection Eye exam: Present: normal appearance, PERRL, EOMI. Absent: scleral icterus, conjunctival injection, periorbital swelling Respiratory exam: Present: normal lung sounds bilaterally, wheezes. Absent: respiratory distress, rales, rhonchi, stridor Cardiovascular Exam: Present: normal rhythm, tachycardia, normal heart sounds. Absent: systolic murmur, diastolic murmur, rubs, gallop, clicks GI/Abdominal exam: Present: soft, normal bowel sounds. Absent: distended, tenderness, guarding, rebound, rigid Extremities exam: Present: full ROM, normal capillary refill. Absent: normal inspection (3+ edema bilaterally), tenderness, pedal edema, joint swelling, calf tenderness Neurological exam: Present: alert, oriented X3 Psychiatric exam: Present: normal affect, normal mood Skin exam: Present: warm, dry, intact, normal color, other (Skin abrasion on right dorsal hand and right anterior shoulder. Contusions to the left upper extremity). Absent: rash Course Vital Signs 09/24/24 09/24/24 09/24/24 11:51 13:00 14:00 Temperature 98.2 F Pulse Rate 110 H 109 H 96 Respiratory 18 24 24 Rate Blood Pressure 166/130 168/112 179/132 O2 Sat by Pulse 98 97 96 Oximetry 09/24/24 09/24/24 09/24/24 15:00 15:30 16:00 Temperature Pulse Rate 98 101 H 92 Respiratory 24 20 19 Rate Blood Pressure 149/124 171/118 157/140 O2 Sat by Pulse 97 98 96 Oximetry 09/24/24 16:30 Temperature Pulse Rate 91 Respiratory 24 Rate Blood Pressure 155/121 O2 Sat by Pulse 97 Oximetry Medical Decision Making - Medical Decision Making Was pt. sent in by a medical professional or institution (, PA, CIVIL ESTIMATOR, urgent care, hospital, or fdc...) When possible be specific @ -No Did you speak to anyone other than the patient for history (EMS, parent, family, police, friend...)? What history was obtained from this source @ -EMS supplemented history Did you review nursing and triage notes (agree or disagree)? Why? @ -I reviewed and agree with nursing and triage notes Were old charts reviewed (outside hosp., previous admission, EMS record, old EKG, old radiological studies, urgent care reports/EKG's, fdc records)? Report findings @ -No old charts were reviewed Differential Diagnosis (chest pain, altered mental status, abdominal pain women, abdominal pain men, vaginal bleeding, weakness, fever, dyspnea, syncope, headache, dizziness, GI bleed, back pain, seizure, CVA, palpatations, mental health, musculoskeletal)? @ -Differential Musculoskeletal CHF exacerbation, pneumonia, renal failure, muscular strain, contusion, ligament sprain, fracture, arthritis, septic arthritis, bursitis, cellulitis, muscle spasm, nerve compression, DVT, arterial occlusion, herpes zoster, electrolyte abnormality, tumor.... This is not meant to be in all inclusive list EKG interpreted by me (3pts min.). @ -As above X-rays interpreted by me (1pt min.). @ -Chest x-ray reveals pulmonary vascular congestion correlate for CHF exacerbation CT interpreted by me (1pt min.). @ -None done U/S interpreted by me (1pt. min.). @ -None done What testing was considered but not performed or refused? (CT, X-rays, U/S, labs)? Why? @ -Considered CT angio due to elevated D-dimer however decided with Dr. Pena to hold off on PE study and heparin drip for now as there is low suspicion for PE What meds were considered but not given or refused? Why? @ -None Did you discuss the management of the patient with other professionals (professionals i.e. DrCesar, PA, CIVIL ESTIMATOR, lab, RT, psych nurse, social science teacher, relationship advisor, teacher, state patrol officer, adult protective caseworker)? Give summary @ -I spoke with Dr. Pena who accepts admission for CHF exacerbation. Requested to hold off on PE study, hold off on heparin drip as there is low suspicion for PE at this time Was smoking cessation discussed for >3mins.? @ -No Was critical care preformed (if so, how long)? @ -No Were there social determinants of health that impacted care today? How? (Homelessness, low income, unemployed, alcoholism, drug addiction, transportation, low edu. Level, literacy, decrease access to med. care, [place] [facility], rehab)? @ -No Was there de-escalation of care discussed even if they declined (Discuss DNR or withdrawal of care, Hospice)? DNR status @ -No What co-morbidities impacted this encounter? (DM, HTN, Smoking, COPD, CAD, Cancer, CVA, ARF, Chemo, Hep., AIDS, mental health diagnosis, sleep apnea, morbid obesity)? @ -None Was patient admitted / discharged? Hospital course, mention meds given and route, prescriptions, significant lab abnormalities, going to OR and other pertinent info. @ -Admitted. 73-year-old male with history of CHF, DM, hyperlipidemia, hypertension, renal disease presenting for bilateral leg swelling. Patient is hypertensive at 166/130, tachycardic at 110 bpm, afebrile. There is 3+ edema in bilateral lower extremities. Patient also has confirmed bedbugs, were eradicated in ER. Lab work remarkable for leukocytosis of 21, BNP 44,000, troponin 0.2 comparable to baseline, hyperkalemia 5.5, hypomagnesemia 1.4. D- dimer elevated at 2. Normal lactic acid. Chest x-ray shows pulmonary vascular congestion consistent with CHF exacerbation. Blood cultures were taken and patient was prophylactically treated with Rocephin and azithromycin due to patient meets SIRS criteria due to tachycardia and leukocytosis. Patient was provided with dose of magnesium, labetalol, Lasix, and Lokelma. I spoke with Dr. Pena who accepts admission for CHF exacerbation and requested to hold off on PE study and heparin drip as there is low suspicion for PE at this time. Case was discussed with my ED attending Dr. Castañeda. Undiagnosed new problem with uncertain prognosis? @ -No Drug Therapy requiring intensive monitoring for toxicity (Heparin, Nitro, Insulin, Cardizem)? @ -No Were any procedures done? @ -No Diagnosis/symptom? @ -CHF exacerbation Acute, or Chronic, or Acute on Chronic? @ -Acute Uncomplicated (without systemic symptoms) or Complicated (systemic symptoms)? @ -Complicated Side effects of treatment? @ -No Exacerbation, Progression, or Severe Exacerbation? @ -Exacerbation Poses a threat to life or bodily function? How? (Chest pain, [place], [place], pneumonia, PE, COPD, DKA, ARF, appy, cholecystitis, CVA, Diverticulitis, Homicidal, Suicidal, threat to staff... and all critical care pts) @ -Yes - Lab Data Result diagrams: 09/24/24 12:39 09/24/24 12:39 Lab Results 09/24/24 09/24/24 09/24/24 Range/Units 12:39 12:39 12:39 WBC 21.7 H (3.8-10.6) k/uL RBC 4.50 (4.30-5.90) m/uL Hgb 12.3 L (13.0-17.5) gm/dL Hct 40.3 (39.0-53.0) % MCV 89.5 (80.0-100.0) fL MCH 27.3 (25.0-35.0) pg MCHC 30.6 L (31.0-37.0) g/dL RDW 15.3 (11.5-15.5) % Plt Count 322 (150-450) k/uL MPV 8.4 Neutrophils % 94 % Lymphocytes % 2 % Monocytes % 3 % Eosinophils % 0 % Basophils % 0 % Neutrophils # 20.5 H (1.3-7.7) k/uL Lymphocytes # 0.3 L (1.0-4.8) k/uL Monocytes # 0.7 (0-1.0) k/uL Eosinophils # 0.1 (0-0.7) k/uL Basophils # 0.0 (0-0.2) k/uL Hypochromasia Slight Poikilocytosis Slight PT (10.0-12.5) sec INR (<1.2) APTT (22.0-30.0) sec D-Dimer (<0.60) mg/L FEU Sodium 134 L (137-145) mmol/L Potassium 5.5 H (3.5-5.1) mmol/L Chloride 101 (98-107) mmol/L Carbon Dioxide 26 (22-30) mmol/L Anion Gap 7 mmol/L BUN 40 H (9-20) mg/dL Creatinine 1.64 H (0.66-1.25) mg/dL Est GFR (CKD-EPI)AfAm 47 (>60 ml/min/1.73 sqM) Est GFR (CKD-EPI)NonAf 41 (>60 ml/min/1.73 sqM) Glucose 90 (74-99) mg/dL Plasma Lactic Acid Andrea (0.7-2.0) mmol/L Calcium 9.3 (8.4-10.2) mg/dL Magnesium 1.4 L (1.6-2.3) mg/dL Total Bilirubin 0.6 (0.2-1.3) mg/dL AST 21 (17-59) U/L ALT 18 (4-49) U/L Alkaline Phosphatase 147 H (38-126) U/L Troponin I 0.201 H* (0.000-0.034) ng/mL NT-Pro-B Natriuret Pep 07076 pg/mL Total Protein 5.9 L (6.3-8.2) g/dL Albumin 3.2 L (3.5-5.0) g/dL 09/24/24 09/24/24 Range/Units 15:00 15:00 WBC (3.8-10.6) k/uL RBC (4.30-5.90) m/uL Hgb (13.0-17.5) gm/dL Hct (39.0-53.0) % MCV (80.0-100.0) fL MCH (25.0-35.0) pg MCHC (31.0-37.0) g/dL RDW (11.5-15.5) % Plt Count (150-450) k/uL MPV Neutrophils % % Lymphocytes % % Monocytes % % Eosinophils % % Basophils % % Neutrophils # (1.3-7.7) k/uL Lymphocytes # (1.0-4.8) k/uL Monocytes # (0-1.0) k/uL Eosinophils # (0-0.7) k/uL Basophils # (0-0.2) k/uL Hypochromasia Poikilocytosis PT 10.8 (10.0-12.5) sec INR 1.0 (<1.2) APTT 23.0 (22.0-30.0) sec D-Dimer 2.06 H (<0.60) mg/L FEU Sodium (137-145) mmol/L Potassium (3.5-5.1) mmol/L Chloride (98-107) mmol/L Carbon Dioxide (22-30) mmol/L Anion Gap mmol/L BUN (9-20) mg/dL Creatinine (0.66-1.25) mg/dL Est GFR (CKD-EPI)AfAm (>60 ml/min/1.73 sqM) Est GFR (CKD-EPI)NonAf (>60 ml/min/1.73 sqM) Glucose (74-99) mg/dL Plasma Lactic Acid Andrea 1.4 (0.7-2.0) mmol/L Calcium (8.4-10.2) mg/dL Magnesium (1.6-2.3) mg/dL Total Bilirubin (0.2-1.3) mg/dL AST (17-59) U/L ALT (4-49) U/L Alkaline Phosphatase (38-126) U/L Troponin I (0.000-0.034) ng/mL NT-Pro-B Natriuret Pep pg/mL Total Protein (6.3-8.2) g/dL Albumin (3.5-5.0) g/dL - EKG Data -: EKG Interpreted by Me EKG Comments: EKG reveals sinus tachycardia with no acute ST changes. Ventricular rate 110 bpm, CT interval 142, QRS duration 78, QT/QTc 308/373 Disposition Clinical Impression: CHF exacerbation Disposition: ADMITTED IP TO THIS HOSP Referrals: Jim Anderson MD [Primary Care Provider] - 1-2 days Time of Disposition: 17:12
[2024-09-24 13:39] LABS: Basophils % (A) 0 %; Eosinophils # (A) 0.1 k/uL (0-0.7); Eosinophils % (A) 0 %; HCT 40.3 % (39.0-53.0); HGB 12.3 gm/dL (13.0-17.5); Hypochromasia Slight; Lymphocytes # (A) 0.3 k/uL (1.0-4.8); Lymphocytes % (A) 2 %; MCH 27.3 pg (25.0-35.0); MCHC 30.6 g/dL (31.0-37.0); MCV 89.5 fL (80.0-100.0); Mean Platelet Volume 8.4; Monocytes # (A) 0.7 k/uL (0-1.0); Monocytes % (A) 3 %; Neutrophils # (A) 20.5 k/uL (1.3-7.7); Neutrophils % (A) 94 %; Platelet Count 322 k/uL (150-450); Poikilocytosis Slight; RDW 15.3 % (11.5-15.5); WBC 21.7 k/uL (3.8-10.6)
[2024-09-24 13:43] LABS: ALT 18 U/L (4-49); AST 21 U/L (17-59); African American GFR (CKD) 47 (>60 ml/min/1.73 sqM); Albumin 3.2 g/dL (3.5-5.0); Alkaline Phosphatase 147 U/L (38-126); Anion Gap 7 mmol/L; Blood Urea Nitrogen 40 mg/dL (9-20); Calcium 9.3 mg/dL (8.4-10.2); Carbon Dioxide 26 mmol/L (22-30); Chloride 101 mmol/L (98-107); Glucose 90 mg/dL (74-99); Magnesium 1.4 mg/dL (1.6-2.3); Non-African American GFR(CKD) 41 (>60 ml/min/1.73 sqM); Potassium 5.5 mmol/L (3.5-5.1); Sodium 134 mmol/L (137-145); Total Bilirubin 0.6 mg/dL (0.2-1.3); Total Protein 5.9 g/dL (6.3-8.2)
--- NOTE | 2024-09-24 14:11 | XR ---
EXAMINATION TYPE: XR chest 2V DATE OF EXAM: 09/24/2024 2:05 PM COMPARISON: Chest radiographs from 12/17/2023 TECHNIQUE: XR chest 2V Frontal and lateral views of the chest. CLINICAL INDICATION:Male, 73 years old with history of bilateral leg edema; FINDINGS: Patient is rotated which limits evaluation. Lungs/Pleura: There is no evidence of pleural effusion, focal consolidation, or pneumothorax. Pulmonary vascularity: Pulmonary vascular congestion. Heart/mediastinum: Cardiomediastinal silhouette is enlarged and stable. Musculoskeletal: No acute osseous pathology. IMPRESSION: Cardiomegaly and mild pulmonary vascular congestion. Correlate with BNP for congestive heart failure. [facility], , 09/24/2024 2:09 PM
[2024-09-24 15:02] LABS: NT-Pro-B-Type Natriuretic Pept 44100 pg/mL
[2024-09-24] MEDS: FUROSEMIDE 10 MG/ML 4 ML VIAL IV STA (15:02)
[2024-09-24] MEDS: SODIUM ZIRCONIUM CYCLOSILICATE 10 GM PACKET PO ONE (15:08)
[2024-09-24] MEDS: MAGNESIUM SULFATE-D5W PMX 1 GM in DEXTROSE/WATER 1 100ML.BAG IVPB SCH (15:08)
[2024-09-24 15:41] LABS: Prothrombin Time 10.8 sec (10.0-12.5)
[2024-09-24] MEDS: AZITHROMYCIN 500 MG in SODIUM CHLORIDE 0.9% 250 ML IVPB STA (16:18)
[2024-09-24] MEDS ORDERED: MORPHINE SULFATE 4 MG/ML SYRINGE IV PRN (17:07)
[2024-09-24] MEDS ORDERED: HYDROmorphone 0.5 MG/0.5 ML SYRINGE IVP PRN (17:07)
[2024-09-24] MEDS ORDERED: NALOXONE 0.4 MG/ML 1 ML VIAL IV PRN (17:07)
[2024-09-24] MEDS ORDERED: ONDANSETRON 4 MG/2 ML VIAL IVP PRN (17:07)
[2024-09-24] MEDS: LABETALOL 5 MG/ML VIAL MDV IVP STA (17:26)
[2024-09-24] MEDS ORDERED: DEXTROSE 50% SYRINGE 50 ML IVP PRN ×2 (18:07)
--- NOTE | 2024-09-24 18:26 | P.HPIM ---
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 He states he is progressively become more weak and has been unable to ambulate secondary increased following. He josselin es with his family and they were attempting to help him ambulate yesterday when he fell to his knees and onto the floor. He endorses having had some chest pain over the past day or so, however none at the time of interview, and endorses having shortness of breath although admits that that is chronic however has been worsening. Labratory review: -WBCs 21.7, hemoglobin 12.3, hematocrit 40.3, platelet 322; D-dimer 2.06; sodium 134, potassium 5.5, BUN 40, creatinine 1.64, lactic acid 1.4, calcium 9.3, magnesium 1.4, total bilirubin 0.6, AST 21, ALT 18, alkaline phosphatase 147; troponin 0.201, proBNP 44,100 Imaging: -Chest x-ray done in the ER showed cardiomegaly with mild pulmonary vascular congestion -EKG done in the ER showed heart rate of 110, no ST segment elevation or depression seen, no T-wave inversions seen. Vitals: -On arrival: Blood pressure 166/130, heart rate 110, respiratory 18, SpO2 98% on room air -Most recently: Blood pressure 155/121, heart rate 91, respiratory rate 24, SpO2 97% on room air Patient admitted to internal medicine service REVIEW OF SYSTEMS: Pertinent positives and negatives noted in HPI. The rest of the 14-point review of systems is negative. Physical Exam: General: nontoxic, no distress, appears at stated age Derm: Abrasions throughout the body, right upper extremity, right knee, bilateral shoulders Head: atraumatic, normocephalic, symmetric Eyes: EOMI, anicteric sclera Mouth: no lip lesion, mucus membranes moist Cardiovascular: S1 S2 reg, no murmur, rubs, or gallops Lungs: Rales noted in the bilateral lower lobes Abdominal: soft, non-tender to palpataion, no appreciable organomegaly Extremities: 3+ edema in the bilateral lower extremity extending up to the lower abdomen/torso Neuro: Alert, Oriented, CNII-XII grossly intact, gait normal Psych: well appearing, appropriate affect Assessment and plan 73-year-old man with PMH of HFpEF (most recent echocardiogram completed on October 2023 which showed EF 50-55%), diabetes mellitus, hyperlipidemia, hypertension and 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 #Acute on chronic HFpEF (most recent echocardiogram completed in October 2023 showed EF 50-50%) #NSTEMI, likely type II -Initial troponin 0.201, proBNP 44,100 -Trend troponins; If troponin continues to have upward trajectory initiate heparin drip -Initiate 40 mg IV Lasix every 12 hours, monitor for electrolytes -Hold amlodipine -Continue home Aspirin, Lipitor, Imdur and Metoprolol -Fluid restrict to 1500 cc -Echocardiogram ordered, currently pending -Strict I's and O's, daily weights -Monitor electrolytes -Cardiac monitoring #Hyperkalemia -Potassium on arrival 5.5 -Patient received 10 g Lokelma once in the ED -Hold home potassium chloride 40 meq BID -Continue to monitor BMP -If potassium remains elevated, initiate protocol hyperkalemia intervention #Hyponatremia, likely hypervolemic -Consider fluid restriction of 1500 cc daily -Continue to monitor BMP #Hypomagnesemia -Magnesium on arrival 1.4 -Given 400 mg Mag-Ox once in the ED -Resume home 400 mg Mag-Ox daily -Repeat levels tomorrow #Leukocytosis, likely reactive in addition to home prednisone -21.7 on arrival -Continue to monitor CBC -Blood culture pending #Chronic anemia secondary to CKD -12.3 on arrival -Not currently bleeding #CKD stage IIIb secondary to biopsy proven crescentric glomerulonephritis, baseline creatinine 1.61.8 -Resumed home Cellcept and prednisone -Avoid nephrotoxic agents -Monitor BMP -UA ordered, currently pending #Diabetes -Continue home 70/30 insulin -Initiate sliding scale -Accuchecks ACHS -Monitor fo hypoglycemia #Elevated D-Dimer -V/Q scan ordered, currently pending GI prophylaxis: Protonix 40 mg daily DVT prophylaxis: Heparin 5000 units subcu every 8 hours The patient is admitted with an anticipated more than than 2 midnight stay for evaluation of CHF exacerbation CODE STATUS: Full code Discussed with: Patient Anticipated discharge place: Pending clinical course Dictation was produced using [employer] dictation software. please excuse any grammatical, word or spelling errors. Ray Nagel MD PGY-1 IM I have seen and evaluated the patient today. Discussed with the resident and agree with the residents finding and plan as documented in the resident's note. Changes highlighted in blue font. Past Medical History Past Medical History: Heart Failure, Diabetes Mellitus, Hyperlipidemia, Hypertension, Renal Disease Additional Past Medical History / Comment(s): Cardiomyopathy, tumor in front of heart being monitored Last Myocardial Infarction Date:: 2022 History of Any Multi-Drug Resistant Organisms: MRSA Date of last positivie culture/infection: 04/01/24 MDRO Source:: GROIN Past Surgical History: No Surgical Hx Reported Past Anesthesia/Blood Transfusion Reactions: No Reported Reaction Additional Past Anesthesia/Blood Transfusion Reaction / Comment(s): . Past Psychological History: No Psychological Hx Reported Smoking Status: Former smoker Past Alcohol Use History: Rare Past Drug Use History: Marijuana - Past Family History Father Family Medical History: Diabetes Mellitus, Myocardial Infarction ([place]) Additional Family Medical History / Comment(s): Had leg amputation Mother History Unknown: Yes Family Medical History: No Reported History Sister(s) Family Medical History: Diabetes Mellitus Additional Family Medical History / Comment(s): 1 sister had arm amputated due to diabetes Medications and Allergies Home Medications Medication Instructions Recorded Confirmed Type Isosorbide Mononitrate ER [Imdur] 60 mg PO DAILY #30 tab.er.24h 08/17/20 09/24/24 Rx Acetaminophen Tab [Tylenol] 650 mg PO Q8H PRN 11/17/23 09/24/24 History Magnesium Oxide [Mag-Ox] 400 mg PO DAILY 11/17/23 09/24/24 History Metoprolol Tartrate [Lopressor] 50 mg PO BID-W/MEALS 11/17/23 09/24/24 History Insulin NPH Hum/Reg Insulin Hm 10 unit SQ BID 12/17/23 09/24/24 History [humuLIN 70/30 Kwikpen] predniSONE [Deltasone] 20 mg PO DAILY #30 tab 12/20/23 09/24/24 Rx mycophenolate mofetiL [Cellcept] 250 mg PO BID 04/01/24 09/24/24 History Tamsulosin [Flomax] 0.4 mg PO PC-BRKFST 30 Days #30 cap 04/03/24 09/24/24 Rx Aspirin EC [Ecotrin Low Dose] 81 mg PO DAILY 09/24/24 09/24/24 History Atorvastatin [Lipitor] 40 mg PO DAILY 09/24/24 09/24/24 History Azithromycin [Zithromax Z Pack] See Taper PO DIRECTED 09/24/24 09/24/24 History Potassium Chloride ER [K-Dur 20] 40 meq PO BID 09/24/24 09/24/24 History Torsemide [Demadex] 20 mg PO BID 09/24/24 09/24/24 History amLODIPine [Norvasc] 10 mg PO DAILY 09/24/24 09/24/24 History Allergies Allergy/AdvReac Type Severity Reaction Status Date / Time No Known Allergies Allergy Verified 09/24/24 15:50 Physical Exam Vitals: Vital Signs Temp Pulse Resp BP Pulse Ox 09/24/24 16:30 91 24 155/121 97 09/24/24 16:00 92 19 157/140 96 09/24/24 15:30 101 H 20 171/118 98 09/24/24 15:00 98 24 149/124 97 09/24/24 14:00 96 24 179/132 96 09/24/24 13:00 109 H 24 168/112 97 09/24/24 11:51 98.2 F 110 H 18 166/130 98 Intake and Output 09/24/24 09/24/24 09/24/24 06:59 14:59 22:59 Other: Weight 90.718 kg Results CBC & Chem 7: 09/24/24 12:39 09/24/24 12:39 Labs: Abnormal Lab Results - Last 24 Hours (Table) 09/24/24 09/24/24 09/24/24 Range/Units 12:39 12:39 12:39 WBC 21.7 H (3.8-10.6) k/uL Hgb 12.3 L (13.0-17.5) gm/dL MCHC 30.6 L (31.0-37.0) g/dL Neutrophils # 20.5 H (1.3-7.7) k/uL Lymphocytes # 0.3 L (1.0-4.8) k/uL D-Dimer (<0.60) mg/L FEU Sodium 134 L (137-145) mmol/L Potassium 5.5 H (3.5-5.1) mmol/L BUN 40 H (9-20) mg/dL Creatinine 1.64 H (0.66-1.25) mg/dL Magnesium 1.4 L (1.6-2.3) mg/dL Alkaline Phosphatase 147 H (38-126) U/L Troponin I 0.201 H* (0.000-0.034) ng/mL Total Protein 5.9 L (6.3-8.2) g/dL Albumin 3.2 L (3.5-5.0) g/dL 09/24/24 Range/Units 15:00 WBC (3.8-10.6) k/uL Hgb (13.0-17.5) gm/dL MCHC (31.0-37.0) g/dL Neutrophils # (1.3-7.7) k/uL Lymphocytes # (1.0-4.8) k/uL D-Dimer 2.06 H (<0.60) mg/L FEU Sodium (137-145) mmol/L Potassium (3.5-5.1) mmol/L BUN (9-20) mg/dL Creatinine (0.66-1.25) mg/dL Magnesium (1.6-2.3) mg/dL Alkaline Phosphatase (38-126) U/L Troponin I (0.000-0.034) ng/mL Total Protein (6.3-8.2) g/dL Albumin (3.5-5.0) g/dL
[2024-09-24] MEDS: ASPIRIN 81 MG PO SCH (18:40)
[2024-09-24] MEDS: MAGNESIUM OXIDE 400 MG TAB PO STA (18:40)
[2024-09-24 19:15] LABS: Appearance,Urine Clear (Clear); Bacteria,Urine Rare /hpf; Bilirubin,Urine Negative (Negative); Blood,Urine Negative (Negative); Color,Urine Colorless; Glucose,Urine (UA) Negative (Negative); Ketones,Urine Negative (Negative); Leukocyte Esterase,Urine Negative (Negative); Mucus,Urine Rare /hpf; Nitrite,Urine Negative (Negative); PH, Urine 6.5 (5.0-8.0); Protein,Urine 1+ (Negative); RBC,Urine 1 /hpf (0-5); Specific Gravity,Urine 1.007 (1.001-1.035); Urobilinogen,Urine <2.0 mg/dL (<2.0); WBC,Urine <1 /hpf (0-5)
[2024-09-24 20:55] LABS: Glucose,Whole Blood 114 mg/dL (70-110)
[2024-09-24] MEDS: INSULIN LISPRO (HumaLOG) 100 UNIT/ML 10 mL VL SQ SCH (21:12)
[2024-09-24] MEDS: FUROSEMIDE 10 MG/ML 4 ML VIAL IV SCH (21:48)
[2024-09-24 22:10] LABS: Glucose,Whole Blood 164 mg/dL (70-110)
[2024-09-24] MEDS: INSULIN NPL/INSULIN LISPRO 100 UNIT/ML 10 ML VL (Humalog 75/25) SQ SCH (22:24)
[2024-09-24] MEDS: ACETAMINOPHEN TAB 325 MG TAB PO PRN (23:57)
[2024-09-25] MEDS: HEPARIN SODIUM,PORCINE 5,000 UNIT/ML 1 ML VIAL SQ SCH (01:47)
[2024-09-25 04:22] LABS: ALT 17 U/L (4-49); AST 19 U/L (17-59); African American GFR (CKD) 47 (>60 ml/min/1.73 sqM); Albumin 2.7 g/dL (3.5-5.0); Albumin/Globulin Ratio 1.1; Alkaline Phosphatase 137 U/L (38-126); Anion Gap 7 mmol/L; Blood Urea Nitrogen 41 mg/dL (9-20); Calcium 8.7 mg/dL (8.4-10.2); Carbon Dioxide 25 mmol/L (22-30); Chloride 102 mmol/L (98-107); Globulin 2.4 g/dL; Glucose 133 mg/dL (74-99); Magnesium 1.9 mg/dL (1.6-2.3); Non-African American GFR(CKD) 41 (>60 ml/min/1.73 sqM); Potassium 4.1 mmol/L (3.5-5.1); Sodium 134 mmol/L (137-145); Total Bilirubin 0.3 mg/dL (0.2-1.3); Total Protein 5.1 g/dL (6.3-8.2)
[2024-09-25 06:12] LABS: Glucose,Whole Blood 83 mg/dL (70-110)
[2024-09-25] MEDS: METOPROLOL TARTRATE 50 MG TAB PO SCH (08:10)
[2024-09-25] MEDS: ISOSORBIDE MONONITRATE ER 60 MG TAB.ER.24H PO SCH (08:11)
[2024-09-25] MEDS: ATORVASTATIN 40 MG TAB PO SCH (08:11)
[2024-09-25] MEDS: TAMSULOSIN 0.4 MG CAP.ER.24H PO SCH (08:11)
[2024-09-25] MEDS: predniSONE 20 MG TAB PO SCH (08:11)
[2024-09-25] MEDS: MAGNESIUM OXIDE 400 MG TAB PO SCH (08:11)
[2024-09-25] MEDS: PANTOPRAZOLE 40 MG TABLET PO SCH (08:11)
[2024-09-25 08:12] LABS: Basophils # (A) 0.04 X 10*3/uL (0.00-0.10); Basophils % (A) 0.2 %; Eosinophils # (A) 0.02 X 10*3/uL (0.04-0.35); Eosinophils % (A) 0.1 %; HCT 33.2 % (39.6-50.0); HGB 10.5 g/dL (13.0-17.0); Lymphocytes # (A) 0.83 X 10*3/uL (0.90-5.00); Lymphocytes % (A) 4.5 %; MCH 28.8 pg (27.0-32.0); MCHC 31.6 g/dL (32.0-37.0); Mean Platelet Volume 10.9 FL (9.5-12.2); Monocytes # (A) 0.85 X 10*3/uL (0.20-1.00); Monocytes % (A) 4.7 %; NRBC Per 100 WBC 0 X 10*3/uL (0.00-0.01); Neutrophils # (A) 16.32 X 10*3/uL (1.80-7.70); Neutrophils % (A) 89.5 %; Platelet Count 313 X 10*3/uL (140-440); RBC 3.65 X 10*6/uL (4.40-5.60); WBC 18.25 X 10*3/uL (4.50-10.00)
--- NOTE | 2024-09-25 09:48 | NM ---
EXAMINATION TYPE: NM pul vent and perfuse DATE OF EXAM: 09/25/2024 CLINICAL INDICATION: Male, 73 years old with history of possible PE; COMPARISON: Chest radiograph 09/24/2024 TECHNIQUE: Utilizing inhalation of 68.0 mCi Tc 99m DTPA aerosol and intravenous injection of 4.6 mCi of Tc 99m MAA, ventilation and perfusion images are acquired post injection in multiple projections. FINDINGS: Normal radiotracer distribution is noted in the lungs. There is no evidence of mismatched defects. IMPRESSION: No mismatched defects to suggest pulmonary embolism. [facility], , 09/25/2024 9:45 AM
[2024-09-25 11:15] LABS: Glucose,Whole Blood 160 mg/dL (70-110)
--- NOTE | 2024-09-25 12:01 | CA ---
Transthoracic Echo Report Name: Nadeem Moreno Age: 73 Gender: M : 1950 Exam Date: 09/25/2024 10:10 Exam Location: [facility] Ht (in): 68 Wt (lb): 200 Ordering Physician: Rohit Pena MD Attending/Referring Phys: [id number], Jean Arc Cutter NN Procedure CPT: Indications: nstemi Cardiac Hx: Technical Quality: Poor Contrast 1: Definity Total Dose (mL): 2 Contrast 2: Total Dose (mL): MEASUREMENTS (Male / Female) Normal Values 2D ECHO LV Diastolic Diameter PLAX 3.5 cm 4.2 - 5.9 / 3.9 - 5.3 cm LV Systolic Diameter PLAX 3.1 cm IVS Diastolic Thickness 1.4 cm 0.6 - 1.0 / 0.6 - 0.9 cm LVPW Diastolic Thickness 1.4 cm 0.6 - 1.0 / 0.6 - 0.9 cm LV Relative Wall Thickness 0.8 RV Internal Dim ED PLAX 3.1 cm LVOT Diameter 1.1 cm LA Systolic Diameter LX 4.3 cm 3.0 - 4.0 / 2.7 - 3.8 cm LV Diastolic Volume MOD BP 148.3 cm??? 67 - 155 / 56 - 104 cm??? LV Systolic Volume MOD BP 106.8 cm??? / 19 - 49 cm??? LV Ejection Fraction MOD BP 28.0 % >= 55 % LV Cardiac Index MOD BP 1673.1 cm???/min???m??? LV Diastolic Volume MOD 4C 141.0 cm??? LV Systolic Volume MOD 4C 100.7 cm??? LV Ejection Fraction MOD 4C 28.6 % LV Cardiac Index MOD 4C 1623.7 cm???/min???m??? LV Diastolic Length 4C 9.4 cm LV Systolic Length 4C 8.6 cm LV Diastolic Volume MOD 2C 148.7 cm??? LV Systolic Volume MOD 2C 108.1 cm??? LV Ejection Fraction MOD 2C 27.3 % LV Cardiac Index MOD 2C 1634.1 cm???/min???m??? LV Diastolic Length 2C 9.9 cm LV Systolic Length 2C 9.2 cm LA Volume 36.0 cm??? - / 22 - 52 cm??? LA Volume Index 17.0 cm???/m??? 16 - 28 cm???/m??? DOPPLER AV Peak Velocity 288.1 cm/s AV Peak Gradient 33.2 mmHg AV Mean Velocity 223.5 cm/s AV Mean Gradient 24.9 mmHg AV Velocity Time Integral 62.8 cm LVOT Peak Velocity 77.6 cm/s LVOT Peak Gradient 2.4 mmHg LVOT Velocity Time Integral 17.1 cm LVOT Stroke Volume 17.3 cm??? LVOT Stroke Volume Index 8.4 ml/m??? LVOT Cardiac Index 694.5 cm???/min???m??? AV Area Cont Eq vti 0.3 cm??? AV Area Cont Eq pk 0.3 cm??? MV Peak Velocity 113.1 cm/s MV Peak Gradient 5.1 mmHg MV Mean Velocity 63.7 cm/s MV Mean Gradient 2.0 mmHg MV Velocity Time Integral 32.6 cm MV Area PHT 2.7 cm??? Mitral E Point Velocity 110.1 cm/s Mitral A Point Velocity 71.3 cm/s Mitral E to A Ratio 1.5 MV Deceleration Time 228.1 ms TR Peak Velocity 236.4 cm/s TR Peak Gradient 22.4 mmHg FINDINGS Left Ventricle Moderately increased left ventricular wall thickness. Reduced global left ventricular systolic function. Left ventricular ejection fraction is estimated at 30-35 %. Right Ventricle Normal right ventricular size and function. Right Atrium Normal right atrial size. Left Atrium Mildly increased left atrial diameter. Mitral Valve Structurally normal mitral valve. Moderate mitral regurgitation. Aortic Valve Trileaflet aortic valve. Moderate aortic stenosis with a peak gradient of 38 mmHg and a mean gradient of 25 mmHg. Tricuspid Valve Structurally normal tricuspid valve. Mild tricuspid regurgitation. Pulmonic Valve Structurally normal pulmonic valve. Pericardium No pericardial effusion. Aorta Normal size aortic root and proximal ascending aorta. CONCLUSIONS Cardiomyopathy with an ejection fraction of 30 to 35% Moderate aortic stenosis Moderate mitral regurgitation Previewed by: Dr. Connor Haddad MD (Electronically Signed) Final Date: 25 September 2024 12:01
--- NOTE | 2024-09-25 12:05 | P.PN ---
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 He states he is progressively become more weak and has been unable to ambulate secondary increased following. He lives with his family and they were attempting to help him ambulate yesterday when he fell to his knees and onto the floor. He endorses having had some chest pain over the past day or so, however none at the time of interview, and endor ses having shortness of breath although admits that that is chronic however has been worsening. 09/25 - Patient seen and examined at bedside this morning, now up on the third floor. No acute events overnight. states he is feeling pretty well, no chest pain, no worsening shortness of breath. He continues to be on room air saturating in the high 90%s. The swelling of his legs has greatly decreased as compared to yesterday, extending only to the knee today. Will discuss with case management plan for discharge on the potential need for rehab. He has no acute complaints at this time. REVIEW OF SYSTEMS: Pertinent positives and negatives noted in HPI. Physical Exam: General: nontoxic, no distress, appears at stated age Derm: Abrasions throughout the body, right upper extremity, right knee, bilateral shoulders Head: atraumatic, normocephalic, symmetric Eyes: EOMI, anicteric sclera Mouth: no lip lesion, mucus membranes moist Cardiovascular: S1 S2 reg, no murmur, rubs, or gallops Lungs: Rales noted in the bilateral lower lobes Abdominal: soft, non-tender to palpataion, no appreciable organomegaly Extremities: 3+ edema in the bilateral lower extremity extending up to the knee Neuro: Alert, Oriented, CNII-XII grossly intact, gait normal Psych: well appearing, appropriate affect Data Received Today: Labs: Sodium 134, potassium 4.1, BUN 41, creatinine 1.64, glucose 133, calcium 8.7, magnesium 1.9, alkaline phosphatase 137 Imagining: V/Q perfusion test showed no mismatch defects to suggest pulmonary embolism Assessment and plan 73-year-old man with PMH of HFpEF (most recent echocardiogram completed on October 2023 which showed EF 50-55%), diabetes mellitus, hyperlipidemia, hypertension and 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 #Acute on chronic HFpEF (most recent echocardiogram completed in October 2023 showed EF 50-50%) #NSTEMI, likely type II -Initial troponin 0.201, proBNP 44,100 -Continue with 40 mg IV Lasix every 12 hours, monitor for electrolytes -Hold amlodipine -Continue home Aspirin, Lipitor, Imdur and Metoprolol -Fluid restrict to 1500 cc -Echocardiogram ordered, currently pending -Strict I's and O's, daily weights -Cardiac monitoring #Hyperkalemia, resolved -Potassium on arrival 4.1 -Patient received 10 g Lokelma once in the ED -Hold home potassium chloride 40 meq BID -Continue to monitor BMP #Hyponatremia, likely hypervolemic -Fuid restriction of 1500 cc daily -Continue to monitor BMP #Hypomagnesemia, resolved -Magnesium this morning 1.9 -Given 400 mg Mag-Ox once in the ED -Resume home 400 mg Mag-Ox daily -Repeat levels tomorrow #Leukocytosis, likely reactive in addition to home prednisone -WBCs 18.25 this morning -Continue to monitor CBC -Blood culture pending #Chronic anemia secondary to CKD -hemoglobin 10.5 this morning -Not currently bleeding -Continue monitor CBC #CKD stage IIIb secondary to biopsy proven crescentric glomerulonephritis, baseline creatinine 1.61.8 -Resumed home Cellcept and prednisone -Avoid nephrotoxic agents -Monitor BMP -UA ordered, currently pending #Diabetes -Continue home 70/30 insulin -Did not receive morning dose secondary to blood sugar being 83 on POC -Initiate sliding scale -Accuchecks ACHS -Monitor fo hypoglycemia #Elevated D-Dimer -V/Q scan came back negative GI prophylaxis: Protonix 40 mg daily DVT prophylaxis: Heparin 5000 units subcu every 8 hours CODE STATUS: Full code Anticipated discharge place: Rehab Anticipated discharge time: Pending bed availability Dictation was produced using [employer] dictation software. please excuse any grammatical, word or spelling errors. Ray Nagel MD PGY-1 IM I have seen and evaluated the patient today. Discussed with the resident and agree with the residents finding and plan as documented in the resident's note. Changes highlighted in blue font. Objective - Vital Signs Vital signs: Vital Signs Temp 98 F 09/25/24 03:15 Pulse 50 L 09/25/24 03:15 Resp 18 09/25/24 03:15 BP 131/69 09/25/24 03:15 Pulse Ox 98 09/25/24 03:15 FiO2 Intake & Output 09/24/24 09/25/24 09/25/24 18:59 06:59 18:59 Intake Total 237 Output Total 900 Balance -663 Weight 90.718 kg 93.2 kg Intake: Oral 237 Output: Urine 900 Other: Voiding Method External Catheter - Labs CBC & Chem 7: 09/25/24 00:46 09/25/24 00:46 Labs: Abnormal Lab Results - Last 24 Hours (Table) 09/24/24 09/24/24 09/24/24 Range/Units 12:39 12:39 12:39 WBC 21.7 H (3.8-10.6) k/uL Hgb 12.3 L (13.0-17.5) gm/dL MCHC 30.6 L (31.0-37.0) g/dL Neutrophils # 20.5 H (1.3-7.7) k/uL Lymphocytes # 0.3 L (1.0-4.8) k/uL D-Dimer (<0.60) mg/L FEU Sodium 134 L (137-145) mmol/L Potassium 5.5 H (3.5-5.1) mmol/L BUN 40 H (9-20) mg/dL Creatinine 1.64 H (0.66-1.25) mg/dL Glucose (74-99) mg/dL POC Glucose (mg/dL) (70-110) mg/dL Magnesium 1.4 L (1.6-2.3) mg/dL Alkaline Phosphatase 147 H (38-126) U/L Troponin I 0.201 H* (0.000-0.034) ng/mL Total Protein 5.9 L (6.3-8.2) g/dL Albumin 3.2 L (3.5-5.0) g/dL Urine Protein (Negative) Urine Bacteria (None) /hpf Urine Mucus (None) /hpf 09/24/24 09/24/24 09/24/24 Range/Units 15:00 18:55 20:16 WBC (3.8-10.6) k/uL Hgb (13.0-17.5) gm/dL MCHC (31.0-37.0) g/dL Neutrophils # (1.3-7.7) k/uL Lymphocytes # (1.0-4.8) k/uL D-Dimer 2.06 H (<0.60) mg/L FEU Sodium (137-145) mmol/L Potassium (3.5-5.1) mmol/L BUN (9-20) mg/dL Creatinine (0.66-1.25) mg/dL Glucose (74-99) mg/dL POC Glucose (mg/dL) (70-110) mg/dL Magnesium (1.6-2.3) mg/dL Alkaline Phosphatase (38-126) U/L Troponin I 0.216 H* (0.000-0.034) ng/mL Total Protein (6.3-8.2) g/dL Albumin (3.5-5.0) g/dL Urine Protein 1+ H (Negative) Urine Bacteria Rare H (None) /hpf Urine Mucus Rare H (None) /hpf 09/24/24 09/24/24 09/25/24 Range/Units 20:53 22:09 00:46 WBC (3.8-10.6) k/uL Hgb (13.0-17.5) gm/dL MCHC (31.0-37.0) g/dL Neutrophils # (1.3-7.7) k/uL Lymphocytes # (1.0-4.8) k/uL D-Dimer (<0.60) mg/L FEU Sodium 134 L (137-145) mmol/L Potassium (3.5-5.1) mmol/L BUN 41 H (9-20) mg/dL Creatinine 1.64 H (0.66-1.25) mg/dL Glucose 133 H (74-99) mg/dL POC Glucose (mg/dL) 114 H 164 H (70-110) mg/dL Magnesium (1.6-2.3) mg/dL Alkaline Phosphatase 137 H (38-126) U/L Troponin I (0.000-0.034) ng/mL Total Protein 5.1 L (6.3-8.2) g/dL Albumin 2.7 L (3.5-5.0) g/dL Urine Protein (Negative) Urine Bacteria (None) /hpf Urine Mucus (None) /hpf 09/25/24 Range/Units 00:46 WBC (3.8-10.6) k/uL Hgb (13.0-17.5) gm/dL MCHC (31.0-37.0) g/dL Neutrophils # (1.3-7.7) k/uL Lymphocytes # (1.0-4.8) k/uL D-Dimer (<0.60) mg/L FEU Sodium (137-145) mmol/L Potassium (3.5-5.1) mmol/L BUN (9-20) mg/dL Creatinine (0.66-1.25) mg/dL Glucose (74-99) mg/dL POC Glucose (mg/dL) (70-110) mg/dL Magnesium (1.6-2.3) mg/dL Alkaline Phosphatase (38-126) U/L Troponin I 0.158 H* (0.000-0.034) ng/mL Total Protein (6.3-8.2) g/dL Albumin (3.5-5.0) g/dL Urine Protein (Negative) Urine Bacteria (None) /hpf Urine Mucus (None) /hpf
[2024-09-25 16:27] LABS: Glucose,Whole Blood 286 mg/dL (70-110)
[2024-09-25 19:56] LABS: Glucose,Whole Blood 276 mg/dL (70-110)
[2024-09-26 05:53] LABS: Glucose,Whole Blood 117 mg/dL (70-110)
[2024-09-26 07:49] LABS: Basophils % (A) 0 %; Eosinophils # (A) 0.1 k/uL (0-0.7); Eosinophils % (A) 1 %; HCT 35.3 % (39.0-53.0); HGB 11.4 gm/dL (13.0-17.5); Hypochromasia Slight; Lymphocytes # (A) 1.1 k/uL (1.0-4.8); Lymphocytes % (A) 10 %; MCH 28.6 pg (25.0-35.0); MCHC 32.4 g/dL (31.0-37.0); MCV 88.4 fL (80.0-100.0); Mean Platelet Volume 7.8; Monocytes # (A) 0.7 k/uL (0-1.0); Monocytes % (A) 6 %; Neutrophils # (A) 9.4 k/uL (1.3-7.7); Neutrophils % (A) 82 %; Platelet Count 290 k/uL (150-450); RBC 3.99 m/uL (4.30-5.90); RDW 15.1 % (11.5-15.5); WBC 11.4 k/uL (3.8-10.6)
[2024-09-26 07:59] LABS: African American GFR (CKD) 45 (>60 ml/min/1.73 sqM); Anion Gap 8 mmol/L; Blood Urea Nitrogen 46 mg/dL (9-20); Calcium 8.5 mg/dL (8.4-10.2); Carbon Dioxide 25 mmol/L (22-30); Chloride 100 mmol/L (98-107); Glucose 126 mg/dL (74-99); Non-African American GFR(CKD) 39 (>60 ml/min/1.73 sqM); Potassium 4.2 mmol/L (3.5-5.1); Sodium 133 mmol/L (137-145)
[2024-09-26] MEDS: DAPAGLIFLOZIN PROPANEDIOL 10 MG TABLET PO SCH (10:45)
[2024-09-26] MEDS: LOSARTAN 25 MG TAB PO SCH (10:45)
[2024-09-26] MEDS: SPIRONOLACTONE 25 MG TAB PO SCH (10:45)
[2024-09-26 11:22] LABS: Glucose,Whole Blood 177 mg/dL (70-110)
--- NOTE | 2024-09-26 12:09 | P.PN ---
Subjective Progress Note Date: 09/26/24 I have seen and evaluated the patient today. Discussed with the resident and agree with the residents finding and plan as documented in the resident's note. Changes highlighted in blue font. 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 He states he is progressively become more weak and has been unable to ambulate secondary increased following. He lives with his family and they were attempting to help him ambulate yesterday when he fell to his knees and onto the floor. He endorses having had some chest pain over the past day or so, however none at the time of interview, and endorses having shortness of breath although admits that that is chronic however has been worsening. 09/25 - Patient seen and examined at bedside this morning, now up on the third floor. No acute events overnight. states he is feeling pretty well, no chest pain, no worsening shortness of breath. He continues to be on room air saturating in the high 90%s. The swelling of his legs has greatly decreased as compared to yesterday, extending only to the knee today. Will discuss with case management plan for discharge on the potential need for rehab. He has no acute complaints at this time. 09/26 - Patient seen and examined at bedside this morning. No acute events overnight. States he has no acute complaints at this time, denies any chest pain, worsening shortness of breath. He continues to saturate in the high 90% on room air. He continues to have improvement in his lower extremity edema. Yesterday he did deny the opportunity to work with physical and Occupational Th era. Discussed with him the importance of physical and Occupational Therapy completing their evaluations in order for him to go to place in rehab, which is where he desires to go upon discharge. Echocardiogram completed yesterday showed left ventricular ejection fraction of 30-35% indicating newly diagnosed HFrEF. He was initiated on Farxiga 10 mg daily, losartan 20 mg daily and Aldactone 12.5 mg daily. Cardiology was consulted. REVIEW OF SYSTEMS: Pertinent positives and negatives noted in HPI. Physical Exam: General: nontoxic, no distress, appears at stated age Derm: Abrasions throughout the body, right upper extremity, right knee, bilateral shoulders Head: atraumatic, normocephalic, symmetric Eyes: EOMI, anicteric sclera Mouth: no lip lesion, mucus membranes moist Cardiovascular: S1 S2 reg, no murmur, rubs, or gallops Lungs: Rales noted in the bilateral lower lobes Abdominal: soft, non-tender to palpataion, no appreciable organomegaly Extremities: 3+ edema in the bilateral lower extremity extending up to the knee, lower 1/3 of the thighs Neuro: Alert, Oriented, CNII-XII grossly intact, gait normal Psych: well appearing, appropriate affect Data Received Today: Labs: WBC 11.4, hemoglobin 11.4, hct 35.3, platelet 290; sodium 133, potassium 4.2, BUN 46, creatinine 1.70, calcium 8.5 Imagining: Echocardiogram showed left ventricular ejection fraction 30-35%, with mildly increased left atrial diameter, with moderate aortic stenosis Assessment and plan 73-year-old man with PMH of HFrEF (most recent echocardiogram completed in 09/25/2024 showed EF 30-35%), with a previous history of HFpEF (most recent echocardiogram completed on October 2023 which showed EF 50-55%), diabetes mellitus, hyperlipidemia, hypertension and 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 #Acutely diagnosed HFrEF (most recent echocardiogram completed in 09/25/2024 showed EF 30-35%) with history of HFpEF <1 year ago (echocardiogram 11/18/2023 showed EF 50 to 55% #NSTEMI, likely type II -Initial troponin 0.201, proBNP 44,100 -Continue with 40 mg IV Lasix every 12 hours, monitor for electrolytes, Cr -Hold amlodipine -Continue home Aspirin, Lipitor, Imdur and Metoprolol -Initiate GDMT with Farxiga 10 mg daily, losartan 25 mg daily and Aldactone 12.5 mg daily -Monitor BMP -Fluid restrict to 1500 cc -Echocardiogram read reviewed, newly diagnosed HFrEF -Strict I's and O's, daily weights -Cardiac monitoring -Cardiology consulted -HF education provided by RN #Hyperkalemia, resolved -Patient received 10 g Lokelma once in the ED -Continue to hold home potassium chloride 40 meq BID -Continue to monitor BMP -If potassium remains elevated, initiate protocol hyperkalemia intervention #Hyponatremia, likely hypervolemic -Fuid restriction of 1500 cc daily -Continue to monitor BMP #Hypomagnesemia, resolved -Given 400 mg Mag-Ox once in the ED -Resume home 400 mg Mag-Ox daily -Repeat levels tomorrow #Leukocytosis, likely reactive in addition to home prednisone -WBCs this morning 11.4 -Continue to monitor CBC -Blood culture pending #Chronic anemia secondary to CKD -hemoglobin 11.4 this morning -Not currently bleeding -Continue monitor CBC #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 please excuse any gra mmatical, word or spelling errors. Ray Nagel MD PGY-1 IM Objective - Vital Signs Vital signs: Vital Signs Temp 98.1 F 09/26/24 05:25 Pulse 78 09/26/24 05:25 Resp 20 09/26/24 05:25 BP 156/92 09/26/24 05:25 Pulse Ox 99 09/26/24 05:25 FiO2 Intake & Output 09/25/24 09/26/24 09/26/24 18:59 06:59 18:59 Intake Total 1475 Output Total 500 720 Balance 975 -720 Weight 93.9 kg Intake: Oral 1475 Output: Urine 500 720 Other: Voiding Method External Catheter External Catheter # Bowel Movements 1 - Labs CBC & Chem 7: 09/26/24 07:26 09/26/24 07:26 Labs: Abnormal Lab Results - Last 24 Hours (Table) 09/25/24 09/25/24 09/25/24 Range/Units 00:46 00:46 11:14 WBC 18.25 H (4.50-10.00) X 10*3/uL RBC 3.65 L (4.40-5.60) X 10*6/uL Hgb 10.5 L (13.0-17.0) g/dL Hct 33.2 L (39.6-50.0) % MCHC 31.6 L (32.0-37.0) g/dL RDW 15.0 H (11.5-14.5) % Immature Gran # 0.19 H (0.00-0.04) X 10*3/uL Neutrophils # 16.32 H (1.80-7.70) X 10*3/uL Lymphocytes # 0.83 L (0.90-5.00) X 10*3/uL Eosinophils # 0.02 L (0.04-0.35) X 10*3/uL POC Glucose (mg/dL) 160 H (70-110) mg/dL Hemoglobin A1c 7.1 H (<=6.0) % 09/25/24 09/25/24 09/26/24 Range/Units 16:25 19:55 05:52 WBC (4.50-10.00) X 10*3/uL RBC (4.40-5.60) X 10*6/uL Hgb (13.0-17.0) g/dL Hct (39.6-50.0) % MCHC (32.0-37.0) g/dL RDW (11.5-14.5) % Immature Gran # (0.00-0.04) X 10*3/uL Neutrophils # (1.80-7.70) X 10*3/uL Lymphocytes # (0.90-5.00) X 10*3/uL Eosinophils # (0.04-0.35) X 10*3/uL POC Glucose (mg/dL) 286 H 276 H 117 H (70-110) mg/dL Hemoglobin A1c (<=6.0) % Microbiology - Last 24 Hours (Table) 09/24/24 15:00 Blood Culture - Preliminary Blood
[2024-09-26 16:36] LABS: Glucose,Whole Blood 222 mg/dL (70-110)
[2024-09-26 19:49] LABS: Glucose,Whole Blood 270 mg/dL (70-110)
[2024-09-27 06:32] LABS: Glucose,Whole Blood 158 mg/dL (70-110)
--- NOTE | 2024-09-27 06:36 | P.CRDCN ---
History of Present Illness Consult date: 09/27/24 History of present illness: This is a 73-year-old gentleman who is known to our service from before with a past medical history significant for CAD with prior angioplasty according to previous medical records as well as recently diagnosis of cardiomyopathy based on echocardiogram was performed during this admission as well as hypertension and dyslipidemia and chronic kidney disease. The patient was admitted to the hospital with progressive bilateral lower EXTR edema and increasing shortness of breath. He also was feeling weak. No symptoms of chest pain or chest discomfort or dizziness or lightness or any feeling of heart racing or feeling or presyncope or syncope. He definitely gained weight within the last several weeks. He was found to be in severe bilateral lower extremities edema and skin changes concerning for cellulitis. During his admission he underwent a workup including EKG showing sinus tachycardia. He was hypertensive as well. Beside that NT proBNP came to be severely elevated. The creatinine is mildly abnormal he is known to have chronic kidney disease based on prior admission. During also this admission he underwent an echo which revealed cardiomyopathy with EF between 25 to 30% with moderate mitral regurgitation and moderate aortic stenosis which could be low-flow low gradient aortic stenosis. He was started on Lasix IV with improvement in the edema. The cardiomyopathy is normal. Prior echocardiogram in 2023 showed preserved LV systolic function. The physical examination is remarkable for irregular rhythm with severe crescendo decrescendo systolic murmur at the right upper sternal border associated with decrease in the intensity of S2 with diminished breathing sounds bilaterally and severe bilateral lower extremity edema and ischemic changes concerning for cellulitis Assessment Heart failure with evidence of right more than left failure Severe cardiomyopathy which is new to the patient Aortic stenosis with differential of D1 versus D2 aortic stenosis Mitral regurgitation Chronic kidney disease Evidence of myocardial injury Multiple comorbid conditions Plan Continue the current medical regimen including the current dose of Lasix IV DC losartan and start the patient on Entresto Continue SGLT2 inhibitor using Farxiga Monitor the kidney function and electrolyte Eventually a heart catheterization need to be done Follow-up with the patient Past Medical History Past Medical History: Heart Failure, Diabetes Mellitus, Hyperlipidemia, Hypertension, Renal Disease Additional Past Medical History / Comment(s): Cardiomyopathy, tumor in front of heart being monitored Last Myocardial Infarction Date:: 2022 History of Any Multi-Drug Resistant Organisms: MRSA Date of last positivie culture/infection: 04/01/24 MDRO Source:: GROIN Past Surgical History: No Surgical Hx Reported Past Anesthesia/Blood Transfusion Reactions: No Reported Reaction Additional Past Anesthesia/Blood Transfusion Reaction / Comment(s): . Past Psychological History: No Psychological Hx Reported Additional Psychological History / Comment(s): Pt resides with his significant other. He is independent. Smoking Status: Former smoker Past Alcohol Use History: Rare Additional Past Alcohol Use History / Comment(s): Pt started smoking in 1959 and is over a ppd smoker. He has been cutting down. Past Drug Use History: Marijuana Additional Drug Use History / Comment(s): Pt states he smokes 5-6 marijuana joints per day. - Past Family History Father Family Medical History: Diabetes Mellitus, Myocardial Infarction ([place]) Additional Family Medical History / Comment(s): Had leg amputation Mother History Unknown: Yes Family Medical History: No Reported History Sister(s) Family Medical History: Diabetes Mellitus Additional Family Medical History / Comment(s): 1 sister had arm amputated due to diabetes Medications and Allergies Home Medications Medication Instructions Recorded Confirmed Type Isosorbide Mononitrate ER [Imdur] 60 mg PO DAILY #30 tab.er.24h 08/17/20 09/24/24 Rx Acetaminophen Tab [Tylenol] 650 mg PO Q8H PRN 11/17/23 09/24/24 History Magnesium Oxide [Mag-Ox] 400 mg PO DAILY 11/17/23 09/24/24 History Metoprolol Tartrate [Lopressor] 50 mg PO BID-W/MEALS 11/17/23 09/24/24 History Insulin NPH Hum/Reg Insulin Hm 10 unit SQ BID 12/17/23 09/24/24 History [humuLIN 70/30 Kwikpen] predniSONE [Deltasone] 20 mg PO DAILY #30 tab 12/20/23 09/24/24 Rx mycophenolate mofetiL [Cellcept] 250 mg PO BID 04/01/24 09/24/24 History Tamsulosin [Flomax] 0.4 mg PO PC-BRKFST 30 Days #30 cap 04/03/24 09/24/24 Rx Aspirin EC [Ecotrin Low Dose] 81 mg PO DAILY 09/24/24 09/24/24 History Atorvastatin [Lipitor] 40 mg PO DAILY 09/24/24 09/24/24 History Azithromycin [Zithromax Z Pack] See Taper PO DIRECTED 09/24/24 09/24/24 History Potassium Chloride ER [K-Dur 20] 40 meq PO BID 09/24/24 09/24/24 History Torsemide [Demadex] 20 mg PO BID 09/24/24 09/24/24 History amLODIPine [Norvasc] 10 mg PO DAILY 09/24/24 09/24/24 History Allergies Allergy/AdvReac Type Severity Reaction Status Date / Time No Known Allergies Allergy Verified 09/24/24 15:50 Physical Exam Vitals: Vital Signs Temp Pulse Resp BP Pulse Ox 09/27/24 03:19 98.2 F 72 16 162/95 98 09/26/24 20:00 98 F 58 L 18 144/68 97 09/26/24 14:00 98 F 101 H 18 151/91 98 09/26/24 08:00 97.5 F L 62 19 123/86 98 Intake and Output 09/26/24 09/26/24 09/27/24 14:59 22:59 06:59 Intake Total 960 540 Output Total 1675 Balance 960 -1135 Intake: Oral 960 540 Output: Urine 1675 Other: Voiding Method External Catheter External Catheter Weight 93.5 kg Results 09/26/24 07:26 09/26/24 07:26 CBC 09/26/24 Range/Units 07:26 WBC 11.4 H (3.8-10.6) k/uL RBC 3.99 L (4.30-5.90) m/uL Hgb 11.4 L (13.0-17.5) gm/dL Hct 35.3 L (39.0-53.0) % Plt Count 290 (150-450) k/uL Comprehensive Metabolic Panel 09/26/24 Range/Units 07:26 Sodium 133 L (137-145) mmol/L Potassium 4.2 (3.5-5.1) mmol/L Chloride 100 (98-107) mmol/L Carbon Dioxide 25 (22-30) mmol/L BUN 46 H (9-20) mg/dL Creatinine 1.70 H (0.66-1.25) mg/dL Glucose 126 H (74-99) mg/dL Calcium 8.5 (8.4-10.2) mg/dL Current Medications Generic Name Dose Route Start Last Admin Trade Name Freq PRN Reason Stop Dose Admin Acetaminophen 650 mg 09/24/24 17:07 09/26/24 20:50 Acetaminophen Tab 325 Mg Tab PO 650 mg Q6HR PRN Administration Mild Pain or Fever > 100.5 Aspirin 81 mg 09/24/24 18:00 09/26/24 09:08 Aspirin 81 Mg PO 81 mg DAILY LUCIANO Administration Atorvastatin Calcium 40 mg 09/25/24 09:00 09/26/24 09:08 Atorvastatin 40 Mg Tab PO 40 mg DAILY LUCIANO Administration Dapagliflozin 10 mg 09/26/24 09:45 09/26/24 10:45 Dapagliflozin Propanediol 10 Mg Tablet PO 10 mg DAILY LUCIANO Administration Dextrose/Water 25 ml 09/24/24 18:07 Dextrose 50% Syringe 50 Ml IVP PER PROTOCOL PRN Hypoglycemia Protocol Dextrose/Water 50 ml 09/24/24 18:07 Dextrose 50% Syringe 50 Ml IVP PER PROTOCOL PRN Hypoglycemia Protocol Furosemide 40 mg 09/24/24 21:00 09/26/24 20:51 Furosemide 10 Mg/Ml 4 Ml Vial IV 40 mg BID LUCIANO Administration Heparin Sodium (Porcine) 5,000 unit 09/25/24 00:00 09/27/24 00:28 Heparin Sodium,Porcine 5,000 Unit/Ml 1 Ml Vial SQ Not Given Q8HR [facility] Insulin Human Lispro 0 unit 09/24/24 21:00 09/26/24 20:51 Insulin Lispro (Humalog) 100 Unit/Ml 10 Ml Vl SQ 6 unit ACHS LUCIANO Administration Protocol Insulin Lispro Protam/Lispro Human 10 unit 09/24/24 21:00 09/26/24 20:51 Insulin Npl/Insulin Lispro 100 Unit/Ml 10 Ml Vl (Humalog 75/25) SQ 10 unit BID LUCIANO Administration Isosorbide Mononitrate 60 mg 09/25/24 09:00 09/26/24 09:08 Isosorbide Mononitrate Er 60 Mg Tab.Er.24h PO 60 mg DAILY LUCIANO Administration Losartan Potassium 25 mg 09/26/24 09:45 09/26/24 10:45 Losartan 25 Mg Tab PO 25 mg DAILY LUCIANO Administration Magnesium Oxide 400 mg 09/25/24 09:00 09/26/24 09:08 Magnesium Oxide 400 Mg Tab PO 400 mg DAILY LUCIANO Administration Metoprolol Tartrate 50 mg 09/25/24 07:30 09/26/24 16:47 Metoprolol Tartrate 50 Mg Tab PO 50 mg BID-W/MEALS LUCIANO Administration Mycophenolate Mofetil 250 mg 09/24/24 21:00 09/26/24 20:52 Mycophenolate Mofetil 250 Mg Cap PO 250 mg BID LUCIANO Administration Naloxone HCl 0.2 mg 09/24/24 17:07 Naloxone 0.4 Mg/Ml 1 Ml Vial IV Q2M PRN Opioid Reversal Ondansetron HCl 4 mg 09/24/24 17:07 Ondansetron 4 Mg/2 Ml Vial IVP Q8HR PRN Nausea And Vomiting Pantoprazole Sodium 40 mg 09/25/24 09:00 09/26/24 09:08 Pantoprazole 40 Mg Tablet PO 40 mg DAILY LUCIANO Administration Prednisone 20 mg 09/25/24 09:00 09/26/24 09:08 Prednisone 20 Mg Tab PO 20 mg DAILY LUCIANO Administration Spironolactone 12.5 mg 09/26/24 09:45 09/26/24 10:45 Spironolactone 25 Mg Tab PO 12.5 mg DAILY LUCIANO Administration Tamsulosin HCl 0.4 mg 09/25/24 08:30 09/26/24 09:08 Tamsulosin 0.4 Mg Cap.Er.24h PO 0.4 mg PC-BRKFST LUCIANO Administration Intake and Output 09/26/24 09/26/24 09/27/24 14:59 22:59 06:59 Intake Total 960 540 Output Total 1675 Balance 960 -1135 Intake: Oral 960 540 Output: Urine 1675 Other: Voiding Method External Catheter External Catheter Weight 93.5 kg Patient Weight 09/27/24 06:59 Weight 93.5 kg 09/26/24 07:26 09/26/24 07:26
[2024-09-27] MEDS: SACUBITRIL/VALSARTAN 24 MG-26 MG TABLET PO SCH (08:32)
[2024-09-27 08:56] LABS: African American GFR (CKD) 45 (>60 ml/min/1.73 sqM); Anion Gap 7 mmol/L; Blood Urea Nitrogen 55 mg/dL (9-20); Calcium 8.2 mg/dL (8.4-10.2); Carbon Dioxide 24 mmol/L (22-30); Chloride 104 mmol/L (98-107); Glucose 138 mg/dL (74-99); Magnesium 1.7 mg/dL (1.6-2.3); Non-African American GFR(CKD) 39 (>60 ml/min/1.73 sqM); Potassium 3.9 mmol/L (3.5-5.1); Sodium 135 mmol/L (137-145)
[2024-09-27 09:22] LABS: Basophils % (A) 0 %; Eosinophils # (A) 0.1 k/uL (0-0.7); Eosinophils % (A) 1 %; HCT 34.3 % (39.0-53.0); HGB 10.8 gm/dL (13.0-17.5); Hypochromasia Slight; Lymphocytes # (A) 0.9 k/uL (1.0-4.8); Lymphocytes % (A) 8 %; MCH 28.2 pg (25.0-35.0); MCHC 31.3 g/dL (31.0-37.0); MCV 89.8 fL (80.0-100.0); Mean Platelet Volume 8.5; Monocytes # (A) 0.7 k/uL (0-1.0); Monocytes % (A) 7 %; Neutrophils % (A) 84 %; Platelet Count 294 k/uL (150-450); Poikilocytosis Slight; RBC 3.82 m/uL (4.30-5.90); RDW 15.3 % (11.5-15.5); WBC 10.7 k/uL (3.8-10.6)
[2024-09-27 11:25] LABS: Glucose,Whole Blood 161 mg/dL (70-110)
--- NOTE | 2024-09-27 12:16 | P.PN ---
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 He states he is progressively become more weak and has been unable to ambulate secondary increased following. He lives with his family and they were attempting to help him ambulate yesterday when he fell to his knees and onto the floor. He endorses having had some chest pain over the past day or so, however none at the time of interview, and endorses having shortness of breath although admits that that is chronic however has been worsening. Echocardiogram completed yesterday showed left ventricular ejection fraction of 30-35% indicating newly diagnosed HFrEF. He was initiated on Farxiga 10 mg daily, Aldactone 12.5 mg daily, Entresto . Cardiology was consulted. Patient will need eventual heart cath, to be continued on current diuresis 09/27: Denied chest pain, believes that his lower extremity edema is improving, no shortness of breath, having bowel movements REVIEW OF SYSTEMS: Pertinent positives and negatives noted in HPI. Physical Exam: General: nontoxic, no distress, appears at stated age Derm: Abrasions throughout the body, right upper extremity, right knee, bilateral shoulders Head: atraumatic, normocephalic, symmetric Eyes: EOMI, anicteric sclera Mouth: no lip lesion, mucus membranes moist Cardiovascular: S1 S2 reg, no murmur, rubs, or gallops Lungs: Rales noted in the bilateral lower lobes Abdominal: soft, non-tender to palpataion, no appreciable organomegaly Extremities: 3+ edema in the bilateral lower extremity extending up to the knee, bilateral thighs Neuro: Alert, Oriented, CNII-XII grossly intact, gait normal Psych: well appearing, appropriate affect Data Received Today: Labs: WBC 10.7, hemoglobin 10.5, normal platelet count, sodium 135, potassium 3.9, bicarb normal, creatinine 1.69, stable, blood glucose 161, magnesium 1.7 Imagining: Echocardiogram showed left ventricular ejection fraction 30-35%, with mildly increased left atrial diameter, with moderate aortic stenosis Assessment and plan 73-year-old man with PMH of HFrEF (most recent echocardiogram completed in 09/25/2024 showed EF 30-35%), with a previous history of HFpEF (most recent echocardiogram completed on October 2023 which showed EF 50-55%), diabetes mellitus, hyperlipidemia, hypertension and 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 Acutely diagnosed HFrEF (most recent echocardiogram completed in 09/25/2024 showed EF 30-35%) with history of HFpEF <1 year ago (echocardiogram 11/18/2023 showed EF 50 to 55% STEMI, likely type II -Initial troponin 0.201, proBNP 44,100 -Continue with 40 mg IV Lasix every 12 hours, monitor for electrolytes, Cr -Hold amlodipine -Continue home Aspirin, Lipitor, Imdur and Metoprolol -Initiate GDMT with Farxiga 10 mg dailyand Aldactone 12.5 mg daily, losartan was switched to Entresto , patient's blood pressure remains elevated, -Monitor BMP -Fluid restrict to 1500 cc -Echocardiogram read reviewed, newly diagnosed HFrEF -Strict I's and O's, daily weights -Cardiac monitoring -Cardiology consulted, continue current medications, losartan switched to Entresto, eventually will need heart cath -HF education provided by RN Hyperkalemia, resolved -Patient received 10 g Lokelma once in the ED -Continue to hold home potassium chloride 40 meq BID -Continue to monitor BMP -If potassium remains elevated, initiate protocol hyperkalemia intervention Hyponatremia, likely hypervolemic, improved -Fuid restriction of 1500 cc daily -Continue to monitor BMP Hypomagnesemia, resolved -Given 400 mg Mag-Ox once in the ED -Resume home 400 mg Mag-Ox daily Leukocytosis, likely reactive in addition to home prednisone -WBC count trending down, stable -Continue to monitor CBC -Blood culture pending, preliminary negative Chronic anemia secondary to CKD -Hemoglobin stable -Not currently bleeding -Continue monitor CBC 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 please excuse any grammatical, word or spelling errors. Objective - Vital Signs Vital signs: Vital Signs Temp 97.5 F L 09/27/24 08:29 Pulse 60 09/27/24 08:29 Resp 16 09/27/24 03:19 BP 143/81 09/27/24 08:29 Pulse Ox 100 09/27/24 08:29 FiO2 Intake & Output 09/26/24 09/27/24 09/27/24 18:59 06:59 18:59 Intake Total 1500 480 600 Output Total 1675 1200 400 Balance -175 -720 200 Weight 93.5 kg Intake: Oral 1500 480 600 Output: Urine 1675 1200 400 Other: Voiding Method External Catheter External Catheter External Catheter # Bowel Movements 1 - Labs CBC & Chem 7: 09/27/24 08:17 09/27/24 08:17 Labs: Abnormal Lab Results - Last 24 Hours (Table) 09/26/24 09/26/24 09/27/24 Range/Units 16:33 19:45 06:28 WBC (3.8-10.6) k/uL RBC (4.30-5.90) m/uL Hgb (13.0-17.5) gm/dL Hct (39.0-53.0) % Neutrophils # (1.3-7.7) k/uL Lymphocytes # (1.0-4.8) k/uL Sodium (137-145) mmol/L BUN (9-20) mg/dL Creatinine (0.66-1.25) mg/dL Glucose (74-99) mg/dL POC Glucose (mg/dL) 222 H 270 H 158 H (70-110) mg/dL Calcium (8.4-10.2) mg/dL 09/27/24 09/27/24 09/27/24 Range/Units 08:17 08:17 11:24 WBC 10.7 H (3.8-10.6) k/uL RBC 3.82 L (4.30-5.90) m/uL Hgb 10.8 L (13.0-17.5) gm/dL Hct 34.3 L (39.0-53.0) % Neutrophils # 9.0 H (1.3-7.7) k/uL Lymphocytes # 0.9 L (1.0-4.8) k/uL Sodium 135 L (137-145) mmol/L BUN 55 H (9-20) mg/dL Creatinine 1.69 H (0.66-1.25) mg/dL Glucose 138 H (74-99) mg/dL POC Glucose (mg/dL) 161 H (70-110) mg/dL Calcium 8.2 L (8.4-10.2) mg/dL Microbiology - Last 24 Hours (Table) 09/24/24 15:00 Blood Culture - Preliminary Blood
[2024-09-27 16:56] LABS: Glucose,Whole Blood 313 mg/dL (70-110)
[2024-09-27 20:59] LABS: Glucose,Whole Blood 298 mg/dL (70-110)
[2024-09-28] MEDS ORDERED: ZINC OXIDE PASTE (Z-GUARD) 1 APPLIC TOPICAL PRN (05:30)
[2024-09-28 06:16] LABS: Glucose,Whole Blood 242 mg/dL (70-110)
[2024-09-28 09:19] LABS: BUN/Creat Ratio 27.58 Ratio (12.00-20.00); Blood Urea Nitrogen 52.4 mg/dL (9.0-27.0); Calcium 8.3 mg/dL (8.7-10.3); Chloride 105 mmol/L (96-109); Glucose 147 mg/dL (70-110); Potassium 4.3 mmol/L (3.5-5.5); Sodium 142 mmol/L (135-145)
[2024-09-28 09:50] LABS: Basophils # (A) 0.05 X 10*3/uL (0.00-0.10); Basophils % (A) 0.4 %; Eosinophils # (A) 0.02 X 10*3/uL (0.04-0.35); Eosinophils % (A) 0.2 %; HCT 36.5 % (39.6-50.0); HGB 11.3 g/dL (13.0-17.0); Lymphocytes # (A) 0.96 X 10*3/uL (0.90-5.00); Lymphocytes % (A) 8.1 %; MCH 28.5 pg (27.0-32.0); MCV 91.9 FL (80.0-97.0); Mean Platelet Volume 10.9 FL (9.5-12.2); Monocytes # (A) 0.88 X 10*3/uL (0.20-1.00); Monocytes % (A) 7.4 %; NRBC Per 100 WBC 0 X 10*3/uL (0.00-0.01); Neutrophils # (A) 9.55 X 10*3/uL (1.80-7.70); Neutrophils % (A) 80.6 %; Platelet Count 365 X 10*3/uL (140-440); RBC 3.97 X 10*6/uL (4.40-5.60); RDW 14.8 % (11.5-14.5); WBC 11.85 X 10*3/uL (4.50-10.00)
[2024-09-28 10:34] LABS: Glucose,Whole Blood 189 mg/dL (70-110)
[2024-09-28] MEDS: HYDROcodone/APAP 5-325MG 1 EACH TAB PO PRN (11:53)
[2024-09-28] MEDS: TORSEMIDE 20 MG TAB PO SCH (16:09)
[2024-09-28 16:48] LABS: Glucose,Whole Blood 280 mg/dL (70-110)
--- NOTE | 2024-09-28 17:50 | P.PN ---
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 He states he is progressively become more weak and has been unable to ambulate secondary increased following. He lives with his family and they were attempting to help him ambulate yesterday when he fell to his knees and onto the floor. He endorses having had some chest pain over the past day or so, however none at the time of interview, and endorses having shortness of breath although admits that that is chronic however has been worsening. 09/25 - Patient seen and examined at bedside this morning, now up on the third floor. No acute events overnight. states he is feeling pretty well, no chest pain, no worsening shortness of breath. He continues to be on room air saturating in the high 90%s. The swelling of his legs has greatly decreased as compared to yesterday, extending only to the knee today. Will discuss with case management plan for discharge on the potential need for rehab. He has no acute complaints at this time. 09/26 - Patient seen and examined at bedside this morning. No acute events overnight. States he has no acute complaints at this time, denies any chest pain, worsening shortness of breath. He continues to saturate in the high 90% on room air. He continues to have improvement in his lower extremity edema. Yesterday he did deny the opportunity to work with physical and Occupational Therapy. Discussed with him the importance of physical and Occupational Therapy completing their evaluations in order for him to go to place in rehab, which is where he desires to go upon discharge. Echocardiogram completed yesterday showed left ventricular ejection fraction of 30-35% indicating newly diagnosed HFrEF. He was initiated on Farxiga 10 mg daily, losartan 20 mg daily and Aldactone 12.5 mg daily. Cardiology was consulted. 09/27 - Denied chest pain, believes that his lower extremity edema is improving, no shortness of breath, having bowel movements 3/31 - He is seen and examined at bedside this morning. Continues to deny chest pain, denies shortness of breath. He states he is feeling better today, noting that he feels as though the lower extremity edema has continued to improve. A dditionally, today he did work with physical therapy. Discussion was had with the patient's who requested possibility of a subacute rehab location closer to the family home. He has no acute complaints at this time. REVIEW OF SYSTEMS: Pertinent positives and negatives noted in HPI. Physical Exam: General: nontoxic, no distress, appears at stated age Derm: Abrasions throughout the body, right upper extremity, right knee, bilateral shoulders Head: atraumatic, normocephalic, symmetric Eyes: EOMI, anicteric sclera Mouth: no lip lesion, mucus membranes moist Cardiovascular: S1 S2 reg, no murmur, rubs, or gallops Lungs: Rales noted in the bilateral lower lobes Abdominal: soft, non-tender to palpataion, no appreciable organomegaly Extremities: 3+ edema in the bilateral lower extremity extending up to the knee Neuro: Alert, Oriented, CNII-XII grossly intact, gait normal Psych: well appearing, appropriate affect Data Received Today: Labs: WBC 11.4, hemoglobin 11.4, hct 35.3, platelet 290; sodium 133, potassium 4.2, BUN 46, creatinine 1.70, calcium 8.5 Imagining: Echocardiogram showed left ventricular ejection fraction 30-35%, with mildly increased left atrial diameter, with moderate aortic stenosis Assessment and plan 73-year-old man with PMH of HFrEF (most recent echocardiogram completed in 09/25/2024 showed EF 30-35%), with a previous history of HFpEF (most recent echocardiogram completed on October 2023 which showed EF 50-55%), diabetes mellitus, hyperlipidemia, hypertension and 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 #Acutely diagnosed HFrEF (most recent echocardiogram completed in 09/25/2024 showed EF 30-35%) with history of HFpEF <1 year ago (echocardiogram 11/18/2023 showed EF 50 to 55% #NSTEMI, likely type II -Initial troponin 0.201, proBNP 44,100 -IV Lasix changed to oral torsemide 40 twice daily -Hold amlodipine -Continue home Aspirin, Lipitor, Imdur and Metoprolol -Initiate GDMT with Farxiga 10 mg daily, losartan 25 mg daily and Aldactone 12.5 mg daily -Monitor BMP -Fluid restrict to 1500 cc -Echocardiogram read reviewed, newly diagnosed HFrEF -Strict I's and O's, daily weights -Cardiac monitoring -Cardiology consulted #Hyperkalemia, resolved -Patient received 10 g Lokelma once in the ED -Continue to hold home potassium chloride 40 meq BID -Continue to monitor BMP -If potassium remains elevated, initiate protocol hyperkalemia intervention #Hyponatremia, likely hypervolemic -Fuid restriction of 1500 cc daily -Continue to monitor BMP #Hypomagnesemia, resolved -Given 400 mg Mag-Ox once in the ED -Resume home 400 mg Mag-Ox daily -Repeat levels tomorrow #Leukocytosis, likely reactive in addition to home prednisone -WBCs this morning 11.4 -Continue to monitor CBC -Blood culture pending #Chronic anemia secondary to CKD -hemoglobin 11.4 this morning -Not currently bleeding -Continue monitor CBC #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 please excuse any grammatical, word or spelling errors. Ray Nagel MD PGY-1 IM I have seen and evaluated the patient today. Discussed with the resident and agree with the residents finding and plan as documented in the resident's note. Changes highlighted in blue font. Objective - Vital Signs Vital signs: Vital Signs Temp 97.5 F L 09/28/24 07:22 Pulse 60 09/28/24 14:00 Resp 18 09/28/24 14:00 BP 156/75 09/28/24 14:00 Pulse Ox 94 L 09/28/24 14:00 FiO2 Intake & Output 09/27/24 09/28/24 09/28/24 18:59 06:59 18:59 Intake Total 600 1267 Output Total 1250 1100 Balance -650 167 Weight 45 kg 81.647 kg Intake: Oral 600 1267 Output: Urine 1250 1100 Other: Voiding Method External Catheter External Catheter External Catheter # Bowel Movements 1 - Labs CBC & Chem 7: 09/28/24 02:38 09/28/24 02:38 Labs: Abnormal Lab Results - Last 24 Hours (Table) 09/27/24 09/28/24 09/28/24 Range/Units 20:58 02:38 02:38 WBC 11.85 H (4.50-10.00) X 10*3/uL RBC 3.97 L (4.40-5.60) X 10*6/uL Hgb 11.3 L (13.0-17.0) g/dL Hct 36.5 L (39.6-50.0) % MCHC 31.0 L (32.0-37.0) g/dL RDW 14.8 H (11.5-14.5) % Immature Gran # 0.39 H (0.00-0.04) X 10*3/uL Neutrophils # 9.55 H (1.80-7.70) X 10*3/uL Eosinophils # 0.02 L (0.04-0.35) X 10*3/uL BUN 52.4 H (9.0-27.0) mg/dL Creatinine 1.9 H (0.6-1.5) mg/dL Est GFR (CKD-EPI) 37 L (>=60) BUN/Creatinine Ratio 27.58 H (12.00-20.00) Ratio Glucose 147 H (70-110) mg/dL POC Glucose (mg/dL) 298 H (70-110) mg/dL Calcium 8.3 L (8.7-10.3) mg/dL 09/28/24 09/28/24 09/28/24 Range/Units 06:15 10:33 16:47 WBC (4.50-10.00) X 10*3/uL RBC (4.40-5.60) X 10*6/uL Hgb (13.0-17.0) g/dL Hct (39.6-50.0) % MCHC (32.0-37.0) g/dL RDW (11.5-14.5) % Immature Gran # (0.00-0.04) X 10*3/uL Neutrophils # (1.80-7.70) X 10*3/uL Eosinophils # (0.04-0.35) X 10*3/uL BUN (9.0-27.0) mg/dL Creatinine (0.6-1.5) mg/dL Est GFR (CKD-EPI) (>=60) BUN/Creatinine Ratio (12.00-20.00) Ratio Glucose (70-110) mg/dL POC Glucose (mg/dL) 242 H 189 H 280 H (70-110) mg/dL Calcium (8.7-10.3) mg/dL Microbiology - Last 24 Hours (Table) 09/24/24 15:00 Blood Culture - Preliminary Blood
[2024-09-28 20:50] LABS: Glucose,Whole Blood 189 mg/dL (70-110)
[2024-09-29 04:13] LABS: Basophils % (A) 0 %; Eosinophils # (A) 0.1 k/uL (0-0.7); Eosinophils % (A) 0 %; HCT 38.1 % (39.0-53.0); HGB 12.1 gm/dL (13.0-17.5); Hypochromasia Moderate; Lymphocytes # (A) 1.5 k/uL (1.0-4.8); Lymphocytes % (A) 11 %; MCH 28.4 pg (25.0-35.0); MCHC 31.8 g/dL (31.0-37.0); MCV 89.2 fL (80.0-100.0); Mean Platelet Volume 7.9; Monocytes # (A) 0.9 k/uL (0-1.0); Monocytes % (A) 6 %; Neutrophils # (A) 11.7 k/uL (1.3-7.7); Neutrophils % (A) 82 %; Platelet Count 368 k/uL (150-450); RBC 4.28 m/uL (4.30-5.90); RDW 15.2 % (11.5-15.5); WBC 14.3 k/uL (3.8-10.6)
[2024-09-29 04:32] LABS: African American GFR (CKD) 37 (>60 ml/min/1.73 sqM); Anion Gap 8 mmol/L; Blood Urea Nitrogen 65 mg/dL (9-20); Calcium 8.8 mg/dL (8.4-10.2); Carbon Dioxide 28 mmol/L (22-30); Chloride 103 mmol/L (98-107); Glucose 124 mg/dL (74-99); Magnesium 1.9 mg/dL (1.6-2.3); Non-African American GFR(CKD) 32 (>60 ml/min/1.73 sqM); Potassium 4.4 mmol/L (3.5-5.1); Sodium 139 mmol/L (137-145)
[2024-09-29 06:23] LABS: Glucose,Whole Blood 136 mg/dL (70-110)
[2024-09-29 08:59] VITALS: PULSE 63; RESP 18
--- NOTE | 2024-09-29 11:04 | P.DS ---
Providers Date of admission: 09/24/24 17:59 Expected date of discharge: 09/29/24 Attending physician: Rohit Pena Consults: 09/26/24 09:37 Consult Physician Routine Consulting Provider: Royer Hillman Consult Reason/Comments: newly diagnosed HFrEF Do you want consulting provider notified?: Yes Primary care physician: Jim T[facility] Course: Discharge diagnoses; #Acutely diagnosed HFrEF (most recent echocardiogram completed in 09/25/2024 showed EF 30-35%) with history of HFpEF <1 year ago (echocardiogram 11/18/2023 showed EF 50 to 55%) #NSTEMI, likely type II #Hyperkalemia, resolved #Hyponatremia, hypervolemic, resolved #Hypomagnesemia, resolved #Leukocytosis, likely reactive in addition to home prednisone #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 He states he is progressively become more weak and has been unable to ambulate. At no point during his stay today endorse any chest pain or worsening shortness of breath. He continued to saturate in the high 90%'s on room air. He was placed on a fluid restriction and initiated on IV Lasix. Attempted to get additional fluid, as the swelling extended from his feet up to his lower torso. After his first day in the hospital the edema extended only up to his knees bilaterally. During his stay he underwent a V/Q scan because of his elevated D-dimer which showed no mismatch defects. He also underwent an echocardiogram which showed an ejection fraction of 30-35%, with evidence of moderate aortic stenosis and moderate mitral regurgitation. This was a new diagnosis of heart failure with reduced ejection fraction. At that time he was initiated on guideline directed medical therapy with 3 new medications, all of which she will be discharged with. He was also seen and evaluated by cardiology during his stay. Patient will likely need further ischemic evaluation outpatient. His creatinine did uptrend slightly, likely in the setting of Entresto. He will need follow-up with nephrology as well. He is excited for the prospect of being discharged to subacute rehab to further strengthen, and give him the ability to functionally move around without difficulties. Physical Exam: General: nontoxic, no distress, appears at stated age Derm: Healing abrasions throughout the body, right upper extremity, right knee, bilateral shoulders; multiple bandages wrapped around the lower extremities Head: atraumatic, normocephalic, symmetric Eyes: EOMI, anicteric sclera Mouth: no lip lesion, mucus membranes moist Cardiovascular: S1 S2 reg, no murmur, rubs, or gallops Lungs: Rales noted in the bilateral lower lobes Abdominal: soft, non-tender to palpataion, no appreciable organomegaly Extremities: 3+ edema in the bilateral lower extremity extending up to mid maldonado Neuro: Alert, Oriented, CNII-XII grossly intact, gait normal Psych: well appearing, appropriate affect Dictation was produced using [employer] dictation software. please excuse any grammatical, word or spelling errors. Ray Nagel MD PGY-1 IM A total of 38 minutes of time were spent preparing this complex discharge summary. Patient was discharged on 09/29/24 at 908. I have seen and evaluated the patient today. Discussed with the resident and agree with the residents finding and plan as documented in the resident's note. Changes highlighted in blue font. Plan - Discharge Summary Discharge Rx Participant: No New Discharge Prescriptions: New Spironolactone [Aldactone] 12.5 mg PO DAILY tab Torsemide [Demadex] 40 mg PO BID@0900,1600 tab Sacubitril/Valsartan [Entresto 24 mg-26 mg Tablet] 1 each PO BID tab Dapagliflozin Propanediol [Farxiga] 10 mg PO DAILY tab Pantoprazole [Protonix] 40 mg PO DAILY tab Continue Isosorbide Mononitrate ER [Imdur] 60 mg PO DAILY #30 tab.er.24h Metoprolol Tartrate [Lopressor] 50 mg PO BID-W/MEALS Magnesium Oxide [Mag-Ox] 400 mg PO DAILY Acetaminophen Tab [Tylenol] 650 mg PO Q8H PRN PRN Reason: Pain Aspirin EC [Ecotrin Low Dose] 81 mg PO DAILY Insulin NPH Hum/Reg Insulin Hm [humuLIN 70/30 Kwikpen] 10 unit SQ BID predniSONE [Deltasone] 20 mg PO DAILY #30 tab mycophenolate mofetiL [Cellcept] 250 mg PO BID Tamsulosin [Flomax] 0.4 mg PO PC-BRKFST 30 Days #30 cap Atorvastatin [Lipitor] 40 mg PO DAILY Discontinued Torsemide [Demadex] 20 mg PO BID Potassium Chloride ER [K-Dur 20] 40 meq PO BID Azithromycin [Zithromax Z Pack] See Taper PO DIRECTED amLODIPine [Norvasc] 10 mg PO DAILY Discharge Medication List Isosorbide Mononitrate ER [Imdur] 60 mg PO DAILY #30 tab.er.24h 08/17/20 [Rx] Acetaminophen Tab [Tylenol] 650 mg PO Q8H PRN 11/17/23 [History] Magnesium Oxide [Mag-Ox] 400 mg PO DAILY 11/17/23 [History] Metoprolol Tartrate [Lopressor] 50 mg PO BID-W/MEALS 11/17/23 [History] Insulin NPH Hum/Reg Insulin Hm [humuLIN 70/30 Kwikpen] 10 unit SQ BID 12/17/23 [History] predniSONE [Deltasone] 20 mg PO DAILY #30 tab 12/20/23 [Rx] mycophenolate mofetiL [Cellcept] 250 mg PO BID 04/01/24 [History] Tamsulosin [Flomax] 0.4 mg PO PC-BRKFST 30 Days #30 cap 04/03/24 [Rx] Aspirin EC [Ecotrin Low Dose] 81 mg PO DAILY 09/24/24 [History] Atorvastatin [Lipitor] 40 mg PO DAILY 09/24/24 [History] Dapagliflozin Propanediol [Farxiga] 10 mg PO DAILY tab 09/29/24 [Rx] Pantoprazole [Protonix] 40 mg PO DAILY tab 09/29/24 [Rx] Sacubitril/Valsartan [Entresto 24 mg-26 mg Tablet] 1 each PO BID tab 09/29/24 [Rx] Spironolactone [Aldactone] 12.5 mg PO DAILY tab 09/29/24 [Rx] Torsemide [Demadex] 40 mg PO BID@0900,1600 tab 09/29/24 [Rx] Follow up Appointment(s)/Referral(s): Royer Hillman MD [STAFF PHYSICIAN] - 10/07/24 8:15 am (With Dr. Haddad) Jim Anderson MD [Primary Care Provider] - 1-2 days (ECF please call for follow-up appointment.) Carmita Pérez, [NON-STAFF] - As Needed Macho Claudio DO [STAFF PHYSICIAN] - 11/20/24 2:00 pm (With ) Patient Instructions/Handouts: Heart Failure (GEN) Activity/Diet/Wound Care/Special Instructions: Please follow up with Nephrology and Cardiology within 1-2 weeks of discharge for close follow up. Please have a BMP completed in 2-3 days following discharge. Activity: As tolerated. Take breaks as needed. Diet: Heart healthy and carb consistent diet. Avoid salts, or foods with hidden salts such as canned or boxed foods and frozen dinners. Extra salt makes your heart work harder and traps the fluid in your body for longer. Special Instructions: Weigh yourself every morning after you urinate. If you gain 3 pounds overnight or more than 5 pounds in one week, call your primary physician and electric car operator for guidance on your medications or they may want to see you in their office. Keep a daily log of your weights and be sure to bring with you at follow up visits with your PCP and electric car operator. Take all of your medications as directed, especially your water pills. NEVER skip a dose. And remember to keep all of your doctor's appointments and follow- up as needed. Elevate your legs when you are not up moving around to help with circulation and prevent swelling. Compression stockings are also a great way to improve lower extremity circulation and prevent/improve lower extremity edema. Call your primary care provider and electric car operator if you notice any extra swelling in your legs, ankles, feet or abdomen, if you have a new dry cough, if your shortness of breath worsens with activity or at rest, or if you feel more fatigued. Thank you for allowing us to participate in your care, it was truly a pleasure having you for our patient!!! Discharge Disposition: TRANSFER TO SNF/ECF
[2024-09-29 12:03] LABS: Glucose,Whole Blood 231 mg/dL (70-110)
[2024-09-29 16:33] VITALS: BP 129/76; TEMP 97.8
[2024-09-29 16:59] LABS: Glucose,Whole Blood 285 mg/dL (70-110)
== END 2024-09-29 20:52 | DRG 280 ==
LOC: EC 11:48 → 4SSUR 17:59 → 3SCARD 21:34 → 4SSUR 09-27 11:29
PROVIDERS: ADMIT Student in an Organized Health Care Education/Training Program; ATTEND Student in an Organized Health Care Education/Training Program
DX: I13.0 Hypertensive heart and chronic kidney disease with heart failure and stage 1 through stage 4 chronic kidney disease, or unspecified chronic kidney disease (principal); I50.23 Acute on chronic systolic (congestive) heart failure; I21.A1 Myocardial infarction type 2; E87.1 Hypo-osmolality and hyponatremia; D63.1 Anemia in chronic kidney disease; D72.829 Elevated white blood cell count, unspecified; E11.22 Type 2 diabetes mellitus with diabetic chronic kidney disease; N18.32 Chronic kidney disease, stage 3b; I08.0 Rheumatic disorders of both mitral and aortic valves; E11.649 Type 2 diabetes mellitus with hypoglycemia without coma; Z79.4 Long term (current) use of insulin; I42.9 Cardiomyopathy, unspecified; I11.0 Hypertensive heart disease with heart failure; E87.5 Hyperkalemia; E83.42 Hypomagnesemia; Z79.899 Other long term (current) drug therapy; E78.5 Hyperlipidemia, unspecified; I25.10 Atherosclerotic heart disease of native coronary artery without angina pectoris; I25.2 Old myocardial infarction; W19.XXXA Unspecified fall, initial encounter; Z79.624 Long term (current) use of inhibitors of nucleotide synthesis; Z79.82 Long term (current) use of aspirin; Z82.49 Family history of ischemic heart disease and other diseases of the circulatory system; Z87.891 Personal history of nicotine dependence
CPT/HCPCS: 36415; 71046; 78582; 80048; 80053; 81001; 83036; 83605; 83735; 83880; 84484; 85025; 85379; 85610; 85730; 87040; 93005; 93306; 96365; 96367; 96368; 96375; 96376; 99285

== ENCOUNTER 2024-12-07 00:23 | Inpatient (IN) | payer MEDICARE ==
[2024-12-07] MEDS ORDERED: VANCOMYCIN IV PER PHARMACY 1 EACH MISC MISCELLANE PRN (00:56)
--- NOTE | 2024-12-07 01:40 | ED ---
General Adult HPI - General Chief complaint: Weakness Stated complaint: weakness Time Seen by Provider: 12/07/24 00:32 Source: EMS Mode of arrival: EMS - History of Present Illness Initial comments: Patient is a 74-year-old male past medical history of diabetes presenting today for generalized weakness, abdominal pain and RLE swelling. Pt states abdominal pain has been ongoing for ~2 days. He endorses associated loose stools and nonbloody nonbilious emesis. Abdominal pain is in the lower abdomen is sharp in nature. Also notes right lower extremity redness and swelling over the last 2 days. Denies fevers, no medications prior to arrival. Denies chest pain or shortness of breath. Denies melena or hematochezia. Emesis is nonbloody nonbilious. Patient states that he had surgery on his right testicle in March, otherwise denies additional abdominal surgeries. Denies dysuria, urinary frequency or hematuria. - Related Data Home Medications Medication Instructions Recorded Confirmed Acetaminophen Tab [Tylenol] 650 mg PO Q8H PRN 11/17/23 12/07/24 Magnesium Oxide [Mag-Ox] 400 mg PO DAILY 11/17/23 12/07/24 Metoprolol Tartrate [Lopressor] 50 mg PO BID-W/MEALS 11/17/23 12/07/24 Insulin NPH Hum/Reg Insulin Hm 10 unit SQ BID 12/17/23 12/07/24 [humuLIN 70/30 Kwikpen] mycophenolate mofetiL [Cellcept] 250 mg PO BID 04/01/24 12/07/24 Aspirin EC [Ecotrin Low Dose] 81 mg PO DAILY 09/24/24 12/07/24 Atorvastatin [Lipitor] 40 mg PO DAILY 09/24/24 12/07/24 Isosorbide Mononitrate ER [Imdur] 30 mg PO DAILY 12/07/24 12/07/24 SILVER sulfADIAZINE Cream 1 applic TOPICAL BID 12/07/24 12/07/24 [Silvadene 1% Cream] Torsemide [Demadex] 20 mg PO BID-W/MEALS 12/07/24 12/07/24 Previous Rx's Medication Instructions Recorded predniSONE [Deltasone] 20 mg PO DAILY #30 tab 12/20/23 Allergies Allergy/AdvReac Type Severity Reaction Status Date / Time No Known Allergies Allergy Verified 12/07/24 08:12 Review of Systems ROS Statement: Those systems with pertinent positive or pertinent negative responses have been documented in the HPI. ROS Other: All systems not noted in ROS Statement are negative. Past Medical History Past Medical History: Heart Failure, Diabetes Mellitus, Hyperlipidemia, Hypertension, Renal Disease Additional Past Medical History / Comment(s): Cardiomyopathy, tumor in front of heart being monitored Last Myocardial Infarction Date:: 2022 History of Any Multi-Drug Resistant Organisms: MRSA Date of last positivie culture/infection: 04/01/24 MDRO Source:: GROIN Past Surgical History: No Surgical Hx Reported Past Anesthesia/Blood Transfusion Reactions: No Reported Reaction Additional Past Anesthesia/Blood Transfusion Reaction / Comment(s): . Past Psychological History: No Psychological Hx Reported Smoking Status: Former smoker Past Alcohol Use History: Rare Past Drug Use History: Marijuana - Past Family History Father Family Medical History: Diabetes Mellitus, Myocardial Infarction ([place]) Additional Family Medical History / Comment(s): Had leg amputation Mother History Unknown: Yes Family Medical History: No Reported History Sister(s) Family Medical History: Diabetes Mellitus Additional Family Medical History / Comment(s): 1 sister had arm amputated due to diabetes General Exam - General Exam Comments Initial Comments: PE: CONSTITUTIONAL: Ill appearing, uncomfortable SKIN: Warm, dry, no jaundice, erythema extending up the right lower extremity, bullae present EYES: Pupils are equally round, extraocular movements intact without nystagmus, clear conjunctiva, non-icteric sclera HENT: Normocephalic, atraumatic, dry mucus membranes, oropharynx clear without exudates NECK: , Full range of motion, normal appearance PULMONARY: Clear to auscultation without wheezes, rhonchi, or rales, normal excursion, no accessory muscle use and no stridor CARDIOVASCULAR: Regular rate, rhythm, normal S1 and S2. No appreciated murmurs, rubs or gallops. Strong radial pulses with intact distal perfusion. RLE edema 2- 3+ GASTROINTESTINAL: Soft, active bowel sounds throughout, suprapubic tenderness to palpation, mildly distended, no palpable masses, guarding palpation of suprapubic region. No hepatosplenomegaly GENITOURINARY: exam performed with GENESIS Cruz at bedside, showed no hernias, lesions or erythema MUSCULOSKELETAL: Extremities have no gross deformity, RLE is erythematous and edematous, bullae present, superficial wound medial left calf,DP pulse audible with doppler, 2-3s cap refill NEUROLOGIC:_a/o x 3, GCS 15, normal mentation and speech. Moves all extremities x 4 without motor or sensory deficit, with exception of difficulty moving RLE 2 /2 pain PSYCHIATRIC:_normal mood and affect, thought process is clear and linear Course Vital Signs 12/07/24 12/07/24 12/07/24 00:27 03:17 04:15 Temperature 99.0 F 98.4 F Pulse Rate 123 H 109 H 115 H Respiratory 18 24 Rate Blood Pressure 107/54 123/82 137/94 O2 Sat by Pulse 98 97 Oximetry 12/07/24 12/07/24 12/07/24 05:00 06:00 07:12 Temperature 97.8 F 98.3 F Pulse Rate 109 H 98 102 H Respiratory 20 22 22 Rate Blood Pressure 113/68 126/85 115/92 O2 Sat by Pulse 97 98 98 Oximetry 12/07/24 12/07/24 12/07/24 10:00 13:38 15:46 Temperature Pulse Rate 98 112 H 92 Respiratory 18 18 18 Rate Blood Pressure 103/68 124/82 119/88 O2 Sat by Pulse 98 100 99 Oximetry 12/07/24 12/07/24 18:00 20:47 Temperature 98.2 F Pulse Rate 98 83 Respiratory 18 16 Rate Blood Pressure 124/81 99/77 O2 Sat by Pulse 100 98 Oximetry EKG Findings - EKG Comments: EKG Findings:: Sinus tachycardia, rate 116 bpm, intervals within acceptable limits, no ST elevations or depressions, no arrhythmia Medical Decision Making - Medical Decision Making Was pt. sent in by a medical professional or institution (, PA, DAY SPA MANAGER, urgent care, hospital, or [facility]...) When possible be specific @ -No Did you speak to anyone other than the patient for history (EMS, parent, family, police, friend...)? What history was obtained from this source @ -No Did you review nursing and triage notes (agree or disagree)? Why? @ -I reviewed nursing and triage notes Were old charts reviewed (outside hosp., previous admission, EMS record, old EKG, old radiological studies, urgent care reports/EKG's, [facility] records)? Report findings @ -Medical records reviewed- On medical record review, patient was admitted to this hospital 03/31/2024 scrotal ultrasound at that time showed no suspicious findings CT abdomen pelvis did show stranding within the right inguinal region Doppler of the right lower extremity showed no conclusive evidence of a DVT at that time, on review of ultrasound report, additionally reviewed H&P by Dr. Valerio, general surgery, he did note that patient was at high risk for developing necrotizing fasciitis so was taken to the OR Differential Diagnosis (chest pain, altered mental status, abdominal pain women, abdominal pain men, vaginal bleeding, weakness, fever, dyspnea, syncope, headache, dizziness, GI bleed, back pain, seizure, CVA, palpatations, mental health, musculoskeletal)? Differential Weakness: Hypoglycemia, shock, sepsis, hyponatremia, anemia, infection, [place], ETOH, adverse medicine reaction, overdose, stroke, this is not meant to be an all-inclusive list. Differential Abdominal Pain Men: Appendicitis, cholecystitis, diverticulosis, ischemic bowel, pancreatitis, hepatitis, UTI, gastroenteritis, AAA, incarcerated hernia, bowel obstruction, constipation, inflammatory bowel, hepatitis, peptic ulcer disease, splenic i nfarction, perforated viscus, testicular torsion, this is not meant to be an all-inclusive list EKG interpreted by me (3pts min.). @ -As above X-rays interpreted by me (1pt min.). @ -None done CT interpreted by me (1pt min.). Personally reviewed CT abdomen/pelvis as well as CT RLE, I see no free air/gas formation to indicate necrotizing soft tissue infection U/S interpreted by me (1pt. min.). @+ for DVT agree with radiologist interpretation What testing was considered but not performed or refused? (CT, X-rays, U/S, labs)? Why? @ CT ab/pelvis w/ contrast and CT RLE with contrast considered however due to poor kidney function, potential risk of contrast induced VANIA outweighted potential benefit What meds were considered but not given or refused? Why? @ -None Did you discuss the management of the patient with other professionals (professionals i.e. , PA, DAY SPA MANAGER, lab, RT, psych nurse, social service liaison, drawing in hand, teacher, chief wellness officer, pillowcase cleaner)? Give summary @ -Yes, case was briefly discussed with Dr. Tovar, general surgery, out of initial concern for potential early necrotizing soft tissue infection however rec'd labs and imaging and call back. Imaging ultimately showed DVT of RLE, no gas formation in soft tissue,, suspect findings on RLE more likely to cellulitis + DVT, this was discussed again with Dr. Tovar after completion of workup, rec'd treatment of cellulitis and DVT, appreciate recs Was smoking cessation discussed for >3mins.? @ -No Was critical care preformed (if so, how long)? Yes 45 minutes Were there social determinants of health that impacted care today? How? (Homelessness, low income, unemployed, alcoholism, drug addiction, transportation, low edu. Level, literacy, decrease access to med. care, long term, rehab)? @ -No Was there de-escalation of care discussed even if they declined (Discuss DNR or withdrawal of care, Hospice)? @ -No What co-morbidities impacted this encounter? (DM, HTN, Smoking, COPD, CAD, Cancer, CVA, ARF, Chemo, Hep., AIDS, mental health diagnosis, sleep apnea, morbid obesity)? @Diabetes Was patient admitted / discharged? Hospital course, mention meds given and route, prescriptions, significant lab abnormalities, going to OR and other pertinent info. @Admission- This is a 74-year-old gentleman history of diabetes presenting today for abdominal pain, nausea vomiting generalized weakness and right lower extremity swelling.On arrival to the ER, patient has normal temp of 99 degrees, pulse 123, blood pressure 107/54, respiratory rate of 18 pulse ox 98% on room air. He is ill-appearing with dry mucous membranes. Of note he is erythema extending up the right lower extremity with bullae present, without crepitus, was able to obtain a Doppler dorsalis pedis pulse in the distal right lower extremity, right extremities also edematous. Abdomen is distended, with hyperactive bowel sounds tender in the suprapubic region and LLQ. Differential diagnosis as above. I do have concern for potential necrotizing soft tissue infection given exam and pt's history so will reach out to general surgery. Plan for IV fluids, abx (zosyn, vanc, clinda), pain control, CBC, CRP, lactic, blood cultures, CMP, CT ab/pelvis, US RLE for DVT, CT RLE to assess for gas formation. Labs significant for white blood cell count 17.65, sodium 127, potassium 5.3, GFR 20, VANIA with creatinine 2.94, lactic 2.4, troponin 0.085, CRP 40.3. Ultrasound showed right lower extremity DVT. CT right lower extremity and abdomen pelvis did not show acute process or free air to indicate necrotizing fasciitis. Ordered heparin gtt, updated pt to findings of DVT. He remained painful however MM appear more moist and he is less ill appearing. Additional pain control ordered. Case discussed with general surgery, Dr. Tovar, please see above. Case discussed with Dr. Ragland who kindly accepted pt for admission. Undiagnosed new problem with uncertain prognosis? @ -No Drug Therapy requiring intensive monitoring for toxicity (Heparin, Nitro, Insulin, Cardizem)? @Yes heparin Were any procedures done? @ -No Diagnosis/symptom? @VANIA, DVT, Sepsis Acute, or Chronic, or Acute on Chronic? acute Uncomplicated (without systemic symptoms) or Complicated (systemic symptoms)? complicated Side effects of treatment? @ -No Exacerbation, Progression, or Severe Exacerbation? @ -No Poses a threat to life or bodily function? How? (Chest pain, [place], [place], pneumonia, PE, COPD, DKA, ARF, appy, cholecystitis, CVA, Diverticulitis, Homicidal, Suicidal, threat to staff... and all critical care pts) yes if left untreated could progress to septic shock, massive PE and - Lab Data Result diagrams: 12/11/24 07:08 12/11/24 07:08 Lab Results 12/07/24 12/07/24 12/07/24 Range/Units 01:48 01:48 01:48 WBC 17.65 H (4.50-10.00) 10*3/uL RBC 4.05 L (4.40-5.60) 10*6/uL Hgb 11.3 L (13.0-17.0) g/dL Hct 32.4 L (39.6-50.0) % MCV 80.0 (80.0-97.0) fL MCH 27.9 (27.0-32.0) pg MCHC 34.9 (32.0-37.0) g/dL Plt Count 240 (140-440) 10*3/uL MPV 9.9 (9.5-12.2) fL Immature Gran % (Auto) 1.0 % Neutrophils % 91.3 % Lymphocytes % 1.9 % Monocytes % 5.4 % Eosinophils % 0.2 % Basophils % 0.2 % Immature Gran # 0.18 H (0.00-0.04) 10*3/uL Neutrophils # 16.10 H (1.80-7.70) 10*3/uL Lymphocytes # 0.34 L (0.90-5.00) 10*3/uL Monocytes # 0.96 (0.20-1.00) 10*3/uL Eosinophils # 0.03 L (0.04-0.35) 10*3/uL Basophils # 0.04 (0.00-0.10) 10*3/uL PT 10.1 (10.0-12.5) sec INR 0.9 (<1.2) APTT 17.9 L (22.0-30.0) sec Sodium 127 L (137-145) mmol/L Potassium 5.3 H (3.5-5.1) mmol/L Chloride 92 L (98-107) mmol/L Carbon Dioxide 20 L (22-30) mmol/L Anion Gap 15 mmol/L BUN 97 H (9-20) mg/dL Creatinine 2.94 H (0.66-1.25) mg/dL Est GFR (CKD-EPI)AfAm 23 (>60 ml/min/1.73 sqM) Est GFR (CKD-EPI)NonAf 20 (>60 ml/min/1.73 sqM) Glucose 158 H (74-99) mg/dL POC Glucose (mg/dL) (70-110) mg/dL POC Glu [employer] Worker ID Lactic Ac Sepsis Rflx Plasma Lactic Acid Andrea (0.7-2.0) mmol/L Calcium 9.9 (8.4-10.2) mg/dL Magnesium 1.7 (1.6-2.3) mg/dL Total Bilirubin 0.6 (0.2-1.3) mg/dL AST 30 (17-59) U/L ALT 35 (4-49) U/L Alkaline Phosphatase 140 H (38-126) U/L Creatine Kinase 54 L (55-170) U/L Troponin I (0.000-0.034) ng/mL C-Reactive Protein 40.3 H (<1.0) mg/dL Total Protein 6.3 (6.3-8.2) g/dL Albumin 3.5 (3.5-5.0) g/dL Lipase 63 (23-300) U/L 12/07/24 12/07/24 12/07/24 Range/Units 01:48 01:48 03:18 WBC (4.50-10.00) 10*3/uL RBC (4.40-5.60) 10*6/uL Hgb (13.0-17.0) g/dL Hct (39.6-50.0) % MCV (80.0-97.0) fL MCH (27.0-32.0) pg MCHC (32.0-37.0) g/dL Plt Count (140-440) 10*3/uL MPV (9.5-12.2) fL Immature Gran % (Auto) % Neutrophils % % Lymphocytes % % Monocytes % % Eosinophils % % Basophils % % Immature Gran # (0.00-0.04) 10*3/uL Neutrophils # (1.80-7.70) 10*3/uL Lymphocytes # (0.90-5.00) 10*3/uL Monocytes # (0.20-1.00) 10*3/uL Eosinophils # (0.04-0.35) 10*3/uL Basophils # (0.00-0.10) 10*3/uL PT (10.0-12.5) sec INR (<1.2) APTT (22.0-30.0) sec Sodium (137-145) mmol/L Potassium (3.5-5.1) mmol/L Chloride (98-107) mmol/L Carbon Dioxide (22-30) mmol/L Anion Gap mmol/L BUN (9-20) mg/dL Creatinine (0.66-1.25) mg/dL Est GFR (CKD-EPI)AfAm (>60 ml/min/1.73 sqM) Est GFR (CKD-EPI)NonAf (>60 ml/min/1.73 sqM) Glucose (74-99) mg/dL POC Glucose (mg/dL) (70-110) mg/dL POC Glu [employer] Worker ID Lactic Ac Sepsis Rflx Y Plasma Lactic Acid Andrea 2.4 H* (0.7-2.0) mmol/L Calcium (8.4-10.2) mg/dL Magnesium (1.6-2.3) mg/dL Total Bilirubin (0.2-1.3) mg/dL AST (17-59) U/L ALT (4-49) U/L Alkaline Phosphatase (38-126) U/L Creatine Kinase (55-170) U/L Troponin I 0.085 H* (0.000-0.034) ng/mL C-Reactive Protein (<1.0) mg/dL Total Protein (6.3-8.2) g/dL Albumin (3.5-5.0) g/dL Lipase (23-300) U/L 12/07/24 Range/Units 03:50 WBC (4.50-10.00) 10*3/uL RBC (4.40-5.60) 10*6/uL Hgb (13.0-17.0) g/dL Hct (39.6-50.0) % MCV (80.0-97.0) fL MCH (27.0-32.0) pg MCHC (32.0-37.0) g/dL Plt Count (140-440) 10*3/uL MPV (9.5-12.2) fL Immature Gran % (Auto) % Neutrophils % % Lymphocytes % % Monocytes % % Eosinophils % % Basophils % % Immature Gran # (0.00-0.04) 10*3/uL Neutrophils # (1.80-7.70) 10*3/uL Lymphocytes # (0.90-5.00) 10*3/uL Monocytes # (0.20-1.00) 10*3/uL Eosinophils # (0.04-0.35) 10*3/uL Basophils # (0.00-0.10) 10*3/uL PT (10.0-12.5) sec INR (<1.2) APTT (22.0-30.0) sec Sodium (137-145) mmol/L Potassium (3.5-5.1) mmol/L Chloride (98-107) mmol/L Carbon Dioxide (22-30) mmol/L Anion Gap mmol/L BUN (9-20) mg/dL Creatinine (0.66-1.25) mg/dL Est GFR (CKD-EPI)AfAm (>60 ml/min/1.73 sqM) Est GFR (CKD-EPI)NonAf (>60 ml/min/1.73 sqM) Glucose (74-99) mg/dL POC Glucose (mg/dL) 179 H (70-110) mg/dL POC Glu [employer] Worker ID IBRAHIMA CRUZ Lactic Ac Sepsis Rflx Plasma Lactic Acid Andrea (0.7-2.0) mmol/L Calcium (8.4-10.2) mg/dL Magnesium (1.6-2.3) mg/dL Total Bilirubin (0.2-1.3) mg/dL AST (17-59) U/L ALT (4-49) U/L Alkaline Phosphatase (38-126) U/L Creatine Kinase (55-170) U/L Troponin I (0.000-0.034) ng/mL C-Reactive Protein (<1.0) mg/dL Total Protein (6.3-8.2) g/dL Albumin (3.5-5.0) g/dL Lipase (23-300) U/L Disposition Clinical Impression: DVT (deep venous thrombosis), Cellulitis, Sepsis, Hyponatremia Disposition: ADMITTED IP TO THIS HOSP Condition: Stable
[2024-12-07 02:01] LABS: Basophils # (A) 0.04 10*3/uL (0.00-0.10); Basophils % (A) 0.2 %; Eosinophils # (A) 0.03 10*3/uL (0.04-0.35); Eosinophils % (A) 0.2 %; HCT 32.4 % (39.6-50.0); HGB 11.3 g/dL (13.0-17.0); Lymphocytes # (A) 0.34 10*3/uL (0.90-5.00); Lymphocytes % (A) 1.9 %; MCH 27.9 pg (27.0-32.0); MCHC 34.9 g/dL (32.0-37.0); Mean Platelet Volume 9.9 fL (9.5-12.2); Monocytes # (A) 0.96 10*3/uL (0.20-1.00); Monocytes % (A) 5.4 %; Neutrophils % (A) 91.3 %; Platelet Count 240 10*3/uL (140-440); RBC 4.05 10*6/uL (4.40-5.60); WBC 17.65 10*3/uL (4.50-10.00)
[2024-12-07 02:19] LABS: ALT 35 U/L (4-49); AST 30 U/L (17-59); African American GFR (CKD) 23 (>60 ml/min/1.73 sqM); Albumin 3.5 g/dL (3.5-5.0); Alkaline Phosphatase 140 U/L (38-126); Anion Gap 15 mmol/L; Blood Urea Nitrogen 97 mg/dL (9-20); Calcium 9.9 mg/dL (8.4-10.2); Carbon Dioxide 20 mmol/L (22-30); Chloride 92 mmol/L (98-107); Creatine Kinase 54 U/L (55-170); Glucose 158 mg/dL (74-99); Lipase 63 U/L (23-300); Magnesium 1.7 mg/dL (1.6-2.3); Non-African American GFR(CKD) 20 (>60 ml/min/1.73 sqM); Potassium 5.3 mmol/L (3.5-5.1); Sodium 127 mmol/L (137-145); Total Bilirubin 0.6 mg/dL (0.2-1.3); Total Protein 6.3 g/dL (6.3-8.2)
--- NOTE | 2024-12-07 02:26 | US ---
EXAM: US Duplex Right Lower Extremity Veins CLINICAL HISTORY: ITS.REASON US Reason: swelling, erythema TECHNIQUE: Real-time duplex ultrasound scan of the right lower extremity veins integrating B-mode two-dimensional vascular structure, Doppler spectral analysis, color flow Doppler imaging and compression. COMPARISON: Prior not available. FINDINGS: Deep veins: Positive for DVT from the right external iliac vein to the proximal calf veins. Superficial veins: No thrombus in the visualized great saphenous vein. Soft tissues: No acute findings. No popliteal cyst. IMPRESSION: Positive for DVT from the right external iliac vein to the proximal calf veins. <MYCVCSECTION> Communications: 12/07/24 02:33 Call Doctor Regarding DVT – acute, progressing, called Dr. Castañeda on 12/07 02:33 (-04:00)
[2024-12-07] MEDS: LACTATED RINGERS 1,000 ML IV ONE (02:38)
[2024-12-07] MEDS: PIPERACILLIN-TAZOBACTAM 3.375 GM in SODIUM CHLORIDE 0.9% 100 ML IVPB STA (02:38)
[2024-12-07 02:49] LABS: INR 0.9 (<1.2); Prothrombin Time 10.1 sec (10.0-12.5)
[2024-12-07 03:09] LABS: C Reactive Protein 40.3 mg/dL (<1.0)
[2024-12-07 03:30] LABS: Partial Thromboplastin Time 17.9 sec (22.0-30.0)
[2024-12-07 03:52] LABS: Glucose,Whole Blood 179 mg/dL (70-110)
[2024-12-07] MEDS: CLINDAMYCIN 900 MG in DEXTROSE 5% IN WATER 50 ML IVPB STA (03:57)
[2024-12-07] MEDS: HYDROmorphone 0.5 MG/0.5 ML SYRINGE IVP STA ×2 (04:12→06:49)
--- NOTE | 2024-12-07 05:07 | CT ---
EXAM: CT Abdomen and Pelvis Without Intravenous Contrast CLINICAL HISTORY: ITS.REASON CT Reason: abdominal pain TECHNIQUE: Axial computed tomography images of the abdomen and pelvis without intravenous contrast. CTDI is 15 mGy and DLP is 1022.8 mGy-cm. This CT exam was performed using one or more of the following dose reduction techniques: automated exposure control, adjustment of the mA and/or kV according to patient size, and/or use of iterative reconstruction technique. COMPARISON: CT Abdomen Pelvis dated 03/31/2024, Venous ultrasound of the right lower extremity dated 12/07/2024 FINDINGS: Lung bases: Unremarkable. No mass. No consolidation. Heart: Coronary calcifications. ABDOMEN: Liver: Low attenuation focus in the liver which may be due to a cyst but is too small to characterize. Gallbladder and bile ducts: Unremarkable. No calcified stones. No ductal dilation. Pancreas: Unremarkable. No ductal dilation. Spleen: Unremarkable. No splenomegaly. Adrenals: Unremarkable. No mass. Kidneys and ureters: Bilateral hydroureteronephrosis extending to the urinary bladder, mildly increased. Stomach and bowel: Colonic diverticulosis. No obstruction. No mucosal thickening. PELVIS: Appendix: Normal appendix. Bladder: Unremarkable. No stones. Reproductive: Unremarkable as visualized. ABDOMEN and PELVIS: Intraperitoneal space: Unremarkable. No free air. No significant fluid collection. Bones/joints: L3 superior endplate central compression deformity is age indeterminate although new since the prior. T7 compression deformity, age indeterminate. No dislocation. Soft tissues: Asymmetric soft tissue swelling of the right lower extremity. Vasculature: Atherosclerotic calcifications of the ectatic aorta up to 3 cm. Moderate aortoiliac atherosclerotic calcifications. Inadequate evaluation for thrombosis on this noncontrast study. However given DVT findings on the ultrasound today, enlarged appearance of the right femoral vein likely reflects DVT. Lymph nodes: Unremarkable. No enlarged lymph nodes. IMPRESSION: 1. Asymmetric soft tissue swelling of the right lower extremity. 2. Inadequate evaluation for thrombosis on this noncontrast study. However given DVT findings on the ultrasound today, enlarged appearance of the right femoral vein likely reflects DVT. 3. L3 superior endplate central compression deformity is age indeterminate although new since the prior. T7 compression deformity, age indeterminate. 4. Bilateral hydroureteronephrosis extending to the urinary bladder, mildly increased. Correlate for bladder outlet obstruction versus chronic appearance. 5. Colonic diverticulosis.
--- NOTE | 2024-12-07 05:15 | CT ---
EXAM: CT Right Lower Extremity Without Intravenous Contrast CLINICAL HISTORY: ITS.REASON CT Reason: RLE swelling, erythema, nec fasc? right leg swelling w/ blister on right foot pt has hx of LE issues see previous studies/US TECHNIQUE: Axial computed tomography images of the right lower extremity without intravenous contrast. CTDI is 14.5 mGy and DLP is 1775 mGy-cm. This CT exam was performed using one or more of the following dose reduction techniques: automated exposure control, adjustment of the mA and/or kV according to patient size, and/or use of iterative reconstruction technique. COMPARISON: Right lower extremity venous ultrasound dated 12/07/2024 FINDINGS: Bones/joints: Unremarkable. No acute fracture. No dislocation. Soft tissues: Asymmetric soft tissue swelling throughout the right lower extremity, notably of the lower leg. Skin thickening. Lobular skin lesions/blisters of the anterior lower leg and foot. No soft tissue gas. Vasculature: Atherosclerotic calcifications, notably of the femoral arteries. Limited evaluation of the vessels on this noncontrast study. Enlarged appearance of the right femoral vein likely correlates with DVT seen on the ultrasound. IMPRESSION: 1. Asymmetric soft tissue swelling throughout the right lower extremity, notably of the lower leg. Skin thickening. Lobular skin lesions/blisters of the anterior lower leg and foot. Findings may relate to DVT and edema, cellulitis. 2. No soft tissue gas to suggest necrotizing fasciitis, however correlate clinically. 3. Limited evaluation of the vessels on this noncontrast study. Enlarged appearance of the right femoral vein likely correlates with DVT seen on the ultrasound.
[2024-12-07] MEDS: ACETAMINOPHEN IV (For NPO) 1,000 MG in EMPTY BAG 1 BAG IVPB STA (05:17)
[2024-12-07] MEDS ORDERED: NALOXONE 0.4 MG/ML 1 ML VIAL IV PRN (05:49)
[2024-12-07] MEDS ORDERED: MORPHINE SULFATE 4 MG/ML SYRINGE IV PRN (05:49)
[2024-12-07] MEDS ORDERED: ACETAMINOPHEN TAB 325 MG TAB PO PRN (05:49)
[2024-12-07] MEDS: VANCOMYCIN 1,500 MG in SODIUM CHLORIDE 0.9% 500 ML 500 ML IVPB ONE (05:56)
[2024-12-07 06:26] LABS: Appearance,Urine Cloudy (Clear); Bacteria,Urine Occasional /hpf; Bilirubin,Urine Negative (Negative); Blood,Urine Small (Negative); Color,Urine Colorless; Glucose,Urine (UA) Negative (Negative); Ketones,Urine Negative (Negative); Leukocyte Esterase,Urine Large (Negative); Nitrite,Urine Negative (Negative); Protein,Urine 2+ (Negative); RBC,Urine 2 /hpf (0-5); Squamous Epithelial Cell,Urine <1 /hpf (0-4); Urobilinogen,Urine <2.0 mg/dL (<2.0); WBC,Urine >182 /hpf (0-5)
[2024-12-07] MEDS: HEPARIN SOD,PORK IN 0.45% NACL 25,000 UNIT in 0.45% NACL 1 250ML.BAG IV SCH (06:29)
[2024-12-07] MEDS: HEPARIN SODIUM 1,000 UN/ML (10ML VL) IV ONE (06:33)
[2024-12-07] MEDS ORDERED: DEXTROSE 50% SYRINGE 50 ML IVP PRN ×2 (08:33)
--- NOTE | 2024-12-07 09:23 | P.HPIM ---
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 He claims that he was doing well up until 3 days ago. He started noticing his right leg getting more edematous with blisters and drainage. He is also noticing chills. He had some nonbilious emesis, occasional abdominal pain which has not resolved. Denies any changes in bowel movements. He denies any fevers. Has been feeling generally weak. Denies any chest pain, shortness of breath. Denies any changes in urine output. He denies any changes in his medication dose recently. In the ED, temperature was 1 pulse 123, respiratory rate 18, blood pressure 107/54, saturating 98% on room air. WBC 17.65, hemoglobin 11.3, platelet 240, sodium 127, potassium 5.3, creatinine 2.94 above baseline, lactate 2.4 total bili 0.6, AST 30, ALT 35, ALP 140, CK 54, troponin 0.085, CRP 40.3, lipase 63. Urinalysis shows large leukocyte esterase, negative nitrates. EKG independently interpreted, shows sinus tachycardia. Lower extremity Doppler showed positive DVT from the right external iliac vein to the proximal calf veins. Abdomen pelvis CT showed asymmetric soft tissue swelling of the right lower extremity, likely secondary DVT L3 central compression deformity, T7 compression deformity both indeterminate age, bilateral hydroureteronephrosis with increased. Right lower extremity CT shows no evidence of necrotizing fasciitis, has soft tissue swelling concerning for edema secondary to her DVT and cellulitis. Patient was given 1 L of LR in the ED, also given IV Zosyn, IV vancomycin, started on heparin drip. Pertinent positives and negatives as discussed in HPI, a complete review of systems was performed and all other systems are negative. Patient seen and examined at bedside. Vital signs reviewed General: nontoxic, no distress, appears at stated age Derm: warm, dry, multiple vesiculobullous lesions involving the anterior surface of his right maldonado and dorsal aspect of foot. Significant erythema and edema involving the entirety of right lower extremity with clear drainage, multiple ecchymosis involving bilateral upper extremities Head: atraumatic, normocephalic, symmetric Eyes: EOMI, no lid lag, anicteric sclera, pupils equal round reactive to light ENT: Nose and ears atraumatic Neck: No thyromegaly, supple Mouth: no lip lesion, mucus membranes moist Cardiovascular: S1S2 reg, no murmur, no edema Lungs: clear to auscultation bilateral, no rhonchi, no rales, no wheeze, no accessory muscle use Abdominal: soft, obese abdomen, nontender to palpation, no guarding, no appreciable organomegaly Ext: no gross muscle atrophy, muscle strength muscle strength 4 out of 5 in both lower extremities, no contractures Neuro: CN II-XII grossly intact Psych: Alert, oriented, appropriate affect Assessment/Plan: Active: Acute right leg DVT Right leg cellulitis Sepsis secondary to above - Maintain on heparin drip, monitor APTT, monitor for bleeding - Continue IV vancomycin given history of prior MRSA infection, monitor for renal toxicity - Patient was given 1 L of LR in the ED, hold Imdur and torsemide given concerns for sepsis - Vesiculobullous rash concerning for possible CellCept induced. However, no recent changes and his CellCept dose suggest otherwise. 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 Bilateral hydroureteronephrosis Likely hypovolemic hyponatremia Hypokalemia Anion gap metabolic acidosis -Cadena catheter in place, renal ultrasound ordered - Continue CellCept 250 twice daily, prednisone 20 daily - Nephrology also consulted - May need further fluids, continue to hold torsemide Elevated troponin - Likely in the setting of CKD - No active chest pain - Continue aspirin and statin Type 2 diabetes - Continue home 70/30 insulin 10 units twice daily - Sliding scale insulin, monitor for hypoglycemia Resolved: Lactic acidosis Chronic: HFrEF 30 to 35% Hypertension Dyslipidemia The patient is admitted with an anticipated greater than 2 midnight stay as inpatient status for evaluation of acute DVT, VANIA. Surrogate decision-maker: Significant other CODE STATUS: Full code DVT prophylaxis: Heparin drip Anticipated discharge date: Pending clinical course Anticipated discharge place: Pending clinical course A total of 66 minutes was spent on the care of this complex patient more than 50% of the time was spent in counseling and care coordination. Past Medical History Past Medical History: Heart Failure, Diabetes Mellitus, Hyperlipidemia, Hyper tension, Renal Disease Additional Past Medical History / Comment(s): Cardiomyopathy, tumor in front of heart being monitored Last Myocardial Infarction Date:: 2022 History of Any Multi-Drug Resistant Organisms: MRSA Date of last positivie culture/infection: 04/01/24 MDRO Source:: GROIN Past Surgical History: No Surgical Hx Reported Past Anesthesia/Blood Transfusion Reactions: No Reported Reaction Additional Past Anesthesia/Blood Transfusion Reaction / Comment(s): . Past Psychological History: No Psychological Hx Reported Smoking Status: Former smoker Past Alcohol Use History: Rare Past Drug Use History: Marijuana - Past Family History Father Family Medical History: Diabetes Mellitus, Myocardial Infarction ([place]) Additional Family Medical History / Comment(s): Had leg amputation Mother History Unknown: Yes Family Medical History: No Reported History Sister(s) Family Medical History: Diabetes Mellitus Additional Family Medical History / Comment(s): 1 sister had arm amputated due to diabetes Medications and Allergies Home Medications Medication Instructions Recorded Confirmed Type Acetaminophen Tab [Tylenol] 650 mg PO Q8H PRN 11/17/23 12/07/24 History Magnesium Oxide [Mag-Ox] 400 mg PO DAILY 11/17/23 12/07/24 History Metoprolol Tartrate [Lopressor] 50 mg PO BID-W/MEALS 11/17/23 12/07/24 History Insulin NPH Hum/Reg Insulin Hm 10 unit SQ BID 12/17/23 12/07/24 History [humuLIN 70/30 Kwikpen] predniSONE [Deltasone] 20 mg PO DAILY #30 tab 12/20/23 12/07/24 Rx mycophenolate mofetiL [Cellcept] 250 mg PO BID 04/01/24 12/07/24 History Aspirin EC [Ecotrin Low Dose] 81 mg PO DAILY 09/24/24 12/07/24 History Atorvastatin [Lipitor] 40 mg PO DAILY 09/24/24 12/07/24 History Isosorbide Mononitrate ER [Imdur] 30 mg PO DAILY 12/07/24 12/07/24 History SILVER sulfADIAZINE Cream 1 applic TOPICAL BID 12/07/24 12/07/24 History [Silvadene 1% Cream] Torsemide [Demadex] 20 mg PO BID-W/MEALS 12/07/24 12/07/24 History Allergies Allergy/AdvReac Type Severity Reaction Status Date / Time No Known Allergies Allergy Verified 12/07/24 08:12 Physical Exam Vitals: Vital Signs Temp Pulse Resp BP Pulse Ox 12/07/24 07:12 102 H 22 115/92 98 12/07/24 06:00 98.3 F 98 22 126/85 98 12/07/24 05:00 97.8 F 109 H 20 113/68 97 12/07/24 04:15 115 H 137/94 12/07/24 03:17 98.4 F 109 H 24 123/82 97 12/07/24 00:27 99.0 F 123 H 18 107/54 98 Intake and Output 12/06/24 12/07/24 12/07/24 22:59 06:59 14:59 Output Total 150 Balance -150 Output: Urine 100 Straight 100 Post Void Residual 50 Other: Weight 79.832 kg Results CBC & Chem 7: 12/07/24 01:48 12/07/24 01:48 Labs: Abnormal Lab Results - Last 24 Hours (Table) 12/07/24 12/07/24 12/07/24 Range/Units 01:48 01:48 01:48 WBC 17.65 H (4.50-10.00) 10*3/uL RBC 4.05 L (4.40-5.60) 10*6/uL Hgb 11.3 L (13.0-17.0) g/dL Hct 32.4 L (39.6-50.0) % Immature Gran # 0.18 H (0.00-0.04) 10*3/uL Neutrophils # 16.10 H (1.80-7.70) 10*3/uL Lymphocytes # 0.34 L (0.90-5.00) 10*3/uL Eosinophils # 0.03 L (0.04-0.35) 10*3/uL APTT 17.9 L (22.0-30.0) sec Sodium 127 L (137-145) mmol/L Potassium 5.3 H (3.5-5.1) mmol/L Chloride 92 L (98-107) mmol/L Carbon Dioxide 20 L (22-30) mmol/L BUN 97 H (9-20) mg/dL Creatinine 2.94 H (0.66-1.25) mg/dL Glucose 158 H (74-99) mg/dL POC Glucose (mg/dL) (70-110) mg/dL Plasma Lactic Acid Andrea (0.7-2.0) mmol/L Alkaline Phosphatase 140 H (38-126) U/L Creatine Kinase 54 L (55-170) U/L Troponin I (0.000-0.034) ng/mL C-Reactive Protein 40.3 H (<1.0) mg/dL Urine Protein (Negative) Urine Blood (Negative) Ur Leukocyte Esterase (Negative) Urine WBC (0-5) /hpf Urine WBC Clumps (None) /hpf Urine Bacteria (None) /hpf Ur Random Sodium (40-220) mmol/L 12/07/24 12/07/24 12/07/24 Range/Units 01:48 01:48 03:50 WBC (4.50-10.00) 10*3/uL RBC (4.40-5.60) 10*6/uL Hgb (13.0-17.0) g/dL Hct (39.6-50.0) % Immature Gran # (0.00-0.04) 10*3/uL Neutrophils # (1.80-7.70) 10*3/uL Lymphocytes # (0.90-5.00) 10*3/uL Eosinophils # (0.04-0.35) 10*3/uL APTT (22.0-30.0) sec Sodium (137-145) mmol/L Potassium (3.5-5.1) mmol/L Chloride (98-107) mmol/L Carbon Dioxide (22-30) mmol/L BUN (9-20) mg/dL Creatinine (0.66-1.25) mg/dL Glucose (74-99) mg/dL POC Glucose (mg/dL) 179 H (70-110) mg/dL Plasma Lactic Acid Andrea 2.4 H* (0.7-2.0) mmol/L Alkaline Phosphatase (38-126) U/L Creatine Kinase (55-170) U/L Troponin I 0.085 H* (0.000-0.034) ng/mL C-Reactive Protein (<1.0) mg/dL Urine Protein (Negative) Urine Blood (Negative) Ur Leukocyte Esterase (Negative) Urine WBC (0-5) /hpf Urine WBC Clumps (None) /hpf Urine Bacteria (None) /hpf Ur Random Sodium (40-220) mmol/L 12/07/24 12/07/24 Range/Units 05:58 05:58 WBC (4.50-10.00) 10*3/uL RBC (4.40-5.60) 10*6/uL Hgb (13.0-17.0) g/dL Hct (39.6-50.0) % Immature Gran # (0.00-0.04) 10*3/uL Neutrophils # (1.80-7.70) 10*3/uL Lymphocytes # (0.90-5.00) 10*3/uL Eosinophils # (0.04-0.35) 10*3/uL APTT (22.0-30.0) sec Sodium (137-145) mmol/L Potassium (3.5-5.1) mmol/L Chloride (98-107) mmol/L Carbon Dioxide (22-30) mmol/L BUN (9-20) mg/dL Creatinine (0.66-1.25) mg/dL Glucose (74-99) mg/dL POC Glucose (mg/dL) (70-110) mg/dL Plasma Lactic Acid Andrea (0.7-2.0) mmol/L Alkaline Phosphatase (38-126) U/L Creatine Kinase (55-170) U/L Troponin I (0.000-0.034) ng/mL C-Reactive Protein (<1.0) mg/dL Urine Protein 2+ H (Negative) Urine Blood Small H (Negative) Ur Leukocyte Esterase Large H (Negative) Urine WBC >182 H (0-5) /hpf Urine WBC Clumps Moderate H (None) /hpf Urine Bacteria Occasional H (None) /hpf Ur Random Sodium 30 L (40-220) mmol/L
[2024-12-07] MEDS: INSULIN NPL/INSULIN LISPRO 100 UNIT/ML 10 ML VL (Humalog 75/25) SQ SCH (09:41)
--- NOTE | 2024-12-07 09:41 | US ---
EXAMINATION TYPE: US kidneys/renal and bladder DATE OF EXAM: 12/07/2024 COMPARISON: NONE CLINICAL INDICATION: Male, 74 years old with history of adryan on ckd; adryan TECHNIQUE: Grayscale imaging of the bilateral kidneys and urinary bladder: FINDINGS: EXAM MEASUREMENTS: Right Kidney: 12.2 x 5.4 x 5.8 cm Left Kidney: 10.8 x 5.4 x 5.0 cm Right Kidney: mild to moderate hydronephrosis seen. cystic pole measuring 1.3 x 1.3 x 1.4cm sup pole Left Kidney: Mild to moderate hydronephrosis seen. Slightly limited due to body habitus Bladder: Decompressed by waldron catheter Bilateral Jets seen: No IMPRESSION: 1. Mild left hydronephrosis 2. Right renal cyst [facility], , 12/07/2024 9:39 AM
[2024-12-07] MEDS: FAMOTIDINE 20 MG TAB PO SCH (09:47)
[2024-12-07] MEDS: predniSONE 20 MG TAB PO SCH (09:47)
[2024-12-07] MEDS: ASPIRIN 81 MG PO SCH (09:47)
[2024-12-07] MEDS: ATORVASTATIN 40 MG TAB PO SCH (09:47)
[2024-12-07 09:58] LABS: Glucose,Whole Blood 162 mg/dL (70-110)
--- NOTE | 2024-12-07 11:57 | P.NPCON ---
History of Present Illness - Reason for Consult chronic renal failure - History of Present Illness Patient is a 73-year-old male with history of CKD stage IIIb-IV with baseline creatinine about 1.7 to 2 mg/dL. Patient has a history of biopsy-proven crescentic glomerulonephritis status post Rituxan. Currently maintained on CellCept and prednisone. He is admitted to the hospital with increased pain and swelling in his right leg with blisters noted as well. He did not have any fever or chills No diarrhea nausea vomiting No significant changes in urine output No significant hypotension noted although initial systolic blood pressure was on the lower side at 107 mmHg Serum creatinine 2.9 mg/dL with potassium of 5.3. Lactic acid was elevated at 2.4. 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 Past Psychological History: No Psychological Hx Reported Smoking Status: Former smoker Past Alcohol Use History: Rare Past Drug Use History: Marijuana - Past Family History Father Family Medical History: Diabetes Mellitus, Myocardial Infarction ([place]) Additional Family Medical History / Comment(s): Had leg amputation Mother History Unknown: Yes Family Medical History: No Reported History Sister(s) Family Medical History: Diabetes Mellitus Additional Family Medical History / Comment(s): 1 sister had arm amputated due to diabetes Medications and Allergies Home Medications Medication Instructions Recorded Confirmed Type Acetaminophen Tab [Tylenol] 650 mg PO Q8H PRN 11/17/23 12/07/24 History Magnesium Oxide [Mag-Ox] 400 mg PO DAILY 11/17/23 12/07/24 History Metoprolol Tartrate [Lopressor] 50 mg PO BID-W/MEALS 11/17/23 12/07/24 History Insulin NPH Hum/Reg Insulin Hm 10 unit SQ BID 12/17/23 12/07/24 History [humuLIN 70/30 Kwikpen] predniSONE [Deltasone] 20 mg PO DAILY #30 tab 12/20/23 12/07/24 Rx mycophenolate mofetiL [Cellcept] 250 mg PO BID 04/01/24 12/07/24 History Aspirin EC [Ecotrin Low Dose] 81 mg PO DAILY 09/24/24 12/07/24 History Atorvastatin [Lipitor] 40 mg PO DAILY 09/24/24 12/07/24 History Isosorbide Mononitrate ER [Imdur] 30 mg PO DAILY 12/07/24 12/07/24 History SILVER sulfADIAZINE Cream 1 applic TOPICAL BID 12/07/24 12/07/24 History [Silvadene 1% Cream] Torsemide [Demadex] 20 mg PO BID-W/MEALS 12/07/24 12/07/24 History Allergies Allergy/AdvReac Type Severity Reaction Status Date / Time No Known Allergies Allergy Verified 12/07/24 08:12 Physical Exam Vitals: Vital Signs Temp Pulse Resp BP Pulse Ox 12/07/24 10:00 98 18 103/68 98 12/07/24 07:12 102 H 22 115/92 98 12/07/24 06:00 98.3 F 98 22 126/85 98 12/07/24 05:00 97.8 F 109 H 20 113/68 97 12/07/24 04:15 115 H 137/94 12/07/24 03:17 98.4 F 109 H 24 123/82 97 12/07/24 00:27 99.0 F 123 H 18 107/54 98 Intake and Output 12/06/24 12/07/24 12/07/24 22:59 06:59 14:59 Output Total 150 Balance -150 Output: Urine 100 Straight 100 Post Void Residual 50 Other: Weight 79.832 kg Patient is awake, comfortable, no acute distress Examination of the heart S1 and S2 Examination of the lungs bilateral breath sounds are heard Decreased breath sounds at the bases Abdomen is soft nontender Examination lower extremity shows chronic skin changes with significant erythema and blistering noted on the right leg. ED TRANSPORTER exam grossly intact Results - Lab Results Most recent lab results Calcium 9.9 mg/dL (8.4-10.2) 12/07/24 01:48 Magnesium 1.7 mg/dL (1.6-2.3) 12/07/24 01:48 12/07/24 01:48 12/07/24 01:48 Assessment and Plan Assessment: 1. Acute kidney injury, nonoliguric ATN associated with underlying infection, and obstructive uropathy.. Ultrasound shows mild to moderate hydronephrosis bilaterally. Currently with indwelling Cadena catheter which was placed in the ER 2. 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 Previously received Rituxan 3. Right leg cellulitis maintained on antibiotics 4. Lactic acidosis 5. Cardiomyopathy with a EF of 30 to 35% Plan: Agree with discontinuation of diuretics Continue with antibiotics Check chest x-ray Continue with indwelling Cadena catheter Repeat sodium level today Thank you for the consultation. We will continue to follow the patient with you during his hospitalization.
[2024-12-07 12:31] LABS: Glucose,Whole Blood 174 mg/dL (70-110)
[2024-12-07] MEDS: INSULIN LISPRO (HumaLOG) 100 UNIT/ML 10 mL VL SQ SCH (13:01)
--- NOTE | 2024-12-07 13:57 | XR ---
EXAMINATION TYPE: XR chest 1V DATE OF EXAM: 12/07/2024 12:53 PM COMPARISON: 09/24/2024 CLINICAL INDICATION: Male, 74 years old with history of chf, TECHNIQUE: XR chest 1V view(s) obtained. FINDINGS: The heart size is normal. The pulmonary vasculature is normal. The lungs are clear. IMPRESSION: 1. No acute pulmonary process. [facility], , 12/07/2024 1:55 PM
[2024-12-07 17:53] LABS: Glucose,Whole Blood 238 mg/dL (70-110)
[2024-12-07] MEDS: METOPROLOL TARTRATE 50 MG TAB PO SCH (18:05)
[2024-12-07 20:24] LABS: Glucose,Whole Blood 174 mg/dL (70-110)
[2024-12-07 21:45] LABS: Glucose,Whole Blood 174 mg/dL (70-110)
[2024-12-07] MEDS ORDERED: ZINC OXIDE PASTE (Z-GUARD) 1 APPLIC TOPICAL PRN (22:07)
[2024-12-08] MEDS ORDERED: VANCOMYCIN 1,500 MG in SODIUM CHLORIDE 0.9% 500 ML 500 ML IVPB ONE (06:00)
[2024-12-08 06:04] LABS: Glucose,Whole Blood 165 mg/dL (70-110)
[2024-12-08 07:28] LABS: ALT 35 U/L (4-49); AST 27 U/L (17-59); African American GFR (CKD) 26 (>60 ml/min/1.73 sqM); Albumin 2.8 g/dL (3.5-5.0); Alkaline Phosphatase 132 U/L (38-126); Anion Gap 11 mmol/L; Blood Urea Nitrogen 85 mg/dL (9-20); Calcium 8.7 mg/dL (8.4-10.2); Carbon Dioxide 18 mmol/L (22-30); Chloride 99 mmol/L (98-107); Glucose 143 mg/dL (74-99); Magnesium 1.6 mg/dL (1.6-2.3); Non-African American GFR(CKD) 23 (>60 ml/min/1.73 sqM); Potassium 4.1 mmol/L (3.5-5.1); Sodium 128 mmol/L (137-145); Total Bilirubin 0.4 mg/dL (0.2-1.3); Total Protein 5.5 g/dL (6.3-8.2)
[2024-12-08 08:10] LABS: Basophils # (A) 0.03 10*3/uL (0.00-0.10); Basophils % (A) 0.2 %; Eosinophils # (A) 0.02 10*3/uL (0.04-0.35); Eosinophils % (A) 0.1 %; Lymphocytes # (A) 0.71 10*3/uL (0.90-5.00); Lymphocytes % (A) 4.3 %; MCH 27.7 pg (27.0-32.0); MCHC 34.1 g/dL (32.0-37.0); MCV 81.3 fL (80.0-97.0); Mean Platelet Volume 10.5 fL (9.5-12.2); Monocytes # (A) 0.92 10*3/uL (0.20-1.00); Monocytes % (A) 5.6 %; Neutrophils # (A) 14.47 10*3/uL (1.80-7.70); Platelet Count 221 10*3/uL (140-440); RBC 3.32 10*6/uL (4.40-5.60); RDW 16.2 % (11.5-14.5); WBC 16.44 10*3/uL (4.50-10.00)
[2024-12-08 08:18] LABS: HGB 9.2 g/dL (13.0-17.0)
[2024-12-08] MEDS: HEPARIN SODIUM 1,000 UN/ML (10ML VL) IV PRN (09:40)
[2024-12-08 11:28] LABS: Glucose,Whole Blood 128 mg/dL (70-110)
--- NOTE | 2024-12-08 12:14 | P.PN ---
Subjective Progress Note Date: 12/08/24 Subjective: Patient seen and examined at bedside. No acute events overnight. Continues to have bilateral lower extremity pain, worse on the right side. Pertinent positives and negatives as discussed above, a complete review of systems was performed and all other systems are negative. Vitals Signs Reviewed. General: nontoxic, no distress, appears at stated age Derm: warm, dry, multiple vesiculobullous lesions involving the anterior surface of his right maldonado and dorsal aspect of foot. Significant erythema and edema involving the entirety of right lower extremity with clear drainage, multiple ecchymosis involving bilateral upper extremities Head: atraumatic, normocephalic, symmetric Eyes: EOMI, no lid lag, anicteric sclera, pupils equal round reactive to light ENT: Nose and ears atraumatic Neck: No thyromegaly, supple Mouth: no lip lesion, mucus membranes moist Cardiovascular: S1S2 reg, systolic murmur, no edema Lungs: clear to auscultation bilateral, no rhonchi, no rales, no wheeze, no accessory muscle use Abdominal: soft, obese abdomen, nontender to palpation, no guarding, no appreciable organomegaly Ext: no gross muscle atrophy, muscle strength muscle strength 4 out of 5 in both lower extremities, no contractures Neuro: CN II-XII grossly intact Psych: Alert, oriented, appropriate affect Data Reviewed Today: Pertinent Labs: WBC 16.44, hemoglobin 9.2, sodium 128, bicarb 18, creatinine 2.65, blood sugars range between 128-174 Imaging: Renal ultrasound shows mild left hydronephrosis Assessment and Plan: Active: Acute right leg DVT Right leg cellulitis Sepsis secondary to above Proteus bacteremia - Maintain on heparin drip, monitor APTT, monitor for bleeding - Continue IV vancomycin given history of prior MRSA infection, monitor for renal toxicity - Blood cultures positive for Proteus, also started on IV ceftriaxone 2 g every 24 hours - ID consulted - Continue to hold Imdur and torsemide - Vesiculobullous rash concerning for possible CellCept induced. However, no recent changes and his CellCept dose suggest otherwise. 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 Bilateral hydroureteronephrosis Likely hypovolemic hyponatremia Hypokalemia Anion gap metabolic acidosis -Cadena catheter in place - Continue CellCept 250 twice daily, prednisone 20 daily - Nephrology following - continue to hold torsemide Elevated troponin - Likely in the setting of CKD - No active chest pain - Continue aspirin and statin Type 2 diabetes - Continue home 70/30 insulin 10 units twice daily - Sliding scale insulin, monitor for hypoglycemia Resolved: Lactic acidosis Chronic: HFrEF 30 to 35% Hypertension Dyslipidemia DVT ppx: Subcu heparin Code status: Full code Anticipated discharge place: Pending clinical course Anticipated discharge time: Pending clinical course Objective - Vital Signs Vital signs: Vital Signs Temp 97.9 F 12/08/24 07:58 Pulse 82 12/08/24 07:58 Resp 16 12/08/24 07:58 BP 116/71 12/08/24 07:58 Pulse Ox 99 12/08/24 07:58 FiO2 Intake & Output 12/07/24 12/08/24 12/08/24 18:59 06:59 18:59 Intake Total 200.222 307.924 Output Total 2250 350 Balance -2049.778 -42.076 Weight 83 kg Intake: Intake, IV Titration 200.222 189.924 Amount Heparin Sod,Pork in 0.45% 200.222 189.924 NaCl 25,000 unit In 0.45 % NaCl 1 250ml.bag @ 18 UNITS/KG/HR 14.37 mls/hr IV .[id number] LUCIANO Rx#: [id number] Oral 118 Output: Urine 2250 350 Other: Voiding Method Indwelling Catheter Indwelling Catheter # Bowel Movements 1 - Labs CBC & Chem 7: 12/08/24 06:32 12/08/24 06:32 Labs: Abnormal Lab Results - Last 24 Hours (Table) 12/07/24 12/07/24 12/07/24 Range/Units 12:18 12:18 12:29 WBC (4.50-10.00) 10*3/uL RBC (4.40-5.60) 10*6/uL Hgb (13.0-17.0) g/dL Hct (39.6-50.0) % Immature Gran # (0.00-0.04) 10*3/uL Neutrophils # (1.80-7.70) 10*3/uL Lymphocytes # (0.90-5.00) 10*3/uL Eosinophils # (0.04-0.35) 10*3/uL APTT 45.9 H (22.0-30.0) sec Sodium 130 L (137-145) mmol/L Carbon Dioxide (22-30) mmol/L BUN (9-20) mg/dL Creatinine (0.66-1.25) mg/dL Glucose (74-99) mg/dL POC Glucose (mg/dL) 174 H (70-110) mg/dL Hemoglobin A1c (<=6.0) % Alkaline Phosphatase (38-126) U/L Total Protein (6.3-8.2) g/dL Albumin (3.5-5.0) g/dL 12/07/24 12/07/24 12/07/24 Range/Units 17:52 20:23 21:43 WBC (4.50-10.00) 10*3/uL RBC (4.40-5.60) 10*6/uL Hgb (13.0-17.0) g/dL Hct (39.6-50.0) % Immature Gran # (0.00-0.04) 10*3/uL Neutrophils # (1.80-7.70) 10*3/uL Lymphocytes # (0.90-5.00) 10*3/uL Eosinophils # (0.04-0.35) 10*3/uL APTT (22.0-30.0) sec Sodium (137-145) mmol/L Carbon Dioxide (22-30) mmol/L BUN (9-20) mg/dL Creatinine (0.66-1.25) mg/dL Glucose (74-99) mg/dL POC Glucose (mg/dL) 238 H 174 H 174 H (70-110) mg/dL Hemoglobin A1c (<=6.0) % Alkaline Phosphatase (38-126) U/L Total Protein (6.3-8.2) g/dL Albumin (3.5-5.0) g/dL 12/08/24 12/08/24 12/08/24 Range/Units 06:03 06:32 06:32 WBC (4.50-10.00) 10*3/uL RBC (4.40-5.60) 10*6/uL Hgb (13.0-17.0) g/dL Hct (39.6-50.0) % Immature Gran # (0.00-0.04) 10*3/uL Neutrophils # (1.80-7.70) 10*3/uL Lymphocytes # (0.90-5.00) 10*3/uL Eosinophils # (0.04-0.35) 10*3/uL APTT (22.0-30.0) sec Sodium 128 L (137-145) mmol/L Carbon Dioxide 18 L (22-30) mmol/L BUN 85 H (9-20) mg/dL Creatinine 2.65 H (0.66-1.25) mg/dL Glucose 143 H (74-99) mg/dL POC Glucose (mg/dL) 165 H (70-110) mg/dL Hemoglobin A1c 8.0 H (<=6.0) % Alkaline Phosphatase 132 H (38-126) U/L Total Protein 5.5 L (6.3-8.2) g/dL Albumin 2.8 L (3.5-5.0) g/dL 12/08/24 12/08/24 12/08/24 Range/Units 06:32 06:32 11:27 WBC 16.44 H (4.50-10.00) 10*3/uL RBC 3.32 L (4.40-5.60) 10*6/uL Hgb 9.2 L D (13.0-17.0) g/dL Hct 27.0 L (39.6-50.0) % Immature Gran # 0.29 H (0.00-0.04) 10*3/uL Neutrophils # 14.47 H (1.80-7.70) 10*3/uL Lymphocytes # 0.71 L (0.90-5.00) 10*3/uL Eosinophils # 0.02 L (0.04-0.35) 10*3/uL APTT 31.6 H (22.0-30.0) sec Sodium (137-145) mmol/L Carbon Dioxide (22-30) mmol/L BUN (9-20) mg/dL Creatinine (0.66-1.25) mg/dL Glucose (74-99) mg/dL POC Glucose (mg/dL) 128 H (70-110) mg/dL Hemoglobin A1c (<=6.0) % Alkaline Phosphatase (38-126) U/L Total Protein (6.3-8.2) g/dL Albumin (3.5-5.0) g/dL Microbiology - Last 24 Hours (Table) 12/07/24 01:48 Blood Culture Gram Stain - Preliminary Blood Blood Culture - Preliminary Molecular ID
--- NOTE | 2024-12-08 13:03 | P.PN ---
Subjective Patient is seen for follow-up of chronic kidney disease and acute kidney injury. No significant complaints today. Overall feeling better Serum creatinine at 2.6 mg/dL No nausea or vomiting 2.2 L of urine documented for 24 hours. Objective - Vital Signs Vital signs: Vital Signs Temp 97.9 F 12/08/24 07:58 Pulse 88 12/08/24 12:00 Resp 16 12/08/24 12:00 BP 125/76 12/08/24 12:00 Pulse Ox 100 12/08/24 12:00 FiO2 Intake & Output 12/07/24 12/08/24 12/08/24 18:59 06:59 18:59 Intake Total 200.222 307.924 Output Total 2250 350 Balance -2049.778 -42.076 Weight 83 kg Intake: Intake, IV Titration 200.222 189.924 Amount Heparin Sod,Pork in 0.45% 200.222 189.924 NaCl 25,000 unit In 0.45 % NaCl 1 250ml.bag @ 18 UNITS/KG/HR 14.37 mls/hr IV .[id number] [facility] Rx#: [id number] Oral 118 Output: Urine 2250 350 Other: Voiding Method Indwelling Catheter Indwelling Catheter # Bowel Movements 1 - Exam Patient is awake, comfortable, no acute distress Examination of the heart S1 and S2 Examination of the lungs bilateral breath sounds are heard Decreased breath sounds at the bases Abdomen is soft nontender Examination lower extremity shows chronic skin changes with significant erythema and blistering noted on the right leg. 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 - Labs CBC & Chem 7: 12/08/24 06:32 12/08/24 06:32 Labs: Abnormal Lab Results - Last 24 Hours (Table) 12/07/24 12/07/24 12/07/24 Range/Units 12:18 12:18 17:52 WBC (4.50-10.00) 10*3/uL RBC (4.40-5.60) 10*6/uL Hgb (13.0-17.0) g/dL Hct (39.6-50.0) % Immature Gran # (0.00-0.04) 10*3/uL Neutrophils # (1.80-7.70) 10*3/uL Lymphocytes # (0.90-5.00) 10*3/uL Eosinophils # (0.04-0.35) 10*3/uL APTT 45.9 H (22.0-30.0) sec Sodium 130 L (137-145) mmol/L Carbon Dioxide (22-30) mmol/L BUN (9-20) mg/dL Creatinine (0.66-1.25) mg/dL Glucose (74-99) mg/dL POC Glucose (mg/dL) 238 H (70-110) mg/dL Hemoglobin A1c (<=6.0) % Alkaline Phosphatase (38-126) U/L Total Protein (6.3-8.2) g/dL Albumin (3.5-5.0) g/dL 12/07/24 12/07/24 12/08/24 Range/Units 20:23 21:43 06:03 WBC (4.50-10.00) 10*3/uL RBC (4.40-5.60) 10*6/uL Hgb (13.0-17.0) g/dL Hct (39.6-50.0) % Immature Gran # (0.00-0.04) 10*3/uL Neutrophils # (1.80-7.70) 10*3/uL Lymphocytes # (0.90-5.00) 10*3/uL Eosinophils # (0.04-0.35) 10*3/uL APTT (22.0-30.0) sec Sodium (137-145) mmol/L Carbon Dioxide (22-30) mmol/L BUN (9-20) mg/dL Creatinine (0.66-1.25) mg/dL Glucose (74-99) mg/dL POC Glucose (mg/dL) 174 H 174 H 165 H (70-110) mg/dL Hemoglobin A1c (<=6.0) % Alkaline Phosphatase (38-126) U/L Total Protein (6.3-8.2) g/dL Albumin (3.5-5.0) g/dL 12/08/24 12/08/24 12/08/24 Range/Units 06:32 06:32 06:32 WBC 16.44 H (4.50-10.00) 10*3/uL RBC 3.32 L (4.40-5.60) 10*6/uL Hgb 9.2 L D (13.0-17.0) g/dL Hct 27.0 L (39.6-50.0) % Immature Gran # 0.29 H (0.00-0.04) 10*3/uL Neutrophils # 14.47 H (1.80-7.70) 10*3/uL Lymphocytes # 0.71 L (0.90-5.00) 10*3/uL Eosinophils # 0.02 L (0.04-0.35) 10*3/uL APTT (22.0-30.0) sec Sodium 128 L (137-145) mmol/L Carbon Dioxide 18 L (22-30) mmol/L BUN 85 H (9-20) mg/dL Creatinine 2.65 H (0.66-1.25) mg/dL Glucose 143 H (74-99) mg/dL POC Glucose (mg/dL) (70-110) mg/dL Hemoglobin A1c 8.0 H (<=6.0) % Alkaline Phosphatase 132 H (38-126) U/L Total Protein 5.5 L (6.3-8.2) g/dL Albumin 2.8 L (3.5-5.0) g/dL 12/08/24 12/08/24 Range/Units 06:32 11:27 WBC (4.50-10.00) 10*3/uL RBC (4.40-5.60) 10*6/uL Hgb (13.0-17.0) g/dL Hct (39.6-50.0) % Immature Gran # (0.00-0.04) 10*3/uL Neutrophils # (1.80-7.70) 10*3/uL Lymphocytes # (0.90-5.00) 10*3/uL Eosinophils # (0.04-0.35) 10*3/uL APTT 31.6 H (22.0-30.0) sec Sodium (137-145) mmol/L Carbon Dioxide (22-30) mmol/L BUN (9-20) mg/dL Creatinine (0.66-1.25) mg/dL Glucose (74-99) mg/dL POC Glucose (mg/dL) 128 H (70-110) mg/dL Hemoglobin A1c (<=6.0) % Alkaline Phosphatase (38-126) U/L Total Protein (6.3-8.2) g/dL Albumin (3.5-5.0) g/dL Microbiology - Last 24 Hours (Table) 12/07/24 01:48 Blood Culture Gram Stain - Preliminary Blood Blood Culture - Preliminary Molecular ID Assessment and Plan Assessment: 1. Acute kidney injury, nonoliguric ATN associated with underlying infection, and obstructive uropathy.. Ultrasound shows mild to moderate hydronephrosis bilaterally. Currently with indwelling Cadena catheter which was placed in the ER 2. 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 Previously received Rituxan 3. Right leg cellulitis maintained on antibiotics 4. Lactic acidosis 5. Cardiomyopathy with a EF of 30 to 35% Plan: Agree with discontinuation of diuretics Continue with antibiotics Add gentle IV hydration Continue with indwelling Cadena catheter
[2024-12-08 16:34] LABS: Glucose,Whole Blood 286 mg/dL (70-110)
[2024-12-08] MEDS: SODIUM CHLORIDE 0.9% 1,000 ML IV SCH (17:09)
[2024-12-08 20:00] LABS: Glucose,Whole Blood 267 mg/dL (70-110)
--- NOTE | 2024-12-08 22:30 | P.CONS ---
History of Present Illness - Reason for Consult Consult date: 12/08/24 Bacteremia Requesting physician: Rohit Pena - Chief Complaint Abdominal pain and lower extremity swelling x 2 weeks - History of Present Illness Patient is a 74-year-old male with a past medical history significant for diabetes mellitus hypertension hyperlipidemia renal disease heart failure presenting to the hospital for generalized weakness abdominal pain and right lower extremity swelling this patient symptom has been getting worse for the last 2 days and was also complaining of some loose stools patient was describing his abdominal pain to be mostly sharp in nature moderate intensity and did have a bilateral lower extremity swelling and redness no skin breakdown or any drainage on presentation to the hospital patient did have low-grade fever of 99 F patient has been afebrile since then patient was not significantly tachycardic or hypotensive and not hypoxic not requiring any supplemental oxygen patient did have white count of 17.65 with a left shift BUN and creatinine has been elevated liver isms abnormal CRP is 40.3 urine has been positive patient blood cultures came back positive with gram-negative bacilli for the patient is currently being treated with the ceftriaxone infectious disease was consulted regarding bacteremia patient did have lower extremity Dopplers positive for DVT from the right external iliac vein to the proximal calf veins did have a CT abdominal pelvis asymmetric soft tissue swelling of the right lower extremity bilateral hydroureteronephrosis extending to the bladder correlate for bladder outlet obstruction abdominal bladder ultrasound mild left hydronephrosis Review of Systems Positive point and negatives has been mentioned in the HPI, complete review of systems was performed and all other systems are negative Past Medical History Past Medical History: Heart Failure, Diabetes Mellitus, Hyperlipidemia, Hypertension, Renal Disease Additional Past Medical History / Comment(s): Cardiomyopathy, 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 Past Psychological History: No Psychological Hx Reported Smoking Status: Former smoker Past Alcohol Use History: Rare Past Drug Use History: Marijuana - Past Family History Father Family Medical History: Diabetes Mellitus, Myocardial Infarction (VT) Additional Family Medical History / Comment(s): Had leg amputation Mother History Unknown: Yes Family Medical History: No Reported History Sister(s) Family Medical History: Diabetes Mellitus Additional Family Medical History / Comment(s): 1 sister had arm amputated due to diabetes Medications and Allergies Home Medications Medication Instructions Recorded Confirmed Type Acetaminophen Tab [Tylenol] 650 mg PO Q8H PRN 11/17/23 12/07/24 History Magnesium Oxide [Mag-Ox] 400 mg PO DAILY 11/17/23 12/07/24 History Metoprolol Tartrate [Lopressor] 50 mg PO BID-W/MEALS 11/17/23 12/07/24 History Insulin NPH Hum/Reg Insulin Hm 10 unit SQ BID 12/17/23 12/07/24 History [humuLIN 70/30 Kwikpen] predniSONE [Deltasone] 20 mg PO DAILY #30 tab 12/20/23 12/07/24 Rx mycophenolate mofetiL [Cellcept] 250 mg PO BID 04/01/24 12/07/24 History Aspirin EC [Ecotrin Low Dose] 81 mg PO DAILY 09/24/24 12/07/24 History Atorvastatin [Lipitor] 40 mg PO DAILY 09/24/24 12/07/24 History Isosorbide Mononitrate ER [Imdur] 30 mg PO DAILY 12/07/24 12/07/24 History SILVER sulfADIAZINE Cream 1 applic TOPICAL BID 12/07/24 12/07/24 History [Silvadene 1% Cream] Torsemide [Demadex] 20 mg PO BID-W/MEALS 12/07/24 12/07/24 History Allergies Allergy/AdvReac Type Severity Reaction Status Date / Time No Known Allergies Allergy Verified 12/07/24 08:12 Physical Exam Vitals: Vital Signs Temp Pulse Pulse Resp BP BP Pulse Ox 12/08/24 12:00 88 16 125/76 100 12/08/24 07:58 97.9 F 82 16 116/71 99 12/08/24 03:13 98.1 F 91 18 111/75 100 12/07/24 23:00 97.4 F L 87 18 120/79 99 12/07/24 22:00 98.4 F 89 18 127/66 100 12/07/24 20:47 98.2 F 83 16 99/77 98 12/07/24 18:00 98 18 124/81 100 12/07/24 15:46 92 18 119/88 99 12/07/24 13:38 112 H 18 124/82 100 Intake and Output 12/07/24 12/08/24 12/08/24 22:59 06:59 14:59 Intake Total 200.222 307.924 Output Total 1550 700 350 Balance -1349.778 -700 -42.076 Intake: Intake, IV Titration 200.222 189.924 Amount Heparin Sod,Pork in 0.45% 200.222 189.924 NaCl 25,000 unit In 0.45 % NaCl 1 250ml.bag @ 18 UNITS/KG/HR 14.37 mls/hr IV .[id number] [facility] Rx#: [id number] Oral 118 Output: Urine 1550 700 350 Other: Voiding Method Indwelling Catheter Indwelling Catheter Indwelling Catheter # Bowel Movements 1 1 Weight 83 kg GENERAL DESCRIPTION: Elderly male lying in bed, no distress. No tachypnea or accessory muscle of respiration use. HEENT: Shows Pallor , no scleral icterus. Oral mucous membrane is dry. NECK: Trachea central, no thyromegaly. LUNGS: Unlabored breathing. Clear to auscultation anteriorly. No wheeze or crackle. HEART: S1, S2, regular rate and rhythm. No loud murmur ABDOMEN: Soft, no tenderness , guarding or rigidity, no organomegaly EXTREMITIES: Diffuse swelling some redness of the lower extremity SKIN: No rash, no masses palpable. NEUROLOGICAL: The patient is awake, alert, oriented x3, mood and affect normal. Results CBC & Chem 7: 12/08/24 06:32 12/08/24 06:32 Labs: Abnormal Lab Results - Last 24 Hours (Table) 12/07/24 12/07/24 12/07/24 Range/Units 12:18 17:52 20:23 WBC (4.50-10.00) 10*3/uL RBC (4.40-5.60) 10*6/uL Hgb (13.0-17.0) g/dL Hct (39.6-50.0) % Immature Gran # (0.00-0.04) 10*3/uL Neutrophils # (1.80-7.70) 10*3/uL Lymphocytes # (0.90-5.00) 10*3/uL Eosinophils # (0.04-0.35) 10*3/uL APTT (22.0-30.0) sec Sodium 130 L (137-145) mmol/L Carbon Dioxide (22-30) mmol/L BUN (9-20) mg/dL Creatinine (0.66-1.25) mg/dL Glucose (74-99) mg/dL POC Glucose (mg/dL) 238 H 174 H (70-110) mg/dL Hemoglobin A1c (<=6.0) % Alkaline Phosphatase (38-126) U/L Total Protein (6.3-8.2) g/dL Albumin (3.5-5.0) g/dL 12/07/24 12/08/24 12/08/24 Range/Units 21:43 06:03 06:32 WBC (4.50-10.00) 10*3/uL RBC (4.40-5.60) 10*6/uL Hgb (13.0-17.0) g/dL Hct (39.6-50.0) % Immature Gran # (0.00-0.04) 10*3/uL Neutrophils # (1.80-7.70) 10*3/uL Lymphocytes # (0.90-5.00) 10*3/uL Eosinophils # (0.04-0.35) 10*3/uL APTT (22.0-30.0) sec Sodium (137-145) mmol/L Carbon Dioxide (22-30) mmol/L BUN (9-20) mg/dL Creatinine (0.66-1.25) mg/dL Glucose (74-99) mg/dL POC Glucose (mg/dL) 174 H 165 H (70-110) mg/dL Hemoglobin A1c 8.0 H (<=6.0) % Alkaline Phosphatase (38-126) U/L Total Protein (6.3-8.2) g/dL Albumin (3.5-5.0) g/dL 12/08/24 12/08/24 12/08/24 Range/Units 06:32 06:32 06:32 WBC 16.44 H (4.50-10.00) 10*3/uL RBC 3.32 L (4.40-5.60) 10*6/uL Hgb 9.2 L D (13.0-17.0) g/dL Hct 27.0 L (39.6-50.0) % Immature Gran # 0.29 H (0.00-0.04) 10*3/uL Neutrophils # 14.47 H (1.80-7.70) 10*3/uL Lymphocytes # 0.71 L (0.90-5.00) 10*3/uL Eosinophils # 0.02 L (0.04-0.35) 10*3/uL APTT 31.6 H (22.0-30.0) sec Sodium 128 L (137-145) mmol/L Carbon Dioxide 18 L (22-30) mmol/L BUN 85 H (9-20) mg/dL Creatinine 2.65 H (0.66-1.25) mg/dL Glucose 143 H (74-99) mg/dL POC Glucose (mg/dL) (70-110) mg/dL Hemoglobin A1c (<=6.0) % Alkaline Phosphatase 132 H (38-126) U/L Total Protein 5.5 L (6.3-8.2) g/dL Albumin 2.8 L (3.5-5.0) g/dL 12/08/24 Range/Units 11:27 WBC (4.50-10.00) 10*3/uL RBC (4.40-5.60) 10*6/uL Hgb (13.0-17.0) g/dL Hct (39.6-50.0) % Immature Gran # (0.00-0.04) 10*3/uL Neutrophils # (1.80-7.70) 10*3/uL Lymphocytes # (0.90-5.00) 10*3/uL Eosinophils # (0.04-0.35) 10*3/uL APTT (22.0-30.0) sec Sodium (137-145) mmol/L Carbon Dioxide (22-30) mmol/L BUN (9-20) mg/dL Creatinine (0.66-1.25) mg/dL Glucose (74-99) mg/dL POC Glucose (mg/dL) 128 H (70-110) mg/dL Hemoglobin A1c (<=6.0) % Alkaline Phosphatase (38-126) U/L Total Protein (6.3-8.2) g/dL Albumin (3.5-5.0) g/dL Microbiology - Last 24 Hours (Table) 12/07/24 01:48 Blood Culture Gram Stain - Preliminary Blood Blood Culture - Preliminary Molecular ID Assessment and Plan (1) UTI (urinary tract infection) Current Visit: Yes Status: Acute Code(s): N39.0 - URINARY TRACT INFECTION, SITE NOT SPECIFIED SNOMED Code(s): 90154443 (2) Positive blood cultures Current Visit: Yes Status: Acute Code(s): R78.81 - BACTEREMIA SNOMED Code(s): 412181831 Plan: 1patient with gram-negative bacteremia identified as Proteus species source is likely urinary as urine is growing the same pathogen and apparently sensitive pathogen as reported by the pharmacist with the full sensitivities are currently pending patient did have mild left-sided hydronephrosis on the ultrasound did not mention any stone or renal abscess and no evidence of any colitis 2-patient will be treated with Rocephin 2 g daily while inpatient while waiting for the final sensitivities We will follow on clinical condition and cultures to further adjust medication if needed Thank you for this consultation we will follow the patient along with you Dictation was produced using [employer] dictation software. please excuse any grammatical, word or spelling errors. Time with Patient: Greater than 30
[2024-12-09 06:03] LABS: Glucose,Whole Blood 111 mg/dL (70-110)
[2024-12-09 08:22] LABS: HCT 26.7 % (39.6-50.0); MCH 27.8 pg (27.0-32.0); MCHC 33.7 g/dL (32.0-37.0); MCV 82.4 fL (80.0-97.0); Mean Platelet Volume 10.1 fL (9.5-12.2); Platelet Count 242 10*3/uL (140-440); RBC 3.24 10*6/uL (4.40-5.60); WBC 15.25 10*3/uL (4.50-10.00)
[2024-12-09] MEDS: FAMOTIDINE 20 MG TAB PO SCH (09:25)
[2024-12-09] MEDS: HYDROmorphone 0.5 MG/0.5 ML SYRINGE IVP PRN (09:30)
[2024-12-09 09:37] LABS: African American GFR (CKD) 26 (>60 ml/min/1.73 sqM); Anion Gap 12 mmol/L; Blood Urea Nitrogen 80 mg/dL (9-20); Calcium 8.7 mg/dL (8.4-10.2); Carbon Dioxide 18 mmol/L (22-30); Chloride 100 mmol/L (98-107); Glucose 86 mg/dL (74-99); Magnesium 1.6 mg/dL (1.6-2.3); Non-African American GFR(CKD) 22 (>60 ml/min/1.73 sqM); Potassium 4.1 mmol/L (3.5-5.1); Sodium 130 mmol/L (137-145)
[2024-12-09 09:54] LABS: Anisocytosis (M) Present; Lymphocytes # (M) 0.92 k/uL (1.0-4.8); Metamyelocytes # (M) 0.46 k/uL (0); Metamyelocytes % 3 %; Monocytes # (M) 0.76 k/uL (0-1.0); Myelocytes # (M) 0.31 k/uL (0); Myelocytes % 2 %; Neutrophils # (M) 12.96 k/uL (1.3-7.7); Neutrophils % (M) 85 %; Nucleated Red Blood Cells 0 /100 WBC (0-0); Total Cells Counted 200
[2024-12-09 09:55] LABS: Large Platelets Present
--- NOTE | 2024-12-09 10:14 | P.PN ---
Subjective Progress Note Date: 12/09/24 Subjective: Patient seen and examined at bedside. No acute events overnight. Continues to have bilateral lower extremity pain, worse on the right side. Pertinent positives and negatives as discussed above, a complete review of systems was performed and all other systems are negative. Vitals Signs Reviewed. General: nontoxic, no distress, appears at stated age Derm: warm, dry, multiple vesiculobullous lesions involving the anterior surface of his right maldonado and dorsal aspect of foot. Significant erythema and edema involving the entirety of right lower extremity with clear drainage, multiple ecchymosis involving bilateral upper extremities, lesions have now draining clear discharge Head: atraumatic, normocephalic, symmetric Eyes: EOMI, no lid lag, anicteric sclera, pupils equal round reactive to light ENT: Nose and ears atraumatic Neck: No thyromegaly, supple Mouth: no lip lesion, mucus membranes moist Cardiovascular: S1S2 reg, systolic murmur, no edema Lungs: clear to auscultation bilateral, no rhonchi, no rales, no wheeze, no accessory muscle use Abdominal: soft, obese abdomen, nontender to palpation, no guarding, no appreciable organomegaly Ext: no gross muscle atrophy, muscle strength muscle strength 4 out of 5 in both lower extremities, no contractures Neuro: CN II-XII grossly intact Psych: Alert, oriented, appropriate affect Data Reviewed Today: Pertinent Labs: WBC 15.25, hemoglobin 9, sodium 130, creatinine 2.67, bicarb 18, blood sugars range between 86-2 67, magnesium 1.6 Imaging: No new imaging Assessment and Plan: Active: Acute right leg DVT Right leg cellulitis Sepsis Proteus bacteremia Urinary tract infection - Heparin drip discontinued, started on Eliquis 10 twice daily - Vanco discontinued - Blood cultures positive for Proteus, continue on IV ceftriaxone 2 g every 24 hours - ID consulted, likely Proteus secondary to urinary tract infection - Continue to hold Imdur and torsemide - Vesiculobullous rash concerning for possible CellCept induced. However, no recent changes and his CellCept dose suggest otherwise. Normocytic anemia, stable Slight hematuria - Continue to monitor CBC - On Eliquis 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 Bilateral hydroureteronephrosis Likely hypovolemic hyponatremia Hypokalemia Anion gap metabolic acidosis -Cadena catheter in place - Continue CellCept 250 twice daily, prednisone 20 daily - Nephrology following - continue to hold torsemide Elevated troponin - Likely in the setting of CKD - No active chest pain - Continue aspirin and statin Type 2 diabetes - Continue home 70/30 insulin 10 units twice daily - Sliding scale insulin, monitor for hypoglycemia Resolved: Lactic acidosis Chronic: HFrEF 30 to 35% Hypertension Dyslipidemia DVT ppx: Eliquis Code status: Full code Anticipated discharge place: Pending clinical course Anticipated discharge time: Pending clinical course Objective - Vital Signs Vital signs: Vital Signs Temp 98.6 F 12/09/24 08:00 Pulse 69 12/09/24 08:00 Resp 16 12/09/24 08:00 BP 134/73 12/09/24 08:00 Pulse Ox 92 L 12/09/24 08:00 FiO2 Intake & Output 12/08/24 12/09/24 12/09/24 18:59 06:59 18:59 Intake Total 604.000 207.567 240 Output Total 650 400 Balance -46.000 -192.433 240 Weight 87 kg Intake: Intake, IV Titration 250.000 207.567 Amount Heparin Sod,Pork in 0.45% 250.000 207.567 NaCl 25,000 unit In 0.45 % NaCl 1 250ml.bag @ 18 UNITS/KG/HR 14.37 mls/hr IV .[id number] [facility] Rx#: [id number] Oral 354 240 Output: Urine 650 400 Other: Voiding Method Indwelling Catheter Indwelling Catheter - Labs CBC & Chem 7: 12/09/24 07:47 12/09/24 07:47 Labs: Abnormal Lab Results - Last 24 Hours (Table) 12/08/24 12/08/24 12/08/24 Range/Units 06:32 11:27 16:32 WBC (4.50-10.00) 10*3/uL RBC (4.40-5.60) 10*6/uL Hgb (13.0-17.0) g/dL Hct (39.6-50.0) % Immature Gran # (0.00-0.04) 10*3/uL Neutrophils # (Manual) (1.3-7.7) k/uL Lymphocytes # (Manual) (1.0-4.8) k/uL Metamyelocytes # (Man) (0) k/uL Myelocytes # (Manual) (0) k/uL APTT (22.0-30.0) sec Sodium (137-145) mmol/L Carbon Dioxide (22-30) mmol/L BUN (9-20) mg/dL Creatinine (0.66-1.25) mg/dL POC Glucose (mg/dL) 128 H 286 H (70-110) mg/dL Hemoglobin A1c 8.0 H (<=6.0) % 12/08/24 12/08/24 12/09/24 Range/Units 19:59 23:22 06:01 WBC (4.50-10.00) 10*3/uL RBC (4.40-5.60) 10*6/uL Hgb (13.0-17.0) g/dL Hct (39.6-50.0) % Immature Gran # (0.00-0.04) 10*3/uL Neutrophils # (Manual) (1.3-7.7) k/uL Lymphocytes # (Manual) (1.0-4.8) k/uL Metamyelocytes # (Man) (0) k/uL Myelocytes # (Manual) (0) k/uL APTT 62.6 H (22.0-30.0) sec Sodium (137-145) mmol/L Carbon Dioxide (22-30) mmol/L BUN (9-20) mg/dL Creatinine (0.66-1.25) mg/dL POC Glucose (mg/dL) 267 H 111 H (70-110) mg/dL Hemoglobin A1c (<=6.0) % 12/09/24 12/09/24 12/09/24 Range/Units 07:47 07:47 07:47 WBC 15.25 H (4.50-10.00) 10*3/uL RBC 3.24 L (4.40-5.60) 10*6/uL Hgb 9.0 L (13.0-17.0) g/dL Hct 26.7 L (39.6-50.0) % Immature Gran # 0.80 H (0.00-0.04) 10*3/uL Neutrophils # (Manual) 12.96 H (1.3-7.7) k/uL Lymphocytes # (Manual) 0.92 L (1.0-4.8) k/uL Metamyelocytes # (Man) 0.46 H (0) k/uL Myelocytes # (Manual) 0.31 H (0) k/uL APTT 54.1 H (22.0-30.0) sec Sodium 130 L (137-145) mmol/L Carbon Dioxide 18 L (22-30) mmol/L BUN 80 H (9-20) mg/dL Creatinine 2.67 H (0.66-1.25) mg/dL POC Glucose (mg/dL) (70-110) mg/dL Hemoglobin A1c (<=6.0) % Microbiology - Last 24 Hours (Table) 12/07/24 01:48 Blood Culture Gram Stain - Preliminary Blood Blood Culture - Preliminary Proteus mirabilis Molecular ID 12/07/24 05:58 Urine Culture - Preliminary Urine,Voided Gram Neg Bacilli
[2024-12-09 11:39] LABS: Glucose,Whole Blood 146 mg/dL (70-110)
[2024-12-09] MEDS: Apixaban Initiation Dose--VTE 5 MG TAB PO SCH (12:08)
--- NOTE | 2024-12-09 12:14 | P.PN ---
Subjective Progress Note Date: 12/09/24 Principal diagnosis: Reason for follow-up is Proteus UTI and bacteremia Patient is a 74-year-old male with a past medical history significant for diabetes mellitus hypertension hyperlipidemia renal disease heart failure presenting to the hospital for generalized weakness abdominal pain and right lower extremity swelling, patient did have positive blood culture with the Proteus prompting this consultation. On today's evaluation that is 12/09/2024,the patient denies any fever or any chills, patient is breathing comfortably on room air, the patient denies chest pain shortness of breath and no significant cough, patient denies abdominal pain, no nausea vomiting or diarrhea. Denies any worsening pain to the right lower extremity. Patient white count slightly down to 15.25 creatinine is 2.67 blood and urine with gram-negative Objective - Vital Signs Vital signs: Vital Signs Temp 98.6 F 12/09/24 08:00 Pulse 69 12/09/24 08:00 Resp 16 12/09/24 08:00 BP 134/73 12/09/24 08:00 Pulse Ox 92 L 12/09/24 08:00 FiO2 Intake & Output 12/08/24 12/09/24 12/09/24 18:59 06:59 18:59 Intake Total 604.000 207.567 240 Output Total 650 400 800 Balance -46.000 -192.433 -560 Weight 87 kg Intake: Intake, IV Titration 250.000 207.567 Amount Heparin Sod,Pork in 0.45% 250.000 207.567 NaCl 25,000 unit In 0.45 % NaCl 1 250ml.bag @ 18 UNITS/KG/HR 14.37 mls/hr IV .[id number] [facility] Rx#: [id number] Oral 354 240 Output: Urine 650 400 800 Other: Voiding Method Indwelling Catheter Indwelling Catheter Indwelling Catheter # Bowel Movements 1 - Exam GENERAL DESCRIPTION: An elderly male lying in bed in no distress RESPIRATORY SYSTEM: Unlabored breathing , decreased breath sounds at bases HEART: S1 S2 regular rate and rhythm , ABDOMEN: Soft , no tenderness EXTREMITIES: Right lower extremity diffuse swelling and some blisters - Labs CBC & Chem 7: 12/09/24 07:47 12/09/24 07:47 Labs: Abnormal Lab Results - Last 24 Hours (Table) 12/08/24 12/08/24 12/08/24 Range/Units 16:32 19:59 23:22 WBC (4.50-10.00) 10*3/uL RBC (4.40-5.60) 10*6/uL Hgb (13.0-17.0) g/dL Hct (39.6-50.0) % Immature Gran # (0.00-0.04) 10*3/uL Neutrophils # (Manual) (1.3-7.7) k/uL Lymphocytes # (Manual) (1.0-4.8) k/uL Metamyelocytes # (Man) (0) k/uL Myelocytes # (Manual) (0) k/uL APTT 62.6 H (22.0-30.0) sec Sodium (137-145) mmol/L Carbon Dioxide (22-30) mmol/L BUN (9-20) mg/dL Creatinine (0.66-1.25) mg/dL POC Glucose (mg/dL) 286 H 267 H (70-110) mg/dL 12/09/24 12/09/24 12/09/24 Range/Units 06:01 07:47 07:47 WBC 15.25 H (4.50-10.00) 10*3/uL RBC 3.24 L (4.40-5.60) 10*6/uL Hgb 9.0 L (13.0-17.0) g/dL Hct 26.7 L (39.6-50.0) % Immature Gran # 0.80 H (0.00-0.04) 10*3/uL Neutrophils # (Manual) 12.96 H (1.3-7.7) k/uL Lymphocytes # (Manual) 0.92 L (1.0-4.8) k/uL Metamyelocytes # (Man) 0.46 H (0) k/uL Myelocytes # (Manual) 0.31 H (0) k/uL APTT (22.0-30.0) sec Sodium 130 L (137-145) mmol/L Carbon Dioxide 18 L (22-30) mmol/L BUN 80 H (9-20) mg/dL Creatinine 2.67 H (0.66-1.25) mg/dL POC Glucose (mg/dL) 111 H (70-110) mg/dL 12/09/24 12/09/24 Range/Units 07:47 11:35 WBC (4.50-10.00) 10*3/uL RBC (4.40-5.60) 10*6/uL Hgb (13.0-17.0) g/dL Hct (39.6-50.0) % Immature Gran # (0.00-0.04) 10*3/uL Neutrophils # (Manual) (1.3-7.7) k/uL Lymphocytes # (Manual) (1.0-4.8) k/uL Metamyelocytes # (Man) (0) k/uL Myelocytes # (Manual) (0) k/uL APTT 54.1 H (22.0-30.0) sec Sodium (137-145) mmol/L Carbon Dioxide (22-30) mmol/L BUN (9-20) mg/dL Creatinine (0.66-1.25) mg/dL POC Glucose (mg/dL) 146 H (70-110) mg/dL Microbiology - Last 24 Hours (Table) 12/07/24 01:48 Blood Culture Gram Stain - Preliminary Blood Blood Culture - Preliminary Proteus mirabilis Molecular ID 12/07/24 05:58 Urine Culture - Preliminary Urine,Voided Gram Neg Bacilli Assessment and Plan (1) UTI (urinary tract infection) Current Visit: Yes Status: Acute Code(s): N39.0 - URINARY TRACT INFECTION, SITE NOT SPECIFIED SNOMED Code(s): 63026757 (2) Positive blood cultures Current Visit: Yes Status: Acute Code(s): R78.81 - BACTEREMIA SNOMED Code(s): 190671020 (3) Cellulitis of right leg Current Visit: Yes Status: Acute Code(s): L03.115 - CELLULITIS OF RIGHT LOWER LIMB SNOMED Code(s): 74699524937098331 Plan: 1patient with gram-negative bacteremia identified as Proteus species source is likely urinary as urine is growing the same pathogen and apparently sensitive pathogen as reported by the pharmacist with the full sensitivities are currently pending patient did have mild left-sided hydronephrosis on the ultrasound did not mention any stone or renal abscess and no evidence of any colitis 2patient also have swelling and redness of right lower extremity concerning for possible component of cellulitis likely from gram-positive skin rl/instep 3the patient is afebrile white count is trending down to continue Rocephin 2 g daily while inpatient while waiting for the final sensitivities Dictation was produced using [employer] dictation software. please excuse any grammatical, word or spelling errors. Time with Patient: Less than 30
[2024-12-09 16:35] LABS: Glucose,Whole Blood 170 mg/dL (70-110)
[2024-12-09 20:10] LABS: Glucose,Whole Blood 210 mg/dL (70-110)
--- NOTE | 2024-12-09 21:23 | P.PN ---
Subjective Patient is seen for follow-up of chronic kidney disease and acute kidney injury. No significant complaints today. Overall feeling better Serum creatinine at 2.6 mg/dL No nausea or vomiting Started on IV fluids yesterday. Diuretics on hold. Objective - Vital Signs Vital signs: Vital Signs Temp 98.4 F 12/09/24 19:40 Pulse 84 12/09/24 19:40 Resp 18 12/09/24 19:40 BP 113/70 12/09/24 19:40 Pulse Ox 99 12/09/24 19:40 FiO2 Intake & Output 12/09/24 12/09/24 12/10/24 06:59 18:59 06:59 Intake Total 207.567 476 Output Total 400 1700 Balance -192.433 -1224 Weight 87 kg Intake: Intake, IV Titration 207.567 Amount Heparin Sod,Pork in 0.45% 207.567 NaCl 25,000 unit In 0.45 % NaCl 1 250ml.bag @ 18 UNITS/KG/HR 14.37 mls/hr IV [id number] Rx#: [id number] Oral 476 Output: Urine 400 1700 Other: Voiding Method Indwelling Catheter Indwelling Catheter # Bowel Movements 1 - Exam Patient is awake, comfortable, no acute distress Examination of the heart S1 and S2 Examination of the lungs bilateral breath sounds are heard Decreased breath sounds at the bases Abdomen is soft nontender Examination lower extremity shows chronic skin changes with significant erythema and blistering noted on the right leg. Blisters have ruptured [employer] exam grossly intact - Labs CBC & Chem 7: 12/09/24 07:47 12/09/24 07:47 Labs: Abnormal Lab Results - Last 24 Hours (Table) 12/08/24 12/09/24 12/09/24 Range/Units 23:22 06:01 07:47 WBC (4.50-10.00) 10*3/uL RBC (4.40-5.60) 10*6/uL Hgb (13.0-17.0) g/dL Hct (39.6-50.0) % Immature Gran # (0.00-0.04) 10*3/uL Neutrophils # (Manual) (1.3-7.7) k/uL Lymphocytes # (Manual) (1.0-4.8) k/uL Metamyelocytes # (Man) (0) k/uL Myelocytes # (Manual) (0) k/uL APTT 62.6 H (22.0-30.0) sec Sodium 130 L (137-145) mmol/L Carbon Dioxide 18 L (22-30) mmol/L BUN 80 H (9-20) mg/dL Creatinine 2.67 H (0.66-1.25) mg/dL POC Glucose (mg/dL) 111 H (70-110) mg/dL 12/09/24 12/09/24 12/09/24 Range/Units 07:47 07:47 11:35 WBC 15.25 H (4.50-10.00) 10*3/uL RBC 3.24 L (4.40-5.60) 10*6/uL Hgb 9.0 L (13.0-17.0) g/dL Hct 26.7 L (39.6-50.0) % Immature Gran # 0.80 H (0.00-0.04) 10*3/uL Neutrophils # (Manual) 12.96 H (1.3-7.7) k/uL Lymphocytes # (Manual) 0.92 L (1.0-4.8) k/uL Metamyelocytes # (Man) 0.46 H (0) k/uL Myelocytes # (Manual) 0.31 H (0) k/uL APTT 54.1 H (22.0-30.0) sec Sodium (137-145) mmol/L Carbon Dioxide (22-30) mmol/L BUN (9-20) mg/dL Creatinine (0.66-1.25) mg/dL POC Glucose (mg/dL) 146 H (70-110) mg/dL 12/09/24 12/09/24 Range/Units 16:30 20:09 WBC (4.50-10.00) 10*3/uL RBC (4.40-5.60) 10*6/uL Hgb (13.0-17.0) g/dL Hct (39.6-50.0) % Immature Gran # (0.00-0.04) 10*3/uL Neutrophils # (Manual) (1.3-7.7) k/uL Lymphocytes # (Manual) (1.0-4.8) k/uL Metamyelocytes # (Man) (0) k/uL Myelocytes # (Manual) (0) k/uL APTT (22.0-30.0) sec Sodium (137-145) mmol/L Carbon Dioxide (22-30) mmol/L BUN (9-20) mg/dL Creatinine (0.66-1.25) mg/dL POC Glucose (mg/dL) 170 H 210 H (70-110) mg/dL Microbiology - Last 24 Hours (Table) 12/07/24 05:58 Urine Culture - Final Urine,Voided Proteus mirabilis 12/07/24 01:48 Blood Culture Gram Stain - Preliminary Blood Blood Culture - Preliminary Proteus mirabilis Molecular ID Assessment and Plan Assessment: 1. Acute kidney injury, nonoliguric ATN associated with underlying infection, and obstructive uropathy.. Ultrasound shows mild to moderate hydronephrosis bilaterally. Currently with indwelling Cadena catheter which was placed in the ER 2. 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 Previously received Rituxan 3. Right leg cellulitis maintained on antibiotics 4. Lactic acidosis 5. Cardiomyopathy with a EF of 30 to 35% Plan: Agree with discontinuation of diuretics Continue with antibiotics Continue with IV fluids Continue with indwelling Cadena catheter
[2024-12-10 06:01] LABS: Glucose,Whole Blood 127 mg/dL (70-110)
[2024-12-10 07:54] LABS: HCT 23.4 % (39.6-50.0); HGB 7.6 g/dL (13.0-17.0); MCHC 32.5 g/dL (32.0-37.0); MCV 83.3 fL (80.0-97.0); Platelet Count 233 10*3/uL (140-440); RBC 2.81 10*6/uL (4.40-5.60); RDW 16.4 % (11.5-14.5); WBC 12.67 10*3/uL (4.50-10.00)
[2024-12-10 08:05] LABS: ALT 32 U/L (4-49); AST 18 U/L (17-59); African American GFR (CKD) 31 (>60 ml/min/1.73 sqM); Albumin 2.5 g/dL (3.5-5.0); Alkaline Phosphatase 105 U/L (38-126); Anion Gap 11 mmol/L; Blood Urea Nitrogen 71 mg/dL (9-20); Calcium 8.5 mg/dL (8.4-10.2); Carbon Dioxide 18 mmol/L (22-30); Chloride 103 mmol/L (98-107); Glucose 90 mg/dL (74-99); Magnesium 1.6 mg/dL (1.6-2.3); Non-African American GFR(CKD) 27 (>60 ml/min/1.73 sqM); Sodium 132 mmol/L (137-145); Total Bilirubin 0.3 mg/dL (0.2-1.3); Total Protein 5.1 g/dL (6.3-8.2)
--- NOTE | 2024-12-10 09:36 | P.PN ---
Subjective Progress Note Date: 12/10/24 Subjective: Patient seen and examined at bedside. No acute events overnight. Claims that lower extremity pain has improved. Pertinent positives and negatives as discussed above, a complete review of systems was performed and all other systems are negative. Vitals Signs Reviewed. General: nontoxic, no distress, appears at stated age Derm: warm, dry, multiple vesiculobullous lesions involving the anterior surface of his right maldonado and dorsal aspect of foot. Significant erythema and e bre involving the entirety of right lower extremity with clear drainage, multiple ecchymosis involving bilateral upper extremities, lesions have now draining clear discharge Head: atraumatic, normocephalic, symmetric Eyes: EOMI, no lid lag, anicteric sclera, pupils equal round reactive to light ENT: Nose and ears atraumatic Neck: No thyromegaly, supple Mouth: no lip lesion, mucus membranes moist Cardiovascular: S1S2 reg, systolic murmur, no edema Lungs: clear to auscultation bilateral, no rhonchi, no rales, no wheeze, no accessory muscle use Abdominal: soft, obese abdomen, nontender to palpation, no guarding, no appreciable organomegaly Ext: no gross muscle atrophy, muscle strength muscle strength 4 out of 5 in both lower extremities, no contractures Neuro: CN II-XII grossly intact Psych: Alert, oriented, appropriate affect Data Reviewed Today: Pertinent Labs: WBC 12.67, hemoglobin 7.6, platelet 233, sodium 132, bicarb 18, creatinine 2.28, blood sugars range between 127-210, magnesium 1.6 Imaging: No new imaging Assessment and Plan: Active: Acute right leg DVT Right leg cellulitis Sepsis Proteus bacteremia Urinary tract infection - Continue on Eliquis 10 twice daily - continue on IV ceftriaxone 2 g every 24 hours - ID consulted, likely Proteus secondary to urinary tract infection - Continue to hold Imdur and torsemide - Vesiculobullous rash concerning for possible CellCept induced. However, no recent changes and his CellCept dose suggest otherwise. 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 Bilateral hydroureteronephrosis hypovolemic hyponatremia, improving Hypokalemia, resolved Anion gap metabolic acidosis, improving -Cadena catheter in place - Continue CellCept 250 twice daily, prednisone 20 daily - Nephrology following - continue to hold torsemide -Continue on normal saline 70 cc an hour Elevated troponin - Likely in the setting of CKD - No active chest pain - Continue aspirin and statin Type 2 diabetes - Continue home 70/30 insulin 10 units twice daily - Sliding scale insulin, monitor for hypoglycemia Resolved: Lactic acidosis Chronic: HFrEF 30 to 35% Hypertension Dyslipidemia DVT ppx: Eliquis Code status: Full code Anticipated discharge place: Pending PT evaluation Anticipated discharge time: Pending clinical course Objective - Vital Signs Vital signs: Vital Signs Temp 98 F 12/10/24 08:00 Pulse 79 12/10/24 08:00 Resp 16 12/10/24 08:00 BP 105/68 12/10/24 08:00 Pulse Ox 100 12/10/24 08:00 FiO2 Intake & Output 12/09/24 12/10/24 12/10/24 18:59 06:59 18:59 Intake Total 476 1014 Output Total 1700 1275 Balance -1224 -1275 1014 Weight 89 kg Intake: Oral 476 1014 Output: Urine 1700 1275 Other: Voiding Method Indwelling Catheter Indwelling Catheter # Bowel Movements 1 - Labs CBC & Chem 7: 12/10/24 07:09 12/10/24 07:09 Labs: Abnormal Lab Results - Last 24 Hours (Table) 12/09/24 12/09/24 12/09/24 Range/Units 07:47 07:47 11:35 WBC (4.50-10.00) 10*3/uL RBC (4.40-5.60) 10*6/uL Hgb (13.0-17.0) g/dL Hct (39.6-50.0) % Neutrophils # (Manual) 12.96 H (1.3-7.7) k/uL Lymphocytes # (Manual) 0.92 L (1.0-4.8) k/uL Metamyelocytes # (Man) 0.46 H (0) k/uL Myelocytes # (Manual) 0.31 H (0) k/uL Sodium 130 L (137-145) mmol/L Carbon Dioxide 18 L (22-30) mmol/L BUN 80 H (9-20) mg/dL Creatinine 2.67 H (0.66-1.25) mg/dL POC Glucose (mg/dL) 146 H (70-110) mg/dL Total Protein (6.3-8.2) g/dL Albumin (3.5-5.0) g/dL 12/09/24 12/09/24 12/10/24 Range/Units 16:30 20:09 05:59 WBC (4.50-10.00) 10*3/uL RBC (4.40-5.60) 10*6/uL Hgb (13.0-17.0) g/dL Hct (39.6-50.0) % Neutrophils # (Manual) (1.3-7.7) k/uL Lymphocytes # (Manual) (1.0-4.8) k/uL Metamyelocytes # (Man) (0) k/uL Myelocytes # (Manual) (0) k/uL Sodium (137-145) mmol/L Carbon Dioxide (22-30) mmol/L BUN (9-20) mg/dL Creatinine (0.66-1.25) mg/dL POC Glucose (mg/dL) 170 H 210 H 127 H (70-110) mg/dL Total Protein (6.3-8.2) g/dL Albumin (3.5-5.0) g/dL 12/10/24 12/10/24 Range/Units 07:09 07:09 WBC 12.67 H (4.50-10.00) 10*3/uL RBC 2.81 L (4.40-5.60) 10*6/uL Hgb 7.6 L (13.0-17.0) g/dL Hct 23.4 L (39.6-50.0) % Neutrophils # (Manual) (1.3-7.7) k/uL Lymphocytes # (Manual) (1.0-4.8) k/uL Metamyelocytes # (Man) (0) k/uL Myelocytes # (Manual) (0) k/uL Sodium 132 L (137-145) mmol/L Carbon Dioxide 18 L (22-30) mmol/L BUN 71 H (9-20) mg/dL Creatinine 2.28 H (0.66-1.25) mg/dL POC Glucose (mg/dL) (70-110) mg/dL Total Protein 5.1 L (6.3-8.2) g/dL Albumin 2.5 L (3.5-5.0) g/dL Microbiology - Last 24 Hours (Table) 12/07/24 05:58 Urine Culture - Final Urine,Voided Proteus mirabilis 12/07/24 01:48 Blood Culture Gram Stain - Preliminary Blood Blood Culture - Preliminary Proteus mirabilis Molecular ID
[2024-12-10 11:35] LABS: Glucose,Whole Blood 153 mg/dL (70-110)
--- NOTE | 2024-12-10 13:57 | CDI ---
Documentation Clarification Form Date: 12/10/2024 12:23:00 PM From: Anna Awad RN, CCDS Phone: [phone] Admit Date: 12/07/2024 05:49:00 AM Patient Name: Nadeem Moreno Visit Number: [id number] Discharge Date: ATTENTION: The Clinical Documentation Specialists (CDI) and [facility] Coding Staff appreciate your assistance in clarifying documentation. Please respond to the clarification below the line at the bottom and electronically sign. The CDI & [facility] Coding staff will review the response and follow-up if needed. Please note: Queries are made part of the Legal Health Record. If you have any questions, please contact the author of this message via ITS. DoctorCesar Loomis Cellulitis is documented in the ER assessment Medicine H/P and progress notes and ID progress notes. Additional clarification regarding the type of cellulitis is requested. History/risk factors: Heart Failure, Diabetes Mellitus, Hypertension, Renal Disease Clinical Indicators: 74-year-old male past medical history of diabetes presenting today with right lower extremity swelling for the last 2 days. He has erythema extending up the right lower extremity, bullae present. 12/07 Nursing wound care: Bilateral lower leg. Edema Type: Non-pitting. Skin Temperature Warm Skin Color: Erythema 12/09 Nursing wound care: Right maldonado: moderate drainage Foul odor dressing change saline irrigation. 12/07 Blood culture Proteus mirabilis Treatment: Rocephin 2 GM IVPB Q 24 HRS 12/08-12/10 Vancomycin HCl 1,500 MG IVPB Once 12/07 and Once 12/08 Zosyn 3.375 GM IVPB Once 12/07 .9 NS 70 CC HR Please clarify the etiology of the cellulitis, if known: [ ] Cellulitis is a diabetic skin complication [ x ] Cellulitis is not a diabetic skin complication [ ] Other, please specify: [ ] Unable to determine (Template Last Revised: July 2022) MTDD
--- NOTE | 2024-12-10 14:44 | P.PN ---
Subjective Patient is seen for follow-up of chronic kidney disease and acute kidney injury. No significant complaints today. Overall feeling better Serum creatinine at 2.28 mg/dL Maintained on IV fluids. Hemoglobin dropped to 7.6 g/dL today. No active bleeding noted Objective - Vital Signs Vital signs: Vital Signs Temp 98 F 12/10/24 08:00 Pulse 63 12/10/24 12:00 Resp 16 12/10/24 12:00 BP 125/76 12/10/24 12:00 Pulse Ox 95 12/10/24 12:00 FiO2 Intake & Output 12/09/24 12/10/24 12/10/24 18:59 06:59 18:59 Intake Total 476 1014 Output Total 1700 1275 Balance -1224 -1275 1014 Weight 89 kg Intake: Oral 476 1014 Output: Urine 1700 1275 Other: Voiding Method Indwelling Catheter Indwelling Catheter Indwelling Catheter # Bowel Movements 1 - Exam Patient is awake, comfortable, no acute distress Examination of the heart S1 and S2 Examination of the lungs bilateral breath sounds are heard Decreased breath sounds at the bases Abdomen is soft nontender Examination lower extremity shows chronic skin changes with significant erythema and blistering noted on the right leg. Blisters have ruptured [employer] exam grossly intact - Labs CBC & Chem 7: 12/10/24 07:09 12/10/24 07:09 Labs: Abnormal Lab Results - Last 24 Hours (Table) 12/09/24 12/09/24 12/10/24 Range/Units 16:30 20:09 05:59 WBC (4.50-10.00) 10*3/uL RBC (4.40-5.60) 10*6/uL Hgb (13.0-17.0) g/dL Hct (39.6-50.0) % Sodium (137-145) mmol/L Carbon Dioxide (22-30) mmol/L BUN (9-20) mg/dL Creatinine (0.66-1.25) mg/dL POC Glucose (mg/dL) 170 H 210 H 127 H (70-110) mg/dL Total Protein (6.3-8.2) g/dL Albumin (3.5-5.0) g/dL 12/10/24 12/10/24 12/10/24 Range/Units 07:09 07:09 11:33 WBC 12.67 H (4.50-10.00) 10*3/uL RBC 2.81 L (4.40-5.60) 10*6/uL Hgb 7.6 L (13.0-17.0) g/dL Hct 23.4 L (39.6-50.0) % Sodium 132 L (137-145) mmol/L Carbon Dioxide 18 L (22-30) mmol/L BUN 71 H (9-20) mg/dL Creatinine 2.28 H (0.66-1.25) mg/dL POC Glucose (mg/dL) 153 H (70-110) mg/dL Total Protein 5.1 L (6.3-8.2) g/dL Albumin 2.5 L (3.5-5.0) g/dL Microbiology - Last 24 Hours (Table) 12/07/24 01:48 Blood Culture Gram Stain - Final Blood Blood Culture - Final Proteus mirabilis Molecular ID 12/07/24 05:58 Urine Culture - Final Urine,Voided Proteus mirabilis Assessment and Plan Assessment: 1. Acute kidney injury, nonoliguric ATN associated with underlying infection, and obstructive uropathy.. Ultrasound shows mild to moderate hydronephrosis bilaterally. Currently with indwelling Cadena catheter which was placed in the ER 2. Chronic kidney disease secondary to biopsy-proven crescentic glomerulon ephritis maintained on CellCept and prednisone. Previously received Rituxan 3. Right leg cellulitis maintained on antibiotics 4. Lactic acidosis 5. Cardiomyopathy with a EF of 30 to 35% 6. Anemia with significant drop in hemoglobin since admission, rule out GI bleed. Check stool for occult blood and Pepcid dose will be increased. No active bleeding noted at this time Plan: Check stool for occult blood Check iron profile Add iron labs Increase Pepcid Consider adding proton pump inhibitors Continue with antibiotics Continue with IV fluids Continue with indwelling Cadena catheter
[2024-12-10 15:25] LABS: Reticulocyte % 1.3 % (0.10-1.80)
[2024-12-10 16:20] LABS: Glucose,Whole Blood 180 mg/dL (70-110)
--- NOTE | 2024-12-10 16:34 | P.PN ---
Subjective Progress Note Date: 12/10/24 Principal diagnosis: Reason for follow-up is Proteus UTI and bacteremia Patient is a 74-year-old male with a past medical history significant for diabetes mellitus hypertension hyperlipidemia renal disease heart failure presenting to the hospital for generalized weakness abdominal pain and right lower extremity swelling, patient did have positive blood culture with the Proteus prompting this consultation. On today's evaluation that is 12/10/2024,the patient remains to be afebrile, patient is on room air not requiring supplemental oxygen and denies any shortness of breath no chest pain or cough.Patient denies having any nausea or vomiting, no abdominal pain and no diarrhea, denies pain to the right lower extremity. Patient white count is down to 12.67, creatinine is 2.28 blood and urine with a Proteus sensitive to ceftriaxone as well as cefazolin Objective - Vital Signs Vital signs: Vital Signs Temp 98 F 12/10/24 08:00 Pulse 63 12/10/24 12:00 Resp 16 12/10/24 12:00 BP 125/76 12/10/24 12:00 Pulse Ox 95 12/10/24 12:00 FiO2 Intake & Output 12/09/24 12/10/24 12/10/24 18:59 06:59 18:59 Intake Total 476 1014 Output Total 1700 1275 Balance -1224 -1275 1014 Weight 89 kg Intake: Oral 476 1014 Output: Urine 1700 1275 Other: Voiding Method Indwelling Catheter Indwelling Catheter Indwelling Catheter # Bowel Movements 1 - Exam GENERAL DESCRIPTION: An elderly male lying in bed in no distress RESPIRATORY SYSTEM: Unlabored breathing , decreased breath sounds at bases HEART: S1 S2 regular rate and rhythm , ABDOMEN: Soft , no tenderness EXTREMITIES: Right lower extremity diffuse swelling and some blisters - Labs CBC & Chem 7: 12/10/24 07:09 12/10/24 07:09 Labs: Abnormal Lab Results - Last 24 Hours (Table) 12/09/24 12/09/24 12/10/24 Range/Units 16:30 20:09 05:59 WBC (4.50-10.00) 10*3/uL RBC (4.40-5.60) 10*6/uL Hgb (13.0-17.0) g/dL Hct (39.6-50.0) % Sodium (137-145) mmol/L Carbon Dioxide (22-30) mmol/L BUN (9-20) mg/dL Creatinine (0.66-1.25) mg/dL POC Glucose (mg/dL) 170 H 210 H 127 H (70-110) mg/dL Iron (65-175) UG/DL TIBC (228-460) UG/DL Transferrin (204.0-354.0) mg/dL Ferritin (22.0-322.0) ng/mL Total Protein (6.3-8.2) g/dL Albumin (3.5-5.0) g/dL 12/10/24 12/10/24 12/10/24 Range/Units 07:09 07:09 09:37 WBC 12.67 H (4.50-10.00) 10*3/uL RBC 2.81 L (4.40-5.60) 10*6/uL Hgb 7.6 L (13.0-17.0) g/dL Hct 23.4 L (39.6-50.0) % Sodium 132 L (137-145) mmol/L Carbon Dioxide 18 L (22-30) mmol/L BUN 71 H (9-20) mg/dL Creatinine 2.28 H (0.66-1.25) mg/dL POC Glucose (mg/dL) (70-110) mg/dL Iron 42 L (65-175) UG/DL TIBC 200 L (228-460) UG/DL Transferrin 143.0 L (204.0-354.0) mg/dL Ferritin 652.0 H (22.0-322.0) ng/mL Total Protein 5.1 L (6.3-8.2) g/dL Albumin 2.5 L (3.5-5.0) g/dL 12/10/24 12/10/24 12/10/24 Range/Units 09:37 11:33 16:18 WBC (4.50-10.00) 10*3/uL RBC (4.40-5.60) 10*6/uL Hgb (13.0-17.0) g/dL Hct (39.6-50.0) % Sodium (137-145) mmol/L Carbon Dioxide (22-30) mmol/L BUN (9-20) mg/dL Creatinine (0.66-1.25) mg/dL POC Glucose (mg/dL) 153 H 180 H (70-110) mg/dL Iron (65-175) UG/DL TIBC (228-460) UG/DL Transferrin 144.0 L (204.0-354.0) mg/dL Ferritin (22.0-322.0) ng/mL Total Protein (6.3-8.2) g/dL Albumin (3.5-5.0) g/dL Microbiology - Last 24 Hours (Table) 12/07/24 01:48 Blood Culture Gram Stain - Final Blood Blood Culture - Final Proteus mirabilis Molecular ID 12/07/24 05:58 Urine Culture - Final Urine,Voided Proteus mirabilis Assessment and Plan (1) UTI (urinary tract infection) Current Visit: Yes Status: Acute Code(s): N39.0 - URINARY TRACT INFECTION, SITE NOT SPECIFIED SNOMED Code(s): 44040773 (2) Positive blood cultures Current Visit: Yes Status: Acute Code(s): R78.81 - BACTEREMIA SNOMED Code(s): 499603847 (3) Cellulitis of right leg Current Visit: Yes Status: Acute Code(s): L03.115 - CELLULITIS OF RIGHT LOWER LIMB SNOMED Code(s): 05684892522739301 Plan: 1patient with gram-negative bacteremia identified as Proteus species source is likely urinary as urine is growing the same pathogen and apparently sensitive pathogen as reported by the pharmacist with the full sensitivities are currently pending patient did have mild left-sided hydronephrosis on the ultrasound did not mention any stone or renal abscess and no evidence of any colitis 2patient also have swelling and redness of right lower extremity concerning for possible component of cellulitis, not related to his diabetes 3the patient is afebrile white count is trending down, we will treat the patient with Rocephin finishing therapy with oral Keflex when stable for discharge Dictation was produced using [employer] dictation software. please excuse any grammatical, word or spelling errors. Time with Patient: Less than 30
[2024-12-10] MEDS: DARBEPOETIN ALFA 60 MCG/0.3 ML SYRINGE SQ SCH (17:53)
[2024-12-10 20:05] LABS: Glucose,Whole Blood 251 mg/dL (70-110)
[2024-12-11 06:00] LABS: Glucose,Whole Blood 198 mg/dL (70-110)
[2024-12-11 07:51] LABS: HCT 23.2 % (39.6-50.0); HGB 7.7 g/dL (13.0-17.0); MCH 27.7 pg (27.0-32.0); MCHC 33.2 g/dL (32.0-37.0); MCV 83.5 fL (80.0-97.0); Mean Platelet Volume 10.5 fL (9.5-12.2); Platelet Count 234 10*3/uL (140-440); RBC 2.78 10*6/uL (4.40-5.60); RDW 16.5 % (11.5-14.5); WBC 14.75 10*3/uL (4.50-10.00)
[2024-12-11 08:03] LABS: African American GFR (CKD) 38 (>60 ml/min/1.73 sqM); Anion Gap 7 mmol/L; Blood Urea Nitrogen 61 mg/dL (9-20); Calcium 8.2 mg/dL (8.4-10.2); Carbon Dioxide 17 mmol/L (22-30); Chloride 108 mmol/L (98-107); Glucose 161 mg/dL (74-99); Magnesium 1.4 mg/dL (1.6-2.3); Non-African American GFR(CKD) 32 (>60 ml/min/1.73 sqM); Potassium 3.8 mmol/L (3.5-5.1); Sodium 132 mmol/L (137-145)
[2024-12-11] MEDS: FAMOTIDINE 20 MG TAB PO SCH (08:13)
[2024-12-11] MEDS: LACTATED RINGERS 1,000 ML IV SCH (09:52)
[2024-12-11] MEDS: SODIUM BICARBONATE TAB 650 MG TAB PO SCH (09:52)
[2024-12-11 11:18] LABS: Glucose,Whole Blood 197 mg/dL (70-110)
[2024-12-11] MEDS ORDERED: Magnesium Replacement Protocol 1 EACH MISC MISCELLANE PRN (11:31)
[2024-12-11] MEDS: MAGNESIUM SULFATE-D5W PMX 1 GM in DEXTROSE/WATER 1 100ML.BAG IVPB SCH (11:54)
--- NOTE | 2024-12-11 13:17 | P.PN ---
Subjective Progress Note Date: 12/11/24 Subjective: No new complaints. Patient does remain slightly confused. Gen: In NAD, non-toxic HEENT: normocephalic, atraumatic, hearing acuity is intant, mucous membranes moist CVS: perfusing all extremities well, no pitting edema, Respiratory: symmetric chest expansion, no accessory muscle use, GI: soft, NTTP, ND, : no suprapubic tenderness, no CVA tenderness MSK/Derm: no rashes, cyanosis Neuro: CN II-XII intact, no motor weakness, Psych: cooperative, euthymic mood, judgment and insight is intact Assessment and Plan: Active: Acute right leg DVT Right leg cellulitis Sepsis Proteus bacteremia Urinary tract infection - Continue on Eliquis 10 twice daily - continue on IV ceftriaxone 2 g every 24 hours - ID consulted, likely Proteus secondary to urinary tract infection - Continue to hold Imdur and torsemide - Vesiculobullous rash concerning for possible CellCept induced. However, no recent changes and his CellCept dose suggest otherwise. 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 Bilateral hydroureteronephrosis hypovolemic hyponatremia, improving Hypokalemia, resolved Anion gap metabolic acidosis, improving -Cadena catheter in place - Continue CellCept 250 twice daily, prednisone 20 daily - Nephrology following - continue to hold torsemide -Continue on normal saline 70 cc an hour Elevated troponin - Likely in the setting of CKD - No active chest pain - Continue aspirin and statin Type 2 diabetes - Continue home 70/30 insulin 10 units twice daily - Sliding scale insulin, monitor for hypoglycemia Resolved: Lactic acidosis Chronic: HFrEF 30 to 35% Hypertension Dyslipidemia DVT ppx: Eliquis Code status: Full code Anticipated discharge place: Pending PT evaluation Anticipated discharge time: Pending clinical course Objective - Vital Signs Vital signs: Vital Signs Temp 97.4 F L 12/11/24 12:06 Pulse 74 12/11/24 12:06 Resp 16 12/11/24 12:06 BP 143/73 12/11/24 12:06 Pulse Ox 99 12/11/24 12:06 FiO2 Intake & Output 12/10/24 12/11/24 12/11/24 18:59 06:59 18:59 Intake Total 3203 768 5665 Output Total 825 2000 1250 Balance 729 -1440 -87 Weight 89 kg Intake: IV 5 Invasive Line 2 5 Intake, IV Titration 1040 Amount Lactated Ringers 1,000 ml 840 @ 70 mls/hr IV .[id number] [facility] Rx#:[id number] Magnesium Sulfate-D5w Pmx 200 1 gm In Dextrose/Water 1 100ml.bag @ 100 mls/hr IVPB Q1H [facility] Rx#: [id number] Oral 1554 560 118 Output: Urine 825 2000 1250 Straight 1250 Other: Voiding Method Indwelling Catheter Indwelling Catheter Indwelling Catheter - Labs CBC & Chem 7: 12/11/24 07:08 12/11/24 07:08 Labs: Abnormal Lab Results - Last 24 Hours (Table) 12/10/24 12/10/24 12/10/24 Range/Units 09:37 09:37 16:18 WBC (4.50-10.00) 10*3/uL RBC (4.40-5.60) 10*6/uL Hgb (13.0-17.0) g/dL Hct (39.6-50.0) % Sodium (137-145) mmol/L Chloride (98-107) mmol/L Carbon Dioxide (22-30) mmol/L BUN (9-20) mg/dL Creatinine (0.66-1.25) mg/dL Glucose (74-99) mg/dL POC Glucose (mg/dL) 180 H (70-110) mg/dL Calcium (8.4-10.2) mg/dL Magnesium (1.6-2.3) mg/dL Iron 42 L (65-175) UG/DL TIBC 200 L (228-460) UG/DL Transferrin 143.0 L 144.0 L (204.0-354.0) mg/dL Ferritin 652.0 H (22.0-322.0) ng/mL 12/10/24 12/11/24 12/11/24 Range/Units 20:02 05:58 07:08 WBC (4.50-10.00) 10*3/uL RBC (4.40-5.60) 10*6/uL Hgb (13.0-17.0) g/dL Hct (39.6-50.0) % Sodium 132 L (137-145) mmol/L Chloride 108 H (98-107) mmol/L Carbon Dioxide 17 L (22-30) mmol/L BUN 61 H (9-20) mg/dL Creatinine 1.97 H (0.66-1.25) mg/dL Glucose 161 H (74-99) mg/dL POC Glucose (mg/dL) 251 H 198 H (70-110) mg/dL Calcium 8.2 L (8.4-10.2) mg/dL Magnesium 1.4 L (1.6-2.3) mg/dL Iron (65-175) UG/DL TIBC (228-460) UG/DL Transferrin (204.0-354.0) mg/dL Ferritin (22.0-322.0) ng/mL 12/11/24 12/11/24 Range/Units 07:08 11:17 WBC 14.75 H (4.50-10.00) 10*3/uL RBC 2.78 L (4.40-5.60) 10*6/uL Hgb 7.7 L (13.0-17.0) g/dL Hct 23.2 L (39.6-50.0) % Sodium (137-145) mmol/L Chloride (98-107) mmol/L Carbon Dioxide (22-30) mmol/L BUN (9-20) mg/dL Creatinine (0.66-1.25) mg/dL Glucose (74-99) mg/dL POC Glucose (mg/dL) 197 H (70-110) mg/dL Calcium (8.4-10.2) mg/dL Magnesium (1.6-2.3) mg/dL Iron (65-175) UG/DL TIBC (228-460) UG/DL Transferrin (204.0-354.0) mg/dL Ferritin (22.0-322.0) ng/mL Microbiology - Last 24 Hours (Table) 12/07/24 01:48 Blood Culture Gram Stain - Final Blood Blood Culture - Final Proteus mirabilis Molecular ID
--- NOTE | 2024-12-11 16:10 | P.PN ---
Subjective Patient is seen for follow-up of chronic kidney disease and acute kidney injury. No significant complaints today. Overall feeling better Serum creatinine decreased to 1.97 mg/dL Maintained on IV fluids. Hemoglobin dropped significantly since admission. It is 7.7 g/dL today. No active bleeding noted Objective - Vital Signs Vital signs: Vital Signs Temp 97.4 F L 12/11/24 12:06 Pulse 74 12/11/24 12:06 Resp 16 12/11/24 12:06 BP 143/73 12/11/24 12:06 Pulse Ox 99 12/11/24 12:06 FiO2 Intake & Output 12/10/24 12/11/24 12/11/24 18:59 06:59 18:59 Intake Total 7234 379 5290 Output Total 825 2000 1250 Balance 729 -1440 31 Weight 89 kg Intake: IV 5 Invasive Line 2 5 Intake, IV Titration 1040 Amount Lactated Ringers 1,000 ml 840 @ 70 mls/hr IV .[id number] [facility] Rx#:[id number] Magnesium Sulfate-D5w Pmx 200 1 gm In Dextrose/Water 1 100ml.bag @ 100 mls/hr IVPB Q1H [facility] Rx#: [id number] Oral 1554 560 236 Output: Urine 825 2000 1250 Straight 1250 Other: Voiding Method Indwelling Catheter Indwelling Catheter Indwelling Catheter - Exam Patient is awake, comfortable, no acute distress Examination of the heart S1 and S2 Examination of the lungs bilateral breath sounds are heard Decreased breath sounds at the bases Abdomen is soft nontender Examination lower extremity shows chronic skin changes with significant erythema and blistering noted on the right leg. 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 - Labs CBC & Chem 7: 12/11/24 07:08 12/11/24 07:08 Labs: Abnormal Lab Results - Last 24 Hours (Table) 12/10/24 12/10/24 12/11/24 Range/Units 16:18 20:02 05:58 WBC (4.50-10.00) 10*3/uL RBC (4.40-5.60) 10*6/uL Hgb (13.0-17.0) g/dL Hct (39.6-50.0) % Sodium (137-145) mmol/L Chloride (98-107) mmol/L Carbon Dioxide (22-30) mmol/L BUN (9-20) mg/dL Creatinine (0.66-1.25) mg/dL Glucose (74-99) mg/dL POC Glucose (mg/dL) 180 H 251 H 198 H (70-110) mg/dL Calcium (8.4-10.2) mg/dL Magnesium (1.6-2.3) mg/dL 12/11/24 12/11/24 12/11/24 Range/Units 07:08 07:08 11:17 WBC 14.75 H (4.50-10.00) 10*3/uL RBC 2.78 L (4.40-5.60) 10*6/uL Hgb 7.7 L (13.0-17.0) g/dL Hct 23.2 L (39.6-50.0) % Sodium 132 L (137-145) mmol/L Chloride 108 H (98-107) mmol/L Carbon Dioxide 17 L (22-30) mmol/L BUN 61 H (9-20) mg/dL Creatinine 1.97 H (0.66-1.25) mg/dL Glucose 161 H (74-99) mg/dL POC Glucose (mg/dL) 197 H (70-110) mg/dL Calcium 8.2 L (8.4-10.2) mg/dL Magnesium 1.4 L (1.6-2.3) mg/dL Microbiology - Last 24 Hours (Table) 12/07/24 01:48 Blood Culture Gram Stain - Final Blood Blood Culture - Final Proteus mirabilis Molecular ID Assessment and Plan Assessment: 1. Acute kidney injury, nonoliguric ATN associated with underlying infection, a nd obstructive uropathy.. Ultrasound shows mild to moderate hydronephrosis bilaterally. Currently with indwelling Cadena catheter which was placed in the ER. Also maintained on IV fluids. 2. 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 Previously received Rituxan 3. Right leg cellulitis maintained on antibiotics 4. Lactic acidosis 5. Cardiomyopathy with a EF of 30 to 35% 6. Anemia with significant drop in hemoglobin since admission, rule out GI bleed. Check stool for occult blood and Pepcid dose is increased. No active bleeding noted at this time. Iron saturation 21% Plan: Check stool for occult blood Consider adding proton pump inhibitors Continue with antibiotics Continue with IV fluids Continue with indwelling Cadena catheter
[2024-12-11 16:30] LABS: Glucose,Whole Blood 366 mg/dL (70-110)
[2024-12-11 20:17] LABS: Glucose,Whole Blood 257 mg/dL (70-110)
[2024-12-12 05:45] LABS: Glucose,Whole Blood 169 mg/dL (70-110)
--- NOTE | 2024-12-12 08:53 | P.PN ---
Subjective Progress Note Date: 12/12/24 Patient is seen for follow-up of chronic kidney disease and acute kidney injury. No significant complaints today. Overall feeling better BMP not resulted yet. Maintained on IV fluids. Objective - Vital Signs Vital signs: Vital Signs Temp 98 F 12/12/24 04:00 Pulse 89 12/12/24 06:34 Resp 18 12/12/24 04:00 BP 144/69 12/12/24 06:34 Pulse Ox 100 12/12/24 04:00 FiO2 Intake & Output 12/11/24 12/12/24 12/12/24 18:59 06:59 18:59 Intake Total 1404 360 Output Total 1925 1500 Balance -521 -1140 Weight 89 kg Intake: IV 10 Invasive Line 2 10 Intake, IV Titration 1040 Amount Lactated Ringers 1,000 ml 840 @ 70 mls/hr IV .[id number] [facility] Rx#:[id number] Magnesium Sulfate-D5w Pmx 200 1 gm In Dextrose/Water 1 100ml.bag @ 100 mls/hr IVPB Q1H [facility] Rx#: [id number] Oral 354 360 Output: Urine 1925 1500 Straight 1825 Other: Voiding Method Indwelling Catheter Indwelling Catheter - Exam Patient is awake, comfortable, no acute distress Examination of the heart S1 and S2 Examination of the lungs bilateral breath sounds are heard Decreased breath sounds at the bases Abdomen is soft nontender Examination lower extremity shows chronic skin changes with significant erythema and blistering noted on the right leg. 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 Acute kidney injury, nonoliguric ATN associated with underlying infection, and obstructive uropathy.. Ultrasound shows mild to moderate hydronephrosis bilaterally. Currently with indwelling Cadena catheter which was placed in the ER. Also maintained on IV fluids. 2. 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 Previously received Rituxan 3. Right leg cellulitis maintained on antibiotics 4. DVT of right external iliac down to proximal calf veins , on AC 4. Lactic acidosis 5. Cardiomyopathy with a EF of 30 to 35% 6. Anemia with significant drop in hemoglobin since admission, rule out GI bleed. Check stool for occult blood and Pepcid dose is increased. No active bleeding noted at this time. Iron saturation 21% Plan: Pending labs today, october d/c IVF if cr. continue to trend down. Continue with antibiotics and Anticoagulation Continue with indwelling Cadena catheter
[2024-12-12] MEDS: VITS A & D-WHITE PET-LANOLIN TUBE TOPICAL SCH (09:22)
[2024-12-12 10:51] LABS: African American GFR (CKD) 40 (>60 ml/min/1.73 sqM); Anion Gap 11 mmol/L; Blood Urea Nitrogen 56 mg/dL (9-20); Calcium 8.5 mg/dL (8.4-10.2); Carbon Dioxide 15 mmol/L (22-30); Chloride 107 mmol/L (98-107); Glucose 161 mg/dL (74-99); Magnesium 1.8 mg/dL (1.6-2.3); Non-African American GFR(CKD) 35 (>60 ml/min/1.73 sqM); Sodium 133 mmol/L (137-145)
[2024-12-12 11:41] LABS: Glucose,Whole Blood 174 mg/dL (70-110)
--- NOTE | 2024-12-12 13:00 | P.PN ---
Subjective Progress Note Date: 12/12/24 Subjective: No new complaints. Pending re-evaluation by PT/OT. Gen: In NAD, non-toxic HEENT: normocephalic, atraumatic, hearing acuity is intant, mucous membranes moist CVS: perfusing all extremities well, no pitting edema, Respiratory: symmetric chest expansion, no accessory muscle use, GI: soft, NTTP, ND, : no suprapubic tenderness, no CVA tenderness MSK/Derm: no rashes, cyanosis Neuro: CN II-XII intact, no motor weakness, Psych: cooperative, euthymic mood, judgment and insight is intact Assessment and Plan: Active: Acute right leg DVT Right leg cellulitis Sepsis Proteus bacteremia Urinary tract infection - Continue on Eliquis 10 twice daily - continue on IV ceftriaxone 2 g every 24 hours - ID consulted, likely Proteus secondary to urinary tract infection - Continue to hold Imdur and torsemide - Vesiculobullous rash concerning for possible CellCept induced. However, no recent changes and his CellCept dose suggest otherwise. 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 Bilateral hydroureteronephrosis hypovolemic hyponatremia, improving Hypokalemia, resolved Anion gap metabolic acidosis, improving -Cadena catheter in place - Continue CellCept 250 twice daily, prednisone 20 daily - Nephrology following - continue to hold torsemide -Continue on normal saline 70 cc an hour Elevated troponin - Likely in the setting of CKD - No active chest pain - Continue aspirin and statin Type 2 diabetes - Continue home 70/30 insulin 10 units twice daily - Sliding scale insulin, monitor for hypoglycemia Resolved: Lactic acidosis Chronic: HFrEF 30 to 35% Hypertension Dyslipidemia DVT ppx: Eliquis Code status: Full code Anticipated discharge place: Pending PT evaluation Anticipated discharge time: Pending clinical course Objective - Vital Signs Vital signs: Vital Signs Temp 97.9 F 12/12/24 12:32 Pulse 83 12/12/24 12:32 Resp 20 12/12/24 12:32 BP 126/64 12/12/24 12:32 Pulse Ox 100 12/12/24 12:32 FiO2 Intake & Output 12/11/24 12/12/24 12/12/24 18:59 06:59 18:59 Intake Total 1404 360 365 Output Total 1925 1500 675 Balance -521 -1140 -310 Weight 89 kg Intake: IV 10 5 Invasive Line 2 10 5 Intake, IV Titration 1040 360 Amount Lactated Ringers 1,000 ml 840 360 @ 70 mls/hr IV .[id number] [facility] Rx#:[id number] Magnesium Sulfate-D5w Pmx 200 1 gm In Dextrose/Water 1 100ml.bag @ 100 mls/hr IVPB Q1H [facility] Rx#: [id number] Oral 354 360 Output: Urine 1925 1500 675 Straight 1825 675 Other: Voiding Method Indwelling Catheter Indwelling Catheter Indwelling Catheter - Labs CBC & Chem 7: 12/11/24 07:08 12/12/24 08:36 Labs: Abnormal Lab Results - Last 24 Hours (Table) 12/11/24 12/11/24 12/12/24 Range/Units 16:26 20:15 05:43 Sodium (137-145) mmol/L Carbon Dioxide (22-30) mmol/L BUN (9-20) mg/dL Creatinine (0.66-1.25) mg/dL Glucose (74-99) mg/dL POC Glucose (mg/dL) 366 H 257 H 169 H (70-110) mg/dL 12/12/24 12/12/24 Range/Units 08:36 11:39 Sodium 133 L (137-145) mmol/L Carbon Dioxide 15 L (22-30) mmol/L BUN 56 H (9-20) mg/dL Creatinine 1.86 H (0.66-1.25) mg/dL Glucose 161 H (74-99) mg/dL POC Glucose (mg/dL) 174 H (70-110) mg/dL
--- NOTE | 2024-12-12 14:49 | P.PN ---
Subjective Progress Note Date: 12/11/24 Principal diagnosis: Reason for follow-up is Proteus UTI and bacteremia Patient is a 74-year-old male with a past medical history significant for diabetes mellitus hypertension hyperlipidemia renal disease heart failure presenting to the hospital for generalized weakness abdominal pain and right lower extremity swelling, patient did have positive blood culture with the Proteus prompting this consultation. On today's evaluation that is 12/11/2024, the patient continues to be afebrile, the patient is on room air and breathing comfortably, the Pt denies having any c hest pain or cough, the patient denies having any abdominal pain no vomiting or any diarrhea has been reported by the nursing staff. Patient white count slightly up to 14.75 today, creatinine is 1.97 Objective - Vital Signs Vital signs: Vital Signs Temp 97.4 F L 12/11/24 16:52 Pulse 91 12/11/24 16:52 Resp 16 12/11/24 16:52 BP 141/76 12/11/24 16:52 Pulse Ox 100 12/11/24 16:52 FiO2 Intake & Output 12/11/24 12/11/24 12/12/24 06:59 18:59 06:59 Intake Total 560 1404 Output Total 1999 1924 Balance -1440 -521 Weight 89 kg Intake: IV 10 Invasive Line 2 10 Intake, IV Titration 1040 Amount Lactated Ringers 1,000 ml 840 @ 70 mls/hr IV .[id number] [facility] Rx#:[id number] Magnesium Sulfate-D5w Pmx 200 1 gm In Dextrose/Water 1 100ml.bag @ 100 mls/hr IVPB Q1H [facility] Rx#: [id number] Oral 560 354 Output: Urine 19995 Straight 1825 Other: Voiding Method Indwelling Catheter Indwelling Catheter - Exam GENERAL DESCRIPTION: An elderly male lying in bed in no distress RESPIRATORY SYSTEM: Unlabored breathing , decreased breath sounds at bases HEART: S1 S2 regular rate and rhythm , ABDOMEN: Soft , no tenderness EXTREMITIES: Right lower extremity diffuse swelling and some blisters - Labs CBC & Chem 7: 12/11/24 07:08 12/12/24 08:36 Labs: Abnormal Lab Results - Last 24 Hours (Table) 12/10/24 12/11/24 12/11/24 Range/Units 20:02 05:58 07:08 WBC (4.50-10.00) 10*3/uL RBC (4.40-5.60) 10*6/uL Hgb (13.0-17.0) g/dL Hct (39.6-50.0) % Sodium 132 L (137-145) mmol/L Chloride 108 H (98-107) mmol/L Carbon Dioxide 17 L (22-30) mmol/L BUN 61 H (9-20) mg/dL Creatinine 1.97 H (0.66-1.25) mg/dL Glucose 161 H (74-99) mg/dL POC Glucose (mg/dL) 251 H 198 H (70-110) mg/dL Calcium 8.2 L (8.4-10.2) mg/dL Magnesium 1.4 L (1.6-2.3) mg/dL 12/11/24 12/11/24 12/11/24 Range/Units 07:08 11:17 16:26 WBC 14.75 H (4.50-10.00) 10*3/uL RBC 2.78 L (4.40-5.60) 10*6/uL Hgb 7.7 L (13.0-17.0) g/dL Hct 23.2 L (39.6-50.0) % Sodium (137-145) mmol/L Chloride (98-107) mmol/L Carbon Dioxide (22-30) mmol/L BUN (9-20) mg/dL Creatinine (0.66-1.25) mg/dL Glucose (74-99) mg/dL POC Glucose (mg/dL) 197 H 366 H (70-110) mg/dL Calcium (8.4-10.2) mg/dL Magnesium (1.6-2.3) mg/dL Assessment and Plan (1) UTI (urinary tract infection) Current Visit: Yes Status: Acute Code(s): N39.0 - URINARY TRACT INFECTION, SITE NOT SPECIFIED SNOMED Code(s): 00885020 (2) Positive blood cultures Current Visit: Yes Status: Acute Code(s): R78.81 - BACTEREMIA SNOMED Co de(s): 198754887 (3) Cellulitis of right leg Current Visit: Yes Status: Acute Code(s): L03.115 - CELLULITIS OF RIGHT LOWER LIMB SNOMED Code(s): 55207355905731142 Plan: 1patient with gram-negative bacteremia identified as Proteus species source is likely urinary as urine is growing the same pathogen and apparently sensitive pathogen as reported by the pharmacist with the full sensitivities are currently pending patient did have mild left-sided hydronephrosis on the ultrasound did not mention any stone or renal abscess and no evidence of any colitis 2patient also have swelling and redness of right lower extremity concerning for possible component of cellulitis, 3the patient is afebrile white count is slightly up today will be monitored closely 4we will treat the patient with Rocephin while inpatient and monitor clinical course closely Dictation was produced using [email or web address] dictation software. please excuse any grammatical, word or spelling errors. Time with Patient: Less than 30
--- NOTE | 2024-12-12 14:51 | P.PN ---
Subjective Progress Note Date: 12/12/24 Principal diagnosis: Reason for follow-up is Proteus UTI and bacteremia Patient is a 74-year-old male with a past medical history significant for diabetes mellitus hypertension hyperlipidemia renal disease heart failure presenting to the hospital for generalized weakness abdominal pain and right lower extremity swelling, patient did have positive blood culture with the Proteus prompting this consultation. On today's evaluation that is 12/13/2023, patient did have a temperature of 98 F this morning and denies having any chills, patient is on room air and breathing comfortably no chest pain or cough, the patient did not have any nausea vomiting abdominal pain or any diarrhea. Patient did have a creatinine 1.86 no CBC was done today Objective - Vital Signs Vital signs: Vital Signs Temp 97.9 F 12/12/24 12:32 Pulse 83 12/12/24 12:32 Resp 20 12/12/24 12:32 BP 126/64 12/12/24 12:32 Pulse Ox 100 12/12/24 12:32 FiO2 Intake & Output 12/11/24 12/12/24 12/12/24 18:59 06:59 18:59 Intake Total 1404 360 365 Output Total 1925 1500 1000 Balance -521 -1140 -635 Weight 89 kg Intake: IV 10 5 Invasive Line 2 10 5 Intake, IV Titration 1040 360 Amount Lactated Ringers 1,000 ml 840 360 @ 70 mls/hr IV .[id number] [facility] Rx#:[id number] Magnesium Sulfate-D5w Pmx 200 1 gm In Dextrose/Water 1 100ml.bag @ 100 mls/hr IVPB Q1H [facility] Rx#: [id number] Oral 354 360 Output: Urine 1925 1500 1000 Straight 1825 675 Other: Voiding Method Indwelling Catheter Indwelling Catheter Indwelling Catheter - Exam GENERAL DESCRIPTION: An elderly male lying in bed in no distress RESPIRATORY SYSTEM: Unlabored breathing , decreased breath sounds at bases HEART: S1 S2 regular rate and rhythm , ABDOMEN: Soft , no tenderness EXTREMITIES: Right lower extremity diffuse swelling and some blisters - Labs CBC & Chem 7: 12/11/24 07:08 12/12/24 08:36 Labs: Abnormal Lab Results - Last 24 Hours (Table) 12/11/24 12/11/24 12/12/24 Range/Units 16:26 20:15 05:43 Sodium (137-145) mmol/L Carbon Dioxide (22-30) mmol/L BUN (9-20) mg/dL Creatinine (0.66-1.25) mg/dL Glucose (74-99) mg/dL POC Glucose (mg/dL) 366 H 257 H 169 H (70-110) mg/dL 12/12/24 12/12/24 Range/Units 08:36 11:39 Sodium 133 L (137-145) mmol/L Carbon Dioxide 15 L (22-30) mmol/L BUN 56 H (9-20) mg/dL Creatinine 1.86 H (0.66-1.25) mg/dL Glucose 161 H (74-99) mg/dL POC Glucose (mg/dL) 174 H (70-110) mg/dL Assessment and Plan (1) UTI (urinary tract infection) Current Visit: Yes Status: Acute Code(s): N39.0 - URINARY TRACT INFECTION, SITE NOT SPECIFIED SNOMED Code(s): 29365907 (2) Positive blood cultures Current Visit: Yes Status: Acute Code(s): R78.81 - BACTEREMIA SNOMED Code(s): 781640466 (3) Cellulitis of right leg Current Visit: Yes Status: Acute Code(s): L03.115 - CELLULITIS OF RIGHT LOWER LIMB SNOMED Code(s): 13328619884173778 Plan: 1patient with gram-negative bacteremia identified as Proteus species source is likely urinary as urine is growing the same pathogen and apparently sensitive pathogen as reported by the pharmacist with the full sensitivities are currently pending patient did have mild left-sided hydronephrosis on the ultrasound did not mention any stone or renal abscess and no evidence of any colitis 2patient also have swelling and redness of right lower extremity concerning for possible component of cellulitis, 3the patient is afebrile white count is slightly up yesterday, no CBC was done today we will repeat his CBC with am lab for now continue with Rocephin while inpatient Dictation was produced using [employer] dictation software. please excuse any grammatical, word or spelling errors. Time with Patient: Less than 30
[2024-12-12 16:21] LABS: Glucose,Whole Blood 291 mg/dL (70-110)
[2024-12-12 20:36] LABS: Glucose,Whole Blood 229 mg/dL (70-110)
[2024-12-13 05:57] LABS: Glucose,Whole Blood 129 mg/dL (70-110)
[2024-12-13 07:38] LABS: HCT 25.3 % (39.6-50.0); HGB 8.3 g/dL (13.0-17.0); MCH 27.3 pg (27.0-32.0); MCHC 32.8 g/dL (32.0-37.0); MCV 83.2 fL (80.0-97.0); Mean Platelet Volume 10.3 fL (9.5-12.2); Platelet Count 258 10*3/uL (140-440); RBC 3.04 10*6/uL (4.40-5.60); RDW 16.8 % (11.5-14.5); WBC 16.49 10*3/uL (4.50-10.00)
[2024-12-13 07:51] LABS: African American GFR (CKD) 40 (>60 ml/min/1.73 sqM); Anion Gap 10 mmol/L; Blood Urea Nitrogen 59 mg/dL (9-20); Calcium 8.7 mg/dL (8.4-10.2); Carbon Dioxide 16 mmol/L (22-30); Chloride 109 mmol/L (98-107); Glucose 99 mg/dL (74-99); Non-African American GFR(CKD) 35 (>60 ml/min/1.73 sqM); Potassium 3.6 mmol/L (3.5-5.1); Sodium 135 mmol/L (137-145)
--- NOTE | 2024-12-13 09:37 | P.PN ---
Subjective Progress Note Date: 12/13/24 Patient is seen for follow-up of chronic kidney disease and acute kidney injury. No significant complaints today. resting in bed creatinine stable 1.8 today off IV fluids. Objective - Vital Signs Vital signs: Vital Signs Temp 97.0 F L 12/13/24 08:25 Pulse 71 12/13/24 08:25 Resp 18 12/13/24 08:25 BP 132/54 12/13/24 08:25 Pulse Ox 99 12/13/24 08:25 FiO2 Intake & Output 12/12/24 12/13/24 12/13/24 18:59 06:59 18:59 Intake Total 611 480 10 Output Total 1175 1325 Balance -564 -845 10 Weight 89 kg Intake: IV 15 10 Invasive Line 1 5 Invasive Line 2 5 Invasive Line 3 10 5 Intake, IV Titration 360 Amount Lactated Ringers 1,000 ml 360 @ 70 mls/hr IV .[id number] [facility] Rx#:[id number] Oral 236 480 Output: Urine 1175 1325 Straight 675 Other: Voiding Method Indwelling Catheter Indwelling Catheter - Exam Patient is awake, comfortable, no acute distress Examination of the heart S1 and S2 Examination of the lungs bilateral breath sounds are heard Decreased breath sounds at the bases Abdomen is soft nontender Examination lower extremity shows chronic skin changes with significant erythema and blistering noted on the right leg. Blisters have ruptured [employer] COMP[employer]ER exam grossly intact - Labs CBC & Chem 7: 12/13/24 06:51 12/13/24 06:51 Labs: Abnormal Lab Results - Last 24 Hours (Table) 12/12/24 12/12/24 12/12/24 Range/Units 08:36 11:39 16:20 WBC (4.50-10.00) 10*3/uL RBC (4.40-5.60) 10*6/uL Hgb (13.0-17.0) g/dL Hct (39.6-50.0) % Immature Gran # (0.00-0.04) 10*3/uL Sodium 133 L (137-145) mmol/L Chloride (98-107) mmol/L Carbon Dioxide 15 L (22-30) mmol/L BUN 56 H (9-20) mg/dL Creatinine 1.86 H (0.66-1.25) mg/dL Glucose 161 H (74-99) mg/dL POC Glucose (mg/dL) 174 H 291 H (70-110) mg/dL 12/12/24 12/13/24 12/13/24 Range/Units 20:34 05:55 06:51 WBC 16.49 H (4.50-10.00) 10*3/uL RBC 3.04 L (4.40-5.60) 10*6/uL Hgb 8.3 L (13.0-17.0) g/dL Hct 25.3 L (39.6-50.0) % Immature Gran # 1.51 H (0.00-0.04) 10*3/uL Sodium (137-145) mmol/L Chloride (98-107) mmol/L Carbon Dioxide (22-30) mmol/L BUN (9-20) mg/dL Creatinine (0.66-1.25) mg/dL Glucose (74-99) mg/dL POC Glucose (mg/dL) 229 H 129 H (70-110) mg/dL 12/13/24 Range/Units 06:51 WBC (4.50-10.00) 10*3/uL RBC (4.40-5.60) 10*6/uL Hgb (13.0-17.0) g/dL Hct (39.6-50.0) % Immature Gran # (0.00-0.04) 10*3/uL Sodium 135 L (137-145) mmol/L Chloride 109 H (98-107) mmol/L Carbon Dioxide 16 L (22-30) mmol/L BUN 59 H (9-20) mg/dL Creatinine 1.85 H (0.66-1.25) mg/dL Glucose (74-99) mg/dL POC Glucose (mg/dL) (70-110) mg/dL Assessment and Plan Assessment: 1. Acute kidney injury, nonoliguric ATN associated with underlying infection, and obstructive uropathy.. Ultrasound shows mild to moderate hydronephrosis bilaterally. Currently with indwelling Cadena catheter which was placed in the ER. s/p IVF, baseline cr. ~2.0. stable cr. currently ~1.8 2. 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 Previously received Rituxan 3. Right leg cellulitis maintained on antibiotics 4. DVT of right external iliac down to proximal calf veins , on AC 4. Lactic acidosis 5. Cardiomyopathy with a EF of 30 to 35% 6. Anemia with significant drop in hemoglobin since admission, rule out GI bleed. Check stool for occult blood and Pepcid dose is increased. No active bleeding noted at this time. Iron saturation 21% Plan: stable renal function, continue to monitor off IVF Continue with antibiotics and Anticoagulation Continue with indwelling Cadena catheter
[2024-12-13 10:38] LABS: Basophils # (M) 0.16 k/uL (0-0.2); Lymphocytes # (M) 1.98 k/uL (1.0-4.8); Monocytes # (M) 0.99 k/uL (0-1.0); Neutrophils # (M) 13.36 k/uL (1.3-7.7); Neutrophils % (M) 81 %; Nucleated Red Blood Cells 0 /100 WBC (0-0); Total Cells Counted 100
[2024-12-13 11:56] LABS: Glucose,Whole Blood 196 mg/dL (70-110)
--- NOTE | 2024-12-13 14:30 | P.PN ---
Subjective Progress Note Date: 12/13/24 Subjective: No new complaints. Pending re-evaluation by PT/OT. Cr is stable today. Gen: In NAD, non-toxic HEENT: normocephalic, atraumatic, hearing acuity is intant, mucous membranes moist CVS: perfusing all extremities well, no pitting edema, Respiratory: symmetric chest expansion, no accessory muscle use, GI: soft, NTTP, ND, : no suprapubic tenderness, no CVA tenderness MSK/Derm: no rashes, cyanosis Neuro: CN II-XII intact, no motor weakness, Psych: cooperative, euthymic mood, judgment and insight is intact Assessment and Plan: Active: Acute right leg DVT Right leg cellulitis Sepsis Proteus bacteremia Urinary tract infection - Continue on Eliquis 10 twice daily - continue on IV ceftriaxone 2 g every 24 hours - ID consulted, likely Proteus secondary to urinary tract infection - Continue to hold Imdur and torsemide - Vesiculobullous rash concerning for possible CellCept induced. However, no recent changes and his CellCept dose suggest otherwise. 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 Bilateral hydroureteronephrosis hypovolemic hyponatremia, improving Hypokalemia, resolved Anion gap metabolic acidosis, improving -Cadena catheter in place - Continue CellCept 250 twice daily, prednisone 20 daily - Nephrology following - continue to hold torsemide -Continue on normal saline 70 cc an hour Elevated troponin - Likely in the setting of CKD - No active chest pain - Continue aspirin and statin Type 2 diabetes - Continue home 70/30 insulin 10 units twice daily - Sliding scale insulin, monitor for hypoglycemia Resolved: Lactic acidosis Chronic: HFrEF 30 to 35% Hypertension Dyslipidemia DVT ppx: Eliquis Code status: Full code Anticipated discharge place: Pending PT evaluation Anticipated discharge time: Pending clinical course Objective - Vital Signs Vital signs: Vital Signs Temp 97.4 F L 12/13/24 12:18 Pulse 75 12/13/24 14:02 Resp 18 12/13/24 12:18 BP 132/76 12/13/24 12:18 Pulse Ox 100 12/13/24 12:18 FiO2 Intake & Output 12/12/24 12/13/24 12/13/24 18:59 06:59 18:59 Intake Total 611 480 138 Output Total 2250 1325 650 Balance -1639 -845 -512 Weight 89 kg Intake: IV 15 20 Invasive Line 1 10 Invasive Line 2 5 Invasive Line 3 10 10 Intake, IV Titration 360 Amount Lactated Ringers 1,000 ml 360 @ 70 mls/hr IV .[id number] [facility] Rx#:[id number] Oral 236 480 118 Output: Urine 2250 1325 650 Straight 1750 Other: Voiding Method Indwelling Catheter Indwelling Catheter Indwelling Catheter - Labs CBC & Chem 7: 12/13/24 06:51 12/13/24 06:51 Labs: Abnormal Lab Results - Last 24 Hours (Table) 12/12/24 12/12/24 12/13/24 Range/Units 16:20 20:34 05:55 WBC (4.50-10.00) 10*3/uL RBC (4.40-5.60) 10*6/uL Hgb (13.0-17.0) g/dL Hct (39.6-50.0) % Immature Gran # (0.00-0.04) 10*3/uL Neutrophils # (Manual) (1.3-7.7) k/uL Sodium (137-145) mmol/L Chloride (98-107) mmol/L Carbon Dioxide (22-30) mmol/L BUN (9-20) mg/dL Creatinine (0.66-1.25) mg/dL POC Glucose (mg/dL) 291 H 229 H 129 H (70-110) mg/dL 12/13/24 12/13/24 12/13/24 Range/Units 06:51 06:51 11:54 WBC 16.49 H (4.50-10.00) 10*3/uL RBC 3.04 L (4.40-5.60) 10*6/uL Hgb 8.3 L (13.0-17.0) g/dL Hct 25.3 L (39.6-50.0) % Immature Gran # 1.51 H (0.00-0.04) 10*3/uL Neutrophils # (Manual) 13.36 H (1.3-7.7) k/uL Sodium 135 L (137-145) mmol/L Chloride 109 H (98-107) mmol/L Carbon Dioxide 16 L (22-30) mmol/L BUN 59 H (9-20) mg/dL Creatinine 1.85 H (0.66-1.25) mg/dL POC Glucose (mg/dL) 196 H (70-110) mg/dL
--- NOTE | 2024-12-13 15:49 | P.PN ---
Subjective Progress Note Date: 12/13/24 Principal diagnosis: Reason for follow-up is Proteus UTI and bacteremia Patient is a 74-year-old male with a past medical history significant for diabetes mellitus hypertension hyperlipidemia renal disease heart failure presenting to the hospital for generalized weakness abdominal pain and right lower extremity swelling, patient did have positive blood culture with the Proteus prompting this consultation. On today's evaluation that is 12/13/2024, Patient is afebrile patient is currently on room air and denies having any shortness of breath, the patient denies any chest pain or cough, the patient denies any nausea vomiting did not have any abdominal pain and no diarrhea. Mention feeling better. Patient white count 16.49 creatinine is 1.85 Objective - Vital Signs Vital signs: Vital Signs Temp 97.4 F L 12/13/24 12:18 Pulse 75 12/13/24 14:02 Resp 18 12/13/24 12:18 BP 132/76 12/13/24 12:18 Pulse Ox 100 12/13/24 12:18 FiO2 Intake & Output 12/12/24 12/13/24 12/13/24 18:59 06:59 18:59 Intake Total 611 480 138 Output Total 2250 1325 950 Balance -1639 -845 -812 Weight 89 kg Intake: IV 15 20 Invasive Line 1 10 Invasive Line 2 5 Invasive Line 3 10 10 Intake, IV Titration 360 Amount Lactated Ringers 1,000 ml 360 @ 70 mls/hr IV .[id number] [facility] Rx#:[id number] Oral 236 480 118 Output: Urine 2250 1325 950 Straight 1750 Other: Voiding Method Indwelling Catheter Indwelling Catheter Indwelling Catheter - Exam GENERAL DESCRIPTION: An elderly male lying in bed in no distress RESPIRATORY SYSTEM: Unlabored breathing , decreased breath sounds at bases HEART: S1 S2 regular rate and rhythm , ABDOMEN: Soft , no tenderness EXTREMITIES: Right lower extremity diffuse swelling and some blisters - Labs CBC & Chem 7: 12/13/24 06:51 12/13/24 06:51 Labs: Abnormal Lab Results - Last 24 Hours (Table) 12/12/24 12/12/24 12/13/24 Range/Units 16:20 20:34 05:55 WBC (4.50-10.00) 10*3/uL RBC (4.40-5.60) 10*6/uL Hgb (13.0-17.0) g/dL Hct (39.6-50.0) % Immature Gran # (0.00-0.04) 10*3/uL Neutrophils # (Manual) (1.3-7.7) k/uL Sodium (137-145) mmol/L Chloride (98-107) mmol/L Carbon Dioxide (22-30) mmol/L BUN (9-20) mg/dL Creatinine (0.66-1.25) mg/dL POC Glucose (mg/dL) 291 H 229 H 129 H (70-110) mg/dL 12/13/24 12/13/24 12/13/24 Range/Units 06:51 06:51 11:54 WBC 16.49 H (4.50-10.00) 10*3/uL RBC 3.04 L (4.40-5.60) 10*6/uL Hgb 8.3 L (13.0-17.0) g/dL Hct 25.3 L (39.6-50.0) % Immature Gran # 1.51 H (0.00-0.04) 10*3/uL Neutrophils # (Manual) 13.36 H (1.3-7.7) k/uL Sodium 135 L (137-145) mmol/L Chloride 109 H (98-107) mmol/L Carbon Dioxide 16 L (22-30) mmol/L BUN 59 H (9-20) mg/dL Creatinine 1.85 H (0.66-1.25) mg/dL POC Glucose (mg/dL) 196 H (70-110) mg/dL Assessment and Plan (1) UTI (urinary tract infection) Current Visit: Yes Status: Acute Code(s): N39.0 - URINARY TRACT INFECTION, SITE NOT SPECIFIED SNOMED Code(s): 19171307 (2) Positive blood cultures Current Visit: Yes Status: Acute Code(s): R78.81 - BACTEREMIA SNOMED Code(s): 269827513 (3) Cellulitis of right leg Current Visit: Yes Status: Acute Code(s): L03.115 - CELLULITIS OF RIGHT LOWER LIMB SNOMED Code(s): 01111456442667017 Plan: 1patient with gram-negative bacteremia identified as Proteus species source is likely urinary as urine is growing the same pathogen and apparently sensitive pathogen as reported by the pharmacist with the full sensitivities are currently pending patient did have mild left-sided hydronephrosis on the ultrasound did not mention any stone or renal abscess and no evidence of any colitis 2patient also have swelling and redness of right lower extremity concerning for possible component of cellulitis, 3the patient is afebrile white count is slightly weighted more likely related to the prednisone has no evidence of any worsening condition continue with R herrera finishing therapy with the Keflex duration of antibiotic should be total of 2 weeks Dictation was produced using [employer] software. please excuse any grammatical, word or spelling errors. Time with Patient: Less than 30
[2024-12-13 16:23] LABS: Glucose,Whole Blood 320 mg/dL (70-110)
[2024-12-13 20:28] LABS: Glucose,Whole Blood 266 mg/dL (70-110)
[2024-12-14 05:59] LABS: Glucose,Whole Blood 101 mg/dL (70-110)
[2024-12-14 06:34] LABS: HCT 27.3 % (39.6-50.0); HGB 8.8 g/dL (13.0-17.0); MCH 27.2 pg (27.0-32.0); MCHC 32.2 g/dL (32.0-37.0); MCV 84.3 fL (80.0-97.0); Mean Platelet Volume 9.9 fL (9.5-12.2); Platelet Count 251 10*3/uL (140-440); RBC 3.24 10*6/uL (4.40-5.60); RDW 17.1 % (11.5-14.5); WBC 17.15 10*3/uL (4.50-10.00)
[2024-12-14 07:13] LABS: African American GFR (CKD) 38 (>60 ml/min/1.73 sqM); Anion Gap 8 mmol/L; Blood Urea Nitrogen 61 mg/dL (9-20); Calcium 8.6 mg/dL (8.4-10.2); Carbon Dioxide 21 mmol/L (22-30); Chloride 108 mmol/L (98-107); Glucose 96 mg/dL (74-99); Non-African American GFR(CKD) 33 (>60 ml/min/1.73 sqM); Potassium 3.6 mmol/L (3.5-5.1); Sodium 137 mmol/L (137-145)
[2024-12-14 07:17] VITALS: BMI 29.9
--- NOTE | 2024-12-14 10:59 | P.PN ---
Subjective Patient is seen in follow-up for acute kidney injury on chronic kidney disease. Renal function stable. Admits to good urine output. Wants to go home. Denies chest pain or shortness of breath. Vital signs are stable. General: No acute distress. HEENT: Head exam is unremarkable. LUNGS: No audible rhonchi or wheezes. HEART: Rate and Rhythm are regular. ABDOMEN: Nontender. EXTREMITITES: Chronic changes noted. No edema. Right lower extremity dressing noted. Objective - Vital Signs Vital signs: Vital Signs Temp 97.7 F 12/14/24 08:59 Pulse 69 12/14/24 09:00 Resp 16 12/14/24 09:00 BP 107/69 12/14/24 08:59 Pulse Ox 100 12/14/24 08:59 FiO2 Intake & Output 12/13/24 12/14/24 12/14/24 18:59 06:59 18:59 Intake Total 148 730 240 Output Total 950 1100 Balance -802 -370 240 Weight 89.5 kg 89.5 kg Intake: IV 30 10 Invasive Line 1 10 Invasive Line 3 20 10 Oral 118 720 240 Output: Urine 950 1100 Other: Voiding Method Indwelling Catheter Indwelling Catheter Indwelling Catheter - Labs CBC & Chem 7: 12/14/24 06:21 12/14/24 06:21 Labs: Abnormal Lab Results - Last 24 Hours (Table) 12/13/24 12/13/24 12/13/24 Range/Units 11:54 16:21 20:24 WBC (4.50-10.00) 10*3/uL RBC (4.40-5.60) 10*6/uL Hgb (13.0-17.0) g/dL Hct (39.6-50.0) % Chloride (98-107) mmol/L Carbon Dioxide (22-30) mmol/L BUN (9-20) mg/dL Creatinine (0.66-1.25) mg/dL POC Glucose (mg/dL) 196 H 320 H 266 H (70-110) mg/dL 12/14/24 12/14/24 Range/Units 06:21 06:21 WBC 17.15 H (4.50-10.00) 10*3/uL RBC 3.24 L (4.40-5.60) 10*6/uL Hgb 8.8 L (13.0-17.0) g/dL Hct 27.3 L (39.6-50.0) % Chloride 108 H (98-107) mmol/L Carbon Dioxide 21 L (22-30) mmol/L BUN 61 H (9-20) mg/dL Creatinine 1.95 H (0.66-1.25) mg/dL POC Glucose (mg/dL) (70-110) mg/dL Assessment and Plan Plan: Assessment: 1. Acute kidney injury secondary to ATN secondary to severe sepsis and obstructive uropathy. Bilateral hydronephrosis noted on ultrasound. Creatinine 2.9 on admission and is 1.95 today. 2. 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 3. Lower extremity cellulitis on antibiotics. 4. Chronic systolic CHF ejection fraction of 30 to 35%. 5. Anemia of chronic kidney disease maintained on Aranesp. Plan: Encouraged oral intake. Avoid nephrotoxins. Consult urology for the hydronephrosis. Follow-up outpatient 1 to 2 weeks postdischarge.
[2024-12-14 11:37] LABS: Glucose,Whole Blood 143 mg/dL (70-110)
--- NOTE | 2024-12-14 12:46 | P.PN ---
Subjective Progress Note Date: 12/14/24 Subjective: No new complaints. Pending re-evaluation by PT/OT. Cr is stable today. Urology consulted by Nephrology for hydronephrosis, pending evaluation Gen: In NAD, non-toxic HEENT: normocephalic, atraumatic, hearing acuity is intant, mucous membranes moist CVS: perfusing all extremities well, no pitting edema, Respiratory: symmetric chest expansion, no accessory muscle use, GI: soft, NTTP, ND, : no suprapubic tenderness, no CVA tenderness MSK/Derm: no rashes, cyanosis Neuro: CN II-XII intact, no motor weakness, Psych: cooperative, euthymic mood, judgment and insight is intact Assessment and Plan: Active: Acute right leg DVT Right leg cellulitis Sepsis Proteus bacteremia Urinary tract infection - Continue on Eliquis 10 twice daily - continue on IV ceftriaxone 2 g every 24 hours - ID consulted, likely Proteus secondary to urinary tract infection - Continue to hold Imdur and torsemide - Vesiculobullous rash concerning for possible CellCept induced. However, no recent changes and his CellCept dose suggest otherwise. 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 Bilateral hydroureteronephrosis hypovolemic hyponatremia, improving Hypokalemia, resolved Anion gap metabolic acidosis, improving -Cadena catheter in place - Continue CellCept 250 twice daily, prednisone 20 daily - Nephrology following - continue to hold torsemide -Continue on normal saline 70 cc an hour Elevated troponin - Likely in the setting of CKD - No active chest pain - Continue aspirin and statin Type 2 diabetes - Continue home 70/30 insulin 10 units twice daily - Sliding scale insulin, monitor for hypoglycemia Resolved: Lactic acidosis Chronic: HFrEF 30 to 35% Hypertension Dyslipidemia DVT ppx: Eliquis Code status: Full code Anticipated discharge place: Pending PT evaluation Anticipated discharge time: Pending clinical course Objective - Vital Signs Vital signs: Vital Signs Temp 97.7 F 12/14/24 08:59 Pulse 70 12/14/24 11:52 Resp 16 12/14/24 11:52 BP 136/77 12/14/24 11:52 Pulse Ox 100 12/14/24 11:52 FiO2 Intake & Output 12/13/24 12/14/2412/14/25 18:59 06:59 18:59 Intake Total 148 730 240 Output Total 950 1100 Balance -802 -370 240 Weight 89.5 kg 89.5 kg Intake: IV 30 10 Invasive Line 1 10 Invasive Line 3 20 10 Oral 118 720 240 Output: Urine 950 1100 Other: Voiding Method Indwelling Catheter Indwelling Catheter Indwelling Catheter - Labs CBC & Chem 7: 12/14/24 06:21 12/14/24 06:21 Labs: Abnormal Lab Results - Last 24 Hours (Table) 12/13/24 12/13/24 12/14/24 Range/Units 16:21 20:24 06:21 WBC 17.15 H (4.50-10.00) 10*3/uL RBC 3.24 L (4.40-5.60) 10*6/uL Hgb 8.8 L (13.0-17.0) g/dL Hct 27.3 L (39.6-50.0) % Chloride (98-107) mmol/L Carbon Dioxide (22-30) mmol/L BUN (9-20) mg/dL Creatinine (0.66-1.25) mg/dL POC Glucose (mg/dL) 320 H 266 H (70-110) mg/dL 12/14/24 12/14/24 Range/Units 06:21 11:29 WBC (4.50-10.00) 10*3/uL RBC (4.40-5.60) 10*6/uL Hgb (13.0-17.0) g/dL Hct (39.6-50.0) % Chloride 108 H (98-107) mmol/L Carbon Dioxide 21 L (22-30) mmol/L BUN 61 H (9-20) mg/dL Creatinine 1.95 H (0.66-1.25) mg/dL POC Glucose (mg/dL) 143 H (70-110) mg/dL
[2024-12-14 16:40] LABS: Glucose,Whole Blood 305 mg/dL (70-110)
[2024-12-14 20:39] LABS: Glucose,Whole Blood 296 mg/dL (70-110)
--- NOTE | 2024-12-14 22:08 | P.GSCN ---
History of Present Illness Consult date: 12/14/24 Reason for Consult: Hydronephrosis Requesting physician: Macho Claudio History of present illness: The patient is a 74-year-old white male with a history of type 2 diabetes mellitus, hypertension, dyslipidemia, and stage IIIb CKD (secondary to crescentric glomerulonephritis) presented with flu-like symptoms including chills, nausea, vomiting, and abdominal pain. He denied dysuria and hematuria. He was diagnosed with a UTI and is receiving IV antibiotics. Urine and blood cultures have shown Proteus. The patient states that he was treated for 1 UTI in the past. He denies any history of urolithiasis. A Cadena catheter was placed in the ER at the time of admission. Both ultrasound and CT scan obtained at the time of admission showed evidence of bilateral hydronephrosis. Left renal atrophy was also noted. 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 Past Psychological History: No Psychological Hx Reported Smoking Status: Former smoker Past Alcohol Use History: Rare Past Drug Use History: Marijuana - Past Family History Father Family Medical History: Diabetes Mellitus, Myocardial Infarction (MS) Additional Family Medical History / Comment(s): Had leg amputation Mother History Unknown: Yes Family Medical History: No Reported History Sister(s) Family Medical History: Diabetes Mellitus Additional Family Medical History / Comment(s): 1 sister had arm amputated due to diabetes Medications and Allergies Home Medications Medication Instructions Recorded Confirmed Type Acetaminophen Tab [Tylenol] 650 mg PO Q8H PRN 11/17/23 12/07/24 History Magnesium Oxide [Mag-Ox] 400 mg PO DAILY 11/17/23 12/07/24 History Metoprolol Tartrate [Lopressor] 50 mg PO BID-W/MEALS 11/17/23 12/07/24 History Insulin NPH Hum/Reg Insulin Hm 10 unit SQ BID 12/17/23 12/07/24 History [humuLIN 70/30 Kwikpen] predniSONE [Deltasone] 20 mg PO DAILY #30 tab 12/20/23 12/07/24 Rx mycophenolate mofetiL [Cellcept] 250 mg PO BID 04/01/24 12/07/24 History Aspirin EC [Ecotrin Low Dose] 81 mg PO DAILY 09/24/24 12/07/24 History Atorvastatin [Lipitor] 40 mg PO DAILY 09/24/24 12/07/24 History Isosorbide Mononitrate ER [Imdur] 30 mg PO DAILY 12/07/24 12/07/24 History SILVER sulfADIAZINE Cream 1 applic TOPICAL BID 12/07/24 12/07/24 History [Silvadene 1% Cream] Torsemide [Demadex] 20 mg PO BID-W/MEALS 12/07/24 12/07/24 History Allergies Allergy/AdvReac Type Severity Reaction Status Date / Time No Known Allergies Allergy Verified 12/07/24 08:12 Surgical - Exam Vital Signs Temp Pulse Resp BP Pulse Ox 99.0 F 123 H 18 107/54 98 12/07/24 00:27 12/07/24 00:27 12/07/24 00:27 12/07/24 00:27 12/07/24 00:27 - General well developed, well nourished, no distress - Respiratory normal respiratory effort - Genitourinary Moderate penoscrotal edema. Normal testes. - Rectum Normal anal sphincter tone, no rectal mass. The rectal vault is filled with stool. The prostate is palpably normal. - Psychiatric oriented to time, oriented to person, oriented to place, speech is normal, memory intact Results - Labs 12/14/24 06:21 12/14/24 06:21 Abnormal Lab Results - Last 24 Hours (Table) 12/13/24 12/14/24 12/14/24 Range/Units 20:24 06:21 06:21 WBC 17.15 H (4.50-10.00) 10*3/uL RBC 3.24 L (4.40-5.60) 10*6/uL Hgb 8.8 L (13.0-17.0) g/dL Hct 27.3 L (39.6-50.0) % Chloride 108 H (98-107) mmol/L Carbon Dioxide 21 L (22-30) mmol/L BUN 61 H (9-20) mg/dL Creatinine 1.95 H (0.66-1.25) mg/dL POC Glucose (mg/dL) 266 H (70-110) mg/dL 12/14/24 12/14/24 Range/Units 11:29 16:33 WBC (4.50-10.00) 10*3/uL RBC (4.40-5.60) 10*6/uL Hgb (13.0-17.0) g/dL Hct (39.6-50.0) % Chloride (98-107) mmol/L Carbon Dioxide (22-30) mmol/L BUN (9-20) mg/dL Creatinine (0.66-1.25) mg/dL POC Glucose (mg/dL) 143 H 305 H (70-110) mg/dL Diabetes panel 12/14/24 Range/Units 06:21 Sodium 137 (137-145) mmol/L Potassium 3.6 (3.5-5.1) mmol/L Chloride 108 H (98-107) mmol/L Carbon Dioxide 21 L (22-30) mmol/L BUN 61 H (9-20) mg/dL Creatinine 1.95 H (0.66-1.25) mg/dL Glucose 96 (74-99) mg/dL Calcium 8.6 (8.4-10.2) mg/dL Calcium panel 12/14/24 Range/Units 06:21 Calcium 8.6 (8.4-10.2) mg/dL Pituitary panel 12/14/24 Range/Units 06:21 Sodium 137 (137-145) mmol/L Potassium 3.6 (3.5-5.1) mmol/L Chloride 108 H (98-107) mmol/L Carbon Dioxide 21 L (22-30) mmol/L BUN 61 H (9-20) mg/dL Creatinine 1.95 H (0.66-1.25) mg/dL Glucose 96 (74-99) mg/dL Calcium 8.6 (8.4-10.2) mg/dL Adrenal panel 12/14/24 Range/Units 06:21 Sodium 137 (137-145) mmol/L Potassium 3.6 (3.5-5.1) mmol/L Chloride 108 H (98-107) mmol/L Carbon Dioxide 21 L (22-30) mmol/L BUN 61 H (9-20) mg/dL Creatinine 1.95 H (0.66-1.25) mg/dL Glucose 96 (74-99) mg/dL Calcium 8.6 (8.4-10.2) mg/dL - Imaging CT scan - abdomen: report reviewed, image reviewed US - kidney/bladder: report reviewed Assessment and Plan (1) Hydronephrosis Current Visit: No Status: Acute Code(s): N13.30 - UNSPECIFIED HYDRONEPHROSIS SNOMED Code(s): 54013719 (2) UTI (urinary tract infection) Current Visit: Yes Status: Acute Code(s): N39.0 - URINARY TRACT INFECTION, SITE NOT SPECIFIED SNOMED Code(s): 20301281 Plan: Continue ceftriaxone. Continue Cadena catheter. The bladder appeared moderately distended when the CT scan was obtained, and this may be the cause of the hydronephrosis. I have ordered a repeat renal ultrasound to determine whether the hydronephrosis has resolved with Cadena catheter drainage. Time with Patient: Greater than 30
[2024-12-15 05:46] LABS: Glucose,Whole Blood 220 mg/dL (70-110)
[2024-12-15 07:23] LABS: HCT 25.8 % (39.6-50.0); HGB 8.3 g/dL (13.0-17.0); MCH 27.1 pg (27.0-32.0); MCHC 32.2 g/dL (32.0-37.0); MCV 84.3 fL (80.0-97.0); Mean Platelet Volume 10.6 fL (9.5-12.2); Platelet Count 270 10*3/uL (140-440); RBC 3.06 10*6/uL (4.40-5.60); RDW 17.3 % (11.5-14.5); WBC 17.48 10*3/uL (4.50-10.00)
[2024-12-15 07:34] LABS: African American GFR (CKD) 40 (>60 ml/min/1.73 sqM); Anion Gap 10 mmol/L; Blood Urea Nitrogen 59 mg/dL (9-20); Calcium 8.5 mg/dL (8.4-10.2); Carbon Dioxide 17 mmol/L (22-30); Chloride 109 mmol/L (98-107); Glucose 161 mg/dL (74-99); Non-African American GFR(CKD) 35 (>60 ml/min/1.73 sqM); Potassium 3.8 mmol/L (3.5-5.1); Sodium 136 mmol/L (137-145)
--- NOTE | 2024-12-15 08:00 | US ---
EXAMINATION TYPE: US kidneys/renal and bladder DATE OF EXAM: 12/15/2024 COMPARISON: 12/07/2024 CLINICAL INDICATION: Male, 74 years old with history of Hydronephrosis; Patient denies any signs or s ymptoms TECHNIQUE: Grayscale imaging of the bilateral kidneys and urinary bladder: FINDINGS: EXAM MEASUREMENTS: Right Kidney: 12.5 x 6.0 x 6.1 cm Left Kidney: 12.3 x 5.6 x 4.6 cm Post Void Residual Volume: NA mL Right Kidney: wnl, no evidence for hydronephrosis, mass or renal calculus; Simple cyst redemonstrated Left Kidney: limited visualization due to overlying bowel gas . Some hydroureter is not excluded Bladder: Not fully distended, waldron noted within Bilateral Jets seen: Not able to assess Normal Post Void Residual: NA IMPRESSION: 1. Limited examination with bowel gas and Waldron catheter present. 2. No discrete abnormality is evident. There may be some mild left hydroureter present. 3. Right renal cyst [facility], , 12/15/2024 7:58 AM
--- NOTE | 2024-12-15 11:29 | P.PN ---
Subjective Patient is seen in follow-up for acute kidney injury on chronic kidney disease. Renal function stable. Admits to good urine output. Wants to go home. Denies chest pain or shortness of breath. No active complaints. Vital signs are stable. General: No acute distress. HEENT: Head exam is unremarkable. LUNGS: No audible rhonchi or wheezes. HEART: Rate and Rhythm are regular. ABDOMEN: Nontender. EXTREMITITES: Chronic changes noted. No edema. Right lower extremity dressing noted. Objective - Vital Signs Vital signs: Vital Signs Temp 98.3 F 12/15/24 08:10 Pulse 70 12/15/24 08:10 Resp 18 12/15/24 08:10 BP 122/74 12/15/24 08:10 Pulse Ox 100 12/15/24 08:10 FiO2 Intake & Output 12/14/24 12/15/24 12/15/24 18:59 06:59 18:59 Intake Total 840 250 10 Output Total 700 600 200 Balance 140 -350 -190 Weight 89.5 kg 59.5 kg Intake: IV 10 10 Invasive Line 3 10 10 Oral 840 240 Output: Urine 700 600 200 Other: Voiding Method Indwelling Catheter Indwelling Catheter Indwelling Catheter # Bowel Movements 1 1 - Labs CBC & Chem 7: 12/15/24 06:42 12/15/24 06:42 Labs: Abnormal Lab Results - Last 24 Hours (Table) 12/14/24 12/14/24 12/14/24 Range/Units 11:29 16:33 20:32 WBC (4.50-10.00) 10*3/uL RBC (4.40-5.60) 10*6/uL Hgb (13.0-17.0) g/dL Hct (39.6-50.0) % Sodium (137-145) mmol/L Chloride (98-107) mmol/L Carbon Dioxide (22-30) mmol/L BUN (9-20) mg/dL Creatinine (0.66-1.25) mg/dL Glucose (74-99) mg/dL POC Glucose (mg/dL) 143 H 305 H 296 H (70-110) mg/dL 12/15/24 12/15/24 12/15/24 Range/Units 05:34 06:42 06:42 WBC 17.48 H (4.50-10.00) 10*3/uL RBC 3.06 L (4.40-5.60) 10*6/uL Hgb 8.3 L (13.0-17.0) g/dL Hct 25.8 L (39.6-50.0) % Sodium 136 L (137-145) mmol/L Chloride 109 H (98-107) mmol/L Carbon Dioxide 17 L (22-30) mmol/L BUN 59 H (9-20) mg/dL Creatinine 1.87 H (0.66-1.25) mg/dL Glucose 161 H (74-99) mg/dL POC Glucose (mg/dL) 220 H (70-110) mg/dL Assessment and Plan Plan: Assessment: 1. Acute kidney injury secondary to ATN secondary to severe sepsis and obstructive uropathy. Bilateral hydronephrosis noted on ultrasound. Creatinine 2.9 on admission and is 1.87 today. 2. 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 3. Lower extremity cellulitis. Also with Proteus UTI and bacteremia. Has received antibiotics this admission. Infectious disease following. 4. Chronic systolic CHF ejection fraction of 30 to 35%. 5. Anemia of chronic kidney disease maintained on Aranesp. 6. Bilateral hydronephrosis. Urology following. Currently has Cadena catheter. 7. Metabolic acidosis secondary to acute kidney injury. Plan: Encouraged oral intake. Avoid nephrotoxins. Increase bicarb frequency to twice daily. Hold CellCept for now due to acute infection. Can resume in the next 4 to 5 days as infection improves. Follow-up outpatient 1 to 2 weeks postdischarge.
[2024-12-15 11:49] LABS: Glucose,Whole Blood 257 mg/dL (70-110)
--- NOTE | 2024-12-15 15:08 | P.PN ---
Subjective Progress Note Date: 12/15/24 Subjective: No new complaints. Patient is now agreeable to rehab at [facility]. Pending insurance authorization. Gen: In NAD, non-toxic HEENT: normocephalic, atraumatic, hearing acuity is intant, mucous membranes moist CVS: perfusing all extremities well, no pitting edema, Respiratory: symmetric chest expansion, no accessory muscle use, GI: soft, NTTP, ND, : no suprapubic tenderness, no CVA tenderness MSK/Derm: no rashes, cyanosis Neuro: CN II-XII intact, no motor weakness, Psych: cooperative, euthymic mood, judgment and insight is intact Assessment and Plan: Active: Acute right leg DVT Right leg cellulitis Sepsis Proteus bacteremia Urinary tract infection - Continue on Eliquis 10 twice daily - continue on IV ceftriaxone 2 g every 24 hours - ID consulted, likely Proteus secondary to urinary tract infection - Continue to hold Imdur and torsemide - Vesiculobullous rash concerning for possible CellCept induced. However, no recent changes and his CellCept dose suggest otherwise. 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 Bilateral hydroureteronephrosis hypovolemic hyponatremia, improving Hypokalemia, resolved Anion gap metabolic acidosis, improving -Cadena catheter in place - Continue CellCept 250 twice daily, prednisone 20 daily - Nephrology following - continue to hold torsemide -Continue on normal saline 70 cc an hour Elevated troponin - Likely in the setting of CKD - No active chest pain - Continue aspirin and statin Type 2 diabetes - Continue home 70/30 insulin 10 units twice daily - Sliding scale insulin, monitor for hypoglycemia Resolved: Lactic acidosis Chronic: HFrEF 30 to 35% Hypertension Dyslipidemia DVT ppx: Eliquis Code status: Full code Anticipated discharge place: Pending PT evaluation Anticipated discharge time: Pending clinical course Objective - Vital Signs Vital signs: Vital Signs Temp 98.3 F 12/15/24 08:10 Pulse 77 12/15/24 11:23 Resp 18 12/15/24 11:23 BP 99/64 12/15/24 11:23 Pulse Ox 99 12/15/24 11:23 FiO2 Intake & Output 12/14/24 12/15/24 12/15/24 18:59 06:59 18:59 Intake Total 840 250 10 Output Total 021 457 2561 Balance 140 -350 -990 Weight 89.5 kg 59.5 kg Intake: IV 10 10 Invasive Line 3 10 10 Oral 840 240 Output: Urine 554 206 9321 Other: Voiding Method Indwelling Catheter Indwelling Catheter Indwelling Catheter # Bowel Movements 1 1 1 - Labs CBC & Chem 7: 12/15/24 06:42 12/15/24 06:42 Labs: Abnormal Lab Results - Last 24 Hours (Table) 12/14/24 12/14/24 12/15/24 Range/Units 16:33 20:32 05:34 WBC (4.50-10.00) 10*3/uL RBC (4.40-5.60) 10*6/uL Hgb (13.0-17.0) g/dL Hct (39.6-50.0) % Sodium (137-145) mmol/L Chloride (98-107) mmol/L Carbon Dioxide (22-30) mmol/L BUN (9-20) mg/dL Creatinine (0.66-1.25) mg/dL Glucose (74-99) mg/dL POC Glucose (mg/dL) 305 H 296 H 220 H (70-110) mg/dL 12/15/24 12/15/24 12/15/24 Range/Units 06:42 06:42 11:48 WBC 17.48 H (4.50-10.00) 10*3/uL RBC 3.06 L (4.40-5.60) 10*6/uL Hgb 8.3 L (13.0-17.0) g/dL Hct 25.8 L (39.6-50.0) % Sodium 136 L (137-145) mmol/L Chloride 109 H (98-107) mmol/L Carbon Dioxide 17 L (22-30) mmol/L BUN 59 H (9-20) mg/dL Creatinine 1.87 H (0.66-1.25) mg/dL Glucose 161 H (74-99) mg/dL POC Glucose (mg/dL) 257 H (70-110) mg/dL
--- NOTE | 2024-12-15 16:47 | P.PN ---
Subjective Progress Note Date: 12/15/24 Principal diagnosis: Reason for follow-up is Proteus UTI and bacteremia Patient is a 74-year-old male with a past medical history significant for diabetes mellitus hypertension hyperlipidemia renal disease heart failure presenting to the hospital for generalized weakness abdominal pain and right lower extremity swelling, patient did have positive blood culture with the Proteus prompting this consultation. On today's evaluation that is 12/15/2024, Patient is afebrile this morning patient denies having any chest pain shortness of breath or cough, the patient is currently on room air, patient denies any abdominal pain no diarrhea no nausea no vomiting. The patient white count is elevated to 17.48 creatinine is 1.87 Objective - Vital Signs Vital signs: Vital Signs Temp 98.3 F 12/15/24 08:10 Pulse 77 12/15/24 11:23 Resp 18 12/15/24 11:23 BP 99/64 12/15/24 11:23 Pulse Ox 99 12/15/24 11:23 FiO2 Intake & Output 12/14/24 12/15/24 12/15/24 18:59 06:59 18:59 Intake Total 840 250 10 Output Total 326 769 4414 Balance 140 -350 -990 Weight 89.5 kg 59.5 kg Intake: IV 10 10 Invasive Line 3 10 10 Oral 840 240 Output: Urine 228 257 3019 Other: Voiding Method Indwelling Catheter Indwelling Catheter Indwelling Catheter # Bowel Movements 1 1 - Exam GENERAL DESCRIPTION: An elderly male lying in bed in no distress RESPIRATORY SYSTEM: Unlabored breathing , decreased breath sounds at bases HEART: S1 S2 regular rate and rhythm , ABDOMEN: Soft , no tenderness EXTREMITIES: Right lower extremity diffuse swelling and some blisters - Labs CBC & Chem 7: 12/15/24 06:42 12/15/24 06:42 Labs: Abnormal Lab Results - Last 24 Hours (Table) 12/14/24 12/14/24 12/15/24 Range/Units 16:33 20:32 05:34 WBC (4.50-10.00) 10*3/uL RBC (4.40-5.60) 10*6/uL Hgb (13.0-17.0) g/dL Hct (39.6-50.0) % Sodium (137-145) mmol/L Chloride (98-107) mmol/L Carbon Dioxide (22-30) mmol/L BUN (9-20) mg/dL Creatinine (0.66-1.25) mg/dL Glucose (74-99) mg/dL POC Glucose (mg/dL) 305 H 296 H 220 H (70-110) mg/dL 12/15/24 12/15/24 12/15/24 Range/Units 06:42 06:42 11:48 WBC 17.48 H (4.50-10.00) 10*3/uL RBC 3.06 L (4.40-5.60) 10*6/uL Hgb 8.3 L (13.0-17.0) g/dL Hct 25.8 L (39.6-50.0) % Sodium 136 L (137-145) mmol/L Chloride 109 H (98-107) mmol/L Carbon Dioxide 17 L (22-30) mmol/L BUN 59 H (9-20) mg/dL Creatinine 1.87 H (0.66-1.25) mg/dL Glucose 161 H (74-99) mg/dL POC Glucose (mg/dL) 257 H (70-110) mg/dL Assessment and Plan (1) UTI (urinary tract infection) Current Visit: Yes Status: Acute Code(s): N39.0 - URINARY TRACT INFECTION, SITE NOT SPECIFIED SNOMED Code(s): 27450323 (2) Positive blood cultures Current Visit: Yes Status: Acute Code(s): R78.81 - BACTEREMIA SNOMED Code(s): 719019755 (3) Cellulitis of right leg Current Visit: Yes Status: Acute Code(s): L03.115 - CELLULITIS OF RIGHT LOWER LIMB SNOMED Code(s): 34735956089100851 Plan: 1patient with gram-negative bacteremia identified as Proteus species source is likely urinary as urine is growing the same pathogen and apparently sensitive pathogen as reported by the pharmacist with the full sensitivities are currently pending patient did have mild left-sided hydronephrosis on the ultrasound did not mention any stone or renal abscess and no evidence of any colitis 2patient also have swelling and redness of right lower extremity concerning for possible component of cellulitis, 3the patient is afebrile white count is slightly elevated more likely related to the prednisone as no evidence of any worsening condition, patient completed course of IV Rocephin will transition to oral Keflex for another week and monitor clinical course closely Dictation was produced using [employer] dictation software. please excuse any grammatical, word or spelling errors. Time with Patient: Less than 30
--- NOTE | 2024-12-15 16:47 | P.PN ---
Subjective Progress Note Date: 12/14/24 Principal diagnosis: Reason for follow-up is Proteus UTI and bacteremia Patient is a 74-year-old male with a past medical history significant for diabetes mellitus hypertension hyperlipidemia renal disease heart failure presenting to the hospital for generalized weakness abdominal pain and right lower extremity swelling, patient did have positive blood culture with the Proteus prompting this consultation. On today's evaluation that is 12/14/2024, patient has been afebrile, patient is breathing comfortably and is currently on room air, patient denies having any ch est pain and cough, patient denies nausea vomiting or diarrhea and no abdominal pain denies pain to the right lower extremity. Patient white count slightly up to 17.95, creatinine is 1.95 Objective - Vital Signs Vital signs: Vital Signs Temp 97.7 F 12/14/24 08:59 Pulse 69 12/14/24 09:00 Resp 16 12/14/24 09:00 BP 107/69 12/14/24 08:59 Pulse Ox 100 12/14/24 08:59 FiO2 Intake & Output 12/13/24 12/14/24 12/14/24 18:59 06:59 18:59 Intake Total 148 730 240 Output Total 950 1100 Balance -802 -370 240 Weight 89.5 kg 89.5 kg Intake: IV 30 10 Invasive Line 1 10 Invasive Line 3 20 10 Oral 118 720 240 Output: Urine 950 1100 Other: Voiding Method Indwelling Catheter Indwelling Catheter Indwelling Catheter - Exam GENERAL DESCRIPTION: An elderly male lying in bed in no distress RESPIRATORY SYSTEM: Unlabored breathing , decreased breath sounds at bases HEART: S1 S2 regular rate and rhythm , ABDOMEN: Soft , no tenderness EXTREMITIES: Right lower extremity diffuse swelling and some blisters - Labs CBC & Chem 7: 12/15/24 06:42 12/15/24 06:42 Labs: Abnormal Lab Results - Last 24 Hours (Table) 12/13/24 12/13/24 12/13/24 Range/Units 11:54 16:21 20:24 WBC (4.50-10.00) 10*3/uL RBC (4.40-5.60) 10*6/uL Hgb (13.0-17.0) g/dL Hct (39.6-50.0) % Chloride (98-107) mmol/L Carbon Dioxide (22-30) mmol/L BUN (9-20) mg/dL Creatinine (0.66-1.25) mg/dL POC Glucose (mg/dL) 196 H 320 H 266 H (70-110) mg/dL 12/14/24 12/14/24 Range/Units 06:21 06:21 WBC 17.15 H (4.50-10.00) 10*3/uL RBC 3.24 L (4.40-5.60) 10*6/uL Hgb 8.8 L (13.0-17.0) g/dL Hct 27.3 L (39.6-50.0) % Chloride 108 H (98-107) mmol/L Carbon Dioxide 21 L (22-30) mmol/L BUN 61 H (9-20) mg/dL Creatinine 1.95 H (0.66-1.25) mg/dL POC Glucose (mg/dL) (70-110) mg/dL Assessment and Plan (1) UTI (urinary tract infection) Current Visit: Yes Status: Acute Code(s): N39.0 - URINARY TRACT INFECTION, SITE NOT SPECIFIED SNOMED Code(s): 04182230 (2) Positive blood cultures Current Visit: Yes Status: Acute Code(s): R78.81 - BACTEREMIA SNOMED Code(s): 260764719 (3) Cellulitis of right leg Current Visit: Yes Status: Acute Code(s): L03.115 - CELLULITIS OF RIGHT LOWER LIMB SNOMED Code(s): 40101500576872820 Plan: 1patient with gram-negative bacteremia identified as Proteus species source is likely urinary as urine is growing the same pathogen and apparently sensitive pathogen as reported by the pharmacist with the full sensitivities are currently pending patient did have mild left-sided hydronephrosis on the ultrasound did not mention any stone or renal abscess and no evidence of any colitis 2patient also have swelling and redness of right lower extremity concerning for possible component of cellulitis, 3the patient is afebrile white count is slightly elevated more likely related to the prednisone as no evidence of any worsening condition, patient currently on Rocephin to continue antibiotic clinical course closely Dictation was produced using [employer]ation software. please excuse any grammatical, word or spelling errors. Time with Patient: Less than 30
[2024-12-15 16:56] LABS: Glucose,Whole Blood 318 mg/dL (70-110)
[2024-12-15] MEDS ORDERED: CEPHALEXIN 500 MG CAP PO SCH (17:00)
[2024-12-15] MEDS: CEPHALEXIN 500 MG CAP PO SCH (17:17)
[2024-12-15 20:07] LABS: Glucose,Whole Blood 150 mg/dL (70-110)
[2024-12-15] MEDS: SODIUM BICARBONATE TAB 650 MG TAB PO SCH (20:48)
[2024-12-16 06:10] LABS: Glucose,Whole Blood 127 mg/dL (70-110)
[2024-12-16 09:05] LABS: Basophils # (A) 0.03 10*3/uL (0.00-0.10); Basophils % (A) 0.2 %; Eosinophils # (A) 0.02 10*3/uL (0.04-0.35); Eosinophils % (A) 0.1 %; HCT 30.4 % (39.6-50.0); HGB 9.5 g/dL (13.0-17.0); Lymphocytes # (A) 0.98 10*3/uL (0.90-5.00); Lymphocytes % (A) 6.1 %; MCH 27.5 pg (27.0-32.0); MCHC 31.3 g/dL (32.0-37.0); MCV 88.1 fL (80.0-97.0); Monocytes # (A) 0.87 10*3/uL (0.20-1.00); Monocytes % (A) 5.5 %; Neutrophils # (A) 13.35 10*3/uL (1.80-7.70); Neutrophils % (A) 83.8 %; Platelet Count 251 10*3/uL (140-440); RBC 3.45 10*6/uL (4.40-5.60); RDW 17.7 % (11.5-14.5); WBC 15.94 10*3/uL (4.50-10.00)
[2024-12-16 09:18] LABS: African American GFR (CKD) 40 (>60 ml/min/1.73 sqM); Anion Gap 10 mmol/L; Blood Urea Nitrogen 58 mg/dL (9-20); Calcium 8.5 mg/dL (8.4-10.2); Carbon Dioxide 19 mmol/L (22-30); Chloride 108 mmol/L (98-107); Glucose 97 mg/dL (74-99); Magnesium 1.8 mg/dL (1.6-2.3); Non-African American GFR(CKD) 35 (>60 ml/min/1.73 sqM); Potassium 4.1 mmol/L (3.5-5.1); Sodium 137 mmol/L (137-145)
--- NOTE | 2024-12-16 10:06 | P.PN ---
Subjective Patient is seen in follow-up for acute kidney injury on chronic kidney disease. Renal function stable. has Cadena catheter. Denies chest pain or shortness of breath. No active complaints. Vital signs are stable. General: No acute distress. HEENT: Head exam is unremarkable. LUNGS: No audible rhonchi or wheezes. HEART: Rate and Rhythm are regular. ABDOMEN: Nontender. EXTREMITITES: Chronic changes noted. No edema. Right lower extremity dressing noted. Objective - Vital Signs Vital signs: Vital Signs Temp 97.7 F 12/16/24 07:36 Pulse 68 12/16/24 07:36 Resp 17 12/16/24 07:36 BP 144/83 12/16/24 07:36 Pulse Ox 98 12/16/24 07:36 FiO2 Intake & Output 12/15/24 12/16/24 12/16/24 18:59 06:59 18:59 Intake Total 20 10 Output Total 1000 1400 Balance -980 -1390 Intake: IV 20 10 Invasive Line 3 20 10 Output: Urine 1000 1400 Other: Voiding Method Indwelling Catheter Indwelling Catheter # Bowel Movements 1 1 - Labs CBC & Chem 7: 12/16/24 08:32 12/16/24 08:32 Labs: Abnormal Lab Results - Last 24 Hours (Table) 12/15/24 12/15/24 12/15/24 Range/Units 11:48 16:55 20:07 WBC (4.50-10.00) 10*3/uL RBC (4.40-5.60) 10*6/uL Hgb (13.0-17.0) g/dL Hct (39.6-50.0) % MCHC (32.0-37.0) g/dL RDW (11.5-14.5) % Immature Gran # (0.00-0.04) 10*3/uL Neutrophils # (1.80-7.70) 10*3/uL Eosinophils # (0.04-0.35) 10*3/uL Chloride (98-107) mmol/L Carbon Dioxide (22-30) mmol/L BUN (9-20) mg/dL Creatinine (0.66-1.25) mg/dL POC Glucose (mg/dL) 257 H 318 H 150 H (70-110) mg/dL 12/16/24 12/16/24 12/16/24 Range/Units 06:08 08:32 08:32 WBC 15.94 H (4.50-10.00) 10*3/uL RBC 3.45 L (4.40-5.60) 10*6/uL Hgb 9.5 L (13.0-17.0) g/dL Hct 30.4 L (39.6-50.0) % MCHC 31.3 L (32.0-37.0) g/dL RDW 17.7 H (11.5-14.5) % Immature Gran # 0.69 H (0.00-0.04) 10*3/uL Neutrophils # 13.35 H (1.80-7.70) 10*3/uL Eosinophils # 0.02 L (0.04-0.35) 10*3/uL Chloride 108 H (98-107) mmol/L Carbon Dioxide 19 L (22-30) mmol/L BUN 58 H (9-20) mg/dL Creatinine 1.86 H (0.66-1.25) mg/dL POC Glucose (mg/dL) 127 H (70-110) mg/dL Assessment and Plan Plan: Assessment: 1. Acute kidney injury secondary to ATN secondary to severe sepsis and obstructive uropathy. Bilateral hydronephrosis noted on ultrasound. Creatinine 2.9 on admission and is stable at 1.86 today. 2. 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 3. Lower extremity cellulitis. Also with Proteus UTI and bacteremia. Has received antibiotics this admission. Infectious disease following. 4. Chronic systolic CHF ejection fraction of 30 to 35%. 5. Anemia of chronic kidney disease maintained on Aranesp. 6. Bilateral hydronephrosis. Urology following. Currently has Cadena catheter. 7. Metabolic acidosis secondary to acute kidney injury. On bicarb. Better. Plan: Encouraged oral intake. Avoid nephrotoxins. CellCept held starting December 16, 2024 due to acute infection. Can resume in the next 4 to 5 days as infection improves. Follow-up outpatient 1 to 2 weeks postdischarge.
[2024-12-16 11:44] LABS: Glucose,Whole Blood 189 mg/dL (70-110)
--- NOTE | 2024-12-16 12:13 | P.PN ---
Subjective Progress Note Date: 12/16/24 Subjective: No new complaints. Patient is now agreeable to rehab at [facility]. Pending insurance authorization. Gen: In NAD, non-toxic HEENT: normocephalic, atraumatic, hearing acuity is intant, mucous membranes moist CVS: perfusing all extremities well, no pitting edema, Respiratory: symmetric chest expansion, no accessory muscle use, GI: soft, NTTP, ND, : no suprapubic tenderness, no CVA tenderness MSK/Derm: right lower extremity covered in dressing Neuro: CN II-XII intact, no motor weakness, Psych: cooperative, euthymic mood, judgment and insight is intact WBC 15.94, Hgb 9.5, hco3 19, cr 1.86, BS range between 150-189 Assessment and Plan: Active: Acute right leg DVT Right leg cellulitis Sepsis Proteus bacteremia Urinary tract infection - Continue on Eliquis 5 BID - continue on keflex 500 q12 hr - ID following - Continue to hold Imdur and torsemide Normocytic anemia, stable Slight hematuria, resolved - Continue to monitor CBC - On Eliquis - on darbepoetin weekly VANIA on CKD stage III, improving 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 Bilateral hydroureteronephrosis hypovolemic hyponatremia, improving Hypokalemia, resolved metabolic acidosis -Cadena catheter in place - Continue prednisone 20 daily - Nephrology note reviewed, restart cellcept in 4-5 days, on sodium bicarb PO 650 BID - continue to hold torsemide -off fluids Elevated troponin - Likely in the setting of CKD - No active chest pain - Continue aspirin and statin Type 2 diabetes - Continue home 70/30 insulin 10 units twice daily - Sliding scale insulin, monitor for hypoglycemia Resolved: Lactic acidosis Chronic: HFrEF 30 to 35% Hypertension Dyslipidemia DVT ppx: Eliquis Code status: Full code Anticipated discharge place: Pending rehab Anticipated discharge time: Pending clinical course Objective - Vital Signs Vital signs: Vital Signs Temp 97.7 F 12/16/24 07:36 Pulse 68 12/16/24 07:36 Resp 17 12/16/24 07:36 BP 144/83 12/16/24 07:36 Pulse Ox 98 12/16/24 07:36 FiO2 Intake & Output 12/15/24 12/16/24 12/16/24 18:59 06:59 18:59 Intake Total 20 10 Output Total 1000 1400 Balance -980 -1390 Intake: IV 20 10 Invasive Line 3 20 10 Output: Urine 1000 1400 Other: Voiding Method Indwelling Catheter Indwelling Catheter # Bowel Movements 1 1 - Labs CBC & Chem 7: 12/16/24 08:32 12/16/24 08:32 Labs: Abnormal Lab Results - Last 24 Hours (Table) 12/15/24 12/15/24 12/16/24 Range/Units 16:55 20:07 06:08 WBC (4.50-10.00) 10*3/uL RBC (4.40-5.60) 10*6/uL Hgb (13.0-17.0) g/dL Hct (39.6-50.0) % MCHC (32.0-37.0) g/dL RDW (11.5-14.5) % Immature Gran # (0.00-0.04) 10*3/uL Neutrophils # (1.80-7.70) 10*3/uL Eosinophils # (0.04-0.35) 10*3/uL Chloride (98-107) mmol/L Carbon Dioxide (22-30) mmol/L BUN (9-20) mg/dL Creatinine (0.66-1.25) mg/dL POC Glucose (mg/dL) 318 H 150 H 127 H (70-110) mg/dL 12/16/24 12/16/24 12/16/24 Range/Units 08:32 08:32 11:42 WBC 15.94 H (4.50-10.00) 10*3/uL RBC 3.45 L (4.40-5.60) 10*6/uL Hgb 9.5 L (13.0-17.0) g/dL Hct 30.4 L (39.6-50.0) % MCHC 31.3 L (32.0-37.0) g/dL RDW 17.7 H (11.5-14.5) % Immature Gran # 0.69 H (0.00-0.04) 10*3/uL Neutrophils # 13.35 H (1.80-7.70) 10*3/uL Eosinophils # 0.02 L (0.04-0.35) 10*3/uL Chloride 108 H (98-107) mmol/L Carbon Dioxide 19 L (22-30) mmol/L BUN 58 H (9-20) mg/dL Creatinine 1.86 H (0.66-1.25) mg/dL POC Glucose (mg/dL) 189 H (70-110) mg/dL
[2024-12-16 16:56] LABS: Glucose,Whole Blood 230 mg/dL (70-110)
--- NOTE | 2024-12-16 17:14 | P.PN ---
Subjective Progress Note Date: 12/16/24 Principal diagnosis: Proteus UTI, hydronephrosis Urine and blood cultures have shown Proteus, for which the patient is currently receiving Keflex. Ultrasound yesterday showed evidence of residual left hydroureter, but no hydronephrosis. Presumably, the hydronephrosis has resolved as a result of Cadena catheter drainage. The amount of urine obtained upon catheter placement was not recorded. Objective - Vital Signs Vital signs: Vital Signs Temp 98 F 12/16/24 01:46 Pulse 72 12/16/24 01:46 Resp 16 12/16/24 01:46 BP 167/100 12/16/24 01:46 Pulse Ox 99 12/16/24 01:46 FiO2 Intake & Output 12/15/24 12/15/24 12/16/24 06:59 18:59 06:59 Intake Total 250 20 10 Output Total 600 1000 1400 Balance -415 -980 -4690 Weight 59.5 kg Intake: IV 10 20 10 Invasive Line 3 10 20 10 Oral 240 Output: Urine 600 1000 1400 Other: Voiding Method Indwelling Catheter Indwelling Catheter Indwelling Catheter # Bowel Movements 1 1 1 - Constitutional General appearance: Present: average body habitus, cooperative, no acute distress - Genitourinary Genitourinary Comment(s): Cadena catheter intact, draining clear urine. - Psychiatric Psychiatric: Present: A&O x's 3 - Labs CBC & Chem 7: 12/16/24 08:32 12/16/24 08:32 Labs: Abnormal Lab Results - Last 24 Hours (Table) 12/15/24 12/15/24 12/15/24 Range/Units 06:42 06:42 11:48 WBC 17.48 H (4.50-10.00) 10*3/uL RBC 3.06 L (4.40-5.60) 10*6/uL Hgb 8.3 L (13.0-17.0) g/dL Hct 25.8 L (39.6-50.0) % Sodium 136 L (137-145) mmol/L Chloride 109 H (98-107) mmol/L Carbon Dioxide 17 L (22-30) mmol/L BUN 59 H (9-20) mg/dL Creatinine 1.87 H (0.66-1.25) mg/dL Glucose 161 H (74-99) mg/dL POC Glucose (mg/dL) 257 H (70-110) mg/dL 12/15/24 12/15/24 12/16/24 Range/Units 16:55 20:07 06:08 WBC (4.50-10.00) 10*3/uL RBC (4.40-5.60) 10*6/uL Hgb (13.0-17.0) g/dL Hct (39.6-50.0) % Sodium (137-145) mmol/L Chloride (98-107) mmol/L Carbon Dioxide (22-30) mmol/L BUN (9-20) mg/dL Creatinine (0.66-1.25) mg/dL Glucose (74-99) mg/dL POC Glucose (mg/dL) 318 H 150 H 127 H (70-110) mg/dL Assessment and Plan (1) Hydronephrosis Current Visit: No Status: Acute Code(s): N13.30 - UNSPECIFIED HYDRONEPHROSIS SNOMED Code(s): 47709471 (2) UTI (urinary tract infection) Current Visit: Yes Status: Acute Code(s): N39.0 - URINARY TRACT INFECTION, SITE NOT SPECIFIED SNOMED Code(s): 68915177 Plan: Continue Keflex. Continue Cadena catheter. Begin tamsulosin and remove Cadena catheter for voiding trial once patient's condition has improved enough to warrant this.
[2024-12-16 20:55] LABS: Glucose,Whole Blood 214 mg/dL (70-110)
[2024-12-17 06:12] LABS: Glucose,Whole Blood 116 mg/dL (70-110)
--- NOTE | 2024-12-17 10:56 | P.PN ---
Subjective Patient is seen in follow-up for acute kidney injury on chronic kidney disease. Renal function stable. Has Cadena catheter. Denies chest pain or shortness of breath. No active complaints. Vital signs are stable. General: No acute distress. HEENT: Head exam is unremarkable. LUNGS: No audible rhonchi or wheezes. HEART: Rate and Rhythm are regular. ABDOMEN: Nontender. EXTREMITITES: Chronic changes noted. No edema. Right lower extremity dressing noted. Objective - Vital Signs Vital signs: Vital Signs Temp 97.5 F L 12/17/24 07:05 Pulse 74 12/17/24 07:05 Resp 17 12/17/24 07:05 BP 132/78 12/17/24 07:05 Pulse Ox 100 12/17/24 07:05 FiO2 Intake & Output 12/16/24 12/17/24 12/17/24 18:59 06:59 18:59 Intake Total 236 Output Total 700 700 Balance -700 -700 236 Weight 92.5 kg Intake: Oral 236 Output: Urine 700 700 Uretheral (Cadena) 700 Other: Voiding Method Indwelling Catheter Indwelling Catheter - Labs CBC & Chem 7: 12/16/24 08:32 12/16/24 08:32 Labs: Abnormal Lab Results - Last 24 Hours (Table) 12/16/24 12/16/24 12/16/24 Range/Units 11:42 16:50 20:54 POC Glucose (mg/dL) 189 H 230 H 214 H (70-110) mg/dL 12/17/24 Range/Units 06:10 POC Glucose (mg/dL) 116 H (70-110) mg/dL Assessment and Plan Plan: Assessment: 1. Acute kidney injury secondary to ATN secondary to severe sepsis and obstructive uropathy. Bilateral hydronephrosis noted on ultrasound. Creatinine 2.9 on admission - stable at 1.86 yesterday. 2. 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 3. Lower extremity cellulitis. Also with Proteus UTI and bacteremia. Has received antibiotics this admission. Infectious disease following. 4. Chronic systolic CHF ejection fraction of 30 to 35%. 5. Anemia of chronic kidney disease maintained on Aranesp. 6. Bilateral hydronephrosis. Urology following. Currently has Cadena catheter. 7. Metabolic acidosis secondary to acute kidney injury. On bicarb. Better. Plan: Encouraged oral intake. Avoid nephrotoxins. CellCept held starting December 16, 2024 due to acute infection. Can resume in the next 4 to 5 days postdischarge. Follow-up outpatient 1 to 2 weeks postdischarge.
[2024-12-17 11:39] LABS: Glucose,Whole Blood 184 mg/dL (70-110)
--- NOTE | 2024-12-17 14:07 | P.DS ---
Providers Date of admission: 12/07/24 05:49 Expected date of discharge: 12/17/24 Attending physician: Sheron Ragland MD Consults: 12/07/24 08:34 Consult Physician Routine Consulting Provider: Ericka Sheehan Consult Reason/Comments: adryan on ckd, glomerulonephritis Do you want consulting provider notified?: Yes 12/08/24 12:09 Consult Physician Routine Consulting Provider: Robert Loomis Consult Reason/Comments: bacteremia Do you want consulting provider notified?: Yes 12/14/24 10:58 Consult Physician Routine Consulting Provider: Sebastien Tomlinson Consult Reason/Comments: hydroephrosis Do you want consulting provider notified?: Yes Primary care physician: Stated None Hospital Course: Discharge Diagnosis: Acute right leg DVT Right leg cellulitis Sepsis Proteus bacteremia Urinary tract infection Normocytic anemia, stable Slight hematuria, resolved ADRYAN on CKD stage III 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 In the ED, temperature was 99, pulse 123, respiratory rate 18, blood pressure 107/54, saturating 98% on room air. WBC 17.65, hemoglobin 11.3, platelet 240, sodium 127, potassium 5.3, creatinine 2.94 above baseline, lactate 2.4 total bili 0.6, AST 30, ALT 35, ALP 140, CK 54, troponin 0.085, CRP 40.3, lipase 63. Urinalysis shows large leukocyte esterase, negative nitrates. EKG independently interpreted, shows sinus tachycardia. Lower extremity Doppler showed positive DVT from the right external iliac vein to the proximal calf veins. Abdomen pelvis CT showed asymmetric soft tissue swelling of the right lower extremity, likely secondary DVT L3 central compression deformity, T7 compression deformity both indeterminate age, bilateral hydroureteronephrosis with increased. Right lower extremity CT shows no evidence of necrotizing fasciitis, has soft tissue swelling concerning for edema secondary to her DVT and cellulitis. Patient was given 1 L of LR in the ED, also given IV Zosyn, IV vancomycin, started on h eparin drip. Nephrology and ID and urology were consulted. Urology not recommending any acute interventions. Patient did require Cadena catheter,, outpatient voiding trial. Blood cultures came back positive for Proteus as well as urine cultures showed the same bacteria. Patient was transition to IV ceftriaxone, eventually to oral Keflex. Heparin drip or transition to oral Eliquis. Diuretics were held, renal function improved. Patient now requires subacute rehab. CellCept to be held for another 5 days. Patient seen and examined at bedside. Vital signs reviewed and stable. Gen: In NAD, non-toxic HEENT: normocephalic, atraumatic, hearing acuity is intant, mucous membranes moist CVS: perfusing all extremities well, no pitting edema, Respiratory: symmetric chest expansion, no accessory muscle use, GI: soft, NTTP, ND, : no suprapubic tenderness, no CVA tenderness MSK/Derm: right lower extremity covered in dressing Neuro: CN II-XII intact, no motor weakness, Psych: cooperative, euthymic mood, judgment and insight is intact A total of 36 minutes of time were spent preparing this complex discharge summary. Patient was discharged on 12/17/2024 at 1344. Patient Condition at Discharge: Stable Plan - Discharge Summary Discharge Rx Participant: Yes New Discharge Prescriptions: New Famotidine [Pepcid] 20 mg PO DAILY tab Vits A & D-White Pet-Lanolin [Vitamin A & D Ointment] 1 applic TOPICAL BID each Cephalexin [Keflex] 500 mg PO Q12HR 6 Days #12 cap Sodium Bicarbonate Tab 650 mg PO BID tab Continue Metoprolol Tartrate [Lopressor] 50 mg PO BID-W/MEALS Magnesium Oxide [Mag-Ox] 400 mg PO DAILY Acetaminophen Tab [Tylenol] 650 mg PO Q8H PRN PRN Reason: Pain Aspirin EC [Ecotrin Low Dose] 81 mg PO DAILY Insulin NPH Hum/Reg Insulin Hm [humuLIN 70/30 Kwikpen] 10 unit SQ BID predniSONE [Deltasone] 20 mg PO DAILY #30 tab mycophenolate mofetiL [Cellcept] 250 mg PO BID Atorvastatin [Lipitor] 40 mg PO DAILY SILVER sulfADIAZINE Cream [Silvadene 1% Cream] 1 applic TOPICAL BID Discontinued Isosorbide Mononitrate ER [Imdur] 30 mg PO DAILY Torsemide [Demadex] 20 mg PO BID-W/MEALS Discharge Medication List Acetaminophen Tab [Tylenol] 650 mg PO Q8H PRN 11/17/23 [History] Magnesium Oxide [Mag-Ox] 400 mg PO DAILY 11/17/23 [History] Metoprolol Tartrate [Lopressor] 50 mg PO BID-W/MEALS 11/17/23 [History] Insulin NPH Hum/Reg Insulin Hm [humuLIN 70/30 Kwikpen] 10 unit SQ BID 12/17/23 [History] predniSONE [Deltasone] 20 mg PO DAILY #30 tab 12/20/23 [Rx] mycophenolate mofetiL [Cellcept] 250 mg PO BID 04/01/24 [History] Aspirin EC [Ecotrin Low Dose] 81 mg PO DAILY 09/24/24 [History] Atorvastatin [Lipitor] 40 mg PO DAILY 09/24/24 [History] SILVER sulfADIAZINE Cream [Silvadene 1% Cream] 1 applic TOPICAL BID 12/07/24 [History] Cephalexin [Keflex] 500 mg PO Q12HR 6 Days #12 cap 12/17/24 [Rx] Famotidine [Pepcid] 20 mg PO DAILY tab 12/17/24 [Rx] Sodium Bicarbonate Tab 650 mg PO BID tab 12/17/24 [Rx] Vits A & D-White Pet-Lanolin [Vitamin A & D Ointment] 1 applic TOPICAL BID each 12/17/24 [Rx] Follow up Appointment(s)/Referral(s): Macho Claudio DO [STAFF PHYSICIAN] - 1 Week Matthew Jacinto PAC [REFERRING] - 1-2 Days Patient Instructions/Handouts: Urinary Tract Infection in Men (DC), Cellulitis (GEN), Bacteremia (DC) Activity/Diet/Wound Care/Special Instructions: 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 Restart cellcept back on 12/22/24. Discharge/Stand Alone Forms: Who Do I Call?, Community Resources, Help In The Home Discharge Disposition: TRANSFER TO SNF/ECF
[2024-12-17 15:22] VITALS: BP 111/68; PULSE 82; RESP 18; TEMP 98.2
--- NOTE | 2024-12-17 22:07 | P.PN ---
Subjective Progress Note Date: 12/16/24 Principal diagnosis: Reason for follow-up is Proteus UTI and bacteremia Patient is a 74-year-old male with a past medical history significant for diabetes mellitus hypertension hyperlipidemia renal disease heart failure presenting to the hospital for generalized weakness abdominal pain and right lower extremity swelling, patient did have positive blood culture with the Proteus prompting this consultation. On today's evaluation that is 12/16/2024,the patient denies any fever or any chills, patient is breathing comfortably on room air, the patient denies chest pain shortness of breath and no significant cough, patient denies abdominal pain, no nausea vomiting or diarrhea. Patient white count is down to 15.94 creatinine is 1.86 Objective - Vital Signs Vital signs: Vital Signs Temp 97.6 F 12/16/24 14:13 Pulse 82 12/16/24 14:13 Resp 18 12/16/24 14:13 BP 168/91 12/16/24 14:13 Pulse Ox 100 12/16/24 14:13 FiO2 Intake & Output 12/15/24 12/16/24 12/16/24 18:59 06:59 18:59 Intake Total 20 10 Output Total 1000 1400 Balance -980 -1390 Intake: IV 20 10 Invasive Line 3 20 10 Output: Urine 1000 1400 Other: Voiding Method Indwelling Catheter Indwelling Catheter # Bowel Movements 1 1 - Exam GENERAL DESCRIPTION: An elderly male lying in bed in no distress RESPIRATORY SYSTEM: Unlabored breathing , decreased breath sounds at bases HEART: S1 S2 regular rate and rhythm , ABDOMEN: Soft , no tenderness EXTREMITIES: Right lower extremity diffuse swelling and some blisters - Labs CBC & Chem 7: 12/16/24 08:32 12/16/24 08:32 Labs: Abnormal Lab Results - Last 24 Hours (Table) 12/15/24 12/15/24 12/16/24 Range/Units 16:55 20:07 06:08 WBC (4.50-10.00) 10*3/uL RBC (4.40-5.60) 10*6/uL Hgb (13.0-17.0) g/dL Hct (39.6-50.0) % MCHC (32.0-37.0) g/dL RDW (11.5-14.5) % Immature Gran # (0.00-0.04) 10*3/uL Neutrophils # (1.80-7.70) 10*3/uL Eosinophils # (0.04-0.35) 10*3/uL Chloride (98-107) mmol/L Carbon Dioxide (22-30) mmol/L BUN (9-20) mg/dL Creatinine (0.66-1.25) mg/dL POC Glucose (mg/dL) 318 H 150 H 127 H (70-110) mg/dL 12/16/24 12/16/24 12/16/24 Range/Units 08:32 08:32 11:42 WBC 15.94 H (4.50-10.00) 10*3/uL RBC 3.45 L (4.40-5.60) 10*6/uL Hgb 9.5 L (13.0-17.0) g/dL Hct 30.4 L (39.6-50.0) % MCHC 31.3 L (32.0-37.0) g/dL RDW 17.7 H (11.5-14.5) % Immature Gran # 0.69 H (0.00-0.04) 10*3/uL Neutrophils # 13.35 H (1.80-7.70) 10*3/uL Eosinophils # 0.02 L (0.04-0.35) 10*3/uL Chloride 108 H (98-107) mmol/L Carbon Dioxide 19 L (22-30) mmol/L BUN 58 H (9-20) mg/dL Creatinine 1.86 H (0.66-1.25) mg/dL POC Glucose (mg/dL) 189 H (70-110) mg/dL Assessment and Plan (1) UTI (urinary tract infection) Status: Acute Code(s): N39.0 - URINARY TRACT INFECTION, SITE NOT SPECIFIED SNOMED Code(s): 59297025 (2) Positive blood cultures Status: Acute Code(s): R78.81 - BACTEREMIA SNOMED Code(s): 732733444 (3) Cellulitis of right leg Status: Acute Code(s): L03.115 - CELLULITIS OF RIGHT LOWER LIMB SNOMED Code(s): 36363247887432137 Plan: 1patient with gram-negative bacteremia identified as Proteus species source is likely urinary as urine is growing the same pathogen and apparently sensitive pathogen as reported by the pharmacist with the full sensitivities are currently pending patient did have mild left-sided hydronephrosis on the ultrasound did not mention any stone or renal abscess and no evidence of any colitis 2patient also have swelling and redness of right lower extremity concerning for possible component of cellulitis, 3the patient is afebrile white count is trending down more likely related to the prednisone as no evidence of any worsening condition, patient completed course of IV Rocephin 4-currently on oral Keflex to continue short course Dictation was produced using [employer] dictation software. please excuse any grammatical, word or spelling errors. Time with Patient: Less than 30
--- NOTE | 2024-12-17 22:08 | P.PN ---
Subjective Progress Note Date: 12/17/24 Principal diagnosis: Reason for follow-up is Proteus UTI and bacteremia Patient is a 74-year-old male with a past medical history significant for diabetes mellitus hypertension hyperlipidemia renal disease heart failure presenting to the hospital for generalized weakness abdominal pain and right lower extremity swelling, patient did have positive blood culture with the Proteus prompting this consultation. On today's evaluation that is 12/17/2024,the patient remains to be afebrile, patient is on room air not requiring supplemental oxygen and denies any shortness of breath no chest pain or cough.Patient denies having any nausea or vomiting, no abdominal pain and no diarrhea has been reported No new lab has been obtained today Objective - Vital Signs Vital signs: Vital Signs Temp 97.5 F L 12/17/24 07:05 Pulse 74 12/17/24 07:05 Resp 17 12/17/24 07:05 BP 132/78 12/17/24 07:05 Pulse Ox 100 12/17/24 07:05 FiO2 Intake & Output 12/16/24 12/17/24 12/17/24 18:59 06:59 18:59 Intake Total 236 Output Total 700 700 Balance -700 -700 236 Weight 92.5 kg Intake: Oral 236 Output: Urine 700 700 Uretheral ([place]) 700 Other: Voiding Method Indwelling Catheter Indwelling Catheter - Exam GENERAL DESCRIPTION: An elderly male lying in bed in no distress RESPIRATORY SYSTEM: Unlabored breathing , decreased breath sounds at bases HEART: S1 S2 regular rate and rhythm , ABDOMEN: Soft , no tenderness EXTREMITIES: Right lower extremity diffuse swelling and some blisters - Labs CBC & Chem 7: 12/16/24 08:32 12/16/24 08:32 Labs: Abnormal Lab Results - Last 24 Hours (Table) 12/16/24 12/16/24 12/16/24 Range/Units 11:42 16:50 20:54 POC Glucose (mg/dL) 189 H 230 H 214 H (70-110) mg/dL 12/17/24 Range/Units 06:10 POC Glucose (mg/dL) 116 H (70-110) mg/dL Assessment and Plan (1) UTI (urinary tract infection) Status: Acute Code(s): N39.0 - URINARY TRACT INFECTION, SITE NOT SPECIFIED SNOMED Code(s): 48833625 (2) Positive blood cultures Status: Acute Code(s): R78.81 - BACTEREMIA SNOMED Code(s): 804586448 (3) Cellulitis of right leg Status: Acute Code(s): L03.115 - CELLULITIS OF RIGHT LOWER LIMB SNOMED Code(s): 66010090237454296 Plan: 1patient with gram-negative bacteremia identified as Proteus species source is likely urinary as urine is growing the same pathogen and apparently sensitive pathogen as reported by the pharmacist with the full sensitivities are currently pending patient did have mild left-sided hydronephrosis on the ultrasound did not mention any stone or renal abscess and no evidence of any colitis 2patient also have swelling and redness of right lower extremity concerning for possible component of cellulitis, 3the patient is afebrile white count is trending down as of yesterday no CBC was done today, more likely related to the prednisone as no evidence of any worsening condition, patient completed course of IV Rocephin 4-patient to continue short course of oral Keflex on discharge to finish his course of therapy Dictation was produced using [employer] dictation software. please excuse any grammatical, word or spelling errors. Time with Patient: Less than 30
== END 2024-12-17 16:03 | DRG 871 ==
LOC: EC 00:23 → 3SCARD 05:49 → 4SSUR 12-16 00:41
PROVIDERS: ADMIT Internal Medicine; ATTEND Internal Medicine
DX: A41.59 Other Gram-negative sepsis (principal); N17.0 Acute kidney failure with tubular necrosis; E87.20 Acidosis, unspecified; I82.421 Acute embolism and thrombosis of right iliac vein; I42.9 Cardiomyopathy, unspecified; D63.1 Anemia in chronic kidney disease; I50.22 Chronic systolic (congestive) heart failure; I13.0 Hypertensive heart and chronic kidney disease with heart failure and stage 1 through stage 4 chronic kidney disease, or unspecified chronic kidney disease; E11.22 Type 2 diabetes mellitus with diabetic chronic kidney disease; N18.32 Chronic kidney disease, stage 3b; N13.6 Pyonephrosis; L03.115 Cellulitis of right lower limb; E87.1 Hypo-osmolality and hyponatremia; Z79.4 Long term (current) use of insulin; R65.20 Severe sepsis without septic shock; N05.7 Unspecified nephritic syndrome with diffuse crescentic glomerulonephritis; E86.1 Hypovolemia; E78.5 Hyperlipidemia, unspecified; D49.89 Neoplasm of unspecified behavior of other specified sites; M79.605 Pain in left leg; I25.2 Old myocardial infarction; R31.9 Hematuria, unspecified; Z79.82 Long term (current) use of aspirin; Z79.52 Long term (current) use of systemic steroids; Z79.624 Long term (current) use of inhibitors of nucleotide synthesis; Z79.899 Other long term (current) drug therapy; Z87.891 Personal history of nicotine dependence; Z86.14 Personal history of Methicillin resistant Staphylococcus aureus infection; Z87.440 Personal history of urinary (tract) infections
CPT/HCPCS: 36415; 51798; 71045; 74176; 76770; 80048; 80053; 81001; 82550; 82728; 83036; 83540; 83550; 83605; 83690; 83735; 83930; 83935; 84295; 84300; 84466; 84484; 85025; 85027; 85045; 85610; 85730; 86140; 86850; 86900; 86901; 87040; 87077; 87086; 87186; 93005; 96365; 96366; 96367; 96375; 99291

== ENCOUNTER 2025-01-18 12:27 | Inpatient (IN) | payer MEDICARE ==
[2025-01-18] MEDS ORDERED: VANCOMYCIN IV PER PHARMACY 1 EACH MISC MISCELLANE PRN (14:18)
[2025-01-18] MEDS: ONDANSETRON 4 MG/2 ML VIAL IVP STA (15:15)
[2025-01-18] MEDS: MORPHINE SULFATE 4 MG/ML SYRINGE IVP STA (15:17)
[2025-01-18] MEDS: PANTOPRAZOLE 40 MG/10 ML VIAL IVP STA (15:25)
[2025-01-18] MEDS: LACTATED RINGERS 1,000 ML IV ONE (15:26)
--- NOTE | 2025-01-18 15:49 | ED ---
General Adult HPI - General Source: patient, RN notes reviewed, old records reviewed Mode of arrival: EMS Limitations: no limitations <Davin Locke - Last Filed: 01/18/25 15:38> - General Source: patient, RN notes reviewed, old records reviewed Mode of arrival: EMS Limitations: no limitations <Kolton Guillermo - Last Filed: 01/18/25 18:51> - General Chief complaint: Abdominal Pain Stated complaint: Abd/Back Pain Time Seen by Provider: 01/18/25 14:00 - History of Present Illness Initial comments: 74-year-old male presents emergency department complaining of abdominal pain. States that the pain has been present for multiple days. Primarily in the lower left quadrant but also radiates towards the right side. Endorses some nausea, vomiting of nonbilious nonbloody emesis, as well as some nonbloody diarrhea. Denies constipation. Patient has a past medical history remarkable for diabetes, hypertension, hyperlipidemia, heart failure. Does have some chronic wounds on the right upper extremity as well as right lower extremity concerning for possible cellulitis if they do a purulent discharge. Apparently seems wound care however the packing seems old. Denies any other acute complaints. Patient did have bedbugs upon arrival and there was a delay in evaluation due to patient requiring decontamination. Presents for further evaluation at this time. (Davin Velásquez) 74 male to ER with abdominal pain. Patient is having some nausea some puking and some diarrhea (Kolton Guillermo) - Related Data Home Medications Medication Instructions Recorded Confirmed Acetaminophen Tab [Tylenol] 650 mg PO Q8H PRN 11/17/23 01/18/25 Magnesium Oxide [Mag-Ox] 400 mg PO DAILY 11/17/23 01/18/25 Metoprolol Tartrate [Lopressor] 50 mg PO BID-W/MEALS 11/17/23 01/18/25 Insulin NPH Hum/Reg Insulin Hm 10 unit SQ BID 12/17/23 01/18/25 [humuLIN 70/30 Kwikpen] mycophenolate mofetiL [Cellcept] 250 mg PO BID 04/01/24 01/18/25 Aspirin EC [Ecotrin Low Dose] 81 mg PO DAILY 09/24/24 01/18/25 Atorvastatin [Lipitor] 40 mg PO DAILY 09/24/24 01/18/25 SILVER sulfADIAZINE Cream 1 applic TOPICAL BID 12/07/24 01/18/25 [Silvadene 1% Cream] Apixaban [Eliquis] 5 mg PO BID 01/18/25 01/18/25 Previous Rx's Medication Instructions Recorded predniSONE [Deltasone] 20 mg PO DAILY #30 tab 12/20/23 Famotidine [Pepcid] 20 mg PO DAILY tab 12/17/24 Sodium Bicarbonate Tab 650 mg PO BID tab 12/17/24 Vits A & D-White Pet-Lanolin 1 applic TOPICAL BID each 12/17/24 [Vitamin A & D Ointment] Allergies Allergy/AdvReac Type Severity Reaction Status Date / Time No Known Allergies Allergy Verified 01/18/25 12:40 Review of Systems ROS Other: All systems not noted in ROS Statement are negative. <Davin Locke - Last Filed: 01/18/25 15:38> ROS Other: All systems not noted in ROS Statement are negative. <Kolton Guillermo - Last Filed: 01/18/25 18:51> ROS Statement: Those systems with pertinent positive or pertinent negative responses have been documented in the HPI. Review of Systems: CONST: Denies fever EYES: Denies blurry vision ENT: Denies nasal congestion C/V: Denies Chest pain RESP: Denies shortness of breath GI: Endorses abdominal pain : Denies dysuria SKIN: Endorses chronic extremity wounds MSK: Denies joint pain. NEURO: Denies headache (Davin Locke) Past Medical History Past Medical History: Heart Failure, Diabetes Mellitus, Hyperlipidemia, Hypertension, Renal Disease Additional Past Medical History / Comment(s): Cardiomyopathy, tumor in front of heart being monitored Last Myocardial Infarction Date:: 2022 History of Any Multi-Drug Resistant Organisms: MRSA Date of last positivie culture/infection: 04/01/24 MDRO Source:: GROIN Past Surgical History: No Surgical Hx Reported Past Anesthesia/Blood Transfusion Reactions: No Reported Reaction Additional Past Anesthesia/Blood Transfusion Reaction / Comment(s): . Past Psychological History: No Psychological Hx Reported Smoking Status: Former smoker Past Alcohol Use History: Rare Past Drug Use History: Marijuana - Past Family History Father Family Medical History: Diabetes Mellitus, Myocardial Infarction ([place]) Additional Family Medical History / Comment(s): Had leg amputation Mother History Unknown: Yes Family Medical History: No Reported History Sister(s) Family Medical History: Diabetes Mellitus Additional Family Medical History / Comment(s): 1 sister had arm amputated due to diabetes <Davin Locke - Last Filed: 01/18/25 15:38> General Exam Limitations: no limitations <Davin Locke - Last Filed: 01/18/25 15:38> General appearance: alert, in no apparent distress Head exam: Present: atraumatic, normocephalic, normal inspection Eye exam: Present: normal appearance, PERRL, EOMI. Absent: scleral icterus, conjunctival injection, periorbital swelling ENT exam: Present: normal exam, mucous membranes moist Neck exam: Present: normal inspection. Absent: tenderness, meningismus, lymphadenopathy Respiratory exam: Present: normal lung sounds bilaterally. Absent: respiratory distress, wheezes, rales, rhonchi, stridor Cardiovascular Exam: Present: regular rate, normal rhythm, normal heart sounds. Absent: systolic murmur, diastolic murmur, rubs, gallop, clicks GI/Abdominal exam: Present: soft, normal bowel sounds. Absent: distended, ten derness, guarding, rebound, rigid Extremities exam: Present: normal inspection, full ROM, normal capillary refill. Absent: tenderness, pedal edema, joint swelling, calf tenderness Back exam: Present: normal inspection Neurological exam: Present: alert, oriented X3, CN II-XII intact Psychiatric exam: Present: normal affect, normal mood Skin exam: Present: warm, dry, intact, normal color. Absent: rash <Kolton Guillermo - Last Filed: 01/18/25 18:51> - General Exam Comments Initial Comments: General: Appears in no acute distress. HEAD: Normal with no signs of head trauma. EYES: EOMI ENT: Hearing grossly intact, normal oropharynx. RESPIRATORY: Clear breath sounds bilaterally. No wheezes, rales, or rhonchi. C/V: Regular rate and rhythm. S1 and S2 auscultated, no edema, peripheral pulses 2+ and intact throughout ABD: Abdomen is soft, nondistended. Tender palpation in the left lower quadrant and suprapubic region. No guarding or rebound tenderness. No peritoneal signs. Some left-sided flank pain as well. EXT: Normal range of motion, no obvious deformity SKIN: Patient has purulent discharge from wounds located on the right anterior maldonado as well as the right upper extremity. NEURO: Alert and oriented x 4. No focal deficits. (Davin Locke) Course <Kolton Guillermo - Last Filed: 01/18/25 18:51> Vital Signs 01/18/25 01/18/25 01/18/25 12:33 14:15 18:41 Temperature 98.6 F Pulse Rate 101 H 59 L 94 Respiratory 18 16 18 Rate Blood Pressure 142/101 140/117 153/89 O2 Sat by Pulse 99 98 97 Oximetry - Reevaluation(s) Reevaluation #1: 01/18/25 18:50 Medical records reviewed (Kolton Guillermo) Reevaluation #2: 01/18/25 18:50 Symptoms unchanged (Kolton Guillermo) Reevaluation #3: 01/18/25 18:50 Patient informed of results questions answered (Kolton Guillermo) - Consultations Consultation #1: Spoke with admitting who agrees to admit this patient, sound (Kolton Guillermo) Medical Decision Making - EKG Data -: EKG Interpreted by Me <Davin Locke - Last Filed: 01/18/25 15:38> - Lab Data Result diagrams: 01/18/25 16:01 01/18/25 16:01 - Radiology Data Radiology results: report reviewed (CT abdomen pelvis positive cystitis), image reviewed <Kolton Guillermo - Last Filed: 01/18/25 18:51> - Medical Decision Making Was pt. sent in by a medical professional or institution (, PA, TEXTILE WORKER, urgent care, hospital, or alf...) When possible be specific @ -No Did you speak to anyone other than the patient for history (EMS, parent, family, police, friend...)? What history was obtained from this source @ -No Did you review nursing and triage notes (agree or disagree)? Why? @ -I reviewed and agree with nursing and triage notes Were old charts reviewed (outside hosp., previous admission, EMS record, old EKG, old radiological studies, urgent care reports/EKG's, alf records)? Report findings @ -No old charts were reviewed Differential Diagnosis (chest pain, altered mental status, abdominal pain women, abdominal pain men, vaginal bleeding, weakness, fever, dyspnea, syncope, headache, dizziness, GI bleed, back pain, seizure, CVA, palpatations, mental health, musculoskeletal)? @ -Differential Abdominal Pain Men: Appendicitis, cholecystitis, diverticulosis, ischemic bowel, pancreatitis, hepatitis, UTI, gastroenteritis, AAA, incarcerated hernia, bowel obstruction, constipation, inflammatory bowel, hepatitis, peptic ulcer disease, splenic infarction, perforated viscus, testicular torsion, this is not meant to be an all-inclusive list EKG interpreted by me (3pts min.). @ -As above X-rays interpreted by me (1pt min.). @ -Pending CT interpreted by me (1pt min.). @ -Pending U/S interpreted by me (1pt. min.). @ -None done What testing was considered but not performed or refused? (CT, X-rays, U/S, labs)? Why? @ -None What meds were considered but not given or refused? Why? @ -None Did you discuss the management of the patient with other professionals (professionals i.e. , PA, TEXTILE WORKER, lab, RT, psych nurse, social media marketing manager, lead pourer, teacher, special officer, case packer)? Give summary @ -No Was smoking cessation discussed for >3mins.? @ -No Was critical care preformed (if so, how long)? @ -No Were there social determinants of health that impacted care today? How? (Homelessness, low income, unemployed, alcoholism, drug addiction, transpo rtation, low edu. Level, literacy, decrease access to med. care, [facility], rehab)? @ -No Was there de-escalation of care discussed even if they declined (Discuss DNR or withdrawal of care, Hospice)? DNR status @ -No What co-morbidities impacted this encounter? (DM, HTN, Smoking, COPD, CAD, Cancer, CVA, ARF, Chemo, Hep., AIDS, mental health diagnosis, sleep apnea, morbid obesity)? @ -Diabetes, bedbugs Was patient admitted / discharged? Hospital course, mention meds given and route, prescriptions, significant lab abnormalities, going to OR and other pertinent info. @ -Patient presents complaining of abdominal pain. Patient also has bedbugs for which she was decontaminated for as well as what appears to be purulent discharge from wounds on his right lower extremity and right upper extremity with concern for cellulitic changes. Vitals are within acceptable limits. Patient will be symptomatically treated with IV fluids, morphine, Zofran, Protonix. Patient will be empirically started on vancomycin. Wound cultures and blood cultures obtained and sent. There was a long delay in obtaining laboratory studies due to patient requiring decontamination as well as delay from nursing staff. At this time, labs, and imaging are still pending. EKG showed no signs of acute ischemia. Patient will be signed out to Dr. Guillermo Pending results of workup. He will likely be admitted for the cellulitis but we need to rule out any intra-abdominal pathology. Undiagnosed new problem with uncertain prognosis? @ -No Drug Therapy requiring intensive monitoring for toxicity (Heparin, Nitro, Insul in, Cardizem)? @ -No Were any procedures done? @ -No Diagnosis/symptom? @ -Bedbugs, cellulitis, abdominal pain (Davin Locke) 74 male will be admitted for IV antibiotics secondary to cellulitis also with urinary tract infection and acute renal failure (Kolton Guillermo) - Lab Data Lab Results 01/18/25 01/18/25 01/18/25 Range/Units 16:01 16:01 16:01 WBC 18.15 H (4.50-10.00) 10*3/uL RBC 2.86 L (4.40-5.60) 10*6/uL Hgb 7.7 L D (13.0-17.0) g/dL Hct 23.4 L (39.6-50.0) % MCV 81.8 D (80.0-97.0) fL MCH 26.9 L (27.0-32.0) pg MCHC 32.9 (32.0-37.0) g/dL Plt Count 352 (140-440) 10*3/uL MPV 10.0 (9.5-12.2) fL Immature Gran % (Auto) 1.2 % Neutrophils % 88.6 % Lymphocytes % 3.6 % Monocytes % 6.3 % Eosinophils % 0.1 % Basophils % 0.2 % Immature Gran # 0.22 H (0.00-0.04) 10*3/uL Neutrophils # 16.09 H (1.80-7.70) 10*3/uL Lymphocytes # 0.65 L (0.90-5.00) 10*3/uL Monocytes # 1.15 H (0.20-1.00) 10*3/uL Eosinophils # 0.01 L (0.04-0.35) 10*3/uL Basophils # 0.03 (0.00-0.10) 10*3/uL Sodium 133 L (137-145) mmol/L Potassium 4.0 (3.5-5.1) mmol/L Chloride 100 (98-107) mmol/L Carbon Dioxide 20 L (22-30) mmol/L Anion Gap 13 mmol/L BUN 102 H* (9-20) mg/dL Creatinine 3.28 H (0.66-1.25) mg/dL Est GFR (CKD-EPI)AfAm 20 (>60 ml/min/1.73 sqM) Est GFR (CKD-EPI)NonAf 17 (>60 ml/min/1.73 sqM) Glucose 89 (74-99) mg/dL Plasma Lactic Acid Andrea 1.7 (0.7-2.0) mmol/L Calcium 8.9 (8.4-10.2) mg/dL Total Bilirubin 0.6 (0.2-1.3) mg/dL AST 17 (17-59) U/L ALT 18 (4-49) U/L Alkaline Phosphatase 126 (38-126) U/L Total Protein 5.8 L (6.3-8.2) g/dL Albumin 2.9 L (3.5-5.0) g/dL Amylase 56 (30-110) U/L Lipase 27 (23-300) U/L - EKG Data EKG Comments: 12-lead Electrocardiogram Interpretation Note EKG was reviewed and interpreted by myself. 12-lead ECG performed at 1440 is interpreted by me as revealing sinus tachycardia with frequent PACs at a rate of 106 beats per minute. [place] is normal. MA interval is 181 ms, QRS duration is 85 ms, QTc is 390 ms.. There were no ST or T wave abnormalities to suggest myocardial ischemia or injury. R wave progression across the precordium was satisfactory. By my interpretation this EKG is non-diagnostic for acute ischemia. (Davin Locke) Disposition <Davin Locke - Last Filed: 01/18/25 15:38> Is patient prescribed a controlled substance at d/c from ED?: No Time of Disposition: 18:30 <Kolton Guillermo - Last Filed: 01/18/25 18:51> Clinical Impression: Infestation by bed bug, Cellulitis, Abdominal pain, UTI (urinary tract infection), Generalized weakness, Acute kidney injury, CKD (chronic kidney disease), Cellulitis, leg Disposition: ADMITTED IP TO THIS HOSP Condition: Fair Referrals: Rudolph Petesron MD [Primary Care Provider] - 1-2 days
[2025-01-18 16:10] LABS: Basophils # (A) 0.03 10*3/uL (0.00-0.10); Basophils % (A) 0.2 %; Eosinophils # (A) 0.01 10*3/uL (0.04-0.35); Eosinophils % (A) 0.1 %; HCT 23.4 % (39.6-50.0); Lymphocytes # (A) 0.65 10*3/uL (0.90-5.00); Lymphocytes % (A) 3.6 %; MCH 26.9 pg (27.0-32.0); MCHC 32.9 g/dL (32.0-37.0); Monocytes # (A) 1.15 10*3/uL (0.20-1.00); Monocytes % (A) 6.3 %; Neutrophils # (A) 16.09 10*3/uL (1.80-7.70); Neutrophils % (A) 88.6 %; Platelet Count 352 10*3/uL (140-440); RBC 2.86 10*6/uL (4.40-5.60); RDW 16.2 % (11.5-14.5); WBC 18.15 10*3/uL (4.50-10.00)
[2025-01-18 16:15] LABS: HGB 7.7 g/dL (13.0-17.0); MCV 81.8 fL (80.0-97.0)
[2025-01-18 16:25] LABS: ALT 18 U/L (4-49); AST 17 U/L (17-59); African American GFR (CKD) 20 (>60 ml/min/1.73 sqM); Albumin 2.9 g/dL (3.5-5.0); Alkaline Phosphatase 126 U/L (38-126); Amylase 56 U/L (30-110); Anion Gap 13 mmol/L; Calcium 8.9 mg/dL (8.4-10.2); Carbon Dioxide 20 mmol/L (22-30); Chloride 100 mmol/L (98-107); Glucose 89 mg/dL (74-99); Lipase 27 U/L (23-300); Non-African American GFR(CKD) 17 (>60 ml/min/1.73 sqM); Potassium 4.0 mmol/L (3.5-5.1); Sodium 133 mmol/L (137-145); Total Protein 5.8 g/dL (6.3-8.2)
--- NOTE | 2025-01-18 16:38 | XR ---
EXAMINATION TYPE: XR chest 2V DATE OF EXAM: 01/18/2025 4:33 PM COMPARISON: Chest radiographs from 12/07/2024 TECHNIQUE: XR chest 2V Frontal and lateral views of the chest. CLINICAL INDICATION:Male, 74 years old with history of abdominal pain; FINDINGS: Lungs/Pleura: There is no evidence of pleural effusion, focal consolidation, or pneumothorax. Chroni c senescent parenchymal change. Pulmonary vascularity: Unremarkable. Heart/mediastinum: Cardiomediastinal silhouette is unremarkable. Musculoskeletal: Multiple level degenerative disc disease changes seen throughout the spine. IMPRESSION: No acute cardiopulmonary disease/process. [facility], , 01/18/2025 4:36 PM
[2025-01-18] MEDS: VANCOMYCIN 1,500 MG in SODIUM CHLORIDE 0.9% 500 ML 500 ML IVPB ONE (16:43)
[2025-01-18 16:44] LABS: Blood Urea Nitrogen 102 mg/dL (9-20)
--- NOTE | 2025-01-18 17:31 | CT ---
EXAMINATION TYPE: CT abdomen pelvis wo con CT DLP: 945.8 mGycm, Automated exposure control for dose reduction was used. DATE OF EXAM: 01/18/2025 5:18 PM COMPARISON: Renal ultrasound 12/15/2024, CT abdomen and pelvis 925 CLINICAL INDICATION:Male, 74 years old with history of abdominal pain, llq; pt. comes from home for l ower abdominal pain and lower back pain x 3 days. TECHNIQUE: Standard CT of the abdomen and pelvis without IV or oral contrast. Lack of IV or oral co ntrast limits evaluation of solid and hollow organ viscera. Coronal and sagittal reformats were perfo rmed. FINDINGS: LOWER CHEST: Mildly prominent heart. Small mitral annulus calcifications. The visualized lung bases a re clear. ABDOMEN LIVER: Unremarkable noncontrast appearance GALLBLADDER AND BILE DUCTS: Unremarkable noncontrast appearance PANCREAS: Unremarkable noncontrast appearance SPLEEN: Unremarkable noncontrast appearance ADRENAL GLANDS: Unremarkable noncontrast appearance. KIDNEYS AND URETERS: Redemonstration of moderate bilateral hydroureteronephrosis extending down to th e urinary bladder. No obstructing calculus identified. Cortical atrophy of the left kidney. PELVIS BLADDER: Mild circumferential wall thickening of the urinary bladder with some trace perivesicular fa t stranding. Mildly distended. REPRODUCTIVE: Coarse calcifications of the prostate gland are identified. ABDOMEN & PELVIS STOMACH AND BOWEL: Stomach and duodenum are unremarkable. Distal colonic diverticulosis without evide nce for acute diverticulitis. Redundant sigmoid colon. No focal wall thickening or surrounding inflam matory changes identified. The appendix is within normal limits. No evidence of bowel obstruction. PERITONEUM: No evidence of pneumoperitoneum or free fluid. VASCULATURE: Mild to moderate atherosclerotic calcifications are present throughout the abdominal aor ta and its branches. No evidence of aortic aneurysm. Stable midabdominal fusiform aortic aneurysm jacqueline suring 3.3 cm. MUSCULOSKELETAL: Multilevel superior endplate compression deformity is redemonstrated involving the L 2 and L3 vertebral bodies. New central compression deformity involving the superior endplate of the L 1 vertebral body with approximately 10% height loss. New superior endplate compression deformity invo lving the superior endplate of the T12 vertebral body with approximately 10% height loss. No retropul suly. Prominent Schmorl's node involving the inferior endplate of the T11 vertebral body. Diffuse bon e demineralization. LYMPH NODES: No gross evidence for lymphadenopathy. SOFT TISSUE/ABDOMINAL WALL: Unremarkable IMPRESSION: 1. Similar moderate bilateral hydroureteronephrosis extending to the ureteral vesicle junctions. No obstructing calculus. 2. Circumferential wall thickening of the urinary bladder with some surrounding fat stranding. Correl ate for cystitis with urinalysis. 3. Redemonstration of multilevel superior endplate compression deformities of the thoracolumbar spine . There are new mild superior endplate compression deformities of the T12 and L1 vertebral bodies fro m prior exam. Approximately 10% height loss and no retropulsion. 4. Colonic diverticulosis without evidence for acute diverticulitis. [facility], , 01/18/2025 5:29 PM
[2025-01-18] MEDS ORDERED: ONDANSETRON 4 MG/2 ML VIAL IVP PRN (18:48)
[2025-01-18] MEDS ORDERED: NALOXONE 0.4 MG/ML 1 ML VIAL IV PRN (18:48)
[2025-01-18 19:19] LABS: INR 1.0 (<1.2); Partial Thromboplastin Time 24.4 sec (22.0-30.0); Prothrombin Time 11.5 sec (10.0-12.5)
[2025-01-18] MEDS: SODIUM CHLORIDE 0.9% 1,000 ML IV SCH (20:05)
--- NOTE | 2025-01-18 20:55 | P.HPIM ---
History of Present Illness H&P Date: 01/18/25 Chief Complaint: abdominal pain Patient is a 74-year-old male with a PMH of -Heart failure -Stage IV CKD - Primary hypertension - Hyperlipidemia - Insulin-dependent diabetes Is brought to the emergency by EMS for acute abdominal pain for the past few days. Patient is a poor historian. He stated that he came to the ED today because of kidney flareup. He did not have similar symptoms before. 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 He denied any abdominal pain. He stated that he had watery nonbloody diarrhea yesterday, and he vomited once but denied bloody emesis. Patient has multiple bruises on his lower and upper extremities. Patient stated that he had a fall last month, and that is when he noticed all these bruises. Also patient stated that he is taking aspirin but denied being on Eliquis. Patient denied having dysuria, or blood in urine. However, patient was started on antibiotics for concern of cellulitis on his last hospitalization in 11/2024. Patient denied having antibiotics. However, in the ED he was started on ceftriaxone IV and vancomycin. Patient denied having chest pain, shortness of breath, weakness, fever or chills, numbness or tingling, abdominal pain, back pain, headaches. Imaging: Chest x-ray 01/18 No acute cardiopulmonary disease/process Abdominal /pelvis CT 01/18 1. Similar moderate bilateral hydroureteronephrosis extending to the ureteral vesicle junction no obstructing calculus. 2. Circumferential wall thickening of the urinary bladder with some surrounding fat stranding. Correlate for cystitis with urinalysis 3. Redemonstration of multiple 3 level superior endplate compression deformities of the thoracolumbar spine there are new mild superior endplate compression deformities of the T12 and L1 vertebral bodies from prior exam. Approximately 10% height loss and no retropulsion 4. Colonic diverticulosis without evidence for acute diverticulitis. Labs WBC 18.15, Hgb 7.7, Hct 23.4, PLT count 352 Na 133, K4, Cl 100, CO2 28, BUN 102, CR 3.28, GFR 17 Vitals T98.6F, HR 101, RR 18, BP 122/101, O2 sat 99% on RA ED documentation reviewed and case discussed with ED provider. [] Review of systems: Pertinent positives and negatives as discussed in HPI, a complete review of systems was performed and all other systems are negative. Physical examination: Vital signs reviewed General: non toxic, no distress, appears at stated age Derm: lesions and ulcers on right upper extremity , and both lower extremities Eyes: EOMI, anicteric sclera, pupils equal round reactive to light ENT: Nose and ears atraumatic Neck: supple Mouth: no lip lesion Cardiovascular: S1S2 reg, no murmur, positive dorsalis pedis pulse bilateral, trace edema on both lower extremities at the ankles Lungs: normal breathing effort, no rhonchi, no rales, no accessory muscle use Abdominal: soft, nontender to palpation, no guarding Ext: muscle strength 5 out of 5 in all 4 extremities grossly, no gross muscle atrophy Neuro: no sensory deficits in all extremities Psych: Alert, oriented to person, place, and time Assessment/Plan: #. Acute abdominal pain - concern for UTI - urinalysis positive for nitrite and leukocyte esterase - Keep on IV ceftriaxone and stop vancomycin #. Acute on chronic VANIA in stage IV CKD #. Uremia - Baseline creatinine 1.8, but Cr is up to 3.28 - Moderate bilateral hydroureteronephrosis on CT abdomen and pelvis - denied dysuria, initiating urine stream, hematouria - BUN 102 - Bladder scan and post-void residual - consult nephrology for further evaluation - consult urology for bilateral hydronephrosis #. Lacerations on extremities s/p mechanical fall - apply silver sulfadiazine cream on lacerations #. History of RIGHT leg cellulites in 11/2024 #. History of Proteus bacteremia in 11/2024 #. History of DVT in 11/2024 - resume Eliquis 5 mg BID #. Primary hypertension - resume Lopressor 50mg BID #. DM insulin-dependent - at home on Humilin 70/30 10 U BID - hold - monitor Glucose blood levels - start insulin sliding scale #. Hyperlipidemia - resume atorvastatin #. HFrEF 30 to 35% #. Normocytic anemia secondary to chronic kidney disease - Hgb 7.7 - monitor hemoglobin closely - order FOBT #. Leukocytosis - WBC 18.15 - order CRP and ESR - trend #. Colonic diverticulosis on CT scan DVT prophylaxis: Eliquis 5mg BID PPI prophylaxis: Pantoprazole 40mg BID The patient is admitted with an anticipated less than 2 midnight stay for evaluation of abdominal pain CODE STATUS: Full code Discussed with: Dr. Ragland Anticipated discharge place: Home Shaneka Carbajal MD PGY-1 IM Dictation was produced using [employer] dictation software. please excuse any grammatical, word or spelling errors. I have seen and evaluated the patient today. I Discussed the case with the resident and agree with the resident's H&P and exam A/P 74 year old male presented with abd pain and weakness # Sepsis 2/2 complicated UTI # VANIA on CKD # Obstructive uropathy #acute on chronic anemia # subacute right LE DVT # fracture right Tibia , on a brace , non weight bearing # HFrEF 30%, continue with GDMT as tolerated # DM , insulin sliding scale and long acting insulin continue NS at 75 cc per hour, patient did not receive IVF boluses in the ED due to HFrEF with LVEF 30% check blood culture and urine culture empiric antibiotics with Rocephine 2 gm IVPB daily , DC vanco check bladder scan and PVR , monitor urine output urology consult nephrology consult resume Na Bicarb oral tabs ? cellcept , need records ? transplant acute anemia , rule out GI bleeding , check fobt resume eliquis for now for subacute RLE DVT consider ortho re evaluation if needed, continue with RLE brace and non weight bearing , repeat RLE xray to confirm non displaced tibia fracture , if displaced consider ortho consult Protonix 40 mg po BID DVT PPX on eliquis for subacute DVT Past Medical History Past Medical History: Heart Failure, Diabetes Mellitus, Hyperlipidemia, Hypertension, Renal Disease Additional Past Medical History / Comment(s): Cardiomyopathy, tumor in front of heart being monitored Last Myocardial Infarction Date:: 2022 History of Any Multi-Drug Resistant Organisms: MRSA Date of last positivie culture/infection: 04/01/24 MDRO Source:: GROIN Past Surgical History: No Surgical Hx Reported Past Anesthesia/Blood Transfusion Reactions: No Reported Reaction Additional Past Anesthesia/Blood Transfusion Reaction / Comment(s): . Past Psychological History: No Psychological Hx Reported Smoking Status: Former smoker Past Alcohol Use History: Rare Past Drug Use History: Marijuana - Past Family History Father Family Medical History: Diabetes Mellitus, Myocardial Infarction ([place]) Additional Family Medical History / Comment(s): Had leg amputation Mother History Unknown: Yes Family Medical History: No Reported History Sister(s) Family Medical History: Diabetes Mellitus Additional Family Medical History / Comment(s): 1 sister had arm amputated due to diabetes Medications and Allergies Home Medications Medication Instructions Recorded Confirmed Type Acetaminophen Tab [Tylenol] 650 mg PO Q8H PRN 11/17/23 01/18/25 History Magnesium Oxide [Mag-Ox] 400 mg PO DAILY 11/17/23 01/18/25 History Metoprolol Tartrate [Lopressor] 50 mg PO BID-W/MEALS 11/17/23 01/18/25 History Insulin NPH Hum/Reg Insulin Hm 10 unit SQ BID 12/17/23 01/18/25 History [humuLIN 70/30 Kwikpen] predniSONE [Deltasone] 20 mg PO DAILY #30 tab 12/20/23 01/18/25 Rx mycophenolate mofetiL [Cellcept] 250 mg PO BID 04/01/24 01/18/25 History Aspirin EC [Ecotrin Low Dose] 81 mg PO DAILY 09/24/24 01/18/25 History Atorvastatin [Lipitor] 40 mg PO DAILY 09/24/24 01/18/25 History SILVER sulfADIAZINE Cream 1 applic TOPICAL BID 12/07/24 01/18/25 History [Silvadene 1% Cream] Famotidine [Pepcid] 20 mg PO DAILY tab 12/17/24 01/18/25 Rx Sodium Bicarbonate Tab 650 mg PO BID tab 12/17/24 01/18/25 Rx Vits A & D-White Pet-Lanolin 1 applic TOPICAL BID each 12/17/24 01/18/25 Rx [Vitamin A & D Ointment] Apixaban [Eliquis] 5 mg PO BID 01/18/25 01/18/25 History Allergies Allergy/AdvReac Type Severity Reaction Status Date / Time No Known Allergies Allergy Verified 01/18/25 12:40 Physical Exam Vitals: Vital Signs Temp Pulse Resp BP Pulse Ox 01/18/25 20:29 98 17 97 01/18/25 18:41 94 18 153/89 97 01/18/25 14:15 59 L 16 140/117 98 01/18/25 12:33 98.6 F 101 H 18 142/101 99 Intake and Output 01/18/25 01/18/25 01/18/25 06:59 14:59 22:59 Other: Weight 87.09 kg Results CBC & Chem 7: 01/18/25 16:01 01/18/25 16:01 Labs: Abnormal Lab Results - Last 24 Hours (Table) 01/18/25 01/18/25 Range/Units 16:01 16:01 WBC 18.15 H (4.50-10.00) 10*3/uL RBC 2.86 L (4.40-5.60) 10*6/uL Hgb 7.7 L D (13.0-17.0) g/dL Hct 23.4 L (39.6-50.0) % MCH 26.9 L (27.0-32.0) pg Immature Gran # 0.22 H (0.00-0.04) 10*3/uL Neutrophils # 16.09 H (1.80-7.70) 10*3/uL Lymphocytes # 0.65 L (0.90-5.00) 10*3/uL Monocytes # 1.15 H (0.20-1.00) 10*3/uL Eosinophils # 0.01 L (0.04-0.35) 10*3/uL Sodium 133 L (137-145) mmol/L Carbon Dioxide 20 L (22-30) mmol/L BUN 102 H* (9-20) mg/dL Creatinine 3.28 H (0.66-1.25) mg/dL Total Protein 5.8 L (6.3-8.2) g/dL Albumin 2.9 L (3.5-5.0) g/dL
[2025-01-18 21:05] LABS: Glucose,Whole Blood 98 mg/dL (70-110)
[2025-01-18 23:01] LABS: Bacteria,Urine Occasional /hpf; Bilirubin,Urine Negative (Negative); Blood,Urine Small (Negative); Color,Urine Colorless; Glucose,Urine (UA) Negative (Negative); Ketones,Urine Negative (Negative); Leukocyte Esterase,Urine Large (Negative); Mucus,Urine Rare /hpf; Nitrite,Urine Positive (Negative); PH, Urine 7.5 (5.0-8.0); Protein,Urine 1+ (Negative); RBC,Urine 3 /hpf (0-5); Specific Gravity,Urine 1.008 (1.001-1.035); Squamous Epithelial Cell,Urine <1 /hpf (0-4); Urobilinogen,Urine <2.0 mg/dL (<2.0); WBC,Urine 102 /hpf (0-5)
[2025-01-19] MEDS ORDERED: DEXTROSE 50% SYRINGE 50 ML IVP PRN ×2 (00:17)
[2025-01-19 07:17] LABS: Glucose,Whole Blood 124 mg/dL (70-110)
[2025-01-19] MEDS: INSULIN LISPRO (HumaLOG) 100 UNIT/ML 10 mL VL SQ SCH (07:31)
[2025-01-19] MEDS: METOPROLOL TARTRATE 50 MG TAB PO SCH (08:12)
[2025-01-19] MEDS: ASPIRIN 81 MG PO SCH (08:12)
[2025-01-19] MEDS: PANTOPRAZOLE 40 MG TABLET PO SCH (08:12)
[2025-01-19] MEDS: SODIUM BICARBONATE TAB 650 MG TAB PO SCH (08:12)
[2025-01-19] MEDS: APIXABAN 5 MG TAB PO SCH (08:13)
[2025-01-19] MEDS: ATORVASTATIN 40 MG TAB PO SCH (08:13)
[2025-01-19 08:43] LABS: Magnesium 1.6 mg/dL (1.5-2.4)
[2025-01-19 08:44] LABS: ALT 17 U/L (10-49); AST 15 U/L (14-35); Albumin 2.5 g/dL (3.8-4.9); Albumin/Globulin Ratio 0.93 Ratio (1.60-3.17); Alkaline Phosphatase 115 U/L (41-126); Anion Gap 15.90 mmol/L (4.00-12.00); BUN/Creat Ratio 25.50 Ratio (12.00-20.00); Blood Urea Nitrogen 86.7 mg/dL (9.0-27.0); Calcium 8.1 mg/dL (8.7-10.3); Carbon Dioxide 19.1 mmol/L (21.6-31.8); Chloride 101 mmol/L (96-109); Globulin 2.7 g/dL (1.6-3.3); Glucose 118 mg/dL (70-110); Potassium 3.8 mmol/L (3.5-5.5); Sodium 136 mmol/L (135-145); Total Protein 5.2 g/dL (6.2-8.2)
[2025-01-19 09:17] LABS: Basophils # (A) 0.02 X 10*3/uL (0.00-0.10); Basophils % (A) 0.1 %; Crenated RBC 2+ (None Seen); Eosinophils # (A) 0.03 X 10*3/uL (0.04-0.35); Eosinophils % (A) 0.2 %; HCT 20.8 % (39.6-50.0); HGB 6.3 g/dL (13.0-17.0); Immature Grans, Automated 1.00 %; Lymphocytes # (A) 0.63 X 10*3/uL (0.90-5.00); Lymphocytes % (A) 3.9 %; MCH 25.8 pg (27.0-32.0); MCHC 30.3 g/dL (32.0-37.0); MCV 85.2 FL (80.0-97.0); Monocytes # (A) 0.96 X 10*3/uL (0.20-1.00); Monocytes % (A) 5.9 %; NRBC Per 100 WBC 0 X 10*3/uL (0.00-0.01); Neutrophils # (A) 14.37 X 10*3/uL (1.80-7.70); Neutrophils % (A) 88.9 %; Platelet Count 358 X 10*3/uL (140-440); RBC 2.44 X 10*6/uL (4.40-5.60); RDW 16.4 % (11.5-14.5); WBC 16.17 X 10*3/uL (4.50-10.00)
--- NOTE | 2025-01-19 09:20 | P.GSCN ---
History of Present Illness Consult date: 01/19/25 History of present illness: 74-year-old gentleman in the hospital with abdominal pain. He had an abdominal CT scan that showed bilateral hydronephrosis. We are asked see the patient. Was in the hospital last month and was seen by for the same problem. It was found that he was struggling to empty his bladder. CT scan shows a thickened bladder that is not completely emptied. He was not on any alpha blockers. He does not see his doctor regularly. He states for the last several days he has had problems urinating but has been incontinent for much longer than that. The patient is a poor historian. From the emergency room notes there is no evidence of tamsulosin being used. He denies infection blood in the urine. He states he urinates once a day and sleeps through the night. Review of Systems All systems: negative - Constitutional Denies fever, Denies weight loss - EENT Eyes: denies blurred vision Ears, nose, mouth and throat: Denies dysphagia - Cardiovascular Denies chest pain, Denies shortness of breath - Respiratory Denies cough, Denies 7 - Gastrointestinal Reports as per HPI - Genitourinary Denies dysuria, Denies hematuria - Integumentary Denies rash, Denies unusual bruising - Neurological Denies headaches, Denies syncope - Hematologic/Lymphatic Denies easy bleeding, Denies easy bruising Past Medical History Past Medical History: Heart Failure, Diabetes Mellitus, Hyperlipidemia, Hypertension, Renal Disease Additional Past Medical History / Comment(s): Cardiomyopathy, 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 Past Psychological History: No Psychological Hx Reported Smoking Status: Former smoker Past Alcohol Use History: Rare Past Drug Use History: Marijuana - Past Family History Father Family Medical History: Diabetes Mellitus, Myocardial Infarction ([place]) Additional Family Medical History / Comment(s): Had leg amputation Mother History Unknown: Yes Family Medical History: No Reported History Sister(s) Family Medical History: Diabetes Mellitus Additional Family Medical History / Comment(s): 1 sister had arm amputated due to diabetes Medications and Allergies Home Medications Medication Instructions Recorded Confirmed Type Acetaminophen Tab [Tylenol] 650 mg PO Q8H PRN 11/17/23 01/18/25 History Magnesium Oxide [Mag-Ox] 400 mg PO DAILY 11/17/23 01/18/25 History Metoprolol Tartrate [Lopressor] 50 mg PO BID-W/MEALS 11/17/23 01/18/25 History Insulin NPH Hum/Reg Insulin Hm 10 unit SQ BID 12/17/23 01/18/25 History [humuLIN 70/30 Kwikpen] predniSONE [Deltasone] 20 mg PO DAILY #30 tab 12/20/23 01/18/25 Rx mycophenolate mofetiL [Cellcept] 250 mg PO BID 04/01/24 01/18/25 History Aspirin EC [Ecotrin Low Dose] 81 mg PO DAILY 09/24/24 01/18/25 History Atorvastatin [Lipitor] 40 mg PO DAILY 09/24/24 01/18/25 History SILVER sulfADIAZINE Cream 1 applic TOPICAL BID 12/07/24 01/18/25 History [Silvadene 1% Cream] Famotidine [Pepcid] 20 mg PO DAILY tab 12/17/24 01/18/25 Rx Sodium Bicarbonate Tab 650 mg PO BID tab 12/17/24 01/18/25 Rx Vits A & D-White Pet-Lanolin 1 applic TOPICAL BID each 12/17/24 01/18/25 Rx [Vitamin A & D Ointment] Apixaban [Eliquis] 5 mg PO BID 01/18/25 01/18/25 History Allergies Allergy/AdvReac Type Severity Reaction Status Date / Time No Known Allergies Allergy Verified 01/18/25 12:40 Surgical - Exam Vital Signs Temp Pulse Resp BP Pulse Ox 98.6 F 101 H 18 142/101 99 01/18/25 12:33 01/18/25 12:33 01/18/25 12:33 01/18/25 12:33 01/18/25 12:33 - General well developed, well nourished, no distress - Eyes normal ocular movement, no icteric - ENT no hearing loss, no congestion - Neck no masses, trachea midline - Respiratory normal respiratory effort, clear to auscultation - Abdomen Abdomen: soft, non tender, no guarding, no rigid, no rebound - Genitourinary Declines a prostate exam normal penis with no external lesions, testicles present - Integumentary no rash, no abnormal pigmentation - Neurologic no disoriented, no combative - Psychiatric oriented to time, oriented to person, oriented to place, speech is normal, memory intact Results - Labs 01/19/25 00:55 01/19/25 00:55 Abnormal Lab Results - Last 24 Hours (Table) 01/18/25 01/18/25 01/18/25 Range/Units 16:01 16:01 22:10 WBC 18.15 H (4.50-10.00) 10*3/uL RBC 2.86 L (4.40-5.60) 10*6/uL Hgb 7.7 L D (13.0-17.0) g/dL Hct 23.4 L (39.6-50.0) % MCH 26.9 L (27.0-32.0) pg Immature Gran # 0.22 H (0.00-0.04) 10*3/uL Neutrophils # 16.09 H (1.80-7.70) 10*3/uL Lymphocytes # 0.65 L (0.90-5.00) 10*3/uL Monocytes # 1.15 H (0.20-1.00) 10*3/uL Eosinophils # 0.01 L (0.04-0.35) 10*3/uL Sodium 133 L (137-145) mmol/L Carbon Dioxide 20 L (22-30) mmol/L BUN 102 H* (9-20) mg/dL Creatinine 3.28 H (0.66-1.25) mg/dL POC Glucose (mg/dL) (70-110) mg/dL Total Protein 5.8 L (6.3-8.2) g/dL Albumin 2.9 L (3.5-5.0) g/dL Urine Protein 1+ H (Negative) Urine Blood Small H (Negative) Ur Leukocyte Esterase Large H (Negative) Urine WBC 102 H (0-5) /hpf Urine WBC Clumps Few H (None) /hpf Urine Bacteria Occasional H (None) /hpf Urine Mucus Rare H (None) /hpf 01/19/25 Range/Units 07:16 WBC (4.50-10.00) 10*3/uL RBC (4.40-5.60) 10*6/uL Hgb (13.0-17.0) g/dL Hct (39.6-50.0) % MCH (27.0-32.0) pg Immature Gran # (0.00-0.04) 10*3/uL Neutrophils # (1.80-7.70) 10*3/uL Lymphocytes # (0.90-5.00) 10*3/uL Monocytes # (0.20-1.00) 10*3/uL Eosinophils # (0.04-0.35) 10*3/uL Sodium (137-145) mmol/L Carbon Dioxide (22-30) mmol/L BUN (9-20) mg/dL Creatinine (0.66-1.25) mg/dL POC Glucose (mg/dL) 124 H (70-110) mg/dL Total Protein (6.3-8.2) g/dL Albumin (3.5-5.0) g/dL Urine Protein (Negative) Urine Blood (Negative) Ur Leukocyte Esterase (Negative) Urine WBC (0-5) /hpf Urine WBC Clumps (None) /hpf Urine Bacteria (None) /hpf Urine Mucus (None) /hpf Diabetes panel 01/18/25 Range/Units 16:01 Sodium 133 L (137-145) mmol/L Potassium 4.0 (3.5-5.1) mmol/L Chloride 100 (98-107) mmol/L Carbon Dioxide 20 L (22-30) mmol/L BUN 102 H* (9-20) mg/dL Creatinine 3.28 H (0.66-1.25) mg/dL Glucose 89 (74-99) mg/dL Calcium 8.9 (8.4-10.2) mg/dL AST 17 (17-59) U/L ALT 18 (4-49) U/L Alkaline Phosphatase 126 (38-126) U/L Total Protein 5.8 L (6.3-8.2) g/dL Albumin 2.9 L (3.5-5.0) g/dL Calcium panel 01/18/25 Range/Units 16:01 Calcium 8.9 (8.4-10.2) mg/dL Albumin 2.9 L (3.5-5.0) g/dL Pituitary panel 01/18/25 Range/Units 16:01 Sodium 133 L (137-145) mmol/L Potassium 4.0 (3.5-5.1) mmol/L Chloride 100 (98-107) mmol/L Carbon Dioxide 20 L (22-30) mmol/L BUN 102 H* (9-20) mg/dL Creatinine 3.28 H (0.66-1.25) mg/dL Glucose 89 (74-99) mg/dL Calcium 8.9 (8.4-10.2) mg/dL Adrenal panel 01/18/25 Range/Units 16:01 Sodium 133 L (137-145) mmol/L Potassium 4.0 (3.5-5.1) mmol/L Chloride 100 (98-107) mmol/L Carbon Dioxide 20 L (22-30) mmol/L BUN 102 H* (9-20) mg/dL Creatinine 3.28 H (0.66-1.25) mg/dL Glucose 89 (74-99) mg/dL Calcium 8.9 (8.4-10.2) mg/dL Total Bilirubin 0.6 (0.2-1.3) mg/dL AST 17 (17-59) U/L ALT 18 (4-49) U/L Alkaline Phosphatase 126 (38-126) U/L Total Protein 5.8 L (6.3-8.2) g/dL Albumin 2.9 L (3.5-5.0) g/dL - Imaging CT scan - abdomen: report reviewed, image reviewed CT scan - pelvis: report reviewed, image reviewed Assessment and Plan Assessment: IMPression: Bilateral hydronephrosis due to chronic incomplete bladder emptying. Outlet obstruction Recommendations: I will obtain a bladder scan to check his postvoid residual. Patient will need started on an alpha-jennifer and follow-up in the office for a voiding trial. hydronephrosis is due to the incomplete bladder emptying is my impression.
--- NOTE | 2025-01-19 11:16 | P.NPCON ---
History of Present Illness - Reason for Consult acute renal failure - History of Present Illness Patient is a 74-year-old male with history of chronic kidney disease stage IV with baseline creatinine 1.8 to 2 mg/dL. 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 Patient is admitted to the hospital with complaints of increased weakness. He had a few falls at home as well. Patient complained of pain in his left leg. There are few lacerations which are dressed. No complaints of abdominal pain nausea vomiting diarrhea, chest pain or shortness of breath. Serum creatinine was 3.4 mg/dL and it was 1.8 on 12/28/2024. 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 Past Psychological History: No Psychological Hx Reported Smoking Status: Former smoker Past Alcohol Use History: Rare Past Drug Use History: Marijuana - Past Family History Father Family Medical History: Diabetes Mellitus, Myocardial Infarction ([place]) Additional Family Medical History / Comment(s): Had leg amputation Mother History Unknown: Yes Family Medical History: No Reported History Sister(s) Family Medical History: Diabetes Mellitus Additional Family Medical History / Comment(s): 1 sister had arm amputated due to diabetes Medications and Allergies Home Medications Medication Instructions Recorded Confirmed Type Acetaminophen Tab [Tylenol] 650 mg PO Q8H PRN 11/17/23 01/18/25 History Magnesium Oxide [Mag-Ox] 400 mg PO DAILY 11/17/23 01/18/25 History Metoprolol Tartrate [Lopressor] 50 mg PO BID-W/MEALS 11/17/23 01/18/25 History Insulin NPH Hum/Reg Insulin Hm 10 unit SQ BID 12/17/23 01/18/25 History [humuLIN 70/30 Kwikpen] predniSONE [Deltasone] 20 mg PO DAILY #30 tab 12/20/23 01/18/25 Rx mycophenolate mofetiL [Cellcept] 250 mg PO BID 04/01/24 01/18/25 History Aspirin EC [Ecotrin Low Dose] 81 mg PO DAILY 09/24/24 01/18/25 History Atorvastatin [Lipitor] 40 mg PO DAILY 09/24/24 01/18/25 History SILVER sulfADIAZINE Cream 1 applic TOPICAL BID 12/07/24 01/18/25 History [Silvadene 1% Cream] Famotidine [Pepcid] 20 mg PO DAILY tab 12/17/24 01/18/25 Rx Sodium Bicarbonate Tab 650 mg PO BID tab 12/17/24 01/18/25 Rx Vits A & D-White Pet-Lanolin 1 applic TOPICAL BID each 12/17/24 01/18/25 Rx [Vitamin A & D Ointment] Apixaban [Eliquis] 5 mg PO BID 01/18/25 01/18/25 History Allergies Allergy/AdvReac Type Severity Reaction Status Date / Time No Known Allergies Allergy Verified 01/18/25 12:40 Physical Exam Vitals: Vital Signs Temp Pulse Pulse Resp BP BP Pulse Ox 01/19/25 07:19 99.2 F 94 16 152/90 99 01/19/25 00:45 98.5 F 69 14 143/72 98 01/18/25 20:57 98.3 F 97 16 110/74 99 01/18/25 20:29 98 17 97 01/18/25 18:41 94 18 153/89 97 01/18/25 14:15 59 L 16 140/117 98 01/18/25 12:33 98.6 F 101 H 18 142/101 99 Intake and Output 01/18/25 01/19/25 01/19/25 22:59 06:59 14:59 Output Total 175 325 Balance -175 -325 Output: Urine 175 325 Other: Voiding Method External Catheter # Voids 2 Weight 87.09 kg 81 kg Patient is awake, comfortable, no acute distress. He is tearful Examination of the heart S1 and S2 Examination of the lungs bilateral breath sounds are heard Abdomen is soft nontender Examination of lower extremities shows lacerations right leg which are currently dressed. 1+ edema right leg and no edema in left leg MD ALLERGY IMMUNOLOGY exam grossly intact Results - Lab Results Most recent lab results Calcium 8.1 mg/dL (8.7-10.3) L 01/19/25 00:55 Phosphorus 3.9 mg/dL (2.4-5.1) 01/19/25 00:55 Magnesium 1.6 mg/dL (1.5-2.4) 01/19/25 00:55 01/19/25 00:55 01/19/25 00:55 Assessment and Plan Assessment: 1. Acute kidney injury secondary to severe anemia and underlying infection. ATN, nonoliguric. Rule out urine retention. UA suggestive of UTI. CT scan shows bilateral hydronephrosis but bladder scan showed 172 mL currently maintained on IV fluids 2. 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 Status post fall 4. Anemia with no active bleeding noted, hemoglobin 6.3 g/dL. Underlying anemia of chronic disease. Rule out iron deficiency 5. Metabolic acidosis maintained on oral sodium bicarb 6. Pyuria rule out UTI Plan: Continue with IV fluids Check iron profile Transfuse packed RBCs Continue oral sodium bicarb Continue with antibiotics Resume CellCept and prednisone Repeat labs in a.m. Continue to avoid nephrotoxic agents Consult urology Thank you for the consultation. We will continue to follow the patient with you during his hospitalization.
--- NOTE | 2025-01-19 11:54 | P.PN ---
Subjective Progress Note Date: 01/19/25 74 year old M with PMH of CKD stage IV, HTN, HLD, DM, HFrEF, DVT presents to the ED for lower abdominal pain. In the ED he underwent extensive evaluation. BP 142/101, HR 101, T 98.6F, RR 18, 99% on RA. CBC, Coag panel, CMP significant for WBC 18.15, RBC 2.86, Hg 7.7, Hct 23.4, Na 133, bicarb 20, BUN 102, Cr 3.28, alb 2.9. Lactic acid 1.7. Lipase 27. Amylase 56. UA large LE with 102 WBCs. EKG sinus tachycardia with PVCs. CXR neg. CT AP bilateral hydronephrosis, bladder wall thickening, multilevel superior endplate compression deformities (seen previously), diverticulosis. Started on Rocephin and admitted for further workup and mangement. 01/19 Patient was seen and examined. Pleasantly confused. Reports no complaints. Denies melena or hematochezia. Daughter at bedside. CBC and CMP significant for WBC 16.17, RBC 2.44, Hg 6.3, Hct 20.8, bicarb 19.1, AG 15.9, BUN 86.7, Cr 3.4, glu 118, Ca 8.1, T. Bili < 0.2, alb 2.5. CRP 18.6. A1c 6.4. Urology consulted, hydro due to chronic outlet obstruction. General: non toxic, no distress, appears at stated age Derm: warm, dry, abrasions over the RU + bilateral LE Head: atraumatic, normocephalic, symmetric Eyes: EOMI, no lid lag, anicteric sclera Mouth: no lip lesion, mucus membranes moist Cardiovascular: S1S2 reg, + murmur Lungs: Decreased BS bilateral, no rhonchi, no rales , no accessory muscle use Ext: no gross muscle atrophy, 2-3+ LE edema, no contractures Neuro: no focal neuro deficits Psych: Alert and oriented. Based on my assessment of this patient, this patient meets a high complexity level of care. Sepsis secondary to UTI: Leukocytosis + tachycardia + UA on admission. Obtain UCx. Continue NS at 75 cc/hr. Judicious use of fluids given EF of 30-35%. Follow BCx. Continue Rocephin 2g IV QD. Acute on chronic anemia: No signs of active bleeding. Transfuse 1 PRBC. Obtain iron studies. Obtain stool occult. Repeat CBC in the AM. 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 Start Flomax 0.4 mg PO BID. Cellcept 250 mg PO BID. Prednisone 20 mg PO QD. Bladder scan PRN. Nephrology and Urology on board. Anion gap metabolic acidosis: Likely due to CKD. Continue sodium bicarb 650 mg PO BID. HTN: Metoprolol 50 mg PO BID. HLD: Lipitor 40 mg PO QD. DM: ISS + Accuchecks ACHS along with hypoglycemic precautions. HFrEF: 3+ LE edema. CXR no acute process. DVT: Eliquis 5 mg PO BID. CODE STATUS: FULL CODE. DVT Prophylaxis: Eliquis. GI Prophylaxis: Protonix PO Designated medical POA if patient is not able to make medical decisions for themselves: I have reviewed the following industry consultant notes: Urology, Nephrology. I have reviewed the results of the following tests: CBC, CMP, CRP, A1c. I have ordered the following tests: Iron studies. UCx. CBC and BMP in the AM. I have discussed the care of this patient with the following independent historian: Daughter. RN. I have independently interpreted the following test below: I have discussed the management of this patient with the following physician: Objective - Vital Signs Vital signs: Vital Signs Temp 99.2 F 01/19/25 07:19 Pulse 94 01/19/25 07:19 Resp 16 01/19/25 07:19 BP 152/90 01/19/25 07:19 Pulse Ox 99 01/19/25 07:19 FiO2 Intake & Output 01/18/25 01/19/25 01/19/25 18:59 06:59 18:59 Output Total 500 Balance -500 Weight 87.09 kg 81 kg Output: Urine 500 Other: Voiding Method External Catheter # Voids 2 - Labs CBC & Chem 7: 01/19/25 00:55 01/19/25 00:55 Labs: Abnormal Lab Results - Last 24 Hours (Table) 01/18/25 01/18/25 01/18/25 Range/Units 16:01 16:01 22:10 WBC 18.15 H (4.50-10.00) 10*3/uL RBC 2.86 L (4.40-5.60) 10*6/uL Hgb 7.7 L D (13.0-17.0) g/dL Hct 23.4 L (39.6-50.0) % MCH 26.9 L (27.0-32.0) pg MCHC (32.0-37.0) g/dL RDW (11.5-14.5) % Immature Gran # 0.22 H (0.00-0.04) 10*3/uL Neutrophils # 16.09 H (1.80-7.70) 10*3/uL Lymphocytes # 0.65 L (0.90-5.00) 10*3/uL Monocytes # 1.15 H (0.20-1.00) 10*3/uL Eosinophils # 0.01 L (0.04-0.35) 10*3/uL Crenated Cell (None Seen) ESR (0-20) mm/Hr Sodium 133 L (137-145) mmol/L Carbon Dioxide 20 L (22-30) mmol/L Anion Gap (4.00-12.00) mmol/L BUN 102 H* (9-20) mg/dL Creatinine 3.28 H (0.66-1.25) mg/dL Est GFR (CKD-EPI) (>=60) BUN/Creatinine Ratio (12.00-20.00) Ratio Glucose (70-110) mg/dL POC Glucose (mg/dL) (70-110) mg/dL Hemoglobin A1c (<=6.0) % Calcium (8.7-10.3) mg/dL Total Bilirubin (0.3-1.2) mg/dL C-Reactive Protein (0.00-0.80) mg/dL Total Protein 5.8 L (6.3-8.2) g/dL Albumin 2.9 L (3.5-5.0) g/dL Albumin/Globulin Ratio (1.60-3.17) Ratio Urine Protein 1+ H (Negative) Urine Blood Small H (Negative) Ur Leukocyte Esterase Large H (Negative) Urine WBC 102 H (0-5) /hpf Urine WBC Clumps Few H (None) /hpf Urine Bacteria Occasional H (None) /hpf Urine Mucus Rare H (None) /hpf 01/19/25 01/19/25 01/19/25 Range/Units 00:55 00:55 00:55 WBC 16.17 H (4.50-10.00) 10*3/uL RBC 2.44 L (4.40-5.60) 10*6/uL Hgb 6.3 A* (13.0-17.0) g/dL Hct 20.8 L (39.6-50.0) % MCH 25.8 L (27.0-32.0) pg MCHC 30.3 L (32.0-37.0) g/dL RDW 16.4 H (11.5-14.5) % Immature Gran # 0.16 H (0.00-0.04) 10*3/uL Neutrophils # 14.37 H (1.80-7.70) 10*3/uL Lymphocytes # 0.63 L (0.90-5.00) 10*3/uL Monocytes # (0.20-1.00) 10*3/uL Eosinophils # 0.03 L (0.04-0.35) 10*3/uL Crenated Cell 2+ A (None Seen) ESR (0-20) mm/Hr Sodium (137-145) mmol/L Carbon Dioxide 19.1 L (22-30) mmol/L Anion Gap 15.90 H (4.00-12.00) mmol/L BUN 86.7 H (9-20) mg/dL Creatinine 3.4 H (0.66-1.25) mg/dL Est GFR (CKD-EPI) 18 L (>=60) BUN/Creatinine Ratio 25.50 H (12.00-20.00) Ratio Glucose 118 H (70-110) mg/dL POC Glucose (mg/dL) (70-110) mg/dL Hemoglobin A1c 6.4 H (<=6.0) % Calcium 8.1 L (8.7-10.3) mg/dL Total Bilirubin <0.2 L (0.3-1.2) mg/dL C-Reactive Protein (0.00-0.80) mg/dL Total Protein 5.2 L (6.3-8.2) g/dL Albumin 2.5 L (3.5-5.0) g/dL Albumin/Globulin Ratio 0.93 L (1.60-3.17) Ratio Urine Protein (Negative) Urine Blood (Negative) Ur Leukocyte Esterase (Negative) Urine WBC (0-5) /hpf Urine WBC Clumps (None) /hpf Urine Bacteria (None) /hpf Urine Mucus (None) /hpf 01/19/25 01/19/25 01/19/25 Range/Units 00:58 00:58 07:16 WBC (4.50-10.00) 10*3/uL RBC (4.40-5.60) 10*6/uL Hgb (13.0-17.0) g/dL Hct (39.6-50.0) % MCH (27.0-32.0) pg MCHC (32.0-37.0) g/dL RDW (11.5-14.5) % Immature Gran # (0.00-0.04) 10*3/uL Neutrophils # (1.80-7.70) 10*3/uL Lymphocytes # (0.90-5.00) 10*3/uL Monocytes # (0.20-1.00) 10*3/uL Eosinophils # (0.04-0.35) 10*3/uL Crenated Cell (None Seen) ESR 58 H (0-20) mm/Hr Sodium (137-145) mmol/L Carbon Dioxide (22-30) mmol/L Anion Gap (4.00-12.00) mmol/L BUN (9-20) mg/dL Creatinine (0.66-1.25) mg/dL Est GFR (CKD-EPI) (>=60) BUN/Creatinine Ratio (12.00-20.00) Ratio Glucose (70-110) mg/dL POC Glucose (mg/dL) 124 H (70-110) mg/dL Hemoglobin A1c (<=6.0) % Calcium (8.7-10.3) mg/dL Total Bilirubin (0.3-1.2) mg/dL C-Reactive Protein 18.60 H (0.00-0.80) mg/dL Total Protein (6.3-8.2) g/dL Albumin (3.5-5.0) g/dL Albumin/Globulin Ratio (1.60-3.17) Ratio Urine Protein (Negative) Urine Blood (Negative) Ur Leukocyte Esterase (Negative) Urine WBC (0-5) /hpf Urine WBC Clumps (None) /hpf Urine Bacteria (None) /hpf Urine Mucus (None) /hpf
[2025-01-19] MEDS ORDERED: VANCOMYCIN 1,500 MG in SODIUM CHLORIDE 0.9% 500 ML 500 ML IVPB ONE (12:00)
[2025-01-19 12:39] LABS: Glucose,Whole Blood 200 mg/dL (70-110)
[2025-01-19] MEDS: TAMSULOSIN 0.4 MG CAP.ER.24H PO SCH (12:47)
[2025-01-19 17:14] LABS: Glucose,Whole Blood 163 mg/dL (70-110)
[2025-01-19 19:00] LABS: Ferritin 363.0 ng/mL (22.0-322.0); Iron 12.0 UG/DL (65-175); Total Iron Binding Capacity 193.0 UG/DL (228-460)
[2025-01-19 20:05] LABS: Glucose,Whole Blood 172 mg/dL (70-110)
[2025-01-20 07:56] LABS: Glucose,Whole Blood 151 mg/dL (70-110)
[2025-01-20 08:46] LABS: HCT 23.0 % (39.6-50.0); HGB 7.3 g/dL (13.0-17.0); MCH 26.4 pg (27.0-32.0); MCHC 31.7 g/dL (32.0-37.0); MCV 83.3 fL (80.0-97.0); Platelet Count 304 10*3/uL (140-440); RBC 2.76 10*6/uL (4.40-5.60); RDW 15.8 % (11.5-14.5); WBC 11.66 10*3/uL (4.50-10.00)
[2025-01-20] MEDS: predniSONE 20 MG TAB PO SCH (09:04)
[2025-01-20 09:06] LABS: African American GFR (CKD) 23 (>60 ml/min/1.73 sqM); Anion Gap 9 mmol/L; Blood Urea Nitrogen 73 mg/dL (9-20); Calcium 8.0 mg/dL (8.4-10.2); Carbon Dioxide 19 mmol/L (22-30); Chloride 106 mmol/L (98-107); Glucose 115 mg/dL (74-99); Non-African American GFR(CKD) 20 (>60 ml/min/1.73 sqM); Potassium 3.3 mmol/L (3.5-5.1); Sodium 134 mmol/L (137-145)
--- NOTE | 2025-01-20 10:03 | P.PN ---
Subjective Progress Note Date: 01/20/25 The patient is in the hospital with abdominal pain. We were asked to see for possible urine retention. He had a bladder scan as a pvr identifying 176 ml He was started of tamsulosin yesterday. Objective - Vital Signs Vital signs: Vital Signs Temp 97.7 F 01/20/25 07:32 Pulse 76 01/20/25 07:32 Resp 18 01/20/25 07:32 BP 168/71 01/20/25 07:32 Pulse Ox 99 01/20/25 07:32 FiO2 Intake & Output 01/19/25 01/20/25 01/20/25 18:59 06:59 18:59 Intake Total 1470 Output Total 600 950 Balance 870 -950 Weight 81 kg Intake: Oral 1160 Blood Product 310 Rc As-1 Unit 310 [id number] Output: Urine 600 950 Other: Voiding Method External Catheter External Catheter - Labs CBC & Chem 7: 01/20/25 08:25 01/20/25 08:25 Labs: Abnormal Lab Results - Last 24 Hours (Table) 01/19/25 01/19/25 01/19/25 Range/Units 10:40 10:40 12:38 WBC (4.50-10.00) 10*3/uL RBC (4.40-5.60) 10*6/uL Hgb (13.0-17.0) g/dL Hct (39.6-50.0) % MCH (27.0-32.0) pg MCHC (32.0-37.0) g/dL RDW (11.5-14.5) % Sodium (137-145) mmol/L Potassium (3.5-5.1) mmol/L Carbon Dioxide (22-30) mmol/L BUN (9-20) mg/dL Creatinine (0.66-1.25) mg/dL Glucose (74-99) mg/dL POC Glucose (mg/dL) 200 H (70-110) mg/dL Calcium (8.4-10.2) mg/dL Iron 12 L (65-175) UG/DL TIBC 193 L (228-460) UG/DL % Saturation 6.22 L (15.00-50.00) Transferrin 138.0 L (204.0-354.0) mg/dL Ferritin 363.0 H (22.0-322.0) ng/mL Crossmatch See Detail 01/19/25 01/19/25 01/20/25 Range/Units 17:13 20:04 07:45 WBC (4.50-10.00) 10*3/uL RBC (4.40-5.60) 10*6/uL Hgb (13.0-17.0) g/dL Hct (39.6-50.0) % MCH (27.0-32.0) pg MCHC (32.0-37.0) g/dL RDW (11.5-14.5) % Sodium (137-145) mmol/L Potassium (3.5-5.1) mmol/L Carbon Dioxide (22-30) mmol/L BUN (9-20) mg/dL Creatinine (0.66-1.25) mg/dL Glucose (74-99) mg/dL POC Glucose (mg/dL) 163 H 172 H 151 H (70-110) mg/dL Calcium (8.4-10.2) mg/dL Iron (65-175) UG/DL TIBC (228-460) UG/DL % Saturation (15.00-50.00) Transferrin (204.0-354.0) mg/dL Ferritin (22.0-322.0) ng/mL Crossmatch 01/20/25 01/20/25 Range/Units 08:25 08:25 WBC 11.66 H (4.50-10.00) 10*3/uL RBC 2.76 L (4.40-5.60) 10*6/uL Hgb 7.3 L (13.0-17.0) g/dL Hct 23.0 L (39.6-50.0) % MCH 26.4 L (27.0-32.0) pg MCHC 31.7 L (32.0-37.0) g/dL RDW 15.8 H (11.5-14.5) % Sodium 134 L (137-145) mmol/L Potassium 3.3 L (3.5-5.1) mmol/L Carbon Dioxide 19 L (22-30) mmol/L BUN 73 H (9-20) mg/dL Creatinine 2.99 H (0.66-1.25) mg/dL Glucose 115 H (74-99) mg/dL POC Glucose (mg/dL) (70-110) mg/dL Calcium 8.0 L (8.4-10.2) mg/dL Iron (65-175) UG/DL TIBC (228-460) UG/DL % Saturation (15.00-50.00) Transferrin (204.0-354.0) mg/dL Ferritin (22.0-322.0) ng/mL Crossmatch Microbiology - Last 24 Hours (Table) 01/18/25 16:39 Blood Culture - Preliminary Blood 01/18/25 15:32 Gram Stain - Preliminary Arm - Right 01/18/25 15:30 Gram Stain - Preliminary Leg - Right Assessment and Plan Assessment: Impression: Incomplete bladder emptying probably secondary to bph Plan: We will see how he does with the tamsulosin He will need fu in the office.
[2025-01-20] MEDS: ACETAMINOPHEN TAB 325 MG TAB PO PRN (10:44)
[2025-01-20] MEDS: POTASSIUM CHLORIDE ER 20 MEQ TAB.ER PO STA (10:45)
--- NOTE | 2025-01-20 12:17 | P.PN ---
Subjective Patient is seen for follow-up for acute kidney injury And chronic kidney disease. Currently maintained on IV fluids. Renal function has improved. Serum creatinine decreased to 2.9. No significant complaints today. Hemoglobin 7.3 today Objective - Vital Signs Vital signs: Vital Signs Temp 97.7 F 01/20/25 07:32 Pulse 76 01/20/25 07:32 Resp 18 01/20/25 07:32 BP 168/71 01/20/25 07:32 Pulse Ox 99 01/20/25 07:32 FiO2 Intake & Output 01/19/25 01/20/25 01/20/25 18:59 06:59 18:59 Intake Total 1470 Output Total 600 950 Balance 870 -950 Weight 81 kg Intake: Oral 1160 Blood Product 310 Rc As-1 Unit 310 [id number] Output: Urine 600 950 Other: Voiding Method External Catheter External Catheter - Exam Patient is awake, comfortable, no acute distress. He is tearful Examination of the heart S1 and S2 Examination of the lungs bilateral breath sounds are heard Abdomen is soft nontender Examination of lower extremities shows lacerations right leg which are currently dressed. 1+ edema right leg and no edema in left leg BECK TENDER exam grossly intact - Labs CBC & Chem 7: 01/20/25 08:25 01/20/25 08:25 Labs: Abnormal Lab Results - Last 24 Hours (Table) 01/19/25 01/19/25 01/19/25 Range/Units 10:40 10:40 12:38 WBC (4.50-10.00) 10*3/uL RBC (4.40-5.60) 10*6/uL Hgb (13.0-17.0) g/dL Hct (39.6-50.0) % MCH (27.0-32.0) pg MCHC (32.0-37.0) g/dL RDW (11.5-14.5) % Sodium (137-145) mmol/L Potassium (3.5-5.1) mmol/L Carbon Dioxide (22-30) mmol/L BUN (9-20) mg/dL Creatinine (0.66-1.25) mg/dL Glucose (74-99) mg/dL POC Glucose (mg/dL) 200 H (70-110) mg/dL Calcium (8.4-10.2) mg/dL Iron 12 L (65-175) UG/DL TIBC 193 L (228-460) UG/DL % Saturation 6.22 L (15.00-50.00) Transferrin 138.0 L (204.0-354.0) mg/dL Ferritin 363.0 H (22.0-322.0) ng/mL Crossmatch See Detail 01/19/25 01/19/25 01/20/25 Range/Units 17:13 20:04 07:45 WBC (4.50-10.00) 10*3/uL RBC (4.40-5.60) 10*6/uL Hgb (13.0-17.0) g/dL Hct (39.6-50.0) % MCH (27.0-32.0) pg MCHC (32.0-37.0) g/dL RDW (11.5-14.5) % Sodium (137-145) mmol/L Potassium (3.5-5.1) mmol/L Carbon Dioxide (22-30) mmol/L BUN (9-20) mg/dL Creatinine (0.66-1.25) mg/dL Glucose (74-99) mg/dL POC Glucose (mg/dL) 163 H 172 H 151 H (70-110) mg/dL Calcium (8.4-10.2) mg/dL Iron (65-175) UG/DL TIBC (228-460) UG/DL % Saturation (15.00-50.00) Transferrin (204.0-354.0) mg/dL Ferritin (22.0-322.0) ng/mL Crossmatch 01/20/25 01/20/25 Range/Units 08:25 08:25 WBC 11.66 H (4.50-10.00) 10*3/uL RBC 2.76 L (4.40-5.60) 10*6/uL Hgb 7.3 L (13.0-17.0) g/dL Hct 23.0 L (39.6-50.0) % MCH 26.4 L (27.0-32.0) pg MCHC 31.7 L (32.0-37.0) g/dL RDW 15.8 H (11.5-14.5) % Sodium 134 L (137-145) mmol/L Potassium 3.3 L (3.5-5.1) mmol/L Carbon Dioxide 19 L (22-30) mmol/L BUN 73 H (9-20) mg/dL Creatinine 2.99 H (0.66-1.25) mg/dL Glucose 115 H (74-99) mg/dL POC Glucose (mg/dL) (70-110) mg/dL Calcium 8.0 L (8.4-10.2) mg/dL Iron (65-175) UG/DL TIBC (228-460) UG/DL % Saturation (15.00-50.00) Transferrin (204.0-354.0) mg/dL Ferritin (22.0-322.0) ng/mL Crossmatch Microbiology - Last 24 Hours (Table) 01/18/25 16:39 Blood Culture - Preliminary Blood 01/18/25 15:32 Gram Stain - Preliminary Arm - Right 01/18/25 15:30 Gram Stain - Preliminary Leg - Right Assessment and Plan Assessment: 1. Acute kidney injury secondary to severe anemia and underlying infection. ATN, nonoliguric. UA suggestive of UTI. CT scan shows bilateral hydronephrosis but bladder scan showed 172 mL currently maintained on IV fluids. Renal function is improving 2. 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 Status post fall 4. Anemia with no active bleeding noted, hemoglobin 6.3 g/dL. Underlying anemia of chronic disease. Rule out iron deficiency 5. Metabolic acidosis maintained on oral sodium bicarb 6. Pyuria rule out UTI Plan: Continue with IV fluids Add IV iron Transfuse packed RBCs Continue oral sodium bicarb Continue with antibiotics Continue CellCept and prednisone Repeat labs in a.m. Continue to avoid nephrotoxic agents Continue Flomax
[2025-01-20 12:24] LABS: Glucose,Whole Blood 165 mg/dL (70-110)
--- NOTE | 2025-01-20 13:37 | P.PN ---
Subjective Progress Note Date: 01/20/25 74 year old M with PMH of CKD stage IV, HTN, HLD, DM, HFrEF, DVT presents to the ED for lower abdominal pain. In the ED he underwent extensive evaluation. BP 142/101, HR 101, T 98.6F, RR 18, 99% on RA. CBC, Coag panel, CMP significant for WBC 18.15, RBC 2.86, Hg 7.7, Hct 23.4, Na 133, bicarb 20, BUN 102, Cr 3.28, alb 2.9. Lactic acid 1.7. Lipase 27. Amylase 56. UA large LE with 102 WBCs. EKG sinus tachycardia with PVCs. CXR neg. CT AP bilateral hydronephrosis, bladder wall thickening, multilevel superior endplate compression deformities (seen previously), diverticulosis. Started on Rocephin and admitted for further workup and mangement. 01/19 Patient was seen and examined. Pleasantly confused. Reports no complaints. Denies melena or hematochezia. Daughter at bedside. CBC and CMP significant for WBC 16.17, RBC 2.44, Hg 6.3, Hct 20.8, bicarb 19.1, AG 15.9, BUN 86.7, Cr 3.4, glu 118, Ca 8.1, T. Bili < 0.2, alb 2.5. CRP 18.6. A1c 6.4. Urology consulted, hydro due to chronic outlet obstruction. 01/20 Patient was seen and examined. Confusion improved. Reports no complaints. CBC and BMP significant for WBC 11.66, RBC 2.76, Hg 7.3, Hct 23, Na 134, K 3.3, bicarb 19, BUN 73, Cr 2.99, glu 115, Ca 8. Mag 1.6. BCx prelim neg so far. Iron studies show Fe 12, Ferritin 363. General: non toxic, no distress, appears at stated age Derm: warm, dry, abrasions over the RU + bilateral LE Head: atraumatic, normocephalic, symmetric Eyes: EOMI, no lid lag, anicteric sclera Mouth: no lip lesion, mucus membranes moist Cardiovascular: S1S2 reg, + murmur Lungs: Decreased BS bilateral, no rhonchi, no rales , no accessory muscle use Ext: no gross muscle atrophy, 2-3+ LE edema, no contractures Neuro: no focal neuro deficits Psych: Alert and oriented. Based on my assessment of this patient, this patient meets a high complexity level of care. Sepsis secondary to UTI: Leukocytosis + tachycardia + UA on admission. Follow up UCx. Continue NS at 75 cc/hr. Judicious use of fluids given EF of 30-35%. Follow BCx. Continue Rocephin 2g IV QD. Acute on chronic anemia: No signs of active bleeding. Transfused 1 PRBC 01/19. Iron studies shows Fe def, started on IV iron 01/20. Obtain stool occult. Repeat CBC in the AM. 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 Continue Flomax 0.4 mg PO BID. Cellcept 250 mg PO BID. Prednisone 20 mg PO QD. Bladder scan PRN. Nephrology and Urology on board. Anion gap metabolic acidosis: Likely due to CKD. Increase sodium bicarb from 650 mg PO BID to TID. HypoK: KCl 40 meq PO x 1. Repeat in the AM. HTN: Metoprolol 50 mg PO BID. HLD: Lipitor 40 mg PO QD. DM: ISS + Accuchecks ACHS along with hypoglycemic precautions. HFrEF: 3+ LE edema. CXR no acute process. DVT: Eliquis 5 mg PO BID. Continue antibiotics. Cultures pending. Renal function improving. PT and OT consulted. CODE STATUS: FULL CODE. DVT Prophylaxis: Eliquis. GI Prophylaxis: Protonix PO Designated medical POA if patient is not able to make medical decisions for themselves: I have reviewed the following food consultant notes: Urology, Nephrology. I have reviewed the results of the following tests: CBC, BMP, Iron studies, BCx. I have ordered the following tests: Iron studies. UCx pending. CBC and BMP in the AM. I have discussed the care of this patient with the following independent historian: I have independently interpreted the following test below: I have discussed the management of this patient with the following physician: Objective - Vital Signs Vital signs: Vital Signs Temp 98.4 F 01/20/25 12:45 Pulse 64 01/20/25 12:45 Resp 18 01/20/25 12:45 BP 128/73 01/20/25 12:45 Pulse Ox 98 01/20/25 12:45 FiO2 Intake & Output 07/01/20/25 01/20/25 18:59 06:59 18:59 Intake Total 1470 Output Total 600 950 Balance 870 -950 Weight 81 kg Intake: Oral 1160 Blood Product 310 Rc As-1 Unit 310 [id number] Output: Urine 600 950 Other: Voiding Method External Catheter External Catheter External Catheter - Labs CBC & Chem 7: 01/20/25 08:25 01/20/25 08:25 Labs: Abnormal Lab Results - Last 24 Hours (Table) 01/19/25 01/19/25 01/19/25 Range/Units 10:40 10:40 17:13 WBC (4.50-10.00) 10*3/uL RBC (4.40-5.60) 10*6/uL Hgb (13.0-17.0) g/dL Hct (39.6-50.0) % MCH (27.0-32.0) pg MCHC (32.0-37.0) g/dL RDW (11.5-14.5) % Sodium (137-145) mmol/L Potassium (3.5-5.1) mmol/L Carbon Dioxide (22-30) mmol/L BUN (9-20) mg/dL Creatinine (0.66-1.25) mg/dL Glucose (74-99) mg/dL POC Glucose (mg/dL) 163 H (70-110) mg/dL Calcium (8.4-10.2) mg/dL Iron 12 L (65-175) UG/DL TIBC 193 L (228-460) UG/DL % Saturation 6.22 L (15.00-50.00) Transferrin 138.0 L (204.0-354.0) mg/dL Ferritin 363.0 H (22.0-322.0) ng/mL Crossmatch See Detail 01/19/25 01/20/25 01/20/25 Range/Units 20:04 07:45 08:25 WBC 11.66 H (4.50-10.00) 10*3/uL RBC 2.76 L (4.40-5.60) 10*6/uL Hgb 7.3 L (13.0-17.0) g/dL Hct 23.0 L (39.6-50.0) % MCH 26.4 L (27.0-32.0) pg MCHC 31.7 L (32.0-37.0) g/dL RDW 15.8 H (11.5-14.5) % Sodium (137-145) mmol/L Potassium (3.5-5.1) mmol/L Carbon Dioxide (22-30) mmol/L BUN (9-20) mg/dL Creatinine (0.66-1.25) mg/dL Glucose (74-99) mg/dL POC Glucose (mg/dL) 172 H 151 H (70-110) mg/dL Calcium (8.4-10.2) mg/dL Iron (65-175) UG/DL TIBC (228-460) UG/DL % Saturation (15.00-50.00) Transferrin (204.0-354.0) mg/dL Ferritin (22.0-322.0) ng/mL Crossmatch 01/20/25 01/20/25 Range/Units 08:25 12:23 WBC (4.50-10.00) 10*3/uL RBC (4.40-5.60) 10*6/uL Hgb (13.0-17.0) g/dL Hct (39.6-50.0) % MCH (27.0-32.0) pg MCHC (32.0-37.0) g/dL RDW (11.5-14.5) % Sodium 134 L (137-145) mmol/L Potassium 3.3 L (3.5-5.1) mmol/L Carbon Dioxide 19 L (22-30) mmol/L BUN 73 H (9-20) mg/dL Creatinine 2.99 H (0.66-1.25) mg/dL Glucose 115 H (74-99) mg/dL POC Glucose (mg/dL) 165 H (70-110) mg/dL Calcium 8.0 L (8.4-10.2) mg/dL Iron (65-175) UG/DL TIBC (228-460) UG/DL % Saturation (15.00-50.00) Transferrin (204.0-354.0) mg/dL Ferritin (22.0-322.0) ng/mL Crossmatch Microbiology - Last 24 Hours (Table) 01/18/25 16:39 Blood Culture - Preliminary Blood 01/18/25 15:32 Gram Stain - Preliminary Arm - Right 01/18/25 15:30 Gram Stain - Preliminary Leg - Right
[2025-01-20 17:33] LABS: Glucose,Whole Blood 249 mg/dL (70-110)
[2025-01-20] MEDS: SODIUM BICARBONATE TAB 650 MG TAB PO SCH (17:59)
[2025-01-20 20:06] LABS: Glucose,Whole Blood 271 mg/dL (70-110)
[2025-01-21 07:23] LABS: African American GFR (CKD) 23 (>60 ml/min/1.73 sqM); Anion Gap 8 mmol/L; Blood Urea Nitrogen 74 mg/dL (9-20); Calcium 8.1 mg/dL (8.4-10.2); Carbon Dioxide 17 mmol/L (22-30); Chloride 109 mmol/L (98-107); Glucose 150 mg/dL (74-99); Magnesium 1.7 mg/dL (1.6-2.3); Non-African American GFR(CKD) 20 (>60 ml/min/1.73 sqM); Potassium 4.4 mmol/L (3.5-5.1); Sodium 134 mmol/L (137-145)
[2025-01-21 07:46] LABS: HCT 22.5 % (39.6-50.0); HGB 7.3 g/dL (13.0-17.0); MCH 26.5 pg (27.0-32.0); MCHC 32.4 g/dL (32.0-37.0); MCV 81.8 fL (80.0-97.0); Platelet Count 321 10*3/uL (140-440); RBC 2.75 10*6/uL (4.40-5.60); RDW 15.6 % (11.5-14.5); WBC 10.84 10*3/uL (4.50-10.00)
[2025-01-21 07:53] LABS: Glucose,Whole Blood 241 mg/dL (70-110)
--- NOTE | 2025-01-21 08:28 | P.PN ---
Subjective Progress Note Date: 01/21/25 We spokenare seeg the patient for voiding dysfunctio [id number] (n. He was placed on Tamsulosin and states that he is voiding betteri Objective - Vital Signs Vital signs: Vital Signs Temp 97.5 F L 01/21/25 07:44 Pulse 64 01/21/25 07:44 Resp 20 01/21/25 07:44 BP 176/93 01/21/25 07:44 Pulse Ox 99 01/21/25 00:43 FiO2 Intake & Output 01/20/25 01/21/25 01/21/25 18:59 06:59 18:59 Intake Total 1320 Output Total 950 1000 Balance 370 -1000 Weight 85.5 kg Intake: Oral 1320 Output: Urine 950 1000 Other: Voiding Method External Catheter - Labs CBC & Chem 7: 01/21/25 06:47 01/21/25 06:47 Labs: Abnormal Lab Results - Last 24 Hours (Table) 01/20/25 01/20/25 01/20/25 Range/Units 08:25 08:25 12:23 WBC 11.66 H (4.50-10.00) 10*3/uL RBC 2.76 L (4.40-5.60) 10*6/uL Hgb 7.3 L (13.0-17.0) g/dL Hct 23.0 L (39.6-50.0) % MCH 26.4 L (27.0-32.0) pg MCHC 31.7 L (32.0-37.0) g/dL RDW 15.8 H (11.5-14.5) % Sodium 134 L (137-145) mmol/L Potassium 3.3 L (3.5-5.1) mmol/L Chloride (98-107) mmol/L Carbon Dioxide 19 L (22-30) mmol/L BUN 73 H (9-20) mg/dL Creatinine 2.99 H (0.66-1.25) mg/dL Glucose 115 H (74-99) mg/dL POC Glucose (mg/dL) 165 H (70-110) mg/dL Calcium 8.0 L (8.4-10.2) mg/dL 01/20/25 01/20/25 01/21/25 Range/Units 17:29 20:02 06:47 WBC 10.84 H (4.50-10.00) 10*3/uL RBC 2.75 L (4.40-5.60) 10*6/uL Hgb 7.3 L (13.0-17.0) g/dL Hct 22.5 L (39.6-50.0) % MCH 26.5 L (27.0-32.0) pg MCHC (32.0-37.0) g/dL RDW 15.6 H (11.5-14.5) % Sodium (137-145) mmol/L Potassium (3.5-5.1) mmol/L Chloride (98-107) mmol/L Carbon Dioxide (22-30) mmol/L BUN (9-20) mg/dL Creatinine (0.66-1.25) mg/dL Glucose (74-99) mg/dL POC Glucose (mg/dL) 249 H 271 H (70-110) mg/dL Calcium (8.4-10.2) mg/dL 01/21/25 01/21/25 Range/Units 06:47 07:51 WBC (4.50-10.00) 10*3/uL RBC (4.40-5.60) 10*6/uL Hgb (13.0-17.0) g/dL Hct (39.6-50.0) % MCH (27.0-32.0) pg MCHC (32.0-37.0) g/dL RDW (11.5-14.5) % Sodium 134 L (137-145) mmol/L Potassium (3.5-5.1) mmol/L Chloride 109 H (98-107) mmol/L Carbon Dioxide 17 L (22-30) mmol/L BUN 74 H (9-20) mg/dL Creatinine 2.89 H (0.66-1.25) mg/dL Glucose 150 H (74-99) mg/dL POC Glucose (mg/dL) 241 H (70-110) mg/dL Calcium 8.1 L (8.4-10.2) mg/dL Microbiology - Last 24 Hours (Table) 01/18/25 16:39 Blood Culture - Preliminary Blood 01/18/25 15:30 Anaerobic Culture - Preliminary Leg - Right 01/18/25 15:32 Anaerobic Culture - Preliminary Arm - Right 01/18/25 15:32 Gram Stain - Preliminary Arm - Right Wound Culture - Preliminary Methicillin resist S. aureus Proteus mirabilis 01/18/25 15:30 Gram Stain - Preliminary Leg - Right Wound Culture - Preliminary Presumptive Staph aureus Pseudomonas aeruginosa Morganella morganii sp sibonii Proteus mirabilis Assessment and Plan Assessment: Impression: bno with incomplete void improved with tamsulosin Recommendation": He should c/w the tamsulosin. I will repeat a pvr today.
--- NOTE | 2025-01-21 11:33 | P.PN ---
Subjective Progress Note Date: 01/21/25 74 year old M with PMH of CKD stage IV, HTN, HLD, DM, HFrEF, DVT presents to the ED for lower abdominal pain. In the ED he underwent extensive evaluation. BP 142/101, HR 101, T 98.6F, RR 18, 99% on RA. CBC, Coag panel, CMP significant for WBC 18.15, RBC 2.86, Hg 7.7, Hct 23.4, Na 133, bicarb 20, BUN 102, Cr 3.28, alb 2.9. Lactic acid 1.7. Lipase 27. Amylase 56. UA large LE with 102 WBCs. EKG sinus tachycardia with PVCs. CXR neg. CT AP bilateral hydronephrosis, bladder wall thickening, multilevel superior endplate compression deformities (seen previously), diverticulosis. Started on Rocephin and admitted for further workup and mangement. 01/19 Patient was seen and examined. Pleasantly confused. Reports no complaints. Denies melena or hematochezia. Daughter at bedside. CBC and CMP significant for WBC 16.17, RBC 2.44, Hg 6.3, Hct 20.8, bicarb 19.1, AG 15.9, BUN 86.7, Cr 3.4, glu 118, Ca 8.1, T. Bili < 0.2, alb 2.5. CRP 18.6. A1c 6.4. Urology consulted, hydro due to chronic outlet obstruction. 01/20 Patient was seen and examined. Confusion improved. Reports no complaints. CBC and BMP significant for WBC 11.66, RBC 2.76, Hg 7.3, Hct 23, Na 134, K 3.3, bicarb 19, BUN 73, Cr 2.99, glu 115, Ca 8. Mag 1.6. BCx prelim neg so far. Iron studies show Fe 12, Ferritin 363. 01/21 Patient was seen and examined. Reports no complaints. CBC and BMP significant for WBC 10.84, RBC 2.75, Hg 7.3, Hct 22.5, Na 134, Cl 109, bicarb 17, BUN 74, Cr 2.89, glu 150, Ca 8.1. Mag 1.7. BCx prelim neg so far. UCx lupe wing GNB. Wound Cx growing MRSA, Proteus, Pseudomonas, Morganella. General: non toxic, no distress, appears at stated age Derm: warm, dry, abrasions over the RU + bilateral LE Head: atraumatic, normocephalic, symmetric Eyes: EOMI, no lid lag, anicteric sclera Mouth: no lip lesion, mucus membranes moist Cardiovascular: S1S2 reg, + murmur Lungs: Decreased BS bilateral, no rhonchi, no rales , no accessory muscle use Ext: no gross muscle atrophy, 2-3+ LE edema, no contractures Neuro: no focal neuro deficits Psych: Alert and oriented. Based on my assessment of this patient, this patient meets a high complexity level of care. Sepsis secondary to UTI: Leukocytosis + tachycardia + UA on admission. Follow up UCx. Change NS at 75 cc/hr to LR at 50 cc/hr. Judicious use of fluids given EF of 30-35%. Follow BCx. Continue Rocephin 2g IV QD. Acute on chronic anemia: No signs of active bleeding. Transfused 1 PRBC 01/19. Iron studies shows Fe def, started on IV iron 01/20. Obtain stool occult. Repeat CBC in the AM. 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 Continue Flomax 0.4 mg PO BID. Cellcept 250 mg PO BID. Prednisone 20 mg PO QD. Bladder scan PRN. IV hydration as above. Nephrology and Urology on board. Anion gap metabolic acidosis: Likely due to CKD. Increase sodium bicarb from 650 mg PO BID to TID. Change NS to LR as above. RU + BL LE abrasions: Wound cultures as above. Does not appear infected. HTN: Metoprolol 50 mg PO BID. HLD: Lipitor 40 mg PO QD. DM: ISS + Accuchecks ACHS along with hypoglycemic precautions. HFrEF: 3+ LE edema. CXR no acute process. DVT: Eliquis 5 mg PO BID. Resolved: HypoK Continue antibiotics. Cultures pending. Renal function improving. PT and OT consulted. CODE STATUS: FULL CODE. DVT Prophylaxis: Eliquis. GI Prophylaxis: Protonix PO Designated medical POA if patient is not able to make medical decisions for them selves: I have reviewed the following philatelic consultant notes: Urology. I have reviewed the results of the following tests: CBC, BMP, BCx, WCx, UCx. I have ordered the following tests: Iron studies. UCx pending. CBC and BMP in the AM. I have discussed the care of this patient with the following independent historian: RN. I have independently interpreted the following test below: I have discussed the management of this patient with the following physician: Objective - Vital Signs Vital signs: Vital Signs Temp 97.5 F L 01/21/25 07:44 Pulse 64 01/21/25 07:44 Resp 20 01/21/25 07:44 BP 176/93 01/21/25 07:44 Pulse Ox 99 01/21/25 00:43 FiO2 Intake & Output 01/20/25 01/21/25 01/21/25 18:59 06:59 18:59 Intake Total 1320 236 Output Total 950 1000 Balance 370 -1000 236 Weight 85.5 kg Intake: Oral 1320 236 Output: Urine 950 1000 Other: Voiding Method External Catheter - Labs CBC & Chem 7: 01/21/25 06:47 01/21/25 06:47 Labs: Abnormal Lab Results - Last 24 Hours (Table) 01/20/25 01/20/25 01/20/25 Range/Units 12:23 17:29 20:02 WBC (4.50-10.00) 10*3/uL RBC (4.40-5.60) 10*6/uL Hgb (13.0-17.0) g/dL Hct (39.6-50.0) % MCH (27.0-32.0) pg RDW (11.5-14.5) % Sodium (137-145) mmol/L Chloride (98-107) mmol/L Carbon Dioxide (22-30) mmol/L BUN (9-20) mg/dL Creatinine (0.66-1.25) mg/dL Glucose (74-99) mg/dL POC Glucose (mg/dL) 165 H 249 H 271 H (70-110) mg/dL Calcium (8.4-10.2) mg/dL 01/21/25 01/21/25 01/21/25 Range/Units 06:47 06:47 07:51 WBC 10.84 H (4.50-10.00) 10*3/uL RBC 2.75 L (4.40-5.60) 10*6/uL Hgb 7.3 L (13.0-17.0) g/dL Hct 22.5 L (39.6-50.0) % MCH 26.5 L (27.0-32.0) pg RDW 15.6 H (11.5-14.5) % Sodium 134 L (137-145) mmol/L Chloride 109 H (98-107) mmol/L Carbon Dioxide 17 L (22-30) mmol/L BUN 74 H (9-20) mg/dL Creatinine 2.89 H (0.66-1.25) mg/dL Glucose 150 H (74-99) mg/dL POC Glucose (mg/dL) 241 H (70-110) mg/dL Calcium 8.1 L (8.4-10.2) mg/dL Microbiology - Last 24 Hours (Table) 01/19/25 17:52 Urine Culture - Preliminary Urine,Voided Gram Neg Bacilli 01/18/25 16:39 Blood Culture - Preliminary Blood 01/18/25 15:30 Anaerobic Culture - Preliminary Leg - Right 01/18/25 15:32 Anaerobic Culture - Preliminary Arm - Right 01/18/25 15:32 Gram Stain - Preliminary Arm - Right Wound Culture - Preliminary Methicillin resist S. aureus Proteus mirabilis 01/18/25 15:30 Gram Stain - Preliminary Leg - Right Wound Culture - Preliminary Presumptive Staph aureus Pseudomonas aeruginosa Morganella morganii sp sibonii Proteus mirabilis
[2025-01-21 12:19] LABS: Glucose,Whole Blood 157 mg/dL (70-110)
[2025-01-21] MEDS: LACTATED RINGERS 1,000 ML IV SCH (12:28)
--- NOTE | 2025-01-21 12:52 | P.PN ---
Subjective Patient is seen for follow-up for acute kidney injury And chronic kidney disease. Currently maintained on IV fluids. Renal function has improved. Serum creatinine decreased to 2.9 from 3.4 No significant complaints today. Hemoglobin 7.3 today Objective - Vital Signs Vital signs: Vital Signs Temp 97.5 F L 01/21/25 07:44 Pulse 64 01/21/25 07:44 Resp 20 01/21/25 07:44 BP 176/93 01/21/25 07:44 Pulse Ox 99 01/21/25 00:43 FiO2 Intake & Output 01/20/25 01/21/25 01/21/25 18:59 06:59 18:59 Intake Total 1320 236 Output Total 950 1000 800 Balance 370 -6384 -121 Weight 85.5 kg Intake: Oral 1320 236 Output: Urine 950 1000 800 Other: Voiding Method External Catheter - Exam Patient is awake, comfortable, no acute distress. He is tearful Examination of the heart S1 and S2 Examination of the lungs bilateral breath sounds are heard Abdomen is soft nontender Examination of lower extremities shows lacerations right leg which are currently dressed. 1+ edema right leg and no edema in left leg INVENTORY PLANNER exam grossly intact - Labs CBC & Chem 7: 01/21/25 06:47 01/21/25 06:47 Labs: Abnormal Lab Results - Last 24 Hours (Table) 01/20/25 01/20/25 01/21/25 Range/Units 17:29 20:02 06:47 WBC 10.84 H (4.50-10.00) 10*3/uL RBC 2.75 L (4.40-5.60) 10*6/uL Hgb 7.3 L (13.0-17.0) g/dL Hct 22.5 L (39.6-50.0) % MCH 26.5 L (27.0-32.0) pg RDW 15.6 H (11.5-14.5) % Sodium (137-145) mmol/L Chloride (98-107) mmol/L Carbon Dioxide (22-30) mmol/L BUN (9-20) mg/dL Creatinine (0.66-1.25) mg/dL Glucose (74-99) mg/dL POC Glucose (mg/dL) 249 H 271 H (70-110) mg/dL Calcium (8.4-10.2) mg/dL 01/21/25 01/21/25 01/21/25 Range/Units 06:47 07:51 12:17 WBC (4.50-10.00) 10*3/uL RBC (4.40-5.60) 10*6/uL Hgb (13.0-17.0) g/dL Hct (39.6-50.0) % MCH (27.0-32.0) pg RDW (11.5-14.5) % Sodium 134 L (137-145) mmol/L Chloride 109 H (98-107) mmol/L Carbon Dioxide 17 L (22-30) mmol/L BUN 74 H (9-20) mg/dL Creatinine 2.89 H (0.66-1.25) mg/dL Glucose 150 H (74-99) mg/dL POC Glucose (mg/dL) 241 H 157 H (70-110) mg/dL Calcium 8.1 L (8.4-10.2) mg/dL Microbiology - Last 24 Hours (Table) 01/19/25 17:52 Urine Culture - Preliminary Urine,Voided Gram Neg Bacilli 01/18/25 16:39 Blood Culture - Preliminary Blood 01/18/25 15:30 Anaerobic Culture - Preliminary Leg - Right 01/18/25 15:32 Anaerobic Culture - Preliminary Arm - Right 01/18/25 15:32 Gram Stain - Preliminary Arm - Right Wound Culture - Preliminary Methicillin resist S. aureus Proteus mirabilis 01/18/25 15:30 Gram Stain - Preliminary Leg - Right Wound Culture - Preliminary Presumptive Staph aureus Pseudomonas aeruginosa Morganella morganii sp sibonii Proteus mirabilis Assessment and Plan Assessment: 1. Acute kidney injury secondary to severe anemia and underlying infection. ATN, nonoliguric. UA suggestive of UTI. CT scan shows bilateral hydronephrosis but bladder scan showed 172 mL currently maintained on IV fluids. Renal function is improving 2. 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 Status post fall 4. Anemia with no active bleeding noted, hemoglobin 6.3 g/dL. Underlying anemia of chronic disease. Significant iron deficiency with iron saturation of 6.2%. Status post 1 unit packed RBCs 5. Metabolic acidosis maintained on oral sodium bicarb 6. Pyuria rule out UTI Plan: Continue with IV fluids. Agree with changing to LR. Continue IV iron Add Aranesp Continue oral sodium bicarb Continue with antibiotics Continue CellCept and prednisone Repeat labs in a.m. Continue to avoid nephrotoxic agents Continue Flomax
[2025-01-21 13:49] VITALS: BMI 28.6
[2025-01-21] MEDS: DARBEPOETIN ALFA 60 MCG/0.3 ML SYRINGE SQ SCH (14:45)
[2025-01-21 17:09] LABS: Glucose,Whole Blood 199 mg/dL (70-110)
[2025-01-21 20:24] LABS: Glucose,Whole Blood 244 mg/dL (70-110)
[2025-01-22 06:25] LABS: HCT 22.6 % (39.6-50.0); HGB 7.2 g/dL (13.0-17.0); MCH 26.6 pg (27.0-32.0); MCHC 31.9 g/dL (32.0-37.0); MCV 83.4 fL (80.0-97.0); Platelet Count 335 10*3/uL (140-440); RBC 2.71 10*6/uL (4.40-5.60); RDW 15.6 % (11.5-14.5); WBC 8.86 10*3/uL (4.50-10.00)
[2025-01-22 06:43] LABS: African American GFR (CKD) 23 (>60 ml/min/1.73 sqM); Anion Gap 5 mmol/L; Blood Urea Nitrogen 67 mg/dL (9-20); Calcium 8.1 mg/dL (8.4-10.2); Carbon Dioxide 22 mmol/L (22-30); Chloride 109 mmol/L (98-107); Glucose 117 mg/dL (74-99); Non-African American GFR(CKD) 20 (>60 ml/min/1.73 sqM); Potassium 4.1 mmol/L (3.5-5.1); Sodium 136 mmol/L (137-145)
[2025-01-22 06:59] LABS: Glucose,Whole Blood 134 mg/dL (70-110)
--- NOTE | 2025-01-22 10:33 | P.PN ---
Subjective Progress Note Date: 01/22/25 74 year old M with PMH of CKD stage IV, HTN, HLD, DM, HFrEF, DVT presents to the ED for lower abdominal pain. In the ED he underwent extensive evaluation. BP 142/101, HR 101, T 98.6F, RR 18, 99% on RA. CBC, Coag panel, CMP significant for WBC 18.15, RBC 2.86, Hg 7.7, Hct 23.4, Na 133, bicarb 20, BUN 102, Cr 3.28, alb 2.9. Lactic acid 1.7. Lipase 27. Amylase 56. UA large LE with 102 WBCs. EKG sinus tachycardia with PVCs. CXR neg. CT AP bilateral hydronephrosis, bladder wall thickening, multilevel superior endplate compression deformities (seen previously), diverticulosis. Started on Rocephin and admitted for further workup and mangement. 01/19 Patient was seen and examined. Pleasantly confused. Reports no complaints. Denies melena or hematochezia. Daughter at bedside. CBC and CMP significant for WBC 16.17, RBC 2.44, Hg 6.3, Hct 20.8, bicarb 19.1, AG 15.9, BUN 86.7, Cr 3.4, glu 118, Ca 8.1, T. Bili < 0.2, alb 2.5. CRP 18.6. A1c 6.4. Urology consulted, hydro due to chronic outlet obstruction. 01/20 Patient was seen and examined. Confusion improved. Reports no complaints. CBC and BMP significant for WBC 11.66, RBC 2.76, Hg 7.3, Hct 23, Na 134, K 3.3, bicarb 19, BUN 73, Cr 2.99, glu 115, Ca 8. Mag 1.6. BCx prelim neg so far. Iron studies show Fe 12, Ferritin 363. 01/21 Patient was seen and examined. Reports no complaints. CBC and BMP significant for WBC 10.84, RBC 2.75, Hg 7.3, Hct 22.5, Na 134, Cl 109, bicarb 17, BUN 74, Cr 2.89, glu 150, Ca 8.1. Mag 1.7. BCx prelim neg so far. UCx lupe wing GNB. Wound Cx growing MRSA, Proteus, Pseudomonas, Morganella. 01/22 Patient was seen and examined. Doing well. CBC and BMP significant for RBC 2.71, Hg 7.2, Hct 22.6, Na 136, Cl 109, BUN 67, Cr 2.97, glu 117, Ca 8.1. General: non toxic, no distress, appears at stated age Derm: warm, dry, abrasions over the RU + bilateral LE Head: atraumatic, normocephalic, symmetric Eyes: EOMI, no lid lag, anicteric sclera Mouth: no lip lesion, mucus membranes moist Cardiovascular: S1S2 reg, + murmur Lungs: Decreased BS bilateral, no rhonchi, no rales , no accessory muscle use Ext: no gross muscle atrophy, 2-3+ LE edema, no contractures Neuro: no focal neuro deficits Psych: Alert and oriented. Based on my assessment of this patient, this patient meets a high complexity level of care. Sepsis secondary to UTI: Leukocytosis + tachycardia + UA on admission. Follow up UCx. Continue LR at 50 cc/hr. Judicious use of fluids given EF of 30-35%. Continue Rocephin 2g IV QD. Acute on chronic anemia: No signs of active bleeding. Transfused 1 PRBC 01/19. Iron studies shows Fe def, started on IV iron 01/20. Obtain stool occult. Repeat CBC in the AM. 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 Continue Flomax 0.4 mg PO BID. Cellcept 250 mg PO BID. Prednisone 20 mg PO QD. Bladder scan PRN. IV hydration as above. Nephrology and Urology on board. RU + BL LE abrasions: Wound cultures as above. Does not appear infected. Local wound care. HTN: Metoprolol 50 mg PO BID. HLD: Lipitor 40 mg PO QD. DM: ISS + Accuchecks ACHS along with hypoglycemic precautions. HFrEF: 3+ LE edema. CXR no acute process. DVT: Eliquis 5 mg PO BID. Resolved: HypoK, Anion gap metabolic acidosis Continue antibiotics. Cultures pending. Renal function improving. PT and OT consulted yet to work with patient. CODE STATUS: FULL CODE. DVT Prophylaxis: Eliquis. GI Prophylaxis: Protonix PO Designated medical POA if patient is not able to make medical decisions for themselves: I have reviewed the following surgical consultant notes: Nephrology. I have reviewed the results of the following tests: CBC, BMP. I have ordered the following tests: Iron studies. UCx pending. CBC and BMP in the AM. I have discussed the care of this patient with the following independent historian: GENESIS. I have independently interpreted the following test below: I have discussed the management of this patient with the following physician: Objective - Vital Signs Vital signs: Vital Signs Temp 97.5 F L 01/22/25 07:49 Pulse 74 01/22/25 07:49 Resp 16 01/22/25 07:49 BP 179/87 01/22/25 07:49 Pulse Ox 98 01/22/25 07:49 FiO2 Intake & Output 01/21/25 01/22/25 01/22/25 18:59 06:59 18:59 Intake Total 2511 Output Total 1500 1400 Balance 1011 -1400 Weight 85.5 kg 90 kg Intake: Intake, IV Titration 775 Amount Lactated Ringers 1,000 ml 350 @ 50 mls/hr IV .Q20H LUCIANO Rx#:[id number] Sodium Chloride 0.9% 1, 375 000 ml @ 75 mls/hr IV . [id number] LUCIANO Rx#:[id number] cefTRIAXone 2 gm In 50 Sodium Chloride 0.9% 50 ml @ 100 mls/hr IVPB Q24HR LUCIANO Rx#:[id number] Oral 1736 Output: Urine 1500 1400 Other: Voiding Method External Catheter External Catheter External Catheter # Bowel Movements 1 - Labs CBC & Chem 7: 01/22/25 05:52 01/22/25 05:48 Labs: Abnormal Lab Results - Last 24 Hours (Table) 01/21/25 01/21/25 01/21/25 Range/Units 12:17 17:05 20:22 RBC (4.40-5.60) 10*6/uL Hgb (13.0-17.0) g/dL Hct (39.6-50.0) % MCH (27.0-32.0) pg MCHC (32.0-37.0) g/dL RDW (11.5-14.5) % Sodium (137-145) mmol/L Chloride (98-107) mmol/L BUN (9-20) mg/dL Creatinine (0.66-1.25) mg/dL Glucose (74-99) mg/dL POC Glucose (mg/dL) 157 H 199 H 244 H (70-110) mg/dL Calcium (8.4-10.2) mg/dL 01/22/25 01/22/25 01/22/25 Range/Units 05:48 05:52 06:58 RBC 2.71 L (4.40-5.60) 10*6/uL Hgb 7.2 L (13.0-17.0) g/dL Hct 22.6 L (39.6-50.0) % MCH 26.6 L (27.0-32.0) pg MCHC 31.9 L (32.0-37.0) g/dL RDW 15.6 H (11.5-14.5) % Sodium 136 L (137-145) mmol/L Chloride 109 H (98-107) mmol/L BUN 67 H (9-20) mg/dL Creatinine 2.97 H (0.66-1.25) mg/dL Glucose 117 H (74-99) mg/dL POC Glucose (mg/dL) 134 H (70-110) mg/dL Calcium 8.1 L (8.4-10.2) mg/dL Microbiology - Last 24 Hours (Table) 01/18/25 16:39 Blood Culture - Preliminary Blood 01/18/25 15:32 Gram Stain - Preliminary Arm - Right Wound Culture - Preliminary Methicillin resist S. aureus Proteus mirabilis Pseudomonas aeruginosa 01/18/25 15:30 Gram Stain - Final Leg - Right Wound Culture - Final Methicillin resist S. aureus Pseudomonas aeruginosa Morganella morganii sp sibonii Proteus mirabilis 01/19/25 17:52 Urine Culture - Preliminary Urine,Voided Gram Neg Bacilli
[2025-01-22 12:25] LABS: Glucose,Whole Blood 230 mg/dL (70-110)
[2025-01-22 17:16] LABS: Glucose,Whole Blood 232 mg/dL (70-110)
--- NOTE | 2025-01-22 18:12 | P.PN ---
Subjective Patient is seen for follow-up for acute kidney injury and chronic kidney disease. Status post IV fluids Renal function is slightly improved. Serum creatinine staying at 2.9. No significant complaints today. Hemoglobin 7.3 today Objective - Vital Signs Vital signs: Vital Signs Temp 97.5 F L 01/22/25 13:53 Pulse 75 01/22/25 17:50 Resp 16 01/22/25 13:53 BP 186/76 01/22/25 17:50 Pulse Ox 99 01/22/25 13:53 FiO2 Intake & Output 01/21/25 01/22/25 01/22/25 18:59 06:59 18:59 Intake Total 2511 Output Total 1500 1400 Balance 1011 -1400 Weight 85.5 kg 90 kg Intake: Intake, IV Titration 775 Amount Lactated Ringers 1,000 ml 350 @ 50 mls/hr IV .Q20H LUCIANO Rx#:[id number] Sodium Chloride 0.9% 1, 375 000 ml @ 75 mls/hr IV . [id number] LUCIANO Rx#:[id number] cefTRIAXone 2 gm In 50 Sodium Chloride 0.9% 50 ml @ 100 mls/hr IVPB Q24HR LUCIANO Rx#:[id number] Oral 1736 Output: Urine 1500 1400 Other: Voiding Method External Catheter External Catheter External Catheter # Bowel Movements 1 - Exam Patient is awake, comfortable, no acute distress. He is tearful Examination of the heart S1 and S2 Examination of the lungs bilateral breath sounds are heard Abdomen is soft nontender Examination of lower extremities shows lacerations right leg which are currently dressed. 1+ edema right leg and no edema in left leg GROUNDS/MAINTENANCE SPECIALIST exam grossly intact - Labs CBC & Chem 7: 01/22/25 05:52 01/22/25 05:48 Labs: Abnormal Lab Results - Last 24 Hours (Table) 01/21/25 01/22/25 01/22/25 Range/Units 20:22 05:48 05:52 RBC 2.71 L (4.40-5.60) 10*6/uL Hgb 7.2 L (13.0-17.0) g/dL Hct 22.6 L (39.6-50.0) % MCH 26.6 L (27.0-32.0) pg MCHC 31.9 L (32.0-37.0) g/dL RDW 15.6 H (11.5-14.5) % Sodium 136 L (137-145) mmol/L Chloride 109 H (98-107) mmol/L BUN 67 H (9-20) mg/dL Creatinine 2.97 H (0.66-1.25) mg/dL Glucose 117 H (74-99) mg/dL POC Glucose (mg/dL) 244 H (70-110) mg/dL Calcium 8.1 L (8.4-10.2) mg/dL 01/22/25 01/22/25 01/22/25 Range/Units 06:58 12:23 17:15 RBC (4.40-5.60) 10*6/uL Hgb (13.0-17.0) g/dL Hct (39.6-50.0) % MCH (27.0-32.0) pg MCHC (32.0-37.0) g/dL RDW (11.5-14.5) % Sodium (137-145) mmol/L Chloride (98-107) mmol/L BUN (9-20) mg/dL Creatinine (0.66-1.25) mg/dL Glucose (74-99) mg/dL POC Glucose (mg/dL) 134 H 230 H 232 H (70-110) mg/dL Calcium (8.4-10.2) mg/dL Microbiology - Last 24 Hours (Table) 01/18/25 15:32 Gram Stain - Final Arm - Right Wound Culture - Final Methicillin resist S. aureus Proteus mirabilis Pseudomonas aeruginosa 01/19/25 17:52 Urine Culture - Final Urine,Voided Pseudomonas aeruginosa 01/18/25 16:39 Blood Culture - Preliminary Blood 01/18/25 15:30 Gram Stain - Final Leg - Right Wound Culture - Final Methicillin resist S. aureus Pseudomonas aeruginosa Morganella morganii sp sibonii Proteus mirabilis Assessment and Plan Assessment: 1. Acute kidney injury secondary to severe anemia and underlying infection. ATN, nonoliguric. UA suggestive of UTI. CT scan shows bilateral hydronephrosis but bladder scan showed 172 mL currently maintained on IV fluids. Renal fun ction is slightly improved since admission. 2. 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 Status post fall 4. Anemia with no active bleeding noted, hemoglobin 6.3 g/dL. Underlying anemia of chronic disease. Significant iron deficiency with iron saturation of 6.2%. Status post 1 unit packed RBCs 5. Metabolic acidosis maintained on oral sodium bicarb 6. Pyuria rule out UTI 7. Chronic incomplete bladder emptying not being followed by urology and maintained on tamsulosin. Plan: DC IV fluids Continue IV iron Continue Aranesp Continue oral sodium bicarb Continue with antibiotics Continue CellCept and prednisone Repeat labs in a.m. Continue to avoid nephrotoxic agents Continue Flomax Follow-up as outpatient in 1 week.
[2025-01-22 20:03] LABS: Glucose,Whole Blood 228 mg/dL (70-110)
[2025-01-22] MEDS: CEFEPIME 1 GM in SODIUM CHLORIDE 0.9% 50 ML IVPB SCH (21:38)
[2025-01-23 07:18] LABS: Glucose,Whole Blood 166 mg/dL (70-110)
--- NOTE | 2025-01-23 11:30 | P.PN ---
Subjective Progress Note Date: 01/23/25 74 year old M with PMH of CKD stage IV, HTN, HLD, DM, HFrEF, DVT presents to the ED for lower abdominal pain. In the ED he underwent extensive evaluation. BP 142/101, HR 101, T 98.6F, RR 18, 99% on RA. CBC, Coag panel, CMP significant for WBC 18.15, RBC 2.86, Hg 7.7, Hct 23.4, Na 133, bicarb 20, BUN 102, Cr 3.28, alb 2.9. Lactic acid 1.7. Lipase 27. Amylase 56. UA large LE with 102 WBCs. EKG sinus tachycardia with PVCs. CXR neg. CT AP bilateral hydronephrosis, bladder wall thickening, multilevel superior endplate compression deformities (seen previously), diverticulosis. Started on Rocephin and admitted for further workup and mangement. 01/19 Patient was seen and examined. Pleasantly confused. Reports no complaints. Denies melena or hematochezia. Daughter at bedside. CBC and CMP significant for WBC 16.17, RBC 2.44, Hg 6.3, Hct 20.8, bicarb 19.1, AG 15.9, BUN 86.7, Cr 3.4, glu 118, Ca 8.1, T. Bili < 0.2, alb 2.5. CRP 18.6. A1c 6.4. Urology consulted, hydro due to chronic outlet obstruction. 01/20 Patient was seen and examined. Confusion improved. Reports no complaints. CBC and BMP significant for WBC 11.66, RBC 2.76, Hg 7.3, Hct 23, Na 134, K 3.3, bicarb 19, BUN 73, Cr 2.99, glu 115, Ca 8. Mag 1.6. BCx prelim neg so far. Iron studies show Fe 12, Ferritin 363. 01/21 Patient was seen and examined. Reports no complaints. CBC and BMP significant for WBC 10.84, RBC 2.75, Hg 7.3, Hct 22.5, Na 134, Cl 109, bicarb 17, BUN 74, Cr 2.89, glu 150, Ca 8.1. Mag 1.7. BCx prelim neg so far. UCx lupe wing GNB. Wound Cx growing MRSA, Proteus, Pseudomonas, Morganella. 01/22 Patient was seen and examined. Doing well. CBC and BMP significant for RBC 2.71, Hg 7.2, Hct 22.6, Na 136, Cl 109, BUN 67, Cr 2.97, glu 117, Ca 8.1. 01/23 Patient was seen and examined. Able to work with PT and OT yesterday, rec ommending SNF. Patient appears hesitant about SNF wanting to discuss with his significant other. UCx growing Pseudomonas so Rocephin was switched to Cefepime yesterday. No new labs done today. General: non toxic, no distress, appears at stated age Derm: warm, dry, abrasions over the RU + bilateral LE Head: atraumatic, normocephalic, symmetric Eyes: EOMI, no lid lag, anicteric sclera Mouth: no lip lesion, mucus membranes moist Cardiovascular: S1S2 reg, + murmur Lungs: Decreased BS bilateral, no rhonchi, no rales , no accessory muscle use Ext: no gross muscle atrophy, 2+ LE edema, no contractures Neuro: no focal neuro deficits Psych: Alert and oriented. Based on my assessment of this patient, this patient meets a high complexity level of care. Sepsis secondary to UTI: Leukocytosis + tachycardia + UA on admission. UCx Pseudomonas. IVF discontinued yesterday by Nephro. Judicious use of fluids given EF of 30-35%. Cefepime 1g IV BID (D2). Acute on chronic anemia: No signs of active bleeding. Transfused 1 PRBC 01/19. Iron studies shows Fe def. Start ferric gluconate 125 mg IV QD. Aranesp 60 mcg SQ weekly. Obtain stool occult. Repeat CBC in the AM. 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 Continue Flomax 0.4 mg PO BID. Cellcept 250 mg PO BID. Prednisone 20 mg PO QD. Bladder scan PRN. IV hydration as above. Nephrology and Urology on board. RU + BL LE abrasions: Wound cultures as above. Does not appear infected. Local wound care. HTN: Metoprolol 50 mg PO BID. HLD: Lipitor 40 mg PO QD. DM: ISS + Accuchecks ACHS along with hypoglycemic precautions. HFrEF: 3+ LE edema. CXR no acute process. DVT: Eliquis 5 mg PO BID. Resolved: HypoK, Anion gap metabolic acidosis Continue antibiotics. Renal function stable. Patient unsafe to go home but relu ctant to go to SNF. CODE STATUS: FULL CODE. DVT Prophylaxis: Eliquis. GI Prophylaxis: Protonix PO Designated medical POA if patient is not able to make medical decisions for themselves: I have reviewed the following cardiology clinical consultant notes: Nephrology. I have reviewed the results of the following tests: UCx. I have ordered the following tests: CBC and BMP in the AM. I have discussed the care of this patient with the following independent historian: RN. at bedside. I have independently interpreted the following test below: I have discussed the management of this patient with the following physician: Objective - Vital Signs Vital signs: Vital Signs Temp 97.5 F L 01/23/25 08:00 Pulse 66 01/23/25 08:00 Resp 16 01/23/25 08:00 BP 164/91 01/23/25 08:00 Pulse Ox 99 01/23/25 08:00 FiO2 Intake & Output 01/22/25 01/23/25 01/23/25 18:59 06:59 18:59 Intake Total 1560 240 Output Total 800 350 Balance 760 -110 Weight 52.5 kg Intake: Oral 1560 240 Output: Urine 800 350 Other: Voiding Method External Catheter External Catheter External Catheter # Voids 1 # Bowel Movements 1 - Labs CBC & Chem 7: 01/22/25 05:52 01/22/25 05:48 Labs: Abnormal Lab Results - Last 24 Hours (Table) 01/22/25 01/22/25 01/22/25 Range/Units 12:23 17:15 20:03 POC Glucose (mg/dL) 230 H 232 H 228 H (70-110) mg/dL 01/23/25 Range/Units 07:17 POC Glucose (mg/dL) 166 H (70-110) mg/dL Microbiology - Last 24 Hours (Table) 01/18/25 15:30 Anaerobic Culture - Final Leg - Right 01/18/25 15:32 Anaerobic Culture - Final Arm - Right 01/18/25 15:32 Gram Stain - Final Arm - Right Wound Culture - Final Methicillin resist S. aureus Proteus mirabilis Pseudomonas aeruginosa 01/19/25 17:52 Urine Culture - Final Urine,Voided Pseudomonas aeruginosa
--- NOTE | 2025-01-23 11:51 | P.PN ---
Subjective Progress Note Date: 01/23/25 Patient is seen for follow-up for acute kidney injury and chronic kidney disease. Status post IV fluids Renal function is slightly improved. Serum creatinine staying at 2.9. no labs this am No significant complaints today. Objective - Vital Signs Vital signs: Vital Signs Temp 97.5 F L 01/23/25 08:00 Pulse 66 01/23/25 08:00 Resp 16 01/23/25 08:00 BP 164/91 01/23/25 08:00 Pulse Ox 99 01/23/25 08:00 FiO2 Intake & Output 01/22/25 01/23/25 01/23/25 18:59 06:59 18:59 Intake Total 1560 240 Output Total 800 350 Balance 760 -110 Weight 52.5 kg Intake: Oral 1560 240 Output: Urine 800 350 Other: Voiding Method External Catheter External Catheter External Catheter # Voids 1 # Bowel Movements 1 - Exam Patient is awake, comfortable, no acute distress. He is tearful Examination of the heart S1 and S2 Examination of the lungs bilateral breath sounds are heard Abdomen is soft nontender Examination of lower extremities shows lacerations right leg which are currently dressed. 1+ edema right leg and no edema in left leg NURSE HEAD exam grossly intact - Labs CBC & Chem 7: 01/22/25 05:52 01/22/25 05:48 Labs: Abnormal Lab Results - Last 24 Hours (Table) 01/22/25 01/22/25 01/22/25 Range/Units 12:23 17:15 20:03 POC Glucose (mg/dL) 230 H 232 H 228 H (70-110) mg/dL 01/23/25 Range/Units 07:17 POC Glucose (mg/dL) 166 H (70-110) mg/dL Microbiology - Last 24 Hours (Table) 01/18/25 15:30 Anaerobic Culture - Final Leg - Right 01/18/25 15:32 Anaerobic Culture - Final Arm - Right 01/18/25 15:32 Gram Stain - Final Arm - Right Wound Culture - Final Methicillin resist S. aureus Proteus mirabilis Pseudomonas aeruginosa 01/19/25 17:52 Urine Culture - Final Urine,Voided Pseudomonas aeruginosa Assessment and Plan Assessment: 1. Acute kidney injury secondary to severe anemia and underlying infection. ATN, nonoliguric. UA suggestive of UTI. CT scan shows bilateral hydronephrosis but bladder scan showed 172 mL currently maintained on IV fluids. Renal function is slightly improved since admission. 2. 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 Status post fall 4. Anemia with no active bleeding noted, hemoglobin 6.3 g/dL. Underlying anemia of chronic disease. Significant iron deficiency with iron saturation of 6.2%. Status post 1 unit packed RBCs 5. Metabolic acidosis maintained on oral sodium bicarb 6. Pyuria rule out UTI 7. Chronic incomplete bladder emptying not being followed by urology and maintained on tamsulosin. Plan: Continue IV iron and Aranesp Continue oral sodium bicarb Continue with antibiotics Continue CellCept and prednisone Repeat labs in a.m. Continue to avoid nephrotoxic agents Continue Flomax Follow-up as outpatient in 1 week.
[2025-01-23 12:06] LABS: Glucose,Whole Blood 214 mg/dL (70-110)
[2025-01-23] MEDS: SODIUM FERRIC GLUCONAT-SUCROSE 125 MG in SODIUM CHLORIDE 0.9% 100 ML IVPB SCH (12:20)
[2025-01-23 17:08] LABS: Glucose,Whole Blood 250 mg/dL (70-110)
[2025-01-23 20:19] LABS: Glucose,Whole Blood 258 mg/dL (70-110)
[2025-01-24 06:35] LABS: African American GFR (CKD) 23 (>60 ml/min/1.73 sqM); Anion Gap 8 mmol/L; Blood Urea Nitrogen 80 mg/dL (9-20); Calcium 8.4 mg/dL (8.4-10.2); Carbon Dioxide 20 mmol/L (22-30); Chloride 107 mmol/L (98-107); Glucose 128 mg/dL (74-99); Non-African American GFR(CKD) 20 (>60 ml/min/1.73 sqM); Potassium 4.0 mmol/L (3.5-5.1); Sodium 135 mmol/L (137-145)
[2025-01-24 07:13] LABS: Glucose,Whole Blood 142 mg/dL (70-110)
[2025-01-24 07:14] LABS: HCT 23.7 % (39.6-50.0); HGB 7.5 g/dL (13.0-17.0); MCH 26.2 pg (27.0-32.0); MCHC 31.6 g/dL (32.0-37.0); MCV 82.9 fL (80.0-97.0); Platelet Count 341 10*3/uL (140-440); RBC 2.86 10*6/uL (4.40-5.60); RDW 15.8 % (11.5-14.5); WBC 12.84 10*3/uL (4.50-10.00)
[2025-01-24] MEDS: MORPHINE SULFATE 4 MG/ML SYRINGE IV PRN (09:30)
--- NOTE | 2025-01-24 11:13 | P.PN ---
Subjective Progress Note Date: 01/24/25 Patient is seen for follow-up for acute kidney injury and chronic kidney disease. she denied any new complaints. tolerating PO intake. Renal function is stable at 2.9. s/p IVF making urine, stable vitals. Objective - Vital Signs Vital signs: Vital Signs Temp 98.0 F 01/24/25 07:59 Pulse 78 01/24/25 07:59 Resp 16 01/24/25 07:59 BP 154/75 01/24/25 07:59 Pulse Ox 98 01/24/25 07:59 FiO2 Intake & Output 01/23/25 01/24/25 01/24/25 18:59 06:59 18:59 Intake Total 150 250 Balance 150 250 Weight 53.8 kg Intake: Intake, IV Titration 150 Amount Cefepime 1 gm In Sodium 50 Chloride 0.9% 50 ml @ 12. 5 mls/hr IVPB Q12HR [facility] Rx#:[id number] Sodium Ferric Gluconat- 100 Sucrose 125 mg In Sodium Chloride 0.9% 100 ml @ 100 mls/hr IVPB DAILY [facility] Rx#:[id number] Oral 250 Other: Voiding Method External Catheter External Catheter # Voids 3 - Exam Patient is awake, comfortable, no acute distress. Examination of the heart S1 and S2 Examination of the lungs bilateral breath sounds are heard Abdomen is soft nontender Examination of lower extremities shows lacerations right leg which are currently dressed. 1+ edema right leg and no edema in left leg ENVIRONMENTAL MANAGER exam grossly intact - Labs CBC & Chem 7: 01/24/25 06:02 01/24/25 06:02 Labs: Abnormal Lab Results - Last 24 Hours (Table) 01/23/25 01/23/25 01/23/25 Range/Units 12:04 17:06 20:16 WBC (4.50-10.00) 10*3/uL RBC (4.40-5.60) 10*6/uL Hgb (13.0-17.0) g/dL Hct (39.6-50.0) % MCH (27.0-32.0) pg MCHC (32.0-37.0) g/dL RDW (11.5-14.5) % Sodium (137-145) mmol/L Carbon Dioxide (22-30) mmol/L BUN (9-20) mg/dL Creatinine (0.66-1.25) mg/dL Glucose (74-99) mg/dL POC Glucose (mg/dL) 214 H 250 H 258 H (70-110) mg/dL 01/24/25 01/24/25 01/24/25 Range/Units 06:02 06:02 07:12 WBC 12.84 H (4.50-10.00) 10*3/uL RBC 2.86 L (4.40-5.60) 10*6/uL Hgb 7.5 L (13.0-17.0) g/dL Hct 23.7 L (39.6-50.0) % MCH 26.2 L (27.0-32.0) pg MCHC 31.6 L (32.0-37.0) g/dL RDW 15.8 H (11.5-14.5) % Sodium 135 L (137-145) mmol/L Carbon Dioxide 20 L (22-30) mmol/L BUN 80 H (9-20) mg/dL Creatinine 2.96 H (0.66-1.25) mg/dL Glucose 128 H (74-99) mg/dL POC Glucose (mg/dL) 142 H (70-110) mg/dL Microbiology - Last 24 Hours (Table) 01/18/25 16:39 Blood Culture - Final Blood Assessment and Plan Assessment: 1. Acute kidney injury secondary to severe anemia and underlying infection. ATN, nonoliguric. UA suggestive of UTI. CT scan shows bilateral hydronephrosis but bladder scan showed 172 mL currently maintained on IV fluids. Renal function is slightly improved since admission. 2. 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 Status post fall 4. Anemia with no active bleeding noted, hemoglobin 6.3 g/dL. Underlying anemia of chronic disease. Significant iron deficiency with iron saturation of 6.2%. Status post 1 unit packed RBCs 5. Metabolic acidosis maintained on oral sodium bicarb 6. Pyuria rule out UTI 7. Chronic incomplete bladder emptying not being followed by urology and maintained on tamsulosin. Plan: Continue IV iron and Aranesp Continue oral sodium bicarb Continue with antibiotics Continue CellCept and prednisone Repeat labs in a.m. Continue to avoid nephrotoxic agents Continue Flomax Follow-up as outpatient in 1 week.
[2025-01-24 11:30] LABS: Glucose,Whole Blood 151 mg/dL (70-110)
--- NOTE | 2025-01-24 11:41 | P.PN ---
Subjective Progress Note Date: 01/24/25 74 year old M with PMH of CKD stage IV, HTN, HLD, DM, HFrEF, DVT presents to the ED for lower abdominal pain. In the ED he underwent extensive evaluation. BP 142/101, HR 101, T 98.6F, RR 18, 99% on RA. CBC, Coag panel, CMP significant for WBC 18.15, RBC 2.86, Hg 7.7, Hct 23.4, Na 133, bicarb 20, BUN 102, Cr 3.28, alb 2.9. Lactic acid 1.7. Lipase 27. Amylase 56. UA large LE with 102 WBCs. EKG sinus tachycardia with PVCs. CXR neg. CT AP bilateral hydronephrosis, bladder wall thickening, multilevel superior endplate compression deformities (seen previously), diverticulosis. Started on Rocephin and admitted for further workup and mangement. 01/19 Patient was seen and examined. Pleasantly confused. Reports no complaints. Denies melena or hematochezia. Daughter at bedside. CBC and CMP significant for WBC 16.17, RBC 2.44, Hg 6.3, Hct 20.8, bicarb 19.1, AG 15.9, BUN 86.7, Cr 3.4, glu 118, Ca 8.1, T. Bili < 0.2, alb 2.5. CRP 18.6. A1c 6.4. Urology consulted, hydro due to chronic outlet obstruction. 01/20 Patient was seen and examined. Confusion improved. Reports no complaints. CBC and BMP significant for WBC 11.66, RBC 2.76, Hg 7.3, Hct 23, Na 134, K 3.3, bicarb 19, BUN 73, Cr 2.99, glu 115, Ca 8. Mag 1.6. BCx prelim neg so far. Iron studies show Fe 12, Ferritin 363. 01/21 Patient was seen and examined. Reports no complaints. CBC and BMP significant for WBC 10.84, RBC 2.75, Hg 7.3, Hct 22.5, Na 134, Cl 109, bicarb 17, BUN 74, Cr 2.89, glu 150, Ca 8.1. Mag 1.7. BCx prelim neg so far. UCx lupe wing GNB. Wound Cx growing MRSA, Proteus, Pseudomonas, Morganella. 01/22 Patient was seen and examined. Doing well. CBC and BMP significant for RBC 2.71, Hg 7.2, Hct 22.6, Na 136, Cl 109, BUN 67, Cr 2.97, glu 117, Ca 8.1. 01/23 Patient was seen and examined. Able to work with PT and OT yesterday, rec ommending SNF. Patient appears hesitant about SNF wanting to discuss with his significant other. UCx growing Pseudomonas so Rocephin was switched to Cefepime yesterday. No new labs done today. 01/24 Patient was seen and examined. Sleeping comfortably. Hopeful plans for SNF tomorrow. UCx growing Pseudomonas, maintained on Cefepime. CBC and BMP significant for WBC 12.84, RBC 2.86, Hg 7.5, Hct 23.7, Na 135, bicarb 20, BUN 80, Cr 2.96, glu 128. General: non toxic, no distress, appears at stated age Derm: warm, dry, abrasions over the RU + bilateral LE Head: atraumatic, normocephalic, symmetric Eyes: EOMI, no lid lag, anicteric sclera Mouth: no lip lesion, mucus membranes moist Cardiovascular: S1S2 reg, + murmur Lungs: Decreased BS bilateral, no rhonchi, no rales , no accessory muscle use Ext: no gross muscle atrophy, 2+ LE edema, no contractures Neuro: no focal neuro deficits Psych: Alert and oriented. Based on my assessment of this patient, this patient meets a high complexity level of care. Sepsis secondary to UTI: Leukocytosis + tachycardia + UA on admission. UCx Pseudomonas. IVF discontinued 01/22. Judicious use of fluids given EF of 30-35%. Cefepime 1g IV BID (D2). Acute on chronic anemia: No signs of active bleeding. Transfused 1 PRBC 01/19. Iron studies shows Fe def. Start ferric gluconate 125 mg IV QD. Aranesp 60 mcg SQ weekly. Obtain stool occult. 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 Continue Flomax 0.4 mg PO BID. Cellcept 250 mg PO BID. Prednisone 20 mg PO QD. Bladder scan PRN. IV hydration as above. Nephrology and Urology on board. RU + BL LE abrasions: Wound cultures as above. Does not appear infected. Local wound care. HTN: Metoprolol 50 mg PO BID. HLD: Lipitor 40 mg PO QD. DM: ISS + Accuchecks ACHS along with hypoglycemic precautions. HFrEF: 3+ LE edema. CXR no acute process. DVT: Eliquis 5 mg PO BID. Resolved: HypoK, Anion gap metabolic acidosis Continue antibiotics. Renal function stable. Patient unsafe to go home but reluctant to go to SNF. CODE STATUS: FULL CODE. DVT Prophylaxis: Eliquis. GI Prophylaxis: Protonix PO Designated medical POA if patient is not able to make medical decisions for themselves: I have reviewed the following healthcare consultant notes: Nephrology. I have reviewed the results of the following tests: CBC, BMP. I have ordered the following tests: I have discussed the care of this patient with the following independent historian: I have independently interpreted the following test below: I have discussed the management of this patient with the following physician: Objective - Vital Signs Vital signs: Vital Signs Temp 98.0 F 01/24/25 07:59 Pulse 78 01/24/25 07:59 Resp 16 01/24/25 07:59 BP 154/75 01/24/25 07:59 Pulse Ox 98 01/24/25 07:59 FiO2 Intake & Output 01/23/25 01/24/25 01/24/25 18:59 06:59 18:59 Intake Total 150 250 Balance 150 250 Weight 53.8 kg Intake: Intake, IV Titration 150 Amount Cefepime 1 gm In Sodium 50 Chloride 0.9% 50 ml @ 12. 5 mls/hr IVPB Q12HR [facility] Rx#:[id number] Sodium Ferric Gluconat- 100 Sucrose 125 mg In Sodium Chloride 0.9% 100 ml @ 100 mls/hr IVPB DAILY [facility] Rx#:[id number] Oral 250 Other: Voiding Method External Catheter External Catheter # Voids 3 - Labs CBC & Chem 7: 01/24/25 06:02 01/24/25 06:02 Labs: Abnormal Lab Results - Last 24 Hours (Table) 01/23/25 01/23/25 01/23/25 Range/Units 12:04 17:06 20:16 WBC (4.50-10.00) 10*3/uL RBC (4.40-5.60) 10*6/uL Hgb (13.0-17.0) g/dL Hct (39.6-50.0) % MCH (27.0-32.0) pg MCHC (32.0-37.0) g/dL RDW (11.5-14.5) % Sodium (137-145) mmol/L Carbon Dioxide (22-30) mmol/L BUN (9-20) mg/dL Creatinine (0.66-1.25) mg/dL Glucose (74-99) mg/dL POC Glucose (mg/dL) 214 H 250 H 258 H (70-110) mg/dL 01/24/25 01/24/25 01/24/25 Range/Units 06:02 06:02 07:12 WBC 12.84 H (4.50-10.00) 10*3/uL RBC 2.86 L (4.40-5.60) 10*6/uL Hgb 7.5 L (13.0-17.0) g/dL Hct 23.7 L (39.6-50.0) % MCH 26.2 L (27.0-32.0) pg MCHC 31.6 L (32.0-37.0) g/dL RDW 15.8 H (11.5-14.5) % Sodium 135 L (137-145) mmol/L Carbon Dioxide 20 L (22-30) mmol/L BUN 80 H (9-20) mg/dL Creatinine 2.96 H (0.66-1.25) mg/dL Glucose 128 H (74-99) mg/dL POC Glucose (mg/dL) 142 H (70-110) mg/dL 01/24/25 Range/Units 11:29 WBC (4.50-10.00) 10*3/uL RBC (4.40-5.60) 10*6/uL Hgb (13.0-17.0) g/dL Hct (39.6-50.0) % MCH (27.0-32.0) pg MCHC (32.0-37.0) g/dL RDW (11.5-14.5) % Sodium (137-145) mmol/L Carbon Dioxide (22-30) mmol/L BUN (9-20) mg/dL Creatinine (0.66-1.25) mg/dL Glucose (74-99) mg/dL POC Glucose (mg/dL) 151 H (70-110) mg/dL Microbiology - Last 24 Hours (Table) 01/18/25 16:39 Blood Culture - Final Blood
[2025-01-24 16:51] LABS: Glucose,Whole Blood 238 mg/dL (70-110)
[2025-01-24 20:19] LABS: Glucose,Whole Blood 266 mg/dL (70-110)
[2025-01-25 07:04] LABS: Glucose,Whole Blood 150 mg/dL (70-110)
[2025-01-25 12:12] LABS: Glucose,Whole Blood 283 mg/dL (70-110)
--- NOTE | 2025-01-25 12:31 | P.PN ---
Subjective Progress Note Date: 01/25/25 74 year old M with PMH of CKD stage IV, HTN, HLD, DM, HFrEF, DVT presents to the ED for lower abdominal pain. In the ED he underwent extensive evaluation. BP 142/101, HR 101, T 98.6F, RR 18, 99% on RA. CBC, Coag panel, CMP significant for WBC 18.15, RBC 2.86, Hg 7.7, Hct 23.4, Na 133, bicarb 20, BUN 102, Cr 3.28, alb 2.9. Lactic acid 1.7. Lipase 27. Amylase 56. UA large LE with 102 WBCs. EKG sinus tachycardia with PVCs. CXR neg. CT AP bilateral hydronephrosis, bladder wall thickening, multilevel superior endplate compression deformities (seen previously), diverticulosis. Started on Rocephin and admitted for further workup and mangement. 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 Renal function improved. Initially started on Rocephin for treatment of UTI. UCx grew Pseudomonas and he was switched to Cefepime on 01/22. Wound Cx growing MRSA, Proteus, Pseudomonas, Morganella though does not look infected. 01/25 Patient was seen and examined. No complaints. UCx growing Pseudomonas, maintained on Cefepime. No new labs done today. General: non toxic, no distress, appears at stated age Derm: warm, dry, abrasions over the RU + bilateral LE Head: atraumatic, normocephalic, symmetric Eyes: EOMI, no lid lag, anicteric sclera Mouth: no lip lesion, mucus membranes moist Cardiovascular: S1S2 reg, + murmur Lungs: Decreased BS bilateral, no rhonchi, no rales , no accessory muscle use Ext: no gross muscle atrophy, 2+ LE edema, no contractures Neuro: no focal neuro deficits Psych: Alert and oriented. Based on my assessment of this patient, this patient meets a high complexity level of care. Sepsis secondary to UTI: Leukocytosis + tachycardia + UA on admission. UCx Pseudomonas. IVF discontinued 01/22. Judicious use of fluids given EF of 30-35%. Cefepime 1g IV BID (D3). Acute on chronic anemia: No signs of active bleeding. Transfused 1 PRBC 01/19. Iron studies shows Fe def. Status post 3 days of ferric gluconate 125 mg IV QD. Aranesp 60 mcg SQ weekly. 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 Continue Flomax 0.4 mg PO BID. Cellcept 250 mg PO BID. Prednisone 20 mg PO QD. Bladder scan PRN. IV hydration as above. Nephrology and Urology on board. RU + BL LE abrasions: Wound cultures as above. Does not appear infected. Local wound care. HTN: Metoprolol 50 mg PO BID. HLD: Lipitor 40 mg PO QD. DM: ISS + Accuchecks ACHS along with hypoglycemic precautions. HFrEF: 3+ LE edema. CXR no acute process. DVT: Eliquis 5 mg PO BID. Resolved: HypoK, Anion gap metabolic acidosis Medically stable. Patient unsafe to go home but reluctant to go to SNF. Case management on board, pending insurance auth for SNF. CODE STATUS: FULL CODE. DVT Prophylaxis: Eliquis. GI Prophylaxis: Protonix PO Designated medical POA if patient is not able to make medical decisions for themselves: I have reviewed the following senior solutions workflow consultant notes: I have reviewed the results of the following tests: I have ordered the following tests: I have discussed the care of this patient with the following independent historian: RN. Case management. I have independently interpreted the following test below: I have discussed the management of this patient with the following physician: Objective - Vital Signs Vital signs: Vital Signs Temp 97.4 F L 01/25/25 06:58 Pulse 68 01/25/25 06:58 Resp 20 01/25/25 06:58 BP 174/85 01/25/25 06:58 Pulse Ox 99 01/25/25 06:58 FiO2 Intake & Output 01/24/25 01/25/25 01/25/25 18:59 06:59 18:59 Intake Total 475 480 Output Total 500 Balance 475 -20 Weight 75 kg Intake: Oral 475 480 Output: Urine 500 Other: Voiding Method External Catheter External Catheter External Catheter # Voids 3 - Labs CBC & Chem 7: 01/24/25 06:02 01/24/25 06:02 Labs: Abnormal Lab Results - Last 24 Hours (Table) 01/24/25 01/24/25 01/25/25 Range/Units 16:49 20:17 07:01 POC Glucose (mg/dL) 238 H 266 H 150 H (70-110) mg/dL 01/25/25 Range/Units 12:11 POC Glucose (mg/dL) 283 H (70-110) mg/dL
[2025-01-25 17:10] LABS: Glucose,Whole Blood 267 mg/dL (70-110)
[2025-01-25 20:01] LABS: Glucose,Whole Blood 224 mg/dL (70-110)
--- NOTE | 2025-01-25 21:28 | P.PN ---
Subjective Patient is seen for follow-up for acute kidney injury and chronic kidney disease. Status post IV fluids Renal function is slightly improved. Serum creatinine staying at 2.9. No significant complaints today. Hemoglobin 7.5 grams yesterday. Objective - Vital Signs Vital signs: Vital Signs Temp 97.6 F 01/25/25 19:17 Pulse 64 01/25/25 19:17 Resp 16 01/25/25 19:17 BP 145/78 01/25/25 19:17 Pulse Ox 100 01/25/25 19:17 FiO2 Intake & Output 01/25/25 01/25/25 01/26/25 06:59 18:59 06:59 Intake Total 480 Output Total 500 800 Balance -20 -800 Weight 75 kg Intake: Oral 480 Output: Urine 500 800 Other: Voiding Method External Catheter External Catheter External Catheter # Voids 3 - Exam Patient is awake, comfortable, no acute distress. He is tearful Examination of the heart S1 and S2 Examination of the lungs bilateral breath sounds are heard Abdomen is soft nontender Examination of lower extremities shows lacerations right leg which are currently dressed. 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 Acute kidney injury secondary to severe anemia and underlying infection. ATN, nonoliguric. UA suggestive of UTI. CT scan shows bilateral hydronephrosis but bladder scan showed 172 mL currently maintained on IV fluids. Renal function is slightly improved since admission. Patient is being followed by urology. 2. 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 Status post fall 4. Anemia with no active bleeding noted, hemoglobin 6.3 g/dL. Underlying anemia of chronic disease. Significant iron deficiency with iron saturation of 6.2%. Status post 1 unit packed RBCs 5. Metabolic acidosis maintained on oral sodium bicarb 6. UTI with urine culture growing Pseudomonas 7. Chronic incomplete bladder emptying, being followed by urology and maintained on tamsulosin. 8. Right arm wound maintained on antibiotics. Plan: Continue with CellCept and prednisone. Continue antibiotics as per ID.
[2025-01-26 07:48] LABS: Glucose,Whole Blood 185 mg/dL (70-110)
[2025-01-26 12:11] LABS: Glucose,Whole Blood 174 mg/dL (70-110)
--- NOTE | 2025-01-26 15:48 | P.PN ---
Subjective Progress Note Date: 01/26/25 Hospital Course: 74 year old M with PMH of CKD stage IV, HTN, HLD, DM, HFrEF, DVT presents to the ED for lower abdominal pain. In the ED he underwent extensive evaluation. BP 142/101, HR 101, T 98.6F, RR 18, 99% on RA. CBC, Coag panel, CMP significant for WBC 18.15, RBC 2.86, Hg 7.7, Hct 23.4, Na 133, bicarb 20, BUN 102, Cr 3.28, alb 2.9. Lactic acid 1.7. Lipase 27. Amylase 56. UA large LE with 102 WBCs. EKG sinus tachycardia with PVCs. CXR neg. CT AP bilateral hydronephrosis, bladder wall thickening, multilevel superior endplate compression deformities (seen previously), diverticulosis. Started on Rocephin and admitted for further workup and mangement. 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 Renal function improved. Initially started on Rocephin for treatment of UTI. UCx grew Pseudomonas and he was switched to Cefepime on 01/22. Wound Cx growing MRSA, Proteus, Pseudomonas, Morganella though does not look infected. 01/26, seen examined at bedside, no acute events overnight, does not have any active complaints, was sitting in the recliner, has good appetite. Case management working on insurance authorization , Heart rate in 70s, BP 148/79, satting well on room air. Pertinent positives and negatives as discussed above, a complete review of systems was performed and all other systems are negative. Vitals Signs Reviewed. General: [nontoxic], [no distress], [appears at stated age] Derm: [warm], [dry] multiple bruises, abrasions over the right upper extremity, bilateral lower extremities Head: [atraumatic], [normocephalic], [symmetric] Eyes: [EOMI], [no lid lag], [anicteric sclera] Mouth: [no lip lesion], [mucus membranes moist] Cardiovascular: [S1S2 reg], systolic murmur murmur] Lungs: [CTA bilateral], [no rhonchi, no rales] , [no accessory muscle use] Abdominal: [soft], [ nontender to palpation], [no guarding], [no appreciable organomegaly] Ext: [no gross muscle atrophy bilateral lower extremity edema], [no contractures] Neuro: [ CN II-XI grossly intact], [no focal neuro deficits] Psych: [Alert], [oriented], [appropriate affect] Assessment and Plan: Sepsis secondary to Pseudomonas aeruginosa UTI: Cefepime 1g IV BID (SOT 01/22, will be switched to fluoroquinolones at discharge Acute on chronic anemia - No signs of active bleeding. Transfused 1 PRBC 01/19. Iron studies shows Fe def. Status post 3 days of ferric gluconate 125 mg IV QD. Aranesp 60 mcg SQ weekly. -Morning CBC ordered VANIA on CKD stage IV -Biopsy proven crescentic GN. Chronic outlet obstruction. Continue Flomax 0.4 mg PO BID. Cellcept 250 mg PO BID. Prednisone 20 mg PO QD. Bladder scan PRN. IV hydration as above. - Nephrology and Urology on board. -Check BMP in the morning RU + BL LE abrasions: Wound cultures as above. Does not appear infected. Local wound care. HTN: Metoprolol 50 mg PO BID. HLD: Lipitor 40 mg PO QD. 2 DM on insulin : ISS + Accuchecks ACHS along with hypoglycemic precautions. HFrEF not in acute exacerbation: 3+ LE edema. CXR no acute process. DVT: Eliquis 5 mg PO BID. Resolved: HypoK, Anion gap metabolic acidosis DVT ppx: Eliquis Code status: Full code Anticipated discharge place: Rehab Anticipated discharge time: stable, pending insurance Objective - Vital Signs Vital signs: Vital Signs Temp 97.6 F 01/26/25 12:18 Pulse 75 01/26/25 12:18 Resp 18 01/26/25 12:18 BP 146/81 01/26/25 12:18 Pulse Ox 100 01/26/25 12:18 FiO2 Intake & Output 01/25/25 01/26/25 01/26/25 18:59 06:59 18:59 Intake Total 1160 Output Total 478 431 2418 Balance -800 260 -1100 Weight 74.5 kg Intake: Oral 1160 Output: Urine 460 565 9415 Other: Voiding Method External Catheter External Catheter External Catheter # Voids 1 - Labs CBC & Chem 7: 01/24/25 06:02 01/24/25 06:02 Labs: Abnormal Lab Results - Last 24 Hours (Table) 07/28/25 07/28/25 07/29/25 Range/Units 17:09 19:59 07:47 POC Glucose (mg/dL) 267 H 224 H 185 H (70-110) mg/dL 01/26/25 Range/Units 12:10 POC Glucose (mg/dL) 174 H (70-110) mg/dL
[2025-01-26 17:07] LABS: Glucose,Whole Blood 205 mg/dL (70-110)
--- NOTE | 2025-01-26 18:02 | P.PN ---
Subjective Patient is seen for follow-up for acute kidney injury and chronic kidney disease. Status post IV fluids Renal function is slightly improved. Serum creatinine staying at 2.9. No significant complaints today. Objective - Vital Signs Vital signs: Vital Signs Temp 97.6 F 01/26/25 12:18 Pulse 75 01/26/25 12:18 Resp 18 01/26/25 12:18 BP 146/81 01/26/25 12:18 Pulse Ox 100 01/26/25 12:18 FiO2 Intake & Output 01/25/25 01/26/25 01/26/25 18:59 06:59 18:59 Intake Total 1160 Output Total 077 522 2765 Balance -800 260 -1100 Weight 74.5 kg Intake: Oral 1160 Output: Urine 908 620 7389 Other: Voiding Method External Catheter External Catheter External Catheter # Voids 1 - Exam Patient is awake, comfortable, no acute distress. He is tearful Examination of the heart S1 and S2 Examination of the lungs bilateral breath sounds are heard Abdomen is soft nontender Examination of lower extremities shows lacerations right leg which are currently dressed. 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 Acute kidney injury secondary to severe anemia and underlying infection. ATN, nonoliguric. UA suggestive of UTI. CT scan shows bilateral hydronephrosis but bladder scan showed 172 mL. Status post IV fluids.. Renal function is slightly improved since admission. Patient is being followed by urology. 2. 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 Status post fall 4. Anemia with no active bleeding noted, hemoglobin 6.3 g/dL. Underlying anemia of chronic disease. Significant iron deficiency with iron saturation of 6.2%. Status post 1 unit packed RBCs 5. Metabolic acidosis maintained on oral sodium bicarb 6. UTI with urine culture growing Pseudomonas 7. Chronic incomplete bladder emptying, being followed by urology and maintained on tamsulosin. 8. Right arm wound maintained on antibiotics. Plan: Continue with CellCept and prednisone. Continue antibiotics as per ID.
[2025-01-26 20:25] LABS: Glucose,Whole Blood 292 mg/dL (70-110)
[2025-01-27 06:34] LABS: Basophils # (A) 0.01 10*3/uL (0.00-0.10); Basophils % (A) 0.1 %; Eosinophils # (A) 0.05 10*3/uL (0.04-0.35); Eosinophils % (A) 0.4 %; HCT 23.0 % (39.6-50.0); HGB 7.3 g/dL (13.0-17.0); Lymphocytes # (A) 0.92 10*3/uL (0.90-5.00); Lymphocytes % (A) 8.0 %; MCH 26.4 pg (27.0-32.0); MCHC 31.7 g/dL (32.0-37.0); MCV 83.0 fL (80.0-97.0); Monocytes # (A) 0.70 10*3/uL (0.20-1.00); Monocytes % (A) 6.1 %; Neutrophils # (A) 9.42 10*3/uL (1.80-7.70); Neutrophils % (A) 81.7 %; Platelet Count 335 10*3/uL (140-440); RBC 2.77 10*6/uL (4.40-5.60); RDW 15.9 % (11.5-14.5); WBC 11.53 10*3/uL (4.50-10.00)
[2025-01-27 07:00] LABS: African American GFR (CKD) 24 (>60 ml/min/1.73 sqM); Anion Gap 9 mmol/L; Calcium 8.3 mg/dL (8.4-10.2); Carbon Dioxide 18 mmol/L (22-30); Chloride 110 mmol/L (98-107); Glucose 127 mg/dL (74-99); Non-African American GFR(CKD) 21 (>60 ml/min/1.73 sqM); Potassium 4.0 mmol/L (3.5-5.1); Sodium 137 mmol/L (137-145)
[2025-01-27 07:01] LABS: Blood Urea Nitrogen 107 mg/dL (9-20)
[2025-01-27 07:14] LABS: Glucose,Whole Blood 166 mg/dL (70-110)
--- NOTE | 2025-01-27 08:16 | P.PN ---
Subjective Patient is seen in follow-up for acute kidney injury and chronic kidney disease. Renal function stable. Oral intake is good. Has been voiding. Vital signs are stable. General: No acute distress. HEENT: Head exam is unremarkable. LUNGS: No audible rhonchi or wheezes. HEART: Rate and Rhythm are regular. ABDOMEN: Non-tender. EXTREMITITES: 1+ edema left lower extremity. No drainage. Objective - Vital Signs Vital signs: Vital Signs Temp 97.9 F 01/27/25 07:48 Pulse 71 01/27/25 07:48 Resp 16 01/27/25 07:48 BP 163/95 01/27/25 07:48 Pulse Ox 100 01/27/25 07:48 FiO2 Intake & Output 01/26/25 01/27/25 01/27/25 18:59 06:59 18:59 Output Total 1100 450 Balance -1100 -450 Weight 63.5 kg Output: Urine 1100 450 Other: Voiding Method External Catheter External Catheter # Voids 1 - Labs CBC & Chem 7: 01/27/25 05:35 01/27/25 05:35 Labs: Abnormal Lab Results - Last 24 Hours (Table) 01/26/25 01/26/25 01/26/25 Range/Units 12:10 17:06 20:23 WBC (4.50-10.00) 10*3/uL RBC (4.40-5.60) 10*6/uL Hgb (13.0-17.0) g/dL Hct (39.6-50.0) % MCH (27.0-32.0) pg MCHC (32.0-37.0) g/dL RDW (11.5-14.5) % Immature Gran # (0.00-0.04) 10*3/uL Neutrophils # (1.80-7.70) 10*3/uL Chloride (98-107) mmol/L Carbon Dioxide (22-30) mmol/L BUN (9-20) mg/dL Creatinine (0.66-1.25) mg/dL Glucose (74-99) mg/dL POC Glucose (mg/dL) 174 H 205 H 292 H (70-110) mg/dL Calcium (8.4-10.2) mg/dL 01/27/25 01/27/25 01/27/25 Range/Units 05:35 05:35 07:12 WBC 11.53 H (4.50-10.00) 10*3/uL RBC 2.77 L (4.40-5.60) 10*6/uL Hgb 7.3 L (13.0-17.0) g/dL Hct 23.0 L (39.6-50.0) % MCH 26.4 L (27.0-32.0) pg MCHC 31.7 L (32.0-37.0) g/dL RDW 15.9 H (11.5-14.5) % Immature Gran # 0.43 H (0.00-0.04) 10*3/uL Neutrophils # 9.42 H (1.80-7.70) 10*3/uL Chloride 110 H (98-107) mmol/L Carbon Dioxide 18 L (22-30) mmol/L BUN 107 H* (9-20) mg/dL Creatinine 2.86 H (0.66-1.25) mg/dL Glucose 127 H (74-99) mg/dL POC Glucose (mg/dL) 166 H (70-110) mg/dL Calcium 8.3 L (8.4-10.2) mg/dL Assessment and Plan Plan: Assessment: 1. Acute kidney injury secondary to ATN secondary to severe sepsis and anemia. Improved. Creatinine peaked at 3.4 this admission and is 2.86 today. Elevated BUN partially due to steroids. 2. Chronic incomplete bladder emptying being followed by urology. On Flomax. 3. 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 4. Acute blood loss anemia status post blood transfusion this admission. On Aranesp. 5. Metabolic acidosis secondary to acute kidney injury/chronic kidney disease. On oral bicarb. 6. Right arm wound and Pseudomonas UTI on antibiotics. Plan: Resume IV fluids with LR at 50 cc an hour. Encourage oral intake. Avoid nephrotoxins. Continue to monitor renal function and urine output.
[2025-01-27] MEDS: LACTATED RINGERS 1,000 ML IV SCH (09:26)
[2025-01-27 12:26] LABS: Glucose,Whole Blood 149 mg/dL (70-110)
--- NOTE | 2025-01-27 14:40 | P.PN ---
Subjective Progress Note Date: 01/27/25 Hospital Course: 74 year old M with PMH of CKD stage IV, HTN, HLD, DM, HFrEF, DVT presents to the ED for lower abdominal pain. In the ED he underwent extensive evaluation. BP 142/101, HR 101, T 98.6F, RR 18, 99% on RA. CBC, Coag panel, CMP significant for WBC 18.15, RBC 2.86, Hg 7.7, Hct 23.4, Na 133, bicarb 20, BUN 102, Cr 3.28, alb 2.9. Lactic acid 1.7. Lipase 27. Amylase 56. UA large LE with 102 WBCs. EKG sinus tachycardia with PVCs. CXR neg. CT AP bilateral hydronephrosis, bladder wall thickening, multilevel superior endplate compression deformities (seen previously), diverticulosis. Started on Rocephin and admitted for further workup and mangement. 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 Renal function improved. Initially started on Rocephin for treatment of UTI. UCx grew Pseudomonas and he was switched to Cefepime on 01/22. Wound Cx growing MRSA, Proteus, Pseudomonas, Morganella though does not look infected. 01/27, seen examined at bedside, no acute events overnight, does not have any active complaints, was sitting in the recliner, has good appetite. Case management working on insurance authorization , Heart rate in 70s, BP 145/74, satting well on room air. Morning blood work showed stable hemoglobin 7.3, improved leukocytosis 11.5, creatinine improving 2.86, BUN up from 107, glucose better controlled, started on gentle IV hydration by nephrology Pertinent positives and negatives as discussed above, a complete review of systems was performed and all other systems are negative. Vitals Signs Reviewed. General: [nontoxic], [no distress], [appears at stated age] Derm: [warm], [dry] multiple bruises, abrasions over the right upper extremity, bilateral lower extremities Head: [atraumatic], [normocephalic], [symmetric] Eyes: [EOMI], [no lid lag], [anicteric sclera] Mouth: [no lip lesion], [mucus membranes moist] Cardiovascular: [S1S2 reg], systolic murmur murmur] Lungs: [CTA bilateral], [no rhonchi, no rales] , [no accessory muscle use] Abdominal: [soft], [ nontender to palpation], [no guarding], [no appreciable organomegaly] Ext: [no gross muscle atrophy bilateral lower extremity edema], [no contractures] Neuro: [ CN II-XI grossly intact], [no focal neuro deficits] Psych: [Alert], [oriented], [appropriate affect] Assessment and Plan: Sepsis secondary to Pseudomonas aeruginosa UTI: Cefepime 1g IV BID (SOT 01/22, will be switched to fluoroquinolones at discharge Acute on chronic anemia - No signs of active bleeding. Transfused 1 PRBC 01/19. Iron studies shows Fe def. Status post 3 days of ferric gluconate 125 mg IV QD. Aranesp 60 mcg SQ weekly. - Stable hemoglobin VNAIA on CKD stage IV -Biopsy proven crescentic GN. Chronic outlet obstruction. Continue Flomax 0.4 mg PO BID. Cellcept 250 mg PO BID. Prednisone 20 mg PO QD. Bladder scan PRN. IV hydration as above. - Nephrology and Urology on board. - LR at 50 cc/h RU + BL LE abrasions: Wound cultures as above. Does not appear infected. Local wound care. HTN: Metoprolol 50 mg PO BID. HLD: Lipitor 40 mg PO QD. 2 DM on insulin : ISS + Accuchecks ACHS along with hypoglycemic precautions. HFrEF not in acute exacerbation: 3+ LE edema. CXR no acute process. DVT: Eliquis 5 mg PO BID. Resolved: HypoK, Anion gap metabolic acidosis DVT ppx: Eliquis Code status: Full code Anticipated discharge place: Rehab Anticipated discharge time: stable, pending insurance Objective - Vital Signs Vital signs: Vital Signs Temp 97.9 F 01/27/25 07:48 Pulse 71 01/27/25 08:00 Resp 16 01/27/25 08:00 BP 163/95 01/27/25 07:48 Pulse Ox 100 01/27/25 07:48 FiO2 Intake & Output 01/26/25 01/27/25 01/27/25 18:59 06:59 18:59 Intake Total 240 Output Total 1100 450 Balance -1100 -450 240 Weight 63.5 kg Intake: Oral 240 Output: Urine 1100 450 Other: Voiding Method External Catheter External Catheter External Catheter # Voids 1 - Labs CBC & Chem 7: 01/27/25 05:35 01/27/25 05:35 Labs: Abnormal Lab Results - Last 24 Hours (Table) 01/26/25 01/26/25 01/27/25 Range/Units 17:06 20:23 05:35 WBC 11.53 H (4.50-10.00) 10*3/uL RBC 2.77 L (4.40-5.60) 10*6/uL Hgb 7.3 L (13.0-17.0) g/dL Hct 23.0 L (39.6-50.0) % MCH 26.4 L (27.0-32.0) pg MCHC 31.7 L (32.0-37.0) g/dL RDW 15.9 H (11.5-14.5) % Immature Gran # 0.43 H (0.00-0.04) 10*3/uL Neutrophils # 9.42 H (1.80-7.70) 10*3/uL Chloride (98-107) mmol/L Carbon Dioxide (22-30) mmol/L BUN (9-20) mg/dL Creatinine (0.66-1.25) mg/dL Glucose (74-99) mg/dL POC Glucose (mg/dL) 205 H 292 H (70-110) mg/dL Calcium (8.4-10.2) mg/dL 01/27/25 01/27/25 Range/Units 05:35 07:12 WBC (4.50-10.00) 10*3/uL RBC (4.40-5.60) 10*6/uL Hgb (13.0-17.0) g/dL Hct (39.6-50.0) % MCH (27.0-32.0) pg MCHC (32.0-37.0) g/dL RDW (11.5-14.5) % Immature Gran # (0.00-0.04) 10*3/uL Neutrophils # (1.80-7.70) 10*3/uL Chloride 110 H (98-107) mmol/L Carbon Dioxide 18 L (22-30) mmol/L BUN 107 H* (9-20) mg/dL Creatinine 2.86 H (0.66-1.25) mg/dL Glucose 127 H (74-99) mg/dL POC Glucose (mg/dL) 166 H (70-110) mg/dL Calcium 8.3 L (8.4-10.2) mg/dL
[2025-01-27 16:58] LABS: Glucose,Whole Blood 206 mg/dL (70-110)
[2025-01-27 20:34] LABS: Glucose,Whole Blood 255 mg/dL (70-110)
[2025-01-28 07:14] LABS: Glucose,Whole Blood 112 mg/dL (70-110)
[2025-01-28 08:12] VITALS: BP 159/81; PULSE 74; RESP 20; TEMP 97.7
--- NOTE | 2025-01-28 10:11 | P.PN ---
Subjective Progress Note Date: 01/28/25 Discharge Diagnosis: Secondary to Pseudomonas aeruginosa UTI VANIA on CKD stage IV Right upper and bilateral lower extremity abrasions Hypertension Hyperlipidemia Type II DM on insulin HFrEF not in acute exacerbation DVT on [facility] Course: 4 year old M with PMH of CKD stage IV, HTN, HLD, DM, HFrEF, DVT presents to the ED for lower abdominal pain. In the ED he underwent extensive evaluation. BP 142/101, HR 101, T 98.6F, RR 18, 99% on RA. CBC, Coag panel, CMP significant for WBC 18.15, RBC 2.86, Hg 7.7, Hct 23.4, Na 133, bicarb 20, BUN 102, Cr 3.28, alb 2.9. Lactic acid 1.7. Lipase 27. Amylase 56. UA large LE with 102 WBCs. EKG sinus tachycardia with PVCs. CXR neg. CT AP bilateral hydronephrosis, bladder wall thickening, multilevel superior endplate compression deformities (seen previously), diverticulosis. Started on Rocephin and admitted for further workup and mangement. 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 Renal function improved. Initially started on Rocephin for treatment of UTI. UCx grew Pseudomonas and he was switched to Cefepime on 01/22. Wound Cx growing MRSA, Proteus, Pseudomonas, Morganella though does not look infected. 01/28, seen examined at bedside, no acute events overnight, does not have any active complaints, was sitting in the recliner, has good appetite. Patient finished 7 days of cefepime, no antibiotics prescribed at discharge. Patient to follow-up with nephrology, urology, PCP, will be discharged to [facility]. Function at discharge stable with creatinine 2.86, hemoglobin stable 7.3, Aranesp weekly for Fe deficiency Vital signs reviewed and stable. General: Nontoxic, no distress, appears at stated age Derm: Warm, dry multiple bruises, abrasions over the right upper extremity, bilateral lower extremities Head: Atraumatic, normocephalic, symmetric Eyes: EOMI, no lid lag, anicteric sclera Mouth: No lip lesion, mucus membranes moist Cardiovascular: S1S2 reg, systolic murmur murmur] Lungs: CTA bilateral, no rhonchi, no rales, no accessory muscle use Abdominal: Soft, nontender to palpation, no guarding, no appreciable organomegaly Ext: No gross muscle atrophy bilateral lower extremity edema, no contractures Neuro: CN II-XI grossly intact, no focal neuro deficits Psych: Alert, oriented, appropriate affect A total of 40 minutes of time were spent preparing this complex discharge summary. Objective - Vital Signs Vital signs: Vital Signs Temp 97.7 F 01/28/25 07:18 Pulse 74 01/28/25 08:00 Resp 20 01/28/25 08:00 BP 159/81 01/28/25 07:18 Pulse Ox 100 01/28/25 07:18 FiO2 Intake & Output 01/27/25 01/28/25 01/28/25 18:59 06:59 18:59 Intake Total 2940 Output Total 1000 900 Balance 1940 -900 Weight 65.8 kg Intake: Oral 2940 Output: Urine 1000 900 Other: Voiding Method External Catheter External Catheter External Catheter # Bowel Movements 2 - Labs CBC & Chem 7: 01/27/25 05:35 01/27/25 05:35 Labs: Abnormal Lab Results - Last 24 Hours (Table) 01/27/25 01/27/25 01/27/25 Range/Units 12:26 16:56 20:32 POC Glucose (mg/dL) 149 H 206 H 255 H (70-110) mg/dL 01/28/25 Range/Units 07:13 POC Glucose (mg/dL) 112 H (70-110) mg/dL
--- NOTE | 2025-01-28 10:19 | P.PN ---
Subjective Patient is seen in follow-up for acute kidney injury and chronic kidney disease. Renal function stable as of yesterday. Oral intake is good. Has been voiding. Vital signs are stable. General: No acute distress. HEENT: Head exam is unremarkable. LUNGS: No audible rhonchi or wheezes. HEART: Rate and Rhythm are regular. ABDOMEN: Non-tender. EXTREMITITES: 1+ edema left lower extremity. No drainage. Objective - Vital Signs Vital signs: Vital Signs Temp 97.7 F 01/28/25 07:18 Pulse 74 01/28/25 08:00 Resp 20 01/28/25 08:00 BP 159/81 01/28/25 07:18 Pulse Ox 100 01/28/25 07:18 FiO2 Intake & Output 01/27/25 01/28/25 01/28/25 18:59 06:59 18:59 Intake Total 2940 Output Total 1000 900 400 Balance 1940 -900 -400 Weight 65.8 kg Intake: Oral 2940 Output: Urine 1000 900 400 Other: Voiding Method External Catheter External Catheter External Catheter # Bowel Movements 2 - Labs CBC & Chem 7: 01/27/25 05:35 01/27/25 05:35 Labs: Abnormal Lab Results - Last 24 Hours (Table) 01/27/25 01/27/25 01/27/25 Range/Units 12:26 16:56 20:32 POC Glucose (mg/dL) 149 H 206 H 255 H (70-110) mg/dL 01/28/25 Range/Units 07:13 POC Glucose (mg/dL) 112 H (70-110) mg/dL Assessment and Plan Plan: Assessment: 1. Acute kidney injury secondary to ATN secondary to severe sepsis and anemia. Improved. Creatinine peaked at 3.4 this admission -2.86 yesterday. Elevated BUN partially due to steroids. 2. Chronic incomplete bladder emptying being followed by urology. On Flomax. 3. 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 4. Acute blood loss anemia status post blood transfusion this admission. On Aranesp. 5. Metabolic acidosis secondary to acute kidney injury/chronic kidney disease. On oral bicarb. 6. Right arm wound and Pseudomonas UTI on antibiotics. Plan: Maintain gentle IV hydration. Encouraged oral intake. Avoid nephrotoxins. Continue to monitor renal function and urine output. Possible discharge to ECF today.
[2025-01-28 11:23] LABS: BUN/Creat Ratio 29.71 Ratio (12.00-20.00); Blood Urea Nitrogen 101.0 mg/dL (9.0-27.0); Glucose 99 mg/dL (70-110)
[2025-01-28 11:24] LABS: Anion Gap 14.80 mmol/L (4.00-12.00); Calcium 8.2 mg/dL (8.7-10.3); Carbon Dioxide 18.2 mmol/L (21.6-31.8); Chloride 106 mmol/L (96-109); Magnesium 1.4 mg/dL (1.5-2.4); Potassium 3.5 mmol/L (3.5-5.5); Sodium 139 mmol/L (135-145)
--- NOTE | 2025-01-28 11:51 | P.DS ---
Providers Date of admission: 01/18/25 18:49 Attending physician: Sheron Ragland MD Consults: 01/18/25 18:48 Consult Physician Routine Consulting Provider: Ericka Sheehan Consult Reason/Comments: renalFail Do you want consulting provider notified?: Yes 01/19/25 03:05 Consult Physician Routine Consulting Provider: Severino Barney Consult Reason/Comments: B/L hydroureter Do you want consulting provider notified?: Yes, Notify in am Primary care physician: Rudolph [facility] Course: Discharge Diagnosis: Secondary to Pseudomonas aeruginosa UTI VANIA on CKD stage IV Right upper and bilateral lower extremity abrasions Hypertension Hyperlipidemia Type II DM on insulin HFrEF not in acute exacerbation DVT on [facility] Course: 4 year old M with PMH of CKD stage IV, HTN, HLD, DM, HFrEF, DVT presents to the ED for lower abdominal pain. In the ED he underwent extensive evaluation. BP 142/101, HR 101, T 98.6F, RR 18, 99% on RA. CBC, Coag panel, CMP significant for WBC 18.15, RBC 2.86, Hg 7.7, Hct 23.4, Na 133, bicarb 20, BUN 102, Cr 3.28, alb 2.9. Lactic acid 1.7. Lipase 27. Amylase 56. UA large LE with 102 WBCs. EKG sinus tachycardia with PVCs. CXR neg. CT AP bilateral hydronephrosis, bladder wall thickening, multilevel superior endplate compression deformities (seen previously), diverticulosis. Started on Rocephin and admitted for further workup and mangement. 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 Renal function improved. Initially started on Rocephin for treatment of UTI. UCx grew Pseudomonas and he was switched to Cefepime on 01/22. Wound Cx growing MRSA, Proteus, Pseudomonas, Morganella though does not look infected. 01/28, seen examined at bedside, no acute events overnight, does not have any active complaints, was sitting in the recliner, has good appetite. Patient finished 7 days of cefepime, no antibiotics prescribed at discharge. Patient to follow-up with nephrology, urology, PCP, will be discharged to [facility]. Function at discharge stable with creatinine 2.86, hemoglobin stable 7.3, Aranesp weekly for Fe deficiency Vital signs reviewed and stable. General: Nontoxic, no distress, appears at stated age Derm: Warm, dry multiple bruises, abrasions over the right upper extremity, bilateral lower extremities Head: Atraumatic, normocephalic, symmetric Eyes: EOMI, no lid lag, anicteric sclera Mouth: No lip lesion, mucus membranes moist Cardiovascular: S1S2 reg, systolic murmur murmur] Lungs: CTA bilateral, no rhonchi, no rales, no accessory muscle use Abdominal: Soft, nontender to palpation, no guarding, no appreciable organomegaly Ext: No gross muscle atrophy bilateral lower extremity edema, no contractures Neuro: CN II-XI grossly intact, no focal neuro deficits Psych: Alert, oriented, appropriate affect A total of 40 minutes of time were spent preparing this complex discharge summary. Patient Condition at Discharge: Fair Plan - Discharge Summary Discharge Rx Participant: Yes New Discharge Prescriptions: New Tamsulosin [Flomax] 0.4 mg PO BID #60 cap Pantoprazole [Protonix] 40 mg PO AC-BID #60 tab Darbepoetin Chin [Aranesp] 60 mcg SQ Q7D #7 each Continue Metoprolol Tartrate [Lopressor] 50 mg PO BID-W/MEALS Magnesium Oxide [Mag-Ox] 400 mg PO DAILY Acetaminophen Tab [Tylenol] 650 mg PO Q8H PRN PRN Reason: Pain Aspirin EC [Ecotrin Low Dose] 81 mg PO DAILY Famotidine [Pepcid] 20 mg PO DAILY tab Vits A & D-White Pet-Lanolin [Vitamin A & D Ointment] 1 applic TOPICAL BID each Apixaban [Eliquis] 5 mg PO BID Insulin NPH Hum/Reg Insulin Hm [humuLIN 70/30 Kwikpen] 10 unit SQ BID predniSONE [Deltasone] 20 mg PO DAILY #30 tab mycophenolate mofetiL [Cellcept] 250 mg PO BID Atorvastatin [Lipitor] 40 mg PO DAILY SILVER sulfADIAZINE Cream [Silvadene 1% Cream] 1 applic TOPICAL BID Sodium Bicarbonate Tab 650 mg PO BID tab Discharge Medication List Acetaminophen Tab [Tylenol] 650 mg PO Q8H PRN 11/17/23 [History] Magnesium Oxide [Mag-Ox] 400 mg PO DAILY 11/17/23 [History] Metoprolol Tartrate [Lopressor] 50 mg PO BID-W/MEALS 11/17/23 [History] Insulin NPH Hum/Reg Insulin Hm [humuLIN 70/30 Kwikpen] 10 unit SQ BID 12/17/23 [History] predniSONE [Deltasone] 20 mg PO DAILY #30 tab 12/20/23 [Rx] mycophenolate mofetiL [Cellcept] 250 mg PO BID 04/01/24 [History] Aspirin EC [Ecotrin Low Dose] 81 mg PO DAILY 09/24/24 [History] Atorvastatin [Lipitor] 40 mg PO DAILY 09/24/24 [History] SILVER sulfADIAZINE Cream [Silvadene 1% Cream] 1 applic TOPICAL BID 12/07/24 [History] Famotidine [Pepcid] 20 mg PO DAILY tab 12/17/24 [Rx] Sodium Bicarbonate Tab 650 mg PO BID tab 12/17/24 [Rx] Vits A & D-White Pet-Lanolin [Vitamin A & D Ointment] 1 applic TOPICAL BID each 12/17/24 [Rx] Apixaban [Eliquis] 5 mg PO BID 01/18/25 [History] Darbepoetin Cihn [Aranesp] 60 mcg SQ Q7D #7 each 01/28/25 [Rx] Pantoprazole [Protonix] 40 mg PO AC-BID #60 tab 01/28/25 [Rx] Tamsulosin [Flomax] 0.4 mg PO BID #60 cap 01/28/25 [Rx] Follow up Appointment(s)/Referral(s): Rudolph Peterson MD [Primary Care Provider] - 1-2 days [facility], [NON-STAFF] - 1 Week Macho Claudio DO [STAFF PHYSICIAN] - 1 Week Sebastien Tomlinson MD [STAFF PHYSICIAN] - 2 Weeks Activity/Diet/Wound Care/Special Instructions: Please, follow-up with your PCP, cyber intel planner, urologist. Discharge Disposition: HOME WITH HOSPICE
== END 2025-01-28 12:53 | DRG 871 ==
LOC: EC 12:27 → 5NMEDONC 18:49
PROVIDERS: ADMIT Internal Medicine; ATTEND Internal Medicine
PROC: 30233N1 Transfusion of Nonautologous Red Blood Cells into Peripheral Vein, Percutaneous Approach (ICD-10-PCS; principal; 2025-01-19)
DX: A41.52 Sepsis due to Pseudomonas (principal); N17.0 Acute kidney failure with tubular necrosis; E87.20 Acidosis, unspecified; I82.401 Acute embolism and thrombosis of unspecified deep veins of right lower extremity; D62 Acute posthemorrhagic anemia; I42.9 Cardiomyopathy, unspecified; D63.1 Anemia in chronic kidney disease; I13.0 Hypertensive heart and chronic kidney disease with heart failure and stage 1 through stage 4 chronic kidney disease, or unspecified chronic kidney disease; N18.4 Chronic kidney disease, stage 4 (severe); E11.22 Type 2 diabetes mellitus with diabetic chronic kidney disease; N13.6 Pyonephrosis; I50.22 Chronic systolic (congestive) heart failure; L03.113 Cellulitis of right upper limb; R65.20 Severe sepsis without septic shock; Z79.4 Long term (current) use of insulin; E78.5 Hyperlipidemia, unspecified; Z91.81 History of falling; B95.62 Methicillin resistant Staphylococcus aureus infection as the cause of diseases classified elsewhere; E61.1 Iron deficiency; E87.6 Hypokalemia; I25.2 Old myocardial infarction; I49.3 Ventricular premature depolarization; N40.1 Benign prostatic hyperplasia with lower urinary tract symptoms; S40.811A Abrasion of right upper arm, initial encounter; S80.812A Abrasion, left lower leg, initial encounter; S80.811A Abrasion, right lower leg, initial encounter; K57.30 Diverticulosis of large intestine without perforation or abscess without bleeding; R29.6 Repeated falls; T38.0X5A Adverse effect of glucocorticoids and synthetic analogues, initial encounter; Z79.01 Long term (current) use of anticoagulants; Z79.52 Long term (current) use of systemic steroids; Z79.82 Long term (current) use of aspirin; Z79.624 Long term (current) use of inhibitors of nucleotide synthesis; Z82.49 Family history of ischemic heart disease and other diseases of the circulatory system; Z79.899 Other long term (current) drug therapy; Z87.891 Personal history of nicotine dependence; X58.XXXA Exposure to other specified factors, initial encounter; Z86.14 Personal history of Methicillin resistant Staphylococcus aureus infection
CPT/HCPCS: 36415; 71046; 74176; 80048; 80053; 81001; 82150; 82728; 83036; 83540; 83550; 83605; 83690; 83735; 84100; 85025; 85027; 85610; 85652; 85730; 86140; 86850; 86900; 86901; 86920; 87040; 87070; 87075; 87077; 87086; 87186; 87205; 93005; 96361; 96365; 96366; 96367; 96375; 99285